=== PATIENT | male | born 1955 | race Caucasian/White ===

== ENCOUNTER 2017-02-12 22:41 | Observation (INO) | payer OTHER ==
[~2017-02-12] VITALS: Ht 182.9 cm; Wt 191.4 kg
--- NOTE | 2017-02-12 22:59 | ED Cardiac General ---
History of Present Illness General Chief Complaint: Chest Pain Stated Complaint: CHEST PAIN Nursing Triage Note: PT TO ED 8 W/ FAMILY FOR C/O ELEVATED BP, LT ARM ET LT NECK PAIN ET INCREASED SOB. REPORTS HE HAS BEEN RETAINING FLUID SO HE'S INCREASED HIS LASIX. NO OTHER C/O VOICED Source: patient, spouse Exam Limitations: no limitations History of Present Illness Time seen by provider: 22:52 Initial Comments Patient presents ER with his by private conveyance with chief complaint of about half an hour prior to arrival he started feeling left arm and neck and jaw pain as well as numbness. No chest pain, shortness of breath, cough. He is chronically on O2 and stop smoking about 25 years ago. He has a rescue inhaler at home for COPD but does not used recently. He has a history of coronary disease. He denies nausea, chest pain, fever, chills. He says he had a nuclear stress test about 6 months ago in [place] that was negative as well as a echocardiogram that showed his ejection fraction had improved to about 27% from 24%. He has a history of CHF for which she is using 40 mg Lasix once a day. Yesterday he started using it twice a day because he felt that he was getting his more swollen. He does not check his weight daily. He recently moved approximately one month ago to the area from [place] after a hospitalization stay and acute on chronic kidney injury that his doctor recommended he get out of elevation for. He is diabetic and uses glipizide. He is not with thyroid disease. He does have high blood pressure yesterday his blood pressure was quite elevated so he took an extra half of his long-acting metoprolol in the evening per his doctor's instructions. Today it was still elevated so he decided to come to the ER after started having the left arm numbness. NTG SL TRANSFORMATION ANALYST: No ASA po TRANSFORMATION ANALYST: No Allergies and Home Medications Allergies Coded Allergies: meperidine (Verified Allergy, Unknown, 02/12/17) Home Medications Aspirin 81 Mg Tablet.dr, 81 MG PO, (Reported) Benazepril HCl 40 Mg Tab, 20 MG PO DAILY, (Reported) Cyanocobalamin (Vitamin B-12) 1,000 Mcg Tablet, 1,000 MCG PO, (Reported) Furosemide 40 Mg Tablet, 80 MG PO BID, (Reported) Glipizide 10 Mg Tablet, 10 MG PO DAILY, (Reported) Levothyroxine Sodium 175 Mcg Tablet, 175 MCG PO DAILY, (Reported) Metoprolol Succinate 100 Mg Tab.er.24h, 100 MG PO DAILY, (Reported) Omeprazole 20 Mg Capsule.dr, 20 MG PO DAILY, (Reported) Potassium Chloride 10 Meq Tab.er.prt, 10 MEQ PO, (Reported) Pravastatin Sodium 40 Mg Tablet, 40 MG PO HS, (Reported) Spironolactone 25 Mg Tablet, 25 MG PO DAILY, (Reported) Topiramate 25 Mg Tablet, 25 MG PO BID, (Reported) Review of Systems Constitutional: No chills, No diaphoresis EENTM: No Eye Pain, No Ear Pain Respiratory: Denies Cough, Denies Orthopnea, Denies Shortness of Air (he is at his baseline level of shortness of air), SOA With Exertion Cardiovascular: See HPI, Denies Chest Pain, Edema, Denies Syncope Gastrointestinal: Denies Abdominal Pain, Denies Constipated, Denies Diarrhea, Denies Nausea, Denies Vomiting Genitourinary: Denies Burning, Denies Discharge Musculoskeletal: No back pain, No joint pain Skin: No pruritus, No rash Psychiatric/Neurological: Denies Headache, Denies Numbness, Denies Paresthesia Endocrine: Denies Increased Thrist, Denies Increased Urine Past Tqdlruq-Nkgixs-Nkqgbq Hx Patient Social History Alcohol Use: Denies Use Recreational Drug Use: No Smoking Status: Never a Smoker Recent Foreign Travel: No Contact w/Someone Who Travel: No Recent Infectious Disease Expo: No Recent Hopitalizations: No Respiratory Respiratory Disorders: COPD Cardiovascular Cardiac Disorders: Heart Attack, Hypertension Physical Exam Vital Signs Vital Sign - Last 12Hours Capillary Refill : Less Than 3 Seconds General Appearance: Mild Distress, Obese HEENT: PERRL/EOMI, Pharynx Normal Neck: Normal Inspection, Non Tender, Supple Respiratory: Chest Non Tender, No Accessory Muscle Use, Decreased Breath Sounds Cardiovascular: Regular Rate, Rhythm, No Edema, No Gallop Gastrointestinal: Normal Bowel Sounds, Non Tender, Soft Extremity: Normal Capillary Refill, Pedal Edema (2+) Neurologic/Psychiatric: Alert, Oriented x3, Normal Mood/Affect Skin: Normal Color, Warm/Dry Progress/Results/Core Measures Results/Orders Lab Results Laboratory Tests Test 02/12/17 22:50 Range/Units White Blood Count 10.0 4.3-11.0 10^3/uL Red Blood Count 5.27 4.35-5.85 10^6/uL Hemoglobin 15.2 13.3-17.7 G/DL Hematocrit 48 40-54 % Mean Corpuscular Volume 90 80-99 FL Mean Corpuscular Hemoglobin 29 25-34 PG Mean Corpuscular Hemoglobin Concent 32 32-36 G/DL Red Cell Distribution Width 13.2 10.0-14.5 % Platelet Count 208 130-400 10^3/uL Mean Platelet Volume 10.4 7.4-10.4 FL Neutrophils (%) (Auto) 62 42-75 % Lymphocytes (%) (Auto) 28 12-44 % Monocytes (%) (Auto) 9 0-12 % Eosinophils (%) (Auto) 2 0-10 % Basophils (%) (Auto) 0 0-10 % Neutrophils # (Auto) 6.2 1.8-7.8 X 10^3 Lymphocytes # (Auto) 2.8 1.0-4.0 X 10^3 Monocytes # (Auto) 0.9 0.0-1.0 X 10^3 Eosinophils # (Auto) 0.2 0.0-0.3 10^3/uL Basophils # (Auto) 0.0 0.0-0.1 10^3/uL Prothrombin Time 12.6 12.2-14.7 SEC INR Comment 0.9 0.8-1.4 Activated Partial Thromboplast Time 29 24-35 SEC Sodium Level 137 135-145 MMOL/L Potassium Level 4.0 3.6-5.0 MMOL/L Chloride Level 100 98-107 MMOL/L Carbon Dioxide Level 26 21-32 MMOL/L Anion Gap 11 5-14 MMOL/L Blood Urea Nitrogen 17 7-18 MG/DL Creatinine 1.19 0.60-1.30 MG/DL Estimat Glomerular Filtration Rate > 60 BUN/Creatinine Ratio 14 Glucose Level 194 H 70-105 MG/DL Calcium Level 9.4 8.5-10.1 MG/DL Magnesium Level 2.0 1.8-2.4 MG/DL Total Bilirubin 0.7 0.1-1.0 MG/DL Aspartate Amino Transf (AST/SGOT) 33 5-34 U/L Alanine Aminotransferase (ALT/SGPT) 30 0-55 U/L Alkaline Phosphatase 142 H 40-136 U/L Myoglobin 52.2 10.0-92.0 NG/ML Troponin I < 0.30 <0.30 NG/ML B-Type Natriuretic Peptide 342.9 H <100.0 PG/ML Total Protein 7.9 6.4-8.2 GM/DL Albumin 3.9 3.2-4.5 GM/DL My Orders Orders - BERKLEY NORIEGA Cbc With Automated Diff (02/12/17 23:00) Magnesium (02/12/17:00) Chest 1 View, Ap/Pa Only (02/12/17 23:00) Ekg Tracing (02/12/17:00) Cardiac Profile 1 (02/12/17:00) Comprehensive Metabolic Panel (02/12/17:00) Myoglobin Serum (02/12/17:00) Protime With Inr (02/12/17:00) Partial Thromboplastin Time (02/12/17 23:00) O2 (02/12/17:00) Monitor-Rhythm Ecg Trace Only (02/12/17:00) Lipid Panel (02/13/17 06:00) Aspirin Chewable Tablet (Baby Aspirin Ch (02/12/17 23:00) Saline Lock/Iv-Start (02/12/17 23:00) BNP (02/12/17:00) Medications Given in ED Current Medications Medications Dose Ordered Sig/Brittany Route Start Time Stop Time Status Last Admin Dose Admin Aspirin 324 mg ONCE ONCE PO 02/12/17 23:00 02/12/17 23:03 DC 02/12/17 23:08 324 MG Vital Signs/I&O Vital Sign - Last 12Hours 02/12/17 02/12/17 22:41 22:41 Temp 98.1 Pulse 105 Resp 28 B/P (MAP) 196/126 Pulse Ox 96 O2 Delivery Nasal Cannula Nasal Cannula O2 Flow Rate 3.00 3.0 Blood Pressure Mean: 149 Progress Note : Time: 01:51 Progress Note Patient is a history of an ejection fraction of 27% but his BNP is only marginally elevated. He is edematous and while he doesn't check his weight see feels he is much more edematous than normal. He is having a few symptoms of atypical angina. Would be reasonable to do a overnight observation and rule out of his ACS with serial troponins and EKGs and its impending give him some IV Lasix and trying get him caught up with his fluid status. ECG Initial ECG Impression Date: Feb 12, 2017 Initial ECG Impression Time: 22:47 Initial ECG Rate: 97 Initial ECG Rhythm: Normal Sinus Initial ECG Intervals: Normal Initial ECG Impression: Normal, Nonspecific Changes Initial ECG Comparisson: No Previous ECG Available Comment No ST wave elevation or depression Diagnostic Imaging Diagonstic Imaging: Xray Plain Films/CT/US/NM/MRI: chest Comments Poor penetration. Patchy pulmonary infiltrates versus underpenetration. Reviewed: Reviewed by Me Departure Communication Time/Spoke to Admitting Phy: 00:[phone] Guzman and she agrees with plan will see the patient in the morning. She wants Dr. Lincoln, cardiology consult in the morning. Impression Impression: Primary Impression: ACS (acute coronary syndrome) Additional Impression: CHF exacerbation Qualified Codes: I50.23 - Acute on chronic systolic (congestive) heart failure Disposition: 09 ADMITTED INPATIENT (obs) Condition: Stable Admissions Decision to Admit Reason: Admit from ER (General) Decision to Admit/Date: Feb 13, 2017 Time/Decision to Admit Time: 01:04 BERKLEY NORIEGA Feb 12, 2017 22:59
[2017-02-12] MEDS ORDERED: ASPIRIN 81 MG CHEW (CHILDREN'S ASA) PO ONE (23:00)
[2017-02-12] MEDS ORDERED: BNZ40T PO (23:05)
[2017-02-12] MEDS ORDERED: METO-395 PO (23:05)
[2017-02-12] MEDS ORDERED: PRAV40TA2 PO (23:05)
[2017-02-12] MEDS ORDERED: GLIP10TA13 PO (23:05)
[2017-02-12] MEDS ORDERED: CYAN100088 PO (23:05)
[2017-02-12] MEDS ORDERED: POTA10TA36 PO (23:05)
[2017-02-12] MEDS ORDERED: ASPI-586 PO (23:05)
[2017-02-12] MEDS ORDERED: OMEP20CA12 PO (23:05)
[2017-02-12] MEDS ORDERED: FURO-124 PO (23:05)
[2017-02-12] MEDS ORDERED: SPIR25TA3 PO (23:05)
[2017-02-12] MEDS ORDERED: TOPI25TA10 PO (23:05)
[2017-02-12] MEDS ORDERED: LEVO175T5 PO (23:05)
[2017-02-12 23:12] LABS: BASOPHILS % (AUTO) 0 % (0-10); EOSINOPHILS # (AUTO) 0.2 10^3/uL (0.0-0.3); EOSINOPHILS % (AUTO) 2 % (0-10); LYMPHOCYTES # (AUTO) 2.8 X 10^3 (1.0-4.0); LYMPHOCYTES % (AUTO) 28 % (12-44); MEAN CORPUSCULAR HEMOGLOBIN 29 PG (25-34); MEAN CORPUSCULAR HGB CONC 32 G/DL (32-36); MEAN CORPUSCULAR VOLUME 90 FL (80-99); MEAN PLATELET VOLUME 10.4 FL (7.4-10.4); MONOCYTES # (AUTO) 0.9 X 10^3 (0.0-1.0); MONOCYTES % (AUTO) 9 % (0-12); NEUTROPHILS # (AUTO) 6.2 X 10^3 (1.8-7.8); NEUTROPHILS % (AUTO) 62 % (42-75); PLATELET COUNT 208 10^3/uL (130-400); RED BLOOD COUNT 5.27 10^6/uL (4.35-5.85); RED CELL DISTRIBUTION WIDTH 13.2 % (10.0-14.5)
[2017-02-12 23:16] LABS: INR 0.9 (0.8-1.4); PROTHROMBIN TIME PATIENT 12.6 SEC (12.2-14.7)
[2017-02-12 23:39] LABS: ALANINE AMINOTRANSFERASE 30 U/L (0-55); ALBUMIN 3.9 GM/DL (3.2-4.5); ANION GAP 11 MMOL/L (5-14); ASPARTATE AMINO TRANSFERASE 33 U/L (5-34); BILIRUBIN,TOTAL 0.7 MG/DL (0.1-1.0); BLOOD UREA NITROGEN 17 MG/DL (7-18); BUN/CREATININE RATIO 14; CALCIUM 9.4 MG/DL (8.5-10.1); CARBON DIOXIDE 26 MMOL/L (21-32); CHLORIDE 100 MMOL/L (98-107); CREATININE SERUM 1.19 MG/DL (0.60-1.30); GFR ESTIMATED > 60; GLUCOSE 194 MG/DL (70-105); SODIUM 137 MMOL/L (135-145); TOTAL PROTEIN 7.9 GM/DL (6.4-8.2)
[2017-02-12 23:47] LABS: MYOGLOBIN SERUM 52.2 NG/ML (10.0-92.0)
[2017-02-13] MEDS ORDERED: FUROSEMIDE 40 MG/4 ML INJ (LASIX) IVP ONE (01:00)
[2017-02-13 03:35] VITALS: BP 135/78
[2017-02-13] MEDS ORDERED: morphine INJ 4 MG/ML 1 ML (VIAL/SYRINGE) IVP PRN (04:15)
[2017-02-13] MEDS ORDERED: NITROGLYCERIN SUBLINGUAL 0.4 MG TAB (NITROSTAT) SL PRN (04:15)
[2017-02-13] MEDS ORDERED: CATHETER FLUSH 10 ML SYR IV PRN (05:30)
[2017-02-13 06:18] LABS: BASOPHILS % (AUTO) 0 % (0-10); EOSINOPHILS # (AUTO) 0.2 10^3/uL (0.0-0.3); EOSINOPHILS % (AUTO) 2 % (0-10); LYMPHOCYTES # (AUTO) 1.9 X 10^3 (1.0-4.0); LYMPHOCYTES % (AUTO) 23 % (12-44); MEAN CORPUSCULAR HEMOGLOBIN 29 PG (25-34); MEAN CORPUSCULAR HGB CONC 32 G/DL (32-36); MEAN CORPUSCULAR VOLUME 90 FL (80-99); MEAN PLATELET VOLUME 10.2 FL (7.4-10.4); MONOCYTES # (AUTO) 0.8 X 10^3 (0.0-1.0); MONOCYTES % (AUTO) 9 % (0-12); NEUTROPHILS # (AUTO) 5.4 X 10^3 (1.8-7.8); NEUTROPHILS % (AUTO) 66 % (42-75); PLATELET COUNT 191 10^3/uL (130-400); RED BLOOD COUNT 5.12 10^6/uL (4.35-5.85); RED CELL DISTRIBUTION WIDTH 13.2 % (10.0-14.5); WHITE BLOOD COUNT 8.2 10^3/uL (4.3-11.0)
[2017-02-13 06:49] LABS: ANION GAP 11 MMOL/L (5-14); BLOOD UREA NITROGEN 18 MG/DL (7-18); BUN/CREATININE RATIO 17; CALCIUM 8.9 MG/DL (8.5-10.1); CARBON DIOXIDE 29 MMOL/L (21-32); CHLORIDE 98 MMOL/L (98-107); CREATININE SERUM 1.09 MG/DL (0.60-1.30); GFR ESTIMATED > 60; GLUCOSE 203 MG/DL (70-105); POTASSIUM 3.7 MMOL/L (3.6-5.0); SODIUM 138 MMOL/L (135-145)
[2017-02-13 06:58] LABS: TROPONIN I < 0.30 NG/ML (<0.30)
[2017-02-13 06:58] LABS: CHOLESTEROL 153 MG/DL (< 200); DIRECT LDL 100 MG/DL (1-129); TRIGLYCERIDES 195 MG/DL (<150); VLDL CHOLESTEROL 39 MG/DL (5-40)
[2017-02-13] MEDS: CATHETER FLUSH 10 ML SYR IV SCH ×3 (07:01→20:12)
[2017-02-13] MEDS: inSUlin (REGULAR) HUMAN 1 UNIT/0.01 ML (CHARGE PER UNIT) SC SCH ×5 (07:06→20:39)
[2017-02-13 07:19] VITALS: BP 115/69
--- NOTE | 2017-02-13 07:46 | Diagnostic Imaging Report ---
CLINICAL INDICATION: Patient complains of elevated blood pressure, left arm and left leg pain and increased shortness of breath. EXAM: Portable chest x-ray upright view. COMPARISON: None. FINDINGS: There is cardiomegaly. There is minimally prominent pulmonary vasculature centrally. There is no lung infiltrate. There is no pleural effusion or pneumothorax. There are degenerative spurs involving the thoracic spine. IMPRESSION: 1: There is cardiomegaly and minimal prominence of the pulmonary vasculature centrally. These findings may be related to mild congestive heart failure. 2: Otherwise, the remainder of the chest x-ray exam is unremarkable for patient's age. Dictated by: Dictated on workstation # [id number]
--- NOTE | 2017-02-13 08:08 | Diagnostic Imaging Report ---
CLINICAL INDICATION: Patient with shortness of air. Followup exam. Portable chest x-ray upright view. COMPARISON: Chest x-ray dated 02/12/2017. FINDINGS: Stable cardiomegaly. There is interval decrease in pulmonary vascular congestion. Lungs are clear. There is no pleural effusion or pneumothorax. The remainder of this exam shows no significant interval change compared to the prior study of comparison. IMPRESSION: Stable cardiomegaly with interval resolution of the previously seen pulmonary vascular congestion. Dictated by: Dictated on workstation # [id number]
[2017-02-13] MEDS: lisINopril 20 MG (ZESTRIL) TAB PO SCH ×2 (08:21→10:28)
[2017-02-13] MEDS: FUROSEMIDE 40 MG/4 ML INJ (LASIX) IVP SCH ×2 (08:22→17:35)
[2017-02-13] MEDS ORDERED: ASPIRIN E.C. 325 MG (ECOTRIN) TABLET PO SCH (09:00)
[2017-02-13] MEDS ORDERED: meTOprolol SUCCINATE 100 MG (TOPROL XL) TAB PO SCH (09:00)
[2017-02-13] MEDS ORDERED: ASPI-983 PO (09:17)
--- NOTE | 2017-02-13 09:48 | Consultation-Cardiology ---
HPI-Cardiology Cardiology Consultation: Date of Consultation 02/13/17 Time Seen by Provider: 09:50 Date of Admission Attending Physician Jessie Guzman MD Admitting Physician Consulting Physician LANCE TAPIA MD, MA, FACP, FACC, FSCAI, CCDS HPI: Chief Complaint: Shortness of breath HPI: 61 yo man with a h/o cm and CHF who has recently moved to this area from [place] He has been experiencing increasing shortness of breath and leg swelling for several day. Has simultaneously had an elevated bp. No cp. No palp or syncope. Does report some cp down the L side of the arm for several days. Chronic leg swelling that has been worse lately Review of Systems-Cardiology Review of Systems Constitutional: malaise, tiredness Eyes: No vision change Ears/Nose/Throat: No ear discharge, No nasal drainage, No recent hearing loss Respiratory: As described under HPI Cardiovascular: As described under HPI Gastrointestinal: No constipation, No diarrhea, No nausea, No vomiting Genitourinary: No dysuria, No hematuria, No urine frequency changes Musculoskeletal: back pain (chornic), joint pain (chronci) Skin: No rash, No ulcerations Psychiatric/Neurological: No seizure, No focal weakness, No syncope Hematologic: No bleeding abnormalities PMO-Nxgmqy-Xerlii Hx Patient Social History Alcohol Use: Rarely Uses Recreational Drug Use: No Smoking Status: Former Smoker Type Used: Cigarettes Recent Foreign Travel: No Recent Infectious Disease Expo: No Hospitalization with Isolation: Denies Physical Abuse Screen: No Sexual Abuse: No Past Medical History PMH As described under Assessment. Family Medical History Family History: Cardiovascular disease 19 FATHER 19 MOTHER Diabetes mellitus 19 FATHER 19 MOTHER Hypercholesterolemia 19 FATHER 19 MOTHER Hypertension 19 FATHER 19 MOTHER Myocardial infarction 19 FATHER 19 MOTHER Allergies and Home Medications Allergies Coded Allergies: meperidine (Verified Allergy, Unknown, 02/12/17) Home Medications Aspirin 81 Mg Tablet.dr, 81 MG PO HS, (Reported) Benazepril HCl 40 Mg Tab, 20 MG PO DAILY, (Reported) TAKES 1/2 (40MG) TABLET Cyanocobalamin (Vitamin B-12) 1,000 Mcg Tablet, 1,000 MCG PO HS, (Reported) Furosemide 40 Mg Tablet, 40-80 MG PO DAILY, (Reported) TAKES 1 (40MG) TABLET DAILY - CAN TAKE 2 (40MG) TABLETS IF NOTICEABLE SWELLING Glipizide 10 Mg Tablet, 10 MG PO DAILY, (Reported) Levothyroxine Sodium 175 Mcg Tablet, 175 MCG PO DAILY, (Reported) Metoprolol Succinate 100 Mg Tab.er.24h, 100 MG PO DAILY, (Reported) Omeprazole 20 Mg Capsule.dr, 20 MG PO DAILY, (Reported) Potassium Chloride 10 Meq Tab.er.prt, 10 MEQ PO DAILY, (Reported) TAKES WHEN TAKING 80MG OF FUROSEMIDE Pravastatin Sodium 40 Mg Tablet, 40 MG PO HS, (Reported) Spironolactone 25 Mg Tablet, 25 MG PO 1200, (Reported) Topiramate 25 Mg Tablet, 25 MG PO HS, (Reported) Physical Exam-Cardiology Physical Exam Vital Signs/I&O Vital Sign - Last 12Hours 02/12/17 02/12/17 02/12/17 02/13/17 22:41 22:41 22:41 01:50 Temp 98.1 Pulse 105 88 Resp 28 24 B/P (MAP) 196/126 Pulse Ox 96 95 95 O2 Delivery Nasal Cannula Nasal Cannula Nasal Cannula Nasal Cannula O2 Flow Rate 3.00 2.00 3.0 2.00 02/13/17 02/13/17 02/13/17 02/13/17 02:15 03:00 03:35 07:02 Temp 98.7 Pulse 111 89 87 Resp 18 B/P (MAP) 135/78 Pulse Ox 97 O2 Delivery Nasal Cannula Room Air O2 Flow Rate 2.00 02/13/17 07:19 Temp 96.7 Pulse 95 Resp 20 B/P (MAP) 115/69 Pulse Ox 96 O2 Delivery Room Air Capillary Refill : Less Than 3 Seconds Constitutional: AAO x 3, well-developed, well-nourished, other (obese) HEENT: PERRL, No xanthelasmas are seen Neck: No carotid bruit, carotid pulses are 2 + bilaterally, with good upstrokes Respiratory: No accessory muscle use, other (fair bilat air entry; increased exp phase; basal crackles) Cardiovascular: regular rate-rhythm, S1 and S2, systolic murmur (faint MANUEL at card base) Gastrointestinal: No tender, No guarding, No rebound, audible bowel sounds Extremities: No clubbing, significant edema Neurologic/Psychiatric: grossly intact, power is 5/5 both on sides Skin: No rash on exposed areas, No ulcerations on exposed areas Data Review Labs Laboratory Tests 02/12/17 22:50: White Blood Count 10.0, Red Blood Count 5.27, Hemoglobin 15.2, Hematocrit 48, Mean Corpuscular Volume 90, Mean Corpuscular Hemoglobin 29, Mean Corpuscular Hemoglobin Concent 32, Red Cell Distribution Width 13.2, Platelet Count 208, Mean Platelet Volume 10.4, Neutrophils (%) (Auto) 62, Lymphocytes (%) (Auto) 28 , Monocytes (%) (Auto) 9, Eosinophils (%) (Auto) 2, Basophils (%) (Auto) 0, Neutrophils # (Auto) 6.2, Lymphocytes # (Auto) 2.8, Monocytes # (Auto) 0.9, Eosinophils # (Auto) 0.2, Basophils # (Auto) 0.0, Prothrombin Time 12.6, INR Comment 0.9, Activated Partial Thromboplast Time 29, Sodium Level 137, Potassium Level 4.0, Chloride Level 100, Carbon Dioxide Level 26, Anion Gap 11, Blood Urea Nitrogen 17, Creatinine 1.19, Estimat Glomerular Filtration Rate > 60 , BUN/Creatinine Ratio 14, Glucose Level 194H, Calcium Level 9.4, Magnesium Level 2.0, Total Bilirubin 0.7, Aspartate Amino Transf (AST/SGOT) 33, Alanine Aminotransferase (ALT/SGPT) 30, Alkaline Phosphatase 142H, Myoglobin 52.2, Troponin I < 0.30, B-Type Natriuretic Peptide 342.9H, Total Protein 7.9, Albumin 3.9 02/13/17 05:45: Triglycerides Level 195H, Cholesterol Level 153, LDL Cholesterol Direct 100, VLDL Cholesterol 39, HDL Cholesterol 25L 02/13/17 05:47: White Blood Count 8.2, Red Blood Count 5.12, Hemoglobin 14.7, Hematocrit 46, Mean Corpuscular Volume 90, Mean Corpuscular Hemoglobin 29, Mean Corpuscular Hemoglobin Concent 32, Red Cell Distribution Width 13.2, Platelet Count 191, Mean Platelet Volume 10.2, Neutrophils (%) (Auto) 66, Lymphocytes (%) (Auto) 23 , Monocytes (%) (Auto) 9, Eosinophils (%) (Auto) 2, Basophils (%) (Auto) 0, Neutrophils # (Auto) 5.4, Lymphocytes # (Auto) 1.9, Monocytes # (Auto) 0.8, Eosinophils # (Auto) 0.2, Basophils # (Auto) 0.0, Sodium Level 138, Potassium Level 3.7, Chloride Level 98, Carbon Dioxide Level 29, Anion Gap 11, Blood Urea Nitrogen 18, Creatinine 1.09, Estimat Glomerular Filtration Rate > 60, BUN/ Creatinine Ratio 17, Glucose Level 203H, Calcium Level 8.9, Troponin I < 0.30 Laboratory Tests 02/12/17 22:50 02/13/17 05:47 A/P-Cardiology Assessment/Admission Diagnosis Shortness of breath (multifactorial, as noted below) Ac on chronic systolic CHF Cardiomyopathy and chronic CHF, by history Obesity-hypoventilation syndrome H/o ac renal failure in 2015 in [place] ([facility]) DM II Hypertension Hyperlipidemia Quit smoking in the 1980s Discussion and Recomendations Continue therapy with diuretics, CYRUS-inhib, and bb Monitor labs Echo to eval LVEF MPI to eval for obs CAD Risk factor modification reviewed Clinical Quality Measures AMI/AHF: ASA po Prior to arrival: No DVT/VTE Risk/Contraindication: Risk Factor Score Per Nursin RFS Level Per Nursing on Admit: 3=High LANCE TAPIA MD FACP FAC CCDS Feb 13, 2017 09:48
[2017-02-13] MEDS ORDERED: BENAZEPRIL 20 MG (LOTENSIN) TAB PO NR (10:00)
[2017-02-13 11:42] VITALS: BP 147/88
[2017-02-13] MEDS ORDERED: BENAZEPRIL 20 MG (LOTENSIN) TAB PO ONE (12:15)
[2017-02-13 16:00] VITALS: BP 155/82
--- NOTE | 2017-02-13 17:01 | History & Physical-Hospitalist ---
HPI History of Present Illness: HPI/Chief Complaint The patient is a 61-year-old white male who presented to the emergency room late last night with complaints of shortness of breath and fluid retention. He reports that he has had problems for some time with congestive heart failure. He was found to have an ejection fraction while in [place] of 24 percent. A follow-up by his manager beverage showed that to have improved to 27 percent over about a 6 month period. He also suffers from COPD. He stopped smoking about 25 years ago. He has had chronic O2 use. It was recommended to him by his manager beverage in [place] that moving to a lower altitude would be a good move for his heart and lung health. He has been here about one month. He reports that he had been taking Lasix 40 mg daily. He had continued to retain fluid in spite of this and had increased it to twice daily on Monday. This did not change much. He is also hypertensive. He reported that shortly before he came to the emergency room he noticed the onset of numbness in his left arm. He states that he had had 2 heart attacks about 20 years ago. Obesity has been a problem as well. His present weight is 430 pounds Source: patient Exam Limitations: no limitations Date Seen 02/13/17 Time Seen by Provider: 16:56 Attending Physician Adam Plascencia MD PCP Referring Physician Date of Admission Feb 13, 2017 at 02:05 Home Medications & Allergies Home Medications Reviewed patient Home Medication Reconciliation Form Allergies Allergies Coded Allergies meperidine (Verified Allergy, Unknown, 02/12/17) Past Pamthij-Bikaab-Hvfrdv Hx Patient Social History Alcohol Use: Rarely Uses Number of Drinks Today: 0 Recreational Drug Use: No Smoking Status: Former Smoker Former Smoker, Quit: Feb 13, 1987 Type Used: Cigarettes Physical Abuse Screen: No Sexual Abuse: No Recent Foreign Travel: No Contact w/other who traveled: No Recent Hopitalizations: No Recent Infectious Disease Expo: No Seasonal Allergies Seasonal Allergies: No Surgeries No (KNEE SURGERY, LEFT SHOULDER SURGERY, HERNIA REPAIR, GALLBLADDER OUT) Respiratory Yes Currently Using CPAP: Yes Currently Using BIPAP: No Cardiovascular Yes Heart Attack, Hypertension Neurological No (4 TIA'S, 1 STROKE ) Reproductive System Sexually Transmitted Disease: No HIV/AIDS: No Genitourinary Yes Kidney Stones Gastrointestinal Yes Gastroesophageal Reflux Musculoskeletal Yes (HIP FX, TWO TORN ROTATOR CUFFS ) Degenerate Disk Disease, Arthritis, Chronic Back Pain, Fractures Endocrine History of Endocrine Disorders: Yes Are Your Blood Sugars Over 250: Yes ("SOMETIMES" ) HEENT History of HEENT Disorders: Yes HEENT Disorders: Cataract Cancer No Psychosocial History of Psychiatric Problem: No Integumentary History of Skin or Integumenta: No Blood Transfusions History of Blood Disorders: No Adverse Reaction to a Blood Tr: No Family Medical History Family Hx: Cardiovascular disease 19 FATHER 19 MOTHER Diabetes mellitus 19 FATHER 19 MOTHER Hypercholesterolemia 19 FATHER 19 MOTHER Hypertension 19 FATHER 19 MOTHER Myocardial infarction 19 FATHER 19 MOTHER Review of Systems Constitutional: see HPI EENTM: no symptoms reported Respiratory: dyspnea on exertion, orthopnea, short of breath Cardiovascular: chest pain Gastrointestinal: no symptoms reported Genitourinary: hematuria, incontinence Musculoskeletal: no symptoms reported Skin: other (legs swollen to the point of redness and shine) Psychiatric/Neurological: No Symptoms Reported Physical Exam Physical Exam Vital Signs Capillary Refill : Less Than 3 Seconds General Appearance: Mild Distress, Moderate Distress Eyes: Bilateral Eye Normal Inspection HEENT: Normal ENT Inspection Neck: Full Range of Motion Respiratory: Decreased Breath Sounds (very distant) Cardiovascular: Other (heart tones poorly heard because of size) Gastrointestinal: Other (huge with extremely large pannus) Back: Normal Inspection Extremity: Swelling (extreme with redness to the knees. No blisters are noted. Skin is not particularly shiny at this point) Neurologic/Psychiatric: Alert, Oriented x3, No Motor/Sensory Deficits, Normal Mood/Affect Skin: Normal Color, Warm/Dry Lymphatic: No Adenopathy Results Results/Procedures Lab Assessment/Plan Admission Diagnosis Anasarca. 2.History of cardiomyopathy with the ejection fraction in the mid 20s. 3.COPD Assessment and Plan IV diuretics Clinical Quality Measures AMI/AHF: ASA po Prior to arrival: No DVT/VTE Risk/Contraindication: Risk Factor Score Per Nursin RFS Level Per Nursing on Admit: 3=High ADAM PLASCENCIA MD Feb 13, 2017 17:01
[2017-02-13 19:26] VITALS: BP 153/83
[2017-02-13] MEDS: meTOprolol SUCCINATE 100 MG (TOPROL XL) TAB PO SCH (20:13)
[2017-02-13] MEDS ORDERED: ATORVASTATIN 40 MG (LIPITOR) TABLET PO SCH (21:00)
[2017-02-13] MEDS ORDERED: ASPIRIN E.C. 81 MG (ECOTRIN) TAB PO SCH (21:00)
[2017-02-13 23:35] VITALS: BP 145/85
[2017-02-14 04:12] VITALS: BP 121/75
[2017-02-14] MEDS: inSUlin (REGULAR) HUMAN 1 UNIT/0.01 ML (CHARGE PER UNIT) SC SCH ×2 (05:53→11:13)
[2017-02-14] MEDS: CATHETER FLUSH 10 ML SYR IV SCH (05:55)
[2017-02-14] MEDS ORDERED: LEVOTHYROXINE 175 MCG PO SCH (06:30)
[2017-02-14 06:49] LABS: BASOPHILS % (AUTO) 0 % (0-10); EOSINOPHILS # (AUTO) 0.1 10^3/uL (0.0-0.3); EOSINOPHILS % (AUTO) 2 % (0-10); LYMPHOCYTES # (AUTO) 1.6 X 10^3 (1.0-4.0); LYMPHOCYTES % (AUTO) 22 % (12-44); MEAN CORPUSCULAR HEMOGLOBIN 29 PG (25-34); MEAN CORPUSCULAR HGB CONC 32 G/DL (32-36); MEAN CORPUSCULAR VOLUME 91 FL (80-99); MEAN PLATELET VOLUME 10.5 FL (7.4-10.4); MONOCYTES # (AUTO) 0.8 X 10^3 (0.0-1.0); MONOCYTES % (AUTO) 10 % (0-12); NEUTROPHILS % (AUTO) 66 % (42-75); PLATELET COUNT 197 10^3/uL (130-400); RED BLOOD COUNT 5.11 10^6/uL (4.35-5.85); RED CELL DISTRIBUTION WIDTH 13.4 % (10.0-14.5); WHITE BLOOD COUNT 7.6 10^3/uL (4.3-11.0)
[2017-02-14] MEDS ORDERED: OMEPRAZOLE 20 MG (PriLOSEC) CAP NON-FORMULARY PO SCH (07:00)
[2017-02-14] MEDS ORDERED: KCL 10 MEQ TAB (MICRO K) PO SCH (07:00)
[2017-02-14 07:09] LABS: ANION GAP 14 MMOL/L (5-14); BLOOD UREA NITROGEN 19 MG/DL (7-18); BUN/CREATININE RATIO 20; CALCIUM 9.4 MG/DL (8.5-10.1); CARBON DIOXIDE 26 MMOL/L (21-32); CHLORIDE 99 MMOL/L (98-107); CREATININE SERUM 0.93 MG/DL (0.60-1.30); GFR ESTIMATED > 60; GLUCOSE 183 MG/DL (70-105); POTASSIUM 3.7 MMOL/L (3.6-5.0); SODIUM 139 MMOL/L (135-145)
[2017-02-14 07:31] LABS: THYROID STIMULATING HORMONE 4.02 UIU/ML (0.35-4.94)
[2017-02-14] MEDS ORDERED: REGADENOSON 0.4 MG/5 ML SYR (LEXISCAN) IV ONE ×2 (08:45→09:30)
[2017-02-14] MEDS ORDERED: BENAZEPRIL 20 MG (LOTENSIN) TAB PO SCH (09:00)
[2017-02-14] MEDS ORDERED: BENAZEPRIL 40 MG PO SCH (09:00)
[2017-02-14 09:01] VITALS: BP 134/83
[2017-02-14 09:22] VITALS: BP 152/105
[2017-02-14 10:00] VITALS: BP_SYST 121; BP_SYST 177; BP_DIAS 75; BP_DIAS 94
[2017-02-14] MEDS: FUROSEMIDE 40 MG/4 ML INJ (LASIX) IVP SCH (10:36)
--- NOTE | 2017-02-14 10:36 | Progress Note-Cardiology ---
Cardiology SOAP Progress Note Subjective: Continued shortness of breath, which is better. No c/o CP, palpitations, syncope or near syncope. LE edema improving. Objective: I&O/Vital Signs Vital Sign - Last 12Hours 02/14/17 02/14/17 02/14/17 02/14/17 04:12 06:40 09:01 09:22 Temp 98.6 Pulse 84 102 88 117 Resp 20 B/P (MAP) 121/75 134/83 152/105 Pulse Ox 97 97 98 O2 Delivery Nasal Cannula O2 Flow Rate 1.50 2.00 2.00 02/14/17 02/14/17 02/14/17 02/14/17 10:00 10:00 12:00 13:06 Temp 97.8 97.8 Pulse 113 90 93 Resp 24 20 B/P (MAP) 177/94 164/74 Pulse Ox 95 96 O2 Delivery Nasal Cannula Nasal Cannula Nasal Cannula O2 Flow Rate 2.00 1.50 2.00 Weight (Pounds): 422 Weight (Ounces): 2.0 Weight (Calculated Kilograms): [phone] Constitutional: AAO x 3, well-developed, well-nourished, other (obese) Respiratory: No accessory muscle use, other (fair bilat air entry; increased exp phase; basal crackles) Cardiovascular: regular rate-rhythm, S1 and S2, systolic murmur (faint MANUEL at card base) Gastrointestional: No tender, No guarding, No rebound, audible bowel sounds Extremities: No clubbing, significant edema Neurologic/Psychiatric: grossly intact, power is 5/5 both on sides Skin: No rash on exposed areas, No ulcerations on exposed areas Results/Procedures: Labs Laboratory Tests 02/13/17 16:16: Glucometer 237H 02/13/17 20:37: Glucometer 237H 02/14/17 05:40: White Blood Count 7.6, Red Blood Count 5.11, Hemoglobin 14.7, Hematocrit 47, Mean Corpuscular Volume 91, Mean Corpuscular Hemoglobin 29, Mean Corpuscular Hemoglobin Concent 32, Red Cell Distribution Width 13.4, Platelet Count 197, Mean Platelet Volume 10.5H, Neutrophils (%) (Auto) 66, Lymphocytes (%) (Auto) 22 , Monocytes (%) (Auto) 10, Eosinophils (%) (Auto) 2, Basophils (%) (Auto) 0, Neutrophils # (Auto) 5.0, Lymphocytes # (Auto) 1.6, Monocytes # (Auto) 0.8, Eosinophils # (Auto) 0.1, Basophils # (Auto) 0.0, Sodium Level 139, Potassium Level 3.7, Chloride Level 99, Carbon Dioxide Level 26, Anion Gap 14, Blood Urea Nitrogen 19H, Creatinine 0.93, Estimat Glomerular Filtration Rate > 60, BUN/ Creatinine Ratio 20, Glucose Level 183H, Calcium Level 9.4, Magnesium Level 2.0 , Thyroid Stimulating Hormone (TSH) 4.02 02/14/17 05:53: Glucometer 183H 02/14/17 10:59: Glucometer 257H A/P: Assessment: Shortness of breath (multifactorial, as noted below) Ac on chronic systolic CHF Echo on 02/13/17: LVEF 35-40% MPI on 02/14/17: LVEF 30%, mod cardiomegaly, no distinct evidence of ischemia or infarction Cardiomyopathy and chronic CHF, by history Obesity-hypoventilation syndrome H/o ac renal failure in 2015 in [place] [facility]) DM II Hypertension Hyperlipidemia Quit smoking in the 1980s Plan: Continue therapy with diuretics, CYRUS-inhib, and bb Monitor labs Echo to eval LVEF - results pending MPI to eval for obs CAD - results pending Risk factor modification has been reviewed Physician Assessment Physician Assessment Shotness of breath better Lungs: good bilat air entry Cor: reg Leg: bilat mod leg edema A&R * As documented in our note above that I updated (italics) and as noted below * I discussed his CV w/u results with him * Given that his cm is more than a year old and LVEF seem around 35% or less, we recommend ICD. This was discussed in detail. He understands and states will think about it * He is anxious to go home * Close outpatient cardiac f/u is advised * Furosemide and K are being increased * We answered his questions in detail Clinical Quality Measures AMI/AHF: ASA po Prior to arrival: MOLLY Varma ANODIC OPERATOR Feb 14, 2017 10:36 LANCE TAPIA MD FACP [facility] CCDS Feb 14, 2017 16:00
[2017-02-14] MEDS: meTOprolol SUCCINATE 100 MG (TOPROL XL) TAB PO SCH (10:39)
[2017-02-14 12:00] VITALS: BP 164/74
[2017-02-14] MEDS ORDERED: SPIRONOLACTONE 25 MG (ALDACTONE) TAB PO SCH (12:00)
--- NOTE | 2017-02-14 14:33 | Progress Note-Hospitalist ---
Standard Progress Note Progress Notes/Assess & Plan Date Seen 02/14/17 Time Seen by Provider: 14:23 Diagnosis Anasarca. 2.History of cardiomyopathy with the ejection fraction in the mid 20s. 3.COPD Assess & Plan/Chief Complaint The patient reports that he feels much better today. He has produced a fluid balance of negative 3410. The recorded weight would have him down 5 kg. He appears comfortable and is ready for discharge by his measures. Physical exam: He is sitting at the bedside and appears quite comfortable. He is speaking easily in full sentences. Lungs are distant to auscultation. CV is also distant to auscultation. Extremities show the skin to be much less erythematous. In addition there is no shine and no blisters are noted. It appears that through past episodes he has a certain degree of scarring in the distribution of crew socks. There is a rather sharp bulge at the calf muscles. Impression: Anasarca. Congestive heart failure. Reported but unconfirmed ejection fraction in the mid 20 percent range Labs Laboratory Tests 02/12/17 22:50 02/13/17 05:47 02/14/17 05:40 Final Diagnosis Anasarca/congestive heart failure. 2.cardiomyopathy. 3.diabetes with poor performance status LONG PLASCENCIA MD Feb 14, 2017 14:32
[2017-02-14] MEDS ORDERED: FURO-124 PO (14:37)
[2017-02-14] MEDS ORDERED: POTA-51 PO (16:08)
[2017-02-14] MEDS ORDERED: FURO80TA83 PO (16:08)
[2017-02-14 16:10] VITALS: BP 115/84
--- NOTE | 2017-02-15 06:49 | STRESS TEST ---
DATE OF SERVICE: 02/14/2017 RESTING AND POST REGADENOSON TECHNETIUM 99M TETROFOSMIN SPECT CT IMAGING ORDERING PHYSICIAN: Dr. Ayoub. PRIMARY PHYSICIAN: Dr. Aparicio. CLINICAL DIAGNOSIS: Congestive heart failure. Baseline images were carried out after injection of 10.68 mCi of technetium-99M tetrofosmin. This was followed by 0.4 mg of regadenoson and 31.4 mCi of technetium-99m tetrofosmin for stress imaging. The electrocardiogram showed sinus rhythm. The electrocardiogram did not change significantly with the regadenoson infusion. He noted mild dizziness during the procedure, but otherwise tolerated the procedure well. Review of images at rest and following stress indicate a somewhat patchy tracer uptake, but there is no distinct perfusion defect consistent with significant myocardial ischemia or infarction. Gated images show global hypokinesis of the left ventricle. Left ventricular ejection fraction is calculated to be 30%. Left ventricular end diastolic volume is 142 mL. Ejection fraction is calculated to be 30%. CONCLUSIONS: 1. Global hypokinesis of the left ventricle with an ejection fraction of 30%. 2. Moderate cardiomegaly. 3. No distinct evidence of significant myocardial ischemia or infarction. Job ID: [id number] DocumentID: [id number] Dictated Date: 02/14/2017 15:49:01 Shift Production Associate Date: 02/14/2017 19:28:08 Dictated By: LANCE AYOUB MD, MA, FACP, FACC,
== END 2017-02-14 14:38 | disposition home or self-care (01) ==
LOC: ER 22:44 → 4TH 22:49 → UNDOADMOB 02-13 00:50 → 4TH 02-13 02:05 → UNDODISOB 02-14 14:38
PROVIDERS: ADMIT Internal Medicine; ATTEND Internal Medicine
DX: R60.1 Generalized edema (principal); I11.0 Hypertensive heart disease with heart failure; I50.22 Chronic systolic (congestive) heart failure; J44.9 Chronic obstructive pulmonary disease, unspecified; I25.10 Atherosclerotic heart disease of native coronary artery without angina pectoris; E11.9 Type 2 diabetes mellitus without complications; E78.5 Hyperlipidemia, unspecified; E66.2 Morbid (severe) obesity with alveolar hypoventilation; I25.2 Old myocardial infarction; Z79.82 Long term (current) use of aspirin; Z79.84 Long term (current) use of oral hypoglycemic drugs; Z79.899 Other long term (current) drug therapy; Z99.81 Dependence on supplemental oxygen; Z87.891 Personal history of nicotine dependence
CPT/HCPCS: 36415; 71010; 78452; 80048; 80053; 80061; 82962; 83735; 83874; 83880; 84443; 84484; 85025; 85610; 85730; 93005; 93017; 93306; 96365; G0378

== ENCOUNTER 2017-07-10 12:15 | Emergency (ER) | payer MEDICARE, OTHER ==
[~2017-07-10] VITALS: Ht 188 cm; Wt 189.2 kg
[~2017-07-10 12:15] MED LIST: ASPI-586 PO; ASPI-983 PO; BNZ40T PO; CYAN100088 PO; FURO-124 PO; FURO80TA83 PO; GLIP10TA13 PO; LEVO175T5 PO; METO-395 PO; OMEP20CA12 PO; POTA-51 PO; POTA10TA36 PO; PRAV40TA2 PO; SPIR25TA3 PO; TOPI25TA10 PO
--- NOTE | 2017-07-10 12:38 | ED Cardiac General ---
History of Present Illness General Chief Complaint: Cardiac/General Problems Stated Complaint: CP Nursing Triage Note: PT STATES HYPERTENSION FOR A COUPLE DAYS, LT ARM PAIN ALSO THAT COMES AND GOES. Source: patient Exam Limitations: no limitations History of Present Illness Time seen by provider: 12:35 Initial Comments To ER with reports of high blood pressure at 170/115 yesterday and today. With this he had some transient left arm pain. No shortness of breath, no diaphoresis , no nausea, no chest pain at any point. Currently he has no symptoms. His typical blood pressure is 170/80. He states that his heart "only functions at 27 %". During one of his previous admissions here cardiology wanted to place AICD but [facility] threw a kink in that plan and wanted him to have this done at the [facility] facility in [place]. 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 dates "I'm only here to get her to shut up" pointing to his Allergies and Home Medications Allergies Coded Allergies: meperidine (Verified Allergy, Unknown, 02/12/17) Uncoded Allergies: iv contrast (Adverse Reaction, Intermediate, 07/10/17) Home Medications Aspirin 81 Mg Tablet.dr, 81 MG PO HS, (Reported) Benazepril HCl 40 Mg Tab, 20 MG PO DAILY, (Reported) TAKES 1/2 (40MG) TABLET Cyanocobalamin (Vitamin B-12) 1,000 Mcg Tablet, 1,000 MCG PO HS, (Reported) Furosemide 80 Mg Tablet, 80 MG PO DAILY, #60 Ref 3 80 mg in the morning and 40 mg in the evening Prescribed by: MOLLY APPLE on 02/14/17 160 Glipizide 10 Mg Tablet, 10 MG PO DAILY, (Reported) Levothyroxine Sodium 175 Mcg Tablet, 175 MCG PO DAILY, (Reported) Metoprolol Succinate 100 Mg Tab.er.24h, 100 MG PO DAILY, (Reported) Omeprazole 20 Mg Capsule.dr, 20 MG PO DAILY, (Reported) Potassium Chloride 20 Meq Tablet.er, 20 MEQ PO BID, #60 Prescribed by: MOLLY APPLE on 02/14/17 1608 Pravastatin Sodium 40 Mg Tablet, 40 MG PO HS, (Reported) Spironolactone 25 Mg Tablet, 25 MG PO 1200, (Reported) Topiramate 25 Mg Tablet, 25 MG PO HS, (Reported) Review of Systems Constitutional: see HPI EENTM: No Symptoms Reported Respiratory: No Symptoms Reported Cardiovascular: See HPI, Denies Chest Pain, Denies Edema, Denies Irregular Heart Rate, Denies Lightheadedness, Denies Palpitations, Denies Syncope Gastrointestinal: No Symptoms Reported Genitourinary: No Symptoms Reported Musculoskeletal: see HPI Skin: no symptoms reported Psychiatric/Neurological: No Symptoms Reported Endocrine: No Symptoms Reported Hematologic/Lymphatic: No Symptoms Reported Past Ddkbyxa-Ttehaq-Csvsyh Hx Patient Social History Type Used: Cigarettes Former Smoker, Quit: Feb 13, 1987 Recent Foreign Travel: No Contact w/Someone Who Travel: No Recent Infectious Disease Expo: No Recent Hopitalizations: No Seasonal Allergies Seasonal Allergies: No Surgeries History of Surgeries: No (KNEE SURGERY, LEFT SHOULDER SURGERY, HERNIA REPAIR, GALLBLADDER OUT) Respiratory History of Respiratory Disorde: Yes Respiratory Disorders: Sleep Apnea, COPD Currently Using CPAP: Yes Currently Using BIPAP: No Cardiovascular History of Cardiac Disorders: Yes Cardiac Disorders: Heart Attack, Hypertension Neurological History of Neurological Disord: No (4 TIA'S, 1 STROKE ) Reproductive System Sexually Transmitted Disease: No HIV/AIDS: No Genitourinary History of Genitourinary Disor: Yes Genitourinary Disorders: Kidney Stones Gastrointestinal History of Gastrointestinal Di: Yes Gastrointestinal Disorders: Gastroesophageal Reflux Musculoskeletal History of Musculoskeletal Dis: Yes (HIP FX, TWO TORN ROTATOR CUFFS ) Musculoskeletal Disorders: Degenerate Disk Disease, Arthritis, Chronic Back Pain, Fractures Endocrine History of Endocrine Disorders: Yes HEENT History of HEENT Disorders: Yes HEENT Disorders: Cataract Cancer History of Cancer: No Psychosocial History of Psychiatric Problem: No Integumentary History of Skin or Integumenta: No Blood Transfusions History of Blood Disorders: No Adverse Reaction to a Blood Tr: No Family Medical History Family Medial History: Cardiovascular disease 19 FATHER 19 MOTHER Diabetes mellitus 19 FATHER 19 MOTHER Hypercholesterolemia 19 FATHER 19 MOTHER Hypertension 19 FATHER 19 MOTHER Myocardial infarction 19 FATHER 19 MOTHER Physical Exam Vital Signs Vital Sign - Last 12Hours 07/10/17 12:30 Temp 96.0 Pulse 111 B/P (MAP) 166/107 (126) Pulse Ox 96 O2 Delivery Room Air Capillary Refill : Less Than 3 Seconds General Appearance: No Apparent Distress, WD/WN HEENT: PERRL/EOMI, TMs Normal Neck: Full Range of Motion, Normal Inspection Respiratory: No Accessory Muscle Use, No Respiratory Distress Cardiovascular: Regular Rate, Rhythm, Normal Peripheral Pulses Gastrointestinal: Normal Bowel Sounds, Non Tender, Soft Extremity: Normal Capillary Refill, Normal Inspection Neurologic/Psychiatric: Alert, Oriented x3, No Motor/Sensory Deficits Skin: Normal Color, Warm/Dry Progress/Results/Core Measures Results/Orders Lab Results Laboratory Tests Test 07/10/17 12:40 07/10/17 15:16 Range/Units White Blood Count 7.4 4.3-11.0 10^3/uL Red Blood Count 5.55 4.35-5.85 10^6/uL Hemoglobin 16.3 13.3-17.7 G/DL Hematocrit 49 40-54 % Mean Corpuscular Volume 88 80-99 FL Mean Corpuscular Hemoglobin 29 25-34 PG Mean Corpuscular Hemoglobin Concent 33 32-36 G/DL Red Cell Distribution Width 13.7 10.0-14.5 % Platelet Count 245 130-400 10^3/uL Mean Platelet Volume 10.2 7.4-10.4 FL Neutrophils (%) (Auto) 65 42-75 % Lymphocytes (%) (Auto) 25 12-44 % Monocytes (%) (Auto) 8 0-12 % Eosinophils (%) (Auto) 2 0-10 % Basophils (%) (Auto) 0 0-10 % Neutrophils # (Auto) 4.8 1.8-7.8 X 10^3 Lymphocytes # (Auto) 1.8 1.0-4.0 X 10^3 Monocytes # (Auto) 0.6 0.0-1.0 X 10^3 Eosinophils # (Auto) 0.2 0.0-0.3 10^3/uL Basophils # (Auto) 0.0 0.0-0.1 10^3/uL Prothrombin Time 13.2 12.2-14.7 SEC INR Comment 1.0 0.8-1.4 Activated Partial Thromboplast Time 29 24-35 SEC Sodium Level 137 135-145 MMOL/L Potassium Level 4.6 3.6-5.0 MMOL/L Chloride Level 98 98-107 MMOL/L Carbon Dioxide Level 26 21-32 MMOL/L Anion Gap 13 5-14 MMOL/L Blood Urea Nitrogen 22 H 7-18 MG/DL Creatinine 1.24 0.60-1.30 MG/DL Estimat Glomerular Filtration Rate 59 BUN/Creatinine Ratio 18 Glucose Level 284 H 70-105 MG/DL Calcium Level 10.1 8.5-10.1 MG/DL Magnesium Level 1.8 1.8-2.4 MG/DL Total Bilirubin 0.7 0.1-1.0 MG/DL Aspartate Amino Transf (AST/SGOT) 27 5-34 U/L Alanine Aminotransferase (ALT/SGPT) 31 0-55 U/L Alkaline Phosphatase 170 H 40-136 U/L Myoglobin 57.8 10.0-92.0 NG/ML Troponin I < 0.30 < 0.30 <0.30 NG/ML B-Type Natriuretic Peptide 402.9 H <100.0 PG/ML Total Protein 8.2 6.4-8.2 GM/DL Albumin 4.0 3.2-4.5 GM/DL My Orders Orders - DAVID SALCEDO APRN Cbc With Automated Diff (07/10/17 12:33) Magnesium (07/10/17 12:33) Chest 1 View, Ap/Pa Only (07/10/17 12:33) Ekg Tracing (07/10/17 12:33) Cardiac Profile 1 (07/10/17 12:33) Comprehensive Metabolic Panel (07/10/17 12:33) Myoglobin Serum (07/10/17 12:33) Protime With Inr (07/10/17 12:33) Partial Thromboplastin Time (07/10/17 12:33) O2 (07/10/17 12:33) Monitor-Rhythm Ecg Trace Only (07/10/17 12:33) Lipid Panel (07/11/17 06:00) Aspirin Chewable Tablet (Baby Aspirin Ch (07/10/17 12:45) Saline Lock/Iv-Start (07/10/17 12:33) BNP (07/10/17 12:33) Ns Iv 500 Ml (Sodium Chloride 0.9%) (07/10/17 13:15) Iohexol Injection (Omnipaque 350 Mg/Ml 1 (07/10/17 13:30) Ns (Ivpb) (Sodium Chloride 0.9% Ivpb Bag (07/10/17 13:30) Troponin I (07/10/17 15:04) Medications Given in ED Current Medications Medications Dose Ordered Sig/Brittany Route Start Time Stop Time Status Last Admin Dose Admin Aspirin 324 mg ONCE ONCE PO 1/15/18 12:45 07/10/17 12:46 DC 07/10/17 12:59 324 MG Vital Signs/I&O Vital Sign - Last 12Hours 07/10/17 07/10/17 12:30 12:59 Temp 96.0 96.0 Pulse 111 B/P (MAP) 166/107 (126) Pulse Ox 96 O2 Delivery Room Air Diagnostic Imaging Diagonstic Imaging: Xray Plain Films/CT/US/NM/MRI: chest Comments NAME: LONG YANEZ [facility] REC#: [id number] PT STATUS: REG ER : 1955 PHYSICIAN: DAVID SALCEDO APRN ADMIT DATE: 07/10/17/ER Draft Date of Exam:07/10/17 CHEST 1 VIEW, AP/PA ONLY INDICATION: Hypertension, left arm pain. FINDINGS: The heart size enlarged. There is some prominence of the central vascularity unchanged from prior. Calcified pleural plaques on the left unchanged. No effusion or pneumothorax. No edema. IMPRESSION: Stable chronic findings. Dictated on workstation # [id number] Dict: 07/10/17 1255 Trans: 07/10/17 1257 [facility] [id number] Interpreted by: COURTNEY SHAH Electronically signed by: [id number]=We will repeat a troponin at 4 PM and discharged to home if still negative. Departure Communication (Admissions) Communication/Consulting Patient is asking if the chronic right hip pain is any contribution to his elevated blood pressure at home. Currently is 130/95. I advised him that yes it may be. 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 He has a prescription for 45 hydrocodone 5/325 which she states is only refilled every 90 days so this is one tablet every other day and is not controlling his right hip pain. NSAIDs would be ill advised given his heart disease. I'll prescribe a short course of opiates to take on a more frequent basis. Progress Notes CONCLUSIONS: 1. Global hypokinesis of the left ventricle with an ejection fraction of 30%. 2. Moderate cardiomegaly. 3. No distinct evidence of significant myocardial ischemia or infarction. Job ID: [id number] DocumentID: [id number] Dictated Date: 02/14/2017 15:49:01 Fuel Yard Operator Date: 02/14/2017 19:28:08 Dictated By: LANCE TAIPA MD, MARCIA, FACP, FACC, [id number] <Dictated by LANCE TAPIA MD, MARCIA, VERONIKA, JIAN, FSCAI, CCDS> <Electronically signed by LANCE TAPIA MD, MARCIA, VERONIKA, FACGertrude, FSCYAMIL, CCDS> 02/15/17 1526 Impression Impression: Primary Impression: CHF (congestive heart failure) Additional Impression: Chronic right hip pain Disposition: HOME, SELF-CARE Condition: Stable Departure-Patient Inst. Decision time for Depature: 15:59 Referrals: NO,LOCAL PHYSICIAN (PCP/Family) Primary Care Physician Patient Instructions: NO INSTRUCTIONS GIVEN Add. Discharge Instructions: 1. follow-up with your physicians as scheduled preferably in 1-2 weeks 2. Return to ER for any worsening, chest pain or shortness of breath 3. Pain medication as directed for the hip. All discharge instructions reviewed with patient and/or family. Voiced understanding. Scripts Hydrocodone/Acetaminophen ([place] 5-325 Tablet) 1 Each Tablet 1 EACH PO Q6H Y for PAIN-SEVERE, #30 TAB Prov: DAVID SALCEDO APRN 07/10/17 DAVID SALCEDO APRN Jul 10, 2017 12:38
[2017-07-10] MEDS ORDERED: ASPIRIN 81 MG CHEW (CHILDREN'S ASA) PO ONE (12:45)
[2017-07-10 12:51] LABS: BASOPHILS % (AUTO) 0 % (0-10); EOSINOPHILS # (AUTO) 0.2 10^3/uL (0.0-0.3); EOSINOPHILS % (AUTO) 2 % (0-10); HEMATOCRIT 49 % (40-54); HEMOGLOBIN 16.3 G/DL (13.3-17.7); LYMPHOCYTES # (AUTO) 1.8 X 10^3 (1.0-4.0); LYMPHOCYTES % (AUTO) 25 % (12-44); MEAN CORPUSCULAR HEMOGLOBIN 29 PG (25-34); MEAN CORPUSCULAR HGB CONC 33 G/DL (32-36); MEAN CORPUSCULAR VOLUME 88 FL (80-99); MEAN PLATELET VOLUME 10.2 FL (7.4-10.4); MONOCYTES # (AUTO) 0.6 X 10^3 (0.0-1.0); MONOCYTES % (AUTO) 8 % (0-12); NEUTROPHILS # (AUTO) 4.8 X 10^3 (1.8-7.8); NEUTROPHILS % (AUTO) 65 % (42-75); PLATELET COUNT 245 10^3/uL (130-400); RED BLOOD COUNT 5.55 10^6/uL (4.35-5.85); RED CELL DISTRIBUTION WIDTH 13.7 % (10.0-14.5); WHITE BLOOD COUNT 7.4 10^3/uL (4.3-11.0)
--- NOTE | 2017-07-10 12:57 | Diagnostic Imaging Report ---
INDICATION: Hypertension, left arm pain. FINDINGS: The heart size enlarged. There is some prominence of the central vascularity unchanged from prior. Calcified pleural plaques on the left unchanged. No effusion or pneumothorax. No edema. IMPRESSION: Stable chronic findings. Dictated by: Dictated on workstation # [id number]
[2017-07-10 13:01] LABS: PROTHROMBIN TIME PATIENT 13.2 SEC (12.2-14.7)
[2017-07-10 13:12] LABS: ALANINE AMINOTRANSFERASE 31 U/L (0-55); ALKALINE PHOSPHATASE 170 U/L (40-136); BILIRUBIN,TOTAL 0.7 MG/DL (0.1-1.0); BUN/CREATININE RATIO 18; CALCIUM 10.1 MG/DL (8.5-10.1); CARBON DIOXIDE 26 MMOL/L (21-32); CHLORIDE 98 MMOL/L (98-107); CREATININE SERUM 1.24 MG/DL (0.60-1.30); GFR ESTIMATED 59; GLUCOSE 284 MG/DL (70-105); MAGNESIUM 1.8 MG/DL (1.8-2.4); POTASSIUM 4.6 MMOL/L (3.6-5.0); SODIUM 137 MMOL/L (135-145); TOTAL PROTEIN 8.2 GM/DL (6.4-8.2)
[2017-07-10] MEDS ORDERED: NS IV 500 ML 500 ML IV SCH (13:15)
[2017-07-10 13:19] LABS: MYOGLOBIN SERUM 57.8 NG/ML (10.0-92.0)
[2017-07-10] MEDS ORDERED: NS 100 ML (IVPB) BAG IV ONE (13:30)
[2017-07-10] MEDS ORDERED: IOHEXOL 350 MG/ML 150 ML (OMNIPAQUE 350) VIAL IV ONE (13:30)
[2017-07-10] MEDS ORDERED: HYDR-757 PO (16:00)
[2017-07-10 16:16] VITALS: BP 130/82
== END 2017-07-10 16:16 | disposition home or self-care (01) ==
LOC: EDUNIT# 12:15 → ER 12:17
DX: I50.9 Heart failure, unspecified (principal); G89.29 Other chronic pain; M25.551 Pain in right hip; K21.9 Gastro-esophageal reflux disease without esophagitis; J44.9 Chronic obstructive pulmonary disease, unspecified; G47.30 Sleep apnea, unspecified; I10 Essential (primary) hypertension; I25.2 Old myocardial infarction; Z87.891 Personal history of nicotine dependence; Z79.82 Long term (current) use of aspirin; Z87.81 Personal history of (healed) traumatic fracture; Z87.442 Personal history of urinary calculi; Z86.73 Personal history of transient ischemic attack (TIA), and cerebral infarction without residual deficits
CPT/HCPCS: 36415; 71045; 80053; 83735; 83874; 83880; 84484; 85025; 85610; 85730; 93005; 93041

== ENCOUNTER → 2017-08-25 | Outpatient (CLI) | payer MEDICARE, OTHER ==
[~2017-08-25] MED LIST changes: +HYDR-757 PO
[2017-08-25 11:57] LABS: BASOPHILS # (AUTO) 0.1 10^3/uL (0.0-0.1); BASOPHILS % (AUTO) 1 % (0-10); EOSINOPHILS # (AUTO) 0.2 10^3/uL (0.0-0.3); EOSINOPHILS % (AUTO) 3 % (0-10); HEMATOCRIT 47 % (40-54); HEMOGLOBIN 15.4 G/DL (13.3-17.7); LYMPHOCYTES # (AUTO) 1.8 X 10^3 (1.0-4.0); LYMPHOCYTES % (AUTO) 24 % (12-44); MEAN CORPUSCULAR HEMOGLOBIN 29 PG (25-34); MEAN CORPUSCULAR HGB CONC 33 G/DL (32-36); MEAN CORPUSCULAR VOLUME 89 FL (80-99); MEAN PLATELET VOLUME 10.4 FL (7.4-10.4); MONOCYTES # (AUTO) 0.6 X 10^3 (0.0-1.0); MONOCYTES % (AUTO) 8 % (0-12); NEUTROPHILS # (AUTO) 4.8 X 10^3 (1.8-7.8); NEUTROPHILS % (AUTO) 64 % (42-75); PLATELET COUNT 177 10^3/uL (130-400); RED BLOOD COUNT 5.23 10^6/uL (4.35-5.85); RED CELL DISTRIBUTION WIDTH 13.7 % (10.0-14.5); WHITE BLOOD COUNT 7.5 10^3/uL (4.3-11.0)
[2017-08-25 12:20] LABS: ALBUMIN 3.7 GM/DL (3.2-4.5); BILIRUBIN,TOTAL 0.6 MG/DL (0.1-1.0); CALCIUM 9.4 MG/DL (8.5-10.1); CREATININE SERUM 1.24 MG/DL (0.60-1.30); MAGNESIUM 1.6 MG/DL (1.8-2.4); POTASSIUM 4.9 MMOL/L (3.6-5.0); TOTAL PROTEIN 7.2 GM/DL (6.4-8.2)
== END ==
LOC: RAD 11:00
PROVIDERS: ATTEND Internal Medicine Cardiovascular Disease
DX: I42.0 Dilated cardiomyopathy (principal); E66.01 Morbid (severe) obesity due to excess calories; M79.89 Other specified soft tissue disorders; G47.33 Obstructive sleep apnea (adult) (pediatric); I73.9 Peripheral vascular disease, unspecified; I10 Essential (primary) hypertension; R06.02 Shortness of breath
CPT/HCPCS: 36415; 80053; 80061; 83735; 83880; 84443; 85025; 93923

== ENCOUNTER → 2017-10-20 | Outpatient (CLI) | payer OTHER | LOC: CARD 13:57 | PROVIDERS: ATTEND Internal Medicine Cardiovascular Disease | DX: I42.0 Dilated cardiomyopathy (principal); E66.01 Morbid (severe) obesity due to excess calories; M79.89 Other specified soft tissue disorders; G47.33 Obstructive sleep apnea (adult) (pediatric); R06.02 Shortness of breath; I73.9 Peripheral vascular disease, unspecified; I10 Essential (primary) hypertension | CPT/HCPCS: 93306 ==

== ENCOUNTER 2018-03-05 05:23 | Emergency (ER) | payer OTHER ==
[~2018-03-05] VITALS: Ht 188 cm; Wt 181.4 kg
[~2018-03-05 05:23] MED LIST changes: +BENA40TA5 PO; -BNZ40T PO; +HYDR-4226 PO; -HYDR-757 PO; -SPIR25TA3 PO; +SPIR25TA5 PO
[2018-03-05 05:54] LABS: BASOPHILS % (AUTO) 0 % (0-10); EOSINOPHILS # (AUTO) 0.2 10^3/uL (0.0-0.3); EOSINOPHILS % (AUTO) 2 % (0-10); HEMATOCRIT 40 % (40-54); HEMOGLOBIN 12.7 G/DL (13.3-17.7); LYMPHOCYTES % (AUTO) 26 % (12-44); MEAN CORPUSCULAR HEMOGLOBIN 30 PG (25-34); MEAN CORPUSCULAR HGB CONC 32 G/DL (32-36); MEAN CORPUSCULAR VOLUME 93 FL (80-99); MEAN PLATELET VOLUME 10.3 FL (7.4-10.4); MONOCYTES # (AUTO) 0.7 X 10^3 (0.0-1.0); MONOCYTES % (AUTO) 9 % (0-12); NEUTROPHILS # (AUTO) 4.8 X 10^3 (1.8-7.8); NEUTROPHILS % (AUTO) 62 % (42-75); PLATELET COUNT 241 10^3/uL (130-400); RED CELL DISTRIBUTION WIDTH 14.4 % (10.0-14.5); WHITE BLOOD COUNT 7.7 10^3/uL (4.3-11.0)
--- NOTE | 2018-03-05 06:09 | ED Respiratory ---
General Chief Complaint: Respiratory Problems Stated Complaint: SOA Nursing Triage Note: PT BROUGHT IN BY EMS WITH COMPLAINT OF SOA. PT STATES HE BECAME SHORT OF BREATH AFTER POSSIBLY SMELLING CIGAR SMOKE. PT HAS COPD AND USES INHALERS AT HOME. Source: patient, spouse Exam Limitations: no limitations History of Present Illness Date Seen by Provider: Mar 05, 2018 Time Seen by Provider: 05:45 Initial Comments The patient presents to the ER by EMS from his home where he was having difficulty breathing starting a couple hours ago. He has a history of congestive heart failure with an EF of the low of 20% and recovered to 50% per his latest echo. The patient also has a history of obstructive sleep apnea and COPD. He thinks he cut it with a cigar smoke and that causes breathing to get worse today. He has an albuterol inhaler that usually works for him and he took 2 puffs but he says it didn't really help so he took a third puff and still didn 't help. He also turned his oxygen concentrator up and was wearing his CPAP mask. He says he was working so hard to breathe that he and his called the ambulance and the EMS crew gave him a DuoNeb nebulizer. After the nebulizer he was able to cough up a large amount of phlegm and his breathing improved significantly. Patient states last several daysbhe has noticed increased water retention in his legs with some blistering of the skin and pain so he stopped his 80 mg Lasix daily to 160 mg a day for the last 3 days. He says he's been urinating about every 30 minutes he thinks is working. 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 Ayoub. He is not having any chest pain shortness of breath, fevers, chills. He says other than the last couple hours for the past several weeks he has felt as good as ever. EMS reports the patient had very adventitious lung sounds with wheezing and rhonchus prior to the breathing treatment and afterwards they said it pretty much cleared up. Allergies and Home Medications Allergies Coded Allergies: meperidine (Verified Allergy, Unknown, 02/12/17) Uncoded Allergies: iv contrast (Adverse Reaction, Intermediate, 07/10/17) Home Medications Aspirin 81 Mg Tablet.dr, 81 MG PO HS, (Reported) Benazepril HCl 40 Mg Tab, 20 MG PO DAILY, (Reported) TAKES 1/2 (40MG) TABLET Cyanocobalamin (Vitamin B-12) 1,000 Mcg Tablet, 1,000 MCG PO HS, (Reported) Furosemide 80 Mg Tablet, 80 MG PO DAILY 80 mg in the morning and 40 mg in the evening Prescribed by: MOLLY APPLE on 02/14/17 1608 Glipizide 10 Mg Tablet, 10 MG PO DAILY, (Reported) Hydrocodone/Acetaminophen 1 Each Tablet, 1 EACH PO Q6H PRN for PAIN-SEVERE Prescribed by: DAVID SALCEDO on 07/10/17 1600 Ipratropium/Albuterol Sulfate 3 Ml Ampul.neb, 3 ML IH Q4H PRN for SHORTNESS OF BREATH Prescribed by: BERKLEY NORIEGA on 03/05/18 0646 Levothyroxine Sodium 175 Mcg Tablet, 175 MCG PO DAILY, (Reported) Metoprolol Succinate 100 Mg Tab.er.24h, 100 MG PO DAILY, (Reported) Omeprazole 20 Mg Capsule.dr, 20 MG PO DAILY, (Reported) Potassium Chloride 20 Meq Tablet.er, 20 MEQ PO BID Prescribed by: MOLLY APPLE on 02/14/17 1608 Pravastatin Sodium 40 Mg Tablet, 40 MG PO HS, (Reported) Spironolactone 25 Mg Tablet, 25 MG PO 1200, (Reported) Topiramate 25 Mg Tablet, 25 MG PO HS, (Reported) Patient Home Medication List Home Medication List Reviewed: Yes Review of Systems Review of Systems Constitutional: No chills, No diaphoresis EENTM: No hearing loss, No blurred vision Respiratory: cough, phlegm, short of breath, wheezing Cardiovascular: No chest pain; edema; No palpitations Gastrointestinal: No abdominal pain, No constipation, No diarrhea, No nausea Genitourinary: No discharge, No dysuria Musculoskeletal: No back pain, No joint pain Skin: other (blisters) Past Tnxkvac-Wzzhmq-Cacwcs Hx Patient Social History Alcohol Use: Denies Use Recreational Drug Use: No Smoking Status: Former Smoker Type Used: Cigarettes Former Smoker, Quit: Feb 13, 1987 Recent Foreign Travel: No Contact w/Someone Who Travel: No Recent Infectious Disease Expo: No Recent Hopitalizations: No (FEB 2017) Immunizations Up To Date Date of Pneumonia Vaccine: Mar 29, 2017 Date of Influenza Vaccine: Mar 29, 2017 Seasonal Allergies Seasonal Allergies: No Past Medical History Surgeries: No (KNEE SURGERY, LEFT SHOULDER SURGERY, HERNIA REPAIR, GALLBLADDER OUT) Abdominal, Orthopedic Respiratory: Yes Sleep Apnea, COPD Currently Using CPAP: Yes Currently Using BIPAP: No Cardiac: Yes (CHF) Heart Attack, Hypertension Neurological: No (4 TIA'S, 1 STROKE ) Stroke, TIA Sexually Transmitted Disease: No HIV/AIDS: No Genitourinary: Yes Kidney Stones Gastrointestinal: Yes Gastroesophageal Reflux Musculoskeletal: Yes (HIP FX, TWO TORN ROTATOR CUFFS ) Degenerate Disk Disease, Arthritis, Chronic Back Pain, Fractures Endocrine: Yes Diabetes, Non-Insulin dep HEENT: Yes Cataract Cancer: No Psychosocial: No Integumentary: No Blood Disorders: No Adverse Reaction/Blood Tranf: No Family Medical History Cardiovascular disease 19 FATHER 19 MOTHER Diabetes mellitus 19 FATHER 19 MOTHER Hypercholesterolemia 19 FATHER 19 MOTHER Hypertension 19 FATHER 19 MOTHER Myocardial infarction 19 FATHER 19 MOTHER Physical Exam Vital Signs - First Documented 03/05/18 05:25 Temp 98.7 Pulse 80 Resp 16 B/P (MAP) 161/89 (113) Pulse Ox 99 O2 Delivery Room Air O2 Flow Rate 2.00 Capillary Refill : Less Than 3 Seconds Height: 6'2.00" Weight: 400lbs. 2.0oz. 181.792422jh; 58.7 BMI Method:Stated General Appearance: WD/WN, no apparent distress Eyes: Bilateral Eye Normal Inspection, Bilateral Eye PERRL, Bilateral Eye EOMI HEENT: PERRL/EOMI, normal ENT inspection, pharynx normal Neck: non-tender, full range of motion, normal inspection Respiratory: chest non-tender, no respiratory distress, no accessory muscle use , decreased breath sounds Cardiovascular: normal peripheral pulses, regular rate, rhythm Gastrointestinal: normal bowel sounds, non tender, soft Neurologic/Psychiatric: alert, oriented x 3 Skin: normal color, warm/dry, other (there are a few small clear fluid-filled bullae on the lower extremities consistent with his 3+ pitting edema) Progress/Results/Core Measures Suspected Sepsis Recent Fever Within 48 Hours: No Infection Criteria Present: None New/Unexplained Altered Menta: No Sepsis Screen: No Definite Risk SIRS Temperature:98.7 Pulse: 80 Respiratory Rate: 16 Laboratory Tests 03/05/18 05:48: White Blood Count 7.7 Blood Pressure 161 /89 Mean: 113 Laboratory Tests 03/05/18 05:48: Creatinine 1.25, Platelet Count 241, Total Bilirubin 0.8 Results/Orders Lab Results Laboratory Tests Test 03/05/18 05:48 Range/Units White Blood Count 7.7 4.3-11.0 10^3/uL Red Blood Count 4.30 L 4.35-5.85 10^6/uL Hemoglobin 12.7 L 13.3-17.7 G/DL Hematocrit 40 40-54 % Mean Corpuscular Volume 93 80-99 FL Mean Corpuscular Hemoglobin 30 25-34 PG Mean Corpuscular Hemoglobin Concent 32 32-36 G/DL Red Cell Distribution Width 14.4 10.0-14.5 % Platelet Count 241 130-400 10^3/uL Mean Platelet Volume 10.3 7.4-10.4 FL Neutrophils (%) (Auto) 62 42-75 % Lymphocytes (%) (Auto) 26 12-44 % Monocytes (%) (Auto) 9 0-12 % Eosinophils (%) (Auto) 2 0-10 % Basophils (%) (Auto) 0 0-10 % Neutrophils # (Auto) 4.8 1.8-7.8 X 10^3 Lymphocytes # (Auto) 2.0 1.0-4.0 X 10^3 Monocytes # (Auto) 0.7 0.0-1.0 X 10^3 Eosinophils # (Auto) 0.2 0.0-0.3 10^3/uL Basophils # (Auto) 0.0 0.0-0.1 10^3/uL Sodium Level 135 135-145 MMOL/L Potassium Level 4.5 3.6-5.0 MMOL/L Chloride Level 97 L 98-107 MMOL/L Carbon Dioxide Level 25 21-32 MMOL/L Anion Gap 13 5-14 MMOL/L Blood Urea Nitrogen 21 H 7-18 MG/DL Creatinine 1.25 0.60-1.30 MG/DL Estimat Glomerular Filtration Rate 58 BUN/Creatinine Ratio 17 Glucose Level 196 H 70-105 MG/DL Calcium Level 8.8 8.5-10.1 MG/DL Corrected Calcium 9.1 8.5-10.1 MG/DL Total Bilirubin 0.8 0.1-1.0 MG/DL Aspartate Amino Transf (AST/SGOT) 39 H 5-34 U/L Alanine Aminotransferase (ALT/SGPT) 39 0-55 U/L Alkaline Phosphatase 144 H 40-136 U/L B-Type Natriuretic Peptide 178.3 H <100.0 PG/ML Total Protein 7.2 6.4-8.2 GM/DL Albumin 3.6 3.2-4.5 GM/DL Vital Signs/I&O 03/05/18 05:25 Temp 98.7 Pulse 80 Resp 16 B/P (MAP) 161/89 (113) Pulse Ox 99 O2 Delivery Room Air O2 Flow Rate 2.00 Capillary Refill : Less Than 3 Seconds Blood Pressure Mean: 113 Progress Note #1: Time: 06:09 Progress Note Patient has an oxygen saturation on his baseline of 2 L/m at 98% on my examination. His lungs are diminished but don't hear any adventitious lung sounds. We'll get a chest x-ray and some labs to look for evidence of infection versus CHF exacerbation. If not this could just be an acute COPD exacerbation they responded to the nebulizer. Progress Note #2: Time: 06:25 Progress Note Blood work doesn't demonstrate any elevated white count nor is there any infiltrate on the chest x-ray. BNP is not elevated and his BUN is actually up a little which would be consistent with somebody who has been increasing there Lasix intake. This is likely just a COPD exacerbation as he described. Plan to provide him a nebulizer and some albuterol take home. Diagnostic Imaging Diagonstic Imaging: Xray Plain Films/CT/US/NM/MRI: chest (1v) Comments Stable Cardiomegaly with chronic mediastinum that is unchanged from previous x- ray in June 2017. Difficult see the pulmonary corners secondary to redundant tissue versus pulmonary edema. [facility] [place], [place] NAME: LONG YANEZ [facility] REC#: [id number] PT STATUS: REG ER : 1955 PHYSICIAN: TIMOTHY GUALLPA MD ADMIT DATE: 03/05/18/ER Draft Date of Exam:03/05/18 CHEST 1 VIEW, AP/PA ONLY CLINICAL INDICATION: Patient with shortness of air. EXAM: Portable chest x-ray upright view. COMPARISONS: Chest x-ray dated 07/10/2017. FINDINGS: Limited exam due to patient body habitus and portable projection. Lungs/pleura: Lungs are clear. There is no pneumothorax. There is no pleural effusion. Mediastinum: Unremarkable. Pulmonary vasculature: Unremarkable. Heart: There is cardiomegaly, stable. Bones/extrathoracic soft tissue: Unremarkable. IMPRESSION: Stable cardiomegaly. Otherwise, there is no radiographic evidence of acute cardiopulmonary process. Dictated on workstation # [id number] Dict: 03/05/1833 Trans: 03/05/18 0640 [id number] Interpreted by: RENZO GOULD MD Electronically signed by: Reviewed: Reviewed by Me Departure Impression Primary Impression: COPD with exacerbation Disposition: HOME, SELF-CARE Condition: Improved Departure-Patient Inst. Referrals: NO,LOCAL PHYSICIAN (PCP/Family) Primary Care Physician Patient Instructions: Exacerbation of COPD (DC) Add. Discharge Instructions: You have increased difficulty breathing you can use a nebulizer every 4 hours as needed. Follow-up with her primary care doctor in the next 1-2 weeks. Return to the nearest ER. Begin to have difficulty breathing that does not respond to your nebulizer. All discharge instructions reviewed with patient and/or family. Voiced understanding. Scripts Ipratropium/Albuterol Sulfate (Iprat-Albut 0.5-3(2.5) mg/3 ml) 3 Ml Ampul.neb 3 ML IH Q4H PRN for SHORTNESS OF BREATH for 30 Days, #60 EACH 0 Refills Prov: BERKLEY NORIEGA 03/05/18 Work/School Note: Family Work Note Patient Received Medical Care In the Emergency Department On: Mar 05, 2018 Patient Will Be Able to Return to Work/School On: Mar 05, 2018 Patient Restrictions: None. Departed 0800 BERKLEY NORIEGA Mar 05, 2018 06:09
[2018-03-05 06:11] LABS: ALBUMIN 3.6 GM/DL (3.2-4.5); BILIRUBIN,TOTAL 0.8 MG/DL (0.1-1.0); CALCIUM 8.8 MG/DL (8.5-10.1); CREATININE SERUM 1.25 MG/DL (0.60-1.30); POTASSIUM 4.5 MMOL/L (3.6-5.0); TOTAL PROTEIN 7.2 GM/DL (6.4-8.2)
--- NOTE | 2018-03-05 06:41 | Diagnostic Imaging Report ---
CLINICAL INDICATION: Patient with shortness of air. EXAM: Portable chest x-ray upright view. COMPARISONS: Chest x-ray dated 07/10/2017. FINDINGS: Limited exam due to patient body habitus and portable projection. Lungs/pleura: Lungs are clear. There is no pneumothorax. There is no pleural effusion. Mediastinum: Unremarkable. Pulmonary vasculature: Unremarkable. Heart: There is cardiomegaly, stable. Bones/extrathoracic soft tissue: Unremarkable. IMPRESSION: Stable cardiomegaly. Otherwise, there is no radiographic evidence of acute cardiopulmonary process. Dictated by: Dictated on workstation # [id number]
[2018-03-05] MEDS ORDERED: IPRA3AMP31 IH ×2 (06:46→11:08)
[2018-03-05] MEDS ORDERED: RX-ALBUTEROL NEB 2.5 MG/3 ML PACK #5 IH STA (06:49)
[2018-03-05 07:05] VITALS: BP 161/89
== END 2018-03-05 07:05 | disposition home or self-care (01) ==
LOC: EDUNIT# 05:23 → ER 05:24
DX: J44.1 Chronic obstructive pulmonary disease with (acute) exacerbation (principal); I42.9 Cardiomyopathy, unspecified; I11.0 Hypertensive heart disease with heart failure; I50.20 Unspecified systolic (congestive) heart failure; I25.2 Old myocardial infarction; G47.33 Obstructive sleep apnea (adult) (pediatric); K21.9 Gastro-esophageal reflux disease without esophagitis; E11.9 Type 2 diabetes mellitus without complications; F17.290 Nicotine dependence, other tobacco product, uncomplicated; Z82.49 Family history of ischemic heart disease and other diseases of the circulatory system; Z79.51 Long term (current) use of inhaled steroids; Z86.73 Personal history of transient ischemic attack (TIA), and cerebral infarction without residual deficits; Z87.442 Personal history of urinary calculi; Z79.82 Long term (current) use of aspirin; Z79.84 Long term (current) use of oral hypoglycemic drugs; Z88.8 Allergy status to other drugs, medicaments and biological substances; Z87.891 Personal history of nicotine dependence; Z87.19 Personal history of other diseases of the digestive system; Z91.048 Other nonmedicinal substance allergy status
CPT/HCPCS: 36415; 71045; 80053; 83880; 85025

== ENCOUNTER 2018-08-28 23:52 | Emergency (ER) | payer MEDICARE, OTHER ==
[~2018-08-28] VITALS: Ht 188 cm; Wt 190.5 kg
[~2018-08-28 23:52] MED LIST changes: +IPRA3AMP31 IH
[2018-08-29 00:45] LABS: BASOPHILS % (AUTO) 0 % (0-10); EOSINOPHILS # (AUTO) 0.2 10^3/uL (0.0-0.3); EOSINOPHILS % (AUTO) 3 % (0-10); HEMATOCRIT 44 % (40-54); HEMOGLOBIN 14.1 G/DL (13.3-17.7); LYMPHOCYTES # (AUTO) 1.9 X 10^3 (1.0-4.0); LYMPHOCYTES % (AUTO) 24 % (12-44); MEAN CORPUSCULAR HEMOGLOBIN 29 PG (25-34); MEAN CORPUSCULAR HGB CONC 32 G/DL (32-36); MEAN CORPUSCULAR VOLUME 91 FL (80-99); MEAN PLATELET VOLUME 10.3 FL (7.4-10.4); MONOCYTES # (AUTO) 0.8 X 10^3 (0.0-1.0); MONOCYTES % (AUTO) 10 % (0-12); NEUTROPHILS % (AUTO) 62 % (42-75); PLATELET COUNT 201 10^3/uL (130-400); RED CELL DISTRIBUTION WIDTH 13.9 % (10.0-14.5)
--- NOTE | 2018-08-29 00:56 | ED General ---
General Chief Complaint: Cardiac/General Problems Stated Complaint: HIGH BLOOD PRESSURE 195/109 Nursing Triage Note: high blood pressure, right arm tingling x2 hrs. improved /p taking home medications. Nursing Sepsis Screen: No Definite Risk Source of Information: Patient History of Present Illness Date Seen by Provider: Aug 28, 2018 Time Seen by Provider: 00:25 Initial Comments PT ARRIVES VIA POV FROM HOME C/O ELEVATED BP--WAS 222/115 AT HOME TONIGHT AROUND 2200 STATES HE WAS WATCHING TV, AND GOT UP TO GO TO THE BATHROOM, AND WAS LIGHTHEADED , HAD A HEADACHE AND HIS RIGHT ARM WAS A LITTLE NUMB/TINGLY, SO HE TOOK HIS BP AND IT WAS ELEVATED PT THEN TOOK AND EXTRA 1/2 METOPROLOL 200 MG SR AT 2200 NO CHEST PAIN NO SHORTNESS OF BREATH NO PALPITATIONS NO VISION CHANGES PT STATES HIS SYMPTOMS ARE GONE NOW AND HIS BP IS DOWN STATES IT IS NORMALLY IN THE 150'S/80'S NO CHANGES IN MEDICATIONS / DOSES PCP: [facility]: DR. TAPIA Allergies and Home Medications Allergies Coded Allergies: meperidine (Verified Allergy, Unknown, 02/12/17) Uncoded Allergies: iv contrast (Adverse Reaction, Intermediate, 07/10/17) Home Medications Aspirin 81 Mg Tablet., 81 MG PO HS, (Reported) Benazepril HCl 40 Mg Tab, 20 MG PO DAILY, (Reported) TAKES 1/2 (40MG) TABLET Cyanocobalamin (Vitamin B-12) 1,000 Mcg Tablet, 1,000 MCG PO HS, (Reported) Furosemide 80 Mg Tablet, 80 MG PO DAILY 80 mg in the morning and 40 mg in the evening Prescribed by: MOLLY APPLE on 02/14/17 1608 Glipizide 10 Mg Tablet, 10 MG PO DAILY, (Reported) Hydrocodone/Acetaminophen 1 Each Tablet, 1 EACH PO Q6H PRN for PAIN-SEVERE Prescribed by: DAVID SALCEDO on 07/10/17 1600 Ipratropium/Albuterol Sulfate 3 Ml Ampul.neb, 3 ML IH Q4H PRN for SHORTNESS OF BREATH Prescribed by: BERKLEY NORIEGA on 03/05/18 1108 Levothyroxine Sodium 175 Mcg Tablet, 175 MCG PO DAILY, (Reported) Metoprolol Succinate 100 Mg Tab.er.24h, 100 MG PO DAILY, (Reported) Omeprazole 20 Mg Capsule.dr, 20 MG PO DAILY, (Reported) Potassium Chloride 20 Meq Tablet.er, 20 MEQ PO BID Prescribed by: MOLLY APPLE on 02/14/17 1608 Pravastatin Sodium 40 Mg Tablet, 40 MG PO HS, (Reported) Spironolactone 25 Mg Tablet, 25 MG PO 1200, (Reported) Topiramate 25 Mg Tablet, 25 MG PO HS, (Reported) Patient Home Medication List Home Medication List Reviewed: Yes Review of Systems Review of Systems Constitutional: see HPI, dizziness EENTM: no symptoms reported; No blurred vision, No double vision Respiratory: no symptoms reported Cardiovascular: No chest pain; edema (CHRONIC/STABLE); No palpitations, No syncope Gastrointestinal: no symptoms reported Genitourinary: no symptoms reported Musculoskeletal: no symptoms reported Skin: no symptoms reported Psychiatric/Neurological: See HPI, Headache, Paresthesia; Denies Weakness Hematologic/Lymphatic: No Symptoms Reported Immunological/Allergic: no symptoms reported Past Obbzdfr-Yzordz-Dzdslo Hx Patient Social History Alcohol Use: Denies Use Recreational Drug Use: No Smoking Status: Former Smoker (QUIT IN ) Type Used: Cigarettes Former Smoker, Quit: Feb 13, 1987 2nd Hand Smoke Exposure: No Recent Foreign Travel: No Contact w/Someone Who Travel: No Recent Infectious Disease Expo: No Recent Hopitalizations: No Immunizations Up To Date Tetanus Booster (TDap): Unknown Date of Pneumonia Vaccine: Mar 29, 2017 Date of Influenza Vaccine: Mar 29, 2017 Seasonal Allergies Seasonal Allergies: No Past Medical History Surgeries: Yes (KNEE SURGERY, LEFT SHOULDER SURGERY, HERNIA REPAIR, GALLBLADDER OUT) Abdominal, Gallbladder, Orthopedic Respiratory: Yes (OBESITY-HYPOVENTILATION) Sleep Apnea, COPD Currently Using CPAP: Yes Currently Using BIPAP: No Cardiac: Yes (CHF) Cardiomyopathy, Chronic Edema/Swelling, Coronary Artery Disease, Heart Attack, High Cholesterol, Hypertension Neurological: Yes (4 TIA'S, 1 STROKE ) Neuropathy, Stroke, TIA Sexually Transmitted Disease: No HIV/AIDS: No Genitourinary: Yes Kidney Stones, Renal Failure Gastrointestinal: Yes Gastroesophageal Reflux Musculoskeletal: Yes (HIP FX, TWO TORN ROTATOR CUFFS; RIGHT HIP AND LOWER BACK PAIN ) Degenerate Disk Disease, Arthritis, Chronic Back Pain, Fractures Endocrine: Yes (MORBID OBESITY) Hypothyroidsim, Diabetes, Non-Insulin dep HEENT: Yes Cataract Cancer: No Psychosocial: No Integumentary: No Blood Disorders: No Adverse Reaction/Blood Tranf: No Family Medical History Cardiovascular disease 19 FATHER 19 MOTHER Diabetes mellitus 19 FATHER 19 MOTHER Hypercholesterolemia 19 FATHER 19 MOTHER Hypertension 19 FATHER 19 MOTHER Myocardial infarction 19 FATHER 19 MOTHER Physical Exam Vital Signs Vital Signs - First Documented 08/29/18 00:03 Temp 96.4 Pulse 84 Resp 18 B/P (MAP) 142/80 (100) Pulse Ox 96 O2 Delivery Room Air Capillary Refill : Less Than 3 Seconds Height, Weight, BMI Height: 6'2.00" Weight: 420lbs. 0oz. 190.855865ai; 58.7 BMI Method:Stated General Appearance: No Apparent Distress, Obese Neck: Normal Inspection Respiratory: Normal Breath Sounds, No Accessory Muscle Use, No Respiratory Distress Cardiovascular: Regular Rate, Rhythm, No Murmur Extremity: Normal Range of Motion, Other (3-4 + EDEMA ( DDIFFICULT TO DETERMINE DUE TO BODY HABITUS) WITH CHRONIC VENOUS STASIS CHANGES, AND SEVERE WOODY INDURATION) Neurologic/Psychiatric: Alert, Oriented x3, Normal Mood/Affect, head of sales II-XII Norm as Tested, Sensory Deficit (DECREASED SENSATION TO FEET) Skin: Normal Color, Warm/Dry Progress/Results/Core Measures Suspected Sepsis Recent Fever Within 48 Hours: No Infection Criteria Present: None New/Unexplained Altered Menta: No Sepsis Screen: No Definite Risk SIRS Temperature:96.4 Pulse: 84 Respiratory Rate: 18 Laboratory Tests 08/29/18 00:30: White Blood Count 8.0 Blood Pressure 142 /80 Mean: 100 Laboratory Tests 08/29/18 00:30: Creatinine 1.00, INR Comment 1.1, Platelet Count 201, Total Bilirubin 0.7 Results/Orders Lab Results Laboratory Tests Test 08/29/18 00:30 Range/Units White Blood Count 8.0 4.3-11.0 10^3/uL Red Blood Count 4.79 4.35-5.85 10^6/uL Hemoglobin 14.1 13.3-17.7 G/DL Hematocrit 44 40-54 % Mean Corpuscular Volume 91 80-99 FL Mean Corpuscular Hemoglobin 29 25-34 PG Mean Corpuscular Hemoglobin Concent 32 32-36 G/DL Red Cell Distribution Width 13.9 10.0-14.5 % Platelet Count 201 130-400 10^3/uL Mean Platelet Volume 10.3 7.4-10.4 FL Neutrophils (%) (Auto) 62 42-75 % Lymphocytes (%) (Auto) 24 12-44 % Monocytes (%) (Auto) 10 0-12 % Eosinophils (%) (Auto) 3 0-10 % Basophils (%) (Auto) 0 0-10 % Neutrophils # (Auto) 5.0 1.8-7.8 X 10^3 Lymphocytes # (Auto) 1.9 1.0-4.0 X 10^3 Monocytes # (Auto) 0.8 0.0-1.0 X 10^3 Eosinophils # (Auto) 0.2 0.0-0.3 10^3/uL Basophils # (Auto) 0.0 0.0-0.1 10^3/uL Prothrombin Time 14.2 12.2-14.7 SEC INR Comment 1.1 0.8-1.4 Activated Partial Thromboplast Time 35 24-35 SEC Sodium Level 138 135-145 MMOL/L Potassium Level 4.5 3.6-5.0 MMOL/L Chloride Level 104 98-107 MMOL/L Carbon Dioxide Level 24 21-32 MMOL/L Anion Gap 10 5-14 MMOL/L Blood Urea Nitrogen 18 7-18 MG/DL Creatinine 1.00 0.60-1.30 MG/DL Estimat Glomerular Filtration Rate > 60 BUN/Creatinine Ratio 18 Glucose Level 140 H 70-105 MG/DL Calcium Level 9.6 8.5-10.1 MG/DL Corrected Calcium 9.7 8.5-10.1 MG/DL Magnesium Level 1.9 1.8-2.4 MG/DL Total Bilirubin 0.7 0.1-1.0 MG/DL Aspartate Amino Transf (AST/SGOT) 32 5-34 U/L Alanine Aminotransferase (ALT/SGPT) 27 0-55 U/L Alkaline Phosphatase 151 H 40-136 U/L Total Protein 7.4 6.4-8.2 GM/DL Albumin 3.9 3.2-4.5 GM/DL My Orders Orders - BREANN WING DO Saline Lock/Iv-Start (08/29/18 00:25) Ekg Tracing (08/29/18 00:25) Monitor-Rhythm Ecg Trace Only (08/29/18 00:25) Cbc With Automated Diff (08/29/18 00:25) Comprehensive Metabolic Panel (08/29/18 00:25) Magnesium (08/29/18 00:25) Protime With Inr (08/29/18 00:25) Partial Thromboplastin Time (08/29/18 00:25) Vital Signs/I&O 08/29/18 08/29/18 00:03 01:30 Temp 96.4 96.9 Pulse 84 80 Resp 18 18 B/P (MAP) 142/80 (100) 145/72 (96) Pulse Ox 96 97 O2 Delivery Room Air Room Air Capillary Refill : Less Than 3 Seconds Blood Pressure Mean: 100 Progress Note : Progress Note BP 151/82 AT DISMISSAL PT ASYMPTOMATIC ECG Initial ECG Impression Date: Aug 29, 2018 Initial ECG Impression Time: 00:36 Initial ECG Rate: 85 Initial ECG Rhythm: Normal Sinus Departure Impression Primary Impression: Labile hypertension Disposition: HOME, SELF-CARE Condition: Improved Departure-Patient Inst. Referrals: LANCE TAPIA MD FACP FACC CCDS NO,LOCAL PHYSICIAN (PCP) Primary Care Physician Patient Instructions: Controlling Your Blood Pressure Through Lifestyle, DASH Diet, Heart Healthy Diet, High Blood Pressure (DC) Add. Discharge Instructions: CONTINUE YOUR MEDICATIONS PRESCRIBED FOLLOW UP WITH DR. TAPIA FOR FURTHER CARE REGARDING YOUR BLOOD PRESSURE RETURN TO ER IF SYMPTOMS WORSEN All discharge instructions reviewed with patient and/or family. Voiced understanding. BREANN WING DO Aug 29, 2018 00:56
[2018-08-29 01:00] LABS: INR 1.1 (0.8-1.4); PROTHROMBIN TIME PATIENT 14.2 SEC (12.2-14.7)
[2018-08-29 01:06] LABS: ALANINE AMINOTRANSFERASE 27 U/L (0-55); ALBUMIN 3.9 GM/DL (3.2-4.5); ALKALINE PHOSPHATASE 151 U/L (40-136); BILIRUBIN,TOTAL 0.7 MG/DL (0.1-1.0); BUN/CREATININE RATIO 18; CALCIUM 9.6 MG/DL (8.5-10.1); CARBON DIOXIDE 24 MMOL/L (21-32); CHLORIDE 104 MMOL/L (98-107); GFR ESTIMATED > 60; GLUCOSE 140 MG/DL (70-105); MAGNESIUM 1.9 MG/DL (1.8-2.4); POTASSIUM 4.5 MMOL/L (3.6-5.0); SODIUM 138 MMOL/L (135-145); TOTAL PROTEIN 7.4 GM/DL (6.4-8.2)
[2018-08-29 01:30] VITALS: BP 145/72
== END 2018-08-29 01:30 | disposition home or self-care (01) ==
LOC: EDUNIT# 23:52 → ER 23:56
DX: I11.0 Hypertensive heart disease with heart failure (principal); I50.9 Heart failure, unspecified; J44.9 Chronic obstructive pulmonary disease, unspecified; I42.9 Cardiomyopathy, unspecified; E66.01 Morbid (severe) obesity due to excess calories; G47.30 Sleep apnea, unspecified; I25.2 Old myocardial infarction; E78.00 Pure hypercholesterolemia, unspecified; Z87.442 Personal history of urinary calculi; Z86.73 Personal history of transient ischemic attack (TIA), and cerebral infarction without residual deficits; Z88.8 Allergy status to other drugs, medicaments and biological substances; Z91.041 Radiographic dye allergy status; Z82.49 Family history of ischemic heart disease and other diseases of the circulatory system; Z79.82 Long term (current) use of aspirin; Z79.4 Long term (current) use of insulin; Z87.891 Personal history of nicotine dependence; Z98.890 Other specified postprocedural states
CPT/HCPCS: 36415; 80053; 83735; 85025; 85610; 85730; 93005; 93041

== ENCOUNTER 2018-09-22 11:58 | Emergency (ER) | payer MEDICARE, OTHER ==
[~2018-09-22] VITALS: Ht 188 cm; Wt 193.2 kg
[2018-09-22 12:18] LABS: BASOPHILS % (AUTO) 0 % (0-10); EOSINOPHILS # (AUTO) 0.2 10^3/uL (0.0-0.3); EOSINOPHILS % (AUTO) 2 % (0-10); HEMATOCRIT 44 % (40-54); HEMOGLOBIN 14.3 G/DL (13.3-17.7); LYMPHOCYTES # (AUTO) 1.8 X 10^3 (1.0-4.0); LYMPHOCYTES % (AUTO) 22 % (12-44); MEAN CORPUSCULAR HEMOGLOBIN 29 PG (25-34); MEAN CORPUSCULAR HGB CONC 32 G/DL (32-36); MEAN CORPUSCULAR VOLUME 90 FL (80-99); MEAN PLATELET VOLUME 10.2 FL (7.4-10.4); MONOCYTES # (AUTO) 0.7 X 10^3 (0.0-1.0); MONOCYTES % (AUTO) 9 % (0-12); NEUTROPHILS # (AUTO) 5.5 X 10^3 (1.8-7.8); NEUTROPHILS % (AUTO) 67 % (42-75); PLATELET COUNT 229 10^3/uL (130-400); RED CELL DISTRIBUTION WIDTH 14.2 % (10.0-14.5); WHITE BLOOD COUNT 8.2 10^3/uL (4.3-11.0)
[2018-09-22 12:37] LABS: ALANINE AMINOTRANSFERASE 21 U/L (0-55); ALBUMIN 3.7 GM/DL (3.2-4.5); ALKALINE PHOSPHATASE 149 U/L (40-136); BILIRUBIN,TOTAL 0.7 MG/DL (0.1-1.0); BUN/CREATININE RATIO 11; CALCIUM 9.1 MG/DL (8.5-10.1); CARBON DIOXIDE 24 MMOL/L (21-32); CHLORIDE 103 MMOL/L (98-107); CREATINE KINASE 40 U/L (30-200); CREATININE SERUM 1.31 MG/DL (0.60-1.30); GFR ESTIMATED 55; GLUCOSE 228 MG/DL (70-105); MAGNESIUM 1.4 MG/DL (1.8-2.4); POTASSIUM 4.2 MMOL/L (3.6-5.0); SODIUM 138 MMOL/L (135-145); TOTAL PROTEIN 7.5 GM/DL (6.4-8.2)
[2018-09-22] MEDS: NITROGLYCERIN 0.4 MG SL TABS BTL 25'S SL PRN ×2 (12:39→13:00)
[2018-09-22 12:43] LABS: MYOGLOBIN SERUM 69.2 NG/ML (10.0-92.0)
[2018-09-22] MEDS ORDERED: RT-ALBUTEROL/IPRATROPIUM 3 ML (DUONEB) VIAL INH ONE (12:45)
--- NOTE | 2018-09-22 12:54 | Diagnostic Imaging Report ---
EXAMINATION: Chest radiograph, portable AP view. DATE: September 22, 2018 at 1235 hours. INDICATION: 63-year-old male, elevated blood pressure. Chest pain. COMPARISON: March 05, 2018. FINDINGS: Heart size and mediastinal contours are grossly unchanged. There is cardiomegaly. There is no identified pneumothorax. There is no large pleural effusion. There is no identified focal airspace consolidation. IMPRESSION: Cardiomegaly without identified acute cardiopulmonary abnormality. Dictated by: Dictated on workstation # [id number]
--- NOTE | 2018-09-22 13:03 | ED Chest Pain ---
General Chief Complaint: Chest Pain Stated Complaint: BP 185/95, CP X 3 DAYS Nursing Triage Note: TO ED PER W/C C/O ONSET OF CHEST PAIN TODAY YESTERDAY CONCERN BECAUSE HE HAS HAD PAIN IN HIS NECK. ALSO CONCERN ABOUT HIS B/P Nursing Sepsis Screen: No Definite Risk Source: patient, old records Exam Limitations: no limitations History of Present Illness Date Seen by Provider: Sep 22, 2018 Time Seen by Provider: 12:02 Initial Comments This 63-year-old gentleman presents to emergency room with 8 in the right chest. Pain initially started in the left neck last night. Then this morning when he woke up he had pain in the right chest. The pain is fairly mild rated as 2-3 out of 10. The pain in his left neck is characterized as sharp. The pain in his right chest is characterized as dull. He denies any alleviating or exacerbating factors. He does note that his blood pressure is rather high today at 191/100. He took 324 mg of aspirin at midnight. Patient is puffing with pursed lips when he exerts himself. Allergies and Home Medications Allergies Coded Allergies: meperidine (Verified Allergy, Unknown, 02/12/17) Uncoded Allergies: iv contrast (Adverse Reaction, Intermediate, 07/10/17) Home Medications Aspirin 81 Mg Tablet.dr, 81 MG PO HS, (Reported) Benazepril HCl 40 Mg Tab, 20 MG PO DAILY, (Reported) TAKES 1/2 (40MG) TABLET Cyanocobalamin (Vitamin B-12) 1,000 Mcg Tablet, 1,000 MCG PO HS, (Reported) Furosemide 80 Mg Tablet, 80 MG PO DAILY 80 mg in the morning and 40 mg in the evening Prescribed by: MOLLY APPLE on 02/14/17 1608 Glipizide 10 Mg Tablet, 10 MG PO DAILY, (Reported) Hydrocodone/Acetaminophen 1 Each Tablet, 1 EACH PO Q6H PRN for PAIN-SEVERE Prescribed by: DAVID SALCEDO on 07/10/17 1600 Ipratropium/Albuterol Sulfate 3 Ml Ampul.neb, 3 ML IH Q4H PRN for SHORTNESS OF BREATH Prescribed by: BERKLEY NORIEGA on 03/05/18 1108 Levothyroxine Sodium 175 Mcg Tablet, 175 MCG PO DAILY, (Reported) Magnesium Oxide 400 Mg Tablet, 400 MG PO BID Prescribed by: TIMOTHY CORDOVA on 09/22/18 1517 Metoprolol Succinate 100 Mg Tab.er.24h, 100 MG PO DAILY, (Reported) Omeprazole 20 Mg Capsule.dr, 20 MG PO DAILY, (Reported) Potassium Chloride 20 Meq Tablet.er, 20 MEQ PO BID Prescribed by: MOLLY APPLE on 02/14/17 1608 Pravastatin Sodium 40 Mg Tablet, 40 MG PO HS, (Reported) Spironolactone 25 Mg Tablet, 25 MG PO 1200, (Reported) Topiramate 25 Mg Tablet, 25 MG PO HS, (Reported) Patient Home Medication List Home Medication List Reviewed: Yes Review of Systems Review of Systems Constitutional: no symptoms reported EENTM: No Symptoms Reported Respiratory: See HPI Cardiovascular: See HPI Gastrointestinal: No Symptoms Reported Genitourinary: No Symptoms Reported Musculoskeletal: no symptoms reported Skin: no symptoms reported Psychiatric/Neurological: No Symptoms Reported Endocrine: No Symptoms Reported Hematologic/Lymphatic: No Symptoms Reported Past Lnmmhfe-Tagwuv-Ervasb Hx Past Med/Social Hx: Reviewed and Corrections made Patient Social History Alcohol Use: Denies Use Recreational Drug Use: No Smoking Status: Former Smoker Type Used: Cigarettes Former Smoker, Quit: Feb 13, 1987 2nd Hand Smoke Exposure: No Recent Foreign Travel: No Contact w/Someone Who Travel: No Recent Infectious Disease Expo: No Recent Hopitalizations: No Immunizations Up To Date Tetanus Booster (TDap): Unknown Date of Pneumonia Vaccine: Mar 29, 2017 Date of Influenza Vaccine: Mar 29, 2017 Seasonal Allergies Seasonal Allergies: No Past Medical History Surgeries: Yes (KNEE SURGERY, LEFT SHOULDER SURGERY, HERNIA REPAIR, GALLBLADDER OUT) Abdominal, Gallbladder, Orthopedic Respiratory: Yes (OBESITY-HYPOVENTILATION) Sleep Apnea, COPD Currently Using CPAP: Yes Currently Using BIPAP: No Cardiac: Yes (CHF) Cardiomyopathy, Chronic Edema/Swelling, Coronary Artery Disease, Heart Attack, High Cholesterol, Hypertension Neurological: Yes (4 TIA'S, 1 STROKE ) Neuropathy, Stroke, TIA Sexually Transmitted Disease: No HIV/AIDS: No Genitourinary: Yes Kidney Stones, Renal Failure Gastrointestinal: Yes Gastroesophageal Reflux Musculoskeletal: Yes (HIP FX, TWO TORN ROTATOR CUFFS; RIGHT HIP AND LOWER BACK PAIN ) Degenerate Disk Disease, Arthritis, Chronic Back Pain, Fractures Endocrine: Yes (MORBID OBESITY) Hypothyroidsim, Diabetes, Non-Insulin dep HEENT: Yes Cataract Cancer: No Psychosocial: No Integumentary: No Blood Disorders: No Adverse Reaction/Blood Tranf: No Family Medical History Cardiovascular disease 19 FATHER 19 MOTHER Diabetes mellitus 19 FATHER 19 MOTHER Hypercholesterolemia 19 FATHER 19 MOTHER Hypertension 19 FATHER 19 MOTHER Myocardial infarction 19 FATHER 19 MOTHER Physical Exam Vital Signs Vital Signs - First Documented 09/22/18 09/22/18 11:58 13:30 Temp 98.0 Pulse 82 Resp 18 B/P (MAP) 191/100 (130) Pulse Ox 94 O2 Delivery Room Air Capillary Refill : Less Than 3 Seconds Height, Weight, BMI Height: 6'2.00" Weight: 426lbs. 0oz. 193.628863qi; 58.7 BMI Method:Stated General Appearance: No Apparent Distress, WD/WN, Obese HEENT: PERRL/EOMI, Normal ENT Inspection Neck: Normal Inspection, Non Tender Respiratory: Lungs Clear, Normal Breath Sounds, No Accessory Muscle Use, No Respiratory Distress Cardiovascular: Regular Rate, Rhythm, No Edema, No Murmur Gastrointestinal: Normal Bowel Sounds, Non Tender, Soft, Other (obese) Extremity: Non Tender, Other (blanching erythema and firm pitting edema of the extremities bilaterally. Equal bilaterally. Stated as chronic and unchanged.) Neurologic/Psychiatric: Alert, Oriented x3, No Motor/Sensory Deficits, Normal Mood/Affect, schedule manager II-XII Norm as Tested Skin: Normal Color, Warm/Dry Progress/Results/Core Measures Results/Orders Lab Results Laboratory Tests Test 09/22/18 12:06 09/22/18 14:25 Range/Units White Blood Count 8.2 4.3-11.0 10^3/uL Red Blood Count 4.92 4.35-5.85 10^6/uL Hemoglobin 14.3 13.3-17.7 G/DL Hematocrit 44 40-54 % Mean Corpuscular Volume 90 80-99 FL Mean Corpuscular Hemoglobin 29 25-34 PG Mean Corpuscular Hemoglobin Concent 32 32-36 G/DL Red Cell Distribution Width 14.2 10.0-14.5 % Platelet Count 229 130-400 10^3/uL Mean Platelet Volume 10.2 7.4-10.4 FL Neutrophils (%) (Auto) 67 42-75 % Lymphocytes (%) (Auto) 22 12-44 % Monocytes (%) (Auto) 9 0-12 % Eosinophils (%) (Auto) 2 0-10 % Basophils (%) (Auto) 0 0-10 % Neutrophils # (Auto) 5.5 1.8-7.8 X 10^3 Lymphocytes # (Auto) 1.8 1.0-4.0 X 10^3 Monocytes # (Auto) 0.7 0.0-1.0 X 10^3 Eosinophils # (Auto) 0.2 0.0-0.3 10^3/uL Basophils # (Auto) 0.0 0.0-0.1 10^3/uL Prothrombin Time 14.0 12.2-14.7 SEC INR Comment 1.0 0.8-1.4 Activated Partial Thromboplast Time 38 H 24-35 SEC Sodium Level 138 135-145 MMOL/L Potassium Level 4.2 3.6-5.0 MMOL/L Chloride Level 103 98-107 MMOL/L Carbon Dioxide Level 24 21-32 MMOL/L Anion Gap 11 5-14 MMOL/L Blood Urea Nitrogen 14 7-18 MG/DL Creatinine 1.31 H 0.60-1.30 MG/DL Estimat Glomerular Filtration Rate 55 BUN/Creatinine Ratio 11 Glucose Level 228 H 70-105 MG/DL Calcium Level 9.1 8.5-10.1 MG/DL Corrected Calcium 9.3 8.5-10.1 MG/DL Magnesium Level 1.4 L 1.8-2.4 MG/DL Total Bilirubin 0.7 0.1-1.0 MG/DL Aspartate Amino Transf (AST/SGOT) 23 5-34 U/L Alanine Aminotransferase (ALT/SGPT) 21 0-55 U/L Alkaline Phosphatase 149 H 40-136 U/L Total Creatine Kinase 40 30-200 U/L Myoglobin 69.2 10.0-92.0 NG/ML Troponin I < 0.028 < 0.028 <0.028 NG/ML B-Type Natriuretic Peptide 540.6 H <100.0 PG/ML Total Protein 7.5 6.4-8.2 GM/DL Albumin 3.7 3.2-4.5 GM/DL Thyroid Stimulating Hormone (TSH) 8.17 H 0.35-4.94 UIU/ML Free Thyroxine 1.07 0.70-1.48 NG/DL My Orders Orders - TIMOTHY GUALLPA MD Ekg Tracing (09/22/18 12:00) Nitroglycerin 0.4 Mg Btl 25's (Nitrostat (09/22/18 12:30) Albuterol/Ipra Inhalation Soln (Duoneb I (09/22/18 12:45) Svn Small Volume Nebulizer (09/22/18 12:32) Thyroid Stimulating Hormone (09/22/18 13:31) Free T4 (Free Thyroxine) (09/22/18 13:31) Troponin I (09/22/18 13:59) Magnesium Oxide Tablet (Mag Ox Tablet) (09/22/18 14:45) Magnesium 1 Gm/100 Ml Ivpb (Magnesium Deras (09/22/18 14:45) Medications Given in ED Current Medications Medications Dose Ordered Sig/Brittany Route Start Time Stop Time Status Last Admin Dose Admin Albuterol/ Ipratropium 3 ml ONCE ONCE INH 09/22/18 12:45 09/22/18 12:46 DC 09/22/18 12:53 3 ML Magnesium Oxide 400 mg ONCE ONCE PO 09/22/18 14:45 09/22/18 14:46 DC 09/22/18 14:40 400 MG Magnesium Sulfate/ Dextrose 100 ml @ 100 mls/hr ONCE ONCE IV 09/22/18 14:45 09/22/18 15:44 09/22/18 14:40 100 MLS/HR Nitroglycerin 0.4 mg UD PRN SL 09/22/18 12:30 09/22/18 13:00 0.4 MG Vital Signs/I&O 09/22/18 09/22/18 09/22/18 11:58 12:53 13:30 Temp 98.0 Pulse 82 80 Resp 18 18 B/P (MAP) 191/100 (130) 139/82 (101) Pulse Ox 94 94 94 O2 Delivery Room Air Blood Pressure Mean: 130 Progress Progress Note : Progress Note Patient was seen and examined. He had mild chest pain on arrival. He was significantly hypertensive. He was given nitroglycerin 2. He was also given a nebulizer treatment. He had no pain after these interventions. Blood pressure improved to the systolic 130 range. A repeat troponin was unremarkable. Magnesium was replaced. Given the negative stress test in 2017, resolved pain and a negative repeat troponin, dismissal was felt appropriate. Case was discussed with Dr. Geronimo. Patient was advised to follow-up with Dr. Ayoub on Monday. A prescription for further magnesium oxide was provided. Initial ECG Impression Date: Sep 22, 2018 Initial ECG Impression Time: 12:02 Initial ECG Rate: 84 Initial ECG Rhythm: Normal Sinus Initial ECG Intervals: Normal Initial ECG Impression: Normal Comment Normal sinus rhythm with no ST elevation or depression. No significant abnormal intervals or axis deviation. Diagnostic Imaging Diagonstic Imaging: Xray Plain Films/CT/US/NM/MRI: chest Comments Chest x-ray viewed by me and report reviewed. See report below: NAME: LONG YANEZ [facility] REC#: [id number] PT STATUS: REG ER : 1955 PHYSICIAN: MANJINDER WARE ADMIT DATE: 09/22/18/ER Draft Date of Exam:09/22/18 CHEST 1 VIEW, AP/PA ONLY EXAMINATION: Chest radiograph, portable AP view. DATE: September 22, 2018 at 1235 hours. INDICATION: 63-year-old male, elevated blood pressure. Chest pain. COMPARISON: March 05, 2018. FINDINGS: Heart size and mediastinal contours are grossly unchanged. There is cardiomegaly. There is no identified pneumothorax. There is no large pleural effusion. There is no identified focal airspace consolidation. IMPRESSION: Cardiomegaly without identified acute cardiopulmonary abnormality. Dictated on workstation # [id number] Dict: 09/22/18 1248 Trans: 09/22/18 1253 [facility] [id number] Interpreted by: MARY CORENLL MD Departure Impression Primary Impression: Chest pain Qualified Codes: R07.9 - Chest pain, unspecified Additional Impressions: Hypertension Qualified Codes: I10 - Essential (primary) hypertension COPD exacerbation Hypomagnesemia Disposition: HOME, SELF-CARE Condition: Improved Departure-Patient Inst. Decision time for Depature: 15:12 Referrals: NO,LOCAL PHYSICIAN (PCP/Family) Primary Care Physician Patient Instructions: Chest Pain, High Blood Pressure in Adults Add. Discharge Instructions: Continue with your medications as previously prescribed. Use your nebulizer machine for chest tightness and shortness of breath. Return to the ER for discomfort or shortness of breath not relieved by nebulizer treatments. Follow-up with Dr. Ayoub on Monday morning for a medication review. Finish your magnesium supplement as prescribed. All discharge instructions reviewed with patient and/or family. Voiced understanding. Scripts Magnesium Oxide (Magnesium Oxide) 400 Mg Tablet 400 MG PO BID, #10 TAB Prov: TIMOTHY GUALLPA MD 09/22/18 Copy Copies To 1: LANCE AYOUB MD [facility] TIMOTHY GUALLPA MD Sep 22, 2018 13:03
[2018-09-22 13:30] VITALS: BP 139/82
[2018-09-22 14:10] LABS: FREE T4 (FREE THYROXINE) 1.07 NG/DL (0.70-1.48)
--- NOTE | 2018-09-22 14:25 | NUR ---
2ND TROPONIN VENESSA
[2018-09-22] MEDS ORDERED: MAGNESIUM 1 GM/100 ML IVPB 100 ML IV ONE (14:45)
[2018-09-22] MEDS ORDERED: MAGNESIUM OXIDE (MAG-OX)400 MG TAB PO ONE (14:45)
[2018-09-22] MEDS ORDERED: MAGN400T6 PO (15:17)
[2018-09-22 15:41] VITALS: BP 149/82
== END 2018-09-22 15:41 | disposition home or self-care (01) ==
LOC: EDUNIT# 11:58 → ER 11:59
DX: R07.9 Chest pain, unspecified (principal); J44.1 Chronic obstructive pulmonary disease with (acute) exacerbation; I11.0 Hypertensive heart disease with heart failure; I50.9 Heart failure, unspecified; E83.42 Hypomagnesemia; E66.09 Other obesity due to excess calories; G47.30 Sleep apnea, unspecified; K21.9 Gastro-esophageal reflux disease without esophagitis; E66.01 Morbid (severe) obesity due to excess calories; E11.40 Type 2 diabetes mellitus with diabetic neuropathy, unspecified; I25.10 Atherosclerotic heart disease of native coronary artery without angina pectoris; I25.2 Old myocardial infarction; E78.00 Pure hypercholesterolemia, unspecified; Z86.73 Personal history of transient ischemic attack (TIA), and cerebral infarction without residual deficits; Z87.442 Personal history of urinary calculi; Z82.49 Family history of ischemic heart disease and other diseases of the circulatory system; Z68.43 Body mass index [BMI] 50.0-59.9, adult; Z88.8 Allergy status to other drugs, medicaments and biological substances; Z91.041 Radiographic dye allergy status; Z79.82 Long term (current) use of aspirin; Z79.4 Long term (current) use of insulin; Z87.891 Personal history of nicotine dependence; Z98.890 Other specified postprocedural states
CPT/HCPCS: 36415; 71045; 80053; 82550; 83735; 83874; 83880; 84439; 84443; 84484; 85025; 85610; 85730; 93005; 93041; 94640; 96365

== ENCOUNTER 2018-10-27 | Inpatient (IN) | payer MEDICARE, OTHER ==
[~2018-10-27] VITALS: Ht 188 cm; Wt 203.3 kg
[2018-10-27] VITALS (7 sets, daily range): BP systolic 95–121; BP diastolic 52–60
[~2018-10-27] MED LIST changes: +MAGN400T6 PO
[2018-10-27] MEDS ORDERED: METF-397 PO (00:17)
[2018-10-27] MEDS ORDERED: GABA-486 PO ×2 (00:17→03:50)
[2018-10-27 00:30] LABS: BASOPHILS % (AUTO) 0 % (0-10); EOSINOPHILS % (AUTO) 0 % (0-10); HEMATOCRIT 44 % (40-54); HEMOGLOBIN 14.1 G/DL (13.3-17.7); LYMPHOCYTES # (AUTO) 0.8 X 10^3 (1.0-4.0); LYMPHOCYTES % (AUTO) 6 % (12-44); MEAN CORPUSCULAR HEMOGLOBIN 29 PG (25-34); MEAN CORPUSCULAR HGB CONC 32 G/DL (32-36); MEAN CORPUSCULAR VOLUME 90 FL (80-99); MEAN PLATELET VOLUME 11.1 FL (7.4-10.4); MONOCYTES # (AUTO) 0.8 X 10^3 (0.0-1.0); MONOCYTES % (AUTO) 6 % (0-12); NEUTROPHILS # (AUTO) 11.6 X 10^3 (1.8-7.8); NEUTROPHILS % (AUTO) 87 % (42-75); PLATELET COUNT 195 10^3/uL (130-400); RED CELL DISTRIBUTION WIDTH 14.4 % (10.0-14.5); WHITE BLOOD COUNT 13.2 10^3/uL (4.3-11.0)
[2018-10-27] MEDS ORDERED: PIPERACILLIN SODIUM/TAZOBACTAM 4.5 GM in NS (IVPB) 100 ML IV ONE (00:30)
[2018-10-27] MEDS ORDERED: VANCOMYCIN INJECTION 1,000 MG in NS (IVPB) 250 ML IV ONE (00:30)
[2018-10-27 00:34] LABS: INR 1.1 (0.8-1.4)
--- NOTE | 2018-10-27 00:43 | ED General ---
General Chief Complaint: Fever-Adult/Adol Stated Complaint: FEVER,RASH Nursing Triage Note: fever, rash to abdomen x3 days Nursing Sepsis Screen: Possible Sepsis Risk Source of Information: Patient History of Present Illness Date Seen by Provider: October 27, 2018 Time Seen by Provider: 00:07 Initial Comments PT ARRIVES VIA EMS FROM HOME PT STATES HE BEGAN RUNNING FEVER 6 DAYS AGO, BUT HAS BEEN UP TO 102.8 FOR THE LAST 3 DAYS 3 DAYS AGO, NOTICED REDNESS TO LOWER ABDOMEN, AND THE REDNESS HAS GRADUALLY MOVED HIGHER, AND REDNESS HAS DOUBLED IN SIZE SINCE YESTERDAY REDNESS IS NOT IN HIS GROIN/GENITAL AREA. NO PROBLEMS URINATING NO COUGH/CONGESTION, ETC. NO CHEST PAIN OR MORE SHORT OF BREATH THAN NORMAL + NAUSEA, NO VOMITING DENIES ABDOMINAL PAIN PT IS DIABETIC NO HISTORY OF SIMILAR PCP:[facility] IN [place] [employer] EDIT[employer]NSH[employer]: DR. TAPIA Allergies and Home Medications Allergies Coded Allergies: meperidine (Verified Allergy, Unknown, 02/12/17) Uncoded Allergies: iv contrast (Adverse Reaction, Intermediate, 07/10/17) Home Medications Aspirin 81 Mg Tablet.dr, 81 MG PO HS, (Reported) Benazepril HCl 40 Mg Tab, 20 MG PO DAILY, (Reported) TAKES 1/2 (40MG) TABLET Cyanocobalamin (Vitamin B-12) 1,000 Mcg Tablet, 1,000 MCG PO HS, (Reported) Furosemide 80 Mg Tablet, 80 MG PO DAILY 80 mg in the morning and 40 mg in the evening Prescribed by: MOLLY APPLE on 02/14/17 1608 Gabapentin 100 Mg Capsule, 100 MG PO Q8H, (Reported) Hydrocodone/Acetaminophen 1 Each Tablet, 1 EACH PO Q6H PRN for PAIN-SEVERE Prescribed by: DAVID SALCEDO on 07/10/17 1600 Levothyroxine Sodium 175 Mcg Tablet, 175 MCG PO DAILY, (Reported) Metoprolol Succinate 100 Mg Tab.er.24h, 100 MG PO DAILY, (Reported) Omeprazole 20 Mg Capsule.dr, 20 MG PO DAILY, (Reported) Potassium Chloride 20 Meq Tablet.er, 20 MEQ PO BID Prescribed by: MOLLY APPLE on 02/14/17 1608 Pravastatin Sodium 40 Mg Tablet, 40 MG PO HS, (Reported) Spironolactone 25 Mg Tablet, 25 MG PO 1200, (Reported) Topiramate 25 Mg Tablet, 25 MG PO HS, (Reported) Patient Home Medication List Home Medication List Reviewed: Yes Review of Systems Review of Systems Constitutional: see HPI, fever Respiratory: No cough; short of breath (CHRONIC SHORTNESS OF BREATH, NO DIFFERNT THAN NORMAL) Cardiovascular: No chest pain; edema (CHRONIC/STABLE) Gastrointestinal: see HPI, nausea; No vomiting Genitourinary: no symptoms reported Musculoskeletal: no symptoms reported Skin: see HPI Psychiatric/Neurological: No Symptoms Reported Hematologic/Lymphatic: No Symptoms Reported Immunological/Allergic: no symptoms reported Past Qzsamgm-Ykreif-Izawsp Hx Patient Social History Alcohol Use: Denies Use Recreational Drug Use: No Smoking Status: Former Smoker (1 PPD, QUIT ) Type Used: Cigarettes Former Smoker, Quit: Feb 13, 1987 2nd Hand Smoke Exposure: No Recent Foreign Travel: No Contact w/Someone Who Travel: No Recent Infectious Disease Expo: No Recent Hopitalizations: No Immunizations Up To Date Tetanus Booster (TDap): Unknown Date of Pneumonia Vaccine: Mar 29, 2017 Date of Influenza Vaccine: Mar 29, 2017 Seasonal Allergies Seasonal Allergies: No Past Medical History Surgeries: Yes (KNEE SURGERY, LEFT SHOULDER SURGERY, HERNIA REPAIR, ) Abdominal, Gallbladder, Orthopedic Respiratory: Yes (OBESITY-HYPOVENTILATION) Sleep Apnea, COPD Currently Using CPAP: Yes Currently Using BIPAP: No Cardiac: Yes (CHF) Cardiomyopathy, Chronic Edema/Swelling, Coronary Artery Disease, Heart Attack, High Cholesterol, Hypertension Neurological: Yes (TIA'S X 4; STROKE X 1) Neuropathy, Stroke, TIA Sexually Transmitted Disease: No HIV/AIDS: No Genitourinary: Yes Kidney Stones, Renal Failure Gastrointestinal: Yes Gastroesophageal Reflux Musculoskeletal: Yes (HIP FX; 2 TORN ROTATOR CUFFS; RIGHT HIP AND LOWER BACK PAIN ) Degenerate Disk Disease, Arthritis, Chronic Back Pain, Fractures Endocrine: Yes (MORBID OBESITY) Hypothyroidsim, Diabetes, Non-Insulin dep HEENT: Yes Cataract Cancer: No Psychosocial: No Integumentary: No Blood Disorders: No Adverse Reaction/Blood Tranf: No Family Medical History Cardiovascular disease 19 FATHER 19 MOTHER Diabetes mellitus 19 FATHER 19 MOTHER Hypercholesterolemia 19 FATHER 19 MOTHER Hypertension 19 FATHER 19 MOTHER Myocardial infarction 19 FATHER 19 MOTHER Physical Exam Vital Signs Vital Signs - First Documented 10/27/18 00:00 Temp 101.3 Pulse 96 Resp 14 B/P (MAP) 132/87 (102) Pulse Ox 94 O2 Delivery Room Air Capillary Refill : Less Than 3 Seconds Height, Weight, BMI Height: 6'2.00" Weight: 442lbs. 0oz. 200.041527rw; 58.7 BMI Method:Stated General Appearance: No Apparent Distress, Obese (MORBIDLY OBESE; ), Other ( DIRTY, MALODOROUS; TALKATIVE. DOES NOT APPEAR TO BE IN ANY DISCOMFORT OR DISTRESS WHILE AT REST. MOANS AND WAILS WITH ANY MOVEMENT DUE TO CHRONIC BACK PAIN COMPLAINT) Respiratory: Normal Breath Sounds, Decreased Breath Sounds (IN BASES), Other ( DYSPNEIC WITH MINIMAL EXERTION, SUCH CHANGING POSITION IN BED. PT STATES IS NORMAL) Cardiovascular: No Murmur, Tachycardia Gastrointestinal: Other (MASSIVE ERYTHEMA, INDURATION, AND SLIGHT SWELLING TO LOWER HALF OF ABDOMEN. DOES NOT EXTEND TO GENITAL AREA. NO DISCRETE OPEN WOUNDS , NO OBVIOUS ABSCESS. NO DRAINAGE. EXTENSIVE CHRONIC APPEARING SKIN CHANGES TO LOWER ASPECT OF PANNUS. ) Genital/Rectal: Other (GENITAL AREA WITH GENERAL NORMAL APPEARANCE. NO SWELLING OR ERYTHEMA OR EVIDENCE OF INFECTION. NO SORES/OPEN WOUNDS, ETC. ) Extremity: Other (EDEMA--APPEARS TO BE 3+, BUT IS VERY DIFFICULT TO DETERMINE DUE TO BODY HABITUS. EXTENSIVE CHRONIC VENOUS STASIS CHANGES BILATERAL LOWER LEGS, WITH MILD ERYTHEMA AND SIGNIFICANT WOODY INDURATION. HAS SCABBED WOUND TO ANTERIOR ASPECT OF RIGHT LOWER LEG, NO DRAINAGE, NO FLUCTUANCE, NO STREAKS. BILATERAL FEET DUSKY AND COOL, BUT ARE EQUAL. UNABLE TO PALPATE PULSES DUE TO BODY HABITUS. ) Neurologic/Psychiatric: Alert, Oriented x3, Normal Mood/Affect, parts manager II-XII Norm as Tested, Other (DECREASED SENSATION TO FEET BILATERALLY) Skin: Other (SKIN CHANGES NOTED ABOVE; ) Focused Exam Lactate Level 10/27/18 00:02: Lactic Acid Level 2.81*H Lactic Acid Level Laboratory Tests Test 10/27/18 00:02 Lactic Acid Level 2.81 MMOL/L (0.50-2.00) *H Progress/Results/Core Measures Suspected Sepsis Recent Fever Within 48 Hours: Yes Infection Criteria Present: Suspected New Infection New/Unexplained Altered Menta: No Sepsis Screen: Possible Sepsis Risk SIRS Temperature:101.3 Pulse: 96 Respiratory Rate: 14 Laboratory Tests 10/27/18 00:02: White Blood Count 13.2H Blood Pressure 132 /87 Mean: 102 10/27/18 00:02: Lactic Acid Level 2.81*H Laboratory Tests 10/27/18 00:02: Creatinine 1.62H, INR Comment 1.1, Platelet Count 195, Total Bilirubin 1.1H Results/Orders Lab Results Laboratory Tests Test 10/27/18 00:02 Range/Units White Blood Count 13.2 H 4.3-11.0 10^3/uL Red Blood Count 4.92 4.35-5.85 10^6/uL Hemoglobin 14.1 13.3-17.7 G/DL Hematocrit 44 40-54 % Mean Corpuscular Volume 90 80-99 FL Mean Corpuscular Hemoglobin 29 25-34 PG Mean Corpuscular Hemoglobin Concent 32 32-36 G/DL Red Cell Distribution Width 14.4 10.0-14.5 % Platelet Count 195 130-400 10^3/uL Mean Platelet Volume 11.1 H 7.4-10.4 FL Neutrophils (%) (Auto) 87 H 42-75 % Lymphocytes (%) (Auto) 6 L 12-44 % Monocytes (%) (Auto) 6 0-12 % Eosinophils (%) (Auto) 0 0-10 % Basophils (%) (Auto) 0 0-10 % Neutrophils # (Auto) 11.6 H 1.8-7.8 X 10^3 Lymphocytes # (Auto) 0.8 L 1.0-4.0 X 10^3 Monocytes # (Auto) 0.8 0.0-1.0 X 10^3 Eosinophils # (Auto) 0.0 0.0-0.3 10^3/uL Basophils # (Auto) 0.0 0.0-0.1 10^3/uL Prothrombin Time 15.0 H 12.2-14.7 SEC INR Comment 1.1 0.8-1.4 Activated Partial Thromboplast Time 40 H 24-35 SEC Sodium Level 133 L 135-145 MMOL/L Potassium Level 3.8 3.6-5.0 MMOL/L Chloride Level 97 L 98-107 MMOL/L Carbon Dioxide Level 22 21-32 MMOL/L Anion Gap 14 5-14 MMOL/L Blood Urea Nitrogen 24 H 7-18 MG/DL Creatinine 1.62 H 0.60-1.30 MG/DL Estimat Glomerular Filtration Rate 43 BUN/Creatinine Ratio 15 Glucose Level 328 H 70-105 MG/DL Lactic Acid Level 2.81 *H 0.50-2.00 MMOL/L Calcium Level 9.3 8.5-10.1 MG/DL Corrected Calcium 9.6 8.5-10.1 MG/DL Magnesium Level 1.7 L 1.8-2.4 MG/DL Total Bilirubin 1.1 H 0.1-1.0 MG/DL Aspartate Amino Transf (AST/SGOT) 42 H 5-34 U/L Alanine Aminotransferase (ALT/SGPT) 37 0-55 U/L Alkaline Phosphatase 213 H 40-136 U/L Total Protein 8.0 6.4-8.2 GM/DL Albumin 3.6 3.2-4.5 GM/DL Amylase Level 26 25-125 U/L Lipase 45 8-78 U/L My Orders Orders - BREANN WING DO Ed Iv/Invasive Line Start (10/27/18:18) Monitor-Rhythm Ecg Trace Only (10/27/18:18) Chest 1 View, Ap/Pa Only (10/27/18:18) Amylase (10/27/18:18) Cbc With Automated Diff (10/27/18:18) Comprehensive Metabolic Panel (10/27/18:18) Lactic Acid Analyzer (10/27/18:18) Lipase (10/27/18:18) Magnesium (10/27/18:18) Protime With Inr (10/27/18:18) Partial Thromboplastin Time (10/27/18:18) Ua Culture If Indicated (10/27/18:18) Blood Culture (10/27/18:18) Urine Culture (10/27/18:18) Ed Iv/Invasive Line Start (10/27/18:18) Ed Iv/Invasive Line Start (10/27/18:18) Ekg Tracing (10/27/18:18) Vital Signs Adult Sepsis Patie Q15M (10/27/18:18) O2 (10/27/18:18) Remove Rings In Anticipation O (10/27/18:18) Piperacillin Sodium/Tazobactam (Zosyn Vi (10/27/18 00:30) Vancomycin Injection (Vancomycin Injecti (10/27/18 00:30) Acetaminophen Tablet (Tylenol Tablet) (10/27/18 00:45) Ibuprofen Tablet (Motrin Tablet) (10/27/18 00:45) Insulin (Regular) Human (Humulin R (Per (10/27/18 01:15) Ed Iv/Invasive Line Start (10/27/18 01:12) Ns Iv 1000 Ml (Sodium Chloride 0.9%) (10/27/18 01:12) Medications Given in ED Current Medications Medications Dose Ordered Sig/Brittany Route Start Time Stop Time Status Last Admin Dose Admin Acetaminophen 1,000 mg ONCE ONCE PO 10/27/18 00:45 10/27/18 00:46 UNV 10/27/18 00:59 1,000 MG Ibuprofen 800 mg ONCE ONCE PO 10/27/18 00:45 10/27/18 00:46 UNV 10/27/18 00:59 800 MG Piperacillin Sod/ Tazobactam Sod 4.5 gm/Sodium Chloride 100 ml @ 200 mls/hr ONCE ONCE IV 10/27/18 00:30 10/27/18 00:59 DC 10/27/18 00:59 200 MLS/HR Vital Signs/I&O 10/27/18 10/27/18 10/27/18 00:00 00:00 00:59 Temp 101.3 101.3 Pulse 96 Resp 14 B/P (MAP) 132/87 (102) Pulse Ox 94 94 O2 Delivery Room Air Room Air Capillary Refill : Less Than 3 Seconds Blood Pressure Mean: 102 Progress Note : Progress Note EVENTFUL ER STAY BLOOD PRESSURE REMAINED STABLE HEART RATE DOWN TO 90'S WITH DECREASE IN TEMP AND WITH FLUIDS NO DETERIORATION IN PT'S CONDITION DURING ER STAY ECG Initial ECG Impression Date: October 27, 2018 Initial ECG Impression Time: 01:08 Initial ECG Rate: 97 Initial ECG Rhythm: Normal Sinus Initial ECG Impression: Nonspecific Changes Initial ECG Comparisson: Unchanged Diagnostic Imaging Comments CXR--CARDIOMEGALY, NO ACUTE PROCESS, PENDING RADIOLOGIST REVIEW Reviewed: Reviewed by Me Departure Communication (Admissions) [id number]--SPOKE WITH DR. BUENROSTRO, HOSPITALIST. ACCEPTS PT FOR ADMIT Impression Primary Impression: Abdominal wall cellulitis Additional Impressions: Panniculitis Sepsis Uncontrolled diabetes mellitus Morbid obesity Electrolyte imbalance Chronic back pain Disposition: ADMITTED INPATIENT Condition: Improved Admissions Decision to Admit Reason: Admit from ER (General) Decision to Admit/Date: October 27, 2018 Time/Decision to Admit Time: 01:10 Departure-Patient Inst. Referrals: NO,LOCAL PHYSICIAN (PCP) Primary Care Physician Work/School Note: Local Medical Staff Listing BREANN WING DO October 27, 2018 00:43
[2018-10-27 00:45] LABS: ALBUMIN 3.6 GM/DL (3.2-4.5); BILIRUBIN,TOTAL 1.1 MG/DL (0.1-1.0); CALCIUM 9.3 MG/DL (8.5-10.1); CREATININE SERUM 1.62 MG/DL (0.60-1.30); MAGNESIUM 1.7 MG/DL (1.8-2.4); POTASSIUM 3.8 MMOL/L (3.6-5.0)
[2018-10-27] MEDS ORDERED: ACETAMINOPHEN 500 MG TAB (TYLENOL) PO ONE (00:45)
[2018-10-27] MEDS ORDERED: IBUPROFEN 800 MG (MOTRIN) TAB PO ONE (00:45)
[2018-10-27] MEDS ORDERED: NS IV 1000 ML 1,000 ML IV ONE (01:12)
[2018-10-27] MEDS ORDERED: inSUlin (REGULAR) HUMAN 1 UNIT/0.01 ML (CHARGE PER UNIT) SC ONE (01:15)
--- NOTE | 2018-10-27 02:00 | NUR ---
LONG YANEZ admitted to room 429-1, with an admitting diagnosis of ABD WALL CELLULITIS/PANNICULITIS, SEPSIS, NIDDM , on 10/27/18 from ED via , accompanied by STAFF. LONG YANEZ introduced to surroundings, call light, bed controls, phone, TV, temperature control, lights, meal times, smoking policy, visitor policy, side rail policy, bathrooms and showers. Patient Rights given to patient in the handbook.LONG YANEZ verbalizes understanding that [facility] is not responsible for the loss or damage to any personal effects or valuables that are kept in the patients posession during their hospitalization.
[2018-10-27 02:29] LABS: CLARITY,URINE SLIGHTLY CLOUDY; COLOR,URINE YELLOW; GLUCOSE, URINE (UA) 3+ (NEGATIVE); KETONES,URINE 1+ (NEGATIVE); LEUKOCYTE ESTERASE ,URINE 1+ (NEGATIVE); NITRITE,URINE NEGATIVE (NEGATIVE); PH,URINE 5 (5-9); PROTEIN,URINE 3+ (NEGATIVE); UROBILINOGEN,URINE 1 MG/DL (NORMAL)
[2018-10-27 02:40] LABS: AMORPHOUS SEDIMENT,UR MOD AMOR URATES /LPF; BACTERIA,URINE MODERATE /HPF; BILIRUBIN,URINE 1+ (NEGATIVE); RBC,URINE 0-2 /HPF
[2018-10-27] MEDS ORDERED: VANCOMYCIN 1 GM/NS 250 ML IVPB IV SCH ×2 (03:30)
[2018-10-27] MEDS ORDERED: IBUPROFEN 800 MG (MOTRIN) TAB PO PRN (03:30)
[2018-10-27] MEDS: NS IV 1000 ML 1,000 ML IV SCH ×6 (03:31→19:51)
[2018-10-27] MEDS ORDERED: ACHD5005 PO (03:42)
[2018-10-27] MEDS ORDERED: LEVO300T5 PO (03:46)
[2018-10-27] MEDS ORDERED: TOPI50TA13 PO (03:50)
[2018-10-27] MEDS ORDERED: POTA20TA15 PO (03:57)
[2018-10-27] MEDS ORDERED: METO200T48 PO (03:59)
[2018-10-27] MEDS ORDERED: FURO-124 PO (04:09)
[2018-10-27] MEDS ORDERED: PIPERACILLIN/TAZO 4.5 GM VIAL (ZOSYN) IV ONE (04:48)
[2018-10-27] MEDS ORDERED: NS (IVPB) 100 ML ONE (04:48)
[2018-10-27] MEDS: PIPERACILLIN/TAZO 4.5 GM/NS 100 ML IV SCH ×6 (05:24→21:06)
[2018-10-27 05:36] LABS: BASOPHILS # (AUTO) 0.1 10^3/uL (0.0-0.1); BASOPHILS % (AUTO) 0 % (0-10); EOSINOPHILS % (AUTO) 0 % (0-10); HEMATOCRIT 43 % (40-54); HEMOGLOBIN 13.6 G/DL (13.3-17.7); LYMPHOCYTES # (AUTO) 1.3 X 10^3 (1.0-4.0); LYMPHOCYTES % (AUTO) 9 % (12-44); MEAN CORPUSCULAR HEMOGLOBIN 29 PG (25-34); MEAN CORPUSCULAR HGB CONC 32 G/DL (32-36); MEAN CORPUSCULAR VOLUME 90 FL (80-99); MEAN PLATELET VOLUME 10.9 FL (7.4-10.4); MONOCYTES # (AUTO) 0.9 X 10^3 (0.0-1.0); MONOCYTES % (AUTO) 6 % (0-12); NEUTROPHILS # (AUTO) 12.7 X 10^3 (1.8-7.8); NEUTROPHILS % (AUTO) 85 % (42-75); PLATELET COUNT 180 10^3/uL (130-400); RED CELL DISTRIBUTION WIDTH 14.3 % (10.0-14.5)
[2018-10-27 05:54] LABS: ALBUMIN 3.2 GM/DL (3.2-4.5); CALCIUM 8.7 MG/DL (8.5-10.1); CREATININE SERUM 1.75 MG/DL (0.60-1.30); TOTAL PROTEIN 6.8 GM/DL (6.4-8.2)
[2018-10-27 05:55] LABS: BAND NEUTROPHILS 8 %; LYMPHOCYTES % (MANUAL) 7 %; MONOCYTES % (MANUAL) 6 %; NEUTROPHILS % (MANUAL) 79 %; RBC MORPH NORMAL
--- NOTE | 2018-10-27 06:52 | NUR ---
Vancomycin - using adjusted bodywt to calculate CrCl = 75ml/min. Will start Vancomycin 1250mg every 8 hours. Will obtain trough prior to 4th dose of 1250mg.
[2018-10-27] MEDS: inSUlin ASPART (NovoLOG) 1 UNIT/0.01 ML (CHARGE PER UNIT) SC SCH ×4 (07:00→21:05)
--- NOTE | 2018-10-27 07:50 | Diagnostic Imaging Report ---
Indication: Fever. Time of exam: 12:50 AM Correlation is made with prior study from 09/22/2018. The heart is enlarged. No infiltrate or failure is seen. No effusion or pneumothorax is identified. Impression: Cardiomegaly. Dictated by: Dictated on workstation # [id number]
[2018-10-27] MEDS: VANCOMYCIN 1250 MG/NS 250 ML IVPB IV SCH ×4 (09:26→17:24)
--- NOTE | 2018-10-27 12:59 | History & Physical-Hospitalist ---
History of Present Illness HPI/Chief Complaint This is a 63-year-old white male with multiple medical problems who presents to the emergency room with complaints of a temperature of 102 for the last 3-4 days. In the last 2 days he's broken out with a rash all over his abdomen. He complains a great deal of weakness as well. He is somewhat ambulatory but mostly is in a scooter or occasionally can ambulate short distances with a cane. He denies having had a previous infection of his abdomen like this. He denies having any inciting events that could've started this. He does note that he had been ill about 5 days ago before the rash started. He also notes that when they were transferring him yesterday he hit his tailbone on the guard rail of the bed and thinks it may be broken. Source: patient Exam Limitations: no limitations Date Seen 10/27/18 Time Seen by a Provider: 12:30 Attending Physician Jessie Buenrostro MD PCP No,Local Physician Referring Physician Date of Admission October 27, 2018 at 01:10 Home Medications & Allergies Home Medications Reviewed patient Home Medication Reconciliation performed by pharmacy medication reconciliations safe technician and/or nursing. Patients Allergies have been reviewed. Allergies Allergies Coded Allergies meperidine (Verified Allergy, Unknown, 02/12/17) Uncoded Allergies iv contrast ( Adverse Reaction, Intermediate, 07/10/17) Past Ctxweyv-Psgzth-Smtppm Hx Past Med/Social Hx: Reviewed Nursing Past Med/Soc Hx Patient Social History Marrital Status: Employed/Student: unemployed Alcohol Use: Denies Use Recreational Drug Use: No Smoking Status: Former Smoker (1 PPD, QUIT ) Former Smoker, Quit: Feb 13, 1987 Type Used: Cigarettes 2nd Hand Smoke Exposure: No Recent Foreign Travel: No Contact w/other who traveled: No Recent Hopitalizations: No Recent Infectious Disease Expo: No Immunizations Up To Date Tetanus Booster (TDap): Unknown Date of Pneumonia Vaccine: Mar 29, 2017 Date of Influenza Vaccine: Mar 29, 2017 Seasonal Allergies Seasonal Allergies: No Past Medical History Surgeries: Abdominal, Gallbladder, Orthopedic Currently Using CPAP: Yes Currently Using BIPAP: No Cardiac: Cardiomyopathy, Chronic Edema/Swelling, Coronary Artery Disease, Heart Attack, High Cholesterol, Hypertension Neurological: Neuropathy, Stroke, TIA Sexually Transmitted Disease: No HIV/AIDS: No Genitourinary: Kidney Stones, Renal Failure Gastrointestinal: Gastroesophageal Reflux Musculoskeletal: Degenerate Disk Disease, Arthritis, Chronic Back Pain, Fractures Endocrine: Hypothyroidsim, Diabetes, Non-Insulin dep HEENT: Cataract History of Blood Disorders: No Adverse Reaction to Blood Pratt: No Family History Cardiovascular disease 19 FATHER 19 MOTHER Diabetes mellitus 19 FATHER 19 MOTHER Hypercholesterolemia 19 FATHER 19 MOTHER Hypertension 19 FATHER 19 MOTHER Myocardial infarction 19 FATHER 19 MOTHER Review of Systems Constitutional: see HPI, chills, fever, weakness EENTM: no symptoms reported Respiratory: dyspnea on exertion Cardiovascular: no symptoms reported Gastrointestinal: no symptoms reported Musculoskeletal: back pain Skin: rash Psychiatric/Neurological: No Symptoms Reported Physical Exam Physical Exam Vital Signs Vital Signs - First Documented 10/27/18 10/27/18 00:00 02:00 Temp 101.3 Pulse 96 Resp 14 B/P (MAP) 132/87 (102) Pulse Ox 94 O2 Delivery Room Air O2 Flow Rate 2.00 Capillary Refill : Less Than 3 Seconds Height, Weight, BMI Height: 6'2.00" Weight: 417lbs. 1.6oz. [id number]; 53.6 BMI Method:Stated General Appearance: Mild Distress, Obese HEENT: Normal ENT Inspection Neck: Limited Range of Motion Respiratory: Chest Non Tender, Lungs Clear, Normal Breath Sounds, No Accessory Muscle Use, No Respiratory Distress Cardiovascular: Regular Rate, Rhythm, No Gallop Gastrointestinal: Distended, Tenderness, Other Rectal: Deferred Back: Normal Inspection, No CVA Tenderness, No Vertebral Tenderness Extremity: Inflammation, Pedal Edema Skin: Erythema, Rash, Other (Large area of the panniculus of the abdomen with edematous erythema and heat without blistering) Results Results/Procedures Labs Laboratory Tests 10/27/18 00:02 10/27/18 05:25 Patient resulted labs reviewed. Imaging: Reviewed Imaging Report Assessment/Plan Admission Diagnosis Sepsis-on vancomycin and Zosyn Panniculitis most likely secondary to staph or strep Acute renal failure Type II diabetes Morbid obesity with hypoventilation syndrome on CPAP degenerative arthritis Dilated cardiomyopathy Urinary tract infection Proteinuria Trauma to the tailbone Hypothyroidism Admission Status: Inpatient Order (span 2 midnights) Reason for Inpatient Admission: Sepsis and multiple comorbidities Diagnosis/Problems Diagnosis/Problems (1) Sepsis Status: Acute (2) Panniculitis Status: Acute (3) Uncontrolled diabetes mellitus Status: Acute (4) Morbid obesity Status: Chronic (5) CHF (congestive heart failure) Status: Chronic Qualifiers: Heart failure type: systolic (6) Abdominal wall cellulitis Status: Acute Clinical Quality Measures DVT/VTE Risk/Contraindication: Risk Factor Score Per Nursin RFS Level Per Nursing on Admit: 4+=Very High JESSIE BUENROSTRO MD October 27, 2018 12:59
[2018-10-27] MEDS ORDERED: SPIRONOLACTONE 25 MG (ALDACTONE) TAB PO SCH (13:16)
[2018-10-27] MEDS: GABAPENTIN 100 MG (NEURONTIN) CAP PO SCH (13:23)
[2018-10-27] MEDS: ASPIRIN E.C. 81 MG (ECOTRIN) TAB PO SCH (13:23)
[2018-10-27] MEDS: CYANOCOBALAMIN 1,000 MCG (VITAMIN B-12) TABLET PO SCH (13:23)
[2018-10-27] MEDS: meTOprolol SUCCINATE 100 MG (TOPROL XL) TAB PO SCH ×2 (13:25→19:53)
[2018-10-27] MEDS: toPIRamate 25 MG (TOPAMAX) TAB PO SCH ×2 (13:26→19:46)
[2018-10-27] MEDS: PANTOPRAZOLE 20 MG TABLET (PROTONIX) PO SCH (13:27)
[2018-10-27] MEDS: LEVOTHYROXINE 150 MCG (LEVOTHROID) TAB PO SCH (13:27)
[2018-10-27] MEDS: lisINopril 20 MG (PRINIVIL) TABLET PO SCH (13:28)
[2018-10-27] MEDS ORDERED: SPIRONOLACTONE 25 MG (ALDACTONE) TAB PO PRN (13:30)
[2018-10-27] MEDS: GABAPENTIN 300 MG (NEURONTIN) CAP PO SCH (19:45)
[2018-10-27] MEDS: SIMvastatin 10 MG (ZOCOR) TAB PO SCH (19:46)
[2018-10-28] VITALS (13 sets, daily range): BP systolic 80–120; BP diastolic 42–74
[2018-10-28] MEDS: VANCOMYCIN 1250 MG/NS 250 ML IVPB IV SCH ×4 (01:27→11:01)
[2018-10-28] MEDS: HYDROcodone/APAP 5 MG/325 MG (LORTAB) TAB PO PRN ×2 (01:29→20:47)
[2018-10-28] MEDS: NS IV 1000 ML 1,000 ML IV SCH ×3 (03:42→19:03)
[2018-10-28] MEDS: LEVOTHYROXINE 150 MCG (LEVOTHROID) TAB PO SCH (05:37)
[2018-10-28] MEDS: inSUlin ASPART (NovoLOG) 1 UNIT/0.01 ML (CHARGE PER UNIT) SC SCH ×4 (05:37→20:47)
[2018-10-28] MEDS: PIPERACILLIN/TAZO 4.5 GM/NS 100 ML IV SCH ×2 (05:37)
[2018-10-28] MEDS: GABAPENTIN 100 MG (NEURONTIN) CAP PO SCH (08:22)
[2018-10-28] MEDS: CYANOCOBALAMIN 1,000 MCG (VITAMIN B-12) TABLET PO SCH (08:22)
[2018-10-28] MEDS: PANTOPRAZOLE 20 MG TABLET (PROTONIX) PO SCH (08:22)
[2018-10-28] MEDS: ASPIRIN E.C. 81 MG (ECOTRIN) TAB PO SCH (08:22)
[2018-10-28] MEDS: toPIRamate 25 MG (TOPAMAX) TAB PO SCH ×2 (08:23→21:49)
[2018-10-28] MEDS: lisINopril 20 MG (PRINIVIL) TABLET PO SCH (08:23)
[2018-10-28] MEDS ORDERED: TROUGH ORDER-PHARMACY XX NR ×2 (09:00→20:00)
[2018-10-28] MEDS: meTOprolol SUCCINATE 100 MG (TOPROL XL) TAB PO SCH (09:02)
[2018-10-28 10:18] LABS: BASOPHILS % (AUTO) 0 % (0-10); EOSINOPHILS # (AUTO) 0.1 10^3/uL (0.0-0.3); EOSINOPHILS % (AUTO) 0 % (0-10); HEMATOCRIT 40 % (40-54); HEMOGLOBIN 12.7 G/DL (13.3-17.7); LYMPHOCYTES # (AUTO) 1.5 X 10^3 (1.0-4.0); LYMPHOCYTES % (AUTO) 8 % (12-44); MEAN CORPUSCULAR HEMOGLOBIN 28 PG (25-34); MEAN CORPUSCULAR HGB CONC 32 G/DL (32-36); MEAN CORPUSCULAR VOLUME 90 FL (80-99); MONOCYTES # (AUTO) 1.3 X 10^3 (0.0-1.0); MONOCYTES % (AUTO) 7 % (0-12); NEUTROPHILS # (AUTO) 14.7 X 10^3 (1.8-7.8); NEUTROPHILS % (AUTO) 84 % (42-75); PLATELET COUNT 227 10^3/uL (130-400); RED CELL DISTRIBUTION WIDTH 14.6 % (10.0-14.5); WHITE BLOOD COUNT 17.6 10^3/uL (4.3-11.0)
[2018-10-28 10:37] LABS: ALBUMIN 3.1 GM/DL (3.2-4.5); BILIRUBIN,TOTAL 1.1 MG/DL (0.1-1.0); CALCIUM 8.1 MG/DL (8.5-10.1); CREATININE SERUM 2.33 MG/DL (0.60-1.30); POTASSIUM 3.8 MMOL/L (3.6-5.0); TOTAL PROTEIN 6.8 GM/DL (6.4-8.2)
--- NOTE | 2018-10-28 10:58 | NUR ---
Vanc trough critical high. Discussed with pharmacy.
--- NOTE | 2018-10-28 11:14 | NUR ---
Vancomycin - Trough 25.6, will hold doses. Repeat trough @ 2000, 10/28/18. IF result of trough is less than 20, will re-start Vancomycin at 1250mg every 12 hours. IF trough continues to greater than or equal to 20, will continue to hold with another trough to be scheduled for 10/29/18 @ 0800.
[2018-10-28] MEDS: ceFAZolin 2 GM IV Premixed 50 ML IV SCH ×2 (13:04→20:37)
--- NOTE | 2018-10-28 13:26 | Progress Note-Hospitalist ---
Subjective HPI/CC On Admission Date Seen by Provider: October 28, 2018 Time Seen by Provider: 13:00 This is a 63-year-old white male with multiple medical problems who presents to the emergency room with complaints of a temperature of 102 for the last 3-4 days. In the last 2 days he's broken out with a rash all over his abdomen. He complains a great deal of weakness as well. He is somewhat ambulatory but mostly is in a scooter or occasionally can ambulate short distances with a cane. He denies having had a previous infection of his abdomen like this. He denies having any inciting events that could've started this. He does note that he had been ill about 5 days ago before the rash started. He also notes that when they were transferring him yesterday he hit his tailbone on the guard rail of the bed and thinks it may be broken. Subjective/Events-last exam Patient feels like he is doing worse. White count is up a little. He is afebrile blood pressure has decreased a little bit even though his blood pressure medicines were held this morning. Creatinine has doubled in dosage him to discontinue the zinc vancomycin and pepper Mercer as I think this is a strep organism. Will change to Ancef in an abundance of caution consideration to add back Zosyn. Have asked Dr. Salgado to see the patient consultation this morning. Still no evidence of necrotizing fasciitis at this juncture. Review of Systems Cardiovascular: Edema Neurological: Weakness Focused Exam Lactate Level 10/27/18 05:25: Lactic Acid Level 2.33*H 10/27/18 07:29: Lactic Acid Level 2.13*H 10/28/18 13:38: Lactic Acid Level 2.00 Objective Exam Vital Signs Vital Signs Date Time Temp Pulse Resp B/P (MAP) Pulse Ox O2 Delivery O2 Flow Rate FiO2 10/28/18 19:48 99 Nasal Cannula 5.00 10/28/18 16:00 97.2 75 20 87/62 (70) Capillary Refill : Less Than 3 Seconds General Appearance: Chronically ill, Mild Distress, Obese HEENT: Normal ENT Inspection Neck: Limited Range of Motion Respiratory: Chest Non Tender, Lungs Clear, Normal Breath Sounds, No Accessory Muscle Use, No Respiratory Distress Cardiovascular: Regular Rate, Rhythm, No Gallop Gastrointestinal: Distended, Tenderness, Other Rectal: Deferred Genital/Rectal: Other (GENITAL AREA WITH GENERAL NORMAL APPEARANCE. NO SWELLING OR ERYTHEMA OR EVIDENCE OF INFECTION. NO SORES/OPEN WOUNDS, ETC. 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 Imaging: Reviewed Imaging Report Assessment/Plan Assessment and Plan Assess & Plan/Chief Complaint Sepsis-on vancomycin and Zosyn- rising BUN/creatinine will DC the vancomycin and Zosyn and change to Ancef Panniculitis most likely secondary to staph or strep-evidence of yeast under panus- we'll place a Montalvo catheter and add Diflucan, appreciate Dr. Salgado's help. Acute renal unlqtra-ucieoeify-wqcjwikqt will improve with holding an CYRUS inhibitor and stopping vancomycin but will need to monitor closely Type II diabetes-out of control Morbid obesity with hypoventilation syndrome on CPAP degenerative arthritis Dilated cardiomyopathy Urinary tract infection Proteinuria Trauma to the tailbone Hypothyroidism-replaced increasing LFT's Hypotension-holding BP meds- gave a bolus of NS with marginal response- cautios with fluids as pt has a dilated cardiomyopathy with decreased EF Diagnosis/Problems Diagnosis/Problems (1) Sepsis Status: Acute (2) Panniculitis Status: Acute (3) Uncontrolled diabetes mellitus Status: Acute (4) Morbid obesity Status: Chronic (5) CHF (congestive heart failure) Status: Chronic Qualifiers: Heart failure type: systolic (6) Abdominal wall cellulitis Status: Acute Clinical Quality Measures DVT/VTE Risk/Contraindication: Risk Factor Score Per Nursin RFS Level Per Nursing on Admit: 4+=Very High NIKOLE BUENROSTRO MD October 28, 2018 13:26
[2018-10-28] MEDS ORDERED: NS IV 1000 ML 1,000 ML IV SCH (13:30)
[2018-10-28] MEDS ORDERED: LIDOCAINE UROJET 2% GEL 10 ML PKG ONE (13:32)
[2018-10-28] MEDS: ENOXAPARIN 60 MG/0.6 ML (LOVENOX) SYR SC SCH (13:53)
[2018-10-28] MEDS: fluCOnazole (DIFLUCAN) 100 MG TAB PO SCH (13:53)
--- NOTE | 2018-10-28 14:43 | Consultation (Surgery) ---
History of Present Illness History of Present Illness Patient Consulted On(ravi/time) 10/28/18 14:36 Date Seen by Provider: October 28, 2018 Time Seen by Provider: 14:36 History of Present Illness Consult requested by Dr. Guzman for abdominal wall panniculitis Patient is a 63 year old male with an expanding erythema located bilaterally along his lower abdomen. The patient first noticed this 4 days ago and said that it has advanced over these last few days. He does not note anything that makes it worse, but has noticed that his antibiotics have slowed the progression. The patient also noticed a fever reaching a temperature of 101 and lasting for 3 days prior to the appearance of the erythema. He has not had any associated nausea, vomiting, or subjective fever at this time. Questions if there was some trauma to his lower abdomen recently when this all began. Allergies and Home Medications Allergies Coded Allergies: meperidine (Verified Allergy, Unknown, 02/12/17) Uncoded Allergies: iv contrast (Adverse Reaction, Intermediate, 07/10/17) Home Medications Aspirin 81 Mg Tablet.dr, 81 MG PO DAILY, (Reported) Benazepril HCl 40 Mg Tab, 20 MG PO DAILY, (Reported) TAKES 1/2 (40MG) TABLET Cyanocobalamin (Vitamin B-12) 1,000 Mcg Tablet, 1,000 MCG PO DAILY, (Reported) Furosemide 40 Mg Tablet, 80 MG PO DAILY, (Reported) DAILY PRN FOR FLUID RETENTION Gabapentin 100 Mg Capsule, 100 MG PO DAILY, (Reported) Gabapentin 100 Mg Capsule, 300 MG PO HS, (Reported) Hydrocodone Bit/Acetaminophen 1 Tab Tab, 1 TAB PO BID PRN for PAIN-MODERATE, ( Reported) Levothyroxine Sodium 300 Mcg Tablet, 300 MCG PO DAILY, (Reported) Metformin HCl 500 Mg Tablet, 1,000 MG PO BID, (Reported) Metoprolol Succinate 100 Mg Tab.er.24h, 100 MG PO HS, (Reported) Metoprolol Succinate 200 Mg Tab.er.24h, 200 MG PO DAILY, (Reported) Omeprazole 20 Mg Capsule.dr, 20 MG PO DAILY, (Reported) Potassium Chloride 20 Meq Tab.er.prt, 20 MEQ PO DAILY, (Reported) Pravastatin Sodium 40 Mg Tablet, 20 MG PO HS, (Reported) Spironolactone 25 Mg Tablet, 25 MG PO DAILY, (Reported) DAILY PRN FOR FLUID RETENTION Topiramate 50 Mg Tablet, 25 MG PO BID, (Reported) Patient Home Medication List Home Medication List Reviewed: Yes Past Uzmaryb-Nwfrum-Nfomfv Hx Patient Social History Alcohol Use: Denies Use Recreational Drug Use: No Smoking Status: Former Smoker (1 PPD, QUIT ) Former Smoker, Quit: Feb 13, 1987 Type Used: Cigarettes 2nd Hand Smoke Exposure: No Recent Foreign Travel: No Contact w/Someone Who Travel: No Recent Infectious Disease Expo: No Recent Hopitalizations: No Immunizations Up To Date Tetanus Booster (TDap): Unknown Date of Pneumonia Vaccine: Mar 29, 2017 Date of Influenza Vaccine: Mar 29, 2017 Seasonal Allergies Seasonal Allergies: No Surgeries History of Surgeries: Yes (KNEE SURGERY, LEFT SHOULDER SURGERY, HERNIA REPAIR, ) Surgeries: Abdominal, Gallbladder, Orthopedic Respiratory History of Respiratory Disorde: Yes (OBESITY-HYPOVENTILATION) Respiratory Disorders: Sleep Apnea, COPD Cardiovascular History of Cardiac Disorders: Yes (CHF) Cardiac Disorders: Cardiomyopathy, Chronic Edema/Swelling, Coronary Artery Disease, Heart Attack, High Cholesterol, Hypertension Neurological History of Neurological Disord: Yes (TIA'S X 4; STROKE X 1) Neurological Disorders: Neuropathy, Stroke, TIA Reproductive System Sexually Transmitted Disease: No HIV/AIDS: No Genitourinary History of Genitourinary Disor: Yes Genitourinary Disorders: Kidney Stones, Renal Failure Gastrointestinal History of Gastrointestinal Di: Yes Gastrointestinal Disorders: Gastroesophageal Reflux Musculoskeletal History of Musculoskeletal Dis: Yes (HIP FX; 2 TORN ROTATOR CUFFS; RIGHT HIP AND LOWER BACK PAIN ) Musculoskeletal Disorders: Degenerate Disk Disease, Arthritis, Chronic Back Pain, Fractures Endocrine History of Endocrine Disorders: Yes (MORBID OBESITY) Endocrine Disorders: Hypothyroidsim, Diabetes, Non-Insulin dep HEENT History of HEENT Disorders: Yes HEENT Disorders: Cataract Cancer History of Cancer: No Psychosocial History of Psychiatric Problem: No Integumentary History of Skin or Integumenta: No Blood Transfusions History of Blood Disorders: No Adverse Reaction to a Blood Tr: No Reviewed Nursing Assessment Reviewed/Agree w Nursing PMH: Yes Family Medical History Significant Family History: Heart Disease, Diabetes, Hypertension Family Medial History: Cardiovascular disease 19 FATHER 19 MOTHER Diabetes mellitus 19 FATHER 19 MOTHER Hypercholesterolemia 19 FATHER 19 MOTHER Hypertension 19 FATHER 19 MOTHER Myocardial infarction 19 FATHER 19 MOTHER Review of Systems-General Constitutional: no symptoms reported EENTM: no symptoms reported Respiratory: no symptoms reported Cardiovascular: no symptoms reported Gastrointestinal: see HPI Genitourinary: no symptoms reported Skin: see HPI Psychiatric/Neurological: No Symptoms Reported Physical Exam-General Problems Physical Exam Vital Signs Vital Signs - First Documented 10/27/18 10/27/18 00:00 02:00 Temp 101.3 Pulse 96 Resp 14 B/P (MAP) 132/87 (102) Pulse Ox 94 O2 Delivery Room Air O2 Flow Rate 2.00 Capillary Refill : Less Than 3 Seconds General Appearance: no apparent distress HEENT: PERRL/EOMI, normal ENT inspection Neck: non-tender, full range of motion, supple Respiratory: chest non-tender, no respiratory distress, no accessory muscle use Cardiovascular: regular rate, rhythm Gastrointestinal: non tender, soft, other (Erythema in bilateral lower abdominal quadrants with large panniculus that is extremely indurated no areas of fluctuance) Rectal: deferred Genital/Rectal: other (fungal changes in inguinal regions) Extremities: normal range of motion, non-tender, normal inspection 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/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: 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 nml as tested, no motor/sensory deficits, alert, normal mood/affect, oriented x 3 Skin: warm/dry, other (erythema in bilateral lower abdomen) Lymphatic: no adenopathy Data Review Labs Laboratory Tests 10/27/18 16:07: Glucometer 308H 10/27/18 20:10: Glucometer 304H 10/28/18 05:28: Glucometer 264H 10/28/18 10:07: White Blood Count 17.6H, Red Blood Count 4.48, Hemoglobin 12.7L, Hematocrit 40, Mean Corpuscular Volume 90, Mean Corpuscular Hemoglobin 28, Mean Corpuscular Hemoglobin Concent 32, Red Cell Distribution Width 14.6H, Platelet Count 227, Mean Platelet Volume 11.0H, Neutrophils (%) (Auto) 84H, Lymphocytes (%) (Auto) 8L, Monocytes (%) (Auto) 7, Eosinophils (%) (Auto) 0, Basophils (%) (Auto) 0, Neutrophils # (Auto) 14.7H, Lymphocytes # (Auto) 1.5, Monocytes # (Auto) 1.3H, Eosinophils # (Auto) 0.1, Basophils # (Auto) 0.0, Sodium Level 133L, Potassium Level 3.8, Chloride Level 103, Carbon Dioxide Level 18L, Anion Gap 12, Blood Urea Nitrogen 34H, Creatinine 2.33H, Estimat Glomerular Filtration Rate 28, BUN/ Creatinine Ratio 15, Glucose Level 257H, Calcium Level 8.1L, Corrected Calcium 8.8, Total Bilirubin 1.1H, Aspartate Amino Transf (AST/SGOT) 91H, Alanine Aminotransferase (ALT/SGPT) 55, Alkaline Phosphatase 238H, B-Type Natriuretic Peptide 538.6H, Total Protein 6.8, Albumin 3.1L, Vancomycin Level Trough 25.6*H 10/28/18 11:18: Glucometer 248H 10/28/18 13:38: Lactic Acid Level 2.00 Microbiology 10/27/18 Blood Culture - Preliminary, Resulted No growth 10/27/18 Urine Culture - Final, Complete NO GROWTH Assessment/Plan Assessment/Plan Assessment/Plan Panniculitis Sepsis secondary to panniculitis Diabetes Morbid obesity Acute renal failure No surgical intervention recommended at this time abx on ancef Add diflucan for possible fungal infection coverage Continue to follow No evidence of Necrotizing fasciitis Clinical Quality Measures DVT/VTE Risk/Contraindication: Risk Factor Score Per Nursin RFS Level Per Nursing on Admit: 4+=Very High KEVIN SANTIAGO DO October 28, 2018 14:43
[2018-10-28 15:56] LABS: BASOPHILS % (AUTO) 0 % (0-10); EOSINOPHILS # (AUTO) 0.1 10^3/uL (0.0-0.3); EOSINOPHILS % (AUTO) 0 % (0-10); HEMATOCRIT 46 % (40-54); HEMOGLOBIN 14.6 G/DL (13.3-17.7); LYMPHOCYTES # (AUTO) 1.5 X 10^3 (1.0-4.0); LYMPHOCYTES % (AUTO) 9 % (12-44); MEAN CORPUSCULAR HEMOGLOBIN 28 PG (25-34); MEAN CORPUSCULAR HGB CONC 32 G/DL (32-36); MEAN CORPUSCULAR VOLUME 90 FL (80-99); MEAN PLATELET VOLUME 11.2 FL (7.4-10.4); MONOCYTES # (AUTO) 1.2 X 10^3 (0.0-1.0); MONOCYTES % (AUTO) 8 % (0-12); NEUTROPHILS % (AUTO) 83 % (42-75); PLATELET COUNT 192 10^3/uL (130-400); RED CELL DISTRIBUTION WIDTH 14.7 % (10.0-14.5); WHITE BLOOD COUNT 15.8 10^3/uL (4.3-11.0)
[2018-10-28 16:14] LABS: ALBUMIN 3.2 GM/DL (3.2-4.5); BILIRUBIN,TOTAL 0.9 MG/DL (0.1-1.0); CALCIUM 8.3 MG/DL (8.5-10.1); CREATININE SERUM 2.52 MG/DL (0.60-1.30); POTASSIUM 4.1 MMOL/L (3.6-5.0)
[2018-10-28 16:21] LABS: BAND NEUTROPHILS 5 %; LYMPHOCYTES % (MANUAL) 9 %; METAMYELOCYTES % 2 %; MONOCYTES % (MANUAL) 10 %; NEUTROPHILS % (MANUAL) 75 %; POLYCHROMASIA SLIGHT
--- NOTE | 2018-10-28 18:45 | NUR ---
1730 pt noted to have bright red urine. Output approximately 200 mL in the past 4 hours. [address] Guzman, BP still 80's/60's with bolus given at 1330. Pt still appears weaker than yesterday. Abdomen more red and has advanced past markings. Renal labs high and continue to increase with each lab draw. Blood sugars remain in the 200's throughout the day. 1810- order received to transfer pt to ICU 1845- pt moved to ICU 10, report given to Christin. attempted to contact pt's , no answer, no voicemail set up.
[2018-10-28 19:32] LABS: BASOPHILS % (AUTO) 0 % (0-10); EOSINOPHILS # (AUTO) 0.1 10^3/uL (0.0-0.3); EOSINOPHILS % (AUTO) 0 % (0-10); HEMATOCRIT 42 % (40-54); HEMOGLOBIN 13.4 G/DL (13.3-17.7); LYMPHOCYTES # (AUTO) 1.5 X 10^3 (1.0-4.0); LYMPHOCYTES % (AUTO) 9 % (12-44); MEAN CORPUSCULAR HEMOGLOBIN 29 PG (25-34); MEAN CORPUSCULAR HGB CONC 32 G/DL (32-36); MEAN CORPUSCULAR VOLUME 89 FL (80-99); MEAN PLATELET VOLUME 10.8 FL (7.4-10.4); MONOCYTES # (AUTO) 1.2 X 10^3 (0.0-1.0); MONOCYTES % (AUTO) 8 % (0-12); NEUTROPHILS # (AUTO) 13.6 X 10^3 (1.8-7.8); NEUTROPHILS % (AUTO) 83 % (42-75); PLATELET COUNT 198 10^3/uL (130-400); RED CELL DISTRIBUTION WIDTH 14.5 % (10.0-14.5); WHITE BLOOD COUNT 16.4 10^3/uL (4.3-11.0)
[2018-10-28 19:35] LABS: SMEAR SCAN COMMENT YES
[2018-10-28 19:46] LABS: INR 1.3 (0.8-1.4); PROTHROMBIN TIME PATIENT 16.5 SEC (12.2-14.7)
[2018-10-28 20:13] LABS: BILIRUBIN,TOTAL 0.7 MG/DL (0.1-1.0); CALCIUM 8.2 MG/DL (8.5-10.1); CREATININE SERUM 2.72 MG/DL (0.60-1.30); POTASSIUM 3.9 MMOL/L (3.6-5.0); TOTAL PROTEIN 6.6 GM/DL (6.4-8.2)
[2018-10-28] MEDS: SIMvastatin 10 MG (ZOCOR) TAB PO SCH (20:37)
[2018-10-28] MEDS: GABAPENTIN 300 MG (NEURONTIN) CAP PO SCH (20:37)
[2018-10-28] MEDS ORDERED: VANCOMYCIN 1250 MG/NS 250 ML IVPB IV SCH ×2 (21:00)
[2018-10-28] MEDS: ACETAMINOPHEN 500 MG TAB (TYLENOL) PO PRN (22:55)
[2018-10-29] VITALS (20 sets, daily range): BP systolic 87–140; BP diastolic 37–83
[2018-10-29] MEDS: NS IV 1000 ML 1,000 ML IV SCH ×4 (02:30→23:01)
[2018-10-29] MEDS: ENOXAPARIN 60 MG/0.6 ML (LOVENOX) SYR SC SCH (03:04)
[2018-10-29] MEDS: HYDROcodone/APAP 5 MG/325 MG (LORTAB) TAB PO PRN (03:40)
[2018-10-29 04:04] LABS: BASOPHILS % (AUTO) 0 % (0-10); EOSINOPHILS # (AUTO) 0.1 10^3/uL (0.0-0.3); EOSINOPHILS % (AUTO) 1 % (0-10); HEMATOCRIT 43 % (40-54); HEMOGLOBIN 13.5 G/DL (13.3-17.7); LYMPHOCYTES # (AUTO) 1.9 X 10^3 (1.0-4.0); LYMPHOCYTES % (AUTO) 12 % (12-44); MEAN CORPUSCULAR HEMOGLOBIN 28 PG (25-34); MEAN CORPUSCULAR HGB CONC 31 G/DL (32-36); MEAN CORPUSCULAR VOLUME 90 FL (80-99); MEAN PLATELET VOLUME 11.2 FL (7.4-10.4); MONOCYTES # (AUTO) 1.2 X 10^3 (0.0-1.0); MONOCYTES % (AUTO) 8 % (0-12); NEUTROPHILS # (AUTO) 12.1 X 10^3 (1.8-7.8); NEUTROPHILS % (AUTO) 79 % (42-75); PLATELET COUNT 231 10^3/uL (130-400); RED CELL DISTRIBUTION WIDTH 14.5 % (10.0-14.5); WHITE BLOOD COUNT 15.3 10^3/uL (4.3-11.0)
[2018-10-29] MEDS: ceFAZolin 2 GM IV Premixed 50 ML IV SCH (04:15)
[2018-10-29 04:28] LABS: ALBUMIN 3.1 GM/DL (3.2-4.5); BILIRUBIN,TOTAL 0.6 MG/DL (0.1-1.0); CALCIUM 8.5 MG/DL (8.5-10.1); CREATININE SERUM 2.86 MG/DL (0.60-1.30); POTASSIUM 4.1 MMOL/L (3.6-5.0); TOTAL PROTEIN 6.7 GM/DL (6.4-8.2)
[2018-10-29] MEDS: inSUlin ASPART (NovoLOG) 1 UNIT/0.01 ML (CHARGE PER UNIT) SC SCH ×4 (06:15→20:49)
[2018-10-29] MEDS: LEVOTHYROXINE 150 MCG (LEVOTHROID) TAB PO SCH (06:39)
[2018-10-29] MEDS: PANTOPRAZOLE 20 MG TABLET (PROTONIX) PO SCH (09:57)
[2018-10-29] MEDS: fluCOnazole (DIFLUCAN) 100 MG TAB PO SCH (09:57)
[2018-10-29] MEDS: GABAPENTIN 100 MG (NEURONTIN) CAP PO SCH (09:57)
[2018-10-29] MEDS: toPIRamate 25 MG (TOPAMAX) TAB PO SCH ×2 (09:57→20:44)
[2018-10-29] MEDS: ASPIRIN E.C. 81 MG (ECOTRIN) TAB PO SCH (09:57)
[2018-10-29] MEDS: CYANOCOBALAMIN 1,000 MCG (VITAMIN B-12) TABLET PO SCH (09:58)
[2018-10-29] MEDS: ceFAZolin INJECTION 2,000 MG in NS (IVPB) 50 ML IV SCH ×2 (12:33→20:44)
--- NOTE | 2018-10-29 12:56 | Progress Note-Hospitalist ---
Progress Note Progress Notes/Assess & Plan Date Seen 10/29/18 Time Seen by Provider: 11:50 Assessment & Plan The patient is a 63-year-old white male who was admitted after he presented with complaints of redness and discomfort of his abdominal wall. He stated this began about 5 days ago. At first it was in the midline in the most dependent part of his pannus. This Expanding until he became alarmed. He presented to the emergency room and was noted to have findings consistent with cellulitis/panniculitis. His medications were changed yesterday as he has been exhibiting a modest but continuing elevation in his creatinine. His creatinine at presentation was 1.6 to and has climbed serially to 2.5 to than 2.72 and today 2.86. Urine output is satisfactory. He reports that his redness has gotten slightly greater since admission however the area in the lower pole has gotten less angry over the time of admission. There is minimum pain and only some discomfort when others are palpating his stomach. Physical exam: He is alert. Lungs are clear to auscultation. CV is regular. The abdomen shows a huge pannus. The most dependent portion of this is a light pink. The upper pole is the about 10 cm in vertical measurement and is quite fiery red. Other labs of note shows the white blood count to be basically 15,000 at each determination. He had a temperature of 101.3 at admission and has not been having febrile since. Impression: Cellulitis. 2.panniculitis/possible necrotizing fasciitis. 3.diabetes mellitus. 4.morbid obesity. 5.sleep apnea. Plan: Continue adjusted antibiotics and observe. Focused Exam Lactate Level 10/27/18 05:25: Lactic Acid Level 2.33*H 10/27/18 07:29: Lactic Acid Level 2.13*H 10/28/18 13:38: Lactic Acid Level 2.00 LONG PLASCENCIA MD October 29, 2018 12:56
--- NOTE | 2018-10-29 12:59 | Consultation-Cardiology ---
HPI-Cardiology Cardiology Consultation: Date of Consultation 10/29/18 Time Seen by a Provider: 12:15 Date of Admission Attending Physician Jessie uGzman MD Admitting Physician No,Local Physician Consulting Physician LANCE TAPIA MD, MA, FACP, FACC, [facility] [place], CCDS Physician requesting consult: Dr Guzman HPI: Chief Complaint: Reason for consultation: Hypotension 63 yo man who started to have high-grade fevers and chills approx 3 days ago. The next day he awoke with redness of the infra-umbilical abdominal wall with discomfort. Notes gen weakness and malaise. Came to hosp. Was hosp for panniculitis. Was hypotensive last night and was admitted to ICU. Denies cp or palp or syncope. Has chronic exertional shortness of breath. Has chronic bilat leg swelling and discoloration of the skin of the legs. Does not report N/V/D Review of Systems-Cardiology Review of Systems Constitutional: As described under HPI Eyes: No vision change Ears/Nose/Throat: No ear discharge, No mouth swelling, No recent hearing loss Respiratory: As described under HPI Cardiovascular: As described under HPI Gastrointestinal: As described under HPI Genitourinary: No dysuria, No hematuria, No urine frequency changes Musculoskeletal: back pain (chronic) Skin: As described under HPI Psychiatric/Neurological: No seizure, No focal weakness, No syncope Hematologic: No bleeding abnormalities VRX-Lrmanf-Rdgomy Hx Patient Social History Marrital Status: Employed/Student: unemployed Alcohol Use: Denies Use Recreational Drug Use: No Smoking Status: Former Smoker (1 PPD, QUIT ) Type Used: Cigarettes 2nd Hand Smoke Exposure: No Recent Foreign Travel: No Recent Infectious Disease Expo: No Hospitalization with Isolation: Denies Immunizations Up To Date Tetanus Booster (TDap): Unknown Date of Pneumonia Vaccine: Mar 29, 2017 Date of Influenza Vaccine: Mar 29, 2017 Past Medical History PMH As described under Assessment. Family Medical History Family History: Cardiovascular disease 19 FATHER 19 MOTHER Diabetes mellitus 19 FATHER 19 MOTHER Hypercholesterolemia 19 FATHER 19 MOTHER Hypertension 19 FATHER 19 MOTHER Myocardial infarction 19 FATHER 19 MOTHER Allergies and Home Medications Allergies Coded Allergies: meperidine (Verified Allergy, Unknown, 02/12/17) Uncoded Allergies: iv contrast (Adverse Reaction, Intermediate, 07/10/17) Home Medications Aspirin 81 Mg Tablet., 81 MG PO DAILY, (Reported) Benazepril HCl 40 Mg Tab, 20 MG PO DAILY, (Reported) TAKES 1/2 (40MG) TABLET Cyanocobalamin (Vitamin B-12) 1,000 Mcg Tablet, 1,000 MCG PO DAILY, (Reported) Furosemide 40 Mg Tablet, 80 MG PO DAILY, (Reported) DAILY PRN FOR FLUID RETENTION Gabapentin 100 Mg Capsule, 100 MG PO DAILY, (Reported) Gabapentin 100 Mg Capsule, 300 MG PO HS, (Reported) Hydrocodone Bit/Acetaminophen 1 Tab Tab, 1 TAB PO BID PRN for PAIN-MODERATE, ( Reported) Levothyroxine Sodium 300 Mcg Tablet, 300 MCG PO DAILY, (Reported) Metformin HCl 500 Mg Tablet, 1,000 MG PO BID, (Reported) Metoprolol Succinate 100 Mg Tab.er.24h, 100 MG PO HS, (Reported) Metoprolol Succinate 200 Mg Tab.er.24h, 200 MG PO DAILY, (Reported) Omeprazole 20 Mg Capsule.dr, 20 MG PO DAILY, (Reported) Potassium Chloride 20 Meq Tab.er.prt, 20 MEQ PO DAILY, (Reported) Pravastatin Sodium 40 Mg Tablet, 20 MG PO HS, (Reported) Spironolactone 25 Mg Tablet, 25 MG PO DAILY, (Reported) DAILY PRN FOR FLUID RETENTION Topiramate 50 Mg Tablet, 25 MG PO BID, (Reported) Patient Home Medication List Home Medication List Reviewed: Yes Physical Exam-Cardiology Physical Exam Vital Signs/I&O 10/29/18 10/29/18 10/29/18 10/29/18 02:00 03:00 04:00 04:00 Temp 98.1 Pulse 68 73 Resp 18 30 B/P (MAP) 103/61 (75) 118/60 (79) Pulse Ox 95 91 O2 Delivery NIV CPAP NIV CPAP NIV CPAP O2 Flow Rate 3.50 3.50 3.50 10/29/18 10/29/18 10/29/18 10/29/18 04:00 05:00 06:00 07:00 Pulse 73 66 70 65 Resp 24 18 17 B/P (MAP) 113/67 (82) 107/60 (76) 97/62 (74) Pulse Ox 96 95 95 O2 Delivery NIV CPAP NIV CPAP NIV CPAP O2 Flow Rate 3.50 3.50 3.50 10/29/18 10/29/18 10/29/18 10/29/18 07:00 07:32 08:00 08:00 Temp 97.1 Pulse 65 66 Resp 14 35 B/P (MAP) 115/78 (90) 104/58 (73) Pulse Ox 95 96 95 O2 Delivery NIV CPAP Room Air NIV CPAP O2 Flow Rate 3.50 3.50 10/29/18 10/29/18 10/29/18 10/29/18 08:43 09:00 10:00 11:00 Pulse 71 71 69 Resp 21 B/P (MAP) 116/78 (91) 114/72 (86) 111/66 (81) Pulse Ox 93 95 99 99 O2 Delivery NIV CPAP Room Air Room Air Room Air O2 Flow Rate 3.50 10/29/18 12:00 Pulse Ox 99 O2 Delivery Nasal Cannula O2 Flow Rate 3.00 10/29/18 00:00 Intake Total 2100 ml Output Total 840 ml Balance 1260 ml Capillary Refill : Less Than 3 Seconds Constitutional: AAO x 3, well-developed, well-nourished, other (morbid obesity) HEENT: PERRL, EOMI; No xanthelasmas are seen Neck: carotid pulses are 2 + bilaterally, with good upstrokes Respiratory: No accessory muscle use; other (fair bilat air enty, diminished at the bases) Cardiovascular: regular rate-rhythm, S1 and S2, systolic murmur (faint MANUEL at card base) Gastrointestinal: No tender; soft; No guarding; rebound, other (marked redness of infra-umbilical abdominal wall and the inguinal region with mild swelling) Extremities: other (reddish-blue discoloration of the legs and feet); No clubbing, No cyanosis; significant edema (moderate, bilat leg edema that is pitting and non-pitting) Neurologic/Psychiatric: oriented x 3, grossly intact, power is 5/5 both on sides Skin: other (see above under GI and Extremities exam) Lymphatic: no adenopathy Data Review Labs Laboratory Tests 10/28/18 13:38: Lactic Acid Level 2.00 10/28/18 15:50: White Blood Count 15.8H, Red Blood Count 5.15, Hemoglobin 14.6, Hematocrit 46, Mean Corpuscular Volume 90, Mean Corpuscular Hemoglobin 28, Mean Corpuscular Hemoglobin Concent 32, Red Cell Distribution Width 14.7H, Platelet Count 192, Mean Platelet Volume 11.2H, Neutrophils (%) (Auto) 83H, Lymphocytes (%) (Auto) 9L, Monocytes (%) (Auto) 8, Eosinophils (%) (Auto) 0, Basophils (%) (Auto) 0, Neutrophils # (Auto) 13.0H, Lymphocytes # (Auto) 1.5, Monocytes # (Auto) 1.2H, Eosinophils # (Auto) 0.1, Basophils # (Auto) 0.0, Neutrophils % (Manual) 75, Lymphocytes % (Manual) 9, Monocytes % (Manual) 10, Metamyelocytes % 2, Band Neutrophils 5, Polychromasia SLIGHT, Blood Morphology Comment , Sodium Level 132L, Potassium Level 4.1, Chloride Level 105, Carbon Dioxide Level 15L, Anion Gap 12, Blood Urea Nitrogen 36H, Creatinine 2.52H, Estimat Glomerular Filtration Rate 26, BUN/Creatinine Ratio 14, Glucose Level 296H, Calcium Level 8.3L, Corrected Calcium 8.9, Total Bilirubin 0.9, Aspartate Amino Transf (AST/ SGOT) 105H, Alanine Aminotransferase (ALT/SGPT) 59H, Alkaline Phosphatase 260H, Total Protein 7.0, Albumin 3.2 10/28/18 16:38: Glucometer 265H 10/28/18 19:27: White Blood Count 16.4H, Red Blood Count 4.69, Hemoglobin 13.4, Hematocrit 42, Mean Corpuscular Volume 89, Mean Corpuscular Hemoglobin 29, Mean Corpuscular Hemoglobin Concent 32, Red Cell Distribution Width 14.5, Platelet Count 198, Mean Platelet Volume 10.8H, Neutrophils (%) (Auto) 83H, Lymphocytes (%) (Auto) 9L, Monocytes (%) (Auto) 8, Eosinophils (%) (Auto) 0, Basophils (%) (Auto) 0, Neutrophils # (Auto) 13.6H, Lymphocytes # (Auto) 1.5, Monocytes # (Auto) 1.2H, Eosinophils # (Auto) 0.1, Basophils # (Auto) 0.0, Sodium Level 134L, Potassium Level 3.9, Chloride Level 104, Carbon Dioxide Level 18L, Anion Gap 12, Blood Urea Nitrogen 38H, Creatinine 2.72H, Estimat Glomerular Filtration Rate 24, BUN/ Creatinine Ratio 14, Glucose Level 276H, Calcium Level 8.2L, Corrected Calcium 9.0, Total Bilirubin 0.7, Aspartate Amino Transf (AST/SGOT) 86H, Alanine Aminotransferase (ALT/SGPT) 56H, Alkaline Phosphatase 244H, Total Protein 6.6, Albumin 3.0L, Prothrombin Time 16.5H, INR Comment 1.3, Activated Partial Thromboplast Time 39H, Smear Scan YES 10/28/18 20:41: Glucometer 241H 10/29/18 03:20: White Blood Count 15.3H, Red Blood Count 4.84, Hemoglobin 13.5, Hematocrit 43, Mean Corpuscular Volume 90, Mean Corpuscular Hemoglobin 28, Mean Corpuscular Hemoglobin Concent 31L, Red Cell Distribution Width 14.5, Platelet Count 231, Mean Platelet Volume 11.2H, Neutrophils (%) (Auto) 79H, Lymphocytes (%) (Auto) 12, Monocytes (%) (Auto) 8, Eosinophils (%) (Auto) 1, Basophils (%) (Auto) 0, Neutrophils # (Auto) 12.1H, Lymphocytes # (Auto) 1.9, Monocytes # (Auto) 1.2H, Eosinophils # (Auto) 0.1, Basophils # (Auto) 0.0, Sodium Level 135, Potassium Level 4.1, Chloride Level 104, Carbon Dioxide Level 18L, Anion Gap 13, Blood Urea Nitrogen 39H, Creatinine 2.86H, Estimat Glomerular Filtration Rate 22, BUN/ Creatinine Ratio 14, Glucose Level 231H, Calcium Level 8.5, Corrected Calcium 9.2, Total Bilirubin 0.6, Aspartate Amino Transf (AST/SGOT) 57H, Alanine Aminotransferase (ALT/SGPT) 50, Alkaline Phosphatase 251H, B-Type Natriuretic Peptide 759.6H, Total Protein 6.7, Albumin 3.1L 10/29/18 11:28: Glucometer 222H Microbiology 10/27/18 Blood Culture - Preliminary, Resulted No growth 10/27/18 Urine Culture - Final, Complete NO GROWTH A/P-Cardiology Assessment/Admission Diagnosis Acute panniculits with sepsis and septic shock WENCESLAO stage 2 superimposed on CKD stage 2 Chronic systolic CHF due to dilated cardiomyopathy. Echo of 10/29/18: LVEF 30-5%, AoV scl w/o stenoses, PASP 25 mmHg MPI on 02/14/17: LVEF 30%, mod cardiomegaly, no distinct evidence of ischemia or infarction Morbid obesity with obesity-hypoventilation and RORY syndrome Quit smoking in the 1980s DM II with diabetic nephropathy Hyperlipidemia, by history Chronic back pain Chronic leg swelling, likely related to venous insuff Symptoms of claudication, but seg pressures of 09/01/17 did not show any significant obstructive disease of the legs Discussion and Recomendations * Severely ill * iv fluids to manage septic shock * Antibiotic therapy as directed by the Med Svce * Follow labs, in particular his renal function * Hold off on nephrotoxic agents, such as ARBs and CYRUS-inhib * Monitor for clinical heart failure * I spoke with him and discussed his CV issues Clinical Quality Measures DVT/VTE Risk/Contraindication: Risk Factor Score Per Nursin RFS Level Per Nursing on Admit: 4+=Very High LANCE TAPIA MD FACP FAC CCDS October 29, 2018 12:59
[2018-10-29] MEDS ORDERED: ENOXAPARIN 40 MG/0.4 ML (LOVENOX) SYR SC SCH (17:00)
--- NOTE | 2018-10-29 17:19 | Progress Note ---
Subjective Date Seen by a Provider: October 29, 2018 Time Seen by a Provider: 12:55 Subjective/Events-last exam Patient cr increasing. Abdomen/panniculitis no significant pain at this time. Patient feels less intensity in the redness and not expanding. Denies n/v sweats chills shortness of breath or chest pain. Focused Exam Lactate Level 10/27/18 05:25: Lactic Acid Level 2.33*H 10/27/18 07:29: Lactic Acid Level 2.13*H 10/28/18 13:38: Lactic Acid Level 2.00 Objective Exam Vital Signs Date Time Temp Pulse Resp B/P (MAP) Pulse Ox O2 Delivery O2 Flow Rate FiO2 10/29/18 16:00 68 122/72 (89) Room Air 10/29/18 16:00 99 Nasal Cannula 3.00 10/29/18 13:53 68 10/29/18 12:00 99 Nasal Cannula 3.00 10/29/18 11:00 69 111/66 (81) 99 Room Air 10/29/18 10:00 71 114/72 (86) 99 Room Air 10/29/18 09:00 71 21 116/78 (91) 95 Room Air 10/29/18 08:43 93 NIV CPAP 3.50 10/29/18 08:00 66 35 104/58 (73) 95 NIV CPAP 3.50 10/29/18 08:00 96 Room Air 10/29/18 07:32 97.1 10/29/18 07:00 65 14 115/78 (90) 95 NIV CPAP 3.50 10/29/18 07:00 65 10/29/18 06:00 70 17 97/62 (74) 95 NIV CPAP 3.50 10/29/18 05:00 66 18 107/60 (76) 95 NIV CPAP 3.50 10/29/18 04:00 73 24 113/67 (82) 96 NIV CPAP 3.50 10/29/18 04:00 NIV CPAP 3.50 10/29/18 04:00 98.1 10/29/18 03:00 73 30 118/60 (79) 91 NIV CPAP 3.50 10/29/18 02:00 68 18 103/61 (75) 95 NIV CPAP 3.50 10/29/18 01:00 70 10/29/18 01:00 70 21 115/68 (84) 94 NIV CPAP 3.50 10/29/18 00:00 97.1 10/29/18 00:00 NIV CPAP 3.50 10/29/18 00:00 70 12 89/60 (70) 94 NIV CPAP 3.50 10/28/18 23:00 77 25 105/60 (75) 96 NIV CPAP 3.50 10/28/18 22:00 70 15 114/61 (78) 95 NIV CPAP 3.50 10/28/18 21:00 72 18 114/74 (87) 95 NIV CPAP 3.50 10/28/18 20:35 73 20 105/63 (77) 95 NIV CPAP 3.50 10/28/18 20:00 72 26 103/62 (76) 99 Nasal Cannula 5.00 10/28/18 20:00 96.9 10/28/18 20:00 Nasal Cannula 2.00 10/28/18 19:48 99 Nasal Cannula 5.00 10/28/18 19:45 73 26 112/67 (82) 99 Nasal Cannula 5.00 10/28/18 19:30 71 17 120/68 (85) 99 Nasal Cannula 5.00 10/28/18 19:00 74 10 119/66 (83) 98 Nasal Cannula 5.00 10/28/18 19:00 74 I & O 10/29/18 07:00 Intake Total 2550 ml Output Total 1265 ml Balance 1285 ml Capillary Refill : Less Than 3 Seconds General Appearance: No Apparent Distress, Chronically ill, Obese HEENT: PERRL/EOMI, Normal ENT Inspection Neck: Normal Inspection, Non Tender Respiratory: Chest Non Tender, No Accessory Muscle Use, No Respiratory Distress Cardiovascular: Regular Rate, Rhythm, No Gallop Gastrointestinal: non tender, soft, other (Erythema in bilateral lower abdominal quadrants with large panniculus that is extremely indurated no areas of fluctuance) Extremity: Inflammation, Pedal Edema Neurologic/Psychiatric: Alert, Oriented x3, Normal 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, 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 Norm as Tested, Other (DECREASED SENSATION TO FEET ) Skin: Erythema, Rash, Other (Large area of the panniculus of the abdomen with edematous erythema and heat without blistering less intensity of erythema) Results Lab Laboratory Tests 10/28/18 19:27: White Blood Count 16.4H, Red Blood Count 4.69, Hemoglobin 13.4, Hematocrit 42, Mean Corpuscular Volume 89, Mean Corpuscular Hemoglobin 29, Mean Corpuscular Hemoglobin Concent 32, Red Cell Distribution Width 14.5, Platelet Count 198, Mean Platelet Volume 10.8H, Neutrophils (%) (Auto) 83H, Lymphocytes (%) (Auto) 9L, Monocytes (%) (Auto) 8, Eosinophils (%) (Auto) 0, Basophils (%) (Auto) 0, Neutrophils # (Auto) 13.6H, Lymphocytes # (Auto) 1.5, Monocytes # (Auto) 1.2H, Eosinophils # (Auto) 0.1, Basophils # (Auto) 0.0, Prothrombin Time 16.5H, INR Comment 1.3, Activated Partial Thromboplast Time 39H, Sodium Level 134L, Potassium Level 3.9, Chloride Level 104, Carbon Dioxide Level 18L, Anion Gap 12 , Blood Urea Nitrogen 38H, Creatinine 2.72H, Estimat Glomerular Filtration Rate 24, BUN/Creatinine Ratio 14, Glucose Level 276H, Calcium Level 8.2L, Corrected Calcium 9.0, Total Bilirubin 0.7, Aspartate Amino Transf (AST/SGOT) 86H, Alanine Aminotransferase (ALT/SGPT) 56H, Alkaline Phosphatase 244H, Total Protein 6.6, Albumin 3.0L, Smear Scan YES 10/28/18 20:41: Glucometer 241H 10/29/18 03:20: White Blood Count 15.3H, Red Blood Count 4.84, Hemoglobin 13.5, Hematocrit 43, Mean Corpuscular Volume 90, Mean Corpuscular Hemoglobin 28, Mean Corpuscular Hemoglobin Concent 31L, Red Cell Distribution Width 14.5, Platelet Count 231, Mean Platelet Volume 11.2H, Neutrophils (%) (Auto) 79H, Lymphocytes (%) (Auto) 12, Monocytes (%) (Auto) 8, Eosinophils (%) (Auto) 1, Basophils (%) (Auto) 0, Neutrophils # (Auto) 12.1H, Lymphocytes # (Auto) 1.9, Monocytes # (Auto) 1.2H, Eosinophils # (Auto) 0.1, Basophils # (Auto) 0.0, Sodium Level 135, Potassium Level 4.1, Chloride Level 104, Carbon Dioxide Level 18L, Anion Gap 13, Blood Urea Nitrogen 39H, Creatinine 2.86H, Estimat Glomerular Filtration Rate 22, BUN/ Creatinine Ratio 14, Glucose Level 231H, Calcium Level 8.5, Corrected Calcium 9.2, Total Bilirubin 0.6, Aspartate Amino Transf (AST/SGOT) 57H, Alanine Aminotransferase (ALT/SGPT) 50, Alkaline Phosphatase 251H, Total Protein 6.7, Albumin 3.1L, B-Type Natriuretic Peptide 759.6H 10/29/18 11:28: Glucometer 222H 10/29/18 16:15: Glucometer 218H Microbiology 10/27/18 Blood Culture - Preliminary, Resulted No growth 10/27/18 Urine Culture - Final, Complete NO GROWTH Assessment/Plan Assessment/Plan Assessment/Plan Panniculitis Sepsis secondary to panniculitis Diabetes Morbid obesity Acute renal failure No surgical intervention recommended at this time continue abx Continue to follow No evidence of Necrotizing fasciitis will follow Clinical Quality Measures DVT/VTE Risk/Contraindication: Risk Factor Score Per Nursin RFS Level Per Nursing on Admit: 4+=Very High KEVIN SANTIAGO DO October 29, 2018 17:19
[2018-10-29] MEDS: GABAPENTIN 300 MG (NEURONTIN) CAP PO SCH (20:44)
[2018-10-29] MEDS: MICONAZOLE 2% POWDER (DESENEX AF) 90 GM TOP SCH (20:45)
--- NOTE | 2018-10-29 21:45 | NUR ---
Pt c/o burning in urethra, minimal urine output noted, [place] checked, no kinks noted, [place] irrigated with normal saline, moderate clot returned, instant increase in urine output in [place] and pt reports relief of pressure and burning sensation. Will continue to monitor.
[2018-10-30] VITALS (23 sets, daily range): BP systolic 100–144; BP diastolic 47–87
[2018-10-30] MEDS: HYDROcodone/APAP 5 MG/325 MG (LORTAB) TAB PO PRN ×2 (02:18→20:56)
[2018-10-30] MEDS: NS IV 1000 ML 1,000 ML IV SCH ×4 (04:04→19:43)
[2018-10-30] MEDS: ceFAZolin INJECTION 2,000 MG in NS (IVPB) 50 ML IV SCH ×3 (04:04→19:42)
[2018-10-30 04:09] LABS: BASOPHILS % (AUTO) 0 % (0-10); EOSINOPHILS # (AUTO) 0.2 10^3/uL (0.0-0.3); EOSINOPHILS % (AUTO) 2 % (0-10); HEMATOCRIT 43 % (40-54); HEMOGLOBIN 13.5 G/DL (13.3-17.7); LYMPHOCYTES # (AUTO) 1.2 X 10^3 (1.0-4.0); LYMPHOCYTES % (AUTO) 11 % (12-44); MEAN CORPUSCULAR HEMOGLOBIN 28 PG (25-34); MEAN CORPUSCULAR HGB CONC 32 G/DL (32-36); MEAN CORPUSCULAR VOLUME 89 FL (80-99); MEAN PLATELET VOLUME 10.5 FL (7.4-10.4); MONOCYTES # (AUTO) 0.7 X 10^3 (0.0-1.0); MONOCYTES % (AUTO) 7 % (0-12); NEUTROPHILS # (AUTO) 8.4 X 10^3 (1.8-7.8); NEUTROPHILS % (AUTO) 80 % (42-75); PLATELET COUNT 259 10^3/uL (130-400); RED CELL DISTRIBUTION WIDTH 14.9 % (10.0-14.5); WHITE BLOOD COUNT 10.6 10^3/uL (4.3-11.0)
[2018-10-30 04:40] LABS: CREATININE SERUM 2.36 MG/DL (0.60-1.30); MAGNESIUM 1.6 MG/DL (1.8-2.4); PHOSPHORUS 3.3 MG/DL (2.3-4.7); POTASSIUM 3.6 MMOL/L (3.6-5.0)
[2018-10-30] MEDS: MAGNESIUM 1 GM/100 ML IVPB 100 ML IV SCH (05:09)
[2018-10-30] MEDS: inSUlin ASPART (NovoLOG) 1 UNIT/0.01 ML (CHARGE PER UNIT) SC SCH ×4 (05:09→20:49)
[2018-10-30] MEDS: POTASSIUM CL 10MEQ/50ML IVPB 50 ML IV SCH ×4 (05:09→09:07)
[2018-10-30] MEDS: KCL 20 MEQ TAB (K-DUR) PO SCH (05:09)
--- NOTE | 2018-10-30 05:14 | Pulmonary Consultation ---
History of Present Illness History of Present Illness Date of Consultation 10/30/18 05:07 Time Seen by Provider: 05:07 Date of Admission History of Present Illness 63yo with hx of DM and morbid obesity, hypothyroid, CHF presented to ED secondary to fever of 102, abdominal rash, and ARF. He was placed on vanco, Zosyn then switched to Cefazolin secondary to renal function. Renal and continued to worsen despite IVF. UO is adequate. Pt has also been hypotensive. No prior hx like this in the past. Allergies and Home Medications Allergies Coded Allergies: meperidine (Verified Allergy, Unknown, 02/12/17) Uncoded Allergies: iv contrast (Adverse Reaction, Intermediate, 07/10/17) Home Medications Aspirin 81 Mg Tablet.dr, 81 MG PO DAILY, (Reported) Benazepril HCl 40 Mg Tab, 20 MG PO DAILY, (Reported) TAKES 1/2 (40MG) TABLET Cyanocobalamin (Vitamin B-12) 1,000 Mcg Tablet, 1,000 MCG PO DAILY, (Reported) Furosemide 40 Mg Tablet, 80 MG PO DAILY, (Reported) DAILY PRN FOR FLUID RETENTION Gabapentin 100 Mg Capsule, 100 MG PO DAILY, (Reported) Gabapentin 100 Mg Capsule, 300 MG PO HS, (Reported) Hydrocodone Bit/Acetaminophen 1 Tab Tab, 1 TAB PO BID PRN for PAIN-MODERATE, ( Reported) Levothyroxine Sodium 300 Mcg Tablet, 300 MCG PO DAILY, (Reported) Metformin HCl 500 Mg Tablet, 1,000 MG PO BID, (Reported) Metoprolol Succinate 100 Mg Tab.er.24h, 100 MG PO HS, (Reported) Metoprolol Succinate 200 Mg Tab.er.24h, 200 MG PO DAILY, (Reported) Omeprazole 20 Mg Capsule.dr, 20 MG PO DAILY, (Reported) Potassium Chloride 20 Meq Tab.er.prt, 20 MEQ PO DAILY, (Reported) Pravastatin Sodium 40 Mg Tablet, 20 MG PO HS, (Reported) Spironolactone 25 Mg Tablet, 25 MG PO DAILY, (Reported) DAILY PRN FOR FLUID RETENTION Topiramate 50 Mg Tablet, 25 MG PO BID, (Reported) Past Dbapthm-Darcsx-Jayaej Hx Past Med/Social Hx: Reviewed Nursing Past Med/Soc Hx Patient Social History Alcohol Use: Denies Use Recreational Drug Use: No Smoking Status: Former Smoker (1 PPD, QUIT ) Type Used: Cigarettes Former Smoker, Quit: Feb 13, 1987 2nd Hand Smoke Exposure: No Recent Foreign Travel: No Contact w/Someone Who Travel: No Recent Infectious Disease Expo: No Recent Hopitalizations: No Immunizations Up To Date Tetanus Booster (TDap): Unknown Date of Pneumonia Vaccine: Mar 29, 2017 Date of Influenza Vaccine: Mar 29, 2017 Seasonal Allergies Seasonal Allergies: No Past Medical History Surgeries: Yes (KNEE SURGERY, LEFT SHOULDER SURGERY, HERNIA REPAIR, ) Abdominal, Gallbladder, Orthopedic Respiratory: Yes (OBESITY-HYPOVENTILATION) Sleep Apnea, COPD Currently Using CPAP: Yes Currently Using BIPAP: No Cardiac: Yes (CHF) Cardiomyopathy, Chronic Edema/Swelling, Coronary Artery Disease, Heart Attack, High Cholesterol, Hypertension Neurological: Yes (TIA'S X 4; STROKE X 1) Neuropathy, Stroke, TIA Sexually Transmitted Disease: No HIV/AIDS: No Genitourinary: Yes Kidney Stones, Renal Failure Gastrointestinal: Yes Gastroesophageal Reflux Musculoskeletal: Yes (HIP FX; 2 TORN ROTATOR CUFFS; RIGHT HIP AND LOWER BACK PAIN ) Degenerate Disk Disease, Arthritis, Chronic Back Pain, Fractures Endocrine: Yes (MORBID OBESITY) Hypothyroidsim, Diabetes, Non-Insulin dep HEENT: Yes Cataract Cancer: No Psychosocial: No Integumentary: No Blood Disorders: No Adverse Reaction/Blood Tranf: No Family Medical History Cardiovascular disease 19 FATHER 19 MOTHER Diabetes mellitus 19 FATHER 19 MOTHER Hypercholesterolemia 19 FATHER 19 MOTHER Hypertension 19 FATHER 19 MOTHER Myocardial infarction 19 FATHER 19 MOTHER Heart Disease, Diabetes, Hypertension Review of Systems Time Seen by Provider: 05:38 Constitutional: Fever, Chills, Sweats, Weakness, Malaise, Other Eyes: No: Pain, Vision change, Conjunctivae inflammation, Eyelid inflammation, Other, Redness ENT: No: Ear pain, Ear discharge, Nose pain, Nose discharge, Nose congestion, Mouth pain, Mouth swelling, Throat pain, Throat swelling, Other Respiratory: Shortness of breath, SOB with excertion Cardiovascular: Palpitations; No: Chest Pain, Orthopnea, Paroxysmal Noc. Dyspnea, Edema, Lt Headedness, Other Gastrointestinal: No: Nausea, Vomiting, Abdominal Pain, Diarrhea, Constipation , Melena, Hematochezia, Other Genitourinary: No Dysuria, No Frequency, No Incontinence, No Hematuria, No Retention, No Other Musculoskeletal: No: other, neck pain, shoulder pain, arm pain, back pain, hand pain, leg pain, foot pain Neurological: Weakness, Incoordination Sepsis Event Evaluation Height, Weight, BMI Height: 6'2.00" Weight: 390lbs. 9.0oz. [id number]; 53.6 BMI Method:Stated Exam Exam Vital Signs Date Time Temp Pulse Resp B/P (MAP) Pulse Ox O2 Delivery O2 Flow Rate FiO2 10/30/18 04:04 98.9 10/30/18 04:00 67 14 100/47 (64) NIV CPAP 3.00 10/30/18 04:00 95 NIV CPAP 3.00 10/30/18 03:00 64 16 106/69 (81) NIV CPAP 3.00 10/30/18 02:13 67 23 116/59 (78) NIV CPAP 3.00 10/30/18 01:00 68 10/30/18 01:00 68 9 105/54 (71) NIV CPAP 3.00 10/30/18 00:00 66 24 109/59 (76) NIV CPAP 3.00 10/30/18 00:00 95 NIV CPAP 3.00 10/29/18 23:41 97.0 10/29/18 23:37 68 21 105/54 (71) NIV CPAP 3.00 10/29/18 23:00 67 17 90/37 (54) NIV CPAP 3.00 10/29/18 22:00 74 20 87/49 (62) NIV CPAP 3.00 10/29/18 21:00 73 20 127/70 (89) 94 NIV CPAP 3.00 10/29/18 20:56 97.1 NIV CPAP 3.00 10/29/18 20:30 98 Nasal Cannula 5.00 10/29/18 20:00 74 18 129/73 (91) 99 Nasal Cannula 5.00 10/29/18 20:00 95 Nasal Cannula 5.00 10/29/18 19:00 76 21 140/83 (102) 99 Nasal Cannula 5.00 10/29/18 19:00 68 10/29/18 17:00 66 117/71 (86) 99 Room Air 10/29/18 16:00 68 122/72 (89) Room Air 10/29/18 16:00 99 Nasal Cannula 3.00 10/29/18 13:53 68 10/29/18 12:00 99 Nasal Cannula 3.00 10/29/18 11:00 69 111/66 (81) 99 Room Air 10/29/18 10:00 71 114/72 (86) 99 Room Air 10/29/18 09:00 71 21 116/78 (91) 95 Room Air 10/29/18 08:43 93 NIV CPAP 3.50 10/29/18 08:00 66 35 104/58 (73) 95 NIV CPAP 3.50 10/29/18 08:00 96 Room Air 10/29/18 07:32 97.1 10/29/18 07:00 65 14 115/78 (90) 95 NIV CPAP 3.50 10/29/18 07:00 65 10/29/18 06:00 70 17 97/62 (74) 95 NIV CPAP 3.50 I & O 10/30/18 07:00 Intake Total 5390 ml Output Total 1640 ml Balance 3750 ml Height & Weight Height: 6'2.00" Weight: 390lbs. 9.0oz. 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, 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 Norm as Tested, Other (DECREASED SENSATION TO FEET ) Skin: Erythema, Rash, Other (Large area of the panniculus of the abdomen with edematous erythema and heat without blistering less intensity of erythema) Results Lab Laboratory Tests 10/28/18 10:07 10/28/18 15:50 10/28/18 19:27 10/29/18 03:20 10/30/18 03:55 Assessment/Plan Assessment/Plan Severe sepsis with septic shock secondary to Panniculitis -Currently on Keflex -IVF -Poor IV access -- will obtain PICC line -Arceo cultures neg thus far WENCESLAO on CKD stage 2 -No ACEI or ARB -NO NSAIDS -IVF -Monitor close Chronic systolic CHF secondary to dilated cardiomyopathy EF 30-35% Morbid obesity with RORY -Pt is using home CPAP Quit smoking DM II Chronic venous insuff MARIA ELENA GODINEZ DO October 30, 2018 05:14
[2018-10-30] MEDS ORDERED: SODIUM BICARB 8.4% 50 MEQ/50 ML (ABBOTT) SYR IV ONE (05:30)
[2018-10-30] MEDS: LACTATED RINGERS 1,000 ML IV SCH ×2 (05:53→07:58)
[2018-10-30] MEDS: LEVOTHYROXINE 150 MCG (LEVOTHROID) TAB PO SCH (05:54)
[2018-10-30 06:19] LABS: BILIRUBIN,URINE NEGATIVE (NEGATIVE); CLARITY,URINE SLIGHTLY CLOUDY; COLOR,URINE AMBER; GLUCOSE, URINE (UA) NEGATIVE (NEGATIVE); KETONES,URINE 1+ (NEGATIVE); LEUKOCYTE ESTERASE ,URINE 2+ (NEGATIVE); NITRITE,URINE NEGATIVE (NEGATIVE); PH,URINE 5 (5-9); PROTEIN,URINE 3+ (NEGATIVE); UROBILINOGEN,URINE NORMAL (NORMAL)
[2018-10-30 06:44] LABS: BACTERIA,URINE TRACE /HPF; RBC,URINE >100 /HPF
[2018-10-30 06:45] LABS: URIC ACID CRYSTALS,URINE MODERATE /LPF
[2018-10-30] MEDS: fluCOnazole (DIFLUCAN) 100 MG TAB PO SCH (09:05)
[2018-10-30] MEDS: GABAPENTIN 100 MG (NEURONTIN) CAP PO SCH (09:05)
[2018-10-30] MEDS: CYANOCOBALAMIN 1,000 MCG (VITAMIN B-12) TABLET PO SCH (09:05)
[2018-10-30] MEDS: toPIRamate 25 MG (TOPAMAX) TAB PO SCH ×2 (09:05→20:56)
[2018-10-30] MEDS: PANTOPRAZOLE 20 MG TABLET (PROTONIX) PO SCH (09:05)
[2018-10-30] MEDS: ENOXAPARIN 60 MG/0.6 ML (LOVENOX) SYR SC SCH ×2 (09:15→20:56)
[2018-10-30] MEDS: MICONAZOLE 2% POWDER (DESENEX AF) 90 GM TOP SCH ×2 (09:16→20:57)
--- NOTE | 2018-10-30 09:21 | Diagnostic Imaging Report ---
PROCEDURE: US abdomen complete. TECHNIQUE: Multiple real-time grayscale images were obtained over the abdomen in various projections. INDICATION: Renal failure, abdominal wall cellulitis. COMPARISON: None available. FINDINGS: Examination is limited due to patient's large body habitus and large volume of bowel gas. Allowing for this, the left kidney is normal in size measuring 11 cm in length and without hydronephrosis or shadowing calculi. The right kidney is very poorly visualized due to the above limitations. There is potential enlargement of the left hepatic lobe although assessment of the liver is also limited by patient body habitus. Assessment for focal hepatic lesion is not possible on this examination. No ascites is noted in the right upper quadrant. Per history, cholecystectomy has been performed. The pancreas is obscured by overlying bowel gas. Spleen is normal in size. Aorta and IVC are obscured by overlying bowel gas. IMPRESSION: 1. Very limited exam due to patient's body habitus and extensive bowel gas. 2. These limitations prohibit assessment of the right kidney. The left kidney is normal. 3. Potential hepatomegaly. 4. If further assessment is warranted, CT of the abdomen and pelvis will be performed. Dictated by: Dictated on workstation # [id number]
--- NOTE | 2018-10-30 09:22 | Diagnostic Imaging Report ---
EXAMINATION: Chest radiograph, portable AP view. DATE: October 30, 2018 at 0316 hours. INDICATION: 63-year-old male, sepsis. COMPARISON: October 27, 2018. FINDINGS: The patient is rotated. There is redemonstrated cardiomegaly. There is no identified pneumothorax. There is obscuration of visualization of the right hemidiaphragm. There are technical limitations of the exam relating to patient body habitus and difficulties with exposure. There are opacities projecting in the lateral aspect of the left upper lobe which are new. There is nonspecific airspace consolidation in the right lung with interval increase since the comparison exam. IMPRESSION: 1. Marked technical limitations of the exam. 2. Probable airspace consolidation and/or right pleural fluid in the right lung. 3. New opacities in the lateral aspect of the left upper lobe which also may relate to an alveolar consolidative process. 4. Given the extent of technical limitations, either a properly performed PA and lateral chest radiograph series or a CT chest would be recommended for further assessment. Dictated by: Dictated on workstation # [id number]
--- NOTE | 2018-10-30 09:32 | Progress Note-Cardiology ---
Cardiology SOAP Progress Note Subjective: No cp or palp or syncope Shortness of breath at usual baseline Abdominal wall discomfort modestly improved Objective: I&O/Vital Signs 10/29/18 10/29/18 10/29/18 10/29/18 22:00 23:00 23:37 23:41 Temp 97.0 Pulse 74 67 68 Resp 20 17 21 B/P (MAP) 87/49 (62) 90/37 (54) 105/54 (71) O2 Delivery NIV CPAP NIV CPAP NIV CPAP O2 Flow Rate 3.00 3.00 3.00 10/30/18 10/30/18 10/30/18 10/30/18 00:00 00:00 01:00 01:00 Pulse 66 68 68 Resp 24 9 B/P (MAP) 109/59 (76) 105/54 (71) Pulse Ox 95 O2 Delivery NIV CPAP NIV CPAP NIV CPAP O2 Flow Rate 3.00 3.00 3.00 10/30/18 10/30/18 10/30/18 10/30/18 02:13 03:00 04:00 04:00 Pulse 67 64 67 Resp 23 16 14 B/P (MAP) 116/59 (78) 106/69 (81) 100/47 (64) Pulse Ox 95 O2 Delivery NIV CPAP NIV CPAP NIV CPAP NIV CPAP O2 Flow Rate 3.00 3.00 3.00 3.00 10/30/18 10/30/18 10/30/18 10/30/18 04:04 05:00 06:00 07:00 Temp 98.9 Pulse 72 73 67 Resp 18 28 B/P (MAP) 102/87 (92) O2 Delivery NIV CPAP NIV CPAP O2 Flow Rate 3.00 3.00 10/30/18 09:00 Temp 95.9 Pulse 74 Resp 18 B/P (MAP) 135/83 (100) Pulse Ox 99 O2 Flow Rate 2.00 10/30/18 00:00 Intake Total 2690 ml Output Total 740 ml Balance 1950 ml Weight (Pounds): 441 Weight (Ounces): 5.0 Weight (Calculated Kilograms): 200.994990 Constitutional: AAO x 3, well-developed, well-nourished, other (morbid obesity) Respiratory: No accessory muscle use; other (fair bilat air enty, diminished at the bases) Cardiovascular: regular rate-rhythm, S1 and S2, systolic murmur (faint MANUEL at card base) Gastrointestional: No tender; soft; No guarding; rebound, other (marked redness of infra-umbilical abdominal wall and the inguinal region with mild swelling) Extremities: other (reddish-blue discoloration of the legs and feet); No clubbing, No cyanosis; significant edema (moderate, bilat leg edema that is pitting and non-pitting) Neurologic/Psychiatric: oriented x 3, grossly intact, power is 5/5 both on sides Skin: other (see above under GI and Extremities exam) Results/Procedures: Labs Laboratory Tests 10/29/18 11:28: Glucometer 222H 10/29/18 16:15: Glucometer 218H 10/29/18 20:43: Glucometer 233H 10/30/18 03:55: White Blood Count 10.6, Red Blood Count 4.83, Hemoglobin 13.5, Hematocrit 43, Mean Corpuscular Volume 89, Mean Corpuscular Hemoglobin 28, Mean Corpuscular Hemoglobin Concent 32, Red Cell Distribution Width 14.9H, Platelet Count 259, Mean Platelet Volume 10.5H, Neutrophils (%) (Auto) 80H, Lymphocytes (%) (Auto) 11L, Monocytes (%) (Auto) 7, Eosinophils (%) (Auto) 2, Basophils (%) (Auto) 0, Neutrophils # (Auto) 8.4H, Lymphocytes # (Auto) 1.2, Monocytes # (Auto) 0.7, Eosinophils # (Auto) 0.2, Basophils # (Auto) 0.0, Sodium Level 133L, Potassium Level 3.6, Chloride Level 105, Carbon Dioxide Level 16L, Anion Gap 12, Blood Urea Nitrogen 37H, Creatinine 2.36H, Estimat Glomerular Filtration Rate 28, BUN/ Creatinine Ratio 16, Glucose Level 184H, Calcium Level 8.0L, Phosphorus Level 3.3, Magnesium Level 1.6L 10/30/18 06:05: Urine Color AMBERH, Urine Clarity SLIGHTLY CLOUDY, Urine pH 5, Urine Specific [place] 1.020, Urine Protein 3+H, Urine Glucose (UA) NEGATIVE, Urine Ketones 1+H , Urine Nitrite NEGATIVE, Urine Bilirubin NEGATIVE, Urine Urobilinogen NORMAL, Urine Leukocyte Esterase 2+H, Urine RBC (Auto) 5+H, Urine RBC >100H, Urine WBC 2 -5, Urine Squamous Epithelial Cells 2-5, Urine Crystals PRESENTH, Urine Uric Acid Crystals MODERATEH, Urine Bacteria TRACE, Urine Casts NONE, Urine Mucus NEGATIVE, Urine Culture Indicated YES Microbiology 10/27/18 Blood Culture - Preliminary, Resulted No growth 10/29/18 C. difficile GDH Antigen & Toxins - Final, Complete 10/27/18 Urine Culture - Final, Complete NO GROWTH Laboratory Tests 10/28/18 10:07 10/28/18 15:50 10/28/18 19:27 10/29/18 03:20 10/30/18 03:55 A/P: Assessment: Acute panniculits with sepsis and septic shock WENCESLAO stage 2 superimposed on CKD stage 2 Chronic systolic CHF due to dilated cardiomyopathy. Echo of 10/29/18: LVEF 30-5%, AoV scl w/o stenoses, PASP 25 mmHg MPI on 02/14/17: LVEF 30%, mod cardiomegaly, no distinct evidence of ischemia or infarction Morbid obesity with obesity-hypoventilation and RORY syndrome Quit smoking in the 1980s DM II with diabetic nephropathy Hyperlipidemia, by history Chronic back pain Chronic leg swelling, likely related to venous insuff Symptoms of claudication, but seg pressures of 09/01/17 did not show any significant obstructive disease of the legs Plan: * Severely ill * iv fluids to manage septic shock * Antibiotic therapy as directed by the Med Svce * Follow labs, in particular his renal function * Hold off on nephrotoxic agents, such as ARBs and CYRUS-inhib * Monitor for clinical heart failure * WENCESLAO and panniculitis appear slightly improved, but not resolved LANCE TAPIA MD FACP [facility] CCDS October 30, 2018 09:32
--- NOTE | 2018-10-30 14:42 | Diagnostic Imaging Report ---
INDICATION: New PICC line placement. COMPARISON: 10/30/2018. FINDINGS: Two frontal radiographic views of the chest were obtained and demonstrate interval placement of a left upper extremity PICC line, the tip of which terminates near the junction of the innominate veins. The heart size remains moderately enlarged. The pulmonary vasculature is within normal limits. There is a probable small right basilar effusion. No large effusion is seen on the left. There is no pneumothorax on either side. The bony structures show no gross acute abnormalities. IMPRESSION: 1. New left upper extremity PICC line, the tip of which terminates near the junction of the innominate veins. 2. Persistent moderate cardiomegaly. 3. Small right effusion. Dictated by: Dictated on workstation # [id number]
--- NOTE | 2018-10-30 15:32 | Progress Note ---
Subjective Date Seen by a Provider: October 30, 2018 Time Seen by a Provider: 15:28 Subjective/Events-last exam Patient seen and examined at bedside today with no acute events overnight. IV ABx treatment continued with Ceftazoline, switched from Vancomycin due to effect on kidneys. He had 1 BM this morning and is able to pass gas. Patient states that he continues to feel better each day. He denies any abdominal pain, chest pain, shortness of breath, subjective fever, N/V/D and headache. States erythema less intense and feels better. WBC going down. Focused Exam Lactate Level 10/28/18 13:38: Lactic Acid Level 2.00 Objective Exam Vital Signs Date Time Temp Pulse Resp B/P (MAP) Pulse Ox O2 Delivery O2 Flow Rate FiO2 10/30/18 12:35 95.4 81 17 133/83 (100) 98 Nasal Cannula 2.00 10/30/18 12:00 98 Nasal Cannula 2.00 10/30/18 11:00 79 14 120/73 (89) Nasal Cannula 2.00 10/30/18 10:00 80 20 131/69 (89) Nasal Cannula 2.00 10/30/18 09:00 95.9 74 18 135/83 (100) 99 Nasal Cannula 2.00 10/30/18 08:00 70 17 120/68 (85) NIV CPAP 3.00 10/30/18 08:00 100 Nasal Cannula 2.00 10/30/18 07:00 67 10/30/18 07:00 67 16 113/59 (77) NIV CPAP 3.00 10/30/18 06:00 73 28 102/87 (92) NIV CPAP 3.00 10/30/18 05:00 72 18 NIV CPAP 3.00 10/30/18 04:04 98.9 10/30/18 04:00 67 14 100/47 (64) NIV CPAP 3.00 10/30/18 04:00 95 NIV CPAP 3.00 10/30/18 03:00 64 16 106/69 (81) NIV CPAP 3.00 10/30/18 02:13 67 23 116/59 (78) NIV CPAP 3.00 10/30/18 01:00 68 10/30/18 01:00 68 9 105/54 (71) NIV CPAP 3.00 10/30/18 00:00 66 24 109/59 (76) NIV CPAP 3.00 10/30/18 00:00 95 NIV CPAP 3.00 10/29/18 23:41 97.0 10/29/18 23:37 68 21 105/54 (71) NIV CPAP 3.00 10/29/18 23:00 67 17 90/37 (54) NIV CPAP 3.00 10/29/18 22:00 74 20 87/49 (62) NIV CPAP 3.00 10/29/18 21:00 73 20 127/70 (89) 94 NIV CPAP 3.00 10/29/18 20:56 97.1 NIV CPAP 3.00 10/29/18 20:30 98 Nasal Cannula 5.00 10/29/18 20:00 74 18 129/73 (91) 99 Nasal Cannula 5.00 10/29/18 20:00 95 Nasal Cannula 5.00 10/29/18 19:00 76 21 140/83 (102) 99 Nasal Cannula 5.00 10/29/18 19:00 68 10/29/18 17:00 66 117/71 (86) 99 Room Air 10/29/18 16:00 68 122/72 (89) Room Air 10/29/18 16:00 99 Nasal Cannula 3.00 I & O 10/30/18 07:00 Intake Total 5710 ml Output Total 1915 ml Balance 3795 ml Capillary Refill : Less Than 3 Seconds General Appearance: No Apparent Distress, Chronically ill, Obese HEENT: PERRL/EOMI, Normal ENT Inspection Neck: Normal Inspection, Non Tender Respiratory: Chest Non Tender, No Accessory Muscle Use, No Respiratory Distress Cardiovascular: Regular Rate, Rhythm, No Gallop Gastrointestinal: non tender, soft, other (Erythema in bilateral lower abdominal quadrants with large panniculus that is extremely indurated no areas of fluctuance less intensity of erythema) Extremity: Inflammation, Pedal Edema Neurologic/Psychiatric: Alert, Oriented x3, Normal Mood/Affect, circular head saw operator II-XII Norm as Tested, Other (DECREASED SENSATION TO FEET ) Skin: Erythema, Rash, Other (Large area of the panniculus of the abdomen with edematous erythema and heat without blistering less intensity of erythema) Results Lab Laboratory Tests 10/29/18 16:15: Glucometer 218H 10/29/18 20:43: Glucometer 233H 10/30/18 03:55: White Blood Count 10.6, Red Blood Count 4.83, Hemoglobin 13.5, Hematocrit 43, Mean Corpuscular Volume 89, Mean Corpuscular Hemoglobin 28, Mean Corpuscular Hemoglobin Concent 32, Red Cell Distribution Width 14.9H, Platelet Count 259, Mean Platelet Volume 10.5H, Neutrophils (%) (Auto) 80H, Lymphocytes (%) (Auto) 11L, Monocytes (%) (Auto) 7, Eosinophils (%) (Auto) 2, Basophils (%) (Auto) 0, Neutrophils # (Auto) 8.4H, Lymphocytes # (Auto) 1.2, Monocytes # (Auto) 0.7, Eosinophils # (Auto) 0.2, Basophils # (Auto) 0.0, Sodium Level 133L, Potassium Level 3.6, Chloride Level 105, Carbon Dioxide Level 16L, Anion Gap 12, Blood Urea Nitrogen 37H, Creatinine 2.36H, Estimat Glomerular Filtration Rate 28, BUN/ Creatinine Ratio 16, Glucose Level 184H, Calcium Level 8.0L, Phosphorus Level 3.3, Magnesium Level 1.6L 10/30/18 06:05: Urine Color AMBERH, Urine Clarity SLIGHTLY CLOUDY, Urine pH 5, Urine Specific [place] 1.020, Urine Protein 3+H, Urine Glucose (UA) NEGATIVE, Urine Ketones 1+H , Urine Nitrite NEGATIVE, Urine Bilirubin NEGATIVE, Urine Urobilinogen NORMAL, Urine Leukocyte Esterase 2+H, Urine RBC (Auto) 5+H, Urine RBC >100H, Urine WBC 2 -5, Urine Squamous Epithelial Cells 2-5, Urine Crystals PRESENTH, Urine Uric Acid Crystals MODERATEH, Urine Bacteria TRACE, Urine Casts NONE, Urine Mucus NEGATIVE, Urine Culture Indicated YES 10/30/18 11:35: Glucometer 172H Microbiology 10/27/18 Blood Culture - Preliminary, Resulted No growth 10/29/18 C. difficile GDH Antigen & Toxins - Final, Complete 10/27/18 Urine Culture - Final, Complete NO GROWTH Assessment/Plan Assessment/Plan Assessment/Plan Panniculitis Sepsis secondary to panniculitis (resolved) Diabetes Morbid obesity Acute renal failure No surgical intervention recommended at this time continue abx Continue to follow No evidence of Necrotizing fasciitis Clinical Quality Measures DVT/VTE Risk/Contraindication: Risk Factor Score Per Nursin RFS Level Per Nursing on Admit: 4+=Very High Supervisory-Addendum Brief Supervisory Addendum Participated in pt care: history, MDM, physical Personally performed: exam, history, MDM, supervision of care Care discussed with: other Results interpretation: agree with documentation Notes: Patient seen and evaluated with MARIA C Huitron RESIDENT October 30, 2018 15:32 KEVIN SANTIAGO DO October 30, 2018 19:39
--- NOTE | 2018-10-30 16:15 | Progress Note-Hospitalist ---
Progress Note Progress Notes/Assess & Plan Date Seen 10/30/18 Time Seen by Provider: 16:12 Assessment & Plan The patient reports that he is feeling comfortable. There is no particular pain. He is noted that his feet and lower legs have taken on a reddish color today. It is noted that he is afebrile. The white count has fallen from 15 3- 10.6. Physical exam: lungs are clear to auscultation. CV is regular without murmur. Abdomen is quite large. The lower abdomen continues to fade in color and now is a pale pink. There is an upper band about 10 cm in the vertical axis which is less red than yesterday but still more inflamed than the remainder of the belly. The lower extremities show asymmetric erythema to just below the knee bilaterally. There is some edema in the feet and ankles. This most resembles venous stasis dermatitis. Impression: Panniculitis with evidence of improvement. 2.morbid obesity. Plan: Continue present antibiotics. Focused Exam Lactate Level 10/28/18 13:38: Lactic Acid Level 2.00 LONG PLASCENCIA MD October 30, 2018 16:15
[2018-10-30] MEDS: GABAPENTIN 300 MG (NEURONTIN) CAP PO SCH (20:56)
[2018-10-31] VITALS (11 sets, daily range): BP systolic 117–145; BP diastolic 64–83
[2018-10-31] MEDS: NS IV 1000 ML 1,000 ML IV SCH ×2 (02:50→20:40)
[2018-10-31] MEDS: ceFAZolin INJECTION 2,000 MG in NS (IVPB) 50 ML IV SCH ×3 (03:25→20:38)
[2018-10-31 03:37] LABS: BASOPHILS % (AUTO) 0 % (0-10); EOSINOPHILS # (AUTO) 0.2 10^3/uL (0.0-0.3); EOSINOPHILS % (AUTO) 2 % (0-10); HEMATOCRIT 40 % (40-54); HEMOGLOBIN 12.6 G/DL (13.3-17.7); LYMPHOCYTES # (AUTO) 1.2 X 10^3 (1.0-4.0); LYMPHOCYTES % (AUTO) 14 % (12-44); MEAN CORPUSCULAR HEMOGLOBIN 28 PG (25-34); MEAN CORPUSCULAR HGB CONC 31 G/DL (32-36); MEAN CORPUSCULAR VOLUME 90 FL (80-99); MEAN PLATELET VOLUME 10.1 FL (7.4-10.4); MONOCYTES # (AUTO) 0.6 X 10^3 (0.0-1.0); MONOCYTES % (AUTO) 8 % (0-12); NEUTROPHILS # (AUTO) 6.3 X 10^3 (1.8-7.8); NEUTROPHILS % (AUTO) 76 % (42-75); PLATELET COUNT 225 10^3/uL (130-400); RED CELL DISTRIBUTION WIDTH 14.9 % (10.0-14.5); WHITE BLOOD COUNT 8.4 10^3/uL (4.3-11.0)
[2018-10-31 03:55] LABS: CREATININE SERUM 1.91 MG/DL (0.60-1.30); MAGNESIUM 1.6 MG/DL (1.8-2.4); PHOSPHORUS 2.9 MG/DL (2.3-4.7); POTASSIUM 3.7 MMOL/L (3.6-5.0)
[2018-10-31] MEDS: KCL 20 MEQ TAB (K-DUR) PO SCH (04:14)
[2018-10-31] MEDS: MAGNESIUM 1 GM/100 ML IVPB 100 ML IV SCH ×3 (04:14→05:13)
[2018-10-31] MEDS: POTASSIUM CL 10MEQ/50ML IVPB 50 ML IV SCH (04:14)
[2018-10-31] MEDS: inSUlin ASPART (NovoLOG) 1 UNIT/0.01 ML (CHARGE PER UNIT) SC SCH ×4 (04:14→21:01)
--- NOTE | 2018-10-31 05:21 | Pulmonary Progress Note ---
Subjective Time Seen by a Provider: 05:19 Subjective/Events-last exam Pt appears to be improving however still extensive cellulitis. Sepsis Event Evaluation Height, Weight, BMI Height: 6'2.00" Weight: 441lbs. 5.0oz. 200.328836wa; 53.6 BMI Method:Stated Focused Exam Lactate Level 10/28/18 13:38: Lactic Acid Level 2.00 Exam Exam Vital Signs Date Time Temp Pulse Resp B/P (MAP) Pulse Ox O2 Delivery O2 Flow Rate FiO2 10/31/18 05:00 84 16 119/77 (91) 90 NIV CPAP 2.00 10/31/18 04:00 80 22 131/66 (87) 94 NIV CPAP 2.00 10/31/18 03:30 97.8 94 NIV CPAP 2.00 10/31/18 03:30 93 NIV CPAP 2.00 10/31/18 03:00 78 19 138/76 (96) 97 NIV CPAP 2.00 10/31/18 02:00 77 16 124/78 (93) 95 NIV CPAP 2.00 10/31/18 01:03 75 10/31/18 01:00 75 17 119/83 (95) 95 NIV CPAP 2.00 10/31/18 00:00 80 13 122/64 (83) NIV CPAP 2.00 10/30/18 23:10 99 NIV CPAP 2.00 10/30/18 23:10 98.2 NIV CPAP 2.00 10/30/18 23:00 78 16 129/74 (92) 95 NIV CPAP 2.00 10/30/18 22:00 71 18 122/69 (86) NIV CPAP 2.00 10/30/18 21:05 NIV CPAP 2.00 10/30/18 21:00 81 12 108/64 (79) Room Air 10/30/18 20:32 Nasal Cannula 2.00 10/30/18 20:00 78 19 129/77 (94) 95 Room Air 10/30/18 19:40 99 Room Air 10/30/18 19:36 99 Room Air 10/30/18 19:30 98.3 82 16 125/71 (89) 99 Nasal Cannula 2.00 10/30/18 19:00 80 10/30/18 18:00 87 18 121/65 (83) Nasal Cannula 2.00 10/30/18 17:00 83 19 126/67 (86) Nasal Cannula 2.00 10/30/18 16:00 100 Nasal Cannula 2.00 10/30/18 16:00 76 18 121/58 (79) 99 Nasal Cannula 2.00 10/30/18 16:00 96.8 10/30/18 15:26 84 10/30/18 15:00 78 26 124/78 (93) 98 Nasal Cannula 2.00 10/30/18 14:00 75 26 144/72 (96) 99 Nasal Cannula 2.00 10/30/18 13:00 82 20 125/87 (100) 94 Nasal Cannula 2.00 10/30/18 12:35 95.4 81 17 133/83 (100) 98 Nasal Cannula 2.00 10/30/18 12:00 98 Nasal Cannula 2.00 10/30/18 11:00 79 14 120/73 (89) Nasal Cannula 2.00 10/30/18 10:00 80 20 131/69 (89) Nasal Cannula 2.00 10/30/18 09:00 95.9 74 18 135/83 (100) 99 Nasal Cannula 2.00 10/30/18 08:00 70 17 120/68 (85) NIV CPAP 3.00 10/30/18 08:00 100 Nasal Cannula 2.00 10/30/18 07:00 67 10/30/18 07:00 67 16 113/59 (77) NIV CPAP 3.00 10/30/18 06:00 73 28 102/87 (92) NIV CPAP 3.00 I & O 10/31/18 07:00 Intake Total 5075 ml Output Total 1600 ml Balance 3475 ml Height & Weight Height: 6'2.00" Weight: 441lbs. 5.0oz. 200.958948ql; 53.6 BMI Method:Stated General Appearance: No Apparent Distress, Chronically ill, Obese HEENT: PERRL/EOMI, Normal ENT Inspection Neck: Normal Inspection, Non Tender Respiratory: Chest Non Tender, No Accessory Muscle Use, No Respiratory Distress Cardiovascular: Regular Rate, Rhythm, No Gallop Capillary Refill: Less Than 3 Seconds Gastrointestinal: non tender, soft, other (Erythema in bilateral lower abdominal quadrants with large panniculus that is extremely indurated no areas of fluctuance less intensity of erythema) Extremity: Inflammation, Pedal Edema Neurologic/Psychiatric: Alert, Oriented x3, Normal Mood/Affect, outpatient dietitian II-XII Norm as Tested, Other (DECREASED SENSATION TO FEET ) Skin: Erythema, Rash, Other (Large area of the panniculus of the abdomen with edematous erythema and heat without blistering less intensity of erythema) Results Lab Laboratory Tests 10/30/18 03:55 10/31/18 03:30 Assessment/Plan Assessment/Plan Severe sepsis with septic shock secondary to Panniculitis -Currently on Keflex -IVF -Poor IV access -- will obtain PICC line -Arceo cultures neg thus far WENCESLAO on CKD stage 2 -No ACEI or ARB -NO NSAIDS -IVF -Monitor close Chronic systolic CHF secondary to dilated cardiomyopathy EF 30-35% Morbid obesity with RORY -Pt is using home CPAP Quit smoking DM II Chronic venous insuff MARIA ELENA GODINEZ DO October 31, 2018 05:21
[2018-10-31] MEDS ORDERED: MAGNESIUM 1 GM/100 ML IVPB 100 ML IV ONE (06:15)
[2018-10-31] MEDS: LEVOTHYROXINE 150 MCG (LEVOTHROID) TAB PO SCH (06:17)
--- NOTE | 2018-10-31 07:02 | Diagnostic Imaging Report ---
Indication: Respiratory distress. Upright portable chest shows cardiomegaly with no failure. The lungs are clear. There is no effusion or pneumothorax. There is no acute bony abnormality. There is no change from 10/30/2018. Impression: Cardiomegaly with no failure. Stable chest. Dictated by: Dictated on workstation # [id number]
[2018-10-31] MEDS: ENOXAPARIN 60 MG/0.6 ML (LOVENOX) SYR SC SCH ×2 (07:50→20:40)
[2018-10-31] MEDS: toPIRamate 25 MG (TOPAMAX) TAB PO SCH ×2 (07:50→20:39)
[2018-10-31] MEDS: PANTOPRAZOLE 20 MG TABLET (PROTONIX) PO SCH (07:50)
[2018-10-31] MEDS: CYANOCOBALAMIN 1,000 MCG (VITAMIN B-12) TABLET PO SCH (07:50)
[2018-10-31] MEDS: GABAPENTIN 100 MG (NEURONTIN) CAP PO SCH (07:50)
[2018-10-31] MEDS: MICONAZOLE 2% POWDER (DESENEX AF) 90 GM TOP SCH ×2 (07:53→20:41)
[2018-10-31] MEDS: fluCOnazole (DIFLUCAN) 100 MG TAB PO SCH (07:55)
--- NOTE | 2018-10-31 08:52 | Progress Note ---
Subjective Date Seen by a Provider: October 31, 2018 Time Seen by a Provider: 08:25 Subjective/Events-last exam Patient seen and examined at bedside this morning with no acute events overnight. He states that he feels better each day with improvement of symptoms. He denies abd pain, N/V/D, CP, BENAVIDES, fever, and weakness. Focused Exam Lactate Level 10/28/18 13:38: Lactic Acid Level 2.00 Objective Exam Vital Signs Date Time Temp Pulse Resp B/P (MAP) Pulse Ox O2 Delivery O2 Flow Rate FiO2 10/31/18 07:56 96 Room Air 10/31/18 07:55 98.6 94 22 141/73 (95) 96 Room Air 10/31/18 06:56 Nasal Cannula 2.00 10/31/18 06:00 96 15 126/72 (90) 92 NIV CPAP 2.00 10/31/18 05:00 84 16 119/77 (91) 90 NIV CPAP 2.00 10/31/18 04:00 80 22 131/66 (87) 94 NIV CPAP 2.00 10/31/18 03:30 97.8 94 NIV CPAP 2.00 10/31/18 03:30 93 NIV CPAP 2.00 10/31/18 03:00 78 19 138/76 (96) 97 NIV CPAP 2.00 10/31/18 02:00 77 16 124/78 (93) 95 NIV CPAP 2.00 10/31/18 01:03 75 10/31/18 01:00 75 17 119/83 (95) 95 NIV CPAP 2.00 10/31/18 00:00 80 13 122/64 (83) NIV CPAP 2.00 10/30/18 23:10 99 NIV CPAP 2.00 10/30/18 23:10 98.2 NIV CPAP 2.00 10/30/18 23:00 78 16 129/74 (92) 95 NIV CPAP 2.00 10/30/18 22:00 71 18 122/69 (86) NIV CPAP 2.00 10/30/18 21:05 NIV CPAP 2.00 10/30/18 21:00 81 12 108/64 (79) Room Air 10/30/18 20:32 Nasal Cannula 2.00 10/30/18 20:00 78 19 129/77 (94) 95 Room Air 10/30/18 19:40 99 Room Air 10/30/18 19:36 99 Room Air 10/30/18 19:30 98.3 82 16 125/71 (89) 99 Nasal Cannula 2.00 10/30/18 19:00 80 10/30/18 18:00 87 18 121/65 (83) Nasal Cannula 2.00 10/30/18 17:00 83 19 126/67 (86) Nasal Cannula 2.00 10/30/18 16:00 100 Nasal Cannula 2.00 10/30/18 16:00 76 18 121/58 (79) 99 Nasal Cannula 2.00 10/30/18 16:00 96.8 10/30/18 15:26 84 10/30/18 15:00 78 26 124/78 (93) 98 Nasal Cannula 2.00 10/30/18 14:00 75 26 144/72 (96) 99 Nasal Cannula 2.00 10/30/18 13:00 82 20 125/87 (100) 94 Nasal Cannula 2.00 10/30/18 12:35 95.4 81 17 133/83 (100) 98 Nasal Cannula 2.00 10/30/18 12:00 98 Nasal Cannula 2.00 10/30/18 11:00 79 14 120/73 (89) Nasal Cannula 2.00 10/30/18 10:00 80 20 131/69 (89) Nasal Cannula 2.00 10/30/18 09:00 95.9 74 18 135/83 (100) 99 Nasal Cannula 2.00 I & O 10/31/18 07:00 Intake Total 5425 ml Output Total 1985 ml Balance 3440 ml Capillary Refill : Less Than 3 Seconds General Appearance: No Apparent Distress, Chronically ill, Obese HEENT: PERRL/EOMI, Normal ENT Inspection Neck: Normal Inspection, Non Tender Respiratory: Chest Non Tender, No Accessory Muscle Use, No Respiratory Distress Cardiovascular: Regular Rate, Rhythm, No Gallop Gastrointestinal: non tender, soft, other (Erythema in bilateral lower abdominal quadrants with large panniculus that is extremely indurated no areas of fluctuance less intensity of erythema) Extremity: Inflammation, Pedal Edema Neurologic/Psychiatric: Alert, Oriented x3, Normal Mood/Affect, purchasing specialist II-XII Norm as Tested, Other (DECREASED SENSATION TO FEET ) Skin: Erythema, Rash, Other (Large area of the panniculus of the abdomen with edematous erythema and heat without blistering less intensity of erythema) Results Lab Laboratory Tests 10/30/18 11:35: Glucometer 172H 10/30/18 15:59: Glucometer 180H 10/30/18 20:49: Glucometer 187H 10/31/18 03:30: White Blood Count 8.4, Red Blood Count 4.48, Hemoglobin 12.6L, Hematocrit 40, Mean Corpuscular Volume 90, Mean Corpuscular Hemoglobin 28, Mean Corpuscular Hemoglobin Concent 31L, Red Cell Distribution Width 14.9H, Platelet Count 225, Mean Platelet Volume 10.1, Neutrophils (%) (Auto) 76H, Lymphocytes (%) (Auto) 14 , Monocytes (%) (Auto) 8, Eosinophils (%) (Auto) 2, Basophils (%) (Auto) 0, Neutrophils # (Auto) 6.3, Lymphocytes # (Auto) 1.2, Monocytes # (Auto) 0.6, Eosinophils # (Auto) 0.2, Basophils # (Auto) 0.0, Sodium Level 140, Potassium Level 3.7, Chloride Level 109H, Carbon Dioxide Level 17L, Anion Gap 14, Blood Urea Nitrogen 30H, Creatinine 1.91H, Estimat Glomerular Filtration Rate 36, BUN/ Creatinine Ratio 16, Glucose Level 166H, Calcium Level 8.0L, Phosphorus Level 2.9, Magnesium Level 1.6L Microbiology 10/27/18 Blood Culture - Preliminary, Resulted No growth 10/29/18 C. difficile GDH Antigen & Toxins - Final, Complete 10/27/18 Urine Culture - Final, Complete NO GROWTH Assessment/Plan Assessment/Plan Assessment/Plan Panniculitis Sepsis secondary to panniculitis (resolved) Diabetes Morbid obesity Acute renal failure No surgical intervention recommended at this time continue abx Continue to follow No evidence of Necrotizing fasciitis Clinical Quality Measures DVT/VTE Risk/Contraindication: Risk Factor Score Per Nursin RFS Level Per Nursing on Admit: 4+=Very High Supervisory-Addendum Brief Supervisory Addendum Participated in pt care: history, MDM, physical Personally performed: exam, history, MDM, supervision of care Results interpretation: agree with documentation MARIA C CORTES RESIDENT October 31, 2018 08:51 KEVIN SANTIAGO DO October 31, 2018 14:29
[2018-10-31] MEDS: ONDANSETRON 4 MG/2 ML (SDV) Z0FRAN IV PRN ×2 (10:10→10:11)
--- NOTE | 2018-10-31 10:30 | NUR ---
pt to room 427 via barri bed and introduced to the room and call system. at bedside. report given to Melvi DAMON.
--- NOTE | 2018-10-31 10:31 | NUR ---
RECEIVED REPORT FROM TRIP DAMON, PATIENT ALERT, DU PATENT WITH CLEAR YELLOW URINE, C/O BACK PAIN, DENIES NEED FOR PAIN MEDICATION, LOWER LEGS EDEMATOUS AND RED, ABD RED, PICC LINE WITHOUT REDNESS OR SWELLING, NS INFUSING AT 75ML HOUR, CALL LIGHT WITHIN REACH
[2018-10-31] MEDS: ACETAMINOPHEN 500 MG TAB (TYLENOL) PO PRN (11:53)
--- NOTE | 2018-10-31 13:16 | Progress Note-Cardiology ---
Cardiology SOAP Progress Note Subjective: No cp or palp or syncope or shortness of breath at rest Objective: I&O/Vital Signs 10/31/18 10/31/18 10/31/18 10/31/18 02:00 03:00 03:30 03:30 Temp 97.8 Pulse 77 78 Resp 16 19 B/P (MAP) 124/78 (93) 138/76 (96) Pulse Ox 95 97 93 94 O2 Delivery NIV CPAP NIV CPAP NIV CPAP NIV CPAP O2 Flow Rate 2.00 2.00 2.00 2.00 10/31/18 10/31/18 10/31/18 10/31/18 04:00 05:00 06:00 06:56 Pulse 80 84 96 Resp 22 16 15 B/P (MAP) 131/66 (87) 119/77 (91) 126/72 (90) Pulse Ox 94 90 92 O2 Delivery NIV CPAP NIV CPAP NIV CPAP Nasal Cannula O2 Flow Rate 2.00 2.00 2.00 2.00 10/31/18 10/31/18 10/31/18 10/31/18 07:55 07:56 11:09 12:00 Temp 98.6 98.6 Pulse 94 104 Resp 22 22 B/P (MAP) 141/73 (95) 143/77 (99) Pulse Ox 96 96 97 90 O2 Delivery Room Air Room Air Room Air Room Air 10/31/18 00:00 Intake Total 3670 ml Output Total 625 ml Balance 3045 ml Weight (Pounds): 450 Weight (Ounces): 8.0 Weight (Calculated Kilograms): 204.438971 Constitutional: AAO x 3, well-developed, well-nourished, other (morbid obesity) Respiratory: No accessory muscle use; other (fair bilat air enty, diminished at the bases) Cardiovascular: regular rate-rhythm, S1 and S2, systolic murmur (faint MANUEL at card base) Gastrointestional: No tender; soft; No guarding; rebound, other (marked redness of infra-umbilical abdominal wall and the inguinal region with mild swelling) Extremities: other (reddish-blue discoloration of the legs and feet); No clubbing, No cyanosis; significant edema (moderate, bilat leg edema that is pitting and non-pitting) Neurologic/Psychiatric: oriented x 3, grossly intact, power is 5/5 both on sides Skin: other (see above under GI and Extremities exam) Results/Procedures: Labs Laboratory Tests 10/30/18 15:59: Glucometer 180H 10/30/18 20:49: Glucometer 187H 10/31/18 03:30: White Blood Count 8.4, Red Blood Count 4.48, Hemoglobin 12.6L, Hematocrit 40, Mean Corpuscular Volume 90, Mean Corpuscular Hemoglobin 28, Mean Corpuscular Hemoglobin Concent 31L, Red Cell Distribution Width 14.9H, Platelet Count 225, Mean Platelet Volume 10.1, Neutrophils (%) (Auto) 76H, Lymphocytes (%) (Auto) 14 , Monocytes (%) (Auto) 8, Eosinophils (%) (Auto) 2, Basophils (%) (Auto) 0, Neutrophils # (Auto) 6.3, Lymphocytes # (Auto) 1.2, Monocytes # (Auto) 0.6, Eosinophils # (Auto) 0.2, Basophils # (Auto) 0.0, Sodium Level 140, Potassium Level 3.7, Chloride Level 109H, Carbon Dioxide Level 17L, Anion Gap 14, Blood Urea Nitrogen 30H, Creatinine 1.91H, Estimat Glomerular Filtration Rate 36, BUN/ Creatinine Ratio 16, Glucose Level 166H, Calcium Level 8.0L, Phosphorus Level 2.9, Magnesium Level 1.6L 10/31/18 11:32: Glucometer 182H Microbiology 10/27/18 Blood Culture - Preliminary, Resulted No growth 10/29/18 C. difficile GDH Antigen & Toxins - Final, Complete 10/27/18 Urine Culture - Final, Complete NO GROWTH A/P: Assessment: Acute panniculits with sepsis and septic shock WENCESLAO stage 2 superimposed on CKD stage 2 Chronic systolic CHF due to dilated cardiomyopathy. 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
--- NOTE | 2018-10-31 17:13 | NUR ---
C/O CATHETER BURNING WITH URINATION, CLEAR YELLOW URINE IN CATHETER, DR PLASCENCIA NOTIFIED AND INSTRUCTED NURSE BURNING IS FROM YEAST INFECTION AND PATIENT ON ANTIBIOTICS
--- NOTE | 2018-10-31 17:16 | Progress Note-Hospitalist ---
Progress Note Progress Notes/Assess & Plan Date Seen 10/31/18 Time Seen by Provider: 17:12 Assessment & Plan The patient was able to be transferred from the ICU to a medical surgical bed. He reports he continues to feel better. He is wearYIng of the confinement and the time he is spending in bed. Physical exam shows the abdomen and the skin level process to be clearly improving. Upper border is red but not fiery at this point. The lower skin involvement continues to fade and is now a dull pink in color. Impression: Panniculitis/necrotizing fasciitis. 2.morbid obesity. 3.diabetes type II Plan: Continue IV antibiotics. LONG PLASCENCIA MD October 31, 2018 17:16
[2018-10-31] MEDS: GABAPENTIN 300 MG (NEURONTIN) CAP PO SCH (20:49)
[2018-10-31] MEDS: HYDROcodone/APAP 5 MG/325 MG (LORTAB) TAB PO PRN (20:50)
[2018-11-01] VITALS: BP 181/86
[2018-11-01 04:37] VITALS: BP 177/93
[2018-11-01] MEDS: ceFAZolin INJECTION 2,000 MG in NS (IVPB) 50 ML IV SCH ×3 (04:41→20:21)
[2018-11-01] MEDS: inSUlin ASPART (NovoLOG) 1 UNIT/0.01 ML (CHARGE PER UNIT) SC SCH ×4 (05:15→20:58)
[2018-11-01] MEDS: LEVOTHYROXINE 150 MCG (LEVOTHROID) TAB PO SCH (05:55)
--- NOTE | 2018-11-01 07:33 | Diagnostic Imaging Report ---
Indication: ICU care management. History of sepsis. Comparison: 10/31/2018 Findings: 2 frontal radiographic views of the chest were obtained and show persistent marked cardiomegaly. Pulmonary vasculature however is within normal limits. Evaluation of lung torres suggest possible small right basilar effusion. There is no large effusion on the left. No pneumothorax is seen on either side. Lungs are otherwise clear. Bony structures show no gross acute abnormalities. Impression: 1. Persistent marked cardiomegaly and possible small right basilar effusion. Dictated by: Dictated on workstation # [id number]
[2018-11-01 07:35] LABS: BASOPHILS % (AUTO) 0 % (0-10); EOSINOPHILS # (AUTO) 0.1 10^3/uL (0.0-0.3); EOSINOPHILS % (AUTO) 1 % (0-10); HEMATOCRIT 41 % (40-54); HEMOGLOBIN 12.7 G/DL (13.3-17.7); LYMPHOCYTES # (AUTO) 1.2 X 10^3 (1.0-4.0); LYMPHOCYTES % (AUTO) 12 % (12-44); MEAN CORPUSCULAR HEMOGLOBIN 28 PG (25-34); MEAN CORPUSCULAR HGB CONC 31 G/DL (32-36); MEAN CORPUSCULAR VOLUME 89 FL (80-99); MEAN PLATELET VOLUME 9.8 FL (7.4-10.4); MONOCYTES # (AUTO) 0.8 X 10^3 (0.0-1.0); MONOCYTES % (AUTO) 8 % (0-12); NEUTROPHILS # (AUTO) 7.9 X 10^3 (1.8-7.8); NEUTROPHILS % (AUTO) 78 % (42-75); PLATELET COUNT 265 10^3/uL (130-400); RED CELL DISTRIBUTION WIDTH 14.9 % (10.0-14.5); WHITE BLOOD COUNT 10.1 10^3/uL (4.3-11.0)
[2018-11-01 07:49] LABS: CALCIUM 8.1 MG/DL (8.5-10.1); CREATININE SERUM 1.79 MG/DL (0.60-1.30); MAGNESIUM 1.7 MG/DL (1.8-2.4); PHOSPHORUS 2.1 MG/DL (2.3-4.7); POTASSIUM 3.4 MMOL/L (3.6-5.0)
[2018-11-01] MEDS ORDERED: NS IV 500 ML 500 ML ONE (07:55)
[2018-11-01 08:00] VITALS: BP 143/76
[2018-11-01] MEDS: PANTOPRAZOLE 20 MG TABLET (PROTONIX) PO SCH (09:30)
[2018-11-01] MEDS: toPIRamate 25 MG (TOPAMAX) TAB PO SCH ×2 (09:30→20:20)
[2018-11-01] MEDS: CYANOCOBALAMIN 1,000 MCG (VITAMIN B-12) TABLET PO SCH (09:30)
[2018-11-01] MEDS: fluCOnazole (DIFLUCAN) 100 MG TAB PO SCH (09:30)
[2018-11-01] MEDS: GABAPENTIN 100 MG (NEURONTIN) CAP PO SCH (09:31)
[2018-11-01] MEDS: ENOXAPARIN 60 MG/0.6 ML (LOVENOX) SYR SC SCH ×2 (09:31→20:21)
[2018-11-01] MEDS: MICONAZOLE 2% POWDER (DESENEX AF) 90 GM TOP SCH ×2 (09:32→20:21)
--- NOTE | 2018-11-01 11:51 | NUR ---
CM/SS, initial interview. PLAN: Home with spouse Kathrin Sanders at discharge. HHC: Patient will accept short term HHC if physician in agreement with care plan, RN for wound care. He has selected his preferred agency as [facility], will coordinate if orders received. DME: Patient uses a cane and states he is back to his baseline for independent ambulation. He has home CPAP and O2 through [employer]. VA: Patient is established through [facility], [place]. Patient and spouse indicate no needs at this time, HHC as noted above.
[2018-11-01] MEDS: NS IV 1000 ML 1,000 ML IV SCH ×3 (11:58→15:20)
[2018-11-01 12:00] VITALS: BP 143/90
--- NOTE | 2018-11-01 13:09 | Progress Note-Hospitalist ---
Progress Note Progress Notes/Assess & Plan Date Seen 11/01/18 Time Seen by Provider: 13:07 Assessment & Plan The patient continues to exhibit improvement. He is sitting up at the edge of the bed. His belly shows only 2 areas at the upper border of the cellulitis and to the right of center which are still inflamed looking. The great all of the erythema is clearly fading. He is afebrile. He reports he continues to feel better and is up and walking about the room at intervals. Impression: Panniculitis/necrotizing fasciitis. 2.diabetes mellitus. 3.morbid obesity. Plan: Continue IV antibiotics as before LONG PLASCENCIA MD November 01, 2018 13:09
--- NOTE | 2018-11-01 13:24 | Progress Note ---
Subjective Date Seen by a Provider: November 01, 2018 Time Seen by a Provider: 12:00 Subjective/Events-last exam Patient seen and examined at bedside today with no acute events overnight. Patient states that he continues to feel better each day. The amount of erythema over his lower abdomen continues to regress, with only a few areas at the superior border still consistent with inflammation. Patient has started getting out of bed and walking around, as well as sitting in a chair at bedside. He denies subjective fever, SOB, BENAVIDES, CP, abd pain, N/V/D and weakness. Objective Exam Vital Signs Date Time Temp Pulse Resp B/P (MAP) Pulse Ox O2 Delivery O2 Flow Rate FiO2 11/01/18 12:00 97.2 84 22 143/90 (107) 95 Room Air 11/01/18 08:00 96 Room Air 11/01/18 08:00 98.0 105 22 143/76 (98) 96 Room Air 11/01/18 04:37 97.4 99 18 177/93 (121) 91 Room Air 11/01/18 00:00 97.4 98 20 181/86 (117) 93 Room Air 10/31/18 20:00 97 Room Air 10/31/18 19:35 98.2 102 20 145/82 (103) 91 Room Air 10/31/18 16:08 98.4 107 20 117/79 (92) 91 Room Air I & O 11/01/18 07:00 Intake Total 3630 ml Output Total 2375 ml Balance 1255 ml Capillary Refill : Less Than 3 Seconds General Appearance: No Apparent Distress, Chronically ill, Obese HEENT: PERRL/EOMI, Normal ENT Inspection Neck: Normal Inspection, Non Tender Respiratory: Chest Non Tender, No Accessory Muscle Use, No Respiratory Distress Cardiovascular: Regular Rate, Rhythm, No Gallop Gastrointestinal: non tender, soft, other (Erythema in bilateral lower abdominal quadrants with large panniculus with no areas of fluctuance and significantly less intensity of erythema.) Extremity: Inflammation, Pedal Edema Neurologic/Psychiatric: Alert, Oriented x3, Normal 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, 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 Norm as Tested, Other (DECREASED SENSATION TO FEET ) Skin: Erythema, Rash, Other (Large area of the panniculus of the abdomen with edematous erythema and heat without blistering less intensity of erythema) Results Lab Laboratory Tests 10/31/18 16:08: Glucometer 224H 5/8/19 20:59: Glucometer 197H 11/01/18 05:11: Glucometer 168H 11/01/18 07:15: White Blood Count 10.1, Red Blood Count 4.56, Hemoglobin 12.7L, Hematocrit 41, Mean Corpuscular Volume 89, Mean Corpuscular Hemoglobin 28, Mean Corpuscular Hemoglobin Concent 31L, Red Cell Distribution Width 14.9H, Platelet Count 265, Mean Platelet Volume 9.8, Neutrophils (%) (Auto) 78H, Lymphocytes (%) (Auto) 12 , Monocytes (%) (Auto) 8, Eosinophils (%) (Auto) 1, Basophils (%) (Auto) 0, Neutrophils # (Auto) 7.9H, Lymphocytes # (Auto) 1.2, Monocytes # (Auto) 0.8, Eosinophils # (Auto) 0.1, Basophils # (Auto) 0.0, Sodium Level 137, Potassium Level 3.4L, Chloride Level 108H, Carbon Dioxide Level 18L, Anion Gap 11, Blood Urea Nitrogen 22H, Creatinine 1.79H, Estimat Glomerular Filtration Rate 38, BUN/ Creatinine Ratio 12, Glucose Level 183H, Calcium Level 8.1L, Phosphorus Level 2.1L, Magnesium Level 1.7L 11/01/18 11:10: Glucometer 189H Microbiology 10/27/18 Blood Culture - Final, Complete No growth 10/29/18 C. difficile GDH Antigen & Toxins - Final, Complete 10/30/18 MRSA Screen - Final, Complete MRSA not isolated 10/30/18 Urine Culture - Final, Complete NO GROWTH Assessment/Plan Assessment/Plan Assessment/Plan Panniculitis Sepsis secondary to panniculitis (resolved) Diabetes Morbid obesity Acute renal failure Hypomagnesemia Hypophosphatemia No surgical intervention recommended at this time continue abx Continue to follow No evidence of Necrotizing fasciitis Replete Mg, Phos BUN/Cr downtrending Clinical Quality Measures DVT/VTE Risk/Contraindication: Risk Factor Score Per Nursin RFS Level Per Nursing on Admit: 4+=Very High Supervisory-Addendum Brief Supervisory Addendum Participated in pt care: history, MDM, physical Personally performed: exam, history, MDM, supervision of care Care discussed with: other (Dr. Latasha Cortes) Results interpretation: agree with documentation MARIA C CORTES RESIDENT November 01, 2018 13:24 KEVIN SANTIAGO DO November 01, 2018 21:03
--- NOTE | 2018-11-01 14:59 | Pulmonary Progress Note ---
Subjective Time Seen by a Provider: 08:33 Subjective/Events-last exam Complains of sob with exertion Sepsis Event Evaluation Height, Weight, BMI Height: 6'2.00" Weight: 450lbs. 4.8oz. 204.068674xa; 53.6 BMI Method:Stated Exam Exam Vital Signs Date Time Temp Pulse Resp B/P (MAP) Pulse Ox O2 Delivery O2 Flow Rate FiO2 11/01/18 12:00 97.2 84 22 143/90 (107) 95 Room Air 11/01/18 08:00 96 Room Air 11/01/18 08:00 98.0 105 22 143/76 (98) 96 Room Air 11/01/18 04:37 97.4 99 18 177/93 (121) 91 Room Air 11/01/18 00:00 97.4 98 20 181/86 (117) 93 Room Air 10/31/18 20:00 97 Room Air 10/31/18 19:35 98.2 102 20 145/82 (103) 91 Room Air 10/31/18 16:08 98.4 107 20 117/79 (92) 91 Room Air I & O 11/01/18 07:00 Intake Total 3630 ml Output Total 2375 ml Balance 1255 ml Height & Weight Height: 6'2.00" Weight: 450lbs. 4.8oz. 204.038259xq; 53.6 BMI Method:Stated General Appearance: No Apparent Distress, Chronically ill, Obese HEENT: PERRL/EOMI, Normal ENT Inspection Neck: Normal Inspection, Non Tender Respiratory: Chest Non Tender, No Accessory Muscle Use, No Respiratory Distress Cardiovascular: Regular Rate, Rhythm, No Gallop Capillary Refill: Less Than 3 Seconds Gastrointestinal: non tender, soft, other (Erythema in bilateral lower abdominal quadrants with large panniculus with no areas of fluctuance and significantly less intensity of erythema.) Extremity: Inflammation, Pedal Edema Neurologic/Psychiatric: Alert, Oriented x3, Normal Mood/Affect, pile header II-XII Norm as Tested, Other (DECREASED SENSATION TO FEET ) Skin: Erythema, Rash, Other (Large area of the panniculus of the abdomen with edematous erythema and heat without blistering less intensity of erythema) Results Lab Laboratory Tests 10/31/18 03:30 11/01/18 07:15 Assessment/Plan Assessment/Plan Severe sepsis with septic shock secondary to Panniculitis -Currently on Keflex -IVF -Arceo cultures neg thus far WENCESLAO on CKD stage 2 -No ACEI or ARB -NO NSAIDS -IVF -Monitor close Chronic systolic CHF secondary to dilated cardiomyopathy EF 30-35% Morbid obesity with RORY -Pt is using home CPAP Quit smoking DM II Chronic venous insuff MARIA ELENA GODINEZ DO November 01, 2018 14:59
[2018-11-01 15:55] VITALS: BP 147/78
[2018-11-01 19:20] VITALS: BP 145/90
[2018-11-01] MEDS: GABAPENTIN 300 MG (NEURONTIN) CAP PO SCH (20:20)
[2018-11-01] MEDS: HYDROcodone/APAP 5 MG/325 MG (LORTAB) TAB PO PRN ×2 (20:25→20:55)
[2018-11-02 00:35] VITALS: BP 142/78
[2018-11-02] MEDS: NS IV 1000 ML 1,000 ML IV SCH (03:46)
[2018-11-02] MEDS: ceFAZolin INJECTION 2,000 MG in NS (IVPB) 50 ML IV SCH ×3 (03:46→20:16)
[2018-11-02 04:53] VITALS: BP 148/92
[2018-11-02] MEDS: LEVOTHYROXINE 150 MCG (LEVOTHROID) TAB PO SCH (05:58)
[2018-11-02 06:24] LABS: BASOPHILS % (AUTO) 0 % (0-10); EOSINOPHILS # (AUTO) 0.1 10^3/uL (0.0-0.3); EOSINOPHILS % (AUTO) 1 % (0-10); HEMATOCRIT 40 % (40-54); HEMOGLOBIN 12.6 G/DL (13.3-17.7); LYMPHOCYTES # (AUTO) 1.4 X 10^3 (1.0-4.0); LYMPHOCYTES % (AUTO) 14 % (12-44); MEAN CORPUSCULAR HEMOGLOBIN 28 PG (25-34); MEAN CORPUSCULAR HGB CONC 32 G/DL (32-36); MEAN CORPUSCULAR VOLUME 89 FL (80-99); MEAN PLATELET VOLUME 9.7 FL (7.4-10.4); MONOCYTES # (AUTO) 0.8 X 10^3 (0.0-1.0); MONOCYTES % (AUTO) 8 % (0-12); NEUTROPHILS # (AUTO) 8.1 X 10^3 (1.8-7.8); NEUTROPHILS % (AUTO) 78 % (42-75); PLATELET COUNT 226 10^3/uL (130-400); RED CELL DISTRIBUTION WIDTH 14.9 % (10.0-14.5); WHITE BLOOD COUNT 10.4 10^3/uL (4.3-11.0)
[2018-11-02 06:41] LABS: CALCIUM 8.3 MG/DL (8.5-10.1); CREATININE SERUM 1.61 MG/DL (0.60-1.30); MAGNESIUM 1.6 MG/DL (1.8-2.4); PHOSPHORUS 2.2 MG/DL (2.3-4.7); POTASSIUM 3.3 MMOL/L (3.6-5.0)
[2018-11-02] MEDS: inSUlin ASPART (NovoLOG) 1 UNIT/0.01 ML (CHARGE PER UNIT) SC SCH ×4 (06:43→20:17)
[2018-11-02 08:00] VITALS: BP 138/76
[2018-11-02] MEDS: ENOXAPARIN 60 MG/0.6 ML (LOVENOX) SYR SC SCH ×2 (09:00→20:16)
[2018-11-02] MEDS: fluCOnazole (DIFLUCAN) 100 MG TAB PO SCH (09:00)
[2018-11-02] MEDS: toPIRamate 25 MG (TOPAMAX) TAB PO SCH ×2 (09:00→20:16)
[2018-11-02] MEDS: GABAPENTIN 100 MG (NEURONTIN) CAP PO SCH (09:00)
[2018-11-02] MEDS: PANTOPRAZOLE 20 MG TABLET (PROTONIX) PO SCH (09:00)
[2018-11-02] MEDS: CYANOCOBALAMIN 1,000 MCG (VITAMIN B-12) TABLET PO SCH (09:02)
[2018-11-02] MEDS: MICONAZOLE 2% POWDER (DESENEX AF) 90 GM TOP SCH ×2 (09:03→20:17)
[2018-11-02] MEDS ORDERED: KCL 20 MEQ TAB (K-DUR) PO NR (09:14)
--- NOTE | 2018-11-02 09:34 | Progress Note ---
Subjective Date Seen by a Provider: November 02, 2018 Time Seen by a Provider: 09:10 Subjective/Events-last exam Patient seen and examined at bedside this morning with no acute events reported overnight. He states that he continues to improve and has been trying to get out of bed and walking around a little more each day. Erythema on abdomen continues to decrease in size and intensity of erythema. He denies subjective fever, SOB, BENAVIDES, CP, abd. pain, N/V/D and weakness. Objective Exam Vital Signs Date Time Temp Pulse Resp B/P (MAP) Pulse Ox O2 Delivery O2 Flow Rate FiO2 11/02/18 08:11 90 Room Air 20.00 11/02/18 08:00 97.0 115 20 138/76 (96) 95 Room Air 11/02/18 04:53 96.0 96 21 148/92 (110) 90 Room Air 11/02/18 00:35 97.1 106 21 142/78 (99) 92 Room Air 11/01/18 20:50 97 Room Air 11/01/18 19:33 Room Air 11/01/18 19:20 97.0 105 22 145/90 (108) 91 Room Air 11/01/18 15:55 98.0 110 20 147/78 (101) 91 Room Air 11/01/18 12:00 97.2 84 22 143/90 (107) 95 Room Air I & O 11/02/18 07:00 Intake Total 1570 ml Output Total 2400 ml Balance -830 ml Capillary Refill : Less Than 3 Seconds General Appearance: No Apparent Distress, Chronically ill, Obese HEENT: PERRL/EOMI, Normal ENT Inspection Neck: Normal Inspection, Non Tender Respiratory: Chest Non Tender, No Accessory Muscle Use, No Respiratory Distress Cardiovascular: Regular Rate, Rhythm, No Gallop Gastrointestinal: non tender, soft, other (Erythema in bilateral lower abdominal quadrants with large panniculus with no areas of fluctuance and significantly less intensity of erythema and regression of erythema) Extremity: Inflammation, Pedal Edema Neurologic/Psychiatric: Alert, Oriented x3, Normal Mood/Affect, 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 Norm as Tested, Other (DECREASED SENSATION TO FEET ) Skin: Erythema, Rash, Other (Large area of the panniculus of the abdomen with edematous erythema and heat without blistering less intensity of erythema regressing) Lymphatic: No Adenopathy Results Lab Laboratory Tests 11/01/18 11:10: Glucometer 189H 11/01/18 15:55: Glucometer 223H 11/01/18 20:34: Glucometer 206H 11/02/18 06:15: White Blood Count 10.4, Red Blood Count 4.48, Hemoglobin 12.6L, Hematocrit 40, Mean Corpuscular Volume 89, Mean Corpuscular Hemoglobin 28, Mean Corpuscular Hemoglobin Concent 32, Red Cell Distribution Width 14.9H, Platelet Count 226, Mean Platelet Volume 9.7, Neutrophils (%) (Auto) 78H, Lymphocytes (%) (Auto) 14 , Monocytes (%) (Auto) 8, Eosinophils (%) (Auto) 1, Basophils (%) (Auto) 0, Neutrophils # (Auto) 8.1H, Lymphocytes # (Auto) 1.4, Monocytes # (Auto) 0.8, Eosinophils # (Auto) 0.1, Basophils # (Auto) 0.0, Sodium Level 141, Potassium Level 3.3L, Chloride Level 112H, Carbon Dioxide Level 19L, Anion Gap 10, Blood Urea Nitrogen 17, Creatinine 1.61H, Estimat Glomerular Filtration Rate 43, BUN/ Creatinine Ratio 11, Glucose Level 178H, Calcium Level 8.3L, Phosphorus Level 2.2L, Magnesium Level 1.6L 11/02/18 06:25: Glucometer 170H Microbiology 10/27/18 Blood Culture - Final, Complete No growth 10/29/18 C. difficile GDH Antigen & Toxins - Final, Complete 10/30/18 MRSA Screen - Final, Complete MRSA not isolated 10/30/18 Urine Culture - Final, Complete NO GROWTH Assessment/Plan Assessment/Plan Assessment/Plan Panniculitis Sepsis secondary to panniculitis (resolved) Diabetes Morbid obesity Acute renal failure Hypomagnesemia Hypophosphatemia Hypokalemia No surgical intervention recommended at this time continue abx No evidence of Necrotizing fasciitis Replete Mg, Phos, K prn will sign off, call if needed. Clinical Quality Measures DVT/VTE Risk/Contraindication: Risk Factor Score Per Nursin RFS Level Per Nursing on Admit: 4+=Very High Supervisory-Addendum Brief Supervisory Addendum Participated in pt care: history, MDM, physical Personally performed: exam, history, MDM, supervision of care Care discussed with: other (Dr. Kristen Cortes) Results interpretation: agree with documentation MARIA C CORTES RESIDENT November 02, 2018 09:34 KEVIN SANTIAGO DO November 02, 2018 17:53
--- NOTE | 2018-11-02 09:54 | Progress Note-Cardiology ---
Cardiology SOAP Progress Note Subjective: Feels better No cp or palp Shortness of breath better Abd wall discomfort improved Objective: I&O/Vital Signs 11/02/18 11/02/18 11/02/18 11/02/18 00:35 04:53 08:00 08:11 Temp 97.1 96.0 97.0 Pulse 106 96 115 Resp 21 21 20 B/P (MAP) 142/78 (99) 148/92 (110) 138/76 (96) Pulse Ox 92 90 95 90 O2 Delivery Room Air Room Air Room Air Room Air O2 Flow Rate 20.00 11/02/18 00:00 Intake Total 1470 ml Output Total 1675 ml Balance -205 ml Weight (Pounds): 448 Weight (Ounces): 5.0 Weight (Calculated Kilograms): 203.932932 Constitutional: AAO x 3, well-developed, well-nourished, other (morbid obesity) Respiratory: No accessory muscle use; other (fair bilat air enty, diminished at the bases) Cardiovascular: regular rate-rhythm, S1 and S2, systolic murmur (faint MANUEL at card base) Gastrointestional: No tender; soft; No guarding; rebound, other (marked redness of infra-umbilical abdominal wall and the inguinal region with mild swelling) Extremities: other (reddish-blue discoloration of the legs and feet); No clubbing, No cyanosis; significant edema (moderate, bilat leg edema that is pitting and non-pitting) Neurologic/Psychiatric: oriented x 3, grossly intact, power is 5/5 both on sides Skin: other (see above under GI and Extremities exam) Results/Procedures: Labs Laboratory Tests 11/01/18 11:10: Glucometer 189H 11/01/18 15:55: Glucometer 223H 11/01/18 20:34: Glucometer 206H 11/02/18 06:15: White Blood Count 10.4, Red Blood Count 4.48, Hemoglobin 12.6L, Hematocrit 40, Mean Corpuscular Volume 89, Mean Corpuscular Hemoglobin 28, Mean Corpuscular Hemoglobin Concent 32, Red Cell Distribution Width 14.9H, Platelet Count 226, Mean Platelet Volume 9.7, Neutrophils (%) (Auto) 78H, Lymphocytes (%) (Auto) 14 , Monocytes (%) (Auto) 8, Eosinophils (%) (Auto) 1, Basophils (%) (Auto) 0, Neutrophils # (Auto) 8.1H, Lymphocytes # (Auto) 1.4, Monocytes # (Auto) 0.8, Eosinophils # (Auto) 0.1, Basophils # (Auto) 0.0, Sodium Level 141, Potassium Level 3.3L, Chloride Level 112H, Carbon Dioxide Level 19L, Anion Gap 10, Blood Urea Nitrogen 17, Creatinine 1.61H, Estimat Glomerular Filtration Rate 43, BUN/ Creatinine Ratio 11, Glucose Level 178H, Calcium Level 8.3L, Phosphorus Level 2.2L, Magnesium Level 1.6L 11/02/18 06:25: Glucometer 170H Microbiology 10/27/18 Blood Culture - Final, Complete No growth 10/29/18 C. difficile GDH Antigen & Toxins - Final, Complete 10/30/18 MRSA Screen - Final, Complete MRSA not isolated 10/30/18 Urine Culture - Final, Complete NO GROWTH Laboratory Tests 11/01/18 07:15 11/02/18 06:15 A/P: Assessment: Acute panniculits with sepsis and septic shock WENCESLAO stage 2 superimposed on CKD stage 2 Chronic systolic CHF due to dilated cardiomyopathy. Echo of 10/29/18: LVEF 30-5%, AoV scl w/o stenoses, PASP 25 mmHg MPI on 02/14/17: LVEF 30%, mod cardiomegaly, no distinct evidence of ischemia or infarction Morbid obesity with obesity-hypoventilation and RORY syndrome Quit smoking in the 1980s DM II with diabetic nephropathy Hyperlipidemia, by history Chronic back pain Chronic leg swelling, likely related to venous insuff Symptoms of claudication, but seg pressures of 09/01/17 did not show any significant obstructive disease of the legs Plan: * Hold off on nephrotoxic agents, such as ARBs and CYRUS-inhib * WENCESLAO and panniculitis appear improved, but not resolved * Replenish K * Advised close outpt f/u post d/c * Dr Barron covering Card Svce over the weekend LANCE TAPIA [facility] CCDS November 02, 2018 09:53
--- NOTE | 2018-11-02 10:32 | Progress Note-Hospitalist ---
Progress Note Progress Notes/Assess & Plan Date Seen 11/02/18 Time Seen by Provider: 10:28 Assessment & Plan The patient is sitting up in the chair at bedside. He is also been walking short distances. He has no complaints of pain. Physical exam. Lungs are clear to auscultation. CV is regular. The abdomen continues to show slow but steady improvement. The sub- umbilical portions that are continuing to fade to light pain. The upper portion of the left abdomen is similarly improving. There is a small area on the right upper pole with a greater erythema and serous crusting. Impression: panniculitis. 2.diabetes mellitus type II, insulin-requiring LONG PLASCENCIA MD November 02, 2018 10:31
[2018-11-02] MEDS: ACETAMINOPHEN 500 MG TAB (TYLENOL) PO PRN (11:44)
[2018-11-02 12:00] VITALS: BP 152/75
--- NOTE | 2018-11-02 12:49 | Pulmonary Progress Note ---
Subjective Time Seen by a Provider: 08:32 Subjective/Events-last exam Pt appears to be doing better. Sitting up in chair. Sepsis Event Evaluation Height, Weight, BMI Height: 6'2.00" Weight: 448lbs. 5.0oz. 203.049399mz; 53.6 BMI Method:Stated Exam Exam Vital Signs Date Time Temp Pulse Resp B/P (MAP) Pulse Ox O2 Delivery O2 Flow Rate FiO2 11/02/18 08:11 90 Room Air 20.00 11/02/18 08:00 97.0 115 20 138/76 (96) 95 Room Air 11/02/18 08:00 Nasal Cannula 11/02/18 04:53 96.0 96 21 148/92 (110) 90 Room Air 11/02/18 00:35 97.1 106 21 142/78 (99) 92 Room Air 11/01/18 20:50 97 Room Air 11/01/18 19:33 Room Air 11/01/18 19:20 97.0 105 22 145/90 (108) 91 Room Air 11/01/18 15:55 98.0 110 20 147/78 (101) 91 Room Air I & O 11/02/18 07:00 Intake Total 1570 ml Output Total 2400 ml Balance -830 ml Height & Weight Height: 6'2.00" Weight: 448lbs. 5.0oz. 203.787875to; 53.6 BMI Method:Stated General Appearance: No Apparent Distress, Chronically ill, Obese HEENT: PERRL/EOMI, Normal ENT Inspection Neck: Normal Inspection, Non Tender Respiratory: Chest Non Tender, No Accessory Muscle Use, No Respiratory Distress Cardiovascular: Regular Rate, Rhythm, No Gallop Capillary Refill: Less Than 3 Seconds Gastrointestinal: non tender, soft, other (Erythema in bilateral lower abdominal quadrants with large panniculus with no areas of fluctuance and significantly less intensity of erythema.) Extremity: Inflammation, Pedal Edema Neurologic/Psychiatric: Alert, Oriented x3, Normal 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/Affect, 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 Norm as Tested, Other (DECREASED SENSATION TO FEET ) Skin: Erythema, Rash, Other (Large area of the panniculus of the abdomen with edematous erythema and heat without blistering less intensity of erythema) Results Lab Laboratory Tests 11/01/18 07:15 11/02/18 06:15 Assessment/Plan Assessment/Plan Severe sepsis with septic shock secondary to Panniculitis -Currently on Keflex -IVF -- will stop secondary to pulmonary edema -Arceo cultures neg thus far WENCESLAO on CKD stage 2 -Monitor close Hypomag, hypokal -replace Chronic systolic CHF secondary to dilated cardiomyopathy EF 30-35% Morbid obesity with RORY -Pt is using home CPAP Quit smoking DM II Chronic venous insuff MARIA ELENA GODINEZ DO November 02, 2018 12:49
[2018-11-02] MEDS: MAGNESIUM 1 GM/100 ML IVPB 100 ML IV SCH (13:03)
[2018-11-02] MEDS: IBUPROFEN 800 MG (MOTRIN) TAB PO NR (15:01)
[2018-11-02 15:55] VITALS: BP 126/62
[2018-11-02 19:35] VITALS: BP 136/89
[2018-11-02] MEDS: GABAPENTIN 300 MG (NEURONTIN) CAP PO SCH (20:16)
[2018-11-02] MEDS: HYDROcodone/APAP 5 MG/325 MG (LORTAB) TAB PO PRN (21:24)
[2018-11-03] VITALS (7 sets, daily range): BP systolic 119–176; BP diastolic 64–97
[2018-11-03] MEDS: ACETAMINOPHEN 500 MG TAB (TYLENOL) PO PRN ×2 (03:31→15:06)
[2018-11-03] MEDS: ceFAZolin INJECTION 2,000 MG in NS (IVPB) 50 ML IV SCH ×3 (03:31→20:43)
[2018-11-03] MEDS: inSUlin ASPART (NovoLOG) 1 UNIT/0.01 ML (CHARGE PER UNIT) SC SCH ×4 (05:30→21:22)
[2018-11-03] MEDS: LEVOTHYROXINE 150 MCG (LEVOTHROID) TAB PO SCH (05:41)
[2018-11-03 05:55] LABS: BASOPHILS % (AUTO) 0 % (0-10); EOSINOPHILS # (AUTO) 0.2 10^3/uL (0.0-0.3); EOSINOPHILS % (AUTO) 1 % (0-10); HEMATOCRIT 40 % (40-54); HEMOGLOBIN 12.6 G/DL (13.3-17.7); LYMPHOCYTES # (AUTO) 1.5 X 10^3 (1.0-4.0); LYMPHOCYTES % (AUTO) 13 % (12-44); MEAN CORPUSCULAR HEMOGLOBIN 28 PG (25-34); MEAN CORPUSCULAR HGB CONC 31 G/DL (32-36); MEAN CORPUSCULAR VOLUME 89 FL (80-99); MEAN PLATELET VOLUME 9.5 FL (7.4-10.4); MONOCYTES # (AUTO) 0.9 X 10^3 (0.0-1.0); MONOCYTES % (AUTO) 8 % (0-12); NEUTROPHILS # (AUTO) 8.7 X 10^3 (1.8-7.8); NEUTROPHILS % (AUTO) 77 % (42-75); PLATELET COUNT 231 10^3/uL (130-400); RED CELL DISTRIBUTION WIDTH 15.1 % (10.0-14.5); WHITE BLOOD COUNT 11.2 10^3/uL (4.3-11.0)
[2018-11-03 06:13] LABS: CALCIUM 8.2 MG/DL (8.5-10.1); CREATININE SERUM 1.54 MG/DL (0.60-1.30); MAGNESIUM 1.7 MG/DL (1.8-2.4); PHOSPHORUS 2.2 MG/DL (2.3-4.7); POTASSIUM 3.6 MMOL/L (3.6-5.0)
--- NOTE | 2018-11-03 08:36 | Pulmonary Progress Note ---
Subjective Time Seen by a Provider: 08:35 Subjective/Events-last exam No complications noted. Sepsis Event Evaluation Height, Weight, BMI Height: 6'2.00" Weight: 444lbs. 6.0oz. 201.783235rx; 53.6 BMI Method:Stated Exam Exam Vital Signs Date Time Temp Pulse Resp B/P (MAP) Pulse Ox O2 Delivery O2 Flow Rate FiO2 11/03/18 04:03 97.9 117 20 155/91 (112) 93 Room Air 11/03/18 00:20 97.3 116 20 153/64 (93) 90 NIV CPAP 11/02/18 20:45 Nasal Cannula 11/02/18 19:35 97.1 102 20 136/89 (105) 96 NIV CPAP 3.50 11/02/18 19:21 NIV CPAP 3.50 11/02/18 15:55 97.5 100 20 126/62 (83) 90 Nasal Cannula 2.00 11/02/18 12:00 97.0 114 22 152/75 (100) 96 Room Air I & O 11/03/18 07:00 Intake Total 2440 ml Output Total 1750 ml Balance 690 ml Height & Weight Height: 6'2.00" Weight: 444lbs. 6.0oz. 201.782908ow; 53.6 BMI Method:Stated General Appearance: No Apparent Distress, Chronically ill, Obese HEENT: PERRL/EOMI, Normal ENT Inspection Neck: Normal Inspection, Non Tender Respiratory: Chest Non Tender, No Accessory Muscle Use, No Respiratory Distress Cardiovascular: Regular Rate, Rhythm, No Gallop Capillary Refill: Less Than 3 Seconds Gastrointestinal: non tender, soft, other (Erythema in bilateral lower abdominal quadrants with large panniculus with no areas of fluctuance and significantly less intensity of erythema.) Extremity: Inflammation, Pedal Edema Neurologic/Psychiatric: Alert, Oriented x3, Normal 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, 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 Norm as Tested, Other (DECREASED SENSATION TO FEET ) Skin: Erythema, Rash, Other (Large area of the panniculus of the abdomen with edematous erythema and heat without blistering less intensity of erythema) Lymphatic: No Adenopathy Results Lab Laboratory Tests 11/02/18 06:15 11/03/18 05:50 Assessment/Plan Assessment/Plan Severe sepsis - improved -Currently on Keflex -Arceo cultures neg thus far WENCESLAO on CKD stage 2 -Monitor close Hypomag, hypokal -replace Chronic systolic CHF secondary to dilated cardiomyopathy EF 30-35% Morbid obesity with RORY -Pt is using home CPAP Quit smoking DM II Chronic venous insuff MARIA ELENA GODINEZ DO November 03, 2018 08:36
[2018-11-03] MEDS: ENOXAPARIN 60 MG/0.6 ML (LOVENOX) SYR SC SCH ×2 (09:10→21:22)
[2018-11-03] MEDS: fluCOnazole (DIFLUCAN) 100 MG TAB PO SCH (09:10)
[2018-11-03] MEDS: MICONAZOLE 2% POWDER (DESENEX AF) 90 GM TOP SCH ×2 (09:10→21:22)
[2018-11-03] MEDS: toPIRamate 25 MG (TOPAMAX) TAB PO SCH ×2 (09:10→21:21)
[2018-11-03] MEDS: GABAPENTIN 100 MG (NEURONTIN) CAP PO SCH (09:10)
[2018-11-03] MEDS: CYANOCOBALAMIN 1,000 MCG (VITAMIN B-12) TABLET PO SCH (09:10)
[2018-11-03] MEDS: PANTOPRAZOLE 20 MG TABLET (PROTONIX) PO SCH (09:10)
--- NOTE | 2018-11-03 12:41 | Progress Note-Hospitalist ---
Subjective HPI/CC On Admission Date Seen by Provider: November 03, 2018 Time Seen by Provider: 12:38 This is a 63-year-old white male with multiple medical problems who presents to the emergency room with complaints of a temperature of 102 for the last 3-4 days. In the last 2 days he's broken out with a rash all over his abdomen. He complains a great deal of weakness as well. He is somewhat ambulatory but mostly is in a scooter or occasionally can ambulate short distances with a cane. He denies having had a previous infection of his abdomen like this. He denies having any inciting events that could've started this. He does note that he had been ill about 5 days ago before the rash started. He also notes that when they were transferring him yesterday he hit his tailbone on the guard rail of the bed and thinks it may be broken. Subjective/Events-last exam Patient reports she's feeling stronger each day denying abdominal wall pain night sweats chills or fever. Appetite is back to baseline. Objective Exam Vital Signs Vital Signs Date Time Temp Pulse Resp B/P (MAP) Pulse Ox O2 Delivery O2 Flow Rate FiO2 11/03/18 12:03 98 Nasal Cannula 4.00 97 11/03/18 12:00 97.8 109 18 142/88 (106) Capillary Refill : Less Than 3 Seconds General Appearance: No Apparent Distress, Chronically ill, Obese HEENT: PERRL/EOMI, Normal ENT Inspection Neck: Normal Inspection, Non Tender Respiratory: Chest Non Tender, No Accessory Muscle Use, No Respiratory Distress Cardiovascular: No Gallop, No Murmur, Irregularly Irregular Gastrointestinal: Distended, Tenderness, Other Rectal: Deferred Genital/Rectal: Other (GENITAL AREA WITH GENERAL NORMAL APPEARANCE. NO SWELLING OR ERYTHEMA OR EVIDENCE OF INFECTION. NO SORES/OPEN WOUNDS, ETC. 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 Imaging: Reviewed Imaging Report Assessment/Plan Assessment and Plan Assess & Plan/Chief Complaint /P1. Severe panniculitis responding to antibiotic therapy continue likely discharge on Monday with home health care. 2. Type II diabetes mellitus under reasonable control. Clinical Quality Measures DVT/VTE Risk/Contraindication: Risk Factor Score Per Nursin RFS Level Per Nursing on Admit: 4+=Very High LEONARD QUESADA MD November 03, 2018 12:41
[2018-11-03] MEDS ORDERED: IBUPROFEN 800 MG (MOTRIN) TAB PO ONE (13:16)
[2018-11-03] MEDS: IBUPROFEN 800 MG (MOTRIN) TAB PO NR (13:22)
[2018-11-03] MEDS ORDERED: IBUPROFEN 800 MG (MOTRIN) TAB PO PRN (13:45)
--- NOTE | 2018-11-03 14:31 | Cardiology Progress Note ---
Cardiology SOAP Progress Note Subjective: No cardiac complaints. Objective: I&O/Vital Signs 11/03/18 11/03/18 11/03/18 11/03/18 04:03 08:00 08:00 12:00 Temp 97.9 96.8 97.8 Pulse 117 100 109 Resp 20 18 18 B/P (MAP) 155/91 (112) 174/82 (112) 142/88 (106) Pulse Ox 93 92 97 O2 Delivery Room Air NIV CPAP Nasal Cannula Nasal Cannula O2 Flow Rate 2.00 11/03/18 12:03 Pulse Ox 98 O2 Delivery Nasal Cannula O2 Flow Rate 4.00 FiO2 97 11/03/18 00:00 Intake Total 1840 ml Output Total 1350 ml Balance 490 ml Weight (Pounds): 444 Weight (Ounces): 6.0 Weight (Calculated Kilograms): 201.935354 Constitutional: AAO x 3, well-developed, well-nourished, other (morbid obesity) Respiratory: No accessory muscle use; other (fair bilat air enty, diminished at the bases) Cardiovascular: regular rate-rhythm, S1 and S2, systolic murmur (faint MANUEL at card base) Gastrointestional: No tender; soft; No guarding; rebound, other (marked redness of infra-umbilical abdominal wall and the inguinal region with mild swelling) Extremities: other (reddish-blue discoloration of the legs and feet); No clubbing, No cyanosis; significant edema (moderate, bilat leg edema that is pitting and non-pitting) Neurologic/Psychiatric: oriented x 3, grossly intact, power is 5/5 both on sides Skin: other (see above under GI and Extremities exam) Results/Procedures: Labs Laboratory Tests 11/02/18 15:49: Glucometer 210H 11/02/18 20:04: Glucometer 135H 11/03/18 05:28: Glucometer 153H 11/03/18 05:50: White Blood Count 11.2H, Red Blood Count 4.51, Hemoglobin 12.6L, Hematocrit 40, Mean Corpuscular Volume 89, Mean Corpuscular Hemoglobin 28, Mean Corpuscular Hemoglobin Concent 31L, Red Cell Distribution Width 15.1H, Platelet Count 231, Mean Platelet Volume 9.5, Neutrophils (%) (Auto) 77H, Lymphocytes (%) (Auto) 13 , Monocytes (%) (Auto) 8, Eosinophils (%) (Auto) 1, Basophils (%) (Auto) 0, Neutrophils # (Auto) 8.7H, Lymphocytes # (Auto) 1.5, Monocytes # (Auto) 0.9, Eosinophils # (Auto) 0.2, Basophils # (Auto) 0.0, Sodium Level 140, Potassium Level 3.6, Chloride Level 111H, Carbon Dioxide Level 19L, Anion Gap 10, Blood Urea Nitrogen 16, Creatinine 1.54H, Estimat Glomerular Filtration Rate 46, BUN/ Creatinine Ratio 10, Glucose Level 155H, Calcium Level 8.2L, Phosphorus Level 2.2L, Magnesium Level 1.7L 11/03/18 07:40: Glucometer 154H 11/03/18 11:07: Glucometer 223H Microbiology 10/27/18 Blood Culture - Final, Complete No growth 10/29/18 C. difficile GDH Antigen & Toxins - Final, Complete 10/30/18 MRSA Screen - Final, Complete MRSA not isolated 10/30/18 Urine Culture - Final, Complete NO GROWTH A/P: Assessment/Dx: acute panniculits with sepsis and septic shock WENCESLAO stage 2 superimposed on CKD stage 2 Chronic systolic CHF due to dilated cardiomyopathy. Echo of 10/29/18: LVEF 30-5%, AoV scl w/o stenoses, PASP 25 mmHg MPI on 02/14/17: LVEF 30%, mod cardiomegaly, no distinct evidence of ischemia or infarction Morbid obesity with obesity-hypoventilation and RORY syndrome Quit smoking in the 1980s DM II with diabetic nephropathy Hyperlipidemia, by history Chronic back pain Chronic leg swelling, likely related to venous insuff Symptoms of claudication, but seg pressures of 09/01/17 did not show any significant obstructive disease of the legs Plan: * Hold off on nephrotoxic agents, such as ARBs and CYRUS-inhib * WENCESLAO and panniculitis appear improved, but not resolved * Replenish K * Advised close outpt f/u post d/c Thank you for your consultation. Please call me if you have any questions. Trey Barron MD, FACP, FACC, FSCAI, FHRS, CCDS Interventional Cardiology Cardiac Electrophysiology Vascular Medicine and Endovascular Interventions Leonides BARRON MD November 03, 2018 14:31
[2018-11-03] MEDS: GABAPENTIN 300 MG (NEURONTIN) CAP PO SCH (21:21)
[2018-11-03] MEDS: meTOprolol SUCCINATE 100 MG (TOPROL XL) TAB PO SCH (21:21)
[2018-11-03] MEDS: HYDROcodone/APAP 5 MG/325 MG (LORTAB) TAB PO PRN (22:23)
[2018-11-04 05:23] LABS: BASOPHILS % (AUTO) 0 % (0-10); EOSINOPHILS # (AUTO) 0.1 10^3/uL (0.0-0.3); EOSINOPHILS % (AUTO) 1 % (0-10); HEMATOCRIT 41 % (40-54); HEMOGLOBIN 12.8 G/DL (13.3-17.7); LYMPHOCYTES # (AUTO) 1.7 X 10^3 (1.0-4.0); LYMPHOCYTES % (AUTO) 16 % (12-44); MEAN CORPUSCULAR HEMOGLOBIN 28 PG (25-34); MEAN CORPUSCULAR HGB CONC 31 G/DL (32-36); MEAN CORPUSCULAR VOLUME 90 FL (80-99); MEAN PLATELET VOLUME 9.7 FL (7.4-10.4); MONOCYTES # (AUTO) 0.8 X 10^3 (0.0-1.0); MONOCYTES % (AUTO) 8 % (0-12); NEUTROPHILS # (AUTO) 7.6 X 10^3 (1.8-7.8); NEUTROPHILS % (AUTO) 74 % (42-75); PLATELET COUNT 226 10^3/uL (130-400); RED CELL DISTRIBUTION WIDTH 15.1 % (10.0-14.5); WHITE BLOOD COUNT 10.3 10^3/uL (4.3-11.0)
[2018-11-04 05:38] LABS: CALCIUM 8.6 MG/DL (8.5-10.1); CREATININE SERUM 1.69 MG/DL (0.60-1.30); MAGNESIUM 1.6 MG/DL (1.8-2.4); PHOSPHORUS 2.7 MG/DL (2.3-4.7); POTASSIUM 3.8 MMOL/L (3.6-5.0)
[2018-11-04] MEDS: inSUlin ASPART (NovoLOG) 1 UNIT/0.01 ML (CHARGE PER UNIT) SC SCH ×4 (05:47→20:35)
[2018-11-04] MEDS: LEVOTHYROXINE 150 MCG (LEVOTHROID) TAB PO SCH (05:52)
[2018-11-04 08:00] VITALS: BP 130/87
[2018-11-04] MEDS: GABAPENTIN 100 MG (NEURONTIN) CAP PO SCH (10:10)
[2018-11-04] MEDS: fluCOnazole (DIFLUCAN) 100 MG TAB PO SCH (10:10)
[2018-11-04] MEDS: CYANOCOBALAMIN 1,000 MCG (VITAMIN B-12) TABLET PO SCH (10:11)
[2018-11-04] MEDS: PANTOPRAZOLE 20 MG TABLET (PROTONIX) PO SCH (10:11)
[2018-11-04] MEDS: meTOprolol SUCCINATE 100 MG (TOPROL XL) TAB PO SCH ×2 (10:11→20:35)
[2018-11-04] MEDS: toPIRamate 25 MG (TOPAMAX) TAB PO SCH ×2 (10:11→20:32)
[2018-11-04] MEDS: ENOXAPARIN 60 MG/0.6 ML (LOVENOX) SYR SC SCH ×2 (10:12→20:35)
[2018-11-04] MEDS: MICONAZOLE 2% POWDER (DESENEX AF) 90 GM TOP SCH ×2 (10:13→20:35)
--- NOTE | 2018-11-04 13:06 | Progress Note-Hospitalist ---
Subjective HPI/CC On Admission Date Seen by Provider: November 04, 2018 Time Seen by Provider: 10:30 This is a 63-year-old white male with multiple medical problems who presents to the emergency room with complaints of a temperature of 102 for the last 3-4 days. In the last 2 days he's broken out with a rash all over his abdomen. He complains a great deal of weakness as well. He is somewhat ambulatory but mostly is in a scooter or occasionally can ambulate short distances with a cane. He denies having had a previous infection of his abdomen like this. He denies having any inciting events that could've started this. He does note that he had been ill about 5 days ago before the rash started. He also notes that when they were transferring him yesterday he hit his tailbone on the guard rail of the bed and thinks it may be broken. Subjective/Events-last exam Patient reports she continues to feel better with no abdominal wall pain and no chills or fever. Objective Exam Vital Signs Vital Signs Date Time Temp Pulse Resp B/P (MAP) Pulse Ox O2 Delivery O2 Flow Rate FiO2 11/04/18 08:00 97.2 72 18 130/87 (101) 96 Nasal Cannula 2.00 11/03/18 12:03 97 Capillary Refill : Less Than 3 Seconds General Appearance: No Apparent Distress, Chronically ill, Obese HEENT: PERRL/EOMI, Normal ENT Inspection Neck: Normal Inspection, Non Tender Respiratory: Chest Non Tender, No Accessory Muscle Use, No Respiratory Distress Cardiovascular: No Gallop, No Murmur, Irregularly Irregular Gastrointestinal: Distended, Tenderness, Other Rectal: Deferred Genital/Rectal: Other (GENITAL AREA WITH GENERAL NORMAL APPEARANCE. NO SWELLING OR ERYTHEMA OR EVIDENCE OF INFECTION. NO SORES/OPEN WOUNDS, ETC. 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 Imaging: Reviewed Imaging Report Assessment/Plan Assessment and Plan Assess & Plan/Chief Complaint /P1. Severe panniculitis responding to antibiotic therapy continue likely discharge on Monday with home health care. Patient has finished a week of IV antibiotic therapy will switch to by mouth cephalexin. 2. Type II diabetes mellitus under reasonable control. Clinical Quality Measures DVT/VTE Risk/Contraindication: Risk Factor Score Per Nursin RFS Level Per Nursing on Admit: 4+=Very High LEONARD QUESADA MD November 04, 2018 13:06
[2018-11-04 15:47] VITALS: BP 131/84
[2018-11-04] MEDS: CEPHALEXIN 250 MG (KEFLEX) CAP PO SCH ×2 (16:29→20:32)
--- NOTE | 2018-11-04 18:13 | Cardiology Progress Note ---
Cardiology SOAP Progress Note Subjective: No significant cardiac symptoms. Objective: I&O/Vital Signs 11/04/18 11/04/18 11/04/18 11/04/18 06:48 08:00 08:00 15:47 Temp 97.2 97.0 Pulse 72 60 Resp 18 20 B/P (MAP) 130/87 (101) 131/84 (100) Pulse Ox 96 97 O2 Delivery Nasal Cannula Nasal Cannula Nasal Cannula Nasal Cannula O2 Flow Rate 4.00 2.00 2.00 2.00 11/04/18 00:00 Intake Total 2930 ml Output Total 850 ml Balance 2080 ml Weight (Pounds): 448 Weight (Ounces): 0.0 Weight (Calculated Kilograms): 203.497529 Constitutional: AAO x 3, well-developed, well-nourished, other (morbid obesity) Respiratory: No accessory muscle use; other (fair bilat air enty, diminished at the bases) Cardiovascular: regular rate-rhythm, S1 and S2, systolic murmur (faint MANUEL at card base) Gastrointestional: No tender; soft; No guarding; rebound, other (marked redness of infra-umbilical abdominal wall and the inguinal region with mild swelling) Extremities: other (reddish-blue discoloration of the legs and feet); No clubbing, No cyanosis; significant edema (moderate, bilat leg edema that is pitting and non-pitting) Neurologic/Psychiatric: no motor/sensory deficits, alert, normal mood/affect, oriented x 3, grossly intact, power is 5/5 both on sides Skin: other (see above under GI and Extremities exam) Results/Procedures: Labs Laboratory Tests 11/03/18 21:03: Glucometer 214H 11/04/18 05:17: White Blood Count 10.3, Red Blood Count 4.55, Hemoglobin 12.8L, Hematocrit 41, Mean Corpuscular Volume 90, Mean Corpuscular Hemoglobin 28, Mean Corpuscular Hemoglobin Concent 31L, Red Cell Distribution Width 15.1H, Platelet Count 226, Mean Platelet Volume 9.7, Neutrophils (%) (Auto) 74, Lymphocytes (%) (Auto) 16, Monocytes (%) (Auto) 8, Eosinophils (%) (Auto) 1, Basophils (%) (Auto) 0, Neutrophils # (Auto) 7.6, Lymphocytes # (Auto) 1.7, Monocytes # (Auto) 0.8, Eosinophils # (Auto) 0.1, Basophils # (Auto) 0.0, Sodium Level 141, Potassium Level 3.8, Chloride Level 110H, Carbon Dioxide Level 20L, Anion Gap 11, Blood Urea Nitrogen 15, Creatinine 1.69H, Estimat Glomerular Filtration Rate 41, BUN/ Creatinine Ratio 9, Glucose Level 183H, Calcium Level 8.6, Phosphorus Level 2.7 , Magnesium Level 1.6L 11/04/18 11:44: Glucometer 214H 11/04/18 15:45: Glucometer 218H Microbiology 10/27/18 Blood Culture - Final, Complete No growth 10/29/18 C. difficile GDH Antigen & Toxins - Final, Complete 10/30/18 MRSA Screen - Final, Complete MRSA not isolated 10/30/18 Urine Culture - Final, Complete NO GROWTH A/P: Assessment/Dx: acute panniculits with sepsis and septic shock, significant improvement. WENCESLAO stage 2 superimposed on CKD stage 2 Chronic systolic CHF due to dilated cardiomyopathy. Echo of 10/29/18: LVEF 30-5%, AoV scl w/o stenoses, PASP 25 mmHg MPI on 02/14/17: LVEF 30%, mod cardiomegaly, no distinct evidence of ischemia or infarction Morbid obesity with obesity-hypoventilation and RORY syndrome Quit smoking in the 1980s DM II with diabetic nephropathy Hyperlipidemia, by history Chronic back pain Chronic leg swelling, likely related to venous insuff Symptoms of claudication, but seg pressures of 09/01/17 did not show any significant obstructive disease of the legs Plan: * Hold off on nephrotoxic agents, such as ARBs and CYRUS-inhib * WENCESLAO and panniculitis appear improved, but not resolved * Replenish K * Advised close outpt f/u post d/c Thank you for your consultation. Please call me if you have any questions. Trey Barron MD, FACP, FACC, FSCAI, FHRS, CCDS Interventional Cardiology Cardiac Electrophysiology Vascular Medicine and Endovascular Interventions Leonides BARRON MD November 04, 2018 18:13
[2018-11-04] MEDS: GABAPENTIN 300 MG (NEURONTIN) CAP PO SCH (20:34)
[2018-11-04] MEDS: HYDROcodone/APAP 5 MG/325 MG (LORTAB) TAB PO PRN (23:13)
[2018-11-04 23:51] VITALS: BP 119/74
[2018-11-05 05:31] LABS: CALCIUM 8.7 MG/DL (8.5-10.1); CREATININE SERUM 1.72 MG/DL (0.60-1.30); POTASSIUM 4.2 MMOL/L (3.6-5.0)
[2018-11-05] MEDS: LEVOTHYROXINE 150 MCG (LEVOTHROID) TAB PO SCH (05:44)
[2018-11-05] MEDS: inSUlin ASPART (NovoLOG) 1 UNIT/0.01 ML (CHARGE PER UNIT) SC SCH (05:44)
[2018-11-05 08:00] VITALS: BP 129/75
--- NOTE | 2018-11-05 08:19 | NUR ---
Prior to a.m. medications b/p was 129/75 and pulse 70.
[2018-11-05] MEDS: ENOXAPARIN 60 MG/0.6 ML (LOVENOX) SYR SC SCH (08:44)
[2018-11-05] MEDS: meTOprolol SUCCINATE 100 MG (TOPROL XL) TAB PO SCH (08:44)
[2018-11-05] MEDS: PANTOPRAZOLE 20 MG TABLET (PROTONIX) PO SCH (08:44)
[2018-11-05] MEDS: toPIRamate 25 MG (TOPAMAX) TAB PO SCH (08:44)
[2018-11-05] MEDS: fluCOnazole (DIFLUCAN) 100 MG TAB PO SCH (08:44)
[2018-11-05] MEDS: CEPHALEXIN 250 MG (KEFLEX) CAP PO SCH (08:44)
[2018-11-05] MEDS: CYANOCOBALAMIN 1,000 MCG (VITAMIN B-12) TABLET PO SCH (08:44)
[2018-11-05] MEDS: GABAPENTIN 100 MG (NEURONTIN) CAP PO SCH (08:45)
[2018-11-05] MEDS: MICONAZOLE 2% POWDER (DESENEX AF) 90 GM TOP SCH (08:45)
[2018-11-05] MEDS ORDERED: FLUC100T6 PO (09:19)
[2018-11-05] MEDS ORDERED: CEPH250C PO (09:19)
[2018-11-05] MEDS ORDERED: MICO90PO TOP (09:19)
--- NOTE | 2018-11-05 09:29 | Progress Note-Cardiology ---
Cardiology SOAP Progress Note Subjective: Sitting up in a chair at the bedside. States he felt some SOB early this morning, but after using his inhaler he feels it has improved. No c/o CP, palpitations, syncope or near syncope. Feels LE swelling is better today. Wants to go home. Objective: I&O/Vital Signs 11/04/18 11/04/18 11/05/18 11/05/18 22:06 23:51 08:00 08:00 Temp 96.7 97.0 Pulse 71 70 Resp 20 20 B/P (MAP) 119/74 (89) 129/75 (93) Pulse Ox 94 94 95 O2 Delivery NIV CPAP NIV CPAP Nasal Cannula NIV CPAP O2 Flow Rate 3.50 2.00 2.00 2.00 11/05/18 00:00 Intake Total 1925 ml Output Total 600 ml Balance 1325 ml Weight (Pounds): 448 Weight (Ounces): 2.0 Weight (Calculated Kilograms): 203.996046 Constitutional: AAO x 3, well-developed, well-nourished, other (morbid obesity) Respiratory: No accessory muscle use; other (fair bilat air enty, diminished at the bases) Cardiovascular: regular rate-rhythm, S1 and S2, systolic murmur (faint MANUEL at card base) Gastrointestional: No tender; soft; No guarding; rebound, other (marked redness of infra-umbilical abdominal wall and the inguinal region with mild swelling) Extremities: other (reddish-blue discoloration of the legs and feet); No clubbing, No cyanosis; significant edema (moderate, bilat leg edema that is pitting and non-pitting) Neurologic/Psychiatric: no motor/sensory deficits, alert, normal mood/affect, oriented x 3, grossly intact, power is 5/5 both on sides Skin: other (see above under GI and Extremities exam) Results/Procedures: Labs Laboratory Tests 11/04/18 11:44: Glucometer 214H 11/04/18 15:45: Glucometer 218H 11/04/18 19:52: Glucometer 244H 11/05/18 05:10: Sodium Level 140, Potassium Level 4.2, Chloride Level 110H, Carbon Dioxide Level 19L, Anion Gap 11, Blood Urea Nitrogen 18, Creatinine 1.72H, Estimat Glomerular Filtration Rate 40, BUN/Creatinine Ratio 10, Glucose Level 189H, Calcium Level 8.7 Microbiology 10/27/18 Blood Culture - Final, Complete No growth 10/29/18 C. difficile GDH Antigen & Toxins - Final, Complete 10/30/18 MRSA Screen - Final, Complete MRSA not isolated 10/30/18 Urine Culture - Final, Complete NO GROWTH Laboratory Tests 11/04/18 05:17 11/05/18 05:10 A/P: Assessment: Acute panniculits with sepsis and septic shock - improved WENCESLAO stage 2 superimposed on CKD stage 2 Chronic systolic CHF due to dilated cardiomyopathy. Echo of 10/29/18: LVEF 30-5%, AoV scl w/o stenoses, PASP 25 mmHg MPI on 02/14/17: LVEF 30%, mod cardiomegaly, no distinct evidence of ischemia or infarction Morbid obesity with obesity-hypoventilation and RORY syndrome Quit smoking in the 1980s DM II with diabetic nephropathy Hyperlipidemia, by history Chronic back pain Chronic leg swelling, likely related to venous insuff Symptoms of claudication, but seg pressures of 09/01/17 did not show any significant obstructive disease of the legs Plan: * Hold off on nephrotoxic agents, such as ARBs and CYRUS-inhib * WENCESLAO and panniculitis appear improved, but not resolved * Per medical services plan is to discharge home today * OK to discharge home from cardiac stand point * Continue current cardiac meds * Advise f/u in a week * Advise referral to nephrology services as an out pt MOLLY APPLE November 05, 2018 09:29
--- NOTE | 2018-11-05 09:50 | Progress Note-Hospitalist ---
Progress Note Dr Aparicio will complete the DC summary I placed DC orders for him. SELENE BAILEY DO November 05, 2018 09:50
[2018-11-05 09:55] VITALS: BP 129/75
--- NOTE | 2018-11-05 10:58 | NUR ---
PATIENT DU CATH REMOVED APPROXIMATELY AN HOUR AGO, HE HAS VOIDED 100MLS SINCE REMOVAL. SEE POST VOID RESIDUAL IN INTERVENTIONS Addendum: 11/05/18 at 1107 by TRIP MCCARTY RN POST VOID RESIDUAL WAS 14 MLS
== END 2018-11-05 11:07 | disposition home health service (06) | DRG 871 ==
LOC: EDUNIT# → ER 00:02 → 4TH 01:10 → ICU 10-28 18:54 → 4TH 10-31 10:20
PROVIDERS: ADMIT Internal Medicine; ATTEND Internal Medicine
PROC: 05H433Z Insertion of Infusion Device into Left Innominate Vein, Percutaneous Approach (ICD-10-PCS; principal; 2018-10-30)
DX: A41.9 Sepsis, unspecified organism (principal); R65.21 Severe sepsis with septic shock; M79.3 Panniculitis, unspecified; L03.311 Cellulitis of abdominal wall; N17.9 Acute kidney failure, unspecified; I42.0 Dilated cardiomyopathy; I50.22 Chronic systolic (congestive) heart failure; N39.0 Urinary tract infection, site not specified; E66.2 Morbid (severe) obesity with alveolar hypoventilation; I12.9 Hypertensive chronic kidney disease with stage 1 through stage 4 chronic kidney disease, or unspecified chronic kidney disease; E11.21 Type 2 diabetes mellitus with diabetic nephropathy; N18.2 Chronic kidney disease, stage 2 (mild); E11.65 Type 2 diabetes mellitus with hyperglycemia; E11.42 Type 2 diabetes mellitus with diabetic polyneuropathy; J44.9 Chronic obstructive pulmonary disease, unspecified; I25.10 Atherosclerotic heart disease of native coronary artery without angina pectoris; I25.2 Old myocardial infarction; E78.00 Pure hypercholesterolemia, unspecified; I87.2 Venous insufficiency (chronic) (peripheral); R80.9 Proteinuria, unspecified; E03.9 Hypothyroidism, unspecified; B37.2 Candidiasis of skin and nail; I87.8 Other specified disorders of veins; K21.9 Gastro-esophageal reflux disease without esophagitis; S39.92XA Unspecified injury of lower back, initial encounter; W22.8XXA Striking against or struck by other objects, initial encounter; Y92.009 Unspecified place in unspecified non-institutional (private) residence as the place of occurrence of the external cause; Z87.891 Personal history of nicotine dependence; Z86.73 Personal history of transient ischemic attack (TIA), and cerebral infarction without residual deficits
CPT/HCPCS: 36415; 36569; 71045; 76700; 76937; 80048; 80053; 80202; 81000; 82150; 82962; 83605; 83690; 83735; 83880; 84100; 85007; 85025; 85027; 85610; 85730; 87040; 87081; 87088; 87324; 87449; 93005; 93041; 93306; 94760; 96365; 96375

== ENCOUNTER → 2018-11-28 | Outpatient (CLI) | payer MEDICARE, OTHER ==
[~2018-11-28] MED LIST changes: +ACHD5005 PO; +CEPH250C PO; +FLUC100T6 PO; +GABA-486 PO; +LEVO300T5 PO; +METF-397 PO; +METO200T48 PO; +MICO90PO TOP; +POTA20TA15 PO; +TOPI50TA13 PO
[2018-11-28 12:16] LABS: CALCIUM 8.9 MG/DL (8.5-10.1); CREATININE SERUM 1.37 MG/DL (0.60-1.30); MAGNESIUM 1.1 MG/DL (1.8-2.4); POTASSIUM 4.8 MMOL/L (3.6-5.0)
== END ==
LOC: LAB 11:44
PROVIDERS: ATTEND Internal Medicine Cardiovascular Disease
DX: I11.0 Hypertensive heart disease with heart failure (principal); I50.23 Acute on chronic systolic (congestive) heart failure; I42.0 Dilated cardiomyopathy; G47.33 Obstructive sleep apnea (adult) (pediatric); R06.02 Shortness of breath; E66.9 Obesity, unspecified; Z68.43 Body mass index [BMI] 50.0-59.9, adult
CPT/HCPCS: 36415; 80048; 83735

== ENCOUNTER → 2018-12-05 | Outpatient (CLI) | payer OTHER | LOC: WOUNDCARE 13:11 | PROVIDERS: ATTEND Surgery | DX: I89.0 Lymphedema, not elsewhere classified (principal); I87.323 Chronic venous hypertension (idiopathic) with inflammation of bilateral lower extremity; I50.9 Heart failure, unspecified; E66.01 Morbid (severe) obesity due to excess calories; R68.89 Other general symptoms and signs | CPT/HCPCS: 99213 ==

== ENCOUNTER 2018-12-21 23:19 | Inpatient (IN) | payer MEDICARE, OTHER ==
[~2018-12-21] VITALS: Ht 188 cm; Wt 168.3 kg
[2018-12-21] MEDS ORDERED: methylPREDNISolone 125 MG (Solu-MEDROL) VIAL IV STA (23:29)
[2018-12-21] MEDS ORDERED: CEFEPIME INJECTION 1,000 MG in WATER (STERILE) FOR INJECTION 10 ML IV ONE (23:30)
[2018-12-21] MEDS ORDERED: ACETAMINOPHEN 500 MG TAB (TYLENOL) PO PRN (23:30)
--- NOTE | 2018-12-21 23:40 | NUR ---
i missed iv x 1
[2018-12-21 23:46] LABS: ABG OXYGEN SATURATION 78 % (94-100); ABG PCO2 40 MMHG (35-45); ABG PH 7.36 (7.37-7.43); ABG PO2 104 MMHG (79-93); ABG TCO2 22.2 MMOL/L (21.0-31.0)
[2018-12-21 23:47] LABS: ALLENS TEST YES-POS; INSPIRED O2 3L; VENTILATOR NO
[2018-12-22] VITALS (7 sets, daily range): BP systolic 104–136; BP diastolic 58–73
[2018-12-22] LABS: BILIRUBIN,URINE NEGATIVE (NEGATIVE); CLARITY,URINE CLEAR; COLOR,URINE YELLOW; GLUCOSE, URINE (UA) NEGATIVE (NEGATIVE); KETONES,URINE 1+ (NEGATIVE); LEUKOCYTE ESTERASE ,URINE 1+ (NEGATIVE); NITRITE,URINE NEGATIVE (NEGATIVE); PH,URINE 5 (5-9); PROTEIN,URINE 2+ (NEGATIVE); UROBILINOGEN,URINE NORMAL (NORMAL)
[2018-12-22 00:10] LABS: BASOPHILS % (AUTO) 0 % (0-10); EOSINOPHILS # (AUTO) 0.2 10^3/uL (0.0-0.3); EOSINOPHILS % (AUTO) 2 % (0-10); HEMATOCRIT 39 % (40-54); HEMOGLOBIN 12.4 G/DL (13.3-17.7); LYMPHOCYTES # (AUTO) 1.4 X 10^3 (1.0-4.0); LYMPHOCYTES % (AUTO) 9 % (12-44); MEAN CORPUSCULAR HEMOGLOBIN 28 PG (25-34); MEAN CORPUSCULAR HGB CONC 32 G/DL (32-36); MEAN CORPUSCULAR VOLUME 88 FL (80-99); MONOCYTES # (AUTO) 0.9 X 10^3 (0.0-1.0); MONOCYTES % (AUTO) 6 % (0-12); NEUTROPHILS # (AUTO) 12.4 X 10^3 (1.8-7.8); NEUTROPHILS % (AUTO) 83 % (42-75); PLATELET COUNT 236 10^3/uL (130-400); RED CELL DISTRIBUTION WIDTH 14.8 % (10.0-14.5)
[2018-12-22] MEDS ORDERED: IBUPROFEN 800 MG (MOTRIN) TAB PO ONE (00:15)
[2018-12-22 00:17] LABS: BACTERIA,URINE TRACE /HPF; WBC,URINE RARE /HPF
--- NOTE | 2018-12-22 00:19 | ED General ---
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 Urgent Care Nurse Practitioner ems advise on scene initial o2 sat 82% via personal cpap machine. Ems initiated cpap machine and o2 sat jackie to 98%. Upon arrival to ed RT in room and initiated vapotherm (18lpm) with initial o2 sat 95%. Initial oral temp 10.3.0. Bilat lower extremitiy edema noted with erythema. During triage pt noted to be verbally agressive towards staff and provider. Nursing Sepsis Screen: Possible Sepsis Risk Source of Information: Patient (EXREMELY DIFFICULT HISTORIAN--PT IS VERBALLY ABUSIVE AND EXTREMELY HOSTILE TOWARD ALL STAFF, FROM ARRIVAL. DOES NOT WANT TO ANSWER QUESTIONS, HE IS MAKING MULTITUDE OF DEMANDS ON ARRIVAL AND WILL NOT STOP TALKING / YELLING, TO EVEN LISTEN TO ANY QUESTIONS OR ANYTHING STAFF TELLS HIM TO ASSIST WITH HIS CARE. PT ALSO BEHAVING THIS WAY TOWARD EMS STAFF, ON ARRIVAL WELL. ), Old Records (ALL PMH IS FROM OLD CHART) History of Present Illness Date Seen by Provider: Dec 21, 2018 Time Seen by Provider: 23:15 Initial Comments PT ARRIVES VIA EMS FROM HOME PT WEARS HOME O2 AT 3L/NC AND HAS CPAP AT HOME PT CALLED EMS FOR SHORTNESS OF BREATH--O2 SAT WAS 82% ON THEIR ARRIVAL, ON HIS OWN CPAP EMS PLACED PT ON THEIR CPAP AND O2 SATS IMMEDIATELY UP TO 98-99%, BUT PT REFUSED TO KEEP IT ON FOR MORE THAN A FEW MINUTES AND TOOK IT OFF PT HAD TEMP OF 103.3. PT STATES HE WAS AWARE THAT HE HAD FEVER, BUT DOES NOT ANSWER QUESTIONS OF HOW LONG HE HAS HAD FEVER, OR IF HE TOOK HIS TEMP AT HOME OR IF HE TOOK ANYTHING FOR IT. PT HAS CHRONIC DYSPNEA, AND BECOMES VERY SHORT OF BREATH WITH MINIMAL MOVEMENT UNABLE TO OBTAIN ANY OTHER INFORMATION FROM PT DUE TO HIS CONSTANT RANTING, MULTIPLE DEMANDS ( NONE OF WHICH HAVE ANYTHING TO DO WITH HIS PRESENTING COMPLAINT) , AND VERBALLY ABUSIVE BEHAVIOR, VERY ARGUMENTATIVE ABOUT LITERALLY EVERY ASPECT OF CARE PT DOES NOT VOICE ANY COMPLAINTS OF SHORTNESS OF BREATH OR CHEST PAIN OR FEVER AT ANY OTHER TIME DURING ER STAY C/O CHRONIC BACK PAIN PT ADMITTED 10/27-11/05 FOR ABDOMINAL WALL CELLULITIS--THOSE SYMPTOMS APPEAR TO BE RESOLVED. 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 TAPIA Allergies and Home Medications Allergies Coded Allergies: meperidine (Verified Allergy, Unknown, 02/12/17) Uncoded Allergies: iv contrast (Adverse Reaction, Intermediate, 07/10/17) Home Medications Aspirin 81 Mg Tablet.dr, 81 MG PO DAILY, (Reported) Benazepril HCl 20 Mg Tablet, 2 TAB PO DAILY, (Reported) Cyanocobalamin (Vitamin B-12) 1,000 Mcg Tablet, 1,000 MCG PO DAILY, (Reported) Furosemide 40 Mg Tablet, 2 TAB PO DAILY, (Reported) Gabapentin 100 Mg Capsule, 100 MG PO DAILY, (Reported) Gabapentin 100 Mg Capsule, 300 MG PO HS, (Reported) Glipizide 10 Mg Tablet, 10 MG PO BID, (Reported) Hydrocodone Bit/Acetaminophen 1 Tab Tab, 1 TAB PO BID PRN for PAIN-MODERATE, (R eported) Levothyroxine Sodium 300 Mcg Tablet, 300 MCG PO DAILY, (Reported) Metformin HCl 500 Mg Tablet, 1,000 MG PO BID, (Reported) Metoprolol Succinate 100 Mg Tab.er.24h, 100 MG PO HS, (Reported) Metoprolol Succinate 200 Mg Tab.er.24h, 200 MG PO DAILY, (Reported) Omeprazole 20 Mg Capsule.dr, 20 MG PO DAILY, (Reported) Potassium Chloride 20 Meq Tablet.er, 20 MEQ PO DAILY, (Reported) Pravastatin Sodium 40 Mg Tablet, 20 MG PO HS, (Reported) Spironolactone 25 Mg Tablet, 25 MG PO DAILY, (Reported) Topiramate 50 Mg Tablet, 25 MG PO BID, (Reported) Patient Home Medication List Home Medication List Reviewed: Yes Review of Systems Review of Systems Constitutional: see HPI, fever Respiratory: see HPI Past Vddsoyp-Iqapnp-Dtekmm Hx Patient Social History Smoking Status: Former Smoker (1 PPD, QUIT ) Type Used: Cigarettes Former Smoker, Quit: Feb 13, 1987 2nd Hand Smoke Exposure: No Recent Foreign Travel: No Contact w/Someone Who Travel: No Recent Infectious Disease Expo: No Recent Hopitalizations: No Immunizations Up To Date Tetanus Booster (TDap): Unknown Date of Pneumonia Vaccine: Mar 29, 2017 Date of Influenza Vaccine: Mar 29, 2017 Seasonal Allergies Seasonal Allergies: No Past Medical History Surgeries: Yes (KNEE SURGERY, LEFT SHOULDER SURGERY, HERNIA REPAIR, ) Abdominal, Gallbladder, Orthopedic Respiratory: Yes (OBESITY-HYPOVENTILATION) Sleep Apnea, COPD Currently Using CPAP: Yes Currently Using BIPAP: No Cardiac: Yes (CHF) Cardiomyopathy, Chronic Edema/Swelling, Coronary Artery Disease, Heart Attack, High Cholesterol, Hypertension Neurological: Yes (TIA'S X 4; STROKE X 1) Neuropathy, Stroke, TIA Sexually Transmitted Disease: No HIV/AIDS: No Genitourinary: Yes Kidney Stones, Renal Failure Gastrointestinal: Yes Gastroesophageal Reflux Musculoskeletal: Yes (HIP FX; 2 TORN ROTATOR CUFFS; RIGHT HIP AND LOWER BACK PAIN ) Degenerate Disk Disease, Arthritis, Chronic Back Pain, Fractures Endocrine: Yes (MORBID OBESITY) Hypothyroidsim, Diabetes, Non-Insulin dep HEENT: Yes Cataract Cancer: No Psychosocial: No Integumentary: Yes (CELLULITIS; ABDOMINAL WALL CELLULITIS/PANNICULITIS) Blood Disorders: No Adverse Reaction/Blood Tranf: No Family Medical History Cardiovascular disease 19 FATHER 19 MOTHER Diabetes mellitus 19 FATHER 19 MOTHER Hypercholesterolemia 19 FATHER 19 MOTHER Hypertension 19 FATHER 19 MOTHER Myocardial infarction 19 FATHER 19 MOTHER Heart Disease, Diabetes, Hypertension Physical Exam Vital Signs Vital Signs - First Documented 12/22/18 03:49 FiO2 36 Capillary Refill : Less Than 3 Seconds Height, Weight, BMI Height: 6'2.00" Weight: 406lbs. 2.0oz. 184.166286fv; 53.6 BMI Method:Stated General Appearance: Obese (MORBIDLY OBESE), Other (PT VERY DYSPNEIC WITH MINIMAL EXERTION, SUCH CHANGING POSITIONS IN BED, BUT ABLE TO YELL AND TALK NON-STOP. PT EXTREMELY HOSTILE AND VERBALLY ABUSIVE TO ALL STAFF. PT LITERALLY YELLING FOR NURSE EVERY 5 MINUTES TO COME INTO ROOM FOR MULTITUDE OF DEMANDS--CHANGING POSITION IN BED, WATER, ETC--NOTHING THAT HAS TO DO WITH HIS PRESENTING COMPLAINT OF SHORTNESS OF BREATH WHEN HE CALLED EMS. PT VERY UNKEMPT AND MALODOROUS. VERY ARGUMENTATIVE ABOUT EVERY ASPECT OF CARE. MOANS/YELLS/WAILS WITH ANY MOVEMENT) HEENT: Other (POOR DENTITION) Respiratory: Other (PT VERY DYSPNEIC WITH MINIMAL EXERTION, SUCH CHANGING POSITION IN BED, BUT LUNGS ARE CLEAR TO AUSCULTATION. ) Cardiovascular: Tachycardia Gastrointestinal: Non Tender Neurologic/Psychiatric: Alert, Oriented x3, fabricator foam rubber II-XII Norm as Tested Skin: Other (EXTENSIVE CHRONIC VENOUS STASIS CHANGES TO BILATERAL LOWER LEGS, WITH SIGNIFICANT ERYTHEMA TO LOWER LEGS, WITH SOME BLISTER FORMATION AND OOZING OF SEROUS FLUID. FEET ARE PINK, WITH NO OBVIOUS FOOT ULCERATIONS. UNABLE TO DETERMINE DEGREE OF EDEMA DUE TO PT'S BODY HABITUS. ) Focused Exam Lactate Level 12/22/18 00:05: Lactic Acid Level 2.91*H 12/22/18 02:10: Lactic Acid Level 2.14*H Lactic Acid Level Progress/Results/Core Measures Suspected Sepsis Recent Fever Within 48 Hours: Yes Infection Criteria Present: Suspected New Infection New/Unexplained Altered Menta: No Sepsis Screen: Possible Sepsis Risk SIRS Temperature:103.0 Pulse: 125 Respiratory Rate: 30 Laboratory Tests 12/22/18 00:05: White Blood Count 15.0H 12/22/18 06:25: White Blood Count 18.4H Blood Pressure 167 /87 Mean: 113 12/22/18 00:05: Lactic Acid Level 2.91*H 12/22/18 02:10: Lactic Acid Level 2.14*H Laboratory Tests 12/22/18 00:05: Creatinine 1.19, INR Comment 1.1, Platelet Count 236, Total Bilirubin 1.0 12/22/18 06:25: Creatinine 1.31H, Platelet Count 199, Total Bilirubin 1.1H Results/Orders Lab Results Laboratory Tests Test 12/21/18 23:37 12/21/18 23:43 12/22/18 00:05 12/22/18 02:10 Range/Units Blood Gas Puncture Site LEFT RADIAL Blood Gas Patient Temperature 103.0 Arterial Blood pH 7.36 L 7.37-7.43 Arterial Blood Partial Pressure CO2 40 35-45 MMHG Arterial Blood Partial Pressure O2 104 H 79-93 MMHG Arterial Blood HCO3 21 L 23-27 MMOL/L Arterial Blood Total CO2 22.2 21.0-31.0 MMOL/L Arterial Blood Oxygen Saturation 78 L 94-100 % Arterial Blood Base Excess -3.0 L -2.5-2.5 MMOL/L Gene Test YES-POS Blood Gas Ventilator Setting NO Blood Gas Inspired Oxygen 3L Urine Color YELLOW Urine Clarity CLEAR Urine pH 5 5-9 Urine Specific [place] 1.020 1.016-1.022 Urine Protein 2+ H NEGATIVE Urine Glucose (UA) NEGATIVE NEGATIVE Urine Ketones 1+ H NEGATIVE Urine Nitrite NEGATIVE NEGATIVE Urine Bilirubin NEGATIVE NEGATIVE Urine Urobilinogen NORMAL NORMAL MG/DL Urine Leukocyte Esterase 1+ H NEGATIVE Urine RBC (Auto) 2+ H NEGATIVE Urine RBC NONE /HPF Urine WBC RARE /HPF Urine Squamous Epithelial Cells 2-5 /HPF Urine Crystals NONE /LPF Urine Bacteria TRACE /HPF Urine Casts NONE /LPF Urine Mucus SMALL H /LPF Urine Culture Indicated CULTURE PENDING White Blood Count 15.0 H 4.3-11.0 10^3/uL Red Blood Count 4.45 4.35-5.85 10^6/uL Hemoglobin 12.4 L 13.3-17.7 G/DL Hematocrit 39 L 40-54 % Mean Corpuscular Volume 88 80-99 FL Mean Corpuscular Hemoglobin 28 25-34 PG Mean Corpuscular Hemoglobin Concent 32 32-36 G/DL Red Cell Distribution Width 14.8 H 10.0-14.5 % Platelet Count 236 130-400 10^3/uL Mean Platelet Volume 10.0 7.4-10.4 FL Neutrophils (%) (Auto) 83 H 42-75 % Lymphocytes (%) (Auto) 9 L 12-44 % Monocytes (%) (Auto) 6 0-12 % Eosinophils (%) (Auto) 2 0-10 % Basophils (%) (Auto) 0 0-10 % Neutrophils # (Auto) 12.4 H 1.8-7.8 X 10^3 Lymphocytes # (Auto) 1.4 1.0-4.0 X 10^3 Monocytes # (Auto) 0.9 0.0-1.0 X 10^3 Eosinophils # (Auto) 0.2 0.0-0.3 10^3/uL Basophils # (Auto) 0.0 0.0-0.1 10^3/uL Neutrophils % (Manual) 85 % Lymphocytes % (Manual) 6 % Monocytes % (Manual) 4 % Eosinophils % (Manual) 2 % Band Neutrophils 3 % Blood Morphology Comment NORMAL Prothrombin Time 14.6 12.2-14.7 SEC INR Comment 1.1 0.8-1.4 Activated Partial Thromboplast Time 32 24-35 SEC Sodium Level 135 135-145 MMOL/L Potassium Level 4.5 3.6-5.0 MMOL/L Chloride Level 103 98-107 MMOL/L Carbon Dioxide Level 19 L 21-32 MMOL/L Anion Gap 13 5-14 MMOL/L Blood Urea Nitrogen 26 H 7-18 MG/DL Creatinine 1.19 0.60-1.30 MG/DL Estimat Glomerular Filtration Rate > 60 BUN/Creatinine Ratio 22 Glucose Level 216 H 70-105 MG/DL Lactic Acid Level 2.91 *H 2.14 *H 0.50-2.00 MMOL/L Calcium Level 9.4 8.5-10.1 MG/DL Corrected Calcium 9.5 8.5-10.1 MG/DL Magnesium Level 1.5 L 1.8-2.4 MG/DL Total Bilirubin 1.0 0.1-1.0 MG/DL Aspartate Amino Transf (AST/SGOT) 22 5-34 U/L Alanine Aminotransferase (ALT/SGPT) 21 0-55 U/L Alkaline Phosphatase 200 H 40-136 U/L Troponin I 0.060 H <0.028 NG/ML B-Type Natriuretic Peptide 320.7 H <100.0 PG/ML Total Protein 8.1 6.4-8.2 GM/DL Albumin 3.9 3.2-4.5 GM/DL Test 12/22/18 04:14 12/22/18 06:02 12/22/18 06:25 12/22/18 11:37 Range/Units Glucometer 298 H 340 H 391 H 70-110 MG/DL White Blood Count 18.4 H 4.3-11.0 10^3/uL Red Blood Count 4.18 L 4.35-5.85 10^6/uL Hemoglobin 11.8 L 13.3-17.7 G/DL Hematocrit 37 L 40-54 % Mean Corpuscular Volume 89 80-99 FL Mean Corpuscular Hemoglobin 28 25-34 PG Mean Corpuscular Hemoglobin Concent 32 32-36 G/DL Red Cell Distribution Width 14.6 H 10.0-14.5 % Platelet Count 199 130-400 10^3/uL Mean Platelet Volume 10.0 7.4-10.4 FL Neutrophils (%) (Auto) 93 H 42-75 % Lymphocytes (%) (Auto) 4 L 12-44 % Monocytes (%) (Auto) 3 0-12 % Eosinophils (%) (Auto) 0 0-10 % Basophils (%) (Auto) 0 0-10 % Neutrophils # (Auto) 17.0 H 1.8-7.8 X 10^3 Lymphocytes # (Auto) 0.7 L 1.0-4.0 X 10^3 Monocytes # (Auto) 0.6 0.0-1.0 X 10^3 Eosinophils # (Auto) 0.0 0.0-0.3 10^3/uL Basophils # (Auto) 0.0 0.0-0.1 10^3/uL Sodium Level 135 135-145 MMOL/L Potassium Level 4.6 3.6-5.0 MMOL/L Chloride Level 103 98-107 MMOL/L Carbon Dioxide Level 19 L 21-32 MMOL/L Anion Gap 13 5-14 MMOL/L Blood Urea Nitrogen 27 H 7-18 MG/DL Creatinine 1.31 H 0.60-1.30 MG/DL Estimat Glomerular Filtration Rate 55 BUN/Creatinine Ratio 21 Glucose Level 359 H 70-105 MG/DL Calcium Level 9.0 8.5-10.1 MG/DL Corrected Calcium 9.4 8.5-10.1 MG/DL Magnesium Level 1.9 1.8-2.4 MG/DL Total Bilirubin 1.1 H 0.1-1.0 MG/DL Aspartate Amino Transf (AST/SGOT) 24 5-34 U/L Alanine Aminotransferase (ALT/SGPT) 23 0-55 U/L Alkaline Phosphatase 195 H 40-136 U/L Troponin I 0.034 H <0.028 NG/ML Total Protein 7.5 6.4-8.2 GM/DL Albumin 3.5 3.2-4.5 GM/DL Test 12/22/18 16:07 Range/Units Glucometer 479 *H 70-110 MG/DL Micro Results Microbiology 12/22/18 Blood Culture - Preliminary, Resulted No growth 12/22/18 Blood Culture - Preliminary, Resulted No growth My Orders Orders - BREANN WING DO Ed Iv/Invasive Line Start (12/21/18 23:29) Ekg Tracing (12/21/18 23:29) O2 (12/21/18 23:29) Monitor-Rhythm Ecg Trace Only (12/21/18 23:29) Arterial Blood Gas (12/21/18 23:29) BNP (12/21/18 23:29) Cbc With Automated Diff (12/21/18 23:29) Comprehensive Metabolic Panel (12/21/18 23:29) Lactic Acid Analyzer (12/21/18 23:29) Magnesium (12/21/18 23:29) Protime With Inr (12/21/18 23:29) Partial Thromboplastin Time (12/21/18 23:29) Troponin I (12/21/18 23:29) Ua Culture If Indicated (12/21/18 23:29) Blood Culture (12/21/18 23:29) Sputum Culture (12/21/18 23:29) Urine Culture (12/21/18 23:29) Acetaminophen Tablet (Tylenol Tablet) (12/21/18 23:30) Ed Iv/Invasive Line Start (12/21/18 23:29) Ed Iv/Invasive Line Start (12/21/18 23:29) Vital Signs Adult Sepsis Patie Q15M (12/21/18 23:29) O2 (12/21/18 23:29) Remove Rings In Anticipation O (12/21/18 23:29) Cefepime Injection (Maxipime Injection) (12/21/18 23:30) Rt Request For Service (12/21/18 23:29) Methylprednisolone Sod Succ (Solu-Medrol (12/21/18 23:29) Chest 1 View, Ap/Pa Only (12/22/18 00:01) Ibuprofen Tablet (Motrin Tablet) (12/22/18 00:15) Manual Differential (12/22/18 00:05) Vancomycin Injection (Vancomycin Injecti (12/22/18 00:45) Magnesium 1 Gm/100 Ml Ivpb (Magnesium Deras (12/22/18 01:00) Furosemide Injection (Lasix Injection) (12/22/18 01:45) Enoxaparin Injection (Lovenox Injection) (12/22/18 02:15) Arterial Blood Draw (12/21/18 ) Medications Given in ED Vital Signs/I&O 12/22/18 12/22/18 12/22/18 12/22/18 07:55 08:00 08:00 09:29 Temp 98.5 Pulse 88 86 Resp 24 B/P (MAP) 104/58 (73) Pulse Ox 95 95 95 O2 Delivery Nasal Cannula Nasal Cannula Nasal Cannula O2 Flow Rate 4.00 4.00 4.00 12/22/18 12/22/18 12/22/18 12:00 13:00 16:00 Temp 98.5 97.9 Pulse 88 79 83 Resp 22 18 B/P (MAP) 134/61 (85) 112/65 (81) Pulse Ox 92 94 O2 Delivery Nasal Cannula Room Air O2 Flow Rate 4.00 Capillary Refill : Less Than 3 Seconds Blood Pressure Mean: 113 Progress Note : Progress Note PT IMMEDIATELY PLACED ON VAPOTHERM, PT REFUSES CPAP THEN SHORTLY AFTER ARRIVAL. PT WAS WEANED BACK TO HIS NORMAL O2 AT 3L/NC NO DETERIORATION IN PT'S CONDITION DURING ER STAY TEMP DOWN HEART RATE DOWN O2 SATS REMAINED IN MID 90'S ON 3L/NC PT REFUSES CPAP PT REFUSES LASIX ECG Initial ECG Impression Date: Dec 21, 2018 Initial ECG Impression Time: 23:43 Initial ECG Rate: 123 Initial ECG Rhythm: S.Tach Diagnostic Imaging Comments CXR--POOR AERATION/POOR INSPIRATORY EFFORT, CARDIOMEGALY, NO OBVIOUS ACUTE PROCESS--PENDING RADIOLOGIST REVIEW Reviewed: Reviewed by Me Departure Communication (Admissions) [id number]--SPOKE WITH DR. QUESADA, HOSPITALIST, ACCEPTS PT FOR ADMIT Impression Primary Impression: Bilateral lower leg cellulitis Additional Impressions: COPD with hypoxia ELEVATED TROPONIN AND BNP NIDDM Sepsis Morbid obesity Hypomagnesemia CHRONIC PAIN COMPLAINTS Obesity hypoventilation syndrome HTN CHF (congestive heart failure) Disposition: 09 ADMITTED INPATIENT Condition: Improved Admissions Decision to Admit Reason: Admit from ER (General) Decision to Admit/Date: Dec 22, 2018 Time/Decision to Admit Time: 01:35 Departure-Patient Inst. Referrals: NO,LOCAL PHYSICIAN (PCP/Family) Primary Care Physician BREANN WING DO Dec 22, 2018 00:19
[2018-12-22 00:28] LABS: INR 1.1 (0.8-1.4); PROTHROMBIN TIME PATIENT 14.6 SEC (12.2-14.7)
[2018-12-22 00:34] LABS: ALANINE AMINOTRANSFERASE 21 U/L (0-55); ALBUMIN 3.9 GM/DL (3.2-4.5); ALKALINE PHOSPHATASE 200 U/L (40-136); BUN/CREATININE RATIO 22; CALCIUM 9.4 MG/DL (8.5-10.1); CARBON DIOXIDE 19 MMOL/L (21-32); CHLORIDE 103 MMOL/L (98-107); CREATININE SERUM 1.19 MG/DL (0.60-1.30); GFR ESTIMATED > 60; GLUCOSE 216 MG/DL (70-105); MAGNESIUM 1.5 MG/DL (1.8-2.4); POTASSIUM 4.5 MMOL/L (3.6-5.0); SODIUM 135 MMOL/L (135-145); TOTAL PROTEIN 8.1 GM/DL (6.4-8.2)
[2018-12-22 00:43] LABS: BAND NEUTROPHILS 3 %; EOSINOPHILS % (MANUAL) 2 %; LYMPHOCYTES % (MANUAL) 6 %; MONOCYTES % (MANUAL) 4 %; NEUTROPHILS % (MANUAL) 85 %; RBC MORPH NORMAL
[2018-12-22] MEDS ORDERED: VANCOMYCIN INJECTION 1,000 MG in NS (IVPB) 250 ML IV SCH (00:45)
[2018-12-22] MEDS ORDERED: FUROSEMIDE 40 MG/4 ML INJ (LASIX) IVP ONE (01:45)
[2018-12-22] MEDS: MAGNESIUM 1 GM/100 ML IVPB 100 ML IV SCH ×2 (01:54→02:52)
[2018-12-22] MEDS ORDERED: ENOXAPARIN 60 MG/0.6 ML (LOVENOX) SYR SC ONE (02:15)
--- NOTE | 2018-12-22 02:50 | NUR ---
LONG YANEZ S admitted to room 433-1, with an admitting diagnosis of CELLULITIS, COPD, on 12/22/18 from ED via CART, accompanied by STAFF.LONG YANEZ introduced to surroundings, call light, bed controls, phone, TV, temperature control, lights, meal times, smoking policy, visitor policy, side rail policy, bathrooms and showers. Patient Rights given to patient in the handbook. LONG YANEZ verbalizes understanding that [facility] is not responsible for the loss or damage to any personal effects or valuables that are kept in the patients posession during their hospitalization.
[2018-12-22] MEDS ORDERED: PIPERACILLIN/TAZO 4.5 GM/NS 100 ML IV ONE ×2 (03:00)
[2018-12-22] MEDS ORDERED: IBUPROFEN 800 MG (MOTRIN) TAB PO PRN (03:00)
[2018-12-22] MEDS ORDERED: VANCOMYCIN 2000 MG/NS 500 ML IVPB IV ONE ×2 (03:00)
[2018-12-22] MEDS ORDERED: ACETAMINOPHEN 500 MG TAB (TYLENOL) PO PRN (03:00)
[2018-12-22] MEDS ORDERED: NS (IVPB) 100 ML ONE (03:48)
[2018-12-22] MEDS ORDERED: PIPERACILLIN/TAZO 4.5 GM VIAL (ZOSYN) IV ONE (03:48)
[2018-12-22] MEDS ORDERED: VANCOMYCIN 1000 MG/VIAL ONE (03:54)
[2018-12-22] MEDS ORDERED: RT-ALBUTEROL/IPRATROPIUM 3 ML (DUONEB) VIAL INH PRN (04:00)
[2018-12-22] MEDS ORDERED: NS IV 500 ML 500 ML ONE (04:03)
[2018-12-22] MEDS: inSUlin ASPART (NovoLOG) 1 UNIT/0.01 ML (CHARGE PER UNIT) SC SCH ×3 (06:17→20:56)
[2018-12-22 06:32] LABS: BASOPHILS % (AUTO) 0 % (0-10); EOSINOPHILS % (AUTO) 0 % (0-10); HEMATOCRIT 37 % (40-54); HEMOGLOBIN 11.8 G/DL (13.3-17.7); LYMPHOCYTES # (AUTO) 0.7 X 10^3 (1.0-4.0); LYMPHOCYTES % (AUTO) 4 % (12-44); MEAN CORPUSCULAR HEMOGLOBIN 28 PG (25-34); MEAN CORPUSCULAR HGB CONC 32 G/DL (32-36); MEAN CORPUSCULAR VOLUME 89 FL (80-99); MONOCYTES # (AUTO) 0.6 X 10^3 (0.0-1.0); MONOCYTES % (AUTO) 3 % (0-12); NEUTROPHILS % (AUTO) 93 % (42-75); PLATELET COUNT 199 10^3/uL (130-400); RED CELL DISTRIBUTION WIDTH 14.6 % (10.0-14.5); WHITE BLOOD COUNT 18.4 10^3/uL (4.3-11.0)
[2018-12-22 06:50] LABS: ALBUMIN 3.5 GM/DL (3.2-4.5); BILIRUBIN,TOTAL 1.1 MG/DL (0.1-1.0); CREATININE SERUM 1.31 MG/DL (0.60-1.30); MAGNESIUM 1.9 MG/DL (1.8-2.4); POTASSIUM 4.6 MMOL/L (3.6-5.0); TOTAL PROTEIN 7.5 GM/DL (6.4-8.2)
--- NOTE | 2018-12-22 07:36 | Diagnostic Imaging Report ---
INDICATION: Cardiac enlargement, shortness of breath COMPARISON: 11/01/2018 FINDINGS: Single view of the chest demonstrates stable cardiac enlargement without pulmonary edema, effusion or pneumothorax. Osseous structures stable. IMPRESSION: Stable cardiac enlargement without pulmonary edema or infiltrate. Dictated by: Dictated on workstation # [id number]
--- NOTE | 2018-12-22 07:42 | NUR ---
Vanco - patient loading dose of 2gm at 0300, 12/22. Will start 1250mg every 8 hours at 12 noon. Trough prior to 4th dose, 12/23 @ 1100.
[2018-12-22] MEDS ORDERED: LEVOTHYROXINE 150 MCG (LEVOTHROID) TAB PO ONE (07:45)
[2018-12-22] MEDS: RT-ALBUTEROL/IPRATROPIUM 3 ML (DUONEB) VIAL INH SCH ×2 (07:52→19:29)
[2018-12-22] MEDS: ENOXAPARIN 60 MG/0.6 ML (LOVENOX) SYR SC SCH ×2 (09:31→20:56)
[2018-12-22] MEDS: meTOprolol SUCCINATE 100 MG (TOPROL XL) TAB PO SCH ×2 (09:38→20:56)
[2018-12-22] MEDS: PIPERACILLIN/TAZO 4.5 GM/NS 100 ML IV SCH ×4 (09:51→17:08)
--- NOTE | 2018-12-22 11:56 | History & Physical-Hospitalist ---
History of Present Illness HPI/Chief Complaint PT ARRIVES VIA EMS FROM HOME PT WEARS HOME O2 AT 3L/NC AND HAS CPAP AT HOME PT CALLED EMS FOR SHORTNESS OF BREATH--O2 SAT WAS 82% ON THEIR ARRIVAL, ON HIS OWN CPAP EMS PLACED PT ON THEIR CPAP AND O2 SATS IMMEDIATELY UP TO 98-99%, BUT PT REFUSED TO KEEP IT ON FOR MORE THAN A FEW MINUTES AND TOOK IT OFF PT HAD TEMP OF 103.3. PT STATES HE WAS AWARE THAT HE HAD FEVER, BUT DOES NOT ANSWER QUESTION OF HOW LONG HE HAS HAD FEVER, OR IF HE TOOK HIS TEMP AT HOME OR IF HE TOOK ANYTHING FOR IT. PT HAS CHRONIC DYSPNEA, AND BECOMES VERY SHORT OF BREATH WITH MINIMAL MOVMENt. this morning patient is feeling better and temperature is down he denies shortness of breath. He has some mild bilateral lower leg discomfort and denies any abdominal pain or any of the symptoms that he had with abdominal panniculitis that he had this last admission secondary to reported Staphylococcus aureus. He denies chest symptoms cough congestion sputum production and denies chest pain other than Reiger's last night he had not been having any previous night sweats chills fever and it been back to baseline level per his report. He also denied dysuria or increased frequency Date Seen 12/22/18 Time Seen by a Provider: 10:00 Attending Physician Leonard Quesada MD PCP Hilda Gonzales Referring Physician Date of Admission Dec 22, 2018 at 01:35 Home Medications & Allergies Home Medications Reviewed patient Home Medication Reconciliation performed by pharmacy medication reconciliations cell technician and/or nursing. Patients Allergies have been reviewed. Allergies Allergies Coded Allergies meperidine (Verified Allergy, Unknown, 02/12/17) Uncoded Allergies iv contrast ( Adverse Reaction, Intermediate, 07/10/17) Past [id number]-Ihttwv-[id number] Hx Past Med/Social Hx: Reviewed and Corrections made Patient Social History Alcohol Use: Denies Use Recreational Drug Use: No Smoking Status: Former Smoker Former Smoker, Quit: Feb 13, 1987 Type Used: Cigarettes 2nd Hand Smoke Exposure: No Recent Foreign Travel: No Contact w/other who traveled: No Recent Hopitalizations: No Recent Infectious Disease Expo: No Immunizations Up To Date Tetanus Booster (TDap): Unknown Date of Pneumonia Vaccine: Mar 29, 2017 Date of Influenza Vaccine: Mar 29, 2017 Seasonal Allergies Seasonal Allergies: No Past Medical History Surgeries: Abdominal, Gallbladder, Orthopedic Currently Using CPAP: Yes Currently Using BIPAP: No Cardiac: Cardiomyopathy, Chronic Edema/Swelling, Coronary Artery Disease, Heart Attack, High Cholesterol, Hypertension Neurological: Neuropathy, Stroke, TIA Sexually Transmitted Disease: No HIV/AIDS: No Genitourinary: Kidney Stones, Renal Failure Gastrointestinal: Gastroesophageal Reflux Musculoskeletal: Degenerate Disk Disease, Arthritis, Chronic Back Pain, Fractures Endocrine: Hypothyroidsim, Diabetes, Non-Insulin dep HEENT: Cataract Skin/Integumentary: Recent Skin Changes History of Blood Disorders: No Adverse Reaction to Blood Pratt: No Family History Cardiovascular disease 19 FATHER 19 MOTHER Diabetes mellitus 19 FATHER 19 MOTHER Hypercholesterolemia 19 FATHER 19 MOTHER Hypertension 19 FATHER 19 MOTHER Myocardial infarction 19 FATHER 19 MOTHER Heart Disease, Diabetes, Hypertension Review of Systems Constitutional: chills, diaphoresis, fever, malaise Respiratory: no symptoms reported, see HPI Cardiovascular: no symptoms reported, see HPI Genitourinary: no symptoms reported, see HPI Physical Exam Physical Exam Vital Signs Vital Signs - First Documented 12/22/18 03:49 FiO2 36 Capillary Refill : Less Than 3 Seconds Height, Weight, BMI Height: 6'2.00" Weight: 421lbs. 9.0oz. 191.695592kb; 52.1 BMI Method:Stated General Appearance: No Apparent Distress, Obese Neck: Full Range of Motion, Normal Inspection, Non Tender Respiratory: Chest Non Tender, Lungs Clear, Normal Breath Sounds, No Accessory Muscle Use, No Respiratory Distress Cardiovascular: Regular Rate, Rhythm, No Edema, No Gallop, No JVD, No Murmur, Normal Peripheral Pulses, Other (heart sounds somewhat distant aggravated by morbid obesity most likely) Gastrointestinal: Normal Bowel Sounds, No Organomegaly, No Pulsatile Mass, Non Tender, Soft, Other (no particular erythema noted) Extremity: Other (bilateral erythema is noted to the mid tibia with some vesicles of the lower tibia there is tenderness present in the mid tibia but no pain erythema or induration above this level thighs are nontender no open ulceration is noted. No drainage apparent 2-3+ brawny edema to the mid tibia) Neurologic/Psychiatric: Alert, Oriented x3 Skin: Normal Color, Warm/Dry Results Results/Procedures Labs Laboratory Tests 12/22/18 00:05 12/22/18 06:25 Patient resulted labs reviewed. Assessment/Plan Admission Diagnosis A/P 1. Fever and leukocytosis most likely secondary to cellulitis blood cultures pending no evidence for any other source. There is no evidence to suggest recurrence of panniculitis. For now continue broad-spectrum antibiotic coverage with vancomycin and cefepime. Anaerobic bacterial etiologies highly unlikely with no evidence for any foot wounds. 2. Type II diabetes mellitus with peripheral neuropathy. 3. Obesity hypoventilation syndrome stable with obstructive sleep apnea. 4. Minimal troponin elevation likely due to so-called type II SC from the stress of cellulitis infection and high fever, no evidence for acute coronary syndrome no ischemic EKG changes continue conservative medical management. Admission Status: Inpatient Order (span 2 midnights) Reason for Inpatient Admission: see assessment and plan Clinical Quality Measures DVT/VTE Risk/Contraindication: Risk Factor Score Per Nursin RFS Level Per Nursing on Admit: 4+=Very High LEONARD QUESADA MD Dec 22, 2018 11:56
[2018-12-22] MEDS ORDERED: BENA20TA7 PO (12:58)
[2018-12-22] MEDS ORDERED: METF-397 PO (12:58)
[2018-12-22] MEDS ORDERED: FURO-124 PO (12:58)
[2018-12-22] MEDS ORDERED: GLIP10TA13 PO (12:58)
[2018-12-22] MEDS ORDERED: SPIR25TA5 PO (12:58)
[2018-12-22] MEDS ORDERED: POTA-51 PO (12:58)
[2018-12-22] MEDS: VANCOMYCIN 1250 MG/NS 250 ML IVPB IV SCH ×4 (13:40→20:56)
[2018-12-22] MEDS ORDERED: inSUlin ASPART (NovoLOG) 1 UNIT/0.01 ML (CHARGE PER UNIT) SC ONE (16:30)
[2018-12-22] MEDS: metFORMIN 500 MG (GLUCOPHAGE) TAB PO SCH (16:35)
[2018-12-22] MEDS: toPIRamate 25 MG (TOPAMAX) TAB PO SCH (20:56)
[2018-12-22] MEDS: GABAPENTIN 300 MG (NEURONTIN) CAP PO SCH (20:56)
[2018-12-22] MEDS: PRAVASTATIN 40 MG PO SCH (20:57)
[2018-12-22] MEDS ORDERED: GABAPENTIN 300 MG (NEURONTIN) CAP PO SCH (21:00)
[2018-12-22] MEDS ORDERED: glipiZIDE 5 MG (GLUCOTROL) TAB PO SCH (21:00)
[2018-12-22] MEDS ORDERED: NON-FORMULARY MEDICATION 1 EA EA (Pravastatin Sodium 20 MG) PO SCH (21:00)
[2018-12-22] MEDS ORDERED: TOPIRAMATE 25 MG PO SCH (21:00)
[2018-12-22] MEDS: HYDROcodone/APAP 5 MG/325 MG (LORTAB) TAB PO PRN (21:28)
[2018-12-23] VITALS (7 sets, daily range): BP systolic 95–167; BP diastolic 58–95
[2018-12-23] MEDS: PIPERACILLIN/TAZO 4.5 GM/NS 100 ML IV SCH ×6 (01:22→17:04)
[2018-12-23] MEDS: VANCOMYCIN 1250 MG/NS 250 ML IVPB IV SCH ×2 (05:10)
[2018-12-23] MEDS: LEVOTHYROXINE 150 MCG (LEVOTHROID) TAB PO SCH (06:13)
[2018-12-23] MEDS: metFORMIN 500 MG (GLUCOPHAGE) TAB PO SCH ×2 (06:13→17:04)
[2018-12-23] MEDS: inSUlin ASPART (NovoLOG) 1 UNIT/0.01 ML (CHARGE PER UNIT) SC SCH ×4 (06:13→21:05)
[2018-12-23] MEDS: RT-ALBUTEROL/IPRATROPIUM 3 ML (DUONEB) VIAL INH SCH ×2 (07:56→19:05)
[2018-12-23] MEDS: lisINopril 40 MG (PRINIVIL) TABLET PO SCH (08:52)
[2018-12-23] MEDS: CYANOCOBALAMIN 1,000 MCG (VITAMIN B-12) TABLET PO SCH (08:52)
[2018-12-23] MEDS: PANTOPRAZOLE 20 MG TABLET (PROTONIX) PO SCH (08:52)
[2018-12-23] MEDS: ASPIRIN E.C. 81 MG (ECOTRIN) TAB PO SCH (08:53)
[2018-12-23] MEDS: meTOprolol SUCCINATE 100 MG (TOPROL XL) TAB PO SCH ×2 (08:53→21:10)
[2018-12-23] MEDS: GABAPENTIN 100 MG (NEURONTIN) CAP PO SCH (08:53)
[2018-12-23] MEDS: ENOXAPARIN 60 MG/0.6 ML (LOVENOX) SYR SC SCH ×2 (08:54→21:09)
[2018-12-23] MEDS ORDERED: NON-FORMULARY MEDICATION 1 EA EA (Levothyroxine Sodium 300 MCG) PO SCH (09:00)
[2018-12-23] MEDS ORDERED: BENAZEPRIL HCL PO SCH (09:00)
[2018-12-23] MEDS: toPIRamate 25 MG (TOPAMAX) TAB PO SCH ×2 (09:00→21:10)
[2018-12-23] MEDS ORDERED: NON-FORMULARY MEDICATION 1 EA EA (Metoprolol Succinate 200 MG) PO SCH (09:00)
[2018-12-23] MEDS ORDERED: GLIMEPIRIDE 2 MG (AMARYL) TAB PO SCH (10:00)
[2018-12-23] MEDS ORDERED: PATIENT MAY USE OWN MED,SINGLE MED PO SCH (10:00)
[2018-12-23] MEDS: GLIMEPIRIDE 2 MG (AMARYL) TAB PO SCH ×2 (10:18→21:09)
[2018-12-23] MEDS ORDERED: TROUGH ORDER-PHARMACY XX NR ×2 (11:00→20:00)
--- NOTE | 2018-12-23 11:41 | NUR ---
Vanco trough - Trough = 25.3, HOLD Vancomycin, repeat trough 12/23 @ 1999. IF trough result is less than 20, resume Vancomycin at 1250mg every 12 hours. If trough remains 20 or above, continue to hold Vancomycin
--- NOTE | 2018-12-23 12:03 | Progress Note-Hospitalist ---
Subjective HPI/CC On Admission Date Seen by Provider: Dec 23, 2018 Time Seen by Provider: 09:45 PT ARRIVES VIA EMS FROM HOME PT WEARS HOME O2 AT 3L/NC AND HAS CPAP AT HOME PT CALLED EMS FOR SHORTNESS OF BREATH--O2 SAT WAS 82% ON THEIR ARRIVAL, ON HIS OWN CPAP EMS PLACED PT ON THEIR CPAP AND O2 SATS IMMEDIATELY UP TO 98-99%, BUT PT REFUSED TO KEEP IT ON FOR MORE THAN A FEW MINUTES AND TOOK IT OFF PT HAD TEMP OF 103.3. PT STATES HE WAS AWARE THAT HE HAD FEVER, BUT DOES NOT ANSWER QUESTION OF HOW LONG HE HAS HAD FEVER, OR IF HE TOOK HIS TEMP AT HOME OR IF HE TOOK ANYTHING FOR IT. PT HAS CHRONIC DYSPNEA, AND BECOMES VERY SHORT OF BREATH WITH MINIMAL MOVMENt. this morning patient is feeling better and temperature is down he denies shortness of breath. He has some mild bilateral lower leg discomfort and denies any abdominal pain or any of the symptoms that he had with abdominal panniculitis that he had this last admission secondary to reported Staphylococcus aureus. He denies chest symptoms cough congestion sputum production and denies chest pain other than Reiger's last night he had not been having any previous night sweats chills fever and it been back to baseline level per his report. He also denied dysuria or increased frequency Subjective/Events-last exam patient reports legs are feeling better and he denies night sweats chills or fever. He has noticed a little more erythema in the right lower abdomen but always sleeps on his right side and he denies pain or induration of the area. I'll had written to start glipizide the patient refused the medication yesterday because he stated that he was allergic to it had been switched to Amaryl. Blood sugars have been high in the 300-400 range despite sliding scale insulin Focused Exam Lactate Level 12/22/18 00:05: Lactic Acid Level 2.91*H 12/22/18 02:10: Lactic Acid Level 2.14*H Objective Exam Vital Signs Vital Signs Date Time Temp Pulse Resp B/P (MAP) Pulse Ox O2 Delivery O2 Flow Rate FiO2 12/23/18 08:00 97.4 68 20 167/95 (119) 93 Room Air 12/22/18 12:00 4.00 12/22/18 03:49 36 Capillary Refill : Less Than 3 Seconds General Appearance: Obese (MORBIDLY OBESE), Other (PT VERY DYSPNEIC WITH MINIMAL EXERTION, SUCH CHANGING POSITIONS IN BED, BUT ABLE TO YELL AND TALK NON-STOP. PT EXTREMELY HOSTILE AND VERBALLY ABUSIVE TO ALL STAFF. PT LITERALLY YELLING FOR NURSE EVERY 5 MINUTES TO COME INTO ROOM FOR MULTITUDE OF DEMANDS--CHANGING POSITION IN BED, WATER, ETC--NOTHING THAT HAS TO DO WITH HIS PRESENTING COMPLAINT OF SHORTNESS OF BREATH WHEN HE CALLED EMS. PT VERY UNKEMPT AND MALODOROUS. VERY ARGUMENTATIVE ABOUT EVERY ASPECT OF CARE. MOANS/YELLS/WAILS WITH ANY MOVEMENT) HEENT: Other (POOR DENTITION) Neck: Full Range of Motion, Normal Inspection, Non Tender Respiratory: Other (PT VERY DYSPNEIC WITH MINIMAL EXERTION, SUCH CHANGING POSITION IN BED, BUT LUNGS ARE CLEAR TO AUSCULTATION. ) Cardiovascular: Tachycardia Gastrointestinal: Non Tender Extremity: Other (erythema more violaceous not as bright red there is less induration and no evidence for advancement of erythema of both lower extremiti es. No drainage is noted. The abdomen reveals small amount of erythema but there is no pain to palpation and no induration) Neurologic/Psychiatric: Alert, Oriented x3, consulting solution manager II-XII Norm as Tested Skin: Other (EXTENSIVE CHRONIC VENOUS STASIS CHANGES TO BILATERAL LOWER LEGS, WITH SIGNIFICANT ERYTHEMA TO LOWER LEGS, WITH SOME BLISTER FORMATION AND OOZING OF SEROUS FLUID. FEET ARE PINK, WITH NO OBVIOUS FOOT ULCERATIONS. UNABLE TO DETERMINE DEGREE OF EDEMA DUE TO PT'S BODY HABITUS. ) Results/Procedures Lab Patient resulted labs reviewed. Assessment/Plan Assessment and Plan Assess & Plan/Chief Complaint A/P 1. Fever defervesced and leukocytosis decreasing most likely secondary to cellulitis blood cultures pending no evidence for any other source.patient responding to antibiotics continue. There is no evidence to suggest recurrence of panniculitis. For now continue broad-spectrum antibiotic coverage with vancomycin and cefepime. Anaerobic bacterial etiologies highly unlikely with no evidence for any foot wounds. 2. Type II diabetes mellitus with peripheral neuropathy under suboptimal control will initiate Amaryl 2 mg twice a day and continue sliding scale insulin discussing importance of not overdoing it with carbohydrates continue 1500-calorie ADA diet. 3. Obesity hypoventilation syndrome stable with obstructive sleep apnea. 4. Minimal troponin elevation likely due to so-called type II IL from the stress of cellulitis infection and high fever, no evidence for acute coronary syndrome no ischemic EKG changes cont inue conservative medical management Clinical Quality Measures DVT/VTE Risk/Contraindication: Risk Factor Score Per Nursin RFS Level Per Nursing on Admit: 4+=Very High LEONARD QUESADA MD Dec 23, 2018 12:03
--- NOTE | 2018-12-23 20:34 | NUR ---
Vanco trough - Trough = 20.4, HOLD Vancomycin PER ORDER.
[2018-12-23] MEDS ORDERED: VANCOMYCIN 1250 MG/NS 250 ML IVPB IV SCH ×2 (21:00)
[2018-12-23] MEDS: PRAVASTATIN 40 MG PO SCH (21:09)
[2018-12-23] MEDS: GABAPENTIN 300 MG (NEURONTIN) CAP PO SCH (21:10)
[2018-12-23] MEDS: HYDROcodone/APAP 5 MG/325 MG (LORTAB) TAB PO PRN (21:10)
[2018-12-24] MEDS: PIPERACILLIN/TAZO 4.5 GM/NS 100 ML IV SCH ×4 (02:10→08:54)
[2018-12-24 04:22] VITALS: BP 109/74
[2018-12-24 05:39] LABS: BASOPHILS % (AUTO) 0 % (0-10); EOSINOPHILS # (AUTO) 0.1 10^3/uL (0.0-0.3); EOSINOPHILS % (AUTO) 1 % (0-10); HEMATOCRIT 39 % (40-54); HEMOGLOBIN 12.1 G/DL (13.3-17.7); LYMPHOCYTES # (AUTO) 2.7 X 10^3 (1.0-4.0); LYMPHOCYTES % (AUTO) 26 % (12-44); MEAN CORPUSCULAR HEMOGLOBIN 28 PG (25-34); MEAN CORPUSCULAR HGB CONC 31 G/DL (32-36); MEAN CORPUSCULAR VOLUME 90 FL (80-99); MEAN PLATELET VOLUME 10.1 FL (7.4-10.4); MONOCYTES # (AUTO) 0.8 X 10^3 (0.0-1.0); MONOCYTES % (AUTO) 8 % (0-12); NEUTROPHILS # (AUTO) 6.8 X 10^3 (1.8-7.8); NEUTROPHILS % (AUTO) 65 % (42-75); PLATELET COUNT 227 10^3/uL (130-400); RED CELL DISTRIBUTION WIDTH 15.4 % (10.0-14.5); WHITE BLOOD COUNT 10.5 10^3/uL (4.3-11.0)
[2018-12-24] MEDS: inSUlin ASPART (NovoLOG) 1 UNIT/0.01 ML (CHARGE PER UNIT) SC SCH ×2 (06:08→11:22)
[2018-12-24] MEDS: metFORMIN 500 MG (GLUCOPHAGE) TAB PO SCH (06:09)
[2018-12-24] MEDS: LEVOTHYROXINE 150 MCG (LEVOTHROID) TAB PO SCH (06:09)
[2018-12-24 08:00] VITALS: BP 103/55
[2018-12-24 08:43] VITALS: BP 109/74
[2018-12-24] MEDS: RT-ALBUTEROL/IPRATROPIUM 3 ML (DUONEB) VIAL INH SCH (08:43)
[2018-12-24] MEDS: GABAPENTIN 100 MG (NEURONTIN) CAP PO SCH (08:50)
[2018-12-24] MEDS: CYANOCOBALAMIN 1,000 MCG (VITAMIN B-12) TABLET PO SCH (08:50)
[2018-12-24] MEDS: GLIMEPIRIDE 2 MG (AMARYL) TAB PO SCH (08:50)
[2018-12-24] MEDS: meTOprolol SUCCINATE 100 MG (TOPROL XL) TAB PO SCH (08:51)
[2018-12-24] MEDS: PANTOPRAZOLE 20 MG TABLET (PROTONIX) PO SCH (08:51)
[2018-12-24] MEDS: ENOXAPARIN 60 MG/0.6 ML (LOVENOX) SYR SC SCH (08:52)
[2018-12-24] MEDS: toPIRamate 25 MG (TOPAMAX) TAB PO SCH (08:52)
[2018-12-24] MEDS: ASPIRIN E.C. 81 MG (ECOTRIN) TAB PO SCH (08:52)
[2018-12-24] MEDS: lisINopril 40 MG (PRINIVIL) TABLET PO SCH (08:52)
--- NOTE | 2018-12-24 11:03 | NUR ---
PTD VANCOMYCIN LABS: SCR 1.3 (1.19) VANCOMYCIN LEVELS 12/23 25.3 12/23 REPEAT 20.4 (9 HOURS APART) PHARMACOKINETIC CALCULATIONS: Kd: 0.0239 T1/2: 41 HOURS PLAN: CHANGE VANCOMYCIN TO Q48 HOURS.
[2018-12-24] MEDS ORDERED: SULF1TAB35 PO (12:34)
--- NOTE | 2018-12-24 12:37 | Discharge Inst-Simple/Standard ---
Discharge Inst-Standard Discharge Medications New, Converted or Re-Newed RX: Transmitted to Pharmacy Patient Instructions/Follow Up Plan of Care/Instructions/FU: Please continue to take your medications as written. Please follow up with your PCP as scheduled tomorrow. Please take your probiotic or eat probiotic yogurt to help prevent diarrhea. Activity as Tolerated: Yes Discharge Diet: Low Sodium Diet, ADA Diet Return to The Hospital For: Fever, worsening leg swelling or redness, if you feel you are getting worse. DEBI FLORES MD Dec 24, 2018 12:37
--- NOTE | 2018-12-24 14:37 | Discharge Summary-Hospitalist ---
Diagnosis/Chief Complaint Date of Admission Dec 22, 2018 at 01:35 Date of Discharge Discharge Date: Dec 24, 2018 Admission Diagnosis A/P 1. Fever and leukocytosis most likely secondary to cellulitis blood cultures pending no evidence for any other source. There is no evidence to suggest recurrence of panniculitis. For now continue broad-spectrum antibiotic coverage with vancomycin and cefepime. Anaerobic bacterial etiologies highly unlikely with no evidence for any foot wounds. 2. Type II diabetes mellitus with peripheral neuropathy. 3. Obesity hypoventilation syndrome stable with obstructive sleep apnea. 4. Minimal troponin elevation likely due to so-called type II CA from the stress of cellulitis infection and high fever, no evidence for acute coronary syndrome no ischemic EKG changes continue conservative medical management. Discharge Summary Discharge Physical Exam Allergies: Coded Allergies: meperidine (Verified Allergy, Unknown, 02/12/17) Uncoded Allergies: iv contrast (Adverse Reaction, Intermediate, 07/10/17) Vitals & I&Os Vital Signs Date Time Temp Pulse Resp B/P (MAP) Pulse Ox O2 Delivery O2 Flow Rate FiO2 12/24/18 08:43 68 93 21 12/24/18 08:00 97.0 18 103/55 (71) Room Air 12/22/18 12:00 4.00 General Appearance: No Apparent Distress, Chronically ill, Obese Extremity: Other (venous stasis dermatitis noted bilaterally with chronic lymphedema) Neurologic/Psychiatric: Alert, Oriented x3 Hospital Course Pt was admitted for sepsis from lower extremity cellulitis. He responded well to IV antibiotics and blood cultures were negative. He was requesting discharge home on day of discharge. He was sent to complete oral antibiotics at home and advised to take a probiotic as well. He has an appointment already scheduled with his PCP at the [place] in [facility] tomorrow and he was advised to keep that appt. Labs (last 24 hrs) Laboratory Tests 12/23/18 16:00: Glucometer 193H 12/23/18 19:55: Vancomycin Level Trough 20.4H 12/23/18 20:57: Glucometer 176H 12/24/18 05:25: White Blood Count 10.5, Red Blood Count 4.38, Hemoglobin 12.1L, Hematocrit 39L, Mean Corpuscular Volume 90, Mean Corpuscular Hemoglobin 28, Mean Corpuscular Hemoglobin Concent 31L, Red Cell Distribution Width 15.4H, Platelet Count 227, Mean Platelet Volume 10.1, Neutrophils (%) (Auto) 65, Lymphocytes (%) (Auto) 26, Monocytes (%) (Auto) 8, Eosinophils (%) (Auto) 1, Basophils (%) (Auto) 0, Neutrophils # (Auto) 6.8, Lymphocytes # (Auto) 2.7, Monocytes # (Auto) 0.8, Eosinophils # (Auto) 0.1, Basophils # (Auto) 0.0 12/24/18 05:59: Glucometer 156H 12/24/18 10:44: Glucometer 152H Microbiology 12/22/18 Blood Culture - Preliminary, Resulted No growth 12/21/18 Urine Culture - Final, Complete NO GROWTH Patient resulted labs reviewed. Pending Labs Laboratory Tests 12/24/18 10:44: Glucometer 152 Discussion & Recommendations Discharge Planning: >30 minutes discharge planning Discharge Home Medications: Active Scripts Active Bactrim Ds Tablet (Sulfamethoxazole/Trimethoprim) 1 Each Tablet 1 Each PO BID Reported Metformin HCl 500 Mg Tablet 1,000 Mg PO BID Lasix (Furosemide) 40 Mg Tablet 2 Tab PO DAILY Glipizide 10 Mg Tablet 10 Mg PO BID Potassium Chloride 20 Meq Tablet.er 20 Meq PO DAILY Benazepril HCl 20 Mg Tablet 2 Tab PO DAILY Metoprolol Succinate 200 Mg Tab.er.24h 200 Mg PO DAILY Topiramate 50 Mg Tablet 25 Mg PO BID Gabapentin 100 Mg Capsule 300 Mg PO HS Levothyroxine Sodium 300 Mcg Tablet 300 Mcg PO DAILY Hydrocodone/Acetaminophen 5/325mg Tablet (Acetaminophen/Hydrocodone Bitart) 1 Tab Tab 1 Tab PO BID PRN 7 Days Gabapentin 100 Mg Capsule 100 Mg PO DAILY Aspirin EC (Aspirin) 81 Mg Tablet.dr 81 Mg PO DAILY Metoprolol Succinate 100 Mg Tab.er.24h 100 Mg PO HS Omeprazole 20 Mg Capsule.dr 20 Mg PO DAILY B-12 (Cyanocobalamin (Vitamin B-12)) 1,000 Mcg Tablet 1,000 Mcg PO DAILY Pravastatin Sodium 40 Mg Tablet 20 Mg PO HS Instructions to patient/family Please see electronic discharge instructions given to patient. Clinical Quality Measures DVT/VTE Risk/Contraindication: Risk Factor Score Per Nursin RFS Level Per Nursing on Admit: 4+=Very High DEBI FLORES MD Dec 24, 2018 14:37
[2018-12-25] MEDS ORDERED: VANCOMYCIN 1250 MG/NS 250 ML IVPB IV SCH ×2 (10:00)
== END 2018-12-24 14:50 | disposition home or self-care (01) | DRG 871 ==
LOC: EDUNIT# 23:19 → ER 23:21 → 4TH 12-22 01:35
PROVIDERS: ADMIT Internal Medicine; ATTEND Family Medicine
DX: A41.9 Sepsis, unspecified organism (principal); L03.115 Cellulitis of right lower limb; L03.116 Cellulitis of left lower limb; I21.A1 Myocardial infarction type 2; E66.2 Morbid (severe) obesity with alveolar hypoventilation; Z68.42 Body mass index [BMI] 45.0-49.9, adult; I42.9 Cardiomyopathy, unspecified; I11.0 Hypertensive heart disease with heart failure; I50.9 Heart failure, unspecified; E11.42 Type 2 diabetes mellitus with diabetic polyneuropathy; J44.9 Chronic obstructive pulmonary disease, unspecified; I25.10 Atherosclerotic heart disease of native coronary artery without angina pectoris; I25.2 Old myocardial infarction; I89.0 Lymphedema, not elsewhere classified; I87.2 Venous insufficiency (chronic) (peripheral); E78.00 Pure hypercholesterolemia, unspecified; E03.9 Hypothyroidism, unspecified; K21.9 Gastro-esophageal reflux disease without esophagitis; M19.91 Primary osteoarthritis, unspecified site; M54.9 Dorsalgia, unspecified; E83.42 Hypomagnesemia; Z79.84 Long term (current) use of oral hypoglycemic drugs; Z87.891 Personal history of nicotine dependence; Z86.73 Personal history of transient ischemic attack (TIA), and cerebral infarction without residual deficits
CPT/HCPCS: 36415; 36600; 71045; 80053; 80202; 81000; 82805; 82962; 83605; 83735; 83880; 84484; 85007; 85025; 85027; 87088; 93005; 93041; 94640

== ENCOUNTER → 2019-03-29 | Outpatient (CLI) | payer MEDICARE, OTHER ==
[~2019-03-29] MED LIST changes: +BENA20TA7 PO; -OMEP20CA12 PO; +OMEP20CA13 PO; +SULF1TAB35 PO
[2019-03-29 12:26] LABS: BASOPHILS % (AUTO) 0 % (0-10); EOSINOPHILS # (AUTO) 0.2 10^3/uL (0.0-0.3); EOSINOPHILS % (AUTO) 3 % (0-10); HEMATOCRIT 42 % (40-54); HEMOGLOBIN 13.2 G/DL (13.3-17.7); LYMPHOCYTES # (AUTO) 2.2 X 10^3 (1.0-4.0); LYMPHOCYTES % (AUTO) 30 % (12-44); MEAN CORPUSCULAR HEMOGLOBIN 27 PG (25-34); MEAN CORPUSCULAR HGB CONC 31 G/DL (32-36); MEAN CORPUSCULAR VOLUME 87 FL (80-99); MEAN PLATELET VOLUME 9.9 FL (7.4-10.4); MONOCYTES # (AUTO) 0.8 X 10^3 (0.0-1.0); MONOCYTES % (AUTO) 12 % (0-12); NEUTROPHILS % (AUTO) 55 % (42-75); PLATELET COUNT 198 10^3/uL (130-400); RED CELL DISTRIBUTION WIDTH 15.3 % (10.0-14.5); WHITE BLOOD COUNT 7.2 10^3/uL (4.3-11.0)
[2019-03-29 12:52] LABS: ALBUMIN 3.7 GM/DL (3.2-4.5); BILIRUBIN,TOTAL 0.6 MG/DL (0.1-1.0); CALCIUM 9.3 MG/DL (8.5-10.1); CREATININE SERUM 1.35 MG/DL (0.60-1.30); MAGNESIUM 1.6 MG/DL (1.6-2.4); POTASSIUM 5.4 MMOL/L (3.6-5.0); TOTAL PROTEIN 7.8 GM/DL (6.4-8.2)
[2019-03-29 13:14] LABS: ERYTHROCYTE SEDIMENTATION RATE 38 MM/HR (0-30)
== END ==
LOC: CARD 11:55
PROVIDERS: ATTEND Internal Medicine Cardiovascular Disease
DX: I07.1 Rheumatic tricuspid insufficiency (principal); I11.0 Hypertensive heart disease with heart failure; G47.33 Obstructive sleep apnea (adult) (pediatric); E66.01 Morbid (severe) obesity due to excess calories; I50.22 Chronic systolic (congestive) heart failure
CPT/HCPCS: 36415; 80053; 83735; 85025; 85652; 93306

== ENCOUNTER → 2019-04-11 | Outpatient (CLI) | payer MEDICARE ==
[2019-04-11 12:20] LABS: CALCIUM 9.3 MG/DL (8.5-10.1); CREATININE SERUM 1.51 MG/DL (0.60-1.30); POTASSIUM 4.9 MMOL/L (3.6-5.0)
== END ==
LOC: LAB 11:39
PROVIDERS: ATTEND Internal Medicine Cardiovascular Disease
DX: I11.0 Hypertensive heart disease with heart failure (principal); I50.22 Chronic systolic (congestive) heart failure; E66.01 Morbid (severe) obesity due to excess calories; I42.0 Dilated cardiomyopathy; G47.33 Obstructive sleep apnea (adult) (pediatric); M79.89 Other specified soft tissue disorders
CPT/HCPCS: 36415; 80048

== ENCOUNTER 2019-06-04 10:13 | Emergency (ER) | payer MEDICARE, OTHER ==
[~2019-06-04] VITALS: Ht 187 cm; Wt 195.0 kg
[2019-06-04] MEDS ORDERED: FAMOTIDINE 20MG/2ML IV (PEPCID) IVP ONE ×2 (10:45→12:30)
[2019-06-04] MEDS ORDERED: diphenhydrAMINE 50 MG/ML INJ (BENADRYL) IVP ONE ×2 (10:45→12:30)
[2019-06-04] MEDS ORDERED: methylPREDNISolone 125 MG (Solu-MEDROL) VIAL IVP ONE (10:45)
[2019-06-04 10:47] LABS: BASOPHILS % (AUTO) 0 % (0-10); EOSINOPHILS # (AUTO) 0.2 10^3/uL (0.0-0.3); EOSINOPHILS % (AUTO) 3 % (0-10); HEMATOCRIT 41 % (40-54); HEMOGLOBIN 12.4 G/DL (13.3-17.7); LYMPHOCYTES # (AUTO) 1.6 X 10^3 (1.0-4.0); LYMPHOCYTES % (AUTO) 20 % (12-44); MEAN CORPUSCULAR HEMOGLOBIN 27 PG (25-34); MEAN CORPUSCULAR HGB CONC 31 G/DL (32-36); MEAN CORPUSCULAR VOLUME 88 FL (80-99); MEAN PLATELET VOLUME 10.3 FL (7.4-10.4); MONOCYTES # (AUTO) 0.7 X 10^3 (0.0-1.0); MONOCYTES % (AUTO) 9 % (0-12); NEUTROPHILS # (AUTO) 5.2 X 10^3 (1.8-7.8); NEUTROPHILS % (AUTO) 67 % (42-75); PLATELET COUNT 248 10^3/uL (130-400); RED CELL DISTRIBUTION WIDTH 14.7 % (10.0-14.5); WHITE BLOOD COUNT 7.7 10^3/uL (4.3-11.0)
[2019-06-04 10:59] LABS: ALBUMIN 3.6 GM/DL (3.2-4.5); BILIRUBIN,TOTAL 0.7 MG/DL (0.1-1.0); CALCIUM 9.2 MG/DL (8.5-10.1); CREATININE SERUM 1.42 MG/DL (0.60-1.30); POTASSIUM 4.5 MMOL/L (3.6-5.0); TOTAL PROTEIN 7.6 GM/DL (6.4-8.2)
[2019-06-04 12:05] LABS: SMEAR SCAN COMMENT YES
[2019-06-04 12:44] LABS: BILIRUBIN,URINE NEGATIVE (NEGATIVE); CLARITY,URINE CLEAR; COLOR,URINE YELLOW; GLUCOSE, URINE (UA) NEGATIVE (NEGATIVE); KETONES,URINE NEGATIVE (NEGATIVE); LEUKOCYTE ESTERASE ,URINE NEGATIVE (NEGATIVE); NITRITE,URINE NEGATIVE (NEGATIVE); PH,URINE 5.5 (5-9); PROTEIN,URINE TRACE (NEGATIVE)
[2019-06-04 12:53] LABS: BACTERIA,URINE NEGATIVE /HPF; SQUAMOUS EPITHELIAL CELL,UR RARE /HPF
[2019-06-04] MEDS ORDERED: FAMO40TA72 PO (13:01)
[2019-06-04] MEDS ORDERED: SULF1TAB35 PO (13:01)
[2019-06-04] MEDS ORDERED: SILV20CR14 TP (13:01)
--- NOTE | 2019-06-04 13:02 | ED General ---
General Chief Complaint: Respiratory Problems Stated Complaint: HIVES IN THROAT/SOA Nursing Triage Note: PT CO OF SOA, PT TO ROOM 8 PER W/C CO OF SOA AND HIVES IN MOUTH, NO HIVES NOTED ANYWHERE ON BODY AT THIS X. PT STATES WAS STARTED ON LANTUS RECENTLY Nursing Sepsis Screen: No Definite Risk Source of Information: Patient History of Present Illness Date Seen by Provider: Jun 04, 2019 Time Seen by Provider: 10:30 Initial Comments PT ARRIVES VIA POV FROM HOME, IN [employer] PT STATES HE HAS "HIVES IN HIS MOUTH AND THROAT" FOR THE LAST FEW DAYS STATES HE FEELS LIKE HIS THROAT IS ITCHY, BUT NOT REALLY SWOLLEN. NO DIFFICULTY SWALLOWING STATES HE FEELS SHORT OF BREATH--IS A CHRONIC PROBLEM BUT HAS BEEN WORSE THE LAST FEW DAYS STATES HE HAS BEEN HAVING HIVES ALL OVER HIS BODY, ALL OVER HIS FACE AND HEAD FOR THE LAST FEW DAYS STATES LAST NIGHT HIS UPPER LIP WAS "SWOLLEN 3 TIMES IT'S NORMAL SIZE" BUT IS NORMAL TODAY STATES SYMPTOMS COME AND GO HAS NOT TAKEN ANYTHING FOR THEM NO HISTORY OF SIMILAR STATES HE WAS RECENTLY STARTED ON INSULIN IN THE LAST MONTH--STARTED ON LANTUS AT 25 UNITS AT , THEN INCREASED TO 50 UNITS A COUPLE OF WEEKS AGO. STATES HE TAKES HIS SHOT AROUND 2100 EVERY NIGHT, AND HIVES AND ALL OTHER SYMPTOMS START APPROXIMATELY AN HOUR LATER, THEN EVENTUALLY GO AWAY STATES TODAY IS WHEN HE STARTED FEELING THEM MORE IN HIS THROAT, AND FEELING A LITTLE MORE SHORT OF BREATH STATES HE GOES TO [facility] [place] STATES HE CALLS [facility] AT [facility] EVERY COUPLE OF WEEKS REGARDING BLOOD SUGARS STATES THAT HIS INSULIN IS BEING SWITCHED TO A "PEN" BUT DOES NOT KNOW WHAT KIND OF INSULIN--STATES THIS WAS DECIDED LAST WEEK DUE TO HIS BLOOD SUGARS BEING IN THE 300'S. STATES HE IS SUPPOSED TO BE GETTING HIS NEW PRESCRIPTION IN THE MAIL SOMETIME THIS WEEK HE HAS NOT ATTEMPTED TO CONTACT ANYONE ABOUT THESE CURRENT SYMPTOMS NO CHEST PAIN NO COUGH NO WHEEZING NO DIZZINESS NO PALPITATIONS NO CHANGE IN CHRONIC LEG SWELLING OR REDNESS HAS CHRONIC WEEPING AREAS STATES HE WAS REFERRED TO WOUND CARE HERE, BUT STATES "THEY COULDN'T TAKE CARE OF ME BECAUSE THERE AREN'T ANY ULCERS OR WOUNDS" PT STATES HE WAS ALSO REFERRED TO A PACKAGE DYE STAND LOADER AT [facility], BUT NO TREATMENT WAS DONE AND HE NEVER WENT BACK STATES HE WOULD LIKE A PRESCRIPTION FOR AN ANTIBIOTIC AND SILVADENE CREAM FOR THIS CHRONIC PROBLEM PT HAS NOT ATTEMPTED TO ACTUALLY SEE [facility]. PCP[facility] [place] [facility] [employer]: [facility]: [place] Allergies and Home Medications Allergies Coded Allergies: meperidine (Verified Allergy, Unknown, 02/12/17) Uncoded Allergies: iv contrast (Adverse Reaction, Intermediate, 07/10/17) Home Medications Aspirin 81 Mg Tablet.dr, 81 MG PO DAILY, (Reported) Benazepril HCl 20 Mg Tablet, 2 TAB PO DAILY, (Reported) Cyanocobalamin (Vitamin B-12) 1,000 Mcg Tablet, 1,000 MCG PO DAILY, (Reported) Famotidine 40 Mg Tablet, 40 MG PO DAILY Prescribed by: BREANN WING on 06/04/19 1301 Furosemide 40 Mg Tablet, 2 TAB PO DAILY, (Reported) Gabapentin 100 Mg Capsule, 100 MG PO DAILY, (Reported) Gabapentin 100 Mg Capsule, 300 MG PO HS, (Reported) Glipizide 10 Mg Tablet, 10 MG PO BID, (Reported) Hydrocodone Bit/Acetaminophen 1 Tab Tab, 1 TAB PO BID PRN for PAIN-MODERATE, (Reported) Levothyroxine Sodium 300 Mcg Tablet, 300 MCG PO DAILY, (Reported) Metformin HCl 500 Mg Tablet, 1,000 MG PO BID, (Reported) Metoprolol Succinate 100 Mg Tab.er.24h, 100 MG PO HS, (Reported) Metoprolol Succinate 200 Mg Tab.er.24h, 200 MG PO DAILY, (Reported) Omeprazole 20 Mg Capsule.dr, 20 MG PO DAILY, (Reported) Potassium Chloride 20 Meq Tablet.er, 20 MEQ PO DAILY, (Reported) Pravastatin Sodium 40 Mg Tablet, 20 MG PO HS, (Reported) Silver Sulfadiazine 20 Gm Cream..g., 0 TP BID Prescribed by: BREANN WING on 06/04/19 1301 Sulfamethoxazole/Trimethoprim 1 Each Tablet, 1 EACH PO BID Prescribed by: DEBI FLORES on 12/24/18 1234 Sulfamethoxazole/Trimethoprim 1 Each Tablet, 1 EACH PO BID Prescribed by: BREANN WING on 06/04/19 1301 Topiramate 50 Mg Tablet, 25 MG PO BID, (Reported) Patient Home Medication List Home Medication List Reviewed: Yes Review of Systems Review of Systems Constitutional: no symptoms reported; No fever EENTM: see HPI Respiratory: see HPI; No cough; dyspnea on exertion, short of breath; No wheezing Cardiovascular: no symptoms reported; No chest pain Gastrointestinal: no symptoms reported Genitourinary: no symptoms reported Musculoskeletal: see HPI Skin: see HPI Psychiatric/Neurological: No Symptoms Reported Hematologic/Lymphatic: No Symptoms Reported Immunological/Allergic: see HPI Past Nlpaain-Ocmjvx-Phahnb Hx Patient Social History Alcohol Use: Denies Use Recreational Drug Use: No Smoking Status: Former Smoker (1 PPD, QUIT IN . ) Type Used: Cigarettes Former Smoker, Quit: Feb 13, 1987 2nd Hand Smoke Exposure: No Recent Foreign Travel: No Contact w/Someone Who Travel: No Recent Infectious Disease Expo: No Recent Hopitalizations: No Physical Abuse: No Sexual Abuse: No Immunizations Up To Date Tetanus Booster (TDap): Unknown Date of Pneumonia Vaccine: Mar 29, 2017 Date of Influenza Vaccine: Mar 26, 2019 Seasonal Allergies Seasonal Allergies: No Past Medical History Surgeries: Yes (KNEE SURGERY, LEFT SHOULDER SURGERY, HERNIA REPAIR, ) Abdominal, Gallbladder, Orthopedic Respiratory: Yes (OBESITY-HYPOVENTILATION; USED TO BE ON O2 CONTINOUSLY, BUT NOW ONLY USES IT AT NIGHT VIA CPAP AT 2 1/2 LITERS) Sleep Apnea, COPD Currently Using CPAP: Yes Currently Using BIPAP: No Cardiac: Yes (CHF) Cardiomyopathy, Chronic Edema/Swelling, Coronary Artery Disease, Heart Attack, High Cholesterol, Hypertension Neurological: Yes (TIA'S X 4; STROKE X 1) Neuropathy, Stroke, TIA Sexually Transmitted Disease: No HIV/AIDS: No Genitourinary: Yes Kidney Stones, Renal Failure Gastrointestinal: Yes Gastroesophageal Reflux Musculoskeletal: Yes (HIP FX; 2 TORN ROTATOR CUFFS; RIGHT HIP AND LOWER BACK PAIN ) Degenerate Disk Disease, Arthritis, Chronic Back Pain, Fractures Endocrine: Yes (MORBID OBESITY--WEIGHT 460#, PER PT ON 06/04/19) Hypothyroidsim, Diabetes, Non-Insulin dep HEENT: Yes Cataract Cancer: No Psychosocial: No Integumentary: Yes (LEG CELLULITIS; ABDOMINAL WALL CELLULITIS/PANNICULITIS) Blood Disorders: No Adverse Reaction/Blood Tranf: No Family Medical History Cardiovascular disease 19 FATHER 19 MOTHER Diabetes mellitus 19 FATHER 19 MOTHER Hypercholesterolemia 19 FATHER 19 MOTHER Hypertension 19 FATHER 19 MOTHER Myocardial infarction 19 FATHER 19 MOTHER Heart Disease, Diabetes, Hypertension Physical Exam Vital Signs Vital Signs - First Documented 06/04/19 06/04/19 10:14 13:13 Temp 36.6 Pulse 83 Resp 18 B/P (MAP) 139/76 (97) Pulse Ox 96 O2 Delivery Room Air Capillary Refill : Less Than 3 Seconds Height, Weight, BMI Height: 6'2.00" Weight: 371lbs. 1.0oz. 168.632992fd; 55.00 BMI Method:Stated General Appearance: No Apparent Distress, Obese (MORBIDLY OBESE), Other (UNKEMPT) HEENT: PERRL/EOMI, Normal ENT Inspection, Pharynx Normal, Other (DENTURES IN PLACE. NO ORAL LESIONS, NO SWELLING TO LIPS, TONGUE, UVULA OR SOFT PALATE. NO PROBLEMS SWALLOWING. ) Neck: Normal Inspection Respiratory: Normal Breath Sounds, No Accessory Muscle Use, No Respiratory Distress Cardiovascular: Regular Rate, Rhythm Gastrointestinal: Soft Extremity: Other (CHRONIC VENOUS STASIS CHANGES TO BILATERAL LOWER LEGS, WITH ERYTHEMA--NORMAL FOR PT. HAS SOME AREAS OF OOZING, BUT NO SIGNIFICANT ULCERATIONS. UNABLE TO DETERMINE DEGREE OF EDEMA DUE TO BODY HABITUS. ) Neurologic/Psychiatric: Alert, Oriented x3, No Motor/Sensory Deficits (HX OF PERIPHERAL NEUROPATHY), Normal Mood/Affect Skin: Normal Color, Warm/Dry, Other ( CHRONIC CHANGES OF SKIN OF LOWER LEGS. NO HIVES OR RASH NOTED ON BODY. ) Progress/Results/Core Measures Suspected Sepsis Recent Fever Within 48 Hours: No Infection Criteria Present: None New/Unexplained Altered Menta: No Sepsis Screen: No Definite Risk SIRS Temperature: Pulse: 83 Respiratory Rate: 18 Laboratory Tests 06/04/19 10:27: White Blood Count 7.7 Blood Pressure 139 /76 Mean: 97 Laboratory Tests 06/04/19 10:27: Creatinine 1.42H, Platelet Count 248, Total Bilirubin 0.7 Results/Orders Lab Results Laboratory Tests Test 06/04/19 10:27 06/04/19 12:36 Range/Units White Blood Count 7.7 4.3-11.0 10^3/uL Red Blood Count 4.58 4.35-5.85 10^6/uL Hemoglobin 12.4 L 13.3-17.7 G/DL Hematocrit 41 40-54 % Mean Corpuscular Volume 88 80-99 FL Mean Corpuscular Hemoglobin 27 25-34 PG Mean Corpuscular Hemoglobin Concent 31 L 32-36 G/DL Red Cell Distribution Width 14.7 H 10.0-14.5 % Platelet Count 248 130-400 10^3/uL Mean Platelet Volume 10.3 7.4-10.4 FL Neutrophils (%) (Auto) 67 42-75 % Lymphocytes (%) (Auto) 20 12-44 % Monocytes (%) (Auto) 9 0-12 % Eosinophils (%) (Auto) 3 0-10 % Basophils (%) (Auto) 0 0-10 % Neutrophils # (Auto) 5.2 1.8-7.8 X 10^3 Lymphocytes # (Auto) 1.6 1.0-4.0 X 10^3 Monocytes # (Auto) 0.7 0.0-1.0 X 10^3 Eosinophils # (Auto) 0.2 0.0-0.3 10^3/uL Basophils # (Auto) 0.0 0.0-0.1 10^3/uL Sodium Level 136 135-145 MMOL/L Potassium Level 4.5 3.6-5.0 MMOL/L Chloride Level 98 98-107 MMOL/L Carbon Dioxide Level 27 21-32 MMOL/L Anion Gap 11 5-14 MMOL/L Blood Urea Nitrogen 32 H 7-18 MG/DL Creatinine 1.42 H 0.60-1.30 MG/DL Estimat Glomerular Filtration Rate 50 BUN/Creatinine Ratio 23 Glucose Level 166 H 70-105 MG/DL Calcium Level 9.2 8.5-10.1 MG/DL Corrected Calcium 9.5 8.5-10.1 MG/DL Total Bilirubin 0.7 0.1-1.0 MG/DL Aspartate Amino Transf (AST/SGOT) 29 5-34 U/L Alanine Aminotransferase (ALT/SGPT) 19 0-55 U/L Alkaline Phosphatase 190 H 40-136 U/L Total Protein 7.6 6.4-8.2 GM/DL Albumin 3.6 3.2-4.5 GM/DL Smear Scan YES Urine Color YELLOW Urine Clarity CLEAR Urine pH 5.5 5-9 Urine Specific [place] 1.025 H 1.016-1.022 Urine Protein TRACE NEGATIVE Urine Glucose (UA) NEGATIVE NEGATIVE Urine Ketones NEGATIVE NEGATIVE Urine Nitrite NEGATIVE NEGATIVE Urine Bilirubin NEGATIVE NEGATIVE Urine Urobilinogen 0.2 < = 1.0 MG/DL Urine Leukocyte Esterase NEGATIVE NEGATIVE Urine RBC (Auto) 1+ H NEGATIVE Urine RBC 2-5 H /HPF Urine WBC NONE /HPF Urine Squamous Epithelial Cells RARE /HPF Urine Crystals NONE /LPF Urine Bacteria NEGATIVE /HPF Urine Casts NONE /LPF Urine Mucus NEGATIVE /LPF Urine Culture Indicated NO My Orders Orders - BREANN WING DO Ed Iv/Invasive Line Start (06/04/19 10:41) Monitor-Rhythm Ecg Trace Only (06/04/19 10:41) Cbc With Automated Diff (06/04/19 10:41) Comprehensive Metabolic Panel (06/04/19 10:41) Ua Culture If Indicated (06/04/19 10:41) Diphenhydramine Injection (Benadryl Inje (06/04/19 10:45) Methylprednisolone Sod Succ (Solu-Medrol (06/04/19 10:45) Famotidine Injection (Pepcid Injection) (06/04/19 10:45) Diphenhydramine Injection (Benadryl Inje (06/04/19 12:30) Famotidine Injection (Pepcid Injection) (06/04/19 12:30) Medications Given in ED Vital Signs/I&O Capillary Refill : Less Than 3 Seconds Blood Pressure Mean: 97 POS Progress Note : Progress Note GIVEN BENADRYL, PEPCID, SOLU-MEDROL WITH RESOLUTION OF SYMPTOMS O2 SATS REMAINED IN UPPER 90'S PT ABLE TO SWALLOW LIQUIDS WITHOUT DIFFICULTY Departure Impression Primary Impression: ADVERSE MEDICATION REACTION--SUSPECT TO LANTUS Additional Impressions: IDDM (insulin dependent diabetes mellitus) CHRONIC LEG CELLULITIS AND ULCERS Disposition: 01 HOME, SELF-CARE Condition: Improved Departure-Patient Inst. Referrals: NO,LOCAL PHYSICIAN (PCP) Primary Care Physician CARON MARTÍNEZ (Family) Primary Care Physician Patient Instructions: Adverse Drug Reactions, Adult (DC), Blood Glucose Monitoring, Cellulitis (Skin Infection), Adult (DC), Diabetes and Infections Add. Discharge Instructions: STOP LANTUS CHECK YOUR BLOOD SUGARS 4 TIMES A DAY START NEW INSULIN SOON IT ARRIVES IN THE MAIL CLEAN LEGS 2-3 TIMES A DAY WITH ANTIBACTERIAL SOAP AND WATER FOLLOW UP WITH WOUND CARE, YOUR PRIMARY CARE AT [facility], AND YOUR DOLL WIG MAKER THIS WEEK FOR FURTHER CARE TAKE BENADRYL 50 MG EVERY 4 HOURS NEEDED FOR HIVES All discharge instructions reviewed with patient and/or family. Voiced understanding. Scripts Famotidine (Pepcid) 40 Mg Tablet 40 MG PO DAILY, #10 TAB Prov: BREANN WING DO 06/04/19 Sulfamethoxazole/Trimethoprim (Bactrim Ds Tablet) 1 Each Tablet 1 EACH PO BID, #20 TAB Prov: BREANN WING DO 06/04/19 Silver Sulfadiazine (Silvadene) 20 Gm Cream..g. 0 TP BID, #1 TUBE Prov: BREANN WING DO 06/04/19 BREANN WING DO Jun 04, 2019 13:02 POS
[2019-06-04 13:13] VITALS: BP 124/74
== END 2019-06-04 13:13 | disposition home or self-care (01) ==
LOC: EDUNIT# 10:13 → ER 10:15
DX: E11.40 Type 2 diabetes mellitus with diabetic neuropathy, unspecified (principal); T50.905A Adverse effect of unspecified drugs, medicaments and biological substances, initial encounter; L03.115 Cellulitis of right lower limb; L03.116 Cellulitis of left lower limb; J44.9 Chronic obstructive pulmonary disease, unspecified; I11.0 Hypertensive heart disease with heart failure; I50.9 Heart failure, unspecified; I25.2 Old myocardial infarction; I25.10 Atherosclerotic heart disease of native coronary artery without angina pectoris; E78.00 Pure hypercholesterolemia, unspecified; K21.9 Gastro-esophageal reflux disease without esophagitis; E03.9 Hypothyroidism, unspecified; E66.01 Morbid (severe) obesity due to excess calories; G47.30 Sleep apnea, unspecified; Z86.73 Personal history of transient ischemic attack (TIA), and cerebral infarction without residual deficits; Z87.442 Personal history of urinary calculi; Z99.89 Dependence on other enabling machines and devices; Z88.5 Allergy status to narcotic agent; Z91.041 Radiographic dye allergy status; Z79.82 Long term (current) use of aspirin; Z79.84 Long term (current) use of oral hypoglycemic drugs; Z87.891 Personal history of nicotine dependence; Z68.43 Body mass index [BMI] 50.0-59.9, adult; Z82.49 Family history of ischemic heart disease and other diseases of the circulatory system
CPT/HCPCS: 36415; 80053; 81000; 85025; 93041; 96374; 96375; 96376

== ENCOUNTER 2019-08-08 12:29 | Inpatient (IN) | payer MEDICARE, OTHER ==
[~2019-08-08] VITALS: Ht 188 cm; Wt 236.3 kg
[~2019-08-08 12:29] MED LIST changes: +FAMO40TA72 PO; -MAGN400T6 PO; +MAGN400T8 PO; -METO-395 PO; +MTP100TCR PO; +OMEP-280 PO; -OMEP20CA13 PO; +SILV20CR14 TP
[2019-08-08] MEDS ORDERED: RT-ALBUTEROL/IPRATROPIUM 3 ML (DUONEB) VIAL INH ONE (12:45)
[2019-08-08 13:01] LABS: BASOPHILS % (AUTO) 0 % (0-10); EOSINOPHILS # (AUTO) 0.1 10^3/uL (0.0-0.3); EOSINOPHILS % (AUTO) 2 % (0-10); HEMATOCRIT 40 % (40-54); HEMOGLOBIN 11.6 G/DL (13.3-17.7); LYMPHOCYTES % (AUTO) 14 % (12-44); MEAN CORPUSCULAR HEMOGLOBIN 25 PG (25-34); MEAN CORPUSCULAR HGB CONC 29 G/DL (32-36); MEAN CORPUSCULAR VOLUME 87 FL (80-99); MEAN PLATELET VOLUME 10.3 FL (7.4-10.4); MONOCYTES # (AUTO) 0.9 X 10^3 (0.0-1.0); MONOCYTES % (AUTO) 12 % (0-12); NEUTROPHILS % (AUTO) 72 % (42-75); PLATELET COUNT 308 10^3/uL (130-400); RED CELL DISTRIBUTION WIDTH 15.7 % (10.0-14.5)
[2019-08-08 13:18] LABS: ALBUMIN 3.1 GM/DL (3.2-4.5); CALCIUM 8.6 MG/DL (8.5-10.1); CREATININE SERUM 2.44 MG/DL (0.60-1.30); MAGNESIUM 1.9 MG/DL (1.6-2.4); POTASSIUM 4.4 MMOL/L (3.6-5.0); TOTAL PROTEIN 7.5 GM/DL (6.4-8.2)
--- NOTE | 2019-08-08 13:19 | Diagnostic Imaging Report ---
CLINICAL INDICATION: Patient with edema. EXAM: Portable chest x-ray upright view. COMPARISON: Portable chest x-ray dated 12/22/2018 and 09/22/2018. FINDINGS: There is stable cardiomegaly. Pulmonary vasculature is stable and not significantly congested. There is stable appearance of the lung torres. There is development of minimal discoid atelectasis involving the right lower/mid lung field region. The right costophrenic angle region is blunted and a small pleural effusion cannot be completely excluded. Patient's body habitus may also cause this appearance. There is no other significant interval abnormality seen. IMPRESSION: 1. Stable cardiomegaly with no significant pulmonary vascular congestion. 2: There is development of minimal discoid atelectasis in the right mid lung base region. 3: The right costophrenic angle region is obscured and a small pleural effusion cannot be completely excluded. Dictated by: Dictated on workstation # [id number]
[2019-08-08] MEDS ORDERED: fentaNYL INJECTION 100 MCG/2 ML AMP IVP PRN (13:30)
[2019-08-08 13:43] LABS: FREE T4 (FREE THYROXINE) 0.86 NG/DL (0.70-1.48)
[2019-08-08] MEDS ORDERED: FUROSEMIDE 40 MG/4 ML INJ (LASIX) IVP ONE ×2 (14:00→14:30)
[2019-08-08 14:03] LABS: INR 1.2 (0.8-1.4); PROTHROMBIN TIME PATIENT 16.1 SEC (12.2-14.7)
[2019-08-08] MEDS ORDERED: morphine INJ 10 MG/ML 1ML (SYR OR VIAL) IVP STA (14:03)
--- NOTE | 2019-08-08 14:03 | ED General ---
General Chief Complaint: Respiratory Problems Stated Complaint: EDEMA;OPEN SORES Nursing Triage Note: PT TO RM 8 BY [facility] WITH CC OF RESP TROUBLE DO TO FLUID OVERLOAD. Nursing Sepsis Screen: No Definite Risk Source of Information: Patient, EMS, Old Records Exam Limitations: No Limitations History of Present Illness Date Seen by Provider: Aug 08, 2019 Time Seen by Provider: 12:30 Initial Comments This 64-year-old gentleman presents to the emergency room via EMS because of progressive edema causing functional decline. He is no longer able to get up and down to the bathroom and is becoming quite short of breath. His legs feel very edematous and the edema extends up into the lower abdomen. His has been performing wound care and wraps on his legs. He sees the MD in [place] for his primary care. He has history of congestive heart failure. Patient arrives with 4 L of oxygen by nasal cannula. He normally only wears oxygen at night. Allergies and Home Medications Allergies Coded Allergies: fentanyl (Verified Allergy, Severe, 08/08/19) meperidine (Verified Allergy, Unknown, 02/12/17) Uncoded Allergies: iv contrast (Adverse Reaction, Intermediate, 07/10/17) Home Medications Aspirin 81 Mg Tablet.dr, 81 MG PO DAILY, (Reported) Benazepril HCl 20 Mg Tablet, 2 TAB PO DAILY, (Reported) Cyanocobalamin (Vitamin B-12) 1,000 Mcg Tablet, 1,000 MCG PO DAILY, (Reported) Famotidine 40 Mg Tablet, 40 MG PO DAILY Prescribed by: BREANN WING on 06/04/19 1301 Furosemide 40 Mg Tablet, 2 TAB PO DAILY, (Reported) Gabapentin 100 Mg Capsule, 100 MG PO DAILY, (Reported) Gabapentin 100 Mg Capsule, 300 MG PO HS, (Reported) Glipizide 10 Mg Tablet, 10 MG PO BID, (Reported) Hydrocodone Bit/Acetaminophen 1 Tab Tab, 1 TAB PO BID PRN for PAIN-MODERATE, (Reported) Levothyroxine Sodium 300 Mcg Tablet, 300 MCG PO DAILY, (Reported) Metformin HCl 500 Mg Tablet, 1,000 MG PO BID, (Reported) Metoprolol Succinate 100 Mg Tab.er.24h, 100 MG PO HS, (Reported) Metoprolol Succinate 200 Mg Tab.er.24h, 200 MG PO DAILY, (Reported) Omeprazole 20 Mg Capsule.dr, 20 MG PO DAILY, (Reported) Potassium Chloride 20 Meq Tablet.er, 20 MEQ PO DAILY, (Reported) Pravastatin Sodium 40 Mg Tablet, 20 MG PO HS, (Reported) Silver Sulfadiazine 20 Gm Cream..g., 0 TP BID Prescribed by: BREANN WING on 06/04/19 1301 Sulfamethoxazole/Trimethoprim 1 Each Tablet, 1 EACH PO BID Prescribed by: DEBI SORENSON on 12/24/18 1234 Sulfamethoxazole/Trimethoprim 1 Each Tablet, 1 EACH PO BID Prescribed by: BREANN WING on 06/04/19 1301 Topiramate 50 Mg Tablet, 25 MG PO BID, (Reported) Patient Home Medication List Home Medication List Reviewed: Yes Review of Systems Review of Systems Constitutional: no symptoms reported EENTM: no symptoms reported Respiratory: see HPI Cardiovascular: see HPI Gastrointestinal: no symptoms reported Genitourinary: no symptoms reported Musculoskeletal: other (chronic lower back pain) Skin: no symptoms reported Psychiatric/Neurological: No Symptoms Reported Hematologic/Lymphatic: No Symptoms Reported Immunological/Allergic: no symptoms reported Past Juomltw-Jdciax-Evkbak Hx Past Med/Social Hx: Reviewed and Corrections made Patient Social History Alcohol Use: Denies Use Recreational Drug Use: No Smoking Status: Former Smoker Type Used: Cigarettes Former Smoker, Quit: Feb 13, 1987 2nd Hand Smoke Exposure: No Recent Foreign Travel: No Contact w/Someone Who Travel: No Recent Infectious Disease Expo: No Recent Hopitalizations: No Physical Abuse: No Sexual Abuse: No Mistreated: No Fear: No Immunizations Up To Date Tetanus Booster (TDap): Unknown Date of Pneumonia Vaccine: Mar 29, 2017 Date of Influenza Vaccine: Mar 26, 2019 Seasonal Allergies Seasonal Allergies: No Past Medical History Surgeries: Yes (KNEE SURGERY, LEFT SHOULDER SURGERY, HERNIA REPAIR, ) Abdominal, Gallbladder, Orthopedic Respiratory: Yes (uses CPAP and oxygen at night.) Sleep Apnea, COPD Currently Using CPAP: Yes Currently Using BIPAP: No Cardiac: Yes (CHF) Cardiomyopathy, Chronic Edema/Swelling, Coronary Artery Disease, Heart Attack, High Cholesterol, Hypertension Neurological: Yes (TIA'S X 4; STROKE X 1) Neuropathy, Stroke, TIA Sexually Transmitted Disease: No HIV/AIDS: No Genitourinary: Yes Kidney Stones, Renal Failure Gastrointestinal: Yes Gastroesophageal Reflux Musculoskeletal: Yes (HIP FX; 2 TORN ROTATOR CUFFS; RIGHT HIP AND LOWER BACK PAIN ) Degenerate Disk Disease, Arthritis, Chronic Back Pain, Fractures Endocrine: Yes (MORBID OBESITY--WEIGHT 460#, PER PT ON 06/04/19) Hypothyroidsim, Diabetes, Non-Insulin dep HEENT: Yes Cataract Cancer: No Psychosocial: No Integumentary: Yes (LEG CELLULITIS; ABDOMINAL WALL CELLULITIS/PANNICULITIS) Recent Skin Changes Blood Disorders: No Adverse Reaction/Blood Tranf: No Family Medical History Cardiovascular disease 19 FATHER 19 MOTHER Diabetes mellitus 19 FATHER 19 MOTHER Hypercholesterolemia 19 FATHER 19 MOTHER Hypertension 19 FATHER 19 MOTHER Myocardial infarction 19 FATHER 19 MOTHER Heart Disease, Diabetes, Hypertension Physical Exam Vital Signs Vital Signs - First Documented 08/08/19 08/08/19 12:45 13:16 Temp 37.4 Pulse 99 Resp 20 B/P (MAP) 116/80 (92) Pulse Ox 99 O2 Delivery Nasal Cannula O2 Flow Rate 4.00 Capillary Refill : Greater Than 3 Seconds Height, Weight, BMI Height: 6'2.00" Weight: 371lbs. 1.0oz. 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35-5.85 10^6/uL Hemoglobin 11.6 L 13.3-17.7 G/DL Hematocrit 40 40-54 % Mean Corpuscular Volume 87 80-99 FL Mean Corpuscular Hemoglobin 25 25-34 PG Mean Corpuscular Hemoglobin Concent 29 L 32-36 G/DL Red Cell Distribution Width 15.7 H 10.0-14.5 % Platelet Count 308 130-400 10^3/uL Mean Platelet Volume 10.3 7.4-10.4 FL Neutrophils (%) (Auto) 72 42-75 % Lymphocytes (%) (Auto) 14 12-44 % Monocytes (%) (Auto) 12 0-12 % Eosinophils (%) (Auto) 2 0-10 % Basophils (%) (Auto) 0 0-10 % Neutrophils # (Auto) 5.0 1.8-7.8 X 10^3 Lymphocytes # (Auto) 1.0 1.0-4.0 X 10^3 Monocytes # (Auto) 0.9 0.0-1.0 X 10^3 Eosinophils # (Auto) 0.1 0.0-0.3 10^3/uL Basophils # (Auto) 0.0 0.0-0.1 10^3/uL Prothrombin Time 16.1 H 12.2-14.7 SEC INR Comment 1.2 0.8-1.4 Activated Partial Thromboplast Time 38 H 24-35 SEC Sodium Level 134 L 135-145 MMOL/L Potassium Level 4.4 3.6-5.0 MMOL/L Chloride Level 98 98-107 MMOL/L Carbon Dioxide Level 28 21-32 MMOL/L Anion Gap 8 5-14 MMOL/L Blood Urea Nitrogen 47 H 7-18 MG/DL Creatinine 2.44 H 0.60-1.30 MG/DL Estimat Glomerular Filtration Rate 27 BUN/Creatinine Ratio 19 Glucose Level 177 H 70-105 MG/DL Calcium Level 8.6 8.5-10.1 MG/DL Corrected Calcium 9.3 8.5-10.1 MG/DL Magnesium Level 1.9 1.6-2.4 MG/DL Total Bilirubin 1.0 0.1-1.0 MG/DL Aspartate Amino Transf (AST/SGOT) 26 5-34 U/L Alanine Aminotransferase (ALT/SGPT) 20 0-55 U/L Alkaline Phosphatase 553 H 40-136 U/L B-Type Natriuretic Peptide 435.3 H <100.0 PG/ML Total Protein 7.5 6.4-8.2 GM/DL Albumin 3.1 L 3.2-4.5 GM/DL Thyroid Stimulating Hormone (TSH) 15.75 H 0.35-4.94 UIU/ML Free Thyroxine 0.86 0.70-1.48 NG/DL My Orders Orders - TIMOTHY GUALLPA MD BNP (08/08/19 12:42) Cbc With Automated Diff (08/08/19 12:42) Comprehensive Metabolic Panel (08/08/19 12:42) Magnesium (08/08/19 12:42) Chest 1 View, Ap/Pa Only (08/08/19 12:42) Ed Iv/Invasive Line Start (08/08/19 12:42) Ekg Tracing (08/08/19 12:42) Catheter(Urinary) Insert & Ass ,15 (08/08/19 12:42) Monitor-Rhythm Ecg Trace Only (08/08/19 12:42) Albuterol/Ipra Inhalation Soln (Duoneb I (08/08/19 12:45) Svn Small Volume Nebulizer (08/08/19 12:45) Thyroid Stimulating Hormone (08/08/19 12:56) Free T4 (Free Thyroxine) (08/08/19 12:56) Protime With Inr (08/08/19 13:52) Partial Thromboplastin Time (08/08/19 13:52) Ua Culture If Indicated (08/08/19 13:59) Furosemide Injection (Lasix Injection) (08/08/19 14:00) Morphine Injection (Morphine Injection (08/08/19 14:03) Furosemide Injection (Lasix Injection) (08/08/19 14:30) Echo W Doppler/Color Flow (08/08/19 14:17) Medications Given in ED Current Medications Medications Dose Ordered Sig/Brittany Route Start Time Stop Time Status Last Admin Dose Admin Albuterol/ Ipratropium 3 ml ONCE ONCE INH 08/08/19 12:45 08/08/19 12:50 DC 08/08/19 13:16 3 ML Fentanyl Citrate 25 mcg ONCE PRN IVP 08/08/19 13:30 08/08/19 14:02 DC 08/08/19 13:57 25 MCG Furosemide 40 mg ONCE ONCE IVP 08/08/19 14:00 08/08/19 14:01 DC 08/08/19 14:07 40 MG Vital Signs/I&O 08/08/19 08/08/19 08/08/19 08/08/19 12:45 13:16 13:57 14:08 Temp 37.4 37.4 37.4 Pulse 99 Resp 20 B/P (MAP) 116/80 (92) Pulse Ox 99 O2 Delivery Nasal Cannula Nasal Cannula O2 Flow Rate 4.00 3.00 Capillary Refill : Greater Than 3 Seconds Blood Pressure Mean: 92 Progress Note : Time: :22 Progress Note Case was first discussed with Dr. Sorenson. She requested administration of Lasix 40 mg. Labs were reviewed. She and I agree admission is appropriate. Patient will likely need physical therapy, wound care, fluid management, monitoring of intake and output, etc. Patient's talent analyst is Dr. Ayoub. I contacted him and he was consulted. He recommended an additional Lasix 40 mg IV dose. 2-D echo was also ordered to help clarify the status of his heart failure and hydration status. Patient had some pain associated with his catheter for which she was given morphine. He is accustomed to taking hydrocodone at home which was ordered on his bridging orders. ECG Initial ECG Impression Date: Aug 08, 2019 Initial ECG Impression Time: 12:52 Initial ECG Rate: 93 Initial ECG Rhythm: Normal Sinus Comment Normal sinus rhythm with no ST elevation or depression. First-degree AV block. No axis deviation. Diagnostic Imaging Diagonstic Imaging: Xray Plain Films/CT/US/NM/MRI: chest Comments Chest x-ray viewed by me and report reviewed. See report below: NAME: [facility] REC#: [id number] PT STATUS: REG ER : 1955 PHYSICIAN: TIMOTHY GUALLPA MD ADMIT DATE: 08/08/19/ER Draft Date of Exam:08/08/19 CHEST 1 VIEW, AP/PA ONLY CLINICAL INDICATION: Patient with edema. EXAM: Portable chest x-ray upright view. COMPARISON: Portable chest x-ray dated 12/22/2018 and 09/22/2018. FINDINGS: There is stable cardiomegaly. Pulmonary vasculature is stable and not significantly congested. There is stable appearance of the lung torres. There is development of minimal discoid atelectasis involving the right lower/mid lung field region. The right costophrenic angle region is blunted and a small pleural effusion cannot be completely excluded. Patient's body habitus may also cause this appearance. There is no other significant interval abnormality seen. IMPRESSION: 1. Stable cardiomegaly with no significant pulmonary vascular congestion. 2: There is development of minimal discoid atelectasis in the right mid lung base region. 3: The right costophrenic angle region is obscured and a small pleural effusion cannot be completely excluded. Dictated on workstation # [id number] Dict: 08/08/19 1312 Trans: 08/08/19 1318 [facility] [id number] Interpreted by: RENZO GOULD MD Departure Communication (Admissions) Time/Spoke to Admitting Phy: 14:00 Dr. Sorenson Time/Spoke to Consulting Phy: 14:10 Dr. Ayoub Impression Primary Impression: Fluid overload Qualified Codes: E87.70 - Fluid overload, unspecified Additional Impressions: COPD exacerbation Acute renal failure Qualified Codes: N17.9 - Acute kidney failure, unspecified Acute on chronic congestive heart failure Qualified Codes: I50.9 - Heart failure, unspecified Debility Morbid obesity Disposition: ADMITTED INPATIENT Condition: Improved Admissions Decision to Admit Reason: Admit from ER (General) Decision to Admit/Date: Aug 08, 2019 Time/Decision to Admit Time: 14:00 Departure-Patient Inst. Referrals: NO,LOCAL PHYSICIAN (PCP) Primary Care Physician CARON MARTÍNEZ (Family) Primary Care Physician TIMOTHY GUALLPA MD Aug 08, 2019 14:03
--- NOTE | 2019-08-08 14:07 | NUR ---
received pt transfer report from NELSON Alva.
[2019-08-08 14:09] LABS: BILIRUBIN,URINE NEGATIVE (NEGATIVE); CLARITY,URINE CLEAR; COLOR,URINE YELLOW; GLUCOSE, URINE (UA) NEGATIVE (NEGATIVE); KETONES,URINE NEGATIVE (NEGATIVE); LEUKOCYTE ESTERASE ,URINE NEGATIVE (NEGATIVE); NITRITE,URINE NEGATIVE (NEGATIVE); PROTEIN,URINE 1+ (NEGATIVE)
[2019-08-08 14:22] LABS: BACTERIA,URINE NEGATIVE /HPF; WBC,URINE RARE /HPF
--- NOTE | 2019-08-08 14:31 | NUR ---
DR. FISCHER IN WITH PT AT THIS TIME.
[2019-08-08 15:12] VITALS: BP 150/82
--- NOTE | 2019-08-08 15:20 | NUR ---
BOTTLES THE PATIENT HAS WITH HIM FROM THE [facility] [place]: 07-24-19 HYDROCODONE 5-325MG 1 BID PRN #40 07-22-19 LANTUS 70 UNITS DAILY #7 07-09-19 METFORMIN ER 500MG 2 BID #360 07-08-19 OMEPRAZOLE 20MG DAILY #90 07-02-19 METOPROLOL ER 200MG 1 AM 1/2 EVENING #135 (TAKES 1/2 TO 1 DEPENDING ON BP IN EVENING) 07-02-19 GABAPENTIN 100MG 1 AM 3 HS #90 04-22-19 PRAVASTATIN 40MG 1/2 HS #45 (ALSO FILLED #45 07-08-19) 02-21-19 CYCLOBENZAPRINE 10MG BID PRN #60 (ALSO FILLED #60 07-05-19) 01-14-19 VITAMIN B12 1000MCG DAILY #100 (ALSO FILLED #90 07-07-19) 12-10-18 ASPIRIN 81MG DAILY #120 (ALSO FILLED #120 07-05-19) 10-09-18 LEVOTHYROXINE 0.3MG DAILY #90 (MOST RECENTLY FILLED 200MCG TABS 2 DAILY #180 01-22-19 - SEE NOTE BELOW) 07-22-19 NOVOLOG FLEXPEN (STATES HE USES 20 UNITS BID, 0800 AND 1200) [facility] AND VERIFIED THEY HAVE F[facility] SOME OF THE ABOVE BOTTLES MORE RECENTLY THAN THE BOTTLES HE HAS STATE. HE ADMITS HE DUMPS THEM TOGETHER. HE DOES NOT HAVE HIS PROAIR INHALER, TOPAMAX, OR LASIX BOTTLES WITH HIM. HE STATES HE DOES TAKE THEM. IN ADDITION TO BOTTLES HE HAS WITH HIM [facility] FILLED: 07-08-19 FUROSEMIDE 40MG 2 DAILY #180 07-05-19 TOPIRAMATE 50MG #90 (STATES HE TAKES 1/2 TO 1 FOR MIGRAINES) WHEN I WENT BACK TO DISCUSS THE LEVOTHYROXINE WITH THE PATIENT HE STATES HE DOES REMEMBER THEM UPPING HIS DOSE AND HE HAS MADE A MISTAKE AND HAS NOT BEEN TAKING IT CORRECT. THE 300MCG TABS HE HAS HERE WITH HIM TODAY SHOULD HAVE BEEN GONE A LONG TIME AGO, THE INCREASED DOSE SHOULD BE GONE WELL. HE ADMITS HE FORGETS TO TAKE THEM SOMETIMES. HE HAS AN APPOINTMENT IN SEPTEMBER THAT HE CAN HAVE LABS DRAWN AND THEY WILL GET HIM FIGURED OUT, HE STATES HE IS SURE HE HAS THE HIGHER ORDERED DOSE AT HOME IN THE CAB[place]ET AND WILL START TAKING THAT DOSE WHEN HE RETURNS HOME. I HAVE UPDATED THE DOSE ON THE MED REC TO REFLECT THAT AT THIS TIME.
--- NOTE | 2019-08-08 15:29 | History & Physical-Hospitalist ---
[facility] 08/08/19 1529: History of Present Illness HPI/Chief Complaint CC: 'Leaking fluid from my legs' Mr. Sanders elina 64 WM that is presenting today because of Acute on Chronic Heart Failure and edema. He states that this started about 1 week ago, but has significantly worsened the past 2 days. He has attempted to control this most recent exacerbation with his furosemide, taking 80 mg po the past few mornings. He states that the fluid overload gets better toward the evenings, but is back to his current state in the morning. He denies changing his water intake. He states that his is adhering to his heart failure diet, taking all of his prescribed medications and has no illness prior to this exacerbation. He states that over the past month, he has been dealing with and attempting to treat cellulitis of both LE. He does confirm an increase in SOB and worsening dyspnea upon exertion. His history is significant for Diastolic Heart Failure, HTN, T2DM, HLP, Hypothyroidism, and multiple TIA. Source: patient Exam Limitations: no limitations Date Seen 08/08/19 Time Seen by a Provider: 13:30 Attending Physician Debi Sorenson MD PCP No,Local Physician Referring Physician Date of Admission Aug 08, 2019 at 14:06 Home Medications & Allergies Home Medications Reviewed patient Home Medication Reconciliation performed by pharmacy medication reconciliations electrical assembly technician and/or nursing. Patients Allergies have been reviewed. Allergies Allergies Coded Allergies fentanyl (Verified Allergy, Severe, 08/08/19) meperidine (Verified Allergy, Unknown, 02/12/17) Uncoded Allergies iv contrast ( Adverse Reaction, Intermediate, 07/10/17) Past Gcegfhc-Wiffku-Iawwou Hx Past Med/Social Hx: Reviewed and Corrections made Patient Social History Marrital Status: Number of Children: 2 Number of living children: 2 Employed/Student: retired Alcohol Use: Rarely Uses Recreational Drug Use: No Smoking Status: Former Smoker Cigaretts per day: 60 Former Smoker, Quit: Feb 13, 1987 Type Used: Cigarettes 2nd Hand Smoke Exposure: No Recent Foreign Travel: No Contact w/other who traveled: No Recent Hopitalizations: No Recent Infectious Disease Expo: No Immunizations Up To Date Tetanus Booster (TDap): Unknown Date of Pneumonia Vaccine: Mar 29, 2017 Date of Influenza Vaccine: Mar 26, 2019 Seasonal Allergies Seasonal Allergies: No Past Medical History Surgeries: Abdominal, Cardiac (3 cardiac catherizations w/o stents ), Gallbladder, Orthopedic Respiratory: Sleep Apnea Currently Using CPAP: Yes Currently Using BIPAP: No Cardiac: Cardiomyopathy, Chronic Edema/Swelling, Coronary Artery Disease, Heart Attack, High Cholesterol, Hypertension Neurological: Neuropathy, Stroke, TIA Sexually Transmitted Disease: No HIV/AIDS: No Genitourinary: Kidney Stones, Renal Failure Gastrointestinal: Gastroesophageal Reflux Musculoskeletal: Degenerate Disk Disease, Arthritis, Chronic Back Pain, Fractures Endocrine: Hypothyroidsim, Diabetes, Non-Insulin dep (Has Lantus + Novalog ) HEENT: Cataract Loss of Vision: Bilateral Hearing Impairment: Hard of Hearing, Bilateral Hearing Aide Skin/Integumentary: Recent Skin Changes History of Blood Disorders: No Adverse Reaction to Blood Pratt: No Family History Cardiovascular disease 19 FATHER 19 MOTHER Diabetes mellitus 19 FATHER 19 MOTHER Hypercholesterolemia 19 FATHER 19 MOTHER Hypertension 19 FATHER 19 MOTHER Myocardial infarction 19 FATHER 19 MOTHER Heart Disease, Diabetes, Hypertension Review of Systems Constitutional: No no symptoms reported, No see HPI, No chills, No diaphoresis, No dizziness, No fever; malaise, weakness; No weight gain, No weight loss, No other EENTM: No see HPI, No no symptoms reported, No ear discharge, No hearing loss, No ear pain, No blurred vision, No double vision, No eye pain, No tearing, No vision loss, No dental problems, No hoarseness, No mouth pain, No mouth swelling, No epistaxis, No nose congestion, No nose pain, No throat pain, No throat swelling, No other Respiratory: No no symptoms reported, No see HPI, No cough; dyspnea on exertion; No hemoptysis; orthopnea; No phlegm; short of breath; No stridor, No wheezing, No other Cardiovascular: No no symptoms reported, No see HPI, No chest pain, No edema, No Hx of Intervention, No palpitations, No syncope, No vascular heart diseas, No other Gastrointestinal: No RUQ, No LUQ, No RLQ, No LLQ, No no symptoms reported, No see HPI, No abdominal pain; constipation; No diarrhea, No dysphagia, No hematemesis; heartburn; No jaundice, No loss of appetite, No melena, No nausea, No vomiting, No other Genitourinary: No no symptoms reported, No see HPI, No decreased output, No discharge, No dysuria, No frequency, No hematuria, No hesitancy, No incontinence, No nocturia, No pain, No other Musculoskeletal: No no symptoms reported, No see HPI; back pain; No gout; joint pain; No joint swelling, No muscle pain, No muscle stiffness; muscle cramps; No muscle twitching, No muscle weakness, No neck pain, No other Skin: No no symptoms reported, No see HPI, No change in color, No change in hair/nails, No dryness, No hx of skin cancer, No lesions, No lumps, No pruritus, No rash; other (low leg cellulitis and edema + paniculitis of the abdomen ) Psychiatric/Neurological: Denies No Symptoms Reported, Denies See HPI, Denies Anxiety, Denies Depressed, Denies Emotional Problems, Denies Headache, Denies Numbness, Denies Paresthesia, Denies Pre-Existing Deficit, Denies Seizure, Denies Tingling, Denies Tremors, Denies Weakness, Denies Other Physical Exam Physical Exam Vital Signs Vital Signs - First Documented 08/08/19 08/08/19 12:45 13:16 Temp 37.4 Pulse 99 Resp 20 B/P (MAP) 116/80 (92) Pulse Ox 99 O2 Delivery Nasal Cannula O2 Flow Rate 4.00 Capillary Refill : Greater Than 3 Seconds Height, Weight, BMI Height: 6'2.00" Weight: 371lbs. 1.0oz. 168.183027nx; 69.00 BMI Method:Stated General Appearance: WD/WN, Moderate Distress Eyes: Bilateral Eye Normal Inspection, Bilateral Eye PERRL, Bilateral Eye EOMI HEENT: PERRL/EOMI, Normal ENT Inspection, Pharynx Normal, Moist Mucous Membranes Neck: Normal Inspection, Non Tender, Supple Respiratory: Chest Non Tender, Lungs Clear, Normal Breath Sounds, No Accessory Muscle Use, No Respiratory Distress Cardiovascular: Regular Rate, Rhythm, No Edema, No Gallop, No JVD, No Murmur, Normal Peripheral Pulses Gastrointestinal: Normal Bowel Sounds, No Organomegaly, No Pulsatile Mass, Non Tender, Soft, Distended Extremity: Normal Capillary Refill, Normal Inspection, Normal Range of Motion, Non Tender, No Calf Tenderness, No Pedal Edema Neurologic/Psychiatric: Alert, Oriented x3, No Motor/Sensory Deficits, Normal Mood/Affect, monument installer II-XII Norm as Tested Skin: Normal Color, Warm/Dry Lymphatic: No Adenopathy Results Results/Procedures Labs Laboratory Tests 08/08/19 12:50 Patient resulted labs reviewed. Imaging: Reviewed Imaging Films, Reviewed Imaging Report Assessment/Plan Admission Diagnosis Acute on Chronic HF + Fluid Overload Admission Status: Inpatient Order (span 2 midnights) Assessment and Plan Acute on Chronic HF: - Furosemide - 80 mg IV - Continue Metropolol as prescribed - < 2g Na diet - Fluid Restriction - Echocardiogram to assess heart function - Maintain NIO2: stats > 90 - Vitals q6h Hypothyroidism: - Continue current dose of Synthroid DM- Insulin Dependent: - Continue Lantus QD + Novalog TID - Hold Metformin Pulmonary: COPD - MAT protocol HTN: - Continue Metropolol RORY: - Continue to uses home CPAP DVT prophylaxis: - Continue 81 mg PO Aspirin QD - Lovenox BID 40 mg - AntiXa lab for therapeutic level GERD: - Continue Omeprazole OA + Degenerative Disk Disease: - Hydrocodone 5 mg/325 mg PRN Q6h DEBI SORENSON MD 08/08/19 1612: Past Lwdfbok-Mmpqik-Oninwl Hx Family History Cardiovascular disease 19 FATHER 19 MOTHER Diabetes mellitus 19 FATHER 19 MOTHER Hypercholesterolemia 19 FATHER 19 MOTHER Hypertension 19 FATHER 19 MOTHER Myocardial infarction 19 FATHER 19 MOTHER Assessment/Plan Admission Diagnosis Reason for Inpatient Admission: IV diuretics, will take more then two midnights to stabilize for DC Assessment and Plan Pt has a week long history of worsening edema and shortness of breath. He reports compliance with diuretics but despite this symptoms have been worsening. His legs has started to weep from the edema and he noticed his abdomen was more edematous then normal. He was found to be in florid heart failure on arrival to the ER and was started on supplemental oxygen and diuresis was initiated. Exam is consistent with fluid overload but is somewhat limited due to body habitus (232kg). I was unable to hears any crackles in lungs and legs are quite edematous but non-pitting. I will admit him with cardiology consultation and repeat echo. We will continue IV diuresis and place him on a Low Sodium diet. His TSH was found to be elevated but T4 is normal so will continue home dose as may be sick euthyroid. I am unsure of compliance given massive dose (400mcg) but will recommend repeat TSH as an outpatient Supervisory-Addendum Brief Verification & Attestation Participated in pt care: history, MDM, physical Personally performed: exam, history, MDM, supervision of care Care discussed with: Medical Student Procedures: n/a Results interpretation: Verified all documentation Verification and Attestation of Medical Student E/M Service A medical student performed and documented this service in my presence. I reviewed and verified all information documented by the medical student and made modifications to such information, when appropriate. I personally performed the physical exam and medical decision making. Debi Sorenson, Aug 08, 2019,16:12 [facility] Aug 08, 2019 15:29 DEBI SORENSON MD Aug 08, 2019 16:12
[2019-08-08] MEDS ORDERED: INSU100V6 SQ (15:31)
[2019-08-08] MEDS ORDERED: METF-478 PO (15:31)
[2019-08-08] MEDS ORDERED: CYCL10TA9 PO (15:31)
[2019-08-08] MEDS ORDERED: INSU100I14 SQ (15:31)
[2019-08-08] MEDS ORDERED: PATIENT MAY USE OWN MEDS, ALL MC SCH (15:45)
[2019-08-08 15:47] VITALS: BP 127/76
[2019-08-08] MEDS ORDERED: RT-ALBUINH IH (15:51)
--- NOTE | 2019-08-08 15:56 | Consultation-Cardiology ---
HPI-Cardiology Cardiology Consultation: Date of Consultation 08/08/19 Time Seen by a Provider: 16:30 Date of Admission 08-08-2019 Attending Physician Tika Sorenson MD Admitting Physician No,Local Physician Consulting Physician Tu Ayoub HPI: Chief Complaint: Acute on chronic systolic/diastolic CHF Mr. Yanez is a 64 year old male admitted to 432 from the ED with increasing SOB, bilat LE swelling and progressive weakness. He states he has had progressive bilat LE swelling for the last few days to the point where his legs have been weeping. He reports he has been taking Lasix 80mg daily, as prescribed, but it has not helped the swelling. He denies any c/o CP, palpitations, syncope or near syncope. He denies any fever or chills. No c/o n/v/d. He reports he has had constipation. Review of Systems-Cardiology Review of Systems Constitutional: No chills, No fever; malaise Eyes: No vision change Ears/Nose/Throat: No epistaxis, No recent hearing loss Respiratory: As described under HPI Cardiovascular: As described under HPI Gastrointestinal: As described under HPI Genitourinary: No hematuria; other (decreased urinary output) Musculoskeletal: other (back and hip pain) Skin: As described under HPI Psychiatric/Neurological: No anxiety, No depression, No seizure, No syncope Hematologic: No bleeding abnormalities VAF-Krwrsx-Qvncmj Hx Patient Social History Alcohol Use: Denies Use Recreational Drug Use: No Smoking Status: Former Smoker Type Used: Cigarettes 2nd Hand Smoke Exposure: No Recent Foreign Travel: No Recent Infectious Disease Expo: No Immunizations Up To Date Tetanus Booster (TDap): Unknown Date of Pneumonia Vaccine: Mar 29, 2017 Date of Influenza Vaccine: Mar 26, 2019 Past Medical History PMH As described under Assessment. Family Medical History Family Medical History: Reported family h/o of father and mother having CAD, HTN, HLD and DM. Family History: 19 FATHER Diabetes mellitus Cardiovascular disease Myocardial infarction Hypertension Hypercholesterolemia 19 MOTHER Diabetes mellitus Cardiovascular disease Myocardial infarction Hypertension Hypercholesterolemia Allergies and Home Medications Allergies Coded Allergies: fentanyl (Verified Allergy, Severe, 08/08/19) meperidine (Verified Allergy, Unknown, 02/12/17) Uncoded Allergies: iv contrast (Adverse Reaction, Intermediate, 07/10/17) Home Medications Albuterol Sulfate 1 Puff Puff, 2 PUFF IH Q4H PRN for SHORTNESS OF BREATH, (Reported) 1 PUFF = 90 MCG Aspirin 81 Mg Tablet.dr, 81 MG PO HS, (Reported) Cyanocobalamin (Vitamin B-12) 1,000 Mcg Tablet, 1,000 MCG PO DAILY, (Reported) Cyclobenzaprine HCl 10 Mg Tablet, 10 MG PO BID PRN for MUSCLE SPASMS, (Reported) Furosemide 40 Mg Tablet, 80 MG PO DAILY, (Reported) TAKES 2 (40MG) TABLETS Gabapentin 100 Mg Capsule, 100 MG PO DAILY, (Reported) Gabapentin 100 Mg Capsule, 300 MG PO HS, (Reported) TAKES 3 (100MG) CAPSULES Hydrocodone Bit/Acetaminophen 1 Tab Tab, 1 TAB PO BID PRN for PAIN-MODERATE, (Reported) Insulin Aspart 300 Units/3 Ml Solution, 20 UNITS SQ 0800,1200, (Reported) Insulin Glargine,Hum.rec.anlog 100 Unit/1 Ml Vial, 70 UNIT SQ HS, (Reported) Levothyroxine Sodium 200 Mcg Tablet, 400 MCG PO DAILY, (Reported) TAKES 2 (200MCG) TABLETS Metformin HCl 500 Mg Tab.er.24, 1,000 MG PO BID, (Reported) TAKES 2 (500MG) TABLETS Metoprolol Succinate 100 Mg Tab.er.24h, 100-200 MG PO HS, (Reported) TAKES 1/2 TO 1 (200MG) TABLET DEPENDING ON BLOOD PRESSURE Metoprolol Succinate 200 Mg Tab.er.24h, 200 MG PO DAILY, (Reported) Omeprazole 20 Mg Capsule.dr, 20 MG PO DAILY, (Reported) Pravastatin Sodium 40 Mg Tablet, 20 MG PO HS, (Reported) TAKES 1/2 (40MG) TABLET Topiramate 50 Mg Tablet, 25-50 MG PO HS, (Reported) Patient Home Medication List Home Medication List Reviewed: Yes Physical Exam-Cardiology Physical Exam Vital Signs/I&O 08/08/19 08/08/19 08/08/19 08/08/19 12:45 13:16 13:57 14:08 Temp 37.4 37.4 37.4 Pulse 99 Resp 20 B/P (MAP) 116/80 (92) Pulse Ox 99 O2 Delivery Nasal Cannula Nasal Cannula O2 Flow Rate 4.00 3.00 08/08/19 08/08/19 08/08/19 08/08/19 14:45 15:12 15:47 16:07 Temp 37.4 36.2 36.5 37.4 Pulse 92 91 89 99 Resp 20 22 24 B/P (MAP) 129/97 (92) 150/82 127/76 (93) Pulse Ox 96 98 98 99 O2 Delivery Nasal Cannula Nasal Cannula Nasal Cannula O2 Flow Rate 2.00 3.00 3.00 FiO2 32 Capillary Refill : Greater Than 3 Seconds Constitutional: AAO x 3, other (morbidly obese) HEENT: PERRL, hearing is well preserved Neck: No carotid bruit Respiratory: No accessory muscle use, No respiratory distress; chest expansion is symmetric, chest is bilaterally symmetric, other (fair air entry) Cardiovascular: regular rate-rhythm; No JVD; S1 and S2 Gastrointestinal: distended, audible bowel sounds Genital/Rectal: other (indwelling urinary catheter to DD with clear, adelita urine) Neurologic/Psychiatric: grossly intact (moves extremieties) Skin: other (abdominal striae; ruddish discoloration to bilat LE with dressings in place which were not removed) Data Review Labs Laboratory Tests 08/08/19 12:50: White Blood Count 7.0, Red Blood Count 4.58, Hemoglobin 11.6L, Hematocrit 40, Mean Corpuscular Volume 87, Mean Corpuscular Hemoglobin 25, Mean Corpuscular Hemoglobin Concent 29L, Red Cell Distribution Width 15.7H, Platelet Count 308, Mean Platelet Volume 10.3, Neutrophils (%) (Auto) 72, Lymphocytes (%) (Auto) 14, Monocytes (%) (Auto) 12, Eosinophils (%) (Auto) 2, Basophils (%) (Auto) 0, Neutrophils # (Auto) 5.0, Lymphocytes # (Auto) 1.0, Monocytes # (Auto) 0.9, Eosinophils # (Auto) 0.1, Basophils # (Auto) 0.0, Prothrombin Time 16.1H, INR Comment 1.2, Activated Partial Thromboplast Time 38H, Sodium Level 134L, Potassium Level 4.4, Chloride Level 98, Carbon Dioxide Level 28, Anion Gap 8, Blood Urea Nitrogen 47H, Creatinine 2.44H, Estimat Glomerular Filtration Rate 27, BUN/Creatinine Ratio 19, Glucose Level 177H, Calcium Level 8.6, Corrected Calcium 9.3, Magnesium Level 1.9, Total Bilirubin 1.0, Aspartate Amino Transf (AST/SGOT) 26, Alanine Aminotransferase (ALT/SGPT) 20, Alkaline Phosphatase 553H , B-Type Natriuretic Peptide 435.3H, Total Protein 7.5, Albumin 3.1L, Thyroid Stimulating Hormone (TSH) 15.75H, Free Thyroxine 0.86 08/08/19 13:10: Urine Color YELLOW, Urine Clarity CLEAR, Urine pH 6.0, Urine Specific Bradford 1.015L, Urine Protein 1+H, Urine Glucose (UA) NEGATIVE, Urine Ketones NEGATIVE, Urine Nitrite NEGATIVE, Urine Bilirubin NEGATIVE, Urine Urobilinogen 1.0, Urine Leukocyte Esterase NEGATIVE, Urine RBC (Auto) NEGATIVE, Urine RBC NONE, Urine WBC RARE, Urine Squamous Epithelial Cells NONE, Urine Crystals NONE, Urine Bacteria NEGATIVE, Urine Casts NONE, Urine Mucus NEGATIVE, Urine Culture Indicated NO Laboratory Tests 08/08/19 12:50 Radiology NAME: LONG YANEZ [facility] REC#: [id number] PT STATUS: REG ER : 1955 PHYSICIAN: TIMOTHY GUALLPA MD ADMIT DATE: 08/08/19/ER Draft Date of Exam:08/08/19 CHEST 1 VIEW, AP/PA ONLY CLINICAL INDICATION: Patient with edema. EXAM: Portable chest x-ray upright view. COMPARISON: Portable chest x-ray dated 12/22/2018 and 09/22/2018. FINDINGS: There is stable cardiomegaly. Pulmonary vasculature is stable and not significantly congested. There is stable appearance of the lung torres. There is development of minimal discoid atelectasis involving the right lower/mid lung field region. The right costophrenic angle region is blunted and a small pleural effusion cannot be completely excluded. Patient's body habitus may also cause this appearance. There is no other significant interval abnormality seen. IMPRESSION: 1. Stable cardiomegaly with no significant pulmonary vascular congestion. 2: There is development of minimal discoid atelectasis in the right mid lung base region. 3: The right costophrenic angle region is obscured and a small pleural effusion cannot be completely excluded. 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 Quit smoking in the 1980s DM II with diabetic nephropathy Hyperlipidemia, by history Chronic back pain Chronic leg swelling, likely related to venous insuff Symptoms of claudication, but seg pressures of 09/01/17 did not show any significant obstructive disease of the legs Discussion and Recomendations Acute chronic systolic CHF - give diuretics Acute on CKD stage 4 Monitor lab closely Continue home medications Echocardiogram Replace electrolytes as indicated TSH suggestive of hypothyroidism - management per medical services Further recs will be based on his hospital course We would like to thank medical services for this consult Clinical Quality Measures DVT/VTE Risk/Contraindication: Risk Factor Score Per Nursin RFS Level Per Nursing on Admit: 4+=Very High MOLLY APPLE Aug 08, 2019 15:55
[2019-08-08] MEDS ORDERED: FURO40TA4 PO (16:00)
[2019-08-08 16:07] VITALS: BP 116/80
[2019-08-08] MEDS ORDERED: LEVO200T6 PO (16:07)
[2019-08-08] MEDS ORDERED: CYCLOBENZAPRINE 10 MG (FLEXERIL) TAB PO PRN (16:15)
[2019-08-08] MEDS: HYDROcodone/APAP 5 MG/325 MG (LORTAB) TAB PO PRN ×2 (17:12→21:56)
[2019-08-08] MEDS: RT-ALBUTEROL/IPRATROPIUM 3 ML (DUONEB) VIAL INH SCH ×2 (18:02→22:32)
[2019-08-08] MEDS: ENOXAPARIN 60 MG/0.6 ML (LOVENOX) SYR SC SCH (18:44)
[2019-08-08 19:21] VITALS: BP 126/82
--- NOTE | 2019-08-08 19:46 | Consultation-Cardiology ---
HPI-Cardiology Cardiology Consultation: Date of Consultation 08/08/19 Time Seen by a Provider: 19:30 Date of Admission Attending Physician Tika Sorenson MD Admitting Physician No,Local Physician Consulting Physician LANCE TAPIA MD, FACP, FACC HPI: Chief Complaint: Reason for consultation: Acute on chronic systolic/diastolic CHF HPI Mr. Sanders is a 64 year old male admitted to 432 from the ED with increasing SOB, bilat LE swelling and progressive weakness. He states he has had progressive bilat LE swelling for the last few days to the point where his legs have been weeping. He reports he has been taking Lasix 80mg daily, as prescribed, but it has not helped the swelling. He denies any c/o CP, pal pitations, syncope or near syncope. He denies any fever or chills. No c/o n/v/d. He reports he has had constipation. Review of Systems-Cardiology Review of Systems Constitutional: No chills, No fever; malaise Eyes: No vision change Ears/Nose/Throat: No epistaxis, No recent hearing loss Respiratory: As described under HPI Cardiovascular: As described under HPI Gastrointestinal: As described under HPI Genitourinary: No hematuria; other (decreased urinary output) Musculoskeletal: other (back and hip pain) Skin: As described under HPI Psychiatric/Neurological: No anxiety, No depression, No seizure, No syncope Hematologic: No bleeding abnormalities [id number] Hx Patient Social History Marrital Status: Number of Children: 2 Number of living children: 2 Employed/Student: retired Alcohol Use: Rarely Uses Recreational Drug Use: No Smoking Status: Former Smoker Cigaretts per day: 60 Type Used: Cigarettes 2nd Hand Smoke Exposure: No Recent Foreign Travel: No Recent Infectious Disease Expo: No Immunizations Up To Date Tetanus Booster (TDap): Unknown Date of Pneumonia Vaccine: Mar 29, 2017 Date of Influenza Vaccine: Mar 26, 2019 Past Medical History PMH As described under Assessment. Family Medical History Family Medical History: Reported family h/o of father and mother having CAD, HTN, HLD and DM. Family History: Cardiovascular disease 19 FATHER 19 MOTHER Diabetes mellitus 19 FATHER 19 MOTHER Hypercholesterolemia 19 FATHER 19 MOTHER Hypertension 19 FATHER 19 MOTHER Myocardial infarction 19 FATHER 19 MOTHER Allergies and Home Medications Allergies Coded Allergies: fentanyl (Verified Allergy, Severe, 08/08/19) meperidine (Verified Allergy, Unknown, 02/12/17) Uncoded Allergies: iv contrast (Adverse Reaction, Intermediate, 07/10/17) Home Medications Albuterol Sulfate 1 Puff Puff, 2 PUFF IH Q4H PRN for SHORTNESS OF BREATH, (Reported) 1 PUFF = 90 MCG Aspirin 81 Mg Tablet.dr, 81 MG PO HS, (Reported) Cyanocobalamin (Vitamin B-12) 1,000 Mcg Tablet, 1,000 MCG PO DAILY, (Reported) Cyclobenzaprine HCl 10 Mg Tablet, 10 MG PO BID PRN for MUSCLE SPASMS, (Reported) Furosemide 40 Mg Tablet, 80 MG PO DAILY, (Reported) TAKES 2 (40MG) TABLETS Gabapentin 100 Mg Capsule, 100 MG PO DAILY, (Reported) Gabapentin 100 Mg Capsule, 300 MG PO HS, (Reported) TAKES 3 (100MG) CAPSULES Hydrocodone Bit/Acetaminophen 1 Tab Tab, 1 TAB PO BID PRN for PAIN-MODERATE, (Reported) Insulin Aspart 300 Units/3 Ml Solution, 20 UNITS SQ 0800,1200, (Reported) Insulin Glargine,Hum.rec.anlog 100 Unit/1 Ml Vial, 70 UNIT SQ HS, (Reported) Levothyroxine Sodium 200 Mcg Tablet, 400 MCG PO DAILY, (Reported) TAKES 2 (200MCG) TABLETS Metformin HCl 500 Mg Tab.er.24, 1,000 MG PO BID, (Reported) TAKES 2 (500MG) TABLETS Metoprolol Succinate 100 Mg Tab.er.24h, 100-200 MG PO HS, (Reported) TAKES 1/2 TO 1 (200MG) TABLET DEPENDING ON BLOOD PRESSURE Metoprolol Succinate 200 Mg Tab.er.24h, 200 MG PO DAILY, (Reported) Omeprazole 20 Mg Capsule.dr, 20 MG PO DAILY, (Reported) Pravastatin Sodium 40 Mg Tablet, 20 MG PO HS, (Reported) TAKES 1/2 (40MG) TABLET Topiramate 50 Mg Tablet, 25-50 MG PO HS, (Reported) Patient Home Medication List Home Medication List Reviewed: Yes Physical Exam-Cardiology Physical Exam Vital Signs/I&O 08/08/19 08/08/19 08/08/19 08/08/19 12:45 13:16 13:57 14:08 Temp 37.4 37.4 37.4 Pulse 99 Resp 20 B/P (MAP) 116/80 (92) Pulse Ox 99 O2 Delivery Nasal Cannula Nasal Cannula O2 Flow Rate 4.00 3.00 08/08/19 08/08/19 08/08/19 08/08/19 14:45 15:12 15:47 16:07 Temp 37.4 36.2 36.5 37.4 Pulse 92 91 89 99 Resp 20 22 24 B/P (MAP) 129/97 (92) 150/82 127/76 (93) Pulse Ox 96 98 98 99 O2 Delivery Nasal Cannula Nasal Cannula Nasal Cannula O2 Flow Rate 2.00 3.00 3.00 FiO2 32 08/08/19 08/08/19 08/08/19 08/08/19 17:31 18:00 18:02 19:21 Temp 35.2 Pulse 92 92 Resp 24 B/P (MAP) 126/82 (97) Pulse Ox 99 96 96 O2 Delivery Nasal Cannula Nasal Cannula Nasal Cannula O2 Flow Rate 3.00 2.50 3.00 Capillary Refill : Greater Than 3 Seconds Constitutional: AAO x 3, other (morbidly obese) HEENT: PERRL, hearing is well preserved Neck: No carotid bruit Respiratory: No accessory muscle use, No respiratory distress; chest expansion is symmetric, chest is bilaterally symmetric, other (fair air entry) Cardiovascular: regular rate-rhythm; No JVD; S1 and S2 Gastrointestinal: distended, audible bowel sounds Genital/Rectal: other (indwelling urinary catheter to DD with clear, adelita urine) Neurologic/Psychiatric: grossly intact (moves extremieties) Skin: other (abdominal striae; ruddish discoloration to bilat LE with dressings in place which were not removed) Data Review Labs Laboratory Tests 08/08/19 12:50: White Blood Count 7.0, Red Blood Count 4.58, Hemoglobin 11.6L, Hematocrit 40, Mean Corpuscular Volume 87, Mean Corpuscular Hemoglobin 25, Mean Corpuscular Hemoglobin Concent 29L, Red Cell Distribution Width 15.7H, Platelet Count 308, Mean Platelet Volume 10.3, Neutrophils (%) (Auto) 72, Lymphocytes (%) (Auto) 14, Monocytes (%) (Auto) 12, Eosinophils (%) (Auto) 2, Basophils (%) (Auto) 0, Neutrophils # (Auto) 5.0, Lymphocytes # (Auto) 1.0, Monocytes # (Auto) 0.9, Eosinophils # (Auto) 0.1, Basophils # (Auto) 0.0, Prothrombin Time 16.1H, INR Comment 1.2, Activated Partial Thromboplast Time 38H, Sodium Level 134L, Potassium Level 4.4, Chloride Level 98, Carbon Dioxide Level 28, Anion Gap 8, Blood Urea Nitrogen 47H, Creatinine 2.44H, Estimat Glomerular Filtration Rate 27, BUN/Creatinine Ratio 19, Glucose Level 177H, Calcium Level 8.6, Corrected Calcium 9.3, Magnesium Level 1.9, Total Bilirubin 1.0, Aspartate Amino Transf (AST/SGOT) 26, Alanine Aminotransferase (ALT/SGPT) 20, Alkaline Phosphatase 553H , B-Type Natriuretic Peptide 435.3H, Total Protein 7.5, Albumin 3.1L, Thyroid Stimulating Hormone (TSH) 15.75H, Free Thyroxine 0.86 08/08/19 13:10: Urine Color YELLOW, Urine Clarity CLEAR, Urine pH 6.0, Urine Specific [place] 1.015L, Urine Protein 1+H, Urine Glucose (UA) NEGATIVE, Urine Ketones NEGATIVE, Urine Nitrite NEGATIVE, Urine Bilirubin NEGATIVE, Urine Urobilinogen 1.0, Urine Leukocyte Esterase NEGATIVE, Urine RBC (Auto) NEGATIVE, Urine RBC NONE, Urine WBC RARE, Urine Squamous Epithelial Cells NONE, Urine Crystals NONE, Urine Bacteria NEGATIVE, Urine Casts NONE, Urine Mucus NEGATIVE, Urine Culture Indicated NO A/P-Cardiology Assessment/Admission Diagnosis Acute on chronic systolic/diastolic CHF WENCESLAO - 2 on CKD stage 3 Echo of 10/29/18: LVEF 30-35%, AoV scl w/o stenoses, PASP 25 mmHg. 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 Quit smoking in the 1980s DM II with diabetic nephropathy Hyperlipidemia, by history Chronic back pain Chronic leg swelling, likely related to venous insuff Symptoms of claudication, but seg pressures of 09/01/17 did not show any significant obstructive disease of the legs Discussion and Recomendations Diuretics as needed and as tolerated Monitor lab closely Continue home medications Echocardiogram Replace electrolytes as indicated TSH suggestive of hypothyroidism - management per Medical services Further recs will be based on his hospital course We would like to thank Medical services for this consult Clinical Quality Measures DVT/VTE Risk/Contraindication: Risk Factor Score Per Nursin RFS Level Per Nursing on Admit: 4+=Very High LANCE TAPIA MD FACP FACC CCDS Aug 08, 2019 19:46
[2019-08-08] MEDS: GABAPENTIN 100 MG (NEURONTIN) CAP PO SCH (19:51)
[2019-08-08] MEDS: ASPIRIN E.C. 81 MG (ECOTRIN) TAB PO SCH (19:51)
[2019-08-08] MEDS: SIMvastatin 10 MG (ZOCOR) TAB PO SCH (19:51)
[2019-08-08] MEDS ORDERED: RT-ALBUTEROL/IPRATROPIUM 3 ML (DUONEB) VIAL INH PRN (20:00)
--- NOTE | 2019-08-08 21:27 | NUR ---
PT. REFUSED TO TAKE LEVEMIR SUBSTITUTE FROM OUR STOCK [facility]. PT TOOK OWN HOME MED LANTUS 70 UNITS SQ.
[2019-08-08 23:49] VITALS: BP 123/83
[2019-08-09] MEDS: HYDROcodone/APAP 5 MG/325 MG (LORTAB) TAB PO PRN ×3 (01:49→20:01)
[2019-08-09] MEDS: RT-ALBUTEROL/IPRATROPIUM 3 ML (DUONEB) VIAL INH SCH ×2 (02:45→08:06)
[2019-08-09 03:23] VITALS: BP 142/94
[2019-08-09] MEDS: ENOXAPARIN 60 MG/0.6 ML (LOVENOX) SYR SC SCH ×2 (05:49→18:00)
[2019-08-09] MEDS: LEVOTHYROXINE 100 MCG (LEVOTHROID) TAB PO SCH (05:49)
[2019-08-09 07:53] VITALS: BP 96/62
--- NOTE | 2019-08-09 08:06 | Progress Note - Hospitalist ---
[facility] 08/09/19 0806: Subjective HPI/CC On Admission Date Seen by Provider: Aug 09, 2019 Time Seen by Provider: 08:00 CC: 'Leaking fluid from my legs' Mr. Sanders elina 64 WM that is presenting today because of Acute on Chronic Heart Failure and edema. He states that this started about 1 week ago, but has significantly worsened the past 2 days. He has attempted to control this most recent exacerbation with his furosemide, taking 80 mg po the past few mornings. He states that the fluid overload gets better toward the evenings, but is back to his current state in the morning. He denies changing his water intake. He states that his is adhering to his heart failure diet, taking all of his prescribed medications and has no illness prior to this exacerbation. He states that over the past month, he has been dealing with and attempting to treat cellulitis of both LE. He does confirm an increase in SOB and worsening dyspnea upon exertion. His history is significant for Diastolic Heart Failure, HTN, T2DM, HLP, Hypothyroidism, and multiple TIA. Subjective/Events-last exam Patient reports feeling much better. He was able to sleep well without back pain or difficulty breathing. Patient states that he is able to ambulate without exertional dyspnea. Patient is reporting constipation, no issues eating and drink, only sipping on ice water. He state that he is able to move his toes and feels like he is less overloaded. Patient doesn't report back pain or adrian catheter pain. Patients only complaint is cough, which he reports is from all the breathing treatments he has been receiving, would like a lasagne for his throat. Denies any productive cough. No further complaints by the patient. Focused Exam Respiratory: Chest Non Tender, No Accessory Muscle Use, No Respiratory Distress Cardiovascular: Regular Rate, Rhythm, No Edema, No Gallop, No JVD, No Murmur, Normal Peripheral Pulses Peripheral Pulses: 2+ Dorsalis Pedis (R), 2+ Left Dors-Pedis (L), 2+ Radial Pulses (R), 2+ Radial Pulses (L) Skin: normal color, warm/dry Objective Exam Vital Signs Vital Signs Date Time Temp Pulse Resp B/P (MAP) Pulse Ox O2 Delivery O2 Flow Rate FiO2 08/09/19 07:53 36.2 83 18 96/62 (73) 96 Room Air 08/09/19 03:23 3.00 08/08/19 16:07 32 Capillary Refill : Less Than 3 Seconds General Appearance: No Apparent Distress, WD/WN HEENT: Pharynx Normal, Moist Mucous Membranes Respiratory: Chest Non Tender, No Accessory Muscle Use, No Respiratory Distress Cardiovascular: Regular Rate, Rhythm, No Edema, No Gallop, No JVD, No Murmur, Normal Peripheral Pulses Gastrointestinal: Normal Bowel Sounds, No Pulsatile Mass, Non Tender Extremity: Pedal Edema, Swelling Neurologic/Psychiatric: Alert, Oriented x3, No Motor/Sensory Deficits, Normal 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 Imaging: Reviewed Imaging Films, Reviewed Imaging Report Assessment/Plan Assessment and Plan Assess & Plan/Chief Complaint Acute on Chronic HF: - Furosemide - 80 mg IV - Continue Metropolol as prescribed - < 2g Na diet - Fluid Restriction - Echocardiogram to assess heart function - Maintain NIO2: stats > 90 - Vitals q6h Hypothyroidism: - Continue current dose of Synthroid DM- Insulin Dependent: - Continue Lantus QD + Novalog TID - Hold Metformin Pulmonary: COPD - MAT protocol - Hold breathing treatment for now HTN: - Continue Metropolol RORY: - Continue to uses home CPAP DVT prophylaxis: - Continue 81 mg PO Aspirin QD - Lovenox BID 40 mg - AntiXa lab for therapeutic level GERD: - Continue Omeprazole OA + Degenerative Disk Disease: - Hydrocodone 5 mg/325 mg PRN Q6h Constipation: - Senna if doesn't improve by this afternoon. Clinical Quality Measures DVT/VTE Risk/Contraindication: Risk Factor Score Per Nursin RFS Level Per Nursing on Admit: 4+=Very High DEBI SORENSON MD 08/09/19 1510: Assessment/Plan Assessment and Plan Assess & Plan/Chief Complaint Pt reports doing better today. Breathing much improved and edema down. Echo revealed EF of 30%. Creatinine stable with diuresis. Has new onset hematuria. Will DC adrian and hold Lovenox due to hematuria. If continues will consider Urology consult. 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 Diagnosis/Problems Diagnosis/Problems (1) Acute on chronic congestive heart failure Status: Acute Qualifiers: Qualified Codes: I50.9 - Heart failure, unspecified (2) Acute renal failure Status: Acute Qualifiers: Qualified Codes: N17.9 - Acute kidney failure, unspecified (3) Debility Status: Acute (4) Fluid overload Status: Acute Qualifiers: Qualified Codes: E87.70 - Fluid overload, unspecified (5) Morbid obesity Status: Acute Supervisory-Addendum Brief Verification & Attestation Participated in pt care: history, MDM, physical Personally performed: exam, history, MDM, supervision of care Care discussed with: Medical Student Procedures: n/a Results interpretation: Verified all documentation Verification and Attestation of Medical Student E/M Service A medical student performed and documented this service in my presence. I reviewed and verified all information documented by the medical student and made modifications to such information, when appropriate. I personally performed the physical exam and medical decision making. Debi Sorenson, Aug 09, 2019,15:10 [facility] Aug 09, 2019 08:06 DEBI SORENSON MD Aug 09, 2019 15:10
[2019-08-09 08:25] LABS: HEMOGLOBIN 11.9 G/DL (13.3-17.7); MEAN PLATELET VOLUME 10.1 FL (7.4-10.4); RED CELL DISTRIBUTION WIDTH 16.1 % (10.0-14.5); WHITE BLOOD COUNT 7.8 10^3/uL (4.3-11.0)
[2019-08-09 08:41] LABS: CREATININE SERUM 2.41 MG/DL (0.60-1.30); MAGNESIUM 1.9 MG/DL (1.6-2.4); POTASSIUM 4.7 MMOL/L (3.6-5.0)
[2019-08-09] MEDS: GABAPENTIN 100 MG (NEURONTIN) CAP PO SCH ×2 (09:05→20:00)
[2019-08-09] MEDS: FUROSEMIDE 40 MG/4 ML INJ (LASIX) IVP SCH (09:05)
[2019-08-09] MEDS: meTOprolol SUCCINATE 100 MG (TOPROL XL) TAB PO SCH (09:05)
[2019-08-09] MEDS: inSUlin ASPART (NovoLOG) 1 UNIT/0.01 ML (CHARGE PER UNIT) SC SCH ×2 (09:05→12:16)
[2019-08-09] MEDS: PANTOPRAZOLE 20 MG TABLET (PROTONIX) PO SCH (09:05)
--- NOTE | 2019-08-09 10:28 | Physical Therapy Evaluation ---
PT Evaluation-General Medical Diagnosis Admission Date Aug 08, 2019 at 14:06 Medical Diagnosis: fluid overload/ARF/CHF Onset Date: Aug 08, 2019 Therapy Diagnosis Therapy Diagnosis: debility/weakness Height/Weight Height (Feet): 6 Height (Inches): 2.00 Weight (Pounds): 371 Weight (Ounces): 1.0 Precautions Precautions/Isolations: Fall Prevention, Standard Precautions Weight Bear Status Right Lower Extremity: Right Full Weight Bearing Left Lower Extremity: Left Full Weight Bearing Referral Physician: Delta Reason for Referral: Evaluation/Treatment Medical History Pertinent Medical History: CAD, DM, Heart Failure, HTN, SC, Neuropathy, Renal Insufficiency Additional Medical History morbid obesity Current History EMS secondary to progressive edema, SOA and inability to ambulate Reviewed History: Yes Social History Home: Single Level Current Living Status: Spouse Entry Into Home: Level Entry Prior Prior Level of Function SCALE: Activities may be completed with or without assistive devices. 3-Mgvbgwdeln-vaogldm completes the activity by him/herself with no assistance from a helper. 5-Set-up or Clean-up Assistance-helper sets up or cleans up; patient completes activity. [place] assists only prior to or following the activity. 4-Supervision or Touching Assistance-helper provides verbal cues and/or touching/steadying and/or contact guard assistance as patient completes activity. Assistance may be provided throughout the activity or intermittently. 3-Partial/Moderate Assistance-helper does LESS THAN HALF the effort. [place] lifts, holds or supports trunk or limbs, but provides less than half the effort. 2-Substantial/Maximal Assistance-helper does MORE THAN HALF the effort. [place] lifts or holds trunk or limbs and provides more than half the effort. 2-Mcpvfcxgk-ypuryg does ALL the effort. Patient does none of the effort to complete the activity. Or, the assistance of 2 or more helpers is required for the patient to complete the activity. If activity was not attempted, code reason: 7-Patient Refused. 9-Not Applicable-not attempted and the patient did not perform the activity before the current illness, exacerbation or injury. 10-Not Attempted due to Environmental Limitations-(lack of equipment, weather restraints, etc.). 88-Not Attempted due to Medical Conditions or Safety Concerns. Bed Mobility: 5 Transfers (B,C,W/C): 5 Gait: 5 Stairs: 9 Indoor Mobility (Ambulation): Needed Some Help (set up only for AD) ambulates short distances only in home with a cane PT Evaluation-Current Subjective Patient and spouse report spouse assist with all ADL's and bed mobility/transfers PLOF. Pain Numeric Pain Scale: 0-No Pain Location: No Pain Reported Objective Patient Orientation: Normal For Age Attachments: [place] Catheter ROM/Strength ROM Lower Extremities bilateral limited due to morbid obesity. Strength Lower Extremities 4/5 grossly bilateral LE Integumentary/Posture Integumentary refer to nursing notes Bladder Incontinence: [place] Cath Posture WFL Neuromuscular (Tone, Coordination, Reflexes) grossly intact Sensory Vision: Functional Hearing: Functional Sensation Right Lower Extremit: Impaired Sensation Left Lower Extremity: Impaired Transfers Roll Left to Right (QC): 5 Sit to Lying (QC): 5 Lying to Sitting/Side of Bed(Q: 5 Sit to Stand (QC): 5 Gait Does the Patient Walk?: Yes Mode of Locomotion: Both Anticipated Mode of Locomotion: Both Walk 10 feet (QC): 5 Distance: 30' Gait Assistive Device: FWW Comments/Gait Description safe and functional with FWW Balance Sitting Static: Normal Sitting Dynamic: Normal Standing Static: Good Standing Dynamic: Good Assessment/Needs 64 y.o. male, will be seen short term by skilled PT to address functional mobility. From a PT standpoint, patient would benefit from a bariatric FWW for home use for stability. SW notified. Rehab Potential: Fair PT Jewel Inserter Goals Jewel Inserter Goals PT Custodial Goals Time Frame: Aug 17, 2019 Roll Left & Right (QC): 5 Sit to Lying (QC): 5 Lying-Sitting on Side/Bed(QC): 5 Sit to Stand (QC): 5 Chair/Zsb-gk-Ccgqk Xfer(QC): 5 Toilet Transfer (QC): 5 Does the Patient Walk: Yes Walk 10 feet (QC): 5 Walk 50ft with 2 Turns (QC): 5 Walk 150 ft (QC): 9 PT Plan Problem List Problem List: Activity Tolerance Treatment/Plan Treatment Plan: Continue Plan of Care Treatment Plan: Bed Mobility, Education, Functional Activity Jonathan, Functional Strength, Gait, Safety, Therapeutic Exercise, Transfers Treatment Duration: Aug 17, 2019 Frequency: 5 times per week Estimated Hrs Per Day: .25 hour per day Patient and/or Family Agrees t: Yes Time/GCodes Time In: 945 Time Out: 1000 Total Billed Treatment Time: 15 Total Billed Treatment 1 visit EVModC 15 min JOSE WALL PT Aug 09, 2019 10:28
--- NOTE | 2019-08-09 10:34 | Progress Note - Cardiology ---
Cardiology SOAP Progress Note Subjective: Sitting up in bed; spouse at the bedside. States he feels his breathing is much better today. Feels LE swelling is much better today. No c/o CP, palpitations. Gen weakness which he feels is improving. Objective: I&O/Vital Signs 08/08/19 08/09/19 08/09/19 08/09/19 23:49 01:00 03:23 07:00 Temp 36.2 36.0 Pulse 94 87 88 85 Resp 20 20 B/P (MAP) 123/83 (96) 142/94 (110) Pulse Ox 93 96 O2 Delivery NIV CPAP NIV CPAP O2 Flow Rate 3.00 08/09/19 07:53 Temp 36.2 Pulse 83 Resp 18 B/P (MAP) 96/62 (73) Pulse Ox 96 O2 Delivery Room Air 08/09/19 00:00 Intake Total 340 ml Output Total 1450 ml Balance -1110 ml Weight (Pounds): 371 Weight (Ounces): 1.0 Weight (Calculated Kilograms): 168.984556 Constitutional: AAO x 3, other (morbidly obese) Respiratory: No accessory muscle use, No respiratory distress; chest expansion is symmetric, chest is bilaterally symmetric, other (good air entry) Cardiovascular: regular rate-rhythm; No JVD; S1 and S2 Gastrointestional: distended, audible bowel sounds Genital/Rectal: other (indwelling urinary catheter to DD with clear; hematuria) Extremities: other (Bilat pitting edema - improved) Neurologic/Psychiatric: grossly intact (moves extremieties) Skin: normal color, warm/dry, other (dressings to LE bilat, not removed. ) Results/Procedures: Labs Laboratory Tests 08/08/19 12:50: White Blood Count 7.0, Red Blood Count 4.58, Hemoglobin 11.6L, Hematocrit 40, Mean Corpuscular Volume 87, Mean Corpuscular Hemoglobin 25, Mean Corpuscular Hemoglobin Concent 29L, Red Cell Distribution Width 15.7H, Platelet Count 308, Mean Platelet Volume 10.3, Neutrophils (%) (Auto) 72, Lymphocytes (%) (Auto) 14, Monocytes (%) (Auto) 12, Eosinophils (%) (Auto) 2, Basophils (%) (Auto) 0, Neutrophils # (Auto) 5.0, Lymphocytes # (Auto) 1.0, Monocytes # (Auto) 0.9, Eosinophils # (Auto) 0.1, Basophils # (Auto) 0.0, Prothrombin Time 16.1H, INR Comment 1.2, Activated Partial Thromboplast Time 38H, Sodium Level 134L, Potassium Level 4.4, Chloride Level 98, Carbon Dioxide Level 28, Anion Gap 8, Blood Urea Nitrogen 47H, Creatinine 2.44H, Estimat Glomerular Filtration Rate 27, BUN/Creatinine Ratio 19, Glucose Level 177H, Calcium Level 8.6, Corrected Calcium 9.3, Magnesium Level 1.9, Total Bilirubin 1.0, Aspartate Amino Transf (AST/SGOT) 26, Alanine Aminotransferase (ALT/SGPT) 20, Alkaline Phosphatase 553H , B-Type Natriuretic Peptide 435.3H, Total Protein 7.5, Albumin 3.1L, Thyroid Stimulating Hormone (TSH) 15.75H, Free Thyroxine 0.86 08/08/19 13:10: Urine Color YELLOW, Urine Clarity CLEAR, Urine pH 6.0, Urine Specific [place] 1.015L, Urine Protein 1+H, Urine Glucose (UA) NEGATIVE, Urine Ketones NEGATIVE, Urine Nitrite NEGATIVE, Urine Bilirubin NEGATIVE, Urine Urobilinogen 1.0, Urine Leukocyte Esterase NEGATIVE, Urine RBC (Auto) NEGATIVE, Urine RBC NONE, Urine WBC RARE, Urine Squamous Epithelial Cells NONE, Urine Crystals NONE, Urine Bacteria NEGATIVE, Urine Casts NONE, Urine Mucus NEGATIVE, Urine Culture Indicated NO 08/08/19 20:33: Glucometer 141H 08/09/19 05:33: Glucometer 152H 08/09/19 08:21: White Blood Count 7.8, Red Blood Count 4.67, Hemoglobin 11.9L, Hematocrit 41, Mean Corpuscular Volume 88, Mean Corpuscular Hemoglobin 25, Mean Corpuscular Hemoglobin Concent 29L, Red Cell Distribution Width 16.1H, Platelet Count 309, Mean Platelet Volume 10.1, Sodium Level 136, Potassium Level 4.7, Chloride Level 100, Carbon Dioxide Level 25, Anion Gap 11, Blood Urea Nitrogen 46H, Creatinine 2.41H, Estimat Glomerular Filtration Rate 27, BUN/Creatinine Ratio 19, Glucose Level 146H, Calcium Level 9.0, Magnesium Level 1.9 Laboratory Tests 08/08/19 12:50 08/09/19 08:21 A/P: Assessment: Acute on chronic systolic/diastolic CHF - clinically improving WENCESLAO - 2 on CKD stage 3 Hematuria of undetermined etiology Echo of 10/29/18: LVEF 30-35%, AoV scl w/o stenoses, PASP 25 mmHg. Most recent echo of Mar 29, 2019 showed LVEF 45-50% with grade 1 diastolic dysfunction. Echo of 08-08-2019 showed LVEF 30-35%, concentric hypertrophy, PASP 35 mmHg. 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 Quit smoking in the 1980s DM II with diabetic nephropathy Hyperlipidemia, by history Chronic back pain Chronic leg swelling, likely related to venous insuff Symptoms of claudication, but seg pressures of 09/01/17 did not show any significant obstructive disease of the legs Plan: Continue diuretics as needed and as tolerated Hematuria of undetermined etiology - consider urology consult Renal function essentially unchanged Echocardiogram reviewed showing decreased LVEF - not a suitable candidate for A CE/ARB d/t renal insufficiency which has worsened in the past with these agents Replace electrolytes as indicated TSH suggestive of hypothyroidism - management per Medical services MOLLY APPLE Aug 09, 2019 10:34
--- NOTE | 2019-08-09 11:36 | NUR ---
Discussed with the patient about hospital supply of medications, patient is ok to use hospital supply (including insulin).
[2019-08-09 12:00] VITALS: BP 102/66
--- NOTE | 2019-08-09 12:23 | NUR ---
CN/SS: Visited with pt as to plan for discharge DME: Physical therapy reports pt will need a Bariatric walker, Pt reports that he will need a shower seat, and a stool riser. Plan: Pt plans to return home when appropriate. Pt is educated on some of the items that he is requesting are not covered by Medicare, and items may have an out of pocket cost. He feels as if Medicare should pay for the items. This is explained to pt. Pt has reported he is ok to use [facility] for his equipment. Pt plans to return home when appropriate. Pt will be provided the list of the items and the approximate cost associated with each item. Looks as if pt will remain here over the weekend and discharge on early next week.
--- NOTE | 2019-08-09 14:45 | NUR ---
"RD ASSESSMENT PMHx: CAD; OR; HTN; TIA; GERD; DM; stroke; renal failure; hypercholesterolemia; PT INTERACTION: Pt was awake and pleasant during nutrition assessment. Pt states current appetite is okay and has been for some time. Note PO intake of 25% x1meal, per chart review. Pt states following a low-CHO diet at home, and has no issues with chewing/swallowing food. Pt states on recent issues with nausea/vomiting at this time. Pt states some issues with constipation, and that his last BM was 08/08. Pt states recent wt gain but unsure of amount. Pt attributes wt gain to fluid buildup. Note chart review of 101# wt gain x2mon. This RD is unsure if this is accurate measurement of wt gain. Pt states current DM control is pretty good, with his average blood glucose levels between 70-140. Note unable to determine recent HbA1c, per chart review. Note pt has wounds present on bilateral lower extremities, per visual exam. ABNORMAL NUTRITION-RELATED LAB VALUES LOW: HIGH: BUN 46; cr 2.41; glu 146 Est. kcal needs: 5655-4448 kcal | 25-30 kcal/kg IBW, based on IBW of 86.4 kg Est. Pro needs: 104-130 g Pro | 1.2-1.5 g Pro/kg IBW, based on IBW of 86.4 kg PES STATEMENT: Inadequate oral intake (NI-2.1) related to loss of appetite as evidenced by pt interview Inadequate protein intake (NI-5.6.1) related to increased protein needs as evidenced by presence of wounds (bilateral lower extremities) INTERVENTION: Continue with current diet of CHO 75g/m 0snack diet. Add Ensure HP (vary) to meals TID. Provides 160 kcal and 16 g Pro per serving for perceived benefit to wound healing. Will continue to follow and reassess as pt needs and status change. MONITOR/EVALUATE: PO Intake; Plan of Care; Hydration Status; Weight Status; Lab Values Cliff Oliveira, MS, RD, LD"
--- NOTE | 2019-08-09 16:56 | Progress Note - Cardiology ---
Cardiology SOAP Progress Note Subjective: Feels less swollen and less short of breath than yesterday Notes gen malaise Denies cp or palp or syncope Denies n/v/d Objective: I&O/Vital Signs 08/09/19 08/09/19 08/09/19 08/09/19 07:00 07:53 08:00 12:00 Temp 36.2 36.4 Pulse 85 83 95 Resp 18 20 B/P (MAP) 96/62 (73) 102/66 (78) Pulse Ox 96 96 O2 Delivery Room Air Nasal Cannula Room Air O2 Flow Rate 3.00 08/09/19 12:44 Pulse 95 08/09/19 00:00 Intake Total 340 ml Output Total 1450 ml Balance -1110 ml Weight (Pounds): 371 Weight (Ounces): 1.0 Weight (Calculated Kilograms): [id number] Constitutional: AAO x 3, other (morbidly obese) Respiratory: No accessory muscle use, No respiratory distress; chest expansion is symmetric, chest is bilaterally symmetric, other (good air entry) Cardiovascular: regular rate-rhythm; No JVD; S1 and S2 Gastrointestional: distended, audible bowel sounds Genital/Rectal: other (indwelling urinary catheter to DD with clear; hematuria) Extremities: other (Bilat pitting edema - improved) Neurologic/Psychiatric: grossly intact (moves extremieties) Skin: normal color, warm/dry, other (dressings to LE bilat, not removed. ) Results/Procedures: Labs Laboratory Tests 08/08/19 20:33: Glucometer 141H 08/09/19 05:33: Glucometer 152H 08/09/19 08:21: White Blood Count 7.8, Red Blood Count 4.67, Hemoglobin 11.9L, Hematocrit 41, Mean Corpuscular Volume 88, Mean Corpuscular Hemoglobin 25, Mean Corpuscular Hemoglobin Concent 29L, Red Cell Distribution Width 16.1H, Platelet Count 309, Mean Platelet Volume 10.1, Sodium Level 136, Potassium Level 4.7, Chloride Level 100, Carbon Dioxide Level 25, Anion Gap 11, Blood Urea Nitrogen 46H, Creatinine 2.41H, Estimat Glomerular Filtration Rate 27, BUN/Creatinine Ratio 19, Glucose Level 146H, Calcium Level 9.0, Magnesium Level 1.9 08/09/19 10:43: Glucometer 166H 08/09/19 15:25: Glucometer 149H Laboratory Tests 08/08/19 12:50 08/09/19 08:21 A/P: Assessment: Acute on chronic systolic/diastolic CHF - clinically improving WENCESLAO - 2 on CKD - 3 Hematuria of undetermined etiology Echo of 10/29/18: LVEF 30-35%, AoV scl w/o stenoses, PASP 25 mmHg. Most recent echo of Mar 29, 2019 showed LVEF 45-50% with grade 1 diastolic dysfunction. Echo of 08-08-2019 showed LVEF 30-35%, concentric hypertrophy, PASP 35 mmHg. 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 Quit smoking in the 1980s DM II with diabetic nephropathy Hyperlipidemia, by history Chronic back pain Chronic leg swelling, likely related to venous insuff Symptoms of claudication, but seg pressures of 09/01/17 did not show any significant obstructive disease of the legs Plan: Continue diuretics as needed and as tolerated Hematuria of undetermined etiology - consider urology consult Renal function essentially unchanged Echocardiogram reviewed showing decreased LVEF - not a suitable candidate for CYRUS/ARB d/t renal insufficiency which has worsened in the past with these agents Replace electrolytes as indicated TSH suggestive of hypothyroidism - management per Medical services Dr Geronimo covering Card svce over the weekend LANCE TAPIA MD FACP FAC CCDS Aug 09, 2019 16:56
[2019-08-09 16:58] VITALS: BP 121/80
[2019-08-09 19:47] VITALS: BP 118/73
[2019-08-09] MEDS: SIMvastatin 10 MG (ZOCOR) TAB PO SCH (19:59)
[2019-08-09] MEDS: ASPIRIN E.C. 81 MG (ECOTRIN) TAB PO SCH (20:00)
[2019-08-10] VITALS: BP 123/60
[2019-08-10 04:00] VITALS: BP 130/69
[2019-08-10] MEDS: ENOXAPARIN 60 MG/0.6 ML (LOVENOX) SYR SC SCH ×2 (05:22→19:46)
[2019-08-10] MEDS: LEVOTHYROXINE 100 MCG (LEVOTHROID) TAB PO SCH (05:23)
[2019-08-10 05:41] LABS: HEMOGLOBIN 11.8 G/DL (13.3-17.7); MEAN PLATELET VOLUME 9.8 FL (7.4-10.4); WHITE BLOOD COUNT 7.1 10^3/uL (4.3-11.0)
[2019-08-10 06:06] LABS: CALCIUM 8.9 MG/DL (8.5-10.1); CREATININE SERUM 2.31 MG/DL (0.60-1.30); POTASSIUM 4.5 MMOL/L (3.6-5.0)
[2019-08-10] MEDS: inSUlin ASPART (NovoLOG) 1 UNIT/0.01 ML (CHARGE PER UNIT) SC SCH ×2 (07:56→12:28)
[2019-08-10] MEDS: PANTOPRAZOLE 20 MG TABLET (PROTONIX) PO SCH (07:56)
[2019-08-10] MEDS: GABAPENTIN 100 MG (NEURONTIN) CAP PO SCH ×2 (07:56→20:39)
[2019-08-10] MEDS: FUROSEMIDE 40 MG/4 ML INJ (LASIX) IVP SCH (07:56)
[2019-08-10] MEDS: meTOprolol SUCCINATE 100 MG (TOPROL XL) TAB PO SCH (07:56)
[2019-08-10 08:00] VITALS: BP 137/78
--- NOTE | 2019-08-10 09:02 | Progress Note - Hospitalist ---
[facility] 08/10/19 0902: Subjective HPI/CC On Admission Date Seen by Provider: Aug 10, 2019 Time Seen by Provider: 08:57 CC: 'Leaking fluid from my legs' Mr. Sanders elina 64 WM that is presenting today because of Acute on Chronic Heart Failure and edema. He states that this started about 1 week ago, but has significantly worsened the past 2 days. He has attempted to control this most recent exacerbation with his furosemide, taking 80 mg po the past few mornings. He states that the fluid overload gets better toward the evenings, but is back to his current state in the morning. He denies changing his water intake. He states that his is adhering to his heart failure diet, taking all of his prescribed medications and has no illness prior to this exacerbation. He states that over the past month, he has been dealing with and attempting to treat cellulitis of both LE. He does confirm an increase in SOB and worsening dyspnea upon exertion. His history is significant for Diastolic Heart Failure, HTN, T2DM, HLP, Hypothyroidism, and multiple TIA. Subjective/Events-last exam Mr. Sanders was cooperative and pleasant this morning. He was sitting upright in no distress. He did report some trouble sleep last night and having an episode of increased SOB and difficulty breathing, for which he received a breathing treatment. He states that he had a bowel movement yesterday with ease, still has some pain with catheter placement which is kept under control with Hydrocodone PRN. He states that he would like the catheter to be kept in place because it would cause discomfort in his back and require aid from the nurse quite often. He denies having continued SOB, Chest pain, chest tightness. He states that he feels his fluid overloaded state is progressing appropriately and is able to ambulate easier because of it. He has no further complaints or concerns at this time. Review of Systems General: No Chills, No Night Sweats, No Fatigue, No Malaise, No Appetite, No Other HEENT: No Head Aches, No Visual Changes, No Eye Pain, No Ear Pain, No Dysphasia, No Sinus Congestion, No Post Nasal Drip, No Sore Throat, No Other Pulmonary: No Dyspnea, No Cough, No Pleuritic Chest Pain, No Other Cardiovascular: Edema; No: Chest Pain, Palpitations, Orthopnea, Paroxysmal Noc. Dyspnea, Lt Headedness, Other Gastrointestinal: No: Nausea, Vomiting, Abdominal Pain, Diarrhea, Constipation, Melena, Hematochezia, Other Genitourinary: Dysuria (associate with catheter placement.); No Frequency, No Incontinence, No Hematuria, No Retention, No Other Musculoskeletal: back pain, leg pain; No: other, neck pain, shoulder pain, arm pain, hand pain, foot pain Neurological: No: Weakness, Numbness, Incoordination, Change in speech, Confusion, Seizures, Other Focused Exam Respiratory: Chest Non Tender, Lungs Clear, Normal Breath Sounds, No Accessory Muscle Use, No Respiratory Distress Cardiovascular: Regular Rate, Rhythm, No Edema, No Gallop, No JVD, No Murmur, Normal Peripheral Pulses Peripheral Pulses: 2+ Dorsalis Pedis (R), 2+ Left Dors-Pedis (L), 2+ Radial Pulses (R), 2+ Radial Pulses (L) Skin: normal color, warm/dry Objective Exam Vital Signs Vital Signs Date Time Temp Pulse Resp B/P (MAP) Pulse Ox O2 Delivery O2 Flow Rate FiO2 08/10/19 08:00 36.2 96 24 137/78 (97) 91 Nasal Cannula 3.00 08/08/19 16:07 32 Capillary Refill : Less Than 3 Seconds General Appearance: No Apparent Distress, WD/WN Respiratory: Chest Non Tender, Lungs Clear, Normal Breath Sounds, No Accessory Muscle Use, No Respiratory Distress Cardiovascular: Regular Rate, Rhythm, No Edema, No Gallop, No JVD, No Murmur, Normal Peripheral Pulses Gastrointestinal: Normal Bowel Sounds, No Pulsatile Mass, Non Tender, Other (Swelling around the abdomin is reduced signifantly ) Extremity: Pedal Edema, Swelling (improving ) Neurologic/Psychiatric: Alert, Oriented x3, No Motor/Sensory Deficits, Normal 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 Imaging: Reviewed Imaging Films, Reviewed Imaging Report Assessment/Plan Assessment and Plan Assess & Plan/Chief Complaint Acute on Chronic HF: - Furosemide - 80 mg IV - Continue Metropolol as prescribed - < 2g Na diet - Fluid Restriction - Echocardiogram to assess heart function - Maintain NIO2: stats > 90, breathing treatments PRN - Vitals q6h - Consider switching catheter to [place] Hypothyroidism: - Continue current dose of Synthroid DM- Insulin Dependent: - Continue Lantus QD + Novalog TID - Hold Metformin Pulmonary: COPD - MAT protocol - Upon patient request HTN: - Continue Metropolol RORY: - Continue to uses home CPAP DVT prophylaxis: - Continue 81 mg PO Aspirin QD - Lovenox BID 40 mg GERD: - Continue Omeprazole OA + Degenerative Disk Disease: - Hydrocodone 5 mg/325 mg PRN Q6h Clinical Quality Measures DVT/VTE Risk/Contraindication: Risk Factor Score Per Nursin RFS Level Per Nursing on Admit: 4+=Very High DEBI SORENSON MD 08/10/19 1307: Assessment/Plan Assessment and Plan Assess & Plan/Chief Complaint Pt continues to subjectively improve. He states breathing is improved today despite being back on oxygen. Discussed need for adrian to be discontinued and he is refusing at this time. Discussed risks of infection associated with catheter and he still refuses removal. Will continue Lasix, if still minimal diuresis tomorrow will switch to Bumex. Lovenox held for hematuria. Diamond Sizer consulted for assistance with discharge planning. Supervisory-Addendum Brief Verification & Attestation Participated in pt care: history, MDM, physical Personally performed: exam, history, MDM, supervision of care Care discussed with: Medical Student Procedures: n/a Results interpretation: Verified all documentation Verification and Attestation of Medical Student E/M Service A medical student performed and documented this service in my presence. I reviewed and verified all information documented by the medical student and made modifications to such information, when appropriate. I personally performed the physical exam and medical decision making. Debi Sorenson, Aug 10, 2019,13:07 [facility] Aug 10, 2019 09:02 DEBI SORENSON MD Aug 10, 2019 13:07
[2019-08-10] MEDS: HYDROcodone/APAP 5 MG/325 MG (LORTAB) TAB PO PRN (10:52)
[2019-08-10 11:26] VITALS: BP 127/71
--- NOTE | 2019-08-10 11:46 | Cardiology Progress Note ---
Subjective Date Seen by Provider: Aug 10, 2019 Time Seen by Provider: 11:43 Subjective/Events-last exam Patient is in bed, no new complaint, reporting improvement Review of Systems General: No Chills, No Night Sweats; Fatigue; No Malaise, No Appetite, No Other HEENT: No Head Aches, No Visual Changes, No Eye Pain, No Ear Pain, No Dysphasia, No Sinus Congestion, No Post Nasal Drip, No Sore Throat, No Other Pulmonary: Dyspnea; No Cough, No Pleuritic Chest Pain, No Other Cardiovascular: Edema; No: Chest Pain, Palpitations, Orthopnea, Paroxysmal Noc. Dyspnea, Lt Headedness, Other Objective-Cardiology Exam Last Set of Vital Signs Vital Signs 08/08/19 08/10/19 16:07 11:26 Temp 36.4 Pulse 85 Resp 20 B/P (MAP) 127/71 (89) Pulse Ox 96 O2 Delivery Nasal Cannula O2 Flow Rate 3.00 FiO2 32 Capillary Refill : Less Than 3 Seconds I&O Intake and Output 08/10/19 00:00 Intake Total 2240 ml Output Total 2150 ml Balance 90 ml Intake Oral 2240 ml Output Urine Total 2150 ml # Bowel Movements 1 General: Alert, Oriented X3, Cooperative HEENT: Atraumatic, PERRLA Neck: Supple, No JVD Heart: Regular Rate, Normal S1, Normal S2 Abdomen: Normal Bowel Sounds Skin: Other (Edema and erythema) Neuro: Normal Speech Psych/Mental Status: Mental Status NL Results Lab Laboratory Tests 08/10/19 05:32 A/P-Cardiology Admission Diagnosis Peripheral edema Congestive heart failure Acute renal failure Hypertension Assessment/Plan Peripheral edema, improving slowly, multifactorial. Continue on current treatment and continue to monitor Congestive heart failure, acute on chronic left ventricular systolic and diastolic dysfunction, ejection fraction 30-35 percent with left ventricular concentric hypertrophy, responding to diuretics. Acute on chronic kidney disease, acute renal failure, improving. Had a long discussion with the patient recommended nephrology evaluation and follow-up as an outpatient. Hypertension, continue on current medications and monitor blood pressure Diabetes mellitus, followed and managed by primary care physician. 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
[2019-08-10 16:45] VITALS: BP 108/72
[2019-08-10 19:17] VITALS: BP 117/75
[2019-08-10] MEDS: ASPIRIN E.C. 81 MG (ECOTRIN) TAB PO SCH (20:39)
[2019-08-10] MEDS: SIMvastatin 10 MG (ZOCOR) TAB PO SCH (20:39)
[2019-08-11] VITALS (7 sets, daily range): BP systolic 110–136; BP diastolic 64–79
[2019-08-11] MEDS: HYDROcodone/APAP 5 MG/325 MG (LORTAB) TAB PO PRN ×3 (02:47→23:54)
[2019-08-11] MEDS: ENOXAPARIN 60 MG/0.6 ML (LOVENOX) SYR SC SCH ×2 (06:15→17:12)
[2019-08-11] MEDS: LEVOTHYROXINE 100 MCG (LEVOTHROID) TAB PO SCH (06:16)
[2019-08-11 06:41] LABS: BUN/CREATININE RATIO 20; CALCIUM 9.8 MG/DL (8.5-10.1); CARBON DIOXIDE 20 MMOL/L (21-32); CHLORIDE 108 MMOL/L (98-107); CREATININE SERUM 0.91 MG/DL (0.60-1.30); GFR ESTIMATED > 60; GLUCOSE 94 MG/DL (70-105); POTASSIUM 4.5 MMOL/L (3.6-5.0); SODIUM 140 MMOL/L (135-145)
[2019-08-11 06:48] LABS: HEMOGLOBIN 11.5 G/DL (13.3-17.7); MEAN PLATELET VOLUME 9.8 FL (7.4-10.4); RED CELL DISTRIBUTION WIDTH 15.9 % (10.0-14.5)
[2019-08-11] MEDS: meTOprolol SUCCINATE 100 MG (TOPROL XL) TAB PO SCH (08:14)
[2019-08-11] MEDS: GABAPENTIN 100 MG (NEURONTIN) CAP PO SCH ×2 (08:14→20:41)
[2019-08-11] MEDS: FUROSEMIDE 40 MG/4 ML INJ (LASIX) IVP SCH (08:15)
[2019-08-11] MEDS: inSUlin ASPART (NovoLOG) 1 UNIT/0.01 ML (CHARGE PER UNIT) SC SCH ×2 (08:15→13:27)
[2019-08-11] MEDS: PANTOPRAZOLE 20 MG TABLET (PROTONIX) PO SCH (08:15)
--- NOTE | 2019-08-11 09:45 | Progress Note - Hospitalist ---
[facility] 08/11/19 0945: Subjective HPI/CC On Admission Date Seen by Provider: Aug 11, 2019 Time Seen by Provider: 09:38 CC: 'Leaking fluid from my legs' Mr. Sanders elina 64 WM that is presenting today because of Acute on Chronic Heart Failure and edema. He states that this started about 1 week ago, but has significantly worsened the past 2 days. He has attempted to control this most recent exacerbation with his furosemide, taking 80 mg po the past few mornings. He states that the fluid overload gets better toward the evenings, but is back to his current state in the morning. He denies changing his water intake. He states that his is adhering to his heart failure diet, taking all of his prescribed medications and has no illness prior to this exacerbation. He states that over the past month, he has been dealing with and attempting to treat cellulitis of both LE. He does confirm an increase in SOB and worsening dyspnea upon exertion. His history is significant for Diastolic Heart Failure, HTN, T2DM, HLP, Hypothyroidism, and multiple TIA. Subjective/Events-last exam Mr Sanders is stating major improvements with his overall fluid state, his belly and feet swelling are greatly reduced per him. He states that he hasn't had any breathing episodes, being able to maintain O2 saturation in the 90s with minimal supplementation. He reports no issues with urination, but states that he is constantly having the urge to go and increased volumes. He stated that the pain associated with that catheter was due to obstruction, once it was removed the irritation subsided. If the patient is unable to defecate, he will be willing to try Senna. He is hopeful to being discharged tomorrow. Patient has no more concerns and complaints at this time. Review of Systems General: No Chills, No Night Sweats, No Fatigue, No Malaise, No Appetite, No Ot her HEENT: No Head Aches, No Visual Changes, No Eye Pain, No Ear Pain, No Dysp hasia, No Sinus Congestion, No Post Nasal Drip, No Sore Throat, No Other Pulmonary: No Dyspnea, No Cough, No Pleuritic Chest Pain, No Other Cardiovascular: No: Chest Pain, Palpitations, Orthopnea, Paroxysmal Noc. Dyspnea, Edema, Lt Headedness, Other Gastrointestinal: Constipation; No: Nausea, Vomiting, Abdominal Pain, Diarrhea, Melena, Hematochezia, Other Genitourinary: No Dysuria, No Frequency, No Incontinence, No Hematuria, No Retention, No Other Musculoskeletal: No: other, neck pain, shoulder pain, arm pain, back pain, hand pain, leg pain, foot pain Neurological: No: Weakness, Numbness, Incoordination, Change in speech, Confusion, Seizures, Other Focused Exam Respiratory: Chest Non Tender, Lungs Clear, Normal Breath Sounds, No Accessory Muscle Use, No Respiratory Distress Cardiovascular: Regular Rate, Rhythm, No Edema, No Gallop, No JVD, No Murmur, Normal Peripheral Pulses Peripheral Pulses: 2+ Radial Pulses (R), 2+ Radial Pulses (L) Skin: normal color, warm/dry Objective Exam Vital Signs Vital Signs Date Time Temp Pulse Resp B/P (MAP) Pulse Ox O2 Delivery O2 Flow Rate FiO2 08/11/19 07:19 36.7 90 20 126/74 (91) 94 Nasal Cannula 3.00 08/08/19 16:07 32 Capillary Refill : Less Than 3 Seconds General Appearance: No Apparent Distress, WD/WN Respiratory: Chest Non Tender, Lungs Clear, Normal Breath Sounds, No Accessory Muscle Use, No Respiratory Distress Cardiovascular: Regular Rate, Rhythm, No Gallop, No JVD, No Murmur, Normal Peripheral Pulses Gastrointestinal: Normal Bowel Sounds, No Organomegaly, No Pulsatile Mass, Non Tender, Soft Extremity: Pedal Edema, Swelling Neurologic/Psychiatric: Alert, Oriented x3, No Motor/Sensory Deficits, Normal 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 Imaging: Reviewed Imaging Films, Reviewed Imaging Report Assessment/Plan Assessment and Plan Assess & Plan/Chief Complaint Acute on Chronic HF: - Furosemide - 80 mg IV - Continue Metropolol as prescribed - < 2g Na diet - Fluid Restriction - allow a little more freedom with fluid intake - Maintain NIO2: stats > 90, breathing treatments PRN - Vitals q6h Hypothyroidism: - Continue current dose of Synthroid DM- Insulin Dependent: - Continue Lantus QD + Novalog TID - Hold Metformin HTN: - Continue Metropolol RORY: - Continue to uses home CPAP DVT prophylaxis: - Continue 81 mg PO Aspirin QD - Lovenox BID 40 mg GERD: - Continue Omeprazole OA + Degenerative Disk Disease: - Hydrocodone 5 mg/325 mg PRN Q6h Constipation: - Senna if it persists Clinical Quality Measures DVT/VTE Risk/Contraindication: Risk Factor Score Per Nursin RFS Level Per Nursing on Admit: 4+=Very High DEBI SORENSON MD 08/11/19 1309: Assessment/Plan Assessment and Plan Assess & Plan/Chief Complaint Pt continues to do well. Clinically improving. WENCESLAO resolved. [place] catheter removed. Negative I/O yesterday. Weight recorded as up 10kg but this is inconsistent with clinical picture so likely error. Will continue current regimen May be ready to DC home tomorrow if continues to improve. Supervisory-Addendum Brief Verification & Attestation Participated in pt care: history, MDM, physical Personally performed: exam, history, MDM, supervision of care Care discussed with: Medical Student Procedures: n/a Results interpretation: Verified all documentation Verification and Attestation of Medical Student E/M Service A medical student performed and documented this service in my presence. I reviewed and verified all information documented by the medical student and made modifications to such information, when appropriate. I personally performed the physical exam and medical decision making. Debi Sorenson, Aug 11, 2019,13:07 [facility] Aug 11, 2019 09:45 DEBI SORENSON MD Aug 11, 2019 13:09
--- NOTE | 2019-08-11 10:16 | Cardiology Progress Note ---
Subjective Date Seen by Provider: Aug 11, 2019 Time Seen by Provider: 10:15 Subjective/Events-last exam Patient is in bed, feeling better, still having significant edema Review of Systems General: No Chills, No Night Sweats, No Fatigue, No Malaise, No Appetite, No Other HEENT: No Head Aches, No Visual Changes, No Eye Pain, No Ear Pain, No Dysphasia, No Sinus Congestion, No Post Nasal Drip, No Sore Throat, No Other Pulmonary: Dyspnea; No Cough, No Pleuritic Chest Pain, No Other Cardiovascular: Edema; No: Chest Pain, Palpitations, Orthopnea, Paroxysmal Noc. Dyspnea, Lt Headedness, Other Objective-Cardiology Exam Last Set of Vital Signs Vital Signs 08/08/19 08/11/19 08/11/19 16:07 07:19 10:09 Temp 36.7 Pulse 90 Resp 20 B/P (MAP) 126/74 (91) Pulse Ox 94 O2 Delivery Nasal Cannula O2 Flow Rate 3.00 FiO2 32 Capillary Refill : Less Than 3 Seconds I&O Intake and Output0 08/11/19 00:00 Intake Total 1050 ml Output Total 2450 ml Balance -1400 ml Intake Oral 1050 ml Output Urine Total 2450 ml General: Alert, Oriented X3, Cooperative HEENT: Atraumatic, PERRLA Neck: Supple, No JVD Heart: Regular Rate, Normal S1, Normal S2 Abdomen: Normal Bowel Sounds Skin: Other (Edema and erythema) Neuro: Normal Speech Psych/Mental Status: Mental Status NL Results Lab Laboratory Tests 08/11/19 05:54 08/11/19 06:41 A/P-Cardiology Admission Diagnosis Peripheral edema Congestive heart failure Acute renal failure Hypertension Assessment/Plan Peripheral edema, improving slowly, multifactorial. Continue on current treatment and continue to monitor Congestive heart failure, acute on chronic left ventricular systolic and diastolic dysfunction, ejection fraction 30-35 percent with left ventricular concentric hypertrophy, responding to diuretics. Acute on chronic kidney disease, acute renal failure, improving. Had a long discussion with the patient recommended nephrology evaluation and follow-up as an outpatient. Hypertension, continue on current medications and monitor blood pressure Diabetes mellitus, followed and managed by primary care physician. 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
[2019-08-11] MEDS ORDERED: GABAPENTIN 300 MG (NEURONTIN) CAP PO NR (17:00)
[2019-08-11] MEDS: ASPIRIN E.C. 81 MG (ECOTRIN) TAB PO SCH (20:41)
[2019-08-11] MEDS: SIMvastatin 10 MG (ZOCOR) TAB PO SCH (20:41)
[2019-08-12 04:40] VITALS: BP 123/82
[2019-08-12 05:30] LABS: HEMOGLOBIN 11.4 G/DL (13.3-17.7); RED CELL DISTRIBUTION WIDTH 15.8 % (10.0-14.5); WHITE BLOOD COUNT 6.4 10^3/uL (4.3-11.0)
[2019-08-12] MEDS: LEVOTHYROXINE 100 MCG (LEVOTHROID) TAB PO SCH (05:33)
[2019-08-12] MEDS: ENOXAPARIN 60 MG/0.6 ML (LOVENOX) SYR SC SCH (05:33)
[2019-08-12 05:47] LABS: CALCIUM 8.7 MG/DL (8.5-10.1); CREATININE SERUM 2.3 MG/DL (0.60-1.30); POTASSIUM 4.1 MMOL/L (3.6-5.0)
[2019-08-12 08:00] VITALS: BP 122/69
[2019-08-12] MEDS: FUROSEMIDE 40 MG/4 ML INJ (LASIX) IVP SCH (09:10)
[2019-08-12] MEDS: meTOprolol SUCCINATE 100 MG (TOPROL XL) TAB PO SCH (09:11)
[2019-08-12] MEDS: GABAPENTIN 100 MG (NEURONTIN) CAP PO SCH (09:11)
[2019-08-12] MEDS: inSUlin ASPART (NovoLOG) 1 UNIT/0.01 ML (CHARGE PER UNIT) SC SCH (09:12)
[2019-08-12] MEDS: PANTOPRAZOLE 20 MG TABLET (PROTONIX) PO SCH (09:13)
--- NOTE | 2019-08-12 10:00 | Physical Therapy Progress Note ---
Therapy Progress Note Patient declined PT stating he is going home and will be getting a FWW for home use. Nursing confirms. JOSE WALL PT Aug 12, 2019 10:00
[2019-08-12 12:00] VITALS: BP 132/64
--- NOTE | 2019-08-12 13:24 | Progress Note - Cardiology ---
Cardiology SOAP Progress Note Subjective: He feels much better compared to time of admission Denies cp or palp or syncope Leg swelling improved, but not resolved Wishes to go home Objective: I&O/Vital Signs 08/12/19 08/12/19 08/12/19 08/12/19 04:40 07:00 08:00 08:00 Temp 36.8 36.4 Pulse 90 87 92 Resp 20 20 B/P (MAP) 123/82 (96) 122/69 (86) Pulse Ox 96 92 O2 Delivery NIV CPAP Nasal Cannula Nasal Cannula O2 Flow Rate 3.00 3.00 08/12/19 08/12/19 10:18 12:12 Pulse 88 O2 Delivery Nasal Cannula O2 Flow Rate 2.50 08/12/19 00:00 Intake Total 1152 ml Output Total 1850 ml Balance -698 ml Weight (Pounds): 371 Weight (Ounces): 1.0 Weight (Calculated Kilograms): 168.384932 Constitutional: AAO x 3, other (morbidly obese) Respiratory: No accessory muscle use, No respiratory distress; chest expansion is symmetric, chest is bilaterally symmetric, other (good air entry) Cardiovascular: regular rate-rhythm; No JVD; S1 and S2 Gastrointestional: distended, audible bowel sounds Genital/Rectal: other (indwelling urinary catheter to DD with clear; hematuria) Extremities: other (Bilat pitting edema - improved) Neurologic/Psychiatric: grossly intact (moves extremieties) Skin: normal color, warm/dry Results/Procedures: Labs Laboratory Tests 08/11/19 14:56: Glucometer 144H 08/11/19 19:41: Glucometer 161H 08/12/19 04:58: White Blood Count 6.4, Red Blood Count 4.53, Hemoglobin 11.4L, Hematocrit 40, Mean Corpuscular Volume 89, Mean Corpuscular Hemoglobin 25, Mean Corpuscular Hemoglobin Concent 28L, Red Cell Distribution Width 15.8H, Platelet Count 340, Mean Platelet Volume 10.0, Sodium Level 139, Potassium Level 4.1, Chloride Level 101, Carbon Dioxide Level 25, Anion Gap 13, Blood Urea Nitrogen 40H, Creatinine 2.30H, Estimat Glomerular Filtration Rate 29, BUN/Creatinine Ratio 17, Glucose Level 106H, Calcium Level 8.7 08/12/19 09:28: Glucometer 199H Laboratory Tests 08/11/19 05:54 08/11/19 06:41 08/12/19 04:58 A/P: Assessment: Acute on chronic systolic/diastolic CHF - clinically improving WENCESLAO - 2 on CKD - 3 Hematuria of undetermined etiology Echo of 10/29/18: LVEF 30-35%, AoV scl w/o stenoses, PASP 25 mmHg. Most recent echo of Mar 29, 2019 showed LVEF 45-50% with grade 1 diastolic dysfunction. Echo of 08-08-2019 showed LVEF 30-35%, concentric hypertrophy, PASP 35 mmHg. 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
[2019-08-12 14:22] VITALS: BP 132/64
== END 2019-08-12 14:22 | disposition home or self-care (01) | DRG 292 ==
LOC: EDUNIT# 12:29 → ER 12:30 → 4TH 14:06
PROVIDERS: ADMIT Family Medicine; ATTEND Family Medicine
DX: I11.0 Hypertensive heart disease with heart failure (principal); E66.2 Morbid (severe) obesity with alveolar hypoventilation; Z68.44 Body mass index [BMI] 60.0-69.9, adult; N17.9 Acute kidney failure, unspecified; I50.43 Acute on chronic combined systolic (congestive) and diastolic (congestive) heart failure; I42.9 Cardiomyopathy, unspecified; J44.9 Chronic obstructive pulmonary disease, unspecified; I25.10 Atherosclerotic heart disease of native coronary artery without angina pectoris; E78.00 Pure hypercholesterolemia, unspecified; E11.40 Type 2 diabetes mellitus with diabetic neuropathy, unspecified; K21.9 Gastro-esophageal reflux disease without esophagitis; M19.90 Unspecified osteoarthritis, unspecified site; G89.29 Other chronic pain; M54.9 Dorsalgia, unspecified; E03.9 Hypothyroidism, unspecified; H26.9 Unspecified cataract; E78.5 Hyperlipidemia, unspecified; E11.22 Type 2 diabetes mellitus with diabetic chronic kidney disease; N18.3 Chronic kidney disease, stage 3 (moderate); K59.00 Constipation, unspecified; R31.9 Hematuria, unspecified; R53.81 Other malaise; Z86.73 Personal history of transient ischemic attack (TIA), and cerebral infarction without residual deficits; Z87.442 Personal history of urinary calculi; Z79.84 Long term (current) use of oral hypoglycemic drugs; I25.2 Old myocardial infarction; Z87.891 Personal history of nicotine dependence; Z79.82 Long term (current) use of aspirin
CPT/HCPCS: 36415; 51702; 71045; 80048; 80053; 81000; 82962; 83735; 83880; 84439; 84443; 85025; 85027; 85610; 85730; 93005; 93041; 93306; 94640; 94660; 94760

== ENCOUNTER 2019-08-26 20:10 | Emergency (ER) | payer MEDICARE, OTHER ==
[~2019-08-26] VITALS: Ht 187.9 cm; Wt 208.6 kg
[~2019-08-26 20:10] MED LIST changes: +CYCL10TA9 PO; +FURO40TA4 PO; +INSU100I14 SQ; +INSU100V6 SQ; +LEVO200T6 PO; +METF-478 PO; -OMEP-280 PO; +OMEP20CA18 PO; +RT-ALBUINH IH
[2019-08-26] MEDS ORDERED: NS IV 1000 ML 1,000 ML IV SCH (20:30)
[2019-08-26] MEDS ORDERED: CEFEPIME INJECTION 1,000 MG in WATER (STERILE) FOR INJECTION 10 ML IV ONE (20:30)
[2019-08-26] MEDS ORDERED: NS IV 500 ML 500 ML IV ONE (20:30)
[2019-08-26 20:41] LABS: BASOPHILS % (AUTO) 0 % (0-10); EOSINOPHILS # (AUTO) 0.2 10^3/uL (0.0-0.3); EOSINOPHILS % (AUTO) 3 % (0-10); HEMATOCRIT 41 % (40-54); HEMOGLOBIN 12.2 G/DL (13.3-17.7); LYMPHOCYTES % (AUTO) 14 % (12-44); MEAN CORPUSCULAR HEMOGLOBIN 25 PG (25-34); MEAN CORPUSCULAR HGB CONC 30 G/DL (32-36); MEAN CORPUSCULAR VOLUME 86 FL (80-99); MEAN PLATELET VOLUME 10.3 FL (7.4-10.4); MONOCYTES # (AUTO) 0.8 X 10^3 (0.0-1.0); MONOCYTES % (AUTO) 11 % (0-12); NEUTROPHILS # (AUTO) 5.2 X 10^3 (1.8-7.8); NEUTROPHILS % (AUTO) 71 % (42-75); PLATELET COUNT 313 10^3/uL (130-400); RED CELL DISTRIBUTION WIDTH 16.1 % (10.0-14.5); WHITE BLOOD COUNT 7.2 10^3/uL (4.3-11.0)
--- NOTE | 2019-08-26 20:52 | ED Integumentary General ---
General Chief Complaint: Lower Extremity Stated Complaint: INFECTION IN LEGS Nursing Triage Note: states he has BLE infection that his PCP is not taking care of Source: patient, EMS Exam Limitations: no limitations History of Present Illness Date Seen by Provider: Aug 26, 2019 Time Seen by Provider: 20:20 Initial Comments Patient presents to ER by EMS from home with chief complaint that he's had increasing redness swelling and pain in his lower extremities as well as weeping. He says they've an open weeping for the past 6 months and he was recently hospitalized for fluid overload CHF exacerbation but at that time they did not feel that his legs were cellulitic. He has not been on antibiotics. [facility] not follow with wound care for any reason. He was told by wound care locally that there were no open wounds for them to manage at that time. He has not had any fever. He does have chronic back pain for which she uses hydrocodone. He does not endorse any worsening orthopnea. He were CPAP and oxygen at night to sleep and occasionally he'll put his oxygen on during the day for his COPD when he feels he needs it. He does not have a significant cough shortness of breath or wheezing. He's having no dysuria. He has no wounds on his sacrum but he says he does have a little redness and wound under his right pannus. In the past he had a large infection on his abdomen caused by MRSA which caused him to be hospitalized for over a week. History of chronic kidney disease stage III. Echo 08/08/19 demonstrates an LVEF of 30-35%. MPI from 2017 showed EF of 30% without evidence for ischemia or infarction. Hypertension, morbid obesity with obesity hypoventilation syndrome and obstructive sleep apnea. Diabetes type 2, hyperlipidemia and chronic back pain. Chronic leg edema likely related to venous insufficiency. Symptoms claudication but segmental pressures from 2018 did not demonstrate significant obstructive disease of the legs. Allergies and Home Medications Allergies Coded Allergies: fentanyl (Verified Allergy, Severe, 08/08/19) meperidine (Verified Allergy, Unknown, 02/12/17) Uncoded Allergies: iv contrast (Adverse Reaction, Intermediate, 07/10/17) Home Medications Albuterol Sulfate 1 Puff Puff, 2 PUFF IH Q4H PRN for SHORTNESS OF BREATH, (Reported) 1 PUFF = 90 MCG Aspirin 81 Mg Tablet.dr, 81 MG PO HS, (Reported) Cyanocobalamin (Vitamin B-12) 1,000 Mcg Tablet, 1,000 MCG PO DAILY, (Reported) Cyclobenzaprine HCl 10 Mg Tablet, 10 MG PO BID PRN for MUSCLE SPASMS, (Reported) Furosemide 40 Mg Tablet, 80 MG PO DAILY, (Reported) TAKES 2 (40MG) TABLETS Gabapentin 100 Mg Capsule, 100 MG PO DAILY, (Reported) Gabapentin 100 Mg Capsule, 300 MG PO HS, (Reported) TAKES 3 (100MG) CAPSULES Hydrocodone Bit/Acetaminophen 1 Tab Tab, 1 TAB PO BID PRN for PAIN-MODERATE, (Reported) Insulin Aspart 300 Units/3 Ml Solution, 20 UNITS SQ 0800,1200, (Reported) Insulin Glargine,Hum.rec.anlog 100 Unit/1 Ml Vial, 70 UNIT SQ HS, (Reported) Levothyroxine Sodium 200 Mcg Tablet, 400 MCG PO DAILY, (Reported) TAKES 2 (200MCG) TABLETS Metformin HCl 500 Mg Tab.er.24, 1,000 MG PO BID, (Reported) TAKES 2 (500MG) TABLETS Metoprolol Succinate 100 Mg Tab.er.24h, 100-200 MG PO HS, (Reported) TAKES 1/2 TO 1 (200MG) TABLET DEPENDING ON BLOOD PRESSURE Metoprolol Succinate 200 Mg Tab.er.24h, 200 MG PO DAILY, (Reported) Omeprazole 20 Mg Capsule.dr, 20 MG PO DAILY, (Reported) Pravastatin Sodium 40 Mg Tablet, 20 MG PO HS, (Reported) TAKES 1/2 (40MG) TABLET Topiramate 50 Mg Tablet, 25-50 MG PO HS, (Reported) Patient Home Medication List Home Medication List Reviewed: Yes Review of Systems Review of Systems Constitutional: No chills, No fever; malaise EENTM: No hearing loss, No ear pain Respiratory: No cough, No short of breath Cardiovascular: No chest pain; edema (chronic lymphedema), other (CHF but no stents) Gastrointestinal: No abdominal pain, No constipation, No diarrhea Genitourinary: No discharge, No dysuria Musculoskeletal: back pain (chronic); No joint pain Skin: see HPI; No pruritus, No rash All Other Systems Reviewed Negative Unless Noted: Yes Past Bbzbrdi-Sfpbyy-Vepwei Hx Patient Social History Alcohol Use: Denies Use Recreational Drug Use: No Type Used: Cigarettes Former Smoker, Quit: Feb 13, 1987 2nd Hand Smoke Exposure: No Recent Foreign Travel: No Contact w/Someone Who Travel: No Recent Infectious Disease Expo: Yes Recent Hopitalizations: No Physical Abuse: No Sexual Abuse: No Mistreated: No Fear: No Immunizations Up To Date Tetanus Booster (TDap): Unknown Date of Pneumonia Vaccine: Mar 29, 2017 Date of Influenza Vaccine: Mar 26, 2019 Seasonal Allergies Seasonal Allergies: No Past Medical History Surgeries: Yes (KNEE SURGERY, LEFT SHOULDER SURGERY, HERNIA REPAIR, ) Abdominal, Cardiac, Gallbladder, Orthopedic Respiratory: Yes (uses CPAP and oxygen at night.) Sleep Apnea, COPD Currently Using CPAP: Yes Currently Using BIPAP: No Cardiac: Yes (CHF) Cardiomyopathy, Chronic Edema/Swelling, Coronary Artery Disease, Heart Attack, High Cholesterol, Hypertension Neurological: Yes (TIA'S X 4; STROKE X 1) Neuropathy, Stroke, TIA Sexually Transmitted Disease: No HIV/AIDS: No Genitourinary: Yes Kidney Stones, Renal Failure Gastrointestinal: Yes Gastroesophageal Reflux Musculoskeletal: Yes (HIP FX; 2 TORN ROTATOR CUFFS; RIGHT HIP AND LOWER BACK PAIN ) Degenerate Disk Disease, Arthritis, Chronic Back Pain, Fractures Endocrine: Yes (MORBID OBESITY--WEIGHT 460#, PER PT ON 06/04/19) Hypothyroidsim, Diabetes, Non-Insulin dep HEENT: Yes Cataract Loss of Vision: Bilateral Hearing Impairment: Hard of Hearing, Bilateral Hearing Aide Cancer: No Psychosocial: No Integumentary: Yes (LEG CELLULITIS; ABDOMINAL WALL CELLULITIS/PANNICULITIS) Recent Skin Changes Blood Disorders: No Adverse Reaction/Blood Tranf: No Family Medical History Cardiovascular disease 19 FATHER 19 MOTHER Diabetes mellitus 19 FATHER 19 MOTHER Hypercholesterolemia 19 FATHER 19 MOTHER Hypertension 19 FATHER 19 MOTHER Myocardial infarction 19 FATHER 19 MOTHER Heart Disease, Diabetes, Hypertension Physical Exam Vital Signs Vital Signs - First Documented 08/26/19 08/26/19 20:17 20:52 Temp 35.7 Pulse 103 Resp 20 B/P (MAP) 152/94 (113) O2 Delivery Room Air Capillary Refill : Less Than 3 Seconds General Appearance: mild distress, obese (morbidly) HEENT: PERRL/EOMI, TMs normal; No pharynx normal (oropharynx is dry) Neck: full range of motion, supple, normal inspection Cardiovascular: normal peripheral pulses, regular rate, rhythm, tachycardia, other (bilateral chronic lymphedema, weeping with sloughing of superficial soft tissue and unstageable ulcers bilaterally shins) Respiratory: lungs clear, no respiratory distress, no accessory muscle use, decreased breath sounds, other (oxygen saturations run around 90-95% depending on exertion level) Gastrointestinal: normal bowel sounds, non tender, soft Extremities: normal inspection, no pedal edema, normal capillary refill Neurologic/Psychiatric: alert, normal mood/affect, oriented x 3 Skin: other (moist, sloughing, erythematous, cellulitic appearing lower extr emities not involving the feet; to dried ulcers between the great toe and second digit distal phalanxes of the left foot unstageable each approximately 5 mm diameter.) Progress/Results/Core Measures Results/Orders Lab Results Laboratory Tests Test 08/26/19 20:24 08/26/19 20:45 Range/Units White Blood Count 7.2 4.3-11.0 10^3/uL Red Blood Count 4.82 4.35-5.85 10^6/uL Hemoglobin 12.2 L 13.3-17.7 G/DL Hematocrit 41 40-54 % Mean Corpuscular Volume 86 80-99 FL Mean Corpuscular Hemoglobin 25 25-34 PG Mean Corpuscular Hemoglobin Concent 30 L 32-36 G/DL Red Cell Distribution Width 16.1 H 10.0-14.5 % Platelet Count 313 130-400 10^3/uL Mean Platelet Volume 10.3 7.4-10.4 FL Neutrophils (%) (Auto) 71 42-75 % Lymphocytes (%) (Auto) 14 12-44 % Monocytes (%) (Auto) 11 0-12 % Eosinophils (%) (Auto) 3 0-10 % Basophils (%) (Auto) 0 0-10 % Neutrophils # (Auto) 5.2 1.8-7.8 X 10^3 Lymphocytes # (Auto) 1.0 1.0-4.0 X 10^3 Monocytes # (Auto) 0.8 0.0-1.0 X 10^3 Eosinophils # (Auto) 0.2 0.0-0.3 10^3/uL Basophils # (Auto) 0.0 0.0-0.1 10^3/uL Prothrombin Time 15.5 H 12.2-14.7 SEC INR Comment 1.2 0.8-1.4 Activated Partial Thromboplast Time 41 H 24-35 SEC Sodium Level 137 135-145 MMOL/L Potassium Level 4.1 3.6-5.0 MMOL/L Chloride Level 98 98-107 MMOL/L Carbon Dioxide Level 25 21-32 MMOL/L Anion Gap 14 5-14 MMOL/L Blood Urea Nitrogen 43 H 7-18 MG/DL Creatinine 2.11 H 0.60-1.30 MG/DL Estimat Glomerular Filtration Rate 32 BUN/Creatinine Ratio 20 Glucose Level 270 H 70-105 MG/DL Lactic Acid Level 2.38 *H 0.50-2.00 MMOL/L Calcium Level 9.2 8.5-10.1 MG/DL Corrected Calcium 9.7 8.5-10.1 MG/DL Total Bilirubin 0.8 0.1-1.0 MG/DL Aspartate Amino Transf (AST/SGOT) 32 5-34 U/L Alanine Aminotransferase (ALT/SGPT) 33 0-55 U/L Alkaline Phosphatase 442 H 40-136 U/L Total Protein 8.4 H 6.4-8.2 GM/DL Albumin 3.4 3.2-4.5 GM/DL Urine Color YELLOW Urine Clarity CLEAR Urine pH 5.5 5-9 Urine Specific [place] 1.015 L 1.016-1.022 Urine Protein TRACE H NEGATIVE Urine Glucose (UA) NEGATIVE NEGATIVE Urine Ketones NEGATIVE NEGATIVE Urine Nitrite NEGATIVE NEGATIVE Urine Bilirubin NEGATIVE NEGATIVE Urine Urobilinogen 0.2 < = 1.0 MG/DL Urine Leukocyte Esterase NEGATIVE NEGATIVE Urine RBC (Auto) NEGATIVE NEGATIVE Urine RBC NONE /HPF Urine WBC RARE /HPF Urine Squamous Epithelial Cells RARE /HPF Urine Crystals PRESENT H /LPF Urine Amorphous Sediment RARE LOY URATES H /LPF Urine Bacteria TRACE /HPF Urine Casts NONE /LPF Urine Mucus NEGATIVE /LPF Urine Culture Indicated CULTURE PENDING My Orders Orders - BERKLEY NORIEGA Cbc With Automated Diff (08/26/19 20:30) Comprehensive Metabolic Panel (08/26/19 20:30) Blood Culture (08/26/19 20:30) Sputum Culture (08/26/19 20:30) Urinalysis (08/26/19 20:30) Urine Culture (08/26/19 20:30) Protime With Inr (08/26/19 20:30) Partial Thromboplastin Time (08/26/19 20:30) Chest 1 View, Ap/Pa Only (08/26/19 20:30) Ed Iv/Invasive Line Start (08/26/19 20:30) Ed Iv/Invasive Line Start (08/26/19 20:30) Vital Signs Adult Sepsis Patie Q15M (08/26/19 20:30) O2 (08/26/19 20:30) Remove Rings In Anticipation O (08/26/19 20:30) Lactic Acid Analyzer (08/26/19 20:30) Ns Iv 1000 Ml (Sodium Chloride 0.9%) (08/26/19 20:30) Cefepime Injection (Maxipime Injection) (08/26/19 20:30) Ed Iv/Invasive Line Start (08/26/19 20:30) Ns Iv 500 Ml (Sodium Chloride 0.9%) (08/26/19 20:30) Vancomycin Injection (Vancomycin Injecti (08/26/19 20:30) Catheter(Urinary) Insert & Ass 03,15 (08/26/19 20:34) Medications Given in ED Current Medications Medications Dose Ordered Sig/Brittany Route Start Time Stop Time Status Last Admin Dose Admin Sodium Chloride 500 ml @ 0 mls/hr Q0M ONCE IV 08/26/19 20:30 08/26/19 20:35 DC 08/26/19 20:51 999 MLS/HR Vital Signs/I&O 08/26/19 08/26/19 20:17 20:52 Temp 35.7 35.7 Pulse 103 100 Resp 20 22 B/P (MAP) 152/94 (113) 123/98 O2 Delivery Room Air Blood Pressure Mean: 113 Progress Progress Note #1: Time: 21:00 Progress Note The patient has tachycardia and cellulitis. His pulmonary symptoms seem to be chronic from his COPD. We will treat to a goal of 89-96% oxygen saturation given his history of COPD. We have chosen cefepime and vancomycin given his history of chronic kidney disease. He does not want anything for the pain at the moment. Septic workup demonstrates a lactate of greater than 2. We will cautiously give him 1500 cc which is just about 20 mL/kg based on an ideal body weight of 80 kg. Clinically the patient appears to be intravascularly depleted hence the tachycardia, elevated lactic acid and dry clinical appearance. Because of this reduced ejection fraction however we will cautiously replete him with fluids. His creatinine is at baseline 2.1. Progress Note #2: Time: 21:11 Progress Note Discussed the patient with internal medicine, Dr. Smith and she declines to admit as we are on ICU and stepdown diversion in this patient has been extremely complicated in the past with an admission recently for COPD exacerbation and CHF exacerbation. Diagnostic Imaging Diagonstic Imaging: Xray Plain Films/CT/US/NM/MRI: chest (1v) Comments Minimal right lower pulmonary effusion NAME: LONG YANEZ [facility] REC#: [id number] PT STATUS: REG ER : 1955 PHYSICIAN: BERKLEY NORIEGA MD ADMIT DATE: 08/26/19/ER Draft Date of Exam:08/26/19 CHEST 1 VIEW, AP/PA ONLY INDICATION: Bilateral lower extremity infection Portable AP view of the chest is obtained with comparison made to the study of 08/08/2019. There is generalized cardiomegaly. Pulmonary vascularity is at the upper limits of normal. There does appear to be bilateral pleural thickening, greater on the left, with multiple left rib fractures. There is no evidence of pneumothorax or focal consolidation. No definite pleural fluid is identified. IMPRESSION: Pleural thickening which may be related to old injuries. Otherwise, there is continued cardiomegaly without evidence of pneumothorax, acute pneumonia or other adverse change. Dictated on workstation # [id number] Dict: 08/26/[id number] Trans: 08/26/192101 [facility] [id number] Interpreted by: COURTNEY NOVOA MD Electronically signed by: Reviewed: Reviewed by Me Departure Impression Primary Impression: Cellulitis Qualified Codes: L03.119 - Cellulitis of unspecified part of limb Additional Impressions: Sepsis Qualified Codes: A41.9 - Sepsis, unspecified organism CHF (congestive heart failure) Qualified Codes: I50.42 - Chronic combined systolic (congestive) and diastolic (congestive) heart failure Non-insulin dependent type 2 diabetes mellitus COPD (chronic obstructive pulmonary disease) Qualified Codes: J44.9 - Chronic obstructive pulmonary disease, unspecified RORY (obstructive sleep apnea) Obesity hypoventilation syndrome Disposition: SHT-TRM HOSP Condition: Stable Transfer Transfer Reason: Exceeds level of care (stepdown and ICU diversion.) Time Spoke to Accepting Phy: 22:00 Transfer Progress Notes Buddy [id number]: [facility] Triage; Dr. Chappell: He accepts the patient in admission for cellulitis, sepsis. We discussed the other comorbidities, echocardiogram etc. Transfer Facility: [place], [place] Method of Transfer: EMS Departure-Patient Inst. Referrals: NO,LOCAL PHYSICIAN (PCP) Primary Care Physician CARON MARTÍNEZ (Family) Primary Care Physician Focused Exam Sepsis Stage: Sepsis Possible Source: Skin/Soft Tissue Lactate Level 08/26/19 20:24: Lactic Acid Level 2.38*H Height, Weight, BMI Height: 6'2.00" Weight: 371lbs. 1.0oz. [id number]; 59.00 BMI Method:Stated Time of Focused Exam: 21:16 Respiratory: Lungs Clear, No Accessory Muscle Use, No Respiratory Distress, Decreased Breath Sounds Cardiovascular: Regular Rate, Rhythm Capillary Refill: Less Than 3 Seconds Peripheral Pulses: 1+ Radial Pulses (R), 1+ Radial Pulses (L) Skin: other (erythematous, moist, weeping edema bilateral lower extremities sparing the feet) Lactic Acid Level Laboratory Tests Test 08/26/19 20:24 Lactic Acid Level 2.38 MMOL/L (0.50-2.00) *H Within 3hrs of presentation: Admin fluids, Admin 30ml/kg IBW due to BMI>30, Admin ABX, Blood cultures prior to ABX's, Focus exam, Lactate level BERKLEY NORIEGA Aug 26, 2019 20:52
[2019-08-26 20:54] LABS: BILIRUBIN,URINE NEGATIVE (NEGATIVE); CLARITY,URINE CLEAR; COLOR,URINE YELLOW; GLUCOSE, URINE (UA) NEGATIVE (NEGATIVE); KETONES,URINE NEGATIVE (NEGATIVE); LEUKOCYTE ESTERASE ,URINE NEGATIVE (NEGATIVE); NITRITE,URINE NEGATIVE (NEGATIVE); PH,URINE 5.5 (5-9); PROTEIN,URINE TRACE (NEGATIVE)
[2019-08-26 20:56] LABS: ALBUMIN 3.4 GM/DL (3.2-4.5); BILIRUBIN,TOTAL 0.8 MG/DL (0.1-1.0); CALCIUM 9.2 MG/DL (8.5-10.1); CREATININE SERUM 2.11 MG/DL (0.60-1.30); POTASSIUM 4.1 MMOL/L (3.6-5.0); TOTAL PROTEIN 8.4 GM/DL (6.4-8.2)
[2019-08-26 20:58] LABS: INR 1.2 (0.8-1.4); PROTHROMBIN TIME PATIENT 15.5 SEC (12.2-14.7)
[2019-08-26 21:03] LABS: AMORPHOUS SEDIMENT,UR RARE AMOR URATES /LPF; BACTERIA,URINE TRACE /HPF; SQUAMOUS EPITHELIAL CELL,UR RARE /HPF; WBC,URINE RARE /HPF
--- NOTE | 2019-08-26 21:03 | Diagnostic Imaging Report ---
INDICATION: Bilateral lower extremity infection Portable AP view of the chest is obtained with comparison made to the study of 08/08/2019. There is generalized cardiomegaly. Pulmonary vascularity is at the upper limits of normal. There does appear to be bilateral pleural thickening, greater on the left, with multiple left rib fractures. There is no evidence of pneumothorax or focal consolidation. No definite pleural fluid is identified. IMPRESSION: Pleural thickening which may be related to old injuries. Otherwise, there is continued cardiomegaly without evidence of pneumothorax, acute pneumonia or other adverse change. Dictated by: Dictated on workstation # [id number]
[2019-08-26] MEDS: VANCOMYCIN INJECTION 1,000 MG in NS (IVPB) 250 ML IV SCH ×2 (21:41→23:26)
[2019-08-26] MEDS ORDERED: morphine INJ 10 MG/ML 1ML (SYR OR VIAL) IVP STA (22:03)
[2019-08-26] MEDS ORDERED: ONDANSETRON 4 MG/2 ML (SDV) Z0FRAN IVP ONE (22:15)
[2019-08-26 23:37] VITALS: BP 142/101
--- OUTSIDE RECORDS SUMMARY | 2019-08-31 13:12 | XMS REPORT | Continuity of Care Document ---
Demographics x Preferred Language Unknown Marital Status Unknown Yazidism Affiliation Unknown Race Unknown Ethnic Group Unknown Author Organization Unknown Address Unknown Phone Unavailable Allergies Active Description Code Type Severity Reaction Onset Reported/Identified Relationship to Patient Clinical Status Yes meperidine [id number] Drug Allerg y Unknown N/A 02/12/2017 Yes iv contrast iv contrast Moderate N/A 07/10/2017 Yes fentanyl [id number] Drug Allergy Severe N/A 08/08/2019 Medications There is no data. Problems Date Dx Coded Attending Type Code Diagnosis Diagnosed By 02/14/2017 LONG PLASCECNIA MD, Ot E11 .9 TYPE 2 DIABETES MELLITUS WITHOUT COMPLIC 02/14/2017 LONG PLASCENCIA MD, Ot E66 .2 MORBID (SEVERE) OBESITY WITH ALVEOLAR HY 02/14/2017 LONG PLASCENCIA MD, Ot E78 .5 HYPERLIPIDEMIA, UNSPECIFIED 02/14/2017 LONG PLASCENCIA MD, Ot I11 .0 HYPERTENSIVE HEART DISEASE WITH HEART FA 02/14/2017 LONG PLASCENCIA MD, Ot I25.10 ATHSCL HEART DISEASE OF [place] CORONARY 02/14/2017 LONG PLASCENCIA MD, Ot I25 .2 OLD MYOCARDIAL INFARCTION 02/14/2017 LONG PLASCENCIA MD, Ot I50.22 CHRONIC SYSTOLIC (CONGESTIVE) HEART FAIL 02/14/2017 LONG PLASCENCIA MD, Ot J44 .9 CHRONIC OBSTRUCTIVE PULMONARY DISEASE, U 02/14/2017 LONG PLASCENCIA MD, Ot R60 .1 GENERALIZED EDEMA 02/14/2017 LONG PLASCENCIA MD, Ot Z79.82 SHELTER (CURRENT) USE OF ASPIRIN 02/14/2017 LONG PLASCENCIA MD, Ot Z79.84 SHELTER (CURRENT) USE OF ORAL HYPOGLYC 02/14/2017 LONG PLASCENCIA MD, Ot Z79.899 OTHER HEALTH SCIENCE SPECIALIST (CURRENT) DRUG THERAPY 02/14/2017 LONG PLASCENCIA MD, Ot Z87.891 PERSONAL HISTORY OF NICOTINE DEPENDENCE 02/14/2017 LONG PLASCENCIA MD, Ot Z99.81 DEPENDENCE ON SUPPLEMENTAL OXYGEN 04/03/2017 LONG PLASCENCIA MD, Ot E11 .9 TYPE 2 DIABETES MELLITUS WITHOUT COMPLIC 04/03/2017 LONG PLASCENCIA MD Ot E66 .2 MORBID (SEVERE) OBESITY WITH ALVEOLAR HY 04/03/2017 LONG PLASCENCIA MD Ot E78 .5 HYPERLIPIDEMIA, UNSPECIFIED 04/03/2017 LONG PLASCENCIA MD Ot I11 .0 HYPERTENSIVE HEART DISEASE WITH HEART FA 04/03/2017 LONG PLASCENCIA MD Ot I25.10 ATHSCL HEART DISEASE OF [place] CORONARY 04/03/2017 LONG PLASCENCIA MD, Ot I25 .2 OLD MYOCARDIAL INFARCTION 04/03/2017 LONG PLASCENCIA MD Ot I50.22 CHRONIC SYSTOLIC (CONGESTIVE) HEART FAIL 04/03/2017 LONG PLASCENCIA MD, Ot J44 .9 CHRONIC OBSTRUCTIVE PULMONARY DISEASE, U 04/03/2017 LONG PLASCENCIA MD Ot R60 .1 GENERALIZED EDEMA 04/03/2017 LONG PLASCENCIA MD Ot Z79.82 HEALTH SCIENCE SPECIALIST (CURRENT) USE OF ASPIRIN 04/03/2017 LONG PLASCENCIA MD Ot Z79.84 SHELTER (CURRENT) USE OF ORAL HYPOGLYC 04/03/2017 LONG PLASCENCIA MD Ot Z79.899 OTHER HEALTH SCIENCE SPECIALIST (CURRENT) DRUG THERAPY 04/03/2017 LONG PLASCENCIA MD Ot Z87.891 PERSONAL HISTORY OF NICOTINE DEPENDENCE 04/03/2017 LONG PLASCENCIA MD Ot Z99.81 DEPENDENCE ON SUPPLEMENTAL OXYGEN 07/10/2017 DAVID SALCEDO APRN Ot G47.30 SLEEP APNEA, UNSPECIFIED 07/10/2017 DAVID SALCEDO APRN Ot G89.29 OTHER CHRONIC PAIN 07/10/2017 DVAID SALCEDO APRN Ot I10 ESSENTIAL (PRIMARY) HYPERTENSION 07/10/2017 DAVID SALCEDO APRN Ot I25 .2 OLD MYOCARDIAL INFARCTION 07/10/2017 DAVID SALCEDO APRN Ot I50 .9 HEART FAILURE, UNSPECIFIED 07/10/2017 DAVID SALCEDO APRN Ot J44 .9 CHRONIC OBSTRUCTIVE PULMONARY DISEASE, U 07/10/2017 DAVID SALCEDO APRN Ot K21 .9 GASTRO-ESOPHAGEAL REFLUX DISEASE WITHOUT 07/10/2017 DAVID SALCEDO APRN Ot M25.551 PAIN IN RIGHT HIP 07/10/2017 DAVID SALCEDO APRN Ot R03 .0 ELEVATED BLOOD-PRESSURE READING, W/O LYLY 07/10/2017 DAVID SALCEDO APRN Ot Z79.82 HEALTH SCIENCE SPECIALIST (CURRENT) USE OF ASPIRIN 07/10/2017 DAVID SALCEDO APRN Ot Z86.73 PRSNL HX OF TIA (TIA), AND CEREB INFRC W 07/10/2017 DAVID SALCEDO APRN Ot Z87.442 PERSONAL HISTORY OF URINARY CALCULI 07/10/2017 DAVID SALCEDO APRN Ot Z87.81 PERSONAL HISTORY OF (HEALED) TRAUMATIC F 07/10/2017 DAVID SALCEDO APRN Ot Z87.891 PERSONAL HISTORY OF NICOTINE DEPENDENCE 07/18/2017 DAVID SALCEDO APRN Ot G47.30 SLEEP APNEA, UNSPECIFIED 07/18/2017 DAVID SALCEDO APRN Ot G89.29 OTHER CHRONIC PAIN 07/18/2017 DAVID SALCEDO APRN Ot I10 ESSENTIAL (PRIMARY) HYPERTENSION 07/18/2017 DAVID SALCEDO APRN Ot I25 .2 OLD MYOCARDIAL INFARCTION 07/18/2017 DAVID SALCEDO APRN Ot I50 .9 HEART FAILURE, UNSPECIFIED 07/18/2017 DAVID SALCEDO APRN Ot J44 .9 CHRONIC OBSTRUCTIVE PULMONARY DISEASE, U 07/18/2017 DAVID SALCEDO APRN Ot K21 .9 GASTRO-ESOPHAGEAL REFLUX DISEASE WITHOUT 07/18/2017 DAVID SALCEDO APRN Ot M25.551 PAIN IN RIGHT HIP 07/18/2017 DAVID SALCEDO APRN Ot R03 .0 ELEVATED BLOOD-PRESSURE READING, W/O LYLY 07/18/2017 DAVID SALCEDO APRN Ot Z79.82 HEALTH SCIENCE SPECIALIST (CURRENT) USE OF ASPIRIN 07/18/2017 DAVID SALCEDO APRN Ot Z86.73 PRSNL HX OF TIA (TIA), AND CEREB INFRC W 07/18/2017 DAVID SALCEDO APRN Ot Z87.442 PERSONAL HISTORY OF URINARY CALCULI 07/18/2017 DAVID SALCEDO APRN Ot Z87.81 PERSONAL HISTORY OF (HEALED) TRAUMATIC F 07/18/2017 DAVID SALCEDO APRN Ot Z87.891 PERSONAL HISTORY OF NICOTINE DEPENDENCE 08/16/2017 REGINA LAWS FACC, LANCE VALADEZP CCDS Ot I73.9 PERIPHERAL VASCULAR DISEASE, UNSPECIFIED 08/18/2017 REGINA LAWS FACC, LANCE FACP CCDS Ot I73.9 PERIPHERAL VASCULAR DISEASE, UNSPECIFIED 08/18/2017 REGINA LAWS FACC, ALI FACP CCDS Ot I73.9 PERIPHERAL VASCULAR DISEASE, UNSPECIFIED 08/18/2017 REGINA LAWS FACC, ALI FACP CCDS Ot I73.9 PERIPHERAL VASCULAR DISEASE, UNSPECIFIED 08/18/2017 REGINA LAWS FACC, ALI FACP CCDS Ot I73.9 PERIPHERAL VASCULAR DISEASE, UNSPECIFIED 08/18/2017 REGINA LAWS FACC, ALI FACP CCDS Ot I73.9 PERIPHERAL VASCULAR DISEASE, UNSPECIFIED 08/18/2017 REGINA LAWS FACC, ALI FACP CCDS Ot I73.9 PERIPHERAL VASCULAR DISEASE, UNSPECIFIED 08/18/2017 REGINA LAWS FACC, ALI FACP CCDS Ot I73.9 PERIPHERAL VASCULAR DISEASE, UNSPECIFIED 08/18/2017 REGINA LAWS FACC, ALI FACP CCDS Ot I73.9 PERIPHERAL VASCULAR DISEASE, UNSPECIFIED 08/29/2017 REGINA LAWS FACC, ALI FACP CCDS Ot E66.01 MORBID (SEVERE) OBESITY DUE TO EXCESS CA 08/29/2017 REGINA LAWS FACC, LANCE FACP CCDS Ot G47.33 OBSTRUCTIVE SLEEP APNEA (ADULT) (PEDIATR 08/29/2017 REGINA VALADEZC, ALI FACP CCDS Ot I10 ESSENTIAL (PRIMARY) HYPERTENSION 08/29/2017 REGINA LAWS FACC, ALI FACP CCDS Ot I42.0 DILATED CARDIOMYOPATHY 08/29/2017 REGINA LAWS FACC, ALI FACP CCDS Ot I73.9 PERIPHERAL VASCULAR DISEASE, UNSPECIFIED 08/29/2017 REGINA LAWS FACC, ALI FACP CCDS Ot M79.89 OTHER SPECIFIED SOFT TISSUE DISORDERS 08/29/2017 REGINA LAWS FACC, ALI FACP CCDS Ot R06.02 SHORTNESS OF BREATH 10/23/2017 REGINA VALADEZC, ALI FACP CCDS Ot E66.01 MORBID (SEVERE) OBESITY DUE TO EXCESS CA 10/23/2017 REGINA LAWS FACC, ALI FACP CCDS Ot G47.33 OBSTRUCTIVE SLEEP APNEA (ADULT) (PEDIATR 10/23/2017 REGINA VALADEZC, ALI FACP CCDS Ot I10 ESSENTIAL (PRIMARY) HYPERTENSION 10/23/2017 REGINA LAWS FACC, ALI FACP CCDS Ot I42.0 DILATED CARDIOMYOPATHY 10/23/2017 REGINA VALADEZC, ALI FACP CCDS Ot I73.9 PERIPHERAL VASCULAR DISEASE, UNSPECIFIED 10/23/2017 REGINA LAWS FAC, ALI FACP CCDS Ot M79.89 OTHER SPECIFIED SOFT TISSUE DISORDERS 10/23/2017 REGINA LAWS FAC, ALI FACP CCDS Ot R06.02 SHORTNESS OF BREATH 03/05/2018 BERKLEY NORIEGA MD Ot E11. 9 TYPE 2 DIABETES MELLITUS WITHOUT COMPLIC 03/05/2018 BERKLEY NORIEGA MD Ot F17.290 NICOTINE DEPENDENCE, OTHER TOBACCO PRODU 03/05/2018 BERKLEY NORIEGA MD Ot G47. 33 OBSTRUCTIVE SLEEP APNEA (ADULT) (PEDIATR 03/05/2018 BERKLEY NORIEGA MD Ot I11. 0 HYPERTENSIVE HEART DISEASE WITH HEART FA 03/05/2018 BERKLEY NORIEGA MD Ot I25. 2 OLD MYOCARDIAL INFARCTION 03/05/2018 BERKLEY NORIEGA MD Ot I42. 9 CARDIOMYOPATHY, UNSPECIFIED 03/05/2018 BERKLEY NORIEGA MD Ot I50. 20 UNSPECIFIED SYSTOLIC (CONGESTIVE) HEART 03/05/2018 BERKLEY NORIEGA MD Ot J44. 1 CHRONIC OBSTRUCTIVE PULMONARY DISEASE W 03/05/2018 BERKLEY NORIEGA MD Ot K21. 9 GASTRO-ESOPHAGEAL REFLUX DISEASE WITHOUT 03/05/2018 BERKLEY NORIEGA MD Ot R06. 02 SHORTNESS OF BREATH 03/05/2018 BERKLEY NORIEGA MD Ot Z79. 51 HEALTH SCIENCE SPECIALIST (CURRENT) USE OF INHALED STERO 03/05/2018 BERKLEY NORIEGA MD Ot Z79. 82 HEALTH SCIENCE SPECIALIST (CURRENT) USE OF ASPIRIN 03/05/2018 BERKLEY NORIEGA MD Ot Z79. 84 HEALTH SCIENCE SPECIALIST (CURRENT) USE OF ORAL HYPOGLYC 03/05/2018 BERKLEY NORIEGA MD Ot Z82. 49 FAMILY HX OF ISCHEM HEART DIS AND OTH DI 03/05/2018 BERKLEY NORIEGA MD Ot Z86. 73 PRSNL HX OF TIA (TIA), AND CEREB INFRC W 03/05/2018 BERKLEY NORIEGA MD Ot Z87. 19 PERSONAL HISTORY OF OTHER DISEASES OF TH 03/05/2018 BERKLEY NORIEGA MD Ot Z87.442 PERSONAL HISTORY OF URINARY CALCULI 03/05/2018 BERKLEY NORIEGA MD Ot Z87.891 PERSONAL HISTORY OF NICOTINE DEPENDENCE 03/05/2018 BERKLEY NORIEGA MD Ot Z88. 8 ALLERGY STATUS TO OT DRUG/MEDS/BIOL SUB 03/05/2018 BERKLEY NORIEGA MD Ot Z91.048 OTHER NONMEDICINAL SUBSTANCE ALLERGY STA 03/07/2018 BERKLEY NORIEGA MD Ot E11. 9 TYPE 2 DIABETES MELLITUS WITHOUT COMPLIC 03/07/2018 BERKLEY NORIEGA MD Ot F17.290 NICOTINE DEPENDENCE, OTHER TOBACCO PRODU 03/07/2018 BERKLEY NORIEGA MD Ot G47. 33 OBSTRUCTIVE SLEEP APNEA (ADULT) (PEDIATR 03/07/2018 BERKLEY NORIEGA MD Ot I11. 0 HYPERTENSIVE HEART DISEASE WITH HEART FA 03/07/2018 BERKLEY NORIEGA MD Ot I25. 2 OLD MYOCARDIAL INFARCTION 03/07/2018 BERKLEY NORIEGA MD Ot I42. 9 CARDIOMYOPATHY, UNSPECIFIED 03/07/2018 BERKLEY NORIEGA MD Ot I50. 20 UNSPECIFIED SYSTOLIC (CONGESTIVE) HEART 03/07/2018 BERKLEY NORIEGA MD Ot J44. 1 CHRONIC OBSTRUCTIVE PULMONARY DISEASE W 03/07/2018 BERKLEY NORIEGA MD Ot K21. 9 GASTRO-ESOPHAGEAL REFLUX DISEASE WITHOUT 03/07/2018 BERKLEY NORIEGA MD Ot R06. 02 SHORTNESS OF BREATH 03/07/2018 BERKLEY NORIEGA MD Ot Z79. 51 HEALTH SCIENCE SPECIALIST (CURRENT) USE OF INHALED STERO 03/07/2018 BERKLEY NORIEGA MD Ot Z79. 82 HEALTH SCIENCE SPECIALIST (CURRENT) USE OF ASPIRIN 03/07/2018 BERKLEY NORIEGA MD Ot Z79. 84 HEALTH SCIENCE SPECIALIST (CURRENT) USE OF ORAL HYPOGLYC 03/07/2018 BERKLEY NORIEGA MD Ot Z82. 49 FAMILY HX OF ISCHEM HEART DIS AND OTH DI 03/07/2018 BERKLEY NORIEGA MD Ot Z86. 73 PRSNL HX OF TIA (TIA), AND CEREB INFRC W 03/07/2018 BERKLEY NORIEGA MD Ot Z87. 19 PERSONAL HISTORY OF OTHER DISEASES OF TH 03/07/2018 BERKLEY NORIEGA MD Ot Z87.442 PERSONAL HISTORY OF URINARY CALCULI 03/07/2018 BERKLEY NORIEGA MD Ot Z87.891 PERSONAL HISTORY OF NICOTINE DEPENDENCE 03/07/2018 BERKLEY NORIEGA MD Ot Z88. 8 ALLERGY STATUS TO OT DRUG/MEDS/BIOL SUB 03/07/2018 BERKLEY NORIEGA MD Ot Z91.048 OTHER NONMEDICINAL SUBSTANCE ALLERGY STA 04/27/2018 BERKLEY NORIEGA MD Ot E11. 9 TYPE 2 DIABETES MELLITUS WITHOUT COMPLIC 04/27/2018 BERKLEY NORIEGA MD Ot F17.290 NICOTINE DEPENDENCE, OTHER TOBACCO PRODU 04/27/2018 BERKLEY NORIEGA MD Ot G47. 33 OBSTRUCTIVE SLEEP APNEA (ADULT) (PEDIATR 04/27/2018 BERKLEY NORIEGA MD Ot I11. 0 HYPERTENSIVE HEART DISEASE WITH HEART FA 04/27/2018 BERKLEY NORIEGA MD Ot I25. 2 OLD MYOCARDIAL INFARCTION 04/27/2018 BERKLEY NORIEGA MD Ot I42. 9 CARDIOMYOPATHY, UNSPECIFIED 04/27/2018 BERKLEY NORIEGA MD Ot I50. 20 UNSPECIFIED SYSTOLIC (CONGESTIVE) HEART 04/27/2018 BERKLEY NORIEGA MD Ot J44. 1 CHRONIC OBSTRUCTIVE PULMONARY DISEASE W 04/27/2018 BERKLEY NORIEGA MD Ot K21. 9 GASTRO-ESOPHAGEAL REFLUX DISEASE WITHOUT 04/27/2018 BERKLEY NORIEGA MD Ot R06. 02 SHORTNESS OF BREATH 04/27/2018 BERKLEY NORIEGA MD Ot Z79. 51 SHELTER (CURRENT) USE OF INHALED STERO 04/27/2018 BERKLEY NORIEGA MD Ot Z79. 82 SHELTER (CURRENT) USE OF ASPIRIN 04/27/2018 BERKLEY NORIEGA MD Ot Z79. 84 HEALTH SCIENCE SPECIALIST (CURRENT) USE OF ORAL HYPOGLYC 04/27/2018 BERKLEY NORIEGA MD Ot Z82. 49 FAMILY HX OF ISCHEM HEART DIS AND OTH DI 04/27/2018 BERKLEY NORIEGA MD Ot Z86. 73 PRSNL HX OF TIA (TIA), AND CEREB INFRC W 04/27/2018 BERKLEY NORIEGA MD Ot Z87. 19 PERSONAL HISTORY OF OTHER DISEASES OF TH 04/27/2018 BERKLEY NORIEGA MD Ot Z87.442 PERSONAL HISTORY OF URINARY CALCULI 04/27/2018 BERKLEY NORIEGA MD Ot Z87.891 PERSONAL HISTORY OF NICOTINE DEPENDENCE 04/27/2018 BERKLEY NORIEGA MD Ot Z88. 8 ALLERGY STATUS TO OTH DRUG/MEDS/BIOL SUB 04/27/2018 HARI LAWS, BERKLEY Rondon Ot Z91.048 OTHER NONMEDICINAL SUBSTANCE ALLERGY STA 08/29/2018 BREANN WING DO Ot E66.01 MORBID (SEVERE) OBESITY DUE TO EXCESS CA 08/29/2018 ALEXIS WING DOA K Ot E78.00 PURE HYPERCHOLESTEROLEMIA, UNSPECIFIED 08/29/2018 ALEXIS WING DOA K Ot G47.30 SLEEP APNEA, UNSPECIFIED 08/29/2018 ALEXIS WING DOA K Ot I11.0 HYPERTENSIVE HEART DISEASE WITH HEART FA 08/29/2018 ALEXIS WING DOA K Ot I25.2 OLD MYOCARDIAL INFARCTION 08/29/2018 ALEXIS WING DOA K Ot I42.9 CARDIOMYOPATHY, UNSPECIFIED 08/29/2018 MECCA BRIZUELA BREANN K Ot I50.9 HEART FAILURE, UNSPECIFIED 08/29/2018 MECCA BRIZUELA BREANN K Ot J44.9 CHRONIC OBSTRUCTIVE PULMONARY DISEASE, U 08/29/2018 BREANN WING DO Ot R03.0 ELEVATED BLOOD-PRESSURE READING, W/O LYLY 08/29/2018 MECCA BRIZUELA BREANN K Ot Z79.4 HEALTH SCIENCE SPECIALIST (CURRENT) USE OF INSULIN 08/29/2018 MECCA BRIZUELA BREANN K Ot Z79.82 HEALTH SCIENCE SPECIALIST (CURRENT) USE OF ASPIRIN 08/29/2018 MECCA BRIZUELA BREANN K Ot Z82.49 FAMILY HX OF ISCHEM HEART DIS AND OTH DI 08/29/2018 MECCA BRIZUELA BREANN K Ot Z86.73 PRSNL HX OF TIA (TIA), AND CEREB INFRC W 08/29/2018 MECCA BRIZUELA BREANN Pabon Ot Z87.442 PERSONAL HISTORY OF URINARY CALCULI 08/29/2018 MECCA BRIZUELA BREANN K Ot Z87.891 PERSONAL HISTORY OF NICOTINE DEPENDENCE 08/29/2018 MECCA BRIZUELA BREANN K Ot Z88.8 ALLERGY STATUS TO OTH DRUG/MEDS/BIOL SUB 08/29/2018 MECCA BRIZUELA BREANN K Ot Z91.041 RADIOGRAPHIC DYE ALLERGY STATUS 08/29/2018 MECCA BRIZUELA BREANN K Ot Z98.890 OTHER SPECIFIED POSTPROCEDURAL STATES 09/22/2018 SALONI LAWS, TIMOTHY Angel Ot E11.40 TYPE 2 DIABETES MELLITUS WITH DIABETIC N 09/22/2018 TIMOTHY GUALLPA MD, Ot E66.01 MORBID (SEVERE) OBESITY DUE TO EXCESS CA 09/22/2018 TIMOTHY GUALLPA MD, Ot E66.09 OTHER OBESITY DUE TO EXCESS CALORIES 09/22/2018 TIMOTHY GUALLPA MD, Ot E78.00 PURE HYPERCHOLESTEROLEMIA, UNSPECIFIED 09/22/2018 TIMOTHY GUALLPA MD, Ot E83.42 HYPOMAGNESEMIA 09/22/2018 TIMOTHY GUALLPA MD, Ot G47.30 SLEEP APNEA, UNSPECIFIED 09/22/2018 TIMOTHY GUALLPA MD, Ot I11.0 HYPERTENSIVE HEART DISEASE WITH HEART FA 09/22/2018 TIMOTHY GUALLPA MD, Ot I25.10 ATHSCL HEART DISEASE OF [place] CORONARY 09/22/2018 TIMOTHY GUALLPA MD, Ot I25.2 OLD MYOCARDIAL INFARCTION 09/22/2018 TIMOTHY GUALLPA MD, Ot I50.9 HEART FAILURE, UNSPECIFIED 09/22/2018 TIMOTHY GUALLPA MD, Ot J44.1 CHRONIC OBSTRUCTIVE PULMONARY DISEASE W 09/22/2018 TIMOTHY GUALLPA MD, Ot K21.9 GASTRO-ESOPHAGEAL REFLUX DISEASE WITHOUT 09/22/2018 TIMOTHY GUALLPA MD, Ot R07.9 CHEST PAIN, UNSPECIFIED 09/22/2018 TIMOTHY GUALLPA MD, Ot Z68.43 BODY MASS INDEX (BMI) 50-59.9, ADULT 09/22/2018 TIMOTHY GUALLPA MD, Ot Z79.4 HEALTH SCIENCE SPECIALIST (CURRENT) USE OF INSULIN 09/22/2018 TIMOTHY GUALLPA MD, Ot Z79.82 HEALTH SCIENCE SPECIALIST (CURRENT) USE OF ASPIRIN 09/22/2018 TIMOTHY GUALLPA MD, Ot Z82.49 FAMILY HX OF ISCHEM HEART DIS AND OTH DI 09/22/2018 TIMOTHY GUALLPA MD, Ot Z86.73 PRSNL HX OF TIA (TIA), AND CEREB INFRC W 09/22/2018 TIMOTHY GUALLPA MD, Ot Z87.442 PERSONAL HISTORY OF URINARY CALCULI 09/22/2018 TIMOTHY GUALLPA MD, Ot Z87.891 PERSONAL HISTORY OF NICOTINE DEPENDENCE 09/22/2018 TIMOTHY GUALLPA MD, Ot Z88.8 ALLERGY STATUS TO OTH DRUG/MEDS/BIOL SUB 09/22/2018 TIMOTHY GUALLPA MD, Ot Z91.041 RADIOGRAPHIC DYE ALLERGY STATUS 09/22/2018 TIMOTHY GUALLPA MD, Ot Z98.890 OTHER SPECIFIED POSTPROCEDURAL STATES 09/26/2018 TIMOTHY GUALLPA MD, Ot E11.40 TYPE 2 DIABETES MELLITUS WITH DIABETIC N 09/26/2018 TIMOTHY GUALLPA MD, Ot E66.01 MORBID (SEVERE) OBESITY DUE TO EXCESS CA 09/26/2018 TIMOTHY GUALLPA MD, Ot E66.09 OTHER OBESITY DUE TO EXCESS CALORIES 09/26/2018 TIMOTHY GUALLPA MD, Ot E78.00 PURE HYPERCHOLESTEROLEMIA, UNSPECIFIED 09/26/2018 TIMOTHY GUALLPA MD, Ot E83.42 HYPOMAGNESEMIA 09/26/2018 TIMOTHY GUALLPA MD, Ot G47.30 SLEEP APNEA, UNSPECIFIED 09/26/2018 TIMOTHY GUALLPA MD, Ot I11.0 HYPERTENSIVE HEART DISEASE WITH HEART FA 09/26/2018 TIMOTHY GUALLPA MD, Ot I25.10 ATHSCL HEART DISEASE OF [place] CORONARY 09/26/2018 TIMOTHY GUALLPA MD, Ot I25.2 OLD MYOCARDIAL INFARCTION 09/26/2018 TIMOTHY GUALLPA MD, Ot I50.9 HEART FAILURE, UNSPECIFIED 09/26/2018 TIMOTHY GUALLPA MD, Ot J44.1 CHRONIC OBSTRUCTIVE PULMONARY DISEASE W 09/26/2018 TIMOTHY GUALLPA MD, Ot K21.9 GASTRO-ESOPHAGEAL REFLUX DISEASE WITHOUT 09/26/2018 TIMOTHY GUALLPA MD, Ot R07.9 CHEST PAIN, UNSPECIFIED 09/26/2018 TIMOTHY GUALLPA MD, Ot Z68.43 BODY MASS INDEX (BMI) 50-59.9, ADULT 09/26/2018 TIMOTHY GUALLPA MD, Ot Z79.4 HEALTH SCIENCE SPECIALIST (CURRENT) USE OF INSULIN 09/26/2018 TIMOTHY GUALLPA MD, Ot Z79.82 SHELTER (CURRENT) USE OF ASPIRIN 09/26/2018 TIMOTHY GUALLPA MD, Ot Z82.49 FAMILY HX OF ISCHEM HEART DIS AND OTH DI 09/26/2018 TIMOTHY GUALLPA MD, Ot Z86.73 PRSNL HX OF TIA (TIA), AND CEREB INFRC W 09/26/2018 TIMOTHY GUALLPA MD, Ot Z87.442 PERSONAL HISTORY OF URINARY CALCULI 09/26/2018 TIMOTHY GUALLPA MD, Ot Z87.891 PERSONAL HISTORY OF NICOTINE DEPENDENCE 09/26/2018 TIMOTHY GUALLPA MD, Ot Z88.8 ALLERGY STATUS TO [facility] DRUG/MEDS/BIOL SUB 09/26/2018 TIMOTHY GUALLPA MD, Ot Z91.041 RADIOGRAPHIC DYE ALLERGY STATUS 09/26/2018 TIMOTHY GUALLPA MD, Ot Z98.890 OTHER SPECIFIED POSTPROCEDURAL STATES 10/31/2018 NIKOLE BUENROSTRO MD, Ot A41.9 SEPSIS, UNSPECIFIED ORGANISM 10/31/2018 NIKOLE BUENROSTRO MD, Ot B37.2 CANDIDIASIS OF SKIN AND NAIL 10/31/2018 NIKOLE BUENROSTRO MD, Ot E03.9 HYPOTHYROIDISM, UNSPECIFIED 10/31/2018 NIKOLE BUENROSTRO MD, Ot E11.21 TYPE 2 DIABETES MELLITUS WITH DIABETIC N 10/31/2018 NIKOLE BUENROSTRO MD, Ot E11.42 TYPE 2 DIABETES MELLITUS WITH DIABETIC P 10/31/2018 NIKOLE BUENROSTRO MD, Ot E11.65 TYPE 2 DIABETES MELLITUS WITH HYPERGLYCE 10/31/2018 NIKOLE BUENROSTRO MD, Ot E66.2 MORBID (SEVERE) OBESITY WITH ALVEOLAR HY 10/31/2018 NIKOLE BUENROSTRO MD, Ot E78.00 PURE HYPERCHOLESTEROLEMIA, UNSPECIFIED 10/31/2018 NIKOLE BUENROSTRO MD, Ot I12.9 HYPERTENSIVE CHRONIC KIDNEY DISEASE W ST 10/31/2018 NIKOLE BUENROSTRO MD, Ot I25.10 ATHSCL HEART DISEASE OF [place] CORONARY 10/31/2018 NIKOLE BUENROSTRO MD, Ot I25.2 OLD MYOCARDIAL INFARCTION 10/31/2018 NIKOLE BUENROSTRO MD, Ot I42.0 DILATED CARDIOMYOPATHY 10/31/2018 NIKOLE BUENROSTRO MD, Ot I50.22 CHRONIC SYSTOLIC (CONGESTIVE) HEART FAIL 10/31/2018 NIKOLE BUENROSTRO MD, Ot I87.2 VENOUS INSUFFICIENCY (CHRONIC) (PERIPHER 10/31/2018 NIKOLE BUENROSTRO MD, Ot I87.8 OTHER SPECIFIED DISORDERS OF VEINS 10/31/2018 NIKOLE BUENROSTRO MD, Ot J44.9 CHRONIC OBSTRUCTIVE PULMONARY DISEASE, U 10/31/2018 NIKOLE BUENROSTRO MD, Ot K21.9 GASTRO-ESOPHAGEAL REFLUX DISEASE WITHOUT 10/31/2018 NIKOLE BUENROSTRO MD Ot L03.311 CELLULITIS OF ABDOMINAL WALL 10/31/2018 NIKOLE BUENROSTRO MD, Ot M54.9 DORSALGIA, UNSPECIFIED 10/31/2018 NIKOLE BUENROSTRO MD, Ot M79.3 PANNICULITIS, UNSPECIFIED 10/31/2018 NIKOLE BUENROSTRO MD Ot N17.9 ACUTE KIDNEY FAILURE, UNSPECIFIED 10/31/2018 NIKOLE BUENROSTRO MD, Ot N18.2 CHRONIC KIDNEY DISEASE, STAGE 2 (MILD) 10/31/2018 NIKOLE BUENROSTRO MD Ot N39.0 URINARY TRACT INFECTION, SITE NOT SPECIF 10/31/2018 NIKOLE BUENROSTRO MD Ot R65.21 SEVERE SEPSIS WITH SEPTIC SHOCK 10/31/2018 NIKOLE BUENROSTRO MD, Ot R80.9 PROTEINURIA, UNSPECIFIED 10/31/2018 NIKOLE BUENROSTRO MD Ot S39.92XA UNSPECIFIED INJURY OF LOWER BACK, INITIA 10/31/2018 NIKOLE BUENROSTRO MD Ot W22.8XXA STRIKING AGAINST OR STRUCK BY OTHER OBJE 10/31/2018 NIKOLE BUENROSTRO MD Ot Y92.[address] IN UNSP NON-INSTITUT (PRIVATE 10/31/2018 NIKOLE BUENROSTRO MD Ot Z86.73 PRSNL HX OF TIA (TIA), AND CEREB INFRC W 10/31/2018 NIKOLE BUENROSTRO MD Ot Z87.891 PERSONAL HISTORY OF NICOTINE DEPENDENCE 10/31/2018 NIKOLE BUENROSTRO MD Ot A41.9 SEPSIS, UNSPECIFIED ORGANISM 10/31/2018 NIKOLE BUENROSTRO MD Ot B37.2 CANDIDIASIS OF SKIN AND NAIL 10/31/2018 NIKOLE BUENROSTRO MD, Ot E03.9 HYPOTHYROIDISM, UNSPECIFIED 10/31/2018 NIKOLE BUENROSTRO MD, Ot E11.21 TYPE 2 DIABETES MELLITUS WITH DIABETIC N 10/31/2018 NIKOLE BUENROSTRO MD, Ot E11.42 TYPE 2 DIABETES MELLITUS WITH DIABETIC P 10/31/2018 NIKOLE BUENROSTRO MD, Ot E11.65 TYPE 2 DIABETES MELLITUS WITH HYPERGLYCE 10/31/2018 NIKOLE BUENROSTRO MD, Ot E66.2 MORBID (SEVERE) OBESITY WITH ALVEOLAR HY 10/31/2018 NIKOLE BUENROSTRO MD, Ot E78.00 PURE HYPERCHOLESTEROLEMIA, UNSPECIFIED 10/31/2018 NIKOLE BUENROSTRO MD, Ot I12.9 HYPERTENSIVE CHRONIC KIDNEY DISEASE W ST 10/31/2018 NIKOLE BUENROSTRO MD, Ot I25.10 ATHSCL HEART DISEASE OF [place] CORONARY 10/31/2018 NIKOLE BUENROSTRO MD, Ot I25.2 OLD MYOCARDIAL INFARCTION 10/31/2018 NIKOLE BUENROSTRO MD Ot I42.0 DILATED CARDIOMYOPATHY 10/31/2018 NIKOLE BUENROSTRO MD Ot I50.22 CHRONIC SYSTOLIC (CONGESTIVE) HEART FAIL 10/31/2018 NIKOLE BUENROSTRO MD Ot I87.2 VENOUS INSUFFICIENCY (CHRONIC) (PERIPHER 10/31/2018 NIKOLE BUENROSTRO MD, Ot I87.8 OTHER SPECIFIED DISORDERS OF VEINS 10/31/2018 NIKOLE BUENROSTRO MD, Ot J44.9 CHRONIC OBSTRUCTIVE PULMONARY DISEASE, U 10/31/2018 NIKOLE BUENROSTRO MD Ot K21.9 GASTRO-ESOPHAGEAL REFLUX DISEASE WITHOUT 10/31/2018 NIKOLE BUENROSTRO MD Ot L03.311 CELLULITIS OF ABDOMINAL WALL 10/31/2018 NIKOLE BUENROSTRO MD, Ot M54.9 DORSALGIA, UNSPECIFIED 10/31/2018 NIKOLE BUENROSTRO MD, Ot M79.3 PANNICULITIS, UNSPECIFIED 10/31/2018 NIKOLE BUENROSTRO MD, Ot N17.9 ACUTE KIDNEY FAILURE, UNSPECIFIED 10/31/2018 NIKOLE BUENROSTRO MD Ot N18.2 CHRONIC KIDNEY DISEASE, STAGE 2 (MILD) 10/31/2018 NIKOLE BUENROSTRO MD Ot N39.0 URINARY TRACT INFECTION, SITE NOT SPECIF 10/31/2018 NIKOLE BUENROSTRO MD, Ot R65.21 SEVERE SEPSIS WITH SEPTIC SHOCK 10/31/2018 NIKOLE BUENROSTRO MD Ot R80.9 PROTEINURIA, UNSPECIFIED 10/31/2018 NIKOLE BUENROSTRO MD, Ot S39.92XA UNSPECIFIED INJURY OF LOWER BACK, INITIA 10/31/2018 NIKOLE BUENROSTRO MD, Ot W22.8XXA STRIKING AGAINST OR STRUCK BY OTHER OBJE 10/31/2018 NIKOLE BUENROSTRO MD, Ot Y92.[address] [facility] NON-[facility]IT[facility] (PRIVATE 10/31/2018 NIKOLE BUENROSTRO MD, Ot Z86.73 PRSNL HX OF TIA (TIA), AND CEREB INFRC W 10/31/2018 NIKOLE BUENROSTRO MD, Ot Z87.891 PERSONAL HISTORY OF NICOTINE DEPENDENCE 11/01/2018 NIKOLE BUENROSTRO MD, Ot A41.9 SEPSIS, UNSPECIFIED ORGANISM 11/01/2018 NIKOLE BUENROSTRO MD, Ot B37.2 CANDIDIASIS OF SKIN AND NAIL 11/01/2018 NIKOLE BUENROSTRO MD Ot E03.9 HYPOTHYROIDISM, UNSPECIFIED 11/01/2018 NIKOLE BUENROSTRO MD Ot E11.21 TYPE 2 DIABETES MELLITUS WITH DIABETIC N 11/01/2018 NIKOLE BUENROSTRO MD, Ot E11.42 TYPE 2 DIABETES MELLITUS WITH DIABETIC P 11/01/2018 NIKOLE BUENROSTRO MD Ot E11.65 TYPE 2 DIABETES MELLITUS WITH HYPERGLYCE 11/01/2018 NIKOLE BUENROSTRO MD Ot E66.2 MORBID (SEVERE) OBESITY WITH ALVEOLAR HY 11/01/2018 NIKOLE BUENROSTRO MD Ot E78.00 PURE HYPERCHOLESTEROLEMIA, UNSPECIFIED 11/01/2018 NIKOLE BUENROSTRO MD, Ot I12.9 HYPERTENSIVE CHRONIC KIDNEY DISEASE W ST 11/01/2018 NIKOLE BUENROSTRO MD, Ot I25.10 ATHSCL HEART DISEASE OF [place] CORONARY 11/01/2018 NIKOLE BUENROSTRO MD, Ot I25.2 OLD MYOCARDIAL INFARCTION 11/01/2018 NIKOLE BUNEROSTRO MD Ot I42.0 DILATED CARDIOMYOPATHY 11/01/2018 NIKOLE BUENROSTRO MD, Ot I50.22 CHRONIC SYSTOLIC (CONGESTIVE) HEART FAIL 11/01/2018 NIKOLE BUENROSTRO MD, Ot I87.2 VENOUS INSUFFICIENCY (CHRONIC) (PERIPHER 11/01/2018 NIKOLE BUENROSTRO MD, Ot I87.8 OTHER SPECIFIED DISORDERS OF VEINS 11/01/2018 NIKOLE BUENROSTRO MD, Ot J44.9 CHRONIC OBSTRUCTIVE PULMONARY DISEASE, U 11/01/2018 NIKOLE BUENROSTRO MD, Ot K21.9 GASTRO-ESOPHAGEAL REFLUX DISEASE WITHOUT 11/01/2018 NIKOLE BUENROSTRO MD, Ot L03.311 CELLULITIS OF ABDOMINAL WALL 11/01/2018 NIKOLE BUENROSTRO MD, Ot M54.9 DORSALGIA, UNSPECIFIED 11/01/2018 NIKOLE BUENROSTRO MD, Ot M79.3 PANNICULITIS, UNSPECIFIED 11/01/2018 NIKOLE BUENROSTRO MD, Ot N17.9 ACUTE KIDNEY FAILURE, UNSPECIFIED 11/01/2018 NIKOLE BUENROSTRO MD, Ot N18.2 CHRONIC KIDNEY DISEASE, STAGE 2 (MILD) 11/01/2018 NIKOLE BUENROSTRO MD, Ot N39.0 URINARY TRACT INFECTION, SITE NOT SPECIF 11/01/2018 NIKOLE BUENROSTRO MD Ot R65.21 SEVERE SEPSIS WITH SEPTIC SHOCK 11/01/2018 NIKOLE BUENROSTRO MD Ot R80.9 PROTEINURIA, UNSPECIFIED 11/01/2018 NIKOLE BUENROSTRO MD, Ot S39.92XA UNSPECIFIED INJURY OF LOWER BACK, INITIA 11/01/2018 NIKOLE BUENROSTRO MD, Ot W22.8XXA STRIKING AGAINST OR STRUCK BY OTHER OBJE 11/01/2018 NIKOLE BUENROSTRO MD Ot Y92.[address] [facility] [address] IN [facility] NON-INSTITUT (PRIVATE 11/01/2018 NIKOLE BUENROSTRO MD, Ot Z86.73 PRSNL HX OF TIA (TIA), AND CEREB INFRC W 11/01/2018 NIKOLE BUENROSTRO MD, Ot Z87.891 PERSONAL HISTORY OF NICOTINE DEPENDENCE 11/01/2018 NIKOLE BUENROSTRO MD, Ot A41.9 SEPSIS, UNSPECIFIED ORGANISM 11/01/2018 NIKOLE BUENROSTRO MD, Ot B37.2 CANDIDIASIS OF SKIN AND NAIL 11/01/2018 NIKOLE BUENROSTRO MD Ot E03.9 HYPOTHYROIDISM, UNSPECIFIED 11/01/2018 SANDNESS MD, NIKOLE M Ot E11.21 TYPE 2 DIABETES MELLITUS WITH DIABETIC N 11/01/2018 NIKOLE BUENROSTRO MD, Ot E11.42 TYPE 2 DIABETES MELLITUS WITH DIABETIC P 11/01/2018 NIKOLE BUENROSTRO MD, Ot E11.65 TYPE 2 DIABETES MELLITUS WITH HYPERGLYCE 11/01/2018 NIKOLE BUENROSTRO MD Ot E66.2 MORBID (SEVERE) OBESITY WITH ALVEOLAR HY 11/01/2018 NIKOLE BUENROSTRO MD, Ot E78.00 PURE HYPERCHOLESTEROLEMIA, UNSPECIFIED 11/01/2018 NIKOLE BUENROSTRO MD, Ot I12.9 HYPERTENSIVE CHRONIC KIDNEY DISEASE W ST 11/01/2018 NIKOLE BUENROSTRO MD, Ot I25.10 ATHSCL HEART DISEASE OF [place] CORONARY 11/01/2018 NIKOLE BUENROSTRO MD, Ot I25.2 OLD MYOCARDIAL INFARCTION 11/01/2018 NIKOLE BUENROSTRO MD, Ot I42.0 DILATED CARDIOMYOPATHY 11/01/2018 NIKOLE BUENROSTRO MD Ot I50.22 CHRONIC SYSTOLIC (CONGESTIVE) HEART FAIL 11/01/2018 NIKOLE BUENROSTRO MD Ot I87.2 VENOUS INSUFFICIENCY (CHRONIC) (PERIPHER 11/01/2018 NIKOLE BUENROSTRO MD, Ot I87.8 OTHER SPECIFIED DISORDERS OF VEINS 11/01/2018 NIKOLE BUENROSTRO MD Ot J44.9 CHRONIC OBSTRUCTIVE PULMONARY DISEASE, U 11/01/2018 NIKOLE BUENROSTRO MD, Ot K21.9 GASTRO-ESOPHAGEAL REFLUX DISEASE WITHOUT 11/01/2018 NIKOLE BUENROSTRO MD Ot L03.311 CELLULITIS OF ABDOMINAL WALL 11/01/2018 NIKOLE BUENROSTRO MD Ot M54.9 DORSALGIA, UNSPECIFIED 11/01/2018 NIKOLE BUENROSTRO MD Ot M79.3 PANNICULITIS, UNSPECIFIED 11/01/2018 NIKOLE BUENROSTRO MD Ot N17.9 ACUTE KIDNEY FAILURE, UNSPECIFIED 11/01/2018 NIKOLE BUENROSTRO MD, Ot N18.2 CHRONIC KIDNEY DISEASE, STAGE 2 (MILD) 11/01/2018 NIKOLE BUENROSTRO MD Ot N39.0 URINARY TRACT INFECTION, SITE NOT SPECIF 11/01/2018 NIKOLE BUENROSTRO MD Ot R65.21 SEVERE SEPSIS WITH SEPTIC SHOCK 11/01/2018 NIKOLE BUENROSTRO MD Ot R80.9 PROTEINURIA, UNSPECIFIED 11/01/2018 NIKOLE BUENROSTRO MD, Ot S39.92XA UNSPECIFIED INJURY OF LOWER BACK, INITIA 11/01/2018 NIKOLE BUENROSTRO MD, Ot W22.8XXA STRIKING AGAINST OR STRUCK BY OTHER OBJE 11/01/2018 NIKOLE BUENROSTRO MD, Ot Y92.[address] [facility] 11/01/2018 NIKOLE BUENROSTRO MD, Ot Z86.73 PRSNL HX OF TIA (TIA), AND CEREB INFRC W 11/01/2018 NIKOLE BUENROSTRO MD, Ot Z87.891 PERSONAL HISTORY OF NICOTINE DEPENDENCE 11/02/2018 NIKOLE BUENROSTRO MD, Ot A41.9 SEPSIS, UNSPECIFIED ORGANISM 11/02/2018 NIKOLE BUENROSTRO MD, Ot B37.2 CANDIDIASIS OF SKIN AND NAIL 11/02/2018 NIKOLE BUENROSTRO MD Ot E03.9 HYPOTHYROIDISM, UNSPECIFIED 11/02/2018 NIKOLE BUENROSTRO MD Ot E11.21 TYPE 2 DIABETES MELLITUS WITH DIABETIC N 11/02/2018 NIKOLE BUENROSTRO MD Ot E11.42 TYPE 2 DIABETES MELLITUS WITH DIABETIC P 11/02/2018 NIKOLE BUENROSTRO MD Ot E11.65 TYPE 2 DIABETES MELLITUS WITH HYPERGLYCE 11/02/2018 NIKOLE BUENROSTRO MD Ot E66.2 MORBID (SEVERE) OBESITY WITH ALVEOLAR HY 11/02/2018 NIKOLE BUENROSTRO MD Ot E78.00 PURE HYPERCHOLESTEROLEMIA, UNSPECIFIED 11/02/2018 NIKOLE BUENROSTRO MD Ot I12.9 HYPERTENSIVE CHRONIC KIDNEY DISEASE W ST 11/02/2018 NIKOLE BUENROSTRO MD, Ot I25.10 ATHSCL HEART DISEASE OF [place] CORONARY 11/02/2018 NIKOLE BUENROSTRO MD, Ot I25.2 OLD MYOCARDIAL INFARCTION 11/02/2018 NIKOLE BUENROSTRO MD, Ot I42.0 DILATED CARDIOMYOPATHY 11/02/2018 NIKOLE BUENROSTRO MD, Ot I50.22 CHRONIC SYSTOLIC (CONGESTIVE) HEART FAIL 11/02/2018 NIKOLE BUENROSTRO MD Ot I87.2 VENOUS INSUFFICIENCY (CHRONIC) (PERIPHER 11/02/2018 SANDNESS MD, NIKOLE M Ot I87.8 OTHER SPECIFIED DISORDERS OF VEINS 11/02/2018 NIKOLE BUENROSTRO MD, Ot J44.9 CHRONIC OBSTRUCTIVE PULMONARY DISEASE, U 11/02/2018 NIKOLE BUENROSTRO MD, Ot K21.9 GASTRO-ESOPHAGEAL REFLUX DISEASE WITHOUT 11/02/2018 NIKOLE BUENROSTRO MD Ot L03.311 CELLULITIS OF ABDOMINAL WALL 11/02/2018 NIKOLE BUENROSTRO MD, Ot M54.9 DORSALGIA, UNSPECIFIED 11/02/2018 NIKOLE BUENROSTRO MD, Ot M79.3 PANNICULITIS, UNSPECIFIED 11/02/2018 NIKOLE BUENROSTRO MD, Ot N17.9 ACUTE KIDNEY FAILURE, UNSPECIFIED 11/02/2018 NIKOLE BUENROSTRO MD, Ot N18.2 CHRONIC KIDNEY DISEASE, STAGE 2 (MILD) 11/02/2018 NIKOLE BUENROSTRO MD, Ot N39.0 URINARY TRACT INFECTION, SITE NOT SPECIF 11/02/2018 NIKOLE BUENROSTRO MD Ot R65.21 SEVERE SEPSIS WITH SEPTIC SHOCK 11/02/2018 NIKOLE BUENROSTRO MD Ot R80.9 PROTEINURIA, UNSPECIFIED 11/02/2018 NIKOLE BUENROSTRO MD Ot S39.92XA UNSPECIFIED INJURY OF LOWER BACK, INITIA 11/02/2018 NIKOLE BUENROSTRO MD Ot W22.8XXA STRIKING AGAINST OR STRUCK BY OTHER OBJE 11/02/2018 NIKOLE BUENROSTRO MD Ot Y92.[address] [facility] 11/02/2018 NIKOLE BUENROSTRO MD Ot Z86.73 PRSNL HX OF TIA (TIA), AND CEREB INFRC W 11/02/2018 NIKOLE BUENROSTRO MD Ot Z87.891 PERSONAL HISTORY OF NICOTINE DEPENDENCE 11/03/2018 NIKOLE BUENROSTRO MD Ot A41.9 SEPSIS, UNSPECIFIED ORGANISM 11/03/2018 NIKOLE BUENROSTRO MD Ot B37.2 CANDIDIASIS OF SKIN AND NAIL 11/03/2018 NIKOLE BUENROSTRO MD Ot E03.9 HYPOTHYROIDISM, UNSPECIFIED 11/03/2018 NIKOLE BUENROSTRO MD Ot E11.21 TYPE 2 DIABETES MELLITUS WITH DIABETIC N 11/03/2018 NIKOLE BUENROSTRO MD Ot E11.42 TYPE 2 DIABETES MELLITUS WITH DIABETIC P 11/03/2018 NIKOLE BUENROSTRO MD Ot E11.65 TYPE 2 DIABETES MELLITUS WITH HYPERGLYCE 11/03/2018 NIKOLE BUENROSTRO MD Ot E66.2 MORBID (SEVERE) OBESITY WITH ALVEOLAR HY 11/03/2018 NIKOLE BUENROSTRO MD Ot E78.00 PURE HYPERCHOLESTEROLEMIA, UNSPECIFIED 11/03/2018 NIKOLE BUENROSTRO MD Ot I12.9 HYPERTENSIVE CHRONIC KIDNEY DISEASE W ST 11/03/2018 NIKOLE BUENROSTRO MD, Ot I25.10 ATHSCL HEART DISEASE OF [place] CORONARY 11/03/2018 NIKOLE BUENROSTRO MD, Ot I25.2 OLD MYOCARDIAL INFARCTION 11/03/2018 NIKOLE BUENROSTRO MD Ot I42.0 DILATED CARDIOMYOPATHY 11/03/2018 NIKOLE BUENROSTRO MD Ot I50.22 CHRONIC SYSTOLIC (CONGESTIVE) HEART FAIL 11/03/2018 NIKOLE BUENROSTRO MD Ot I87.2 VENOUS INSUFFICIENCY (CHRONIC) (PERIPHER 11/03/2018 NIKOLE BUENROSTRO MD Ot I87.8 OTHER SPECIFIED DISORDERS OF VEINS 11/03/2018 NIKOLE BUENROSTRO MD Ot J44.9 CHRONIC OBSTRUCTIVE PULMONARY DISEASE, U 11/03/2018 NIKOLE BUENROSTRO MD Ot K21.9 GASTRO-ESOPHAGEAL REFLUX DISEASE WITHOUT 11/03/2018 NIKOLE BUENROSTRO MD Ot L03.311 CELLULITIS OF ABDOMINAL WALL 11/03/2018 NIKOLE BUENROSTRO MD Ot M54.9 DORSALGIA, UNSPECIFIED 11/03/2018 NIKOLE BUENROSTRO MD Ot M79.3 PANNICULITIS, UNSPECIFIED 11/03/2018 NIKOLE BUENROSTRO MD Ot N17.9 ACUTE KIDNEY FAILURE, UNSPECIFIED 11/03/2018 NIKOLE BUENROSTRO MD Ot N18.2 CHRONIC KIDNEY DISEASE, STAGE 2 (MILD) 11/03/2018 NIKOLE BUENROSTRO MD Ot N39.0 URINARY TRACT INFECTION, SITE NOT SPECIF 11/03/2018 NIKOLE BUENROSTRO MD Ot R65.21 SEVERE SEPSIS WITH SEPTIC SHOCK 11/03/2018 NIKOLE BUENROSTRO MD Ot R80.9 PROTEINURIA, UNSPECIFIED 11/03/2018 NIKOLE BUENROSTRO MD Ot S39.92XA UNSPECIFIED INJURY OF LOWER BACK, INITIA 11/03/2018 NIKOLE BUENROSTRO MD, Ot W22.8XXA STRIKING AGAINST OR STRUCK BY OTHER OBJE 11/03/2018 NIKOLE BUENROSTRO MD, Ot Y92.[address] IN [facility] NON-[facility]IT[facility] (PRIVATE 11/03/2018 NIKOLE BUENROSTRO MD, Ot Z86.73 PRSNL HX OF TIA (TIA), AND CEREB INFRC W 11/03/2018 NIKOLE BUENROSTRO MD, Ot Z87.891 PERSONAL HISTORY OF NICOTINE DEPENDENCE 11/03/2018 NIKOLE BUENROSTRO MD, Ot A41.9 SEPSIS, UNSPECIFIED ORGANISM 11/03/2018 NIKOLE BUENROSTRO MD, Ot B37.2 CANDIDIASIS OF SKIN AND NAIL 11/03/2018 NIKOLE BUENROSTRO MD, Ot E03.9 HYPOTHYROIDISM, UNSPECIFIED 11/03/2018 NIKOLE BUENROSTRO MD Ot E11.21 TYPE 2 DIABETES MELLITUS WITH DIABETIC N 11/03/2018 NIKOLE BUENROSTRO MD Ot E11.42 TYPE 2 DIABETES MELLITUS WITH DIABETIC P 11/03/2018 NIKOLE BUENROSTRO MD Ot E11.65 TYPE 2 DIABETES MELLITUS WITH HYPERGLYCE 11/03/2018 NIKOLE BUENROSTRO MD Ot E66.2 MORBID (SEVERE) OBESITY WITH ALVEOLAR HY 11/03/2018 NIKOLE BUENROSTRO MD Ot E78.00 PURE HYPERCHOLESTEROLEMIA, UNSPECIFIED 11/03/2018 NIKOLE BUENROSTRO MD Ot I12.9 HYPERTENSIVE CHRONIC KIDNEY DISEASE W ST 11/03/2018 NIKOLE BUENROTSRO MD, Ot I25.10 ATHSCL HEART DISEASE OF [place] CORONARY 11/03/2018 NIKOLE BUENROSTRO MD Ot I25.2 OLD MYOCARDIAL INFARCTION 11/03/2018 NIKOLE BUENROSTRO MD Ot I42.0 DILATED CARDIOMYOPATHY 11/03/2018 NIKOLE BUENROSTRO MD, Ot I50.22 CHRONIC SYSTOLIC (CONGESTIVE) HEART FAIL 11/03/2018 NIKOLE BUENROSTRO MD Ot I87.2 VENOUS INSUFFICIENCY (CHRONIC) (PERIPHER 11/03/2018 NIKOLE BUENROSTRO MD Ot I87.8 OTHER SPECIFIED DISORDERS OF VEINS 11/03/2018 NIKOLE BUENROSTRO MD, Ot J44.9 CHRONIC OBSTRUCTIVE PULMONARY DISEASE, U 11/03/2018 NIKOLE BUENROSTRO MD, Ot K21.9 GASTRO-ESOPHAGEAL REFLUX DISEASE WITHOUT 11/03/2018 NIKOLE BUENROSTRO MD Ot L03.311 CELLULITIS OF ABDOMINAL WALL 11/03/2018 NIKOLE BUENROSTRO MD, Ot M54.9 DORSALGIA, UNSPECIFIED 11/03/2018 NIKOLE BUENROSTRO MD, Ot M79.3 PANNICULITIS, UNSPECIFIED 11/03/2018 NIKOLE BUENROSTRO MD, Ot N17.9 ACUTE KIDNEY FAILURE, UNSPECIFIED 11/03/2018 NIKOLE BUENROSTRO MD, Ot N18.2 CHRONIC KIDNEY DISEASE, STAGE 2 (MILD) 11/03/2018 NIKOLE BUENROSTRO MD, Ot N39.0 URINARY TRACT INFECTION, SITE NOT SPECIF 11/03/2018 NIKOLE BUENROSTRO MD, Ot R65.21 SEVERE SEPSIS WITH SEPTIC SHOCK 11/03/2018 NIKOLE BUENROSTRO MD, Ot R80.9 PROTEINURIA, UNSPECIFIED 11/03/2018 NIKOLE BUENROSTRO MD Ot S39.92XA UNSPECIFIED INJURY OF LOWER BACK, INITIA 11/03/2018 NIKOLE BUENROSTRO MD Ot W22.8XXA STRIKING AGAINST OR STRUCK BY OTHER OBJE 11/03/2018 NIKOLE BUENROSTRO MD Ot Y92.[address] IN [facility] NON-INSTITUT (PRIVATE 11/03/2018 NIKOLE BUENROSTRO MD, Ot Z86.73 PRSNL HX OF TIA (TIA), AND CEREB INFRC W 11/03/2018 NIKOLE BUENROSTRO MD, Ot Z87.891 PERSONAL HISTORY OF NICOTINE DEPENDENCE 11/04/2018 NIKOLE BUENROSTRO MD Ot A41.9 SEPSIS, UNSPECIFIED ORGANISM 11/04/2018 NIKOLE BUENROSTRO MD Ot B37.2 CANDIDIASIS OF SKIN AND NAIL 11/04/2018 NIKOLE BUENROSTRO MD Ot E03.9 HYPOTHYROIDISM, UNSPECIFIED 11/04/2018 NIKOLE BUENROSTRO MD Ot E11.21 TYPE 2 DIABETES MELLITUS WITH DIABETIC N 11/04/2018 NIKOLE BUENROSTRO MD Ot E11.42 TYPE 2 DIABETES MELLITUS WITH DIABETIC P 11/04/2018 NIKOLE BUENROSTRO MD, Ot E11.65 TYPE 2 DIABETES MELLITUS WITH HYPERGLYCE 11/04/2018 NIKOLE BUENROSTRO MD Ot E66.2 MORBID (SEVERE) OBESITY WITH ALVEOLAR HY 11/04/2018 NIKOLE BUENROSTRO MD Ot E78.00 PURE HYPERCHOLESTEROLEMIA, UNSPECIFIED 11/04/2018 NIKOLE BUENROSTRO MD Ot I12.9 HYPERTENSIVE CHRONIC KIDNEY DISEASE W ST 11/04/2018 NIKOLE BUENROSTRO MD Ot I25.10 ATHSCL HEART DISEASE OF [place] CORONARY 11/04/2018 NIKOLE BUENROSTRO MD, Ot I25.2 OLD MYOCARDIAL INFARCTION 11/04/2018 NIKOLE BUENROSTRO MD Ot I42.0 DILATED CARDIOMYOPATHY 11/04/2018 NIKOLE BUENROSTRO MD Ot I50.22 CHRONIC SYSTOLIC (CONGESTIVE) HEART FAIL 11/04/2018 NIKOLE BUENROSTRO MD Ot I87.2 VENOUS INSUFFICIENCY (CHRONIC) (PERIPHER 11/04/2018 NIKOLE BUENROSTRO MD Ot I87.8 OTHER SPECIFIED DISORDERS OF VEINS 11/04/2018 NIKOLE BUENROSTRO MD Ot J44.9 CHRONIC OBSTRUCTIVE PULMONARY DISEASE, U 11/04/2018 NIKOLE BUENROSTRO MD Ot K21.9 GASTRO-ESOPHAGEAL REFLUX DISEASE WITHOUT 11/04/2018 NIKOLE BUENROSTRO MD Ot L03.311 CELLULITIS OF ABDOMINAL WALL 11/04/2018 NIKOLE BUENROSTRO MD Ot M54.9 DORSALGIA, UNSPECIFIED 11/04/2018 NIKOLE BUENROSTRO MD Ot M79.3 PANNICULITIS, UNSPECIFIED 11/04/2018 NIKOLE BUENROSTRO MD Ot N17.9 ACUTE KIDNEY FAILURE, UNSPECIFIED 11/04/2018 NIKOLE BUENROSTRO MD Ot N18.2 CHRONIC KIDNEY DISEASE, STAGE 2 (MILD) 11/04/2018 NIKOLE BUENROSTRO MD Ot N39.0 URINARY TRACT INFECTION, SITE NOT SPECIF 11/04/2018 NIKOLE BUENROSTRO MD Ot R65.21 SEVERE SEPSIS WITH SEPTIC SHOCK 11/04/2018 NIKOLE BUENROSTRO MD Ot R80.9 PROTEINURIA, UNSPECIFIED 11/04/2018 NIKOLE BUENROSTRO MD Ot S39.92XA UNSPECIFIED INJURY OF LOWER BACK, INITIA 11/04/2018 NIKOLE BUENROSTRO MD Ot W22.8XXA STRIKING AGAINST OR STRUCK BY OTHER OBJE 11/04/2018 NIKOLE BUENROSTRO MD, Ot Y92.[address] IN [facility] NON-INSTITUT (PRIVATE 11/04/2018 NIKOLE BUENROSTRO MD, Ot Z86.73 PRSNL HX OF TIA (TIA), AND CEREB INFRC W 11/04/2018 NIKOLE BUENROSTRO MD, Ot Z87.891 PERSONAL HISTORY OF NICOTINE DEPENDENCE 11/05/2018 NIKOLE BUENROSTRO MD, Ot A41.9 SEPSIS, UNSPECIFIED ORGANISM 11/05/2018 NIKOLE BUENROSTRO MD, Ot B37.2 CANDIDIASIS OF SKIN AND NAIL 11/05/2018 NIKOLE BUENROSTRO MD, Ot E03.9 HYPOTHYROIDISM, UNSPECIFIED 11/05/2018 NIKOLE BUENROSTRO MD, Ot E11.21 TYPE 2 DIABETES MELLITUS WITH DIABETIC N 11/05/2018 NIKOLE BUENROSTRO MD Ot E11.42 TYPE 2 DIABETES MELLITUS WITH DIABETIC P 11/05/2018 NIKOLE BUENROSTRO MD, Ot E11.65 TYPE 2 DIABETES MELLITUS WITH HYPERGLYCE 11/05/2018 NIKOLE BUENROSTRO MD Ot E66.2 MORBID (SEVERE) OBESITY WITH ALVEOLAR HY 11/05/2018 NIKOLE BUENROSTRO MD, Ot E78.00 PURE HYPERCHOLESTEROLEMIA, UNSPECIFIED 11/05/2018 NIKOLE BUENROSTRO MD, Ot I12.9 HYPERTENSIVE CHRONIC KIDNEY DISEASE W ST 11/05/2018 NIKOLE BUENROSTRO MD, Ot I25.10 ATHSCL HEART DISEASE OF [place] CORONARY 11/05/2018 NIKOLE BUENROSTRO MD, Ot I25.2 OLD MYOCARDIAL INFARCTION 11/05/2018 NIKOLE BUENROSTRO MD Ot I42.0 DILATED CARDIOMYOPATHY 11/05/2018 NIKOLE BUENROSTRO MD Ot I50.22 CHRONIC SYSTOLIC (CONGESTIVE) HEART FAIL 11/05/2018 NIKOLE BUENROSTRO MD Ot I87.2 VENOUS INSUFFICIENCY (CHRONIC) (PERIPHER 11/05/2018 NIKOLE BUENROSTRO MD, Ot I87.8 OTHER SPECIFIED DISORDERS OF VEINS 11/05/2018 NIKOLE BUENROSTRO MD, Ot J44.9 CHRONIC OBSTRUCTIVE PULMONARY DISEASE, U 11/05/2018 NIKOLE BUENROSTRO MD, Ot K21.9 GASTRO-ESOPHAGEAL REFLUX DISEASE WITHOUT 11/05/2018 NIKOLE BUENROSTRO MD Ot L03.311 CELLULITIS OF ABDOMINAL WALL 11/05/2018 NIKOLE BUENROSTRO MD, Ot M54.9 DORSALGIA, UNSPECIFIED 11/05/2018 NIKOLE BUENROSTRO MD, Ot M79.3 PANNICULITIS, UNSPECIFIED 11/05/2018 NIKOLE BUENROSTRO MD, Ot N17.9 ACUTE KIDNEY FAILURE, UNSPECIFIED 11/05/2018 NIKOLE BUENROSTRO MD, Ot N18.2 CHRONIC KIDNEY DISEASE, STAGE 2 (MILD) 11/05/2018 NIKOLE BUENROSTRO MD, Ot N39.0 URINARY TRACT INFECTION, SITE NOT SPECIF 11/05/2018 NIKOLE BUENROSTRO MD, Ot R65.21 SEVERE SEPSIS WITH SEPTIC SHOCK 11/05/2018 NIKOLE BUENROSTRO MD, Ot R80.9 PROTEINURIA, UNSPECIFIED 11/05/2018 NIKOLE BUENROSTRO MD, Ot S39.92XA UNSPECIFIED INJURY OF LOWER BACK, INITIA 11/05/2018 NIKOLE BUENROSTRO MD, Ot W22.8XXA STRIKING AGAINST OR STRUCK BY OTHER OBJE 11/05/2018 NIKOLE BUENROSTRO MD Ot Y92.[address] IN [facility] NON-INSTITUT (PRIVATE 11/05/2018 NIKOLE BUENROSTRO MD, Ot Z86.73 PRSNL HX OF TIA (TIA), AND CEREB INFRC W 11/05/2018 NIKOLE BUENROSTRO MD, Ot Z87.891 PERSONAL HISTORY OF NICOTINE DEPENDENCE 11/05/2018 NIKOLE BUENROSTRO MD, Ot A41.9 SEPSIS, UNSPECIFIED ORGANISM 11/05/2018 NIKOLE BUENROSTRO MD, Ot B37.2 CANDIDIASIS OF SKIN AND NAIL 11/05/2018 NIKOLE BUENROSTRO MD Ot E03.9 HYPOTHYROIDISM, UNSPECIFIED 11/05/2018 NIKOLE BUENROSTRO MD, Ot E11.21 TYPE 2 DIABETES MELLITUS WITH DIABETIC N 11/05/2018 NIKOLE BUENROSTRO MD, Ot E11.42 TYPE 2 DIABETES MELLITUS WITH DIABETIC P 11/05/2018 NIKOLE BUENROSTRO MD, Ot E11.65 TYPE 2 DIABETES MELLITUS WITH HYPERGLYCE 11/05/2018 NIKOLE BUENROSTRO MD, Ot E66.2 MORBID (SEVERE) OBESITY WITH ALVEOLAR HY 11/05/2018 NIKOLE BUENROSTRO MD, Ot E78.00 PURE HYPERCHOLESTEROLEMIA, UNSPECIFIED 11/05/2018 NIKOLE BUENROSTRO MD, Ot I12.9 HYPERTENSIVE CHRONIC KIDNEY DISEASE W ST 11/05/2018 NIKOLE BUENROSTRO MD, Ot I25.10 ATHSCL HEART DISEASE OF [place] CORONARY 11/05/2018 NIKOLE BUENROSTRO MD, Ot I25.2 OLD MYOCARDIAL INFARCTION 11/05/2018 NIKOLE BUENROSTRO MD Ot I42.0 DILATED CARDIOMYOPATHY 11/05/2018 NIKOLE BUENROSTRO MD, Ot I50.22 CHRONIC SYSTOLIC (CONGESTIVE) HEART FAIL 11/05/2018 NIKOLE BUENROSTRO MD, Ot I87.2 VENOUS INSUFFICIENCY (CHRONIC) (PERIPHER 11/05/2018 NIKOLE BUENROSTRO MD, Ot I87.8 OTHER SPECIFIED DISORDERS OF VEINS 11/05/2018 NIKOLE BUENROSTRO MD, Ot J44.9 CHRONIC OBSTRUCTIVE PULMONARY DISEASE, U 11/05/2018 NIKOLE BUENROSTRO MD, Ot K21.9 GASTRO-ESOPHAGEAL REFLUX DISEASE WITHOUT 11/05/2018 NIKOLE BUENROSTRO MD Ot L03.311 CELLULITIS OF ABDOMINAL WALL 11/05/2018 NIKOLE BUENROSTRO MD Ot M54.9 DORSALGIA, UNSPECIFIED 11/05/2018 NIKOLE BUENROSTRO MD, Ot M79.3 PANNICULITIS, UNSPECIFIED 11/05/2018 NIKOLE BUENROSTRO MD Ot N17.9 ACUTE KIDNEY FAILURE, UNSPECIFIED 11/05/2018 NIKOLE BUENROSTRO MD Ot N18.2 CHRONIC KIDNEY DISEASE, STAGE 2 (MILD) 11/05/2018 NIKOLE BUENROSTRO MD Ot N39.0 URINARY TRACT INFECTION, SITE NOT SPECIF 11/05/2018 NIKOLE BUENROSTRO MD Ot R65.21 SEVERE SEPSIS WITH SEPTIC SHOCK 11/05/2018 NIKOLE BUENROSTRO MD Ot R80.9 PROTEINURIA, UNSPECIFIED 11/05/2018 NIKOLE BUENROSTRO MD, Ot S39.92XA UNSPECIFIED INJURY OF LOWER BACK, INITIA 11/05/2018 NIKOLE BUENROSTRO MD Ot W22.8XXA STRIKING AGAINST OR STRUCK BY OTHER OBJE 11/05/2018 NIKOLE BUENROSTRO MD Ot Y92.[address] IN [facility] NON-INSTITUT (PRIVATE 11/05/2018 CHITRA LAWS, NIKOLE Coyle Ot Z86.73 PRSNL HX OF TIA (TIA), AND CEREB INFRC W 11/05/2018 NIKOLE BUENROSTRO MD Ot Z87.891 PERSONAL HISTORY OF NICOTINE DEPENDENCE 12/04/2018 REGINA LAWS FACC, ALI FACP CCDS Ot E66.9 OBESITY, UNSPECIFIED 12/04/2018 REGINA LAWS FACC, ALI FACP CCDS Ot G47.33 OBSTRUCTIVE SLEEP APNEA (ADULT) (PEDIATR 12/04/2018 REGINA LAWS FACC, ALI FACP CCDS Ot I11.0 HYPERTENSIVE HEART DISEASE WITH HEART FA 12/04/2018 REGINA VALADEZC, ALI FACP CCDS Ot I42.0 DILATED CARDIOMYOPATHY 12/04/2018 REGINA LAWS FACC, ALI FACP CCDS Ot I50.23 ACUTE ON CHRONIC SYSTOLIC (CONGESTIVE) H 12/04/2018 REGINA LAWS FACC, ALI FACP CCDS Ot R06.02 SHORTNESS OF BREATH 12/04/2018 REGINA LAWS FACC, ALI FACP CCDS Ot Z68.43 BODY MASS INDEX (BMI) 50-59.9, ADULT 12/07/2018 AMARIS ENAMORADO MD Ot E66.01 MORBID (SEVERE) OBESITY DUE TO EXCESS CA 12/07/2018 AMARIS ENAMORADO MD Ot I50 .9 HEART FAILURE, UNSPECIFIED 12/07/2018 AMARIS ENAMORADO MD Ot I87.323 CHRONIC VENOUS HTN W INFLAMMATION OF NIA 12/07/2018 AMARIS ENAMORADO MD Ot I89 .0 LYMPHEDEMA, NOT ELSEWHERE CLASSIFIED 12/07/2018 AMARIS ENAMORADO MD Ot R68.89 OTHER GENERAL SYMPTOMS AND SIGNS 12/11/2018 REGINA LAWS FACC, ALI FACP CCDS Ot E66.9 OBESITY, UNSPECIFIED 12/11/2018 REGINA LAWS FACC, ALI FACP CCDS Ot G47.33 OBSTRUCTIVE SLEEP APNEA (ADULT) (PEDIATR 12/11/2018 REGINA LAWS FACC, ALI FACP CCDS Ot I11.0 HYPERTENSIVE HEART DISEASE WITH HEART FA 12/11/2018 REGINA LAWS FACC, ALI FACP CCDS Ot I42.0 DILATED CARDIOMYOPATHY 12/11/2018 REGINA LAWS FACC, ALI FACP CCDS Ot I50.23 ACUTE ON CHRONIC SYSTOLIC (CONGESTIVE) H 12/11/2018 REGINA LAWS [facility], ALI [place] CCDS Ot R06.02 SHORTNESS OF BREATH 12/11/2018 REGINA LAWS [facility], [facility] CCDS Ot Z68.43 BODY MASS INDEX (BMI) 50-59.9, ADULT 12/24/2018 DEBI FLORES MD, Ot A41. 9 SEPSIS, UNSPECIFIED ORGANISM 12/24/2018 DEBI FLORES MD, Ot E03. 9 HYPOTHYROIDISM, UNSPECIFIED 12/24/2018 DEBI FLORES MD, Ot E11. 42 TYPE 2 DIABETES MELLITUS WITH DIABETIC P 12/24/2018 DEBI FLORES MD, Ot E66. 2 MORBID (SEVERE) OBESITY WITH ALVEOLAR HY 12/24/2018 DEBI FLORES MD, Ot E78. 00 PURE HYPERCHOLESTEROLEMIA, UNSPECIFIED 12/24/2018 DEBI FLORES MD, Ot E83. 42 HYPOMAGNESEMIA 12/24/2018 DEBI FLORES MD, Ot I11. 0 HYPERTENSIVE HEART DISEASE WITH HEART FA 12/24/2018 DEBI FLORES MD, Ot I21. A1 MYOCARDIAL INFARCTION TYPE 2 12/24/2018 DEBI FLORES MD, Ot I25. 10 ATHSCL HEART DISEASE OF [place] CORONARY 12/24/2018 DEBI FLORES MD, Ot I25. 2 OLD MYOCARDIAL INFARCTION 12/24/2018 DEBI FLORES MD, Ot I42. 9 CARDIOMYOPATHY, UNSPECIFIED 12/24/2018 DEBI FLORES MD, Ot I50. 9 HEART FAILURE, UNSPECIFIED 12/24/2018 DEBI FLORES MD, Ot I87. 2 VENOUS INSUFFICIENCY (CHRONIC) (PERIPHER 12/24/2018 DEBI FLORES MD, Ot I89. 0 LYMPHEDEMA, NOT ELSEWHERE CLASSIFIED 12/24/2018 DEBI FLORES MD, Ot J44. 9 CHRONIC OBSTRUCTIVE PULMONARY DISEASE, U 12/24/2018 DEBI FLORES MD, Ot K21. 9 GASTRO-ESOPHAGEAL REFLUX DISEASE WITHOUT 12/24/2018 DEBI FLORES MD, Ot L03.115 CELLULITIS OF RIGHT LOWER LIMB 12/24/2018 DEBI FLORES MD, Ot L03.116 CELLULITIS OF LEFT LOWER LIMB 12/24/2018 DEBI FLORES MD, Ot M19. 91 PRIMARY OSTEOARTHRITIS, UNSPECIFIED SITE 12/24/2018 DEBI FLORES MD, Ot M54. 9 DORSALGIA, UNSPECIFIED 12/24/2018 DEBI FLORES MD Ot Z68. 42 BODY MASS INDEX (BMI) 45.0-49.9, ADULT 12/24/2018 DEBI FLORES MD, Ot Z79. 84 SHELTER (CURRENT) USE OF ORAL HYPOGLYC 12/24/2018 DEBI FLORES MD Ot Z86. 73 PRSNL HX OF TIA (TIA), AND CEREB INFRC W 12/24/2018 DEBI FLORES MD, Ot Z87.891 PERSONAL HISTORY OF NICOTINE DEPENDENCE 03/29/2019 REGINA LAWS FACC, ALI FACP CCDS Ot E66.01 MORBID (SEVERE) OBESITY DUE TO EXCESS CA 03/29/2019 REGINA LAWS FACC, ALI FACP CCDS Ot G47.33 OBSTRUCTIVE SLEEP APNEA (ADULT) (PEDIATR 03/29/2019 REGINA LAWS FACC, ALI FACP CCDS Ot I10 ESSENTIAL (PRIMARY) HYPERTENSION 03/29/2019 REGINA LAWS FACC, ALI FACP CCDS Ot I42.0 DILATED CARDIOMYOPATHY 03/29/2019 REGINA LAWS FACC, ALI FACP CCDS Ot I73.9 PERIPHERAL VASCULAR DISEASE, UNSPECIFIED 03/29/2019 REGINA LAWS FACC, ALI FACP CCDS Ot M79.89 OTHER SPECIFIED SOFT TISSUE DISORDERS 03/29/2019 REGINA LAWS FACC, ALI FACP CCDS Ot R06.02 SHORTNESS OF BREATH 03/29/2019 REGINA LAWS FACC, ALI FACP CCDS Ot E66.01 MORBID (SEVERE) OBESITY DUE TO EXCESS CA 03/29/2019 REGINA VALADEZC, ALI FACP CCDS Ot G47.33 OBSTRUCTIVE SLEEP APNEA (ADULT) (PEDIATR 03/29/2019 REGINA LAWS FACC, ALI FACP CCDS Ot I10 ESSENTIAL (PRIMARY) HYPERTENSION 03/29/2019 REGINA LAWS FACC, ALI FACP CCDS Ot I42.0 DILATED CARDIOMYOPATHY 03/29/2019 REGINA LAWS FACC, ALI FACP CCDS Ot I73.9 PERIPHERAL VASCULAR DISEASE, UNSPECIFIED 03/29/2019 REGINA LAWS FACC, ALI FACP CCDS Ot M79.89 OTHER SPECIFIED SOFT TISSUE DISORDERS 03/29/2019 REGINA LAWS FACC, ALI FACP CCDS Ot R06.02 SHORTNESS OF BREATH 03/29/2019 REGINA LAWS FACC, ALI FACP CCDS Ot E66.9 OBESITY, UNSPECIFIED 03/29/2019 REGINA LAWS FACC, ALI FACP CCDS Ot G47.33 OBSTRUCTIVE SLEEP APNEA (ADULT) (PEDIATR 03/29/2019 REGINA LAWS FACC, LANCE FACP CCDS Ot I11.0 HYPERTENSIVE HEART DISEASE WITH HEART FA 03/29/2019 REGINA LAWS FACC, LANCE FACP CCDS Ot I42.0 DILATED CARDIOMYOPATHY 03/29/2019 REGINA LAWS FACC, LANCE FACP CCDS Ot I50.23 ACUTE ON CHRONIC SYSTOLIC (CONGESTIVE) H 03/29/2019 REGINA LAWS FACC, LANCE FACP CCDS Ot R06.02 SHORTNESS OF BREATH 03/29/2019 REGINA LAWS FACC, ALI FACP CCDS Ot Z68.43 BODY MASS INDEX (BMI) 50-59.9, ADULT 03/29/2019 AMARIS ENAMORADO MD Ot E66.01 MORBID (SEVERE) OBESITY DUE TO EXCESS CA 03/29/2019 AMARIS ENAMORADO MD Ot I50 .9 HEART FAILURE, UNSPECIFIED 03/29/2019 AMARIS ENAMORADO MD Ot I87.323 CHRONIC VENOUS HTN W INFLAMMATION OF NIA 03/29/2019 AMARIS ENAMORADO MD Ot I89 .0 LYMPHEDEMA, NOT ELSEWHERE CLASSIFIED 03/29/2019 AMARIS ENAMORADO MD Ot R68.89 OTHER GENERAL SYMPTOMS AND SIGNS 04/03/2019 REGINA LAWS FACC, LANCE FACP CCDS Ot E66.01 MORBID (SEVERE) OBESITY DUE TO EXCESS CA 04/03/2019 REGINA LAWS FACC, LANCE FACP CCDS Ot G47.33 OBSTRUCTIVE SLEEP APNEA (ADULT) (PEDIATR 04/03/2019 REGINA LAWS FACC, LANCE FACP CCDS Ot I07.1 RHEUMATIC TRICUSPID INSUFFICIENCY 04/03/2019 REGINA LAWS FACC, LANCE FACP CCDS Ot I11.0 HYPERTENSIVE HEART DISEASE WITH HEART FA 04/03/2019 REGINA LAWS FACC, ALI FACP CCDS Ot I50.22 CHRONIC SYSTOLIC (CONGESTIVE) HEART FAIL 04/17/2019 REGINA LAWS FACC, ALI FACP CCDS Ot E66.01 MORBID (SEVERE) OBESITY DUE TO EXCESS CA 04/17/2019 REGINA LAWS FACC, ALI FACP CCDS Ot G47.33 OBSTRUCTIVE SLEEP APNEA (ADULT) (PEDIATR 04/17/2019 REGINA LAWS FACC, ALI FACP CCDS Ot I11.0 HYPERTENSIVE HEART DISEASE WITH HEART FA 04/17/2019 REGINA LAWS FACC, ALI FACP CCDS Ot I42.0 DILATED CARDIOMYOPATHY 04/17/2019 REGINA LAWS FACC, ALI FACP CCDS Ot I50.22 CHRONIC SYSTOLIC (CONGESTIVE) HEART FAIL 04/17/2019 [facility], [facility] Ot M79.89 OTHER SPECIFIED SOFT TISSUE DISORDERS 04/17/2019 REGINA LAWS FACC, ALI FACP CCDS Ot E66.01 MORBID (SEVERE) OBESITY DUE TO EXCESS CA 04/17/2019 REGINA LAWS FACC, ALI FACP CCDS Ot G47.33 OBSTRUCTIVE SLEEP APNEA (ADULT) (PEDIATR 04/17/2019 REGINA LAWS FACC, ALI FACP CCDS Ot I07.1 RHEUMATIC TRICUSPID INSUFFICIENCY 04/17/2019 REGINA LAWS FACC, ALI FACP CCDS Ot I11.0 HYPERTENSIVE HEART DISEASE WITH HEART FA 04/17/2019 REGINA LAWS [facility], ALI FACP CCDS Ot I50.22 CHRONIC SYSTOLIC (CONGESTIVE) HEART FAIL 04/23/2019 REGINA LAWS [facility], ALI FACP CCDS Ot E66.01 MORBID (SEVERE) OBESITY DUE TO EXCESS CA 04/23/2019 REGINA LAWS [facility], ALI FACP CCDS Ot G47.33 OBSTRUCTIVE SLEEP APNEA (ADULT) (PEDIATR 04/23/2019 [facility], [facility]I FACP CCDS Ot I11.0 HYPERTENSIVE HEART DISEASE WITH HEART FA 04/23/2019 REGINA LAWS [facility], ALI FACP CCDS Ot I42.0 DILATED CARDIOMYOPATHY 04/23/2019 REGINA LAWS [facility], ALI FACP CCDS Ot I50.22 CHRONIC SYSTOLIC (CONGESTIVE) HEART FAIL 04/23/2019 REGINA LAWS [facility], ALI FACP CCDS Ot M79.89 OTHER SPECIFIED SOFT TISSUE DISORDERS 05/08/2019 REGINA LAWS [facility], ALI FACP CCDS Ot E66.01 MORBID (SEVERE) OBESITY DUE TO EXCESS CA 05/08/2019 REGINA LAWS [facility], ALI FACP CCDS Ot G47.33 OBSTRUCTIVE SLEEP APNEA (ADULT) (PEDIATR 05/08/2019 REGINA LAWS [facility], ALI FACP CCDS Ot I10 ESSENTIAL (PRIMARY) HYPERTENSION 05/08/2019 REGINA LAWS [facility], LANCE FACP CCDS Ot I42.0 DILATED CARDIOMYOPATHY 05/08/2019 REGINA LAWS [facility], ALI FACP CCDS Ot I73.9 PERIPHERAL VASCULAR DISEASE, UNSPECIFIED 05/08/2019 REGINA LAWS [facility], ALI FACP CCDS Ot M79.89 OTHER SPECIFIED SOFT TISSUE DISORDERS 05/08/2019 REGINA LAWS [facility], ALI FACP CCDS Ot R06.02 SHORTNESS OF BREATH 05/08/2019 AMARIS ENAMORADO MD Ot E66.01 MORBID (SEVERE) OBESITY DUE TO EXCESS CA 05/08/2019 AMARIS ENAMORADO MD Ot I50 .9 HEART FAILURE, UNSPECIFIED 05/08/2019 AMARIS ENAMORADO MD Ot I87.323 CHRONIC VENOUS HTN W INFLAMMATION OF NIA 05/08/2019 AMARIS ENAMORADO MD Ot I89 .0 LYMPHEDEMA, NOT ELSEWHERE CLASSIFIED 05/08/2019 AMARIS ENAMORADO MD Ot R68.89 OTHER GENERAL SYMPTOMS AND SIGNS 05/08/2019 REGINA LAWS [facility], LANCE FACP CCDS Ot E66.01 MORBID (SEVERE) OBESITY DUE TO EXCESS CA 05/08/2019 REGINA LAWS [facility], LANCE FACP CCDS Ot G47.33 OBSTRUCTIVE SLEEP APNEA (ADULT) (PEDIATR 05/08/2019 REGINA LAWS [facility], ALI FACP CCDS Ot I10 ESSENTIAL (PRIMARY) HYPERTENSION 05/08/2019 REGINA LAWS [facility], ALI FACP CCDS Ot I42.0 DILATED CARDIOMYOPATHY 05/08/2019 REGINA LAWS [facility], LANCE FACP CCDS Ot I73.9 PERIPHERAL VASCULAR DISEASE, UNSPECIFIED 05/08/2019 REGINA LAWS [facility], ALI FACP CCDS Ot M79.89 OTHER SPECIFIED SOFT TISSUE DISORDERS 05/08/2019 REGINA LAWS [facility], ALI FACP CCDS Ot R06.02 SHORTNESS OF BREATH 05/08/2019 REGINA LAWS [facility], LANCE FACP CCDS Ot E66.9 OBESITY, UNSPECIFIED 05/08/2019 REGINA LAWS [facility], ALI FACP CCDS Ot G47.33 OBSTRUCTIVE SLEEP APNEA (ADULT) (PEDIATR 05/08/2019 REGINA LAWS [facility], ALI FACP CCDS Ot I11.0 HYPERTENSIVE HEART DISEASE WITH HEART FA 05/08/2019 REGINA LAWS [facility], ALI FACP CCDS Ot I42.0 DILATED CARDIOMYOPATHY 05/08/2019 REGINA LAWS [facility], ALI FACP CCDS Ot I50.23 ACUTE ON CHRONIC SYSTOLIC (CONGESTIVE) H 05/08/2019 REGINA LAWS [facility], ALI FACP CCDS Ot R06.02 SHORTNESS OF BREATH 05/08/2019 REGINA LAWS [facility], ALI FACP CCDS Ot Z68.43 BODY MASS INDEX (BMI) 50-59.9, ADULT 05/08/2019 REGINA LAWS [facility], ALI FACP CCDS Ot E66.01 MORBID (SEVERE) OBESITY DUE TO EXCESS CA 05/08/2019 REGINA LAWS [facility], ALI FACP CCDS Ot G47.33 OBSTRUCTIVE SLEEP APNEA (ADULT) (PEDIATR 05/08/2019 REGINA LWAS [facility], ALI FACP CCDS Ot I07.1 RHEUMATIC TRICUSPID INSUFFICIENCY 05/08/2019 REGINA LAWS [facility], ALI FACP CCDS Ot I11.0 HYPERTENSIVE HEART DISEASE WITH HEART FA 05/08/2019 REGINA LAWS [facility], ALI FACP CCDS Ot I50.22 CHRONIC SYSTOLIC (CONGESTIVE) HEART FAIL 05/08/2019 REGINA LAWS [facility], ALI FACP CCDS Ot E66.01 MORBID (SEVERE) OBESITY DUE TO EXCESS CA 05/08/2019 REGINA LAWS [facility], ALI FACP CCDS Ot G47.33 OBSTRUCTIVE SLEEP APNEA (ADULT) (PEDIATR 05/08/2019 REGINA LAWS [facility], ALI FACP CCDS Ot I11.0 HYPERTENSIVE HEART DISEASE WITH HEART FA 05/08/2019 REGINA LAWS [facility], ALI FACP CCDS Ot I42.0 DILATED CARDIOMYOPATHY 05/08/2019 REGINA LAWS [facility], ALI FACP CCDS Ot I50.22 CHRONIC SYSTOLIC (CONGESTIVE) HEART FAIL 05/08/2019 REGINA LAWS [facility], ALI FACP CCDS Ot M79.89 OTHER SPECIFIED SOFT TISSUE DISORDERS 06/04/2019 ALEXIS WING DOA K Ot E03.9 HYPOTHYROIDISM, UNSPECIFIED 06/04/2019 ALEXIS WING DOA K Ot E11.40 TYPE 2 DIABETES MELLITUS WITH DIABETIC N 06/04/2019 ALEXIS WING DOA K Ot E66.01 MORBID (SEVERE) OBESITY DUE TO EXCESS CA 06/04/2019 MECCA BRIZUELA BREANN K Ot E78.00 PURE HYPERCHOLESTEROLEMIA, UNSPECIFIED 06/04/2019 ALEXIS WING DOA K Ot G47.30 SLEEP APNEA, UNSPECIFIED 06/04/2019 MECCA BRIZUELA BREANN Pepper Ot I11.0 HYPERTENSIVE HEART DISEASE WITH HEART FA 06/04/2019 MECCA BRIZUELA BREANN Pepper Ot I25.10 ATHSCL HEART DISEASE OF [place] CORONARY 06/04/2019 MECCA BRIZUELA BREANN Pepper Ot I25.2 OLD MYOCARDIAL INFARCTION 06/04/2019 MECCA BRIZUELA BREANN Pepper Ot I50.9 HEART FAILURE, UNSPECIFIED 06/04/2019 MECCA BRIZUELA BREANN K Ot J44.9 CHRONIC OBSTRUCTIVE PULMONARY DISEASE, U 06/04/2019 MECCA BRIZUELA BREANN K Ot K21.9 GASTRO-ESOPHAGEAL REFLUX DISEASE WITHOUT 06/04/2019 MECCA BRIZUELA BREANN Pepper Ot L03.115 CELLULITIS OF RIGHT LOWER LIMB 06/04/2019 MECCA BRIZUELA BREANN Pepper Ot L03.116 CELLULITIS OF LEFT LOWER LIMB 06/04/2019 MECCA BREANN K Ot L50.9 URTICARIA, UNSPECIFIED 06/04/2019 MECCA BRIZUELA BREANN Pepper Ot T50.905 A ADVERSE EFFECT OF UNSP DRUG/MEDS/BIOL GALICIA 06/04/2019 MECCA BRIZUELA BREANN Pepper Ot Z68.43 BODY MASS INDEX (BMI) 50.0-59.9, ADULT 06/04/2019 MECCA DO BREANN K Ot Z79.82 SHELTER (CURRENT) USE OF ASPIRIN 06/04/2019 MECCA BRIZUELABREANN Ot Z79.84 SHELTER (CURRENT) USE OF ORAL HYPOGLYC 06/04/2019 MECCA DOBREANN Ot Z82.49 FAMILY HX OF ISCHEM HEART DIS AND OTH DI 06/04/2019 BREANN WING DO Ot Z86.73 PRSNL HX OF TIA (TIA), AND CEREB INFRC W 06/04/2019 MECCA BRIZUELABREANN Ot Z87.442 PERSONAL HISTORY OF URINARY CALCULI 06/04/2019 BREANN WING DO Ot Z87.891 PERSONAL HISTORY OF NICOTINE DEPENDENCE 06/04/2019 BREANN WING DO Ot Z88.5 ALLERGY STATUS TO NARCOTIC AGENT STATUS 06/04/2019 BREANN WING DO Ot Z91.041 RADIOGRAPHIC DYE ALLERGY STATUS 06/04/2019 MECCA BREANN BRIZUELA Ot Z99.89 DEPENDENCE ON OTHER ENABLING MACHINES AN 06/07/2019 MECCA BRIZUELA, BREANN Pabon Ot E03.9 HYPOTHYROIDISM, UNSPECIFIED 06/07/2019 BREANN WING DO Ot E11.40 TYPE 2 DIABETES MELLITUS WITH DIABETIC N 06/07/2019 MECCA BRIZUELA BREANN Pabon Ot E66.01 MORBID (SEVERE) OBESITY DUE TO EXCESS CA 06/07/2019 MECCA BRIZUELA BREANN K Ot E78.00 PURE HYPERCHOLESTEROLEMIA, UNSPECIFIED 06/07/2019 MECCA BREANN Pabon Ot G47.30 SLEEP APNEA, UNSPECIFIED 06/07/2019 MECCA BREANN K Ot I11.0 HYPERTENSIVE HEART DISEASE WITH HEART FA 06/07/2019 MECCA BRIZUELA BREANN K Ot I25.10 ATHSCL HEART DISEASE OF [place] CORONARY 06/07/2019 MECCA BRIZUELA BREANN Pepper Ot I25.2 OLD MYOCARDIAL INFARCTION 06/07/2019 MECCA BRIZUELA BREANN Pepper Ot I50.9 HEART FAILURE, UNSPECIFIED 06/07/2019 MECCA BRIZUELA BREANN Pabon Ot J44.9 CHRONIC OBSTRUCTIVE PULMONARY DISEASE, U 06/07/2019 MECCA BRIZUELA BREANN Pabon Ot K21.9 GASTRO-ESOPHAGEAL REFLUX DISEASE WITHOUT 06/07/2019 MECCA BRIZUELA BREANN Pabon Ot L03.115 CELLULITIS OF RIGHT LOWER LIMB 06/07/2019 MECCA BRIZUELA BREANN Pabon Ot L03.116 CELLULITIS OF LEFT LOWER LIMB 06/07/2019 MECCA BREANN Pabon Ot L50.9 URTICARIA, UNSPECIFIED 06/07/2019 MECCA BRIZUELA BREANN Pabon Ot T50.905 A ADVERSE EFFECT OF UNSP DRUG/MEDS/BIOL GALICIA 06/07/2019 MECCA BRIZUELA BREANN Pabon Ot Z68.43 BODY MASS INDEX (BMI) 50.0-59.9, ADULT 06/07/2019 MECCA BREANN K Ot Z79.82 SHELTER (CURRENT) USE OF ASPIRIN 06/07/2019 MECCA BREANN K Ot Z79.84 SHELTER (CURRENT) USE OF ORAL HYPOGLYC 06/07/2019 MECCA BREANN K Ot Z82.49 FAMILY HX OF ISCHEM HEART DIS AND OTH DI 06/07/2019 MECCA BRIZUELA BREANN Pepper Ot Z86.73 PRSNL HX OF TIA (TIA), AND CEREB INFRC W 06/07/2019 BREANN WING DO Ot Z87.442 PERSONAL HISTORY OF URINARY CALCULI 06/07/2019 BREANN WING DO Ot Z87.891 PERSONAL HISTORY OF NICOTINE DEPENDENCE 06/07/2019 BREANN WING DO Ot Z88.5 ALLERGY STATUS TO NARCOTIC AGENT STATUS 06/07/2019 BREANN WING DO Ot Z91.041 RADIOGRAPHIC DYE ALLERGY STATUS 06/07/2019 BREANN WING DO Ot Z99.89 DEPENDENCE ON OTHER ENABLING MACHINES AN 08/12/2019 DEBI FLORES MD, Ot E03. 9 HYPOTHYROIDISM, UNSPECIFIED 08/12/2019 DEBI FLORES MD, Ot E11. 22 TYPE 2 DIABETES MELLITUS W DIABETIC GASTROENTEROLOGY PHYSICIAN 08/12/2019 DEBI FLORES MD, Ot E11. 40 TYPE 2 DIABETES MELLITUS WITH DIABETIC N 08/12/2019 DEBI FLORES MD, Ot E66. 2 MORBID (SEVERE) OBESITY WITH ALVEOLAR HY 08/12/2019 DEBI FLORES MD, Ot E78. 00 PURE HYPERCHOLESTEROLEMIA, UNSPECIFIED 08/12/2019 DEBI FLORES MD, Ot E78. 5 HYPERLIPIDEMIA, UNSPECIFIED 08/12/2019 DEBI FLORES MD, Ot G89. 29 OTHER CHRONIC PAIN 08/12/2019 DEBI FLORES MD, Ot H26. 9 UNSPECIFIED CATARACT 08/12/2019 DEBI FLORES MD, Ot I11. 0 HYPERTENSIVE HEART DISEASE WITH HEART FA 08/12/2019 DEBI FLORES MD, Ot I13. 0 HYP HRT CHR KDNY DIS W HRT FAIL AND ST 08/12/2019 DEBI FLORES MD, Ot I25. 10 ATHSCL HEART DISEASE OF [place] CORONARY 08/12/2019 DEBI FLORES MD, Ot I25. 2 OLD MYOCARDIAL INFARCTION 08/12/2019 DEBI FLORES MD, Ot I42. 9 CARDIOMYOPATHY, UNSPECIFIED 08/12/2019 DEBI FLORES MD, Ot I50. 43 ACUTE ON CHRONIC COMBINED SYSTOLIC AND D 08/12/2019 DEBI FLORES MD, Ot J44. 9 CHRONIC OBSTRUCTIVE PULMONARY DISEASE, U 08/12/2019 DEBI FLORES MD, Ot K21. 9 GASTRO-ESOPHAGEAL REFLUX DISEASE WITHOUT 08/12/2019 DEBI FLORES MD, Ot K59. 00 CONSTIPATION, UNSPECIFIED 08/12/2019 DEBI FLROES MD, Ot M19. 90 UNSPECIFIED OSTEOARTHRITIS, UNSPECIFIED 08/12/2019 DEBI FLORES MD, Ot M54. 9 DORSALGIA, UNSPECIFIED 08/12/2019 DEBI FLORES MD, Ot N17. 9 ACUTE KIDNEY FAILURE, UNSPECIFIED 08/12/2019 EDBI FLORES MD, Ot N18. 3 CHRONIC KIDNEY DISEASE, STAGE 3 (MODERAT 08/12/2019 DEBI FLORES MD, Ot R31. 9 HEMATURIA, UNSPECIFIED 08/12/2019 DEBI FLORES MD, Ot R53. 81 OTHER MALAISE 08/12/2019 DEBI FLORES MD, Ot Z68. 44 BODY MASS INDEX (BMI) 60.0-69.9, ADULT 08/12/2019 DEBI FLORES MD, Ot Z79. 82 SHELTER (CURRENT) USE OF ASPIRIN 08/12/2019 DEBI FLORES MD, Ot Z79. 84 HEALTH SCIENCE SPECIALIST (CURRENT) USE OF ORAL HYPOGLYC 08/12/2019 DEBI FLORES MD, Ot Z86. 73 PRSNL HX OF TIA (TIA), AND CEREB INFRC W 08/12/2019 DEBI FLORES MD, Ot Z87.442 PERSONAL HISTORY OF URINARY CALCULI 08/12/2019 DEBI FLORES MD, Ot Z87.891 PERSONAL HISTORY OF NICOTINE DEPENDENCE Procedures Code Description Performed By Per romaine On [id number] IN SERTION OF INFUSION DEV INTO L INNOM V 10/30/2018 Results Test Result Range Complete blood count (CBC) with automate d white blood cell (WBC) differential - 02/12/17 22:50 Blood leukocytes automated count (number/volume) 10.0 10*3/uL 4.3-11.0 Blood erythrocytes automated count (number/volume) 5.27 10*6/uL 4.35-5.85 Venous blood hemoglobin measurement (mass/volume) 15.2 g/dL 13.3-17.7 Blood hematocrit (volume fraction) 48 % 40-54 Automated erythrocyte mean corpuscular volume 90 [ foz_us] 80-99 Automated erythrocyte mean corpuscular h emoglobin (mass per erythrocyte) 29 pg 25-34 Automated erythrocyte mean corpuscular h emoglobin concentration measurement (mass/volume) 32 g/dL 32-36 Automated erythrocyte distribution width ratio 13. 2 % 10.0- 14.5 Automated blood platelet count (count/volume) 208 10*3/uL 130-400 Automated blood platelet mean volume measurement 10.4 [foz_us] 7.4-10.4 Automated blood neutrophils/100 leukocytes 62 % 42-75 Automated blood lymphocytes/100 leukocytes 28 % 12-44 Blood monocytes/100 leukocytes 9 % 0-12 Automated blood eosinophils/100 leukocytes 2 % 0-10 Automated blood basophils/100 leukocytes 0 % 0-10 Blood neutrophils automated count (number/volume) 6.2 10*3 1.8-7.8 Blood lymphocytes automated count (number/volume) 2.8 10*3 1.0-4.0 Blood monocytes automated count (number/volume) 0. 9 10*3 0.0-1.0 Automated eosinophil count 0.2 10*3/uL 0 .0-0.3 Automated blood basophil count (count/volume) 0.0 10*3/uL 0.0-0.1 PT panel in platelet poor plasma by coag ulation assay - 02/12/17 22:50 Prothrombin time (PT) in platelet poor plasma by coagu lation assay 12.6 s 12.2-14.7 INR in platelet poor plasma or blood by coagulation as say 0.9 0.8-1.4 Activated partial thromboplastin time (a PTT) in platelet poor plasma bycoagulation assay - 02/12/17 22:50 Activated partial thromboplastin time (a PTT) in platelet poor plasma bycoagulation assay 29 s 24-35 Comprehensive metabolic panel - 02/12/17 22:50 Serum or plasma sodium measurement (moles/volume) 137 mmol/L 135-145 Serum or plasma potassium measurement (moles/volume) 4.0 mmol/L 3.6-5.0 Serum or plasma chloride measurement (moles/volume) 100 mmol/L 98-107 Carbon dioxide 26 mmol/L 21-32 Serum or plasma anion gap determination (moles/volume) 11 mmol/L 5-14 Serum or plasma urea nitrogen measurement (mass/volume ) 17 mg/dL 7-18 Serum or plasma creatinine measurement (mass/volume) 1.19 mg/dL 0.60-1.30 Serum or plasma urea nitrogen/creatinine mass ratio 14 NRG Serum or plasma creatinine measurement w ith calculation of estimated glomerular filtration rate > NRG Serum or plasma glucose measurement (mass/volume) 194 mg/dL 70-105 Serum or plasma calcium measurement (mass/volume) 9.4 mg/dL 8.5-10.1 Serum or plasma total bilirubin measurement (mass/volu me) 0.7 mg/dL 0.1-1.0 Serum or plasma alkaline phosphatase oneal surement (enzymatic activity/volume) 142 U/L 40-136 Serum or plasma aspartate aminotransfera se measurement (enzymatic activity/volume) 33 U/L 5-34 Serum or plasma alanine aminotransferase measurement (enzymatic activity/volume) 30 U/L 0-55 Serum or plasma protein measurement (mass/volume) 7.9 g/dL 6.4-8.2 Serum or plasma albumin measurement (mass/volume) 3.9 g/dL 3.2-4.5 Magnesium - 02/12/17 22:50 Magnesium 2.0 mg/dL 1.8-2.4 Serum or plasma troponin i.cardiac measu rement (mass/volume) - 02/12/17 22:50 Serum or plasma troponin i.cardiac measurement (mass/v olume) < ng/mL <0.30 Serum or plasma lithium measurement (mol es/volume) - 02/12/17 22:50 BNP level 342.9 pg/mL <100.0 Myoglobin, serum - 02/12/17 22:50 Myoglobin, serum 52.2 ng/mL 10.0-92.0 Lipid 1996 panel - 02/13/17 05:45 Serum or plasma triglyceride measurement (mass/volume) 195 mg/dL <150 Serum or plasma cholesterol measurement (mass/volume) 153 mg/dL < 200 Serum or plasma cholesterol in HDL measurement (mass/v olume) 25 mg/dL 40-60 Cholesterol in LDL [mass/volume] in serum or plasma by direct assay 100 mg/dL 1-129 Serum or plasma cholesterol in VLDL measurement (mass/ volume) 39 mg/dL 5-40 Complete blood count (CBC) with automate d white blood cell (WBC) differential - 02/13/17 05:47 Blood leukocytes automated count (number/volume) 8.2 10*3/uL 4.3-11.0 Blood erythrocytes automated count (number/volume) 5.12 10*6/uL 4.35-5.85 Venous blood hemoglobin measurement (mass/volume) 14.7 g/dL 13.3-17.7 Blood hematocrit (volume fraction) 46 % 40-54 Automated erythrocyte mean corpuscular volume 90 [ foz_us] 80-99 Automated erythrocyte mean corpuscular h emoglobin (mass per erythrocyte) 29 pg 25-34 Automated erythrocyte mean corpuscular h emoglobin concentration measurement (mass/volume) 32 g/dL 32-36 Automated erythrocyte distribution width ratio 13. 2 % 10.0- 14.5 Automated blood platelet count (count/volume) 191 10*3/uL 130-400 Automated blood platelet mean volume measurement 10.2 [foz_us] 7.4-10.4 Automated blood neutrophils/100 leukocytes 66 % 42-75 Automated blood lymphocytes/100 leukocytes 23 % 12-44 Blood monocytes/100 leukocytes 9 % 0-12 Automated blood eosinophils/100 leukocytes 2 % 0-10 Automated blood basophils/100 leukocytes 0 % 0-10 Blood neutrophils automated count (number/volume) 5.4 10*3 1.8-7.8 Blood lymphocytes automated count (number/volume) 1.9 10*3 1.0-4.0 Blood monocytes automated count (number/volume) 0. 8 10*3 0.0-1.0 Automated eosinophil count 0.2 10*3/uL 0 .0-0.3 Automated blood basophil count (count/volume) 0.0 10*3/uL 0.0-0.1 Whole blood basic metabolic panel - 01/25 07/12 05:47 Serum or plasma sodium measurement (moles/volume) 138 mmol/L 135-145 Serum or plasma potassium measurement (moles/volume) 3.7 mmol/L 3.6-5.0 Serum or plasma chloride measurement (moles/volume) 98 mmol/L 98-107 Carbon dioxide 29 mmol/L 21-32 Serum or plasma anion gap determination (moles/volume) 11 mmol/L 5-14 Serum or plasma urea nitrogen measurement (mass/volume ) 18 mg/dL 7-18 Serum or plasma creatinine measurement (mass/volume) 1.09 mg/dL 0.60-1.30 Serum or plasma urea nitrogen/creatinine mass ratio 17 NRG Serum or plasma creatinine measurement w ith calculation of estimated glomerular filtration rate > NRG Serum or plasma glucose measurement (mass/volume) 203 mg/dL 70-105 Serum or plasma calcium measurement (mass/volume) 8.9 mg/dL 8.5-10.1 Serum or plasma troponin i.cardiac measu rement (mass/volume) - 02/13/17 05:47 Serum or plasma troponin i.cardiac measurement (mass/v olume) < ng/mL <0.30 Capillary blood glucose measurement by g lucometer (mass/volume) - 02/13/17 10:24 Capillary blood glucose measurement by glucometer (mas s/volume) 236 mg/dL 70-110 Serum or plasma troponin i.cardiac measu rement (mass/volume) - 02/13/17 10:55 Serum or plasma troponin i.cardiac measurement (mass/v olume) < ng/mL <0.30 Capillary blood glucose measurement by g lucometer (mass/volume) - 02/13/17 16:16 Capillary blood glucose measurement by glucometer (mas s/volume) 237 mg/dL 70-110 Capillary blood glucose measurement by g lucometer (mass/volume) - 02/13/17 20:37 Capillary blood glucose measurement by glucometer (mas s/volume) 237 mg/dL 70-110 Complete blood count (CBC) with automate d white blood cell (WBC) differential - 02/14/17 05:40 Blood leukocytes automated count (number/volume) 7.6 10*3/uL 4.3-11.0 Blood erythrocytes automated count (number/volume) 5.11 10*6/uL 4.35-5.85 Venous blood hemoglobin measurement (mass/volume) 14.7 g/dL 13.3-17.7 Blood hematocrit (volume fraction) 47 % 40-54 Automated erythrocyte mean corpuscular volume 91 [ foz_us] 80-99 Automated erythrocyte mean corpuscular h emoglobin (mass per erythrocyte) 29 pg 25-34 Automated erythrocyte mean corpuscular h emoglobin concentration measurement (mass/volume) 32 g/dL 32-36 Automated erythrocyte distribution width ratio 13. 4 % 10.0- 14.5 Automated blood platelet count (count/volume) 197 10*3/uL 130-400 Automated blood platelet mean volume measurement 10.5 [foz_us] 7.4-10.4 Automated blood neutrophils/100 leukocytes 66 % 42-75 Automated blood lymphocytes/100 leukocytes 22 % 12-44 Blood monocytes/100 leukocytes 10 % 0-12 Automated blood eosinophils/100 leukocytes 2 % 0-10 Automated blood basophils/100 leukocytes 0 % 0-10 Blood neutrophils automated count (number/volume) 5.0 10*3 1.8-7.8 Blood lymphocytes automated count (number/volume) 1.6 10*3 1.0-4.0 Blood monocytes automated count (number/volume) 0. 8 10*3 0.0-1.0 Automated eosinophil count 0.1 10*3/uL 0 .0-0.3 Automated blood basophil count (count/volume) 0.0 10*3/uL 0.0-0.1 Whole blood basic metabolic panel - 01/25 08/12 05:40 Serum or plasma sodium measurement (moles/volume) 139 mmol/L 135-145 Serum or plasma potassium measurement (moles/volume) 3.7 mmol/L 3.6-5.0 Serum or plasma chloride measurement (moles/volume) 99 mmol/L 98-107 Carbon dioxide 26 mmol/L 21-32 Serum or plasma anion gap determination (moles/volume) 14 mmol/L 5-14 Serum or plasma urea nitrogen measurement (mass/volume ) 19 mg/dL 7-18 Serum or plasma creatinine measurement (mass/volume) 0.93 mg/dL 0.60-1.30 Serum or plasma urea nitrogen/creatinine mass ratio 20 NRG Serum or plasma creatinine measurement w ith calculation of estimated glomerular filtration rate > NRG Serum or plasma glucose measurement (mass/volume) 183 mg/dL 70-105 Serum or plasma calcium measurement (mass/volume) 9.4 mg/dL 8.5-10.1 Magnesium - 02/14/17 05:40 Magnesium 2.0 mg/dL 1.8-2.4 THYROID STIMULATING HORMONE - 02/14/17 0 5:40 THYROID STIMULATING HORMONE 4.02 u[iU]/mL 0.35-4.94 Capillary blood glucose measurement by g lucometer (mass/volume) - 02/14/17 05:53 Capillary blood glucose measurement by glucometer (mas s/volume) 183 mg/dL 70-110 Capillary blood glucose measurement by g lucometer (mass/volume) - 02/14/17 10:59 Capillary blood glucose measurement by glucometer (mas s/volume) 257 mg/dL 70-110 Capillary blood glucose measurement by g lucometer (mass/volume) - 02/14/17 16:15 Capillary blood glucose measurement by glucometer (mas s/volume) 282 mg/dL 70-110 Complete blood count (CBC) with automate d white blood cell (WBC) differential - 07/10/17 12:40 Blood leukocytes automated count (number/volume) 7.4 10*3/uL 4.3-11.0 Blood erythrocytes automated count (number/volume) 5.55 10*6/uL 4.35-5.85 Venous blood hemoglobin measurement (mass/volume) 16.3 g/dL 13.3-17.7 Blood hematocrit (volume fraction) 49 % 40-54 Automated erythrocyte mean corpuscular volume 88 [ foz_us] 80-99 Automated erythrocyte mean corpuscular h emoglobin (mass per erythrocyte) 29 pg 25-34 Automated erythrocyte mean corpuscular h emoglobin concentration measurement (mass/volume) 33 g/dL 32-36 Automated erythrocyte distribution width ratio 13. 7 % 10.0- 14.5 Automated blood platelet count (count/volume) 245 10*3/uL 130-400 Automated blood platelet mean volume measurement 10.2 [foz_us] 7.4-10.4 Automated blood neutrophils/100 leukocytes 65 % 42-75 Automated blood lymphocytes/100 leukocytes 25 % 12-44 Blood monocytes/100 leukocytes 8 % 0-12 Automated blood eosinophils/100 leukocytes 2 % 0-10 Automated blood basophils/100 leukocytes 0 % 0-10 Blood neutrophils automated count (number/volume) 4.8 10*3 1.8-7.8 Blood lymphocytes automated count (number/volume) 1.8 10*3 1.0-4.0 Blood monocytes automated count (number/volume) 0. 6 10*3 0.0-1.0 Automated eosinophil count 0.2 10*3/uL 0 .0-0.3 Automated blood basophil count (count/volume) 0.0 10*3/uL 0.0-0.1 PT panel in platelet poor plasma by coag ulation assay - 07/10/17 12:40 Prothrombin time (PT) in platelet poor plasma by coagu lation assay 13.2 s 12.2-14.7 INR in platelet poor plasma or blood by coagulation as say 1.0 0.8-1.4 Activated partial thromboplastin time (a PTT) in platelet poor plasma bycoagulation assay - 07/10/17 12:40 Activated partial thromboplastin time (a PTT) in platelet poor plasma bycoagulation assay 29 s 24-35 Comprehensive metabolic panel - 07/10/17 12:40 Serum or plasma sodium measurement (moles/volume) 137 mmol/L 135-145 Serum or plasma potassium measurement (moles/volume) 4.6 mmol/L 3.6-5.0 Serum or plasma chloride measurement (moles/volume) 98 mmol/L 98-107 Carbon dioxide 26 mmol/L 21-32 Serum or plasma anion gap determination (moles/volume) 13 mmol/L 5-14 Serum or plasma urea nitrogen measurement (mass/volume ) 22 mg/dL 7-18 Serum or plasma creatinine measurement (mass/volume) 1.24 mg/dL 0.60-1.30 Serum or plasma urea nitrogen/creatinine mass ratio 18 NRG Serum or plasma creatinine measurement w ith calculation of estimated glomerular filtration rate 59 NRG Serum or plasma glucose measurement (mass/volume) 284 mg/dL 70-105 Serum or plasma calcium measurement (mass/volume) 10.1 mg/dL 8.5-10.1 Serum or plasma total bilirubin measurement (mass/volu me) 0.7 mg/dL 0.1-1.0 Serum or plasma alkaline phosphatase oneal surement (enzymatic activity/volume) 170 U/L 40-136 Serum or plasma aspartate aminotransfera se measurement (enzymatic activity/volume) 27 U/L 5-34 Serum or plasma alanine aminotransferase measurement (enzymatic activity/volume) 31 U/L 0-55 Serum or plasma protein measurement (mass/volume) 8.2 g/dL 6.4-8.2 Serum or plasma albumin measurement (mass/volume) 4.0 g/dL 3.2-4.5 Magnesium - 07/10/17 12:40 Magnesium 1.8 mg/dL 1.8-2.4 Serum or plasma troponin i.cardiac measu rement (mass/volume) - 07/10/17 12:40 Serum or plasma troponin i.cardiac measurement (mass/v olume) < ng/mL <0.30 Serum or plasma lithium measurement (mol es/volume) - 01/15/18 12:40 BNP level 402.9 pg/mL <100.0 Myoglobin, serum - 07/10/17 12:40 Myoglobin, serum 57.8 ng/mL 10.0-92.0 Serum or plasma troponin i.cardiac measu rement (mass/volume) - 07/10/17 15:16 Serum or plasma troponin i.cardiac measurement (mass/v olume) < ng/mL <0.30 Complete blood count (CBC) with automate d white blood cell (WBC) differential - 03/05/18 05:48 Blood leukocytes automated count (number/volume) 7.7 10*3/uL 4.3-11.0 Blood erythrocytes automated count (number/volume) 4.30 10*6/uL 4.35-5.85 Venous blood hemoglobin measurement (mass/volume) 12.7 g/dL 13.3-17.7 Blood hematocrit (volume fraction) 40 % 40-54 Automated erythrocyte mean corpuscular volume 93 [ foz_us] 80-99 Automated erythrocyte mean corpuscular h emoglobin (mass per erythrocyte) 30 pg 25-34 Automated erythrocyte mean corpuscular h emoglobin concentration measurement (mass/volume) 32 g/dL 32-36 Automated erythrocyte distribution width ratio 14. 4 % 10.0- 14.5 Automated blood platelet count (count/volume) 241 10*3/uL 130-400 Automated blood platelet mean volume measurement 10.3 [foz_us] 7.4-10.4 Automated blood neutrophils/100 leukocytes 62 % 42-75 Automated blood lymphocytes/100 leukocytes 26 % 12-44 Blood monocytes/100 leukocytes 9 % 0-12 Automated blood eosinophils/100 leukocytes 2 % 0-10 Automated blood basophils/100 leukocytes 0 % 0-10 Blood neutrophils automated count (number/volume) 4.8 10*3 1.8-7.8 Blood lymphocytes automated count (number/volume) 2.0 10*3 1.0-4.0 Blood monocytes automated count (number/volume) 0. 7 10*3 0.0-1.0 Automated eosinophil count 0.2 10*3/uL 0 .0-0.3 Automated blood basophil count (count/volume) 0.0 10*3/uL 0.0-0.1 Comprehensive metabolic panel - 03/05/18 05:48 Serum or plasma sodium measurement (moles/volume) 135 mmol/L 135-145 Serum or plasma potassium measurement (moles/volume) 4.5 mmol/L 3.6-5.0 Serum or plasma chloride measurement (moles/volume) 97 mmol/L 98-107 Carbon dioxide 25 mmol/L 21-32 Serum or plasma anion gap determination (moles/volume) 13 mmol/L 5-14 Serum or plasma urea nitrogen measurement (mass/volume ) 21 mg/dL 7-18 Serum or plasma creatinine measurement (mass/volume) 1.25 mg/dL 0.60-1.30 Serum or plasma urea nitrogen/creatinine mass ratio 17 NRG Serum or plasma creatinine measurement w ith calculation of estimated glomerular filtration rate 58 NRG Serum or plasma glucose measurement (mass/volume) 196 mg/dL 70-105 Serum or plasma calcium measurement (mass/volume) 8.8 mg/dL 8.5-10.1 Serum or plasma total bilirubin measurement (mass/volu me) 0.8 mg/dL 0.1-1.0 Serum or plasma alkaline phosphatase oneal surement (enzymatic activity/volume) 144 U/L 40-136 Serum or plasma aspartate aminotransfera se measurement (enzymatic activity/volume) 39 U/L 5-34 Serum or plasma alanine aminotransferase measurement (enzymatic activity/volume) 39 U/L 0-55 Serum or plasma protein measurement (mass/volume) 7.2 g/dL 6.4-8.2 Serum or plasma albumin measurement (mass/volume) 3.6 g/dL 3.2-4.5 CALCIUM CORRECTED 9.1 mg/dL 8.5-10.1 Serum or plasma lithium measurement (mol es/volume) - 03/05/18 05:48 BNP level 178.3 pg/mL <100.0 Complete blood count (CBC) with automate d white blood cell (WBC) differential - 08/29/18 00:30 Blood leukocytes automated count (number/volume) 8.0 10*3/uL 4.3-11.0 Blood erythrocytes automated count (number/volume) 4.79 10*6/uL 4.35-5.85 Venous blood hemoglobin measurement (mass/volume) 14.1 g/dL 13.3-17.7 Blood hematocrit (volume fraction) 44 % 40-54 Automated erythrocyte mean corpuscular volume 91 [ foz_us] 80-99 Automated erythrocyte mean corpuscular h emoglobin (mass per erythrocyte) 29 pg 25-34 Automated erythrocyte mean corpuscular h emoglobin concentration measurement (mass/volume) 32 g/dL 32-36 Automated erythrocyte distribution width ratio 13. 9 % 10.0- 14.5 Automated blood platelet count (count/volume) 201 10*3/uL 130-400 Automated blood platelet mean volume measurement 10.3 [foz_us] 7.4-10.4 Automated blood neutrophils/100 leukocytes 62 % 42-75 Automated blood lymphocytes/100 leukocytes 24 % 12-44 Blood monocytes/100 leukocytes 10 % 0-12 Automated blood eosinophils/100 leukocytes 3 % 0-10 Automated blood basophils/100 leukocytes 0 % 0-10 Blood neutrophils automated count (number/volume) 5.0 10*3 1.8-7.8 Blood lymphocytes automated count (number/volume) 1.9 10*3 1.0-4.0 Blood monocytes automated count (number/volume) 0. 8 10*3 0.0-1.0 Automated eosinophil count 0.2 10*3/uL 0 .0-0.3 Automated blood basophil count (count/volume) 0.0 10*3/uL 0.0-0.1 PT panel in platelet poor plasma by coag ulation assay - 08/29/18 00:30 Prothrombin time (PT) in platelet poor plasma by coagu lation assay 14.2 s 12.2-14.7 INR in platelet poor plasma or blood by coagulation as say 1.1 0.8-1.4 Activated partial thromboplastin time (a PTT) in platelet poor plasma bycoagulation assay - 08/29/18 00:30 Activated partial thromboplastin time (a PTT) in platelet poor plasma bycoagulation assay 35 s 24-35 Comprehensive metabolic panel - 08/29/18 00:30 Serum or plasma sodium measurement (moles/volume) 138 mmol/L 135-145 Serum or plasma potassium measurement (moles/volume) 4.5 mmol/L 3.6-5.0 Serum or plasma chloride measurement (moles/volume) 104 mmol/L 98-107 Carbon dioxide 24 mmol/L 21-32 Serum or plasma anion gap determination (moles/volume) 10 mmol/L 5-14 Serum or plasma urea nitrogen measurement (mass/volume ) 18 mg/dL 7-18 Serum or plasma creatinine measurement (mass/volume) 1.00 mg/dL 0.60-1.30 Serum or plasma urea nitrogen/creatinine mass ratio 18 NRG Serum or plasma creatinine measurement w ith calculation of estimated glomerular filtration rate > NRG Serum or plasma glucose measurement (mass/volume) 140 mg/dL 70-105 Serum or plasma calcium measurement (mass/volume) 9.6 mg/dL 8.5-10.1 Serum or plasma total bilirubin measurement (mass/volu me) 0.7 mg/dL 0.1-1.0 Serum or plasma alkaline phosphatase oneal surement (enzymatic activity/volume) 151 U/L 40-136 Serum or plasma aspartate aminotransfera se measurement (enzymatic activity/volume) 32 U/L 5-34 Serum or plasma alanine aminotransferase measurement (enzymatic activity/volume) 27 U/L 0-55 Serum or plasma protein measurement (mass/volume) 7.4 g/dL 6.4-8.2 Serum or plasma albumin measurement (mass/volume) 3.9 g/dL 3.2-4.5 CALCIUM CORRECTED 9.7 mg/dL 8.5-10.1 Magnesium - 08/29/18 00:30 Magnesium 1.9 mg/dL 1.8-2.4 Complete blood count (CBC) with automate d white blood cell (WBC) differential - 09/22/18 12:06 Blood leukocytes automated count (number/volume) 8.2 10*3/uL 4.3-11.0 Blood erythrocytes automated count (number/volume) 4.92 10*6/uL 4.35-5.85 Venous blood hemoglobin measurement (mass/volume) 14.3 g/dL 13.3-17.7 Blood hematocrit (volume fraction) 44 % 40-54 Automated erythrocyte mean corpuscular volume 90 [ foz_us] 80-99 Automated erythrocyte mean corpuscular h emoglobin (mass per erythrocyte) 29 pg 25-34 Automated erythrocyte mean corpuscular h emoglobin concentration measurement (mass/volume) 32 g/dL 32-36 Automated erythrocyte distribution width ratio 14. 2 % 10.0- 14.5 Automated blood platelet count (count/volume) 229 10*3/uL 130-400 Automated blood platelet mean volume measurement 10.2 [foz_us] 7.4-10.4 Automated blood neutrophils/100 leukocytes 67 % 42-75 Automated blood lymphocytes/100 leukocytes 22 % 12-44 Blood monocytes/100 leukocytes 9 % 0-12 Automated blood eosinophils/100 leukocytes 2 % 0-10 Automated blood basophils/100 leukocytes 0 % 0-10 Blood neutrophils automated count (number/volume) 5.5 10*3 1.8-7.8 Blood lymphocytes automated count (number/volume) 1.8 10*3 1.0-4.0 Blood monocytes automated count (number/volume) 0. 7 10*3 0.0-1.0 Automated eosinophil count 0.2 10*3/uL 0 .0-0.3 Automated blood basophil count (count/volume) 0.0 10*3/uL 0.0-0.1 Comprehensive metabolic panel - 09/22/18 12:06 Serum or plasma sodium measurement (moles/volume) 138 mmol/L 135-145 Serum or plasma potassium measurement (moles/volume) 4.2 mmol/L 3.6-5.0 Serum or plasma chloride measurement (moles/volume) 103 mmol/L 98-107 Carbon dioxide 24 mmol/L 21-32 Serum or plasma anion gap determination (moles/volume) 11 mmol/L 5-14 Serum or plasma urea nitrogen measurement (mass/volume ) 14 mg/dL 7-18 Serum or plasma creatinine measurement (mass/volume) 1.31 mg/dL 0.60-1.30 Serum or plasma urea nitrogen/creatinine mass ratio 11 NRG Serum or plasma creatinine measurement w ith calculation of estimated glomerular filtration rate 55 NRG Serum or plasma glucose measurement (mass/volume) 228 mg/dL 70-105 Serum or plasma calcium measurement (mass/volume) 9.1 mg/dL 8.5-10.1 Serum or plasma total bilirubin measurement (mass/volu me) 0.7 mg/dL 0.1-1.0 Serum or plasma alkaline phosphatase oneal surement (enzymatic activity/volume) 149 U/L 40-136 Serum or plasma aspartate aminotransfera se measurement (enzymatic activity/volume) 23 U/L 5-34 Serum or plasma alanine aminotransferase measurement (enzymatic activity/volume) 21 U/L 0-55 Serum or plasma protein measurement (mass/volume) 7.5 g/dL 6.4-8.2 Serum or plasma albumin measurement (mass/volume) 3.7 g/dL 3.2-4.5 CALCIUM CORRECTED 9.3 mg/dL 8.5-10.1 Magnesium - 09/22/18 12:06 Magnesium 1.4 mg/dL 1.8-2.4 Serum or plasma creatine kinase measurem ent (enzymatic activity/volume) - 09/22/18 12:06 Serum or plasma creatine kinase measurem ent (enzymatic activity/volume) 40 U/L 30-200 Serum or plasma lithium measurement (mol es/volume) - 09/22/18 12:06 BNP level 540.6 pg/mL <100.0 Serum or plasma troponin i.cardiac measu rement (mass/volume) - 09/22/18 12:06 Serum or plasma troponin i.cardiac measurement (mass/v olume) < ng/mL <0.028 Myoglobin, serum - 09/22/18 12:06 Myoglobin, serum 69.2 ng/mL 10.0-92.0 PT panel in platelet poor plasma by coag ulation assay - 09/22/18 12:06 Prothrombin time (PT) in platelet poor plasma by coagu lation assay 14.0 s 12.2-14.7 INR in platelet poor plasma or blood by coagulation as say 1.0 0.8-1.4 Activated partial thromboplastin time (a PTT) in platelet poor plasma bycoagulation assay - 09/22/18 12:06 Activated partial thromboplastin time (a PTT) in platelet poor plasma bycoagulation assay 38 s 24-35 THYROID STIMULATING HORMONE - 09/22/18 1 2:06 THYROID STIMULATING HORMONE 8.17 u[iU]/mL 0.35-4.94 Serum or plasma thyroxine (T4) free mariza urement (mass/volume) - 09/22/18 12:06 Serum or plasma thyroxine (T4) free measurement (mass/ volume) 1.07 ng/dL 0.70-1.48 Serum or plasma troponin i.cardiac measu rement (mass/volume) - 09/22/18 14:25 Serum or plasma troponin i.cardiac measurement (mass/v olume) < ng/mL <0.028 Complete blood count (CBC) with automate d white blood cell (WBC) differential - 10/27/18 00:02 Blood leukocytes automated count (number/volume) 13.2 10*3/uL 4.3-11.0 Blood erythrocytes automated count (number/volume) 4.92 10*6/uL 4.35-5.85 Venous blood hemoglobin measurement (mass/volume) 14.1 g/dL 13.3-17.7 Blood hematocrit (volume fraction) 44 % 40-54 Automated erythrocyte mean corpuscular volume 90 [ foz_us] 80-99 Automated erythrocyte mean corpuscular h emoglobin (mass per erythrocyte) 29 pg 25-34 Automated erythrocyte mean corpuscular h emoglobin concentration measurement (mass/volume) 32 g/dL 32-36 Automated erythrocyte distribution width ratio 14. 4 % 10.0- 14.5 Automated blood platelet count (count/volume) 195 10*3/uL 130-400 Automated blood platelet mean volume measurement 11.1 [foz_us] 7.4-10.4 Automated blood neutrophils/100 leukocytes 87 % 42-75 Automated blood lymphocytes/100 leukocytes 6 % 12-44 Blood monocytes/100 leukocytes 6 % 0-12 Automated blood eosinophils/100 leukocytes 0 % 0-10 Automated blood basophils/100 leukocytes 0 % 0-10 Blood neutrophils automated count (number/volume) 11.6 10*3 1.8-7.8 Blood lymphocytes automated count (number/volume) 0.8 10*3 1.0-4.0 Blood monocytes automated count (number/volume) 0. 8 10*3 0.0-1.0 Automated eosinophil count 0.0 10*3/uL 0 .0-0.3 Automated blood basophil count (count/volume) 0.0 10*3/uL 0.0-0.1 PT panel in platelet poor plasma by coag ulation assay - 10/27/18 00:02 Prothrombin time (PT) in platelet poor plasma by coagu lation assay 15.0 s 12.2-14.7 INR in platelet poor plasma or blood by coagulation as say 1.1 0.8-1.4 Activated partial thromboplastin time (a PTT) in platelet poor plasma bycoagulation assay - 10/27/18 00:02 Activated partial thromboplastin time (a PTT) in platelet poor plasma bycoagulation assay 40 s 24-35 Blood lactic acid measurement (moles/vol ume) - 10/27/18 00:02 Blood lactic acid measurement (moles/volume) 2.81 mmol/L 0.50-2.00 Comprehensive metabolic panel - 10/27/18 00:02 Serum or plasma sodium measurement (moles/volume) 133 mmol/L 135-145 Serum or plasma potassium measurement (moles/volume) 3.8 mmol/L 3.6-5.0 Serum or plasma chloride measurement (moles/volume) 97 mmol/L 98-107 Carbon dioxide 22 mmol/L 21-32 Serum or plasma anion gap determination (moles/volume) 14 mmol/L 5-14 Serum or plasma urea nitrogen measurement (mass/volume ) 24 mg/dL 7-18 Serum or plasma creatinine measurement (mass/volume) 1.62 mg/dL 0.60-1.30 Serum or plasma urea nitrogen/creatinine mass ratio 15 NRG Serum or plasma creatinine measurement w ith calculation of estimated glomerular filtration rate 43 NRG Serum or plasma glucose measurement (mass/volume) 328 mg/dL 70-105 Serum or plasma calcium measurement (mass/volume) 9.3 mg/dL 8.5-10.1 Serum or plasma total bilirubin measurement (mass/volu me) 1.1 mg/dL 0.1-1.0 Serum or plasma alkaline phosphatase oneal surement (enzymatic activity/volume) 213 U/L 40-136 Serum or plasma aspartate aminotransfera se measurement (enzymatic activity/volume) 42 U/L 5-34 Serum or plasma alanine aminotransferase measurement (enzymatic activity/volume) 37 U/L 0-55 Serum or plasma protein measurement (mass/volume) 8.0 g/dL 6.4-8.2 Serum or plasma albumin measurement (mass/volume) 3.6 g/dL 3.2-4.5 CALCIUM CORRECTED 9.6 mg/dL 8.5-10.1 Magnesium - 10/27/18 00:02 Magnesium 1.7 mg/dL 1.8-2.4 Serum or plasma amylase measurement (enz ymatic activity/volume) - 10/27/18 00:02 Serum or plasma amylase measurement (enzymatic activit y/volume) 26 U/L 25-125 Lipase - 10/27/18 00:02 Lipase 45 U/L 8-78 Bacterial blood culture - 10/27/18 00:02 Bacterial blood culture NG NRG Bacterial blood culture - 10/27/18 00:55 Bacterial blood culture NG NRG Complete urinalysis with reflex to cultu re - 10/27/18 02:09 Urine color determination YELLOW NRG Urine clarity determination SLIGHTLY CLOUDY NRG Urine pH measurement by test strip 5 5-9 Specific gravity of urine by test strip 1.020 1.016-1.022 Urine protein assay by test strip, semi-quantitative 3+ NEGATIVE Urine glucose detection by automated test strip 3+ NEGATIVE Erythrocytes detection in urine sediment by light micr oscopy 4+ NEGATIVE Urine ketones detection by automated test strip 1+ NEGATIVE Urine nitrite detection by test strip NEGATIVE NEGATIVE Urine total bilirubin detection by test strip 1+ NEGATIVE Urine urobilinogen measurement by automated test strip (mass/volume) 1 mg/dL NORMAL Urine leukocyte esterase detection by dipstick 1+ NEGATIVE Automated urine sediment erythrocyte cou nt by microscopy (number/high power field) [HPF] NRG Automated urine sediment leukocyte count by microscopy (number/high power field) [HPF] NRG Bacteria detection in urine sediment by light microsco py MODERATE NRG Squamous epithelial cells detection in u rine sediment by light microscopy 2-5 NRG Crystals detection in urine sediment by light microsco py PRESENT NRG Casts detection in urine sediment by light microscopy PRESENT NRG Mucus detection in urine sediment by light microscopy NEGATIVE NRG Complete urinalysis with reflex to culture CULTURE PENDING NRG Amorphous sediment detection in urine sediment by ligh t microscopy MOD LOY URATES NRG Hyaline casts detection in urine sediment by light sae roscopy 2-5 NRG Granular casts detection in urine sediment by light mi croscopy 10-25 NRG Bacterial urine culture - 10/27/18 02:09 Bacterial urine culture NG NRG Serum or plasma lactate measurement (mol es/volume) - 10/27/18 02:22 Serum or plasma lactate measurement (moles/volume) 4.53 mmol/L 0.50-2.00 Capillary blood glucose measurement by g lucometer (mass/volume) - 10/27/18 04:33 Capillary blood glucose measurement by glucometer (mas s/volume) 235 mg/dL 70-110 Complete blood count (CBC) with automate d white blood cell (WBC) differential - 10/27/18 05:25 Blood leukocytes automated count (number/volume) 15.0 10*3/uL 4.3-11.0 Blood erythrocytes automated count (number/volume) 4.78 10*6/uL 4.35-5.85 Venous blood hemoglobin measurement (mass/volume) 13.6 g/dL 13.3-17.7 Blood hematocrit (volume fraction) 43 % 40-54 Automated erythrocyte mean corpuscular volume 90 [ foz_us] 80-99 Automated erythrocyte mean corpuscular h emoglobin (mass per erythrocyte) 29 pg 25-34 Automated erythrocyte mean corpuscular h emoglobin concentration measurement (mass/volume) 32 g/dL 32-36 Automated erythrocyte distribution width ratio 14. 3 % 10.0- 14.5 Automated blood platelet count (count/volume) 180 10*3/uL 130-400 Automated blood platelet mean volume measurement 10.9 [foz_us] 7.4-10.4 Automated blood neutrophils/100 leukocytes 85 % 42-75 Automated blood lymphocytes/100 leukocytes 9 % 12-44 Blood monocytes/100 leukocytes 6 % 0-12 Automated blood eosinophils/100 leukocytes 0 % 0-10 Automated blood basophils/100 leukocytes 0 % 0-10 Blood neutrophils automated count (number/volume) 12.7 10*3 1.8-7.8 Blood lymphocytes automated count (number/volume) 1.3 10*3 1.0-4.0 Blood monocytes automated count (number/volume) 0. 9 10*3 0.0-1.0 Automated eosinophil count 0.0 10*3/uL 0 .0-0.3 Automated blood basophil count (count/volume) 0.1 10*3/uL 0.0-0.1 Blood lactic acid measurement (moles/vol ume) - 10/27/18 05:25 Blood lactic acid measurement (moles/volume) 2.33 mmol/L 0.50-2.00 Comprehensive metabolic panel - 10/27/18 05:25 Serum or plasma sodium measurement (moles/volume) 134 mmol/L 135-145 Serum or plasma potassium measurement (moles/volume) 4.0 mmol/L 3.6-5.0 Serum or plasma chloride measurement (moles/volume) 102 mmol/L 98-107 Carbon dioxide 21 mmol/L 21-32 Serum or plasma anion gap determination (moles/volume) 11 mmol/L 5-14 Serum or plasma urea nitrogen measurement (mass/volume ) 25 mg/dL 7-18 Serum or plasma creatinine measurement (mass/volume) 1.75 mg/dL 0.60-1.30 Serum or plasma urea nitrogen/creatinine mass ratio 14 NRG Serum or plasma creatinine measurement w ith calculation of estimated glomerular filtration rate 39 NRG Serum or plasma glucose measurement (mass/volume) 257 mg/dL 70-105 Serum or plasma calcium measurement (mass/volume) 8.7 mg/dL 8.5-10.1 Serum or plasma total bilirubin measurement (mass/volu me) 1.0 mg/dL 0.1-1.0 Serum or plasma alkaline phosphatase oneal surement (enzymatic activity/volume) 185 U/L 40-136 Serum or plasma aspartate aminotransfera se measurement (enzymatic activity/volume) 38 U/L 5-34 Serum or plasma alanine aminotransferase measurement (enzymatic activity/volume) 33 U/L 0-55 Serum or plasma protein measurement (mass/volume) 6.8 g/dL 6.4-8.2 Serum or plasma albumin measurement (mass/volume) 3.2 g/dL 3.2-4.5 CALCIUM CORRECTED 9.3 mg/dL 8.5-10.1 Blood manual differential performed dete ction - 10/27/18 05:25 Blood monocytes/100 leukocytes 6 % NRG Manual blood segmented neutrophils/100 leukocytes 79 % NRG Blood band neutrophils/100 leukocytes 8 % NRG Manual blood lymphocytes/100 leukocytes 7 % NRG Blood erythrocyte morphology finding identification NORMAL NRG Serum or plasma lithium measurement (mol es/volume) - 10/27/18 05:25 BNP level 544.0 pg/mL <100.0 Serum or plasma lactate measurement (mol es/volume) - 10/27/18 07:29 Serum or plasma lactate measurement (moles/volume) 2.13 mmol/L 0.50-2.00 Capillary blood glucose measurement by g lucometer (mass/volume) - 10/27/18 10:56 Capillary blood glucose measurement by glucometer (mas s/volume) 293 mg/dL 70-110 Capillary blood glucose measurement by g lucometer (mass/volume) - 10/27/18 16:07 Capillary blood glucose measurement by glucometer (mas s/volume) 308 mg/dL 70-110 Capillary blood glucose measurement by g lucometer (mass/volume) - 10/27/18 20:10 Capillary blood glucose measurement by glucometer (mas s/volume) 304 mg/dL 70-110 Capillary blood glucose measurement by g lucometer (mass/volume) - 10/28/18 05:28 Capillary blood glucose measurement by glucometer (mas s/volume) 264 mg/dL 70-110 Complete blood count (CBC) with automate d white blood cell (WBC) differential - 10/28/18 10:07 Blood leukocytes automated count (number/volume) 17.6 10*3/uL 4.3-11.0 Blood erythrocytes automated count (number/volume) 4.48 10*6/uL 4.35-5.85 Venous blood hemoglobin measurement (mass/volume) 12.7 g/dL 13.3-17.7 Blood hematocrit (volume fraction) 40 % 40-54 Automated erythrocyte mean corpuscular volume 90 [ foz_us] 80-99 Automated erythrocyte mean corpuscular h emoglobin (mass per erythrocyte) 28 pg 25-34 Automated erythrocyte mean corpuscular h emoglobin concentration measurement (mass/volume) 32 g/dL 32-36 Automated erythrocyte distribution width ratio 14. 6 % 10.0- 14.5 Automated blood platelet count (count/volume) 227 10*3/uL 130-400 Automated blood platelet mean volume measurement 11.0 [foz_us] 7.4-10.4 Automated blood neutrophils/100 leukocytes 84 % 42-75 Automated blood lymphocytes/100 leukocytes 8 % 12-44 Blood monocytes/100 leukocytes 7 % 0-12 Automated blood eosinophils/100 leukocytes 0 % 0-10 Automated blood basophils/100 leukocytes 0 % 0-10 Blood neutrophils automated count (number/volume) 14.7 10*3 1.8-7.8 Blood lymphocytes automated count (number/volume) 1.5 10*3 1.0-4.0 Blood monocytes automated count (number/volume) 1. 3 10*3 0.0-1.0 Automated eosinophil count 0.1 10*3/uL 0 .0-0.3 Automated blood basophil count (count/volume) 0.0 10*3/uL 0.0-0.1 Comprehensive metabolic panel - 10/28/18 10:07 Serum or plasma sodium measurement (moles/volume) 133 mmol/L 135-145 Serum or plasma potassium measurement (moles/volume) 3.8 mmol/L 3.6-5.0 Serum or plasma chloride measurement (moles/volume) 103 mmol/L 98-107 Carbon dioxide 18 mmol/L 21-32 Serum or plasma anion gap determination (moles/volume) 12 mmol/L 5-14 Serum or plasma urea nitrogen measurement (mass/volume ) 34 mg/dL 7-18 Serum or plasma creatinine measurement (mass/volume) 2.33 mg/dL 0.60-1.30 Serum or plasma urea nitrogen/creatinine mass ratio 15 NRG Serum or plasma creatinine measurement w ith calculation of estimated glomerular filtration rate 28 NRG Serum or plasma glucose measurement (mass/volume) 257 mg/dL 70-105 Serum or plasma calcium measurement (mass/volume) 8.1 mg/dL 8.5-10.1 Serum or plasma total bilirubin measurement (mass/volu me) 1.1 mg/dL 0.1-1.0 Serum or plasma alkaline phosphatase oneal surement (enzymatic activity/volume) 238 U/L 40-136 Serum or plasma aspartate aminotransfera se measurement (enzymatic activity/volume) 91 U/L 5-34 Serum or plasma alanine aminotransferase measurement (enzymatic activity/volume) 55 U/L 0-55 Serum or plasma protein measurement (mass/volume) 6.8 g/dL 6.4-8.2 Serum or plasma albumin measurement (mass/volume) 3.1 g/dL 3.2-4.5 CALCIUM CORRECTED 8.8 mg/dL 8.5-10.1 Serum or plasma lithium measurement (mol es/volume) - 10/28/18 10:07 BNP level 538.6 pg/mL <100.0 Vancomycin trough - 10/28/18 10:07 Vancomycin trough 25.6 ug/mL 10.0-20.0 Capillary blood glucose measurement by g lucometer (mass/volume) - 10/28/18 11:18 Capillary blood glucose measurement by glucometer (mas s/volume) 248 mg/dL 70-110 Blood lactic acid measurement (moles/vol ume) - 10/28/18 13:38 Blood lactic acid measurement (moles/volume) 2.00 mmol/L 0.50-2.00 Complete blood count (CBC) with automate d white blood cell (WBC) differential - 10/28/18 15:50 Blood leukocytes automated count (number/volume) 15.8 10*3/uL 4.3-11.0 Blood erythrocytes automated count (number/volume) 5.15 10*6/uL 4.35-5.85 Venous blood hemoglobin measurement (mass/volume) 14.6 g/dL 13.3-17.7 Blood hematocrit (volume fraction) 46 % 40-54 Automated erythrocyte mean corpuscular volume 90 [ foz_us] 80-99 Automated erythrocyte mean corpuscular h emoglobin (mass per erythrocyte) 28 pg 25-34 Automated erythrocyte mean corpuscular h emoglobin concentration measurement (mass/volume) 32 g/dL 32-36 Automated erythrocyte distribution width ratio 14. 7 % 10.0- 14.5 Automated blood platelet count (count/volume) 192 10*3/uL 130-400 Automated blood platelet mean volume measurement 11.2 [foz_us] 7.4-10.4 Automated blood neutrophils/100 leukocytes 83 % 42-75 Automated blood lymphocytes/100 leukocytes 9 % 12-44 Blood monocytes/100 leukocytes 8 % 0-12 Automated blood eosinophils/100 leukocytes 0 % 0-10 Automated blood basophils/100 leukocytes 0 % 0-10 Blood neutrophils automated count (number/volume) 13.0 10*3 1.8-7.8 Blood lymphocytes automated count (number/volume) 1.5 10*3 1.0-4.0 Blood monocytes automated count (number/volume) 1. 2 10*3 0.0-1.0 Automated eosinophil count 0.1 10*3/uL 0 .0-0.3 Automated blood basophil count (count/volume) 0.0 10*3/uL 0.0-0.1 Comprehensive metabolic panel - 10/28/18 15:50 Serum or plasma sodium measurement (moles/volume) 132 mmol/L 135-145 Serum or plasma potassium measurement (moles/volume) 4.1 mmol/L 3.6-5.0 Serum or plasma chloride measurement (moles/volume) 105 mmol/L 98-107 Carbon dioxide 15 mmol/L 21-32 Serum or plasma anion gap determination (moles/volume) 12 mmol/L 5-14 Serum or plasma urea nitrogen measurement (mass/volume ) 36 mg/dL 7-18 Serum or plasma creatinine measurement (mass/volume) 2.52 mg/dL 0.60-1.30 Serum or plasma urea nitrogen/creatinine mass ratio 14 NRG Serum or plasma creatinine measurement w ith calculation of estimated glomerular filtration rate 26 NRG Serum or plasma glucose measurement (mass/volume) 296 mg/dL 70-105 Serum or plasma calcium measurement (mass/volume) 8.3 mg/dL 8.5-10.1 Serum or plasma total bilirubin measurement (mass/volu me) 0.9 mg/dL 0.1-1.0 Serum or plasma alkaline phosphatase oneal surement (enzymatic activity/volume) 260 U/L 40-136 Serum or plasma aspartate aminotransfera se measurement (enzymatic activity/volume) 105 U/L 5-34 Serum or plasma alanine aminotransferase measurement (enzymatic activity/volume) 59 U/L 0-55 Serum or plasma protein measurement (mass/volume) 7.0 g/dL 6.4-8.2 Serum or plasma albumin measurement (mass/volume) 3.2 g/dL 3.2-4.5 CALCIUM CORRECTED 8.9 mg/dL 8.5-10.1 Blood manual differential performed dete ction - 10/28/18 15:50 Blood monocytes/100 leukocytes 10 % NRG Manual blood segmented neutrophils/100 leukocytes 75 % NRG Blood band neutrophils/100 leukocytes 5 % NRG Manual blood lymphocytes/100 leukocytes 9 % NRG Blood polychromasia detection by light microscopy SLIGHT NRG Manual blood metamyelocytes/100 leukocytes 2 % NRG Capillary blood glucose measurement by g lucometer (mass/volume) - 10/28/18 16:38 Capillary blood glucose measurement by glucometer (mas s/volume) 265 mg/dL 70-110 Complete blood count (CBC) with automate d white blood cell (WBC) differential - 10/28/18 19:27 Blood leukocytes automated count (number/volume) 16.4 10*3/uL 4.3-11.0 Blood erythrocytes automated count (number/volume) 4.69 10*6/uL 4.35-5.85 Venous blood hemoglobin measurement (mass/volume) 13.4 g/dL 13.3-17.7 Blood hematocrit (volume fraction) 42 % 40-54 Automated erythrocyte mean corpuscular volume 89 [ foz_us] 80-99 Automated erythrocyte mean corpuscular h emoglobin (mass per erythrocyte) 29 pg 25-34 Automated erythrocyte mean corpuscular h emoglobin concentration measurement (mass/volume) 32 g/dL 32-36 Automated erythrocyte distribution width ratio 14. 5 % 10.0- 14.5 Automated blood platelet count (count/volume) 198 10*3/uL 130-400 Automated blood platelet mean volume measurement 10.8 [foz_us] 7.4-10.4 Automated blood neutrophils/100 leukocytes 83 % 42-75 Automated blood lymphocytes/100 leukocytes 9 % 12-44 Blood monocytes/100 leukocytes 8 % 0-12 Automated blood eosinophils/100 leukocytes 0 % 0-10 Automated blood basophils/100 leukocytes 0 % 0-10 Blood neutrophils automated count (number/volume) 13.6 10*3 1.8-7.8 Blood lymphocytes automated count (number/volume) 1.5 10*3 1.0-4.0 Blood monocytes automated count (number/volume) 1. 2 10*3 0.0-1.0 Automated eosinophil count 0.1 10*3/uL 0 .0-0.3 Automated blood basophil count (count/volume) 0.0 10*3/uL 0.0-0.1 Blood blood smear finding identification by light micr oscopy YES NRG PT panel in platelet poor plasma by coag ulation assay - 10/28/18 19:27 Prothrombin time (PT) in platelet poor plasma by coagu lation assay 16.5 s 12.2-14.7 INR in platelet poor plasma or blood by coagulation as say 1.3 0.8-1.4 Activated partial thromboplastin time (a PTT) in platelet poor plasma bycoagulation assay - 10/28/18 19:27 Activated partial thromboplastin time (a PTT) in platelet poor plasma bycoagulation assay 39 s 24-35 Comprehensive metabolic panel - 10/28/18 19:27 Serum or plasma sodium measurement (moles/volume) 134 mmol/L 135-145 Serum or plasma potassium measurement (moles/volume) 3.9 mmol/L 3.6-5.0 Serum or plasma chloride measurement (moles/volume) 104 mmol/L 98-107 Carbon dioxide 18 mmol/L 21-32 Serum or plasma anion gap determination (moles/volume) 12 mmol/L 5-14 Serum or plasma urea nitrogen measurement (mass/volume ) 38 mg/dL 7-18 Serum or plasma creatinine measurement (mass/volume) 2.72 mg/dL 0.60-1.30 Serum or plasma urea nitrogen/creatinine mass ratio 14 NRG Serum or plasma creatinine measurement w ith calculation of estimated glomerular filtration rate 24 NRG Serum or plasma glucose measurement (mass/volume) 276 mg/dL 70-105 Serum or plasma calcium measurement (mass/volume) 8.2 mg/dL 8.5-10.1 Serum or plasma total bilirubin measurement (mass/volu me) 0.7 mg/dL 0.1-1.0 Serum or plasma alkaline phosphatase oneal surement (enzymatic activity/volume) 244 U/L 40-136 Serum or plasma aspartate aminotransfera se measurement (enzymatic activity/volume) 86 U/L 5-34 Serum or plasma alanine aminotransferase measurement (enzymatic activity/volume) 56 U/L 0-55 Serum or plasma protein measurement (mass/volume) 6.6 g/dL 6.4-8.2 Serum or plasma albumin measurement (mass/volume) 3.0 g/dL 3.2-4.5 CALCIUM CORRECTED 9.0 mg/dL 8.5-10.1 Capillary blood glucose measurement by g lucometer (mass/volume) - 10/28/18 20:41 Capillary blood glucose measurement by glucometer (mas s/volume) 241 mg/dL 70-110 Complete blood count (CBC) with automate d white blood cell (WBC) differential - 10/29/18 03:20 Blood leukocytes automated count (number/volume) 15.3 10*3/uL 4.3-11.0 Blood erythrocytes automated count (number/volume) 4.84 10*6/uL 4.35-5.85 Venous blood hemoglobin measurement (mass/volume) 13.5 g/dL 13.3-17.7 Blood hematocrit (volume fraction) 43 % 40-54 Automated erythrocyte mean corpuscular volume 90 [ foz_us] 80-99 Automated erythrocyte mean corpuscular h emoglobin (mass per erythrocyte) 28 pg 25-34 Automated erythrocyte mean corpuscular h emoglobin concentration measurement (mass/volume) 31 g/dL 32-36 Automated erythrocyte distribution width ratio 14. 5 % 10.0- 14.5 Automated blood platelet count (count/volume) 231 10*3/uL 130-400 Automated blood platelet mean volume measurement 11.2 [foz_us] 7.4-10.4 Automated blood neutrophils/100 leukocytes 79 % 42-75 Automated blood lymphocytes/100 leukocytes 12 % 12-44 Blood monocytes/100 leukocytes 8 % 0-12 Automated blood eosinophils/100 leukocytes 1 % 0-10 Automated blood basophils/100 leukocytes 0 % 0-10 Blood neutrophils automated count (number/volume) 12.1 10*3 1.8-7.8 Blood lymphocytes automated count (number/volume) 1.9 10*3 1.0-4.0 Blood monocytes automated count (number/volume) 1. 2 10*3 0.0-1.0 Automated eosinophil count 0.1 10*3/uL 0 .0-0.3 Automated blood basophil count (count/volume) 0.0 10*3/uL 0.0-0.1 Comprehensive metabolic panel - 10/29/18 03:20 Serum or plasma sodium measurement (moles/volume) 135 mmol/L 135-145 Serum or plasma potassium measurement (moles/volume) 4.1 mmol/L 3.6-5.0 Serum or plasma chloride measurement (moles/volume) 104 mmol/L 98-107 Carbon dioxide 18 mmol/L 21-32 Serum or plasma anion gap determination (moles/volume) 13 mmol/L 5-14 Serum or plasma urea nitrogen measurement (mass/volume ) 39 mg/dL 7-18 Serum or plasma creatinine measurement (mass/volume) 2.86 mg/dL 0.60-1.30 Serum or plasma urea nitrogen/creatinine mass ratio 14 NRG Serum or plasma creatinine measurement w ith calculation of estimated glomerular filtration rate 22 NRG Serum or plasma glucose measurement (mass/volume) 231 mg/dL 70-105 Serum or plasma calcium measurement (mass/volume) 8.5 mg/dL 8.5-10.1 Serum or plasma total bilirubin measurement (mass/volu me) 0.6 mg/dL 0.1-1.0 Serum or plasma alkaline phosphatase oneal surement (enzymatic activity/volume) 251 U/L 40-136 Serum or plasma aspartate aminotransfera se measurement (enzymatic activity/volume) 57 U/L 5-34 Serum or plasma alanine aminotransferase measurement (enzymatic activity/volume) 50 U/L 0-55 Serum or plasma protein measurement (mass/volume) 6.7 g/dL 6.4-8.2 Serum or plasma albumin measurement (mass/volume) 3.1 g/dL 3.2-4.5 CALCIUM CORRECTED 9.2 mg/dL 8.5-10.1 Serum or plasma lithium measurement (mol es/volume) - 10/29/18 03:20 BNP level 759.6 pg/mL <100.0 Capillary blood glucose measurement by g lucometer (mass/volume) - 10/29/18 11:28 Capillary blood glucose measurement by glucometer (mas s/volume) 222 mg/dL 70-110 Capillary blood glucose measurement by g lucometer (mass/volume) - 10/29/18 16:15 Capillary blood glucose measurement by glucometer (mas s/volume) 218 mg/dL 70-110 C DIFFICILE AG + TOXIN A/B. - 10/29/18 1 9:20 RESULTS NEGATIVE FOR ANTIGEN AND TOXIN A/B NRG Capillary blood glucose measurement by g lucometer (mass/volume) - 10/29/18 20:43 Capillary blood glucose measurement by glucometer (mas s/volume) 233 mg/dL 70-110 Complete blood count (CBC) with automate d white blood cell (WBC) differential - 10/30/18 03:55 Blood leukocytes automated count (number/volume) 10.6 10*3/uL 4.3-11.0 Blood erythrocytes automated count (number/volume) 4.83 10*6/uL 4.35-5.85 Venous blood hemoglobin measurement (mass/volume) 13.5 g/dL 13.3-17.7 Blood hematocrit (volume fraction) 43 % 40-54 Automated erythrocyte mean corpuscular volume 89 [ foz_us] 80-99 Automated erythrocyte mean corpuscular h emoglobin (mass per erythrocyte) 28 pg 25-34 Automated erythrocyte mean corpuscular h emoglobin concentration measurement (mass/volume) 32 g/dL 32-36 Automated erythrocyte distribution width ratio 14. 9 % 10.0- 14.5 Automated blood platelet count (count/volume) 259 10*3/uL 130-400 Automated blood platelet mean volume measurement 10.5 [foz_us] 7.4-10.4 Automated blood neutrophils/100 leukocytes 80 % 42-75 Automated blood lymphocytes/100 leukocytes 11 % 12-44 Blood monocytes/100 leukocytes 7 % 0-12 Automated blood eosinophils/100 leukocytes 2 % 0-10 Automated blood basophils/100 leukocytes 0 % 0-10 Blood neutrophils automated count (number/volume) 8.4 10*3 1.8-7.8 Blood lymphocytes automated count (number/volume) 1.2 10*3 1.0-4.0 Blood monocytes automated count (number/volume) 0. 7 10*3 0.0-1.0 Automated eosinophil count 0.2 10*3/uL 0 .0-0.3 Automated blood basophil count (count/volume) 0.0 10*3/uL 0.0-0.1 Whole blood basic metabolic panel - 01/11 03:55 Serum or plasma sodium measurement (moles/volume) 133 mmol/L 135-145 Serum or plasma potassium measurement (moles/volume) 3.6 mmol/L 3.6-5.0 Serum or plasma chloride measurement (moles/volume) 105 mmol/L 98-107 Carbon dioxide 16 mmol/L 21-32 Serum or plasma anion gap determination (moles/volume) 12 mmol/L 5-14 Serum or plasma urea nitrogen measurement (mass/volume ) 37 mg/dL 7-18 Serum or plasma creatinine measurement (mass/volume) 2.36 mg/dL 0.60-1.30 Serum or plasma urea nitrogen/creatinine mass ratio 16 NRG Serum or plasma creatinine measurement w ith calculation of estimated glomerular filtration rate 28 NRG Serum or plasma glucose measurement (mass/volume) 184 mg/dL 70-105 Serum or plasma calcium measurement (mass/volume) 8.0 mg/dL 8.5-10.1 Serum or plasma phosphate measurement (m ass/volume) - 10/30/18 03:55 Serum or plasma phosphate measurement (mass/volume) 3.3 mg/dL 2.3-4.7 Magnesium - 10/30/18 03:55 Magnesium 1.6 mg/dL 1.8-2.4 Complete urinalysis with reflex to cultu re - 10/30/18 06:05 Urine color determination ABDIRAHMAN NRG Urine clarity determination SLIGHTLY CLOUDY NRG Urine pH measurement by test strip 5 5-9 Specific gravity of urine by test strip 1.020 1.016-1.022 Urine protein assay by test strip, semi-quantitative 3+ NEGATIVE Urine glucose detection by automated test strip NE GATIVE NEGATIVE Erythrocytes detection in urine sediment by light micr oscopy 5+ NEGATIVE Urine ketones detection by automated test strip 1+ NEGATIVE Urine nitrite detection by test strip NEGATIVE NEGATIVE Urine total bilirubin detection by test strip NEGA TIVE NEGATIVE Urine urobilinogen measurement by automated test strip (mass/volume) NORMAL NORMAL Urine leukocyte esterase detection by dipstick 2+ NEGATIVE Automated urine sediment erythrocyte cou nt by microscopy (number/high power field) > [HPF] NRG Automated urine sediment leukocyte count by microscopy (number/high power field) [HPF] NRG Bacteria detection in urine sediment by light microsco py TRACE NRG Squamous epithelial cells detection in u rine sediment by light microscopy 2-5 NRG Crystals detection in urine sediment by light microsco py PRESENT NRG Casts detection in urine sediment by light microscopy NONE NRG Mucus detection in urine sediment by light microscopy NEGATIVE NRG Complete urinalysis with reflex to culture YES NRG Uric acid crystals detection in urine sediment by ligh t microscopy MODERATE NRG Bacterial urine culture - 10/30/18 06:05 Bacterial urine culture NG NRG Methicillin resistant Staphylococcus aur eus (MRSA) screening culture - 10/30/18 06:51 Methicillin resistant Staphylococcus aureus (MRSA) scr eening culture NEG NRG Capillary blood glucose measurement by g lucometer (mass/volume) - 10/30/18 11:35 Capillary blood glucose measurement by glucometer (mas s/volume) 172 mg/dL 70-110 Capillary blood glucose measurement by g lucometer (mass/volume) - 10/30/18 15:59 Capillary blood glucose measurement by glucometer (mas s/volume) 180 mg/dL 70-110 Capillary blood glucose measurement by g lucometer (mass/volume) - 10/30/18 20:49 Capillary blood glucose measurement by glucometer (mas s/volume) 187 mg/dL 70-110 Complete blood count (CBC) with automate d white blood cell (WBC) differential - 10/31/18 03:30 Blood leukocytes automated count (number/volume) 8.4 10*3/uL 4.3-11.0 Blood erythrocytes automated count (number/volume) 4.48 10*6/uL 4.35-5.85 Venous blood hemoglobin measurement (mass/volume) 12.6 g/dL 13.3-17.7 Blood hematocrit (volume fraction) 40 % 40-54 Automated erythrocyte mean corpuscular volume 90 [ foz_us] 80-99 Automated erythrocyte mean corpuscular h emoglobin (mass per erythrocyte) 28 pg 25-34 Automated erythrocyte mean corpuscular h emoglobin concentration measurement (mass/volume) 31 g/dL 32-36 Automated erythrocyte distribution width ratio 14. 9 % 10.0- 14.5 Automated blood platelet count (count/volume) 225 10*3/uL 130-400 Automated blood platelet mean volume measurement 10.1 [foz_us] 7.4-10.4 Automated blood neutrophils/100 leukocytes 76 % 42-75 Automated blood lymphocytes/100 leukocytes 14 % 12-44 Blood monocytes/100 leukocytes 8 % 0-12 Automated blood eosinophils/100 leukocytes 2 % 0-10 Automated blood basophils/100 leukocytes 0 % 0-10 Blood neutrophils automated count (number/volume) 6.3 10*3 1.8-7.8 Blood lymphocytes automated count (number/volume) 1.2 10*3 1.0-4.0 Blood monocytes automated count (number/volume) 0. 6 10*3 0.0-1.0 Automated eosinophil count 0.2 10*3/uL 0 .0-0.3 Automated blood basophil count (count/volume) 0.0 10*3/uL 0.0-0.1 Whole blood basic metabolic panel - 02/11 03:30 Serum or plasma sodium measurement (moles/volume) 140 mmol/L 135-145 Serum or plasma potassium measurement (moles/volume) 3.7 mmol/L 3.6-5.0 Serum or plasma chloride measurement (moles/volume) 109 mmol/L 98-107 Carbon dioxide 17 mmol/L 21-32 Serum or plasma anion gap determination (moles/volume) 14 mmol/L 5-14 Serum or plasma urea nitrogen measurement (mass/volume ) 30 mg/dL 7-18 Serum or plasma creatinine measurement (mass/volume) 1.91 mg/dL 0.60-1.30 Serum or plasma urea nitrogen/creatinine mass ratio 16 NRG Serum or plasma creatinine measurement w ith calculation of estimated glomerular filtration rate 36 NRG Serum or plasma glucose measurement (mass/volume) 166 mg/dL 70-105 Serum or plasma calcium measurement (mass/volume) 8.0 mg/dL 8.5-10.1 Serum or plasma phosphate measurement (m ass/volume) - 10/31/18 03:30 Serum or plasma phosphate measurement (mass/volume) 2.9 mg/dL 2.3-4.7 Magnesium - 10/31/18 03:30 Magnesium 1.6 mg/dL 1.8-2.4 Capillary blood glucose measurement by g lucometer (mass/volume) - 10/31/18 11:32 Capillary blood glucose measurement by glucometer (mas s/volume) 182 mg/dL 70-110 Capillary blood glucose measurement by g lucometer (mass/volume) - 10/31/18 16:08 Capillary blood glucose measurement by glucometer (mas s/volume) 224 mg/dL 70-110 Capillary blood glucose measurement by g lucometer (mass/volume) - 10/31/18 20:59 Capillary blood glucose measurement by glucometer (mas s/volume) 197 mg/dL 70-110 Capillary blood glucose measurement by g lucometer (mass/volume) - 11/01/18 05:11 Capillary blood glucose measurement by glucometer (mas s/volume) 168 mg/dL 70-110 Complete blood count (CBC) with automate d white blood cell (WBC) differential - 11/01/18 07:15 Blood leukocytes automated count (number/volume) 10.1 10*3/uL 4.3-11.0 Blood erythrocytes automated count (number/volume) 4.56 10*6/uL 4.35-5.85 Venous blood hemoglobin measurement (mass/volume) 12.7 g/dL 13.3-17.7 Blood hematocrit (volume fraction) 41 % 40-54 Automated erythrocyte mean corpuscular volume 89 [ foz_us] 80-99 Automated erythrocyte mean corpuscular h emoglobin (mass per erythrocyte) 28 pg 25-34 Automated erythrocyte mean corpuscular h emoglobin concentration measurement (mass/volume) 31 g/dL 32-36 Automated erythrocyte distribution width ratio 14. 9 % 10.0- 14.5 Automated blood platelet count (count/volume) 265 10*3/uL 130-400 Automated blood platelet mean volume measurement 9.8 [foz_us] 7.4-10.4 Automated blood neutrophils/100 leukocytes 78 % 42-75 Automated blood lymphocytes/100 leukocytes 12 % 12-44 Blood monocytes/100 leukocytes 8 % 0-12 Automated blood eosinophils/100 leukocytes 1 % 0-10 Automated blood basophils/100 leukocytes 0 % 0-10 Blood neutrophils automated count (number/volume) 7.9 10*3 1.8-7.8 Blood lymphocytes automated count (number/volume) 1.2 10*3 1.0-4.0 Blood monocytes automated count (number/volume) 0. 8 10*3 0.0-1.0 Automated eosinophil count 0.1 10*3/uL 0 .0-0.3 Automated blood basophil count (count/volume) 0.0 10*3/uL 0.0-0.1 Whole blood basic metabolic panel - 03/14 07:15 Serum or plasma sodium measurement (moles/volume) 137 mmol/L 135-145 Serum or plasma potassium measurement (moles/volume) 3.4 mmol/L 3.6-5.0 Serum or plasma chloride measurement (moles/volume) 108 mmol/L 98-107 Carbon dioxide 18 mmol/L 21-32 Serum or plasma anion gap determination (moles/volume) 11 mmol/L 5-14 Serum or plasma urea nitrogen measurement (mass/volume ) 22 mg/dL 7-18 Serum or plasma creatinine measurement (mass/volume) 1.79 mg/dL 0.60-1.30 Serum or plasma urea nitrogen/creatinine mass ratio 12 NRG Serum or plasma creatinine measurement w ith calculation of estimated glomerular filtration rate 38 NRG Serum or plasma glucose measurement (mass/volume) 183 mg/dL 70-105 Serum or plasma calcium measurement (mass/volume) 8.1 mg/dL 8.5-10.1 Serum or plasma phosphate measurement (m ass/volume) - 11/01/18 07:15 Serum or plasma phosphate measurement (mass/volume) 2.1 mg/dL 2.3-4.7 Magnesium - 11/01/18 07:15 Magnesium 1.7 mg/dL 1.8-2.4 Capillary blood glucose measurement by g lucometer (mass/volume) - 11/01/18 11:10 Capillary blood glucose measurement by glucometer (mas s/volume) 189 mg/dL 70-110 Capillary blood glucose measurement by g lucometer (mass/volume) - 11/01/18 15:55 Capillary blood glucose measurement by glucometer (mas s/volume) 223 mg/dL 70-110 Capillary blood glucose measurement by g lucometer (mass/volume) - 11/01/18 20:34 Capillary blood glucose measurement by glucometer (mas s/volume) 206 mg/dL 70-110 Complete blood count (CBC) with automate d white blood cell (WBC) differential - 11/02/18 06:15 Blood leukocytes automated count (number/volume) 10.4 10*3/uL 4.3-11.0 Blood erythrocytes automated count (number/volume) 4.48 10*6/uL 4.35-5.85 Venous blood hemoglobin measurement (mass/volume) 12.6 g/dL 13.3-17.7 Blood hematocrit (volume fraction) 40 % 40-54 Automated erythrocyte mean corpuscular volume 89 [ foz_us] 80-99 Automated erythrocyte mean corpuscular h emoglobin (mass per erythrocyte) 28 pg 25-34 Automated erythrocyte mean corpuscular h emoglobin concentration measurement (mass/volume) 32 g/dL 32-36 Automated erythrocyte distribution width ratio 14. 9 % 10.0- 14.5 Automated blood platelet count (count/volume) 226 10*3/uL 130-400 Automated blood platelet mean volume measurement 9.7 [foz_us] 7.4-10.4 Automated blood neutrophils/100 leukocytes 78 % 42-75 Automated blood lymphocytes/100 leukocytes 14 % 12-44 Blood monocytes/100 leukocytes 8 % 0-12 Automated blood eosinophils/100 leukocytes 1 % 0-10 Automated blood basophils/100 leukocytes 0 % 0-10 Blood neutrophils automated count (number/volume) 8.1 10*3 1.8-7.8 Blood lymphocytes automated count (number/volume) 1.4 10*3 1.0-4.0 Blood monocytes automated count (number/volume) 0. 8 10*3 0.0-1.0 Automated eosinophil count 0.1 10*3/uL 0 .0-0.3 Automated blood basophil count (count/volume) 0.0 10*3/uL 0.0-0.1 Whole blood basic metabolic panel - 10/24 06:15 Serum or plasma sodium measurement (moles/volume) 141 mmol/L 135-145 Serum or plasma potassium measurement (moles/volume) 3.3 mmol/L 3.6-5.0 Serum or plasma chloride measurement (moles/volume) 112 mmol/L 98-107 Carbon dioxide 19 mmol/L 21-32 Serum or plasma anion gap determination (moles/volume) 10 mmol/L 5-14 Serum or plasma urea nitrogen measurement (mass/volume ) 17 mg/dL 7-18 Serum or plasma creatinine measurement (mass/volume) 1.61 mg/dL 0.60-1.30 Serum or plasma urea nitrogen/creatinine mass ratio 11 NRG Serum or plasma creatinine measurement w ith calculation of estimated glomerular filtration rate 43 NRG Serum or plasma glucose measurement (mass/volume) 178 mg/dL 70-105 Serum or plasma calcium measurement (mass/volume) 8.3 mg/dL 8.5-10.1 Serum or plasma phosphate measurement (m ass/volume) - 11/02/18 06:15 Serum or plasma phosphate measurement (mass/volume) 2.2 mg/dL 2.3-4.7 Magnesium - 11/02/18 06:15 Magnesium 1.6 mg/dL 1.8-2.4 Capillary blood glucose measurement by g lucometer (mass/volume) - 11/02/18 06:25 Capillary blood glucose measurement by glucometer (mas s/volume) 170 mg/dL 70-110 Capillary blood glucose measurement by g lucometer (mass/volume) - 11/02/18 11:10 Capillary blood glucose measurement by glucometer (mas s/volume) 206 mg/dL 70-110 Capillary blood glucose measurement by g lucometer (mass/volume) - 11/02/18 15:49 Capillary blood glucose measurement by glucometer (mas s/volume) 210 mg/dL 70-110 Capillary blood glucose measurement by g lucometer (mass/volume) - 11/02/18 20:04 Capillary blood glucose measurement by glucometer (mas s/volume) 135 mg/dL 70-110 Capillary blood glucose measurement by g lucometer (mass/volume) - 11/03/18 05:28 Capillary blood glucose measurement by glucometer (mas s/volume) 153 mg/dL 70-110 Complete blood count (CBC) with automate d white blood cell (WBC) differential - 11/03/18 05:50 Blood leukocytes automated count (number/volume) 11.2 10*3/uL 4.3-11.0 Blood erythrocytes automated count (number/volume) 4.51 10*6/uL 4.35-5.85 Venous blood hemoglobin measurement (mass/volume) 12.6 g/dL 13.3-17.7 Blood hematocrit (volume fraction) 40 % 40-54 Automated erythrocyte mean corpuscular volume 89 [ foz_us] 80-99 Automated erythrocyte mean corpuscular h emoglobin (mass per erythrocyte) 28 pg 25-34 Automated erythrocyte mean corpuscular h emoglobin concentration measurement (mass/volume) 31 g/dL 32-36 Automated erythrocyte distribution width ratio 15. 1 % 10.0- 14.5 Automated blood platelet count (count/volume) 231 10*3/uL 130-400 Automated blood platelet mean volume measurement 9.5 [foz_us] 7.4-10.4 Automated blood neutrophils/100 leukocytes 77 % 42-75 Automated blood lymphocytes/100 leukocytes 13 % 12-44 Blood monocytes/100 leukocytes 8 % 0-12 Automated blood eosinophils/100 leukocytes 1 % 0-10 Automated blood basophils/100 leukocytes 0 % 0-10 Blood neutrophils automated count (number/volume) 8.7 10*3 1.8-7.8 Blood lymphocytes automated count (number/volume) 1.5 10*3 1.0-4.0 Blood monocytes automated count (number/volume) 0. 9 10*3 0.0-1.0 Automated eosinophil count 0.2 10*3/uL 0 .0-0.3 Automated blood basophil count (count/volume) 0.0 10*3/uL 0.0-0.1 Whole blood basic metabolic panel - 10/24 07/14 05:50 Serum or plasma sodium measurement (moles/volume) 140 mmol/L 135-145 Serum or plasma potassium measurement (moles/volume) 3.6 mmol/L 3.6-5.0 Serum or plasma chloride measurement (moles/volume) 111 mmol/L 98-107 Carbon dioxide 19 mmol/L 21-32 Serum or plasma anion gap determination (moles/volume) 10 mmol/L 5-14 Serum or plasma urea nitrogen measurement (mass/volume ) 16 mg/dL 7-18 Serum or plasma creatinine measurement (mass/volume) 1.54 mg/dL 0.60-1.30 Serum or plasma urea nitrogen/creatinine mass ratio 10 NRG Serum or plasma creatinine measurement w ith calculation of estimated glomerular filtration rate 46 NRG Serum or plasma glucose measurement (mass/volume) 155 mg/dL 70-105 Serum or plasma calcium measurement (mass/volume) 8.2 mg/dL 8.5-10.1 Serum or plasma phosphate measurement (m ass/volume) - 11/03/18 05:50 Serum or plasma phosphate measurement (mass/volume) 2.2 mg/dL 2.3-4.7 Magnesium - 11/03/18 05:50 Magnesium 1.7 mg/dL 1.8-2.4 Capillary blood glucose measurement by g lucometer (mass/volume) - 11/03/18 07:40 Capillary blood glucose measurement by glucometer (mas s/volume) 154 mg/dL 70-110 Capillary blood glucose measurement by g lucometer (mass/volume) - 11/03/18 11:07 Capillary blood glucose measurement by glucometer (mas s/volume) 223 mg/dL 70-110 Capillary blood glucose measurement by g lucometer (mass/volume) - 11/03/18 15:49 Capillary blood glucose measurement by glucometer (mas s/volume) 199 mg/dL 70-110 Capillary blood glucose measurement by g lucometer (mass/volume) - 11/03/18 21:03 Capillary blood glucose measurement by glucometer (mas s/volume) 214 mg/dL 70-110 Complete blood count (CBC) with automate d white blood cell (WBC) differential - 11/04/18 05:17 Blood leukocytes automated count (number/volume) 10.3 10*3/uL 4.3-11.0 Blood erythrocytes automated count (number/volume) 4.55 10*6/uL 4.35-5.85 Venous blood hemoglobin measurement (mass/volume) 12.8 g/dL 13.3-17.7 Blood hematocrit (volume fraction) 41 % 40-54 Automated erythrocyte mean corpuscular volume 90 [ foz_us] 80-99 Automated erythrocyte mean corpuscular h emoglobin (mass per erythrocyte) 28 pg 25-34 Automated erythrocyte mean corpuscular h emoglobin concentration measurement (mass/volume) 31 g/dL 32-36 Automated erythrocyte distribution width ratio 15. 1 % 10.0- 14.5 Automated blood platelet count (count/volume) 226 10*3/uL 130-400 Automated blood platelet mean volume measurement 9.7 [foz_us] 7.4-10.4 Automated blood neutrophils/100 leukocytes 74 % 42-75 Automated blood lymphocytes/100 leukocytes 16 % 12-44 Blood monocytes/100 leukocytes 8 % 0-12 Automated blood eosinophils/100 leukocytes 1 % 0-10 Automated blood basophils/100 leukocytes 0 % 0-10 Blood neutrophils automated count (number/volume) 7.6 10*3 1.8-7.8 Blood lymphocytes automated count (number/volume) 1.7 10*3 1.0-4.0 Blood monocytes automated count (number/volume) 0. 8 10*3 0.0-1.0 Automated eosinophil count 0.1 10*3/uL 0 .0-0.3 Automated blood basophil count (count/volume) 0.0 10*3/uL 0.0-0.1 Whole blood basic metabolic panel - 10/24 08/14 05:17 Serum or plasma sodium measurement (moles/volume) 141 mmol/L 135-145 Serum or plasma potassium measurement (moles/volume) 3.8 mmol/L 3.6-5.0 Serum or plasma chloride measurement (moles/volume) 110 mmol/L 98-107 Carbon dioxide 20 mmol/L 21-32 Serum or plasma anion gap determination (moles/volume) 11 mmol/L 5-14 Serum or plasma urea nitrogen measurement (mass/volume ) 15 mg/dL 7-18 Serum or plasma creatinine measurement (mass/volume) 1.69 mg/dL 0.60-1.30 Serum or plasma urea nitrogen/creatinine mass ratio 9 NRG Serum or plasma creatinine measurement w ith calculation of estimated glomerular filtration rate 41 NRG Serum or plasma glucose measurement (mass/volume) 183 mg/dL 70-105 Serum or plasma calcium measurement (mass/volume) 8.6 mg/dL 8.5-10.1 Serum or plasma phosphate measurement (m ass/volume) - 11/04/18 05:17 Serum or plasma phosphate measurement (mass/volume) 2.7 mg/dL 2.3-4.7 Magnesium - 11/04/18 05:17 Magnesium 1.6 mg/dL 1.8-2.4 Capillary blood glucose measurement by g lucometer (mass/volume) - 11/04/18 11:44 Capillary blood glucose measurement by glucometer (mas s/volume) 214 mg/dL 70-110 Capillary blood glucose measurement by g lucometer (mass/volume) - 11/04/18 15:45 Capillary blood glucose measurement by glucometer (mas s/volume) 218 mg/dL 70-110 Capillary blood glucose measurement by g lucometer (mass/volume) - 11/04/18 19:52 Capillary blood glucose measurement by glucometer (mas s/volume) 244 mg/dL 70-110 Whole blood basic metabolic panel - 10/24 09/11 05:10 Serum or plasma sodium measurement (moles/volume) 140 mmol/L 135-145 Serum or plasma potassium measurement (moles/volume) 4.2 mmol/L 3.6-5.0 Serum or plasma chloride measurement (moles/volume) 110 mmol/L 98-107 Carbon dioxide 19 mmol/L 21-32 Serum or plasma anion gap determination (moles/volume) 11 mmol/L 5-14 Serum or plasma urea nitrogen measurement (mass/volume ) 18 mg/dL 7-18 Serum or plasma creatinine measurement (mass/volume) 1.72 mg/dL 0.60-1.30 Serum or plasma urea nitrogen/creatinine mass ratio 10 NRG Serum or plasma creatinine measurement w ith calculation of estimated glomerular filtration rate 40 NRG Serum or plasma glucose measurement (mass/volume) 189 mg/dL 70-105 Serum or plasma calcium measurement (mass/volume) 8.7 mg/dL 8.5-10.1 Arterial blood gas measurement - 9 23:37 Blood pCO2 40 mm[Hg] 35-45 Blood pO2 104 mm[Hg] 79-93 Arterial blood bicarbonate measurement (moles/volume) 21 mmol/L 23-27 Arterial blood base excess by calculation -3.0 mmo l/L -2.5-2.5 Arterial blood oxygen saturation measurement 78 % 94-100 * Inhaled oxygen flow rate 3L NRG Arterial blood pH measurement with patient temperature correction 7.36 7.37-7.43 Arterial blood carbon dioxide, total measurement (mole s/volume) 22.2 mmol/L 21.0-31.0 Body site LEFT RADIAL NRG Assessment of wrist artery patency prior to arterial p uncture YES-POS NRG Setting of ventilation mode NO NR G Measurement of body temperature 103.0 NRG Complete urinalysis with reflex to cultu re - 12/21/18 23:43 Urine color determination YELLOW NRG Urine clarity determination CLEAR NR G Urine pH measurement by test strip 5 5-9 Specific gravity of urine by test strip 1.020 1.016-1.022 Urine protein assay by test strip, semi-quantitative 2+ NEGATIVE Urine glucose detection by automated test strip NE GATIVE NEGATIVE Erythrocytes detection in urine sediment by light micr oscopy 2+ NEGATIVE Urine ketones detection by automated test strip 1+ NEGATIVE Urine nitrite detection by test strip NEGATIVE NEGATIVE Urine total bilirubin detection by test strip NEGA TIVE NEGATIVE Urine urobilinogen measurement by automated test strip (mass/volume) NORMAL NORMAL Urine leukocyte esterase detection by dipstick 1+ NEGATIVE Automated urine sediment erythrocyte cou nt by microscopy (number/high power field) NONE NRG Automated urine sediment leukocyte count by microscopy (number/high power field) RARE NRG Bacteria detection in urine sediment by light microsco py TRACE NRG Squamous epithelial cells detection in u rine sediment by light microscopy 2-5 NRG Crystals detection in urine sediment by light microsco py NONE NRG Casts detection in urine sediment by light microscopy NONE NRG Mucus detection in urine sediment by light microscopy SMALL NRG Complete urinalysis with reflex to culture CULTURE PENDING NRG Bacterial urine culture - 12/21/18 23:43 Bacterial urine culture NG NRG Complete blood count (CBC) with automate d white blood cell (WBC) differential - 12/22/18 00:05 Blood leukocytes automated count (number/volume) 15.0 10*3/uL 4.3-11.0 Blood erythrocytes automated count (number/volume) 4.45 10*6/uL 4.35-5.85 Venous blood hemoglobin measurement (mass/volume) 12.4 g/dL 13.3-17.7 Blood hematocrit (volume fraction) 39 % 40-54 Automated erythrocyte mean corpuscular volume 88 [ foz_us] 80-99 Automated erythrocyte mean corpuscular h emoglobin (mass per erythrocyte) 28 pg 25-34 Automated erythrocyte mean corpuscular h emoglobin concentration measurement (mass/volume) 32 g/dL 32-36 Automated erythrocyte distribution width ratio 14. 8 % 10.0- 14.5 Automated blood platelet count (count/volume) 236 10*3/uL 130-400 Automated blood platelet mean volume measurement 10.0 [foz_us] 7.4-10.4 Automated blood neutrophils/100 leukocytes 83 % 42-75 Automated blood lymphocytes/100 leukocytes 9 % 12-44 Blood monocytes/100 leukocytes 6 % 0-12 Automated blood eosinophils/100 leukocytes 2 % 0-10 Automated blood basophils/100 leukocytes 0 % 0-10 Blood neutrophils automated count (number/volume) 12.4 10*3 1.8-7.8 Blood lymphocytes automated count (number/volume) 1.4 10*3 1.0-4.0 Blood monocytes automated count (number/volume) 0. 9 10*3 0.0-1.0 Automated eosinophil count 0.2 10*3/uL 0 .0-0.3 Automated blood basophil count (count/volume) 0.0 10*3/uL 0.0-0.1 PT panel in platelet poor plasma by coag ulation assay - 12/22/18 00:05 Prothrombin time (PT) in platelet poor plasma by coagu lation assay 14.6 s 12.2-14.7 INR in platelet poor plasma or blood by coagulation as say 1.1 0.8-1.4 Activated partial thromboplastin time (a PTT) in platelet poor plasma bycoagulation assay - 12/22/18 00:05 Activated partial thromboplastin time (a PTT) in platelet poor plasma bycoagulation assay 32 s 24-35 Blood lactic acid measurement (moles/vol ume) - 12/22/18 00:05 Blood lactic acid measurement (moles/volume) 2.91 mmol/L 0.50-2.00 Comprehensive metabolic panel - 12/22/18 00:05 Serum or plasma sodium measurement (moles/volume) 135 mmol/L 135-145 Serum or plasma potassium measurement (moles/volume) 4.5 mmol/L 3.6-5.0 Serum or plasma chloride measurement (moles/volume) 103 mmol/L 98-107 Carbon dioxide 19 mmol/L 21-32 Serum or plasma anion gap determination (moles/volume) 13 mmol/L 5-14 Serum or plasma urea nitrogen measurement (mass/volume ) 26 mg/dL 7-18 Serum or plasma creatinine measurement (mass/volume) 1.19 mg/dL 0.60-1.30 Serum or plasma urea nitrogen/creatinine mass ratio 22 NRG Serum or plasma creatinine measurement w ith calculation of estimated glomerular filtration rate > NRG Serum or plasma glucose measurement (mass/volume) 216 mg/dL 70-105 Serum or plasma calcium measurement (mass/volume) 9.4 mg/dL 8.5-10.1 Serum or plasma total bilirubin measurement (mass/volu me) 1.0 mg/dL 0.1-1.0 Serum or plasma alkaline phosphatase oneal surement (enzymatic activity/volume) 200 U/L 40-136 Serum or plasma aspartate aminotransfera se measurement (enzymatic activity/volume) 22 U/L 5-34 Serum or plasma alanine aminotransferase measurement (enzymatic activity/volume) 21 U/L 0-55 Serum or plasma protein measurement (mass/volume) 8.1 g/dL 6.4-8.2 Serum or plasma albumin measurement (mass/volume) 3.9 g/dL 3.2-4.5 CALCIUM CORRECTED 9.5 mg/dL 8.5-10.1 Magnesium - 12/22/18 00:05 Magnesium 1.5 mg/dL 1.8-2.4 Serum or plasma troponin i.cardiac measu rement (mass/volume) - 12/22/18 00:05 Serum or plasma troponin i.cardiac measurement (mass/v olume) 0.060 ng/mL <0.028 Manual absolute plasma cell count - 11/25 03/14 00:05 Blood monocytes/100 leukocytes 4 % NRG Manual blood segmented neutrophils/100 leukocytes 85 % NRG Blood band neutrophils/100 leukocytes 3 % NRG Manual blood lymphocytes/100 leukocytes 6 % NRG Manual eosinophils/100 leukocytes in nose 2 % NRG Blood erythrocyte morphology finding identification NORMAL NRG Serum or plasma lithium measurement (mol es/volume) - 12/22/18 00:05 BNP PT 320.7 pg/mL <100.0 Bacterial blood culture - 12/22/18 00:05 Bacterial blood culture NG NRG Bacterial blood culture - 12/22/18 00:08 Bacterial blood culture NG NRG Serum or plasma lactate measurement (mol es/volume) - 12/22/18 02:10 Serum or plasma lactate measurement (moles/volume) 2.14 mmol/L 0.50-2.00 Capillary blood glucose measurement by g lucometer (mass/volume) - 12/22/18 04:14 Capillary blood glucose measurement by glucometer (mas s/volume) 298 mg/dL 70-110 Capillary blood glucose measurement by g lucometer (mass/volume) - 12/22/18 06:02 Capillary blood glucose measurement by glucometer (mas s/volume) 340 mg/dL 70-110 Complete blood count (CBC) with automate d white blood cell (WBC) differential - 12/22/18 06:25 Blood leukocytes automated count (number/volume) 18.4 10*3/uL 4.3-11.0 Blood erythrocytes automated count (number/volume) 4.18 10*6/uL 4.35-5.85 Venous blood hemoglobin measurement (mass/volume) 11.8 g/dL 13.3-17.7 Blood hematocrit (volume fraction) 37 % 40-54 Automated erythrocyte mean corpuscular volume 89 [ foz_us] 80-99 Automated erythrocyte mean corpuscular h emoglobin (mass per erythrocyte) 28 pg 25-34 Automated erythrocyte mean corpuscular h emoglobin concentration measurement (mass/volume) 32 g/dL 32-36 Automated erythrocyte distribution width ratio 14. 6 % 10.0- 14.5 Automated blood platelet count (count/volume) 199 10*3/uL 130-400 Automated blood platelet mean volume measurement 10.0 [foz_us] 7.4-10.4 Automated blood neutrophils/100 leukocytes 93 % 42-75 Automated blood lymphocytes/100 leukocytes 4 % 12-44 Blood monocytes/100 leukocytes 3 % 0-12 Automated blood eosinophils/100 leukocytes 0 % 0-10 Automated blood basophils/100 leukocytes 0 % 0-10 Blood neutrophils automated count (number/volume) 17.0 10*3 1.8-7.8 Blood lymphocytes automated count (number/volume) 0.7 10*3 1.0-4.0 Blood monocytes automated count (number/volume) 0. 6 10*3 0.0-1.0 Automated eosinophil count 0.0 10*3/uL 0 .0-0.3 Automated blood basophil count (count/volume) 0.0 10*3/uL 0.0-0.1 Comprehensive metabolic panel - 12/22/18 06:25 Serum or plasma sodium measurement (moles/volume) 135 mmol/L 135-145 Serum or plasma potassium measurement (moles/volume) 4.6 mmol/L 3.6-5.0 Serum or plasma chloride measurement (moles/volume) 103 mmol/L 98-107 Carbon dioxide 19 mmol/L 21-32 Serum or plasma anion gap determination (moles/volume) 13 mmol/L 5-14 Serum or plasma urea nitrogen measurement (mass/volume ) 27 mg/dL 7-18 Serum or plasma creatinine measurement (mass/volume) 1.31 mg/dL 0.60-1.30 Serum or plasma urea nitrogen/creatinine mass ratio 21 NRG Serum or plasma creatinine measurement w ith calculation of estimated glomerular filtration rate 55 NRG Serum or plasma glucose measurement (mass/volume) 359 mg/dL 70-105 Serum or plasma calcium measurement (mass/volume) 9.0 mg/dL 8.5-10.1 Serum or plasma total bilirubin measurement (mass/volu me) 1.1 mg/dL 0.1-1.0 Serum or plasma alkaline phosphatase oneal surement (enzymatic activity/volume) 195 U/L 40-136 Serum or plasma aspartate aminotransfera se measurement (enzymatic activity/volume) 24 U/L 5-34 Serum or plasma alanine aminotransferase measurement (enzymatic activity/volume) 23 U/L 0-55 Serum or plasma protein measurement (mass/volume) 7.5 g/dL 6.4-8.2 Serum or plasma albumin measurement (mass/volume) 3.5 g/dL 3.2-4.5 CALCIUM CORRECTED 9.4 mg/dL 8.5-10.1 Magnesium - 12/22/18 06:25 Magnesium 1.9 mg/dL 1.8-2.4 Serum or plasma troponin i.cardiac measu rement (mass/volume) - 12/22/18 06:25 Serum or plasma troponin i.cardiac measurement (mass/v olume) 0.034 ng/mL <0.028 Capillary blood glucose measurement by g lucometer (mass/volume) - 12/22/18 11:37 Capillary blood glucose measurement by glucometer (mas s/volume) 391 mg/dL 70-110 Capillary blood glucose measurement by g lucometer (mass/volume) - 12/22/18 16:07 Capillary blood glucose measurement by glucometer (mas s/volume) 479 mg/dL 70-110 Capillary blood glucose measurement by g lucometer (mass/volume) - 12/22/18 20:37 Capillary blood glucose measurement by glucometer (mas s/volume) 418 mg/dL 70-110 Capillary blood glucose measurement by g lucometer (mass/volume) - 12/23/18 04:42 Capillary blood glucose measurement by glucometer (mas s/volume) 323 mg/dL 70-110 Capillary blood glucose measurement by g lucometer (mass/volume) - 12/23/18 05:38 Capillary blood glucose measurement by glucometer (mas s/volume) 333 mg/dL 70-110 Capillary blood glucose measurement by g lucometer (mass/volume) - 12/23/18 10:38 Capillary blood glucose measurement by glucometer (mas s/volume) 367 mg/dL 70-110 Vancomycin trough - 12/23/18 10:40 Vancomycin trough 25.3 ug/mL 10.0-20.0 Capillary blood glucose measurement by g lucometer (mass/volume) - 12/23/18 16:00 Capillary blood glucose measurement by glucometer (mas s/volume) 193 mg/dL 70-110 Vancomycin trough - 12/23/18 19:55 Vancomycin trough 20.4 ug/mL 10.0-20.0 Capillary blood glucose measurement by g lucometer (mass/volume) - 12/23/18 20:57 Capillary blood glucose measurement by glucometer (mas s/volume) 176 mg/dL 70-110 Complete blood count (CBC) with automate d white blood cell (WBC) differential - 12/24/18 05:25 Blood leukocytes automated count (number/volume) 10.5 10*3/uL 4.3-11.0 Blood erythrocytes automated count (number/volume) 4.38 10*6/uL 4.35-5.85 Venous blood hemoglobin measurement (mass/volume) 12.1 g/dL 13.3-17.7 Blood hematocrit (volume fraction) 39 % 40-54 Automated erythrocyte mean corpuscular volume 90 [ foz_us] 80-99 Automated erythrocyte mean corpuscular h emoglobin (mass per erythrocyte) 28 pg 25-34 Automated erythrocyte mean corpuscular h emoglobin concentration measurement (mass/volume) 31 g/dL 32-36 Automated erythrocyte distribution width ratio 15. 4 % 10.0- 14.5 Automated blood platelet count (count/volume) 227 10*3/uL 130-400 Automated blood platelet mean volume measurement 10.1 [foz_us] 7.4-10.4 Automated blood neutrophils/100 leukocytes 65 % 42-75 Automated blood lymphocytes/100 leukocytes 26 % 12-44 Blood monocytes/100 leukocytes 8 % 0-12 Automated blood eosinophils/100 leukocytes 1 % 0-10 Automated blood basophils/100 leukocytes 0 % 0-10 Blood neutrophils automated count (number/volume) 6.8 10*3 1.8-7.8 Blood lymphocytes automated count (number/volume) 2.7 10*3 1.0-4.0 Blood monocytes automated count (number/volume) 0. 8 10*3 0.0-1.0 Automated eosinophil count 0.1 10*3/uL 0 .0-0.3 Automated blood basophil count (count/volume) 0.0 10*3/uL 0.0-0.1 Capillary blood glucose measurement by g lucometer (mass/volume) - 12/24/18 05:59 Capillary blood glucose measurement by glucometer (mas s/volume) 156 mg/dL 70-110 Capillary blood glucose measurement by g lucometer (mass/volume) - 12/24/18 10:44 Capillary blood glucose measurement by glucometer (mas s/volume) 152 mg/dL 70-110 Complete blood count (CBC) with automate d white blood cell (WBC) differential - 06/04/19 10:27 Blood leukocytes automated count (number/volume) 7.7 10*3/uL 4.3-11.0 Blood erythrocytes automated count (number/volume) 4.58 10*6/uL 4.35-5.85 Venous blood hemoglobin measurement (mass/volume) 12.4 g/dL 13.3-17.7 Blood hematocrit (volume fraction) 41 % 40-54 Automated erythrocyte mean corpuscular volume 88 [ foz_us] 80-99 Automated erythrocyte mean corpuscular h emoglobin (mass per erythrocyte) 27 pg 25-34 Automated erythrocyte mean corpuscular h emoglobin concentration measurement (mass/volume) 31 g/dL 32-36 Automated erythrocyte distribution width ratio 14. 7 % 10.0- 14.5 Automated blood platelet count (count/volume) 248 10*3/uL 130-400 Automated blood platelet mean volume measurement 10.3 [foz_us] 7.4-10.4 Automated blood neutrophils/100 leukocytes 67 % 42-75 Automated blood lymphocytes/100 leukocytes 20 % 12-44 Blood monocytes/100 leukocytes 9 % 0-12 Automated blood eosinophils/100 leukocytes 3 % 0-10 Automated blood basophils/100 leukocytes 0 % 0-10 Blood neutrophils automated count (number/volume) 5.2 10*3 1.8-7.8 Blood lymphocytes automated count (number/volume) 1.6 10*3 1.0-4.0 Blood monocytes automated count (number/volume) 0. 7 10*3 0.0-1.0 Automated eosinophil count 0.2 10*3/uL 0 .0-0.3 Automated blood basophil count (count/volume) 0.0 10*3/uL 0.0-0.1 Blood blood smear finding identification by light micr oscopy [facility] Comprehensive metabolic panel - 06/04/19 10:27 Serum or plasma sodium measurement (moles/volume) 136 mmol/L 135-145 Serum or plasma potassium measurement (moles/volume) 4.5 mmol/L 3.6-5.0 Serum or plasma chloride measurement (moles/volume) 98 mmol/L 98-107 Carbon dioxide 27 mmol/L 21-32 Serum or plasma anion gap determination (moles/volume) 11 mmol/L 5-14 Serum or plasma urea nitrogen measurement (mass/volume ) 32 mg/dL 7-18 Serum or plasma creatinine measurement (mass/volume) 1.42 mg/dL 0.60-1.30 Serum or plasma urea nitrogen/creatinine mass ratio 23 NRG Serum or plasma creatinine measurement w ith calculation of estimated glomerular filtration rate 50 NRG Serum or plasma glucose measurement (mass/volume) 166 mg/dL 70-105 Serum or plasma calcium measurement (mass/volume) 9.2 mg/dL 8.5-10.1 Serum or plasma total bilirubin measurement (mass/volu me) 0.7 mg/dL 0.1-1.0 Serum or plasma alkaline phosphatase oneal surement (enzymatic activity/volume) 190 U/L 40-136 Serum or plasma aspartate aminotransfera se measurement (enzymatic activity/volume) 29 U/L 5-34 Serum or plasma alanine aminotransferase measurement (enzymatic activity/volume) 19 U/L 0-55 Serum or plasma protein measurement (mass/volume) 7.6 g/dL 6.4-8.2 Serum or plasma albumin measurement (mass/volume) 3.6 g/dL 3.2-4.5 CALCIUM CORRECTED 9.5 mg/dL 8.5-10.1 Complete urinalysis with reflex to cultu re - 06/04/19 12:36 Urine color determination YELLOW NRG Urine clarity determination CLEAR NR G Urine pH measurement by test strip 5.5 5-9 Specific gravity of urine by test strip 1.025 1.016-1.022 Urine protein assay by test strip, semi-quantitative TRACE NEGATIVE Urine glucose detection by automated test strip NE GATIVE NEGATIVE Erythrocytes detection in urine sediment by light micr oscopy 1+ NEGATIVE Urine ketones detection by automated test strip NE GATIVE NEGATIVE Urine nitrite detection by test strip NEGATIVE NEGATIVE Urine total bilirubin detection by test strip NEGA TIVE NEGATIVE Urine urobilinogen measurement by automated test strip (mass/volume) 0.2 mg/dL < = 1.0 Urine leukocyte esterase detection by dipstick NEG ATIVE NEGATIVE Automated urine sediment erythrocyte cou nt by microscopy (number/high power field) [HPF] NRG Automated urine sediment leukocyte count by microscopy (number/high power field) NONE NRG Bacteria detection in urine sediment by light microsco py NEGATIVE NRG Squamous epithelial cells detection in u rine sediment by light microscopy RARE NRG Crystals detection in urine sediment by light microsco py NONE NRG Casts detection in urine sediment by light microscopy NONE NRG Mucus detection in urine sediment by light microscopy NEGATIVE NRG Complete urinalysis with reflex to culture NO NRG Complete blood count (CBC) with automate d white blood cell (WBC) differential - 08/08/19 12:50 Blood leukocytes automated count (number/volume) 7.0 10*3/uL 4.3-11.0 Blood erythrocytes automated count (number/volume) 4.58 10*6/uL 4.35-5.85 Venous blood hemoglobin measurement (mass/volume) 11.6 g/dL 13.3-17.7 Blood hematocrit (volume fraction) 40 % 40-54 Automated erythrocyte mean corpuscular volume 87 [ foz_us] 80-99 Automated erythrocyte mean corpuscular h emoglobin (mass per erythrocyte) 25 pg 25-34 Automated erythrocyte mean corpuscular h emoglobin concentration measurement (mass/volume) 29 g/dL 32-36 Automated erythrocyte distribution width ratio 15. 7 % 10.0- 14.5 Automated blood platelet count (count/volume) 308 10*3/uL 130-400 Automated blood platelet mean volume measurement 10.3 [foz_us] 7.4-10.4 Automated blood neutrophils/100 leukocytes 72 % 42-75 Automated blood lymphocytes/100 leukocytes 14 % 12-44 Blood monocytes/100 leukocytes 12 % 0-12 Automated blood eosinophils/100 leukocytes 2 % 0-10 Automated blood basophils/100 leukocytes 0 % 0-10 Blood neutrophils automated count (number/volume) 5.0 10*3 1.8-7.8 Blood lymphocytes automated count (number/volume) 1.0 10*3 1.0-4.0 Blood monocytes automated count (number/volume) 0. 9 10*3 0.0-1.0 Automated eosinophil count 0.1 10*3/uL 0 .0-0.3 Automated blood basophil count (count/volume) 0.0 10*3/uL 0.0-0.1 Comprehensive metabolic panel - 08/08/19 12:50 Serum or plasma sodium measurement (moles/volume) 134 mmol/L 135-145 Serum or plasma potassium measurement (moles/volume) 4.4 mmol/L 3.6-5.0 Serum or plasma chloride measurement (moles/volume) 98 mmol/L 98-107 Carbon dioxide 28 mmol/L 21-32 Serum or plasma anion gap determination (moles/volume) 8 mmol/L 5-14 Serum or plasma urea nitrogen measurement (mass/volume ) 47 mg/dL 7-18 Serum or plasma creatinine measurement (mass/volume) 2.44 mg/dL 0.60-1.30 Serum or plasma urea nitrogen/creatinine mass ratio 19 NRG Serum or plasma creatinine measurement w ith calculation of estimated glomerular filtration rate 27 NRG Serum or plasma glucose measurement (mass/volume) 177 mg/dL 70-105 Serum or plasma calcium measurement (mass/volume) 8.6 mg/dL 8.5-10.1 Serum or plasma total bilirubin measurement (mass/volu me) 1.0 mg/dL 0.1-1.0 Serum or plasma alkaline phosphatase oneal surement (enzymatic activity/volume) 553 U/L 40-136 Serum or plasma aspartate aminotransfera se measurement (enzymatic activity/volume) 26 U/L 5-34 Serum or plasma alanine aminotransferase measurement (enzymatic activity/volume) 20 U/L 0-55 Serum or plasma protein measurement (mass/volume) 7.5 g/dL 6.4-8.2 Serum or plasma albumin measurement (mass/volume) 3.1 g/dL 3.2-4.5 CALCIUM CORRECTED 9.3 mg/dL 8.5-10.1 Magnesium - 08/08/19 12:50 Magnesium 1.9 mg/dL 1.6-2.4 Serum or plasma lithium measurement (mol es/volume) - 08/08/19 12:50 BNP PT 435.3 pg/mL <100.0 THYROID STIMULATING HORMONE - 08/08/19 1 2:50 THYROID STIMULATING HORMONE 15.75 u[iU]/mL 0.35-4.94 Serum or plasma thyroxine (T4) free mariza urement (mass/volume) - 08/08/19 12:50 Serum or plasma thyroxine (T4) free measurement (mass/ volume) 0.86 ng/dL 0.70-1.48 PT panel in platelet poor plasma by coag ulation assay - 08/08/19 12:50 Prothrombin time (PT) in platelet poor plasma by coagu lation assay 16.1 s 12.2-14.7 INR in platelet poor plasma or blood by coagulation as say 1.2 0.8-1.4 Activated partial thromboplastin time (a PTT) in platelet poor plasma bycoagulation assay - 08/08/19 12:50 Activated partial thromboplastin time (a PTT) in platelet poor plasma bycoagulation assay 38 s 24-35 Complete urinalysis with reflex to cultu re - 08/08/19 13:10 Urine color determination YELLOW NRG Urine clarity determination CLEAR NR G Urine pH measurement by test strip 6.0 5-9 Specific gravity of urine by test strip 1.015 1.016-1.022 Urine protein assay by test strip, semi-quantitative 1+ NEGATIVE Urine glucose detection by automated test strip NE GATIVE NEGATIVE Erythrocytes detection in urine sediment by light micr oscopy NEGATIVE NEGATIVE Urine ketones detection by automated test strip NE GATIVE NEGATIVE Urine nitrite detection by test strip NEGATIVE NEGATIVE Urine total bilirubin detection by test strip NEGA TIVE NEGATIVE Urine urobilinogen measurement by automated test strip (mass/volume) 1.0 mg/dL < = 1.0 Urine leukocyte esterase detection by dipstick NEG ATIVE NEGATIVE Automated urine sediment erythrocyte cou nt by microscopy (number/high power field) NONE NRG Automated urine sediment leukocyte count by microscopy (number/high power field) RARE NRG Bacteria detection in urine sediment by light microsco py NEGATIVE NRG Squamous epithelial cells detection in u rine sediment by light microscopy NONE NRG Crystals detection in urine sediment by light microsco py NONE NRG Casts detection in urine sediment by light microscopy NONE NRG Mucus detection in urine sediment by light microscopy NEGATIVE NRG Complete urinalysis with reflex to culture NO NRG Capillary blood glucose measurement by g lucometer (mass/volume) - 08/08/19 20:33 Capillary blood glucose measurement by glucometer (mas s/volume) 141 mg/dL 70-110 Capillary blood glucose measurement by g lucometer (mass/volume) - 08/09/19 05:33 Capillary blood glucose measurement by glucometer (mas s/volume) 152 mg/dL 70-110 Automated blood complete blood count (he mogram) panel - 08/09/19 08:21 Blood leukocytes automated count (number/volume) 7.8 10*3/uL 4.3-11.0 Blood erythrocytes automated count (number/volume) 4.67 10*6/uL 4.35-5.85 Venous blood hemoglobin measurement (mass/volume) 11.9 g/dL 13.3-17.7 Blood hematocrit (volume fraction) 41 % 40-54 Automated erythrocyte mean corpuscular volume 88 [ foz_us] 80-99 Automated erythrocyte mean corpuscular h emoglobin (mass per erythrocyte) 25 pg 25-34 Automated erythrocyte mean corpuscular h emoglobin concentration measurement (mass/volume) 29 g/dL 32-36 Automated erythrocyte distribution width ratio 16. 1 % 10.0- 14.5 Automated blood platelet count (count/volume) 309 10*3/uL 130-400 Automated blood platelet mean volume measurement 10.1 [foz_us] 7.4-10.4 Whole blood basic metabolic panel - 07/27 10/13 08:21 Serum or plasma sodium measurement (moles/volume) 136 mmol/L 135-145 Serum or plasma potassium measurement (moles/volume) 4.7 mmol/L 3.6-5.0 Serum or plasma chloride measurement (moles/volume) 100 mmol/L 98-107 Carbon dioxide 25 mmol/L 21-32 Serum or plasma anion gap determination (moles/volume) 11 mmol/L 5-14 Serum or plasma urea nitrogen measurement (mass/volume ) 46 mg/dL 7-18 Serum or plasma creatinine measurement (mass/volume) 2.41 mg/dL 0.60-1.30 Serum or plasma urea nitrogen/creatinine mass ratio 19 NRG Serum or plasma creatinine measurement w ith calculation of estimated glomerular filtration rate 27 NRG Serum or plasma glucose measurement (mass/volume) 146 mg/dL 70-105 Serum or plasma calcium measurement (mass/volume) 9.0 mg/dL 8.5-10.1 Magnesium - 08/09/19 08:21 Magnesium 1.9 mg/dL 1.6-2.4 Capillary blood glucose measurement by g lucometer (mass/volume) - 08/09/19 10:43 Capillary blood glucose measurement by glucometer (mas s/volume) 166 mg/dL 70-110 Capillary blood glucose measurement by g lucometer (mass/volume) - 08/09/19 15:25 Capillary blood glucose measurement by glucometer (mas s/volume) 149 mg/dL 70-110 Capillary blood glucose measurement by g lucometer (mass/volume) - 08/09/19 20:05 Capillary blood glucose measurement by glucometer (mas s/volume) 146 mg/dL 70-110 Capillary blood glucose measurement by g lucometer (mass/volume) - 08/10/19 05:20 Capillary blood glucose measurement by glucometer (mas s/volume) 146 mg/dL 70-110 Automated blood complete blood count (he mogram) panel - 08/10/19 05:32 Blood leukocytes automated count (number/volume) 7.1 10*3/uL 4.3-11.0 Blood erythrocytes automated count (number/volume) 4.68 10*6/uL 4.35-5.85 Venous blood hemoglobin measurement (mass/volume) 11.8 g/dL 13.3-17.7 Blood hematocrit (volume fraction) 41 % 40-54 Automated erythrocyte mean corpuscular volume 88 [ foz_us] 80-99 Automated erythrocyte mean corpuscular h emoglobin (mass per erythrocyte) 25 pg 25-34 Automated erythrocyte mean corpuscular h emoglobin concentration measurement (mass/volume) 29 g/dL 32-36 Automated erythrocyte distribution width ratio 16. 0 % 10.0- 14.5 Automated blood platelet count (count/volume) 320 10*3/uL 130-400 Automated blood platelet mean volume measurement 9.8 [foz_us] 7.4-10.4 Whole blood basic metabolic panel - 07/27 11/12 05:32 Serum or plasma sodium measurement (moles/volume) 138 mmol/L 135-145 Serum or plasma potassium measurement (moles/volume) 4.5 mmol/L 3.6-5.0 Serum or plasma chloride measurement (moles/volume) 101 mmol/L 98-107 Carbon dioxide 25 mmol/L 21-32 Serum or plasma anion gap determination (moles/volume) 12 mmol/L 5-14 Serum or plasma urea nitrogen measurement (mass/volume ) 45 mg/dL 7-18 Serum or plasma creatinine measurement (mass/volume) 2.31 mg/dL 0.60-1.30 Serum or plasma urea nitrogen/creatinine mass ratio 19 NRG Serum or plasma creatinine measurement w ith calculation of estimated glomerular filtration rate 28 NRG Serum or plasma glucose measurement (mass/volume) 132 mg/dL 70-105 Serum or plasma calcium measurement (mass/volume) 8.9 mg/dL 8.5-10.1 Capillary blood glucose measurement by g lucometer (mass/volume) - 08/10/19 10:26 Capillary blood glucose measurement by glucometer (mas s/volume) 125 mg/dL 70-110 Capillary blood glucose measurement by g lucometer (mass/volume) - 08/10/19 14:47 Capillary blood glucose measurement by glucometer (mas s/volume) 121 mg/dL 70-110 Capillary blood glucose measurement by g lucometer (mass/volume) - 08/10/19 16:50 Capillary blood glucose measurement by glucometer (mas s/volume) 123 mg/dL 70-110 Capillary blood glucose measurement by g lucometer (mass/volume) - 08/10/19 19:19 Capillary blood glucose measurement by glucometer (mas s/volume) 131 mg/dL 70-110 Whole blood basic metabolic panel - 07/27 12/13 05:54 Serum or plasma sodium measurement (moles/volume) 140 mmol/L 135-145 Serum or plasma potassium measurement (moles/volume) 4.5 mmol/L 3.6-5.0 Serum or plasma chloride measurement (moles/volume) 108 mmol/L 98-107 Carbon dioxide 20 mmol/L 21-32 Serum or plasma anion gap determination (moles/volume) 12 mmol/L 5-14 Serum or plasma urea nitrogen measurement (mass/volume ) 18 mg/dL 7-18 Serum or plasma creatinine measurement (mass/volume) 0.91 mg/dL 0.60-1.30 Serum or plasma urea nitrogen/creatinine mass ratio 20 NRG Serum or plasma creatinine measurement w ith calculation of estimated glomerular filtration rate > NRG Serum or plasma glucose measurement (mass/volume) 94 mg/dL 70-105 Serum or plasma calcium measurement (mass/volume) 9.8 mg/dL 8.5-10.1 Capillary blood glucose measurement by g lucometer (mass/volume) - 08/11/19 06:11 Capillary blood glucose measurement by glucometer (mas s/volume) 88 mg/dL 70-110 Automated blood complete blood count (he mogram) panel - 08/11/19 06:41 Blood leukocytes automated count (number/volume) 6.0 10*3/uL 4.3-11.0 Blood erythrocytes automated count (number/volume) 4.59 10*6/uL 4.35-5.85 Venous blood hemoglobin measurement (mass/volume) 11.5 g/dL 13.3-17.7 Blood hematocrit (volume fraction) 41 % 40-54 Automated erythrocyte mean corpuscular volume 89 [ foz_us] 80-99 Automated erythrocyte mean corpuscular h emoglobin (mass per erythrocyte) 25 pg 25-34 Automated erythrocyte mean corpuscular h emoglobin concentration measurement (mass/volume) 28 g/dL 32-36 Automated erythrocyte distribution width ratio 15. 9 % 10.0- 14.5 Automated blood platelet count (count/volume) 368 10*3/uL 130-400 Automated blood platelet mean volume measurement 9.8 [foz_us] 7.4-10.4 Capillary blood glucose measurement by g lucometer (mass/volume) - 08/11/19 10:01 Capillary blood glucose measurement by glucometer (mas s/volume) 166 mg/dL 70-110 Capillary blood glucose measurement by g lucometer (mass/volume) - 08/11/19 14:56 Capillary blood glucose measurement by glucometer (mas s/volume) 144 mg/dL 70-110 Capillary blood glucose measurement by g lucometer (mass/volume) - 08/11/19 19:41 Capillary blood glucose measurement by glucometer (mas s/volume) 161 mg/dL 70-110 Automated blood complete blood count (he mogram) panel - 08/12/19 04:58 Blood leukocytes automated count (number/volume) 6.4 10*3/uL 4.3-11.0 Blood erythrocytes automated count (number/volume) 4.53 10*6/uL 4.35-5.85 Venous blood hemoglobin measurement (mass/volume) 11.4 g/dL 13.3-17.7 Blood hematocrit (volume fraction) 40 % 40-54 Automated erythrocyte mean corpuscular volume 89 [ foz_us] 80-99 Automated erythrocyte mean corpuscular h emoglobin (mass per erythrocyte) 25 pg 25-34 Automated erythrocyte mean corpuscular h emoglobin concentration measurement (mass/volume) 28 g/dL 32-36 Automated erythrocyte distribution width ratio 15. 8 % 10.0- 14.5 Automated blood platelet count (count/volume) 340 10*3/uL 130-400 Automated blood platelet mean volume measurement 10.0 [foz_us] 7.4-10.4 Whole blood basic metabolic panel - 07/27 01/12 04:58 Serum or plasma sodium measurement (moles/volume) 139 mmol/L 135-145 Serum or plasma potassium measurement (moles/volume) 4.1 mmol/L 3.6-5.0 Serum or plasma chloride measurement (moles/volume) 101 mmol/L 98-107 Carbon dioxide 25 mmol/L 21-32 Serum or plasma anion gap determination (moles/volume) 13 mmol/L 5-14 Serum or plasma urea nitrogen measurement (mass/volume ) 40 mg/dL 7-18 Serum or plasma creatinine measurement (mass/volume) 2.30 mg/dL 0.60-1.30 Serum or plasma urea nitrogen/creatinine mass ratio 17 NRG Serum or plasma creatinine measurement w ith calculation of estimated glomerular filtration rate 29 NRG Serum or plasma glucose measurement (mass/volume) 106 mg/dL 70-105 Serum or plasma calcium measurement (mass/volume) 8.7 mg/dL 8.5-10.1 Capillary blood glucose measurement by g lucometer (mass/volume) - 08/12/19 09:28 Capillary blood glucose measurement by glucometer (mas s/volume) 199 mg/dL 70-110 Complete blood count (CBC) with automate d white blood cell (WBC) differential - 08/26/19 20:24 Blood leukocytes automated count (number/volume) 7.2 10*3/uL 4.3-11.0 Blood erythrocytes automated count (number/volume) 4.82 10*6/uL 4.35-5.85 Venous blood hemoglobin measurement (mass/volume) 12.2 g/dL 13.3-17.7 Blood hematocrit (volume fraction) 41 % 40-54 Automated erythrocyte mean corpuscular volume 86 [ foz_us] 80-99 Automated erythrocyte mean corpuscular h emoglobin (mass per erythrocyte) 25 pg 25-34 Automated erythrocyte mean corpuscular h emoglobin concentration measurement (mass/volume) 30 g/dL 32-36 Automated erythrocyte distribution width ratio 16. 1 % 10.0- 14.5 Automated blood platelet count (count/volume) 313 10*3/uL 130-400 Automated blood platelet mean volume measurement 10.3 [foz_us] 7.4-10.4 Automated blood neutrophils/100 leukocytes 71 % 42-75 Automated blood lymphocytes/100 leukocytes 14 % 12-44 Blood monocytes/100 leukocytes 11 % 0-12 Automated blood eosinophils/100 leukocytes 3 % 0-10 Automated blood basophils/100 leukocytes 0 % 0-10 Blood neutrophils automated count (number/volume) 5.2 10*3 1.8-7.8 Blood lymphocytes automated count (number/volume) 1.0 10*3 1.0-4.0 Blood monocytes automated count (number/volume) 0. 8 10*3 0.0-1.0 Automated eosinophil count 0.2 10*3/uL 0 .0-0.3 Automated blood basophil count (count/volume) 0.0 10*3/uL 0.0-0.1 Blood lactic acid measurement (moles/vol ume) - 08/26/19 20:24 Blood lactic acid measurement (moles/volume) 2.38 mmol/L 0.50-2.00 Comprehensive metabolic panel - 08/26/19 20:24 Serum or plasma sodium measurement (moles/volume) 137 mmol/L 135-145 Serum or plasma potassium measurement (moles/volume) 4.1 mmol/L 3.6-5.0 Serum or plasma chloride measurement (moles/volume) 98 mmol/L 98-107 Carbon dioxide 25 mmol/L 21-32 Serum or plasma anion gap determination (moles/volume) 14 mmol/L 5-14 Serum or plasma urea nitrogen measurement (mass/volume ) 43 mg/dL 7-18 Serum or plasma creatinine measurement (mass/volume) 2.11 mg/dL 0.60-1.30 Serum or plasma urea nitrogen/creatinine mass ratio 20 NRG Serum or plasma creatinine measurement w ith calculation of estimated glomerular filtration rate 32 NRG Serum or plasma glucose measurement (mass/volume) 270 mg/dL 70-105 Serum or plasma calcium measurement (mass/volume) 9.2 mg/dL 8.5-10.1 Serum or plasma total bilirubin measurement (mass/volu me) 0.8 mg/dL 0.1-1.0 Serum or plasma alkaline phosphatase oneal surement (enzymatic activity/volume) 442 U/L 40-136 Serum or plasma aspartate aminotransfera se measurement (enzymatic activity/volume) 32 U/L 5-34 Serum or plasma alanine aminotransferase measurement (enzymatic activity/volume) 33 U/L 0-55 Serum or plasma protein measurement (mass/volume) 8.4 g/dL 6.4-8.2 Serum or plasma albumin measurement (mass/volume) 3.4 g/dL 3.2-4.5 CALCIUM CORRECTED 9.7 mg/dL 8.5-10.1 PT panel in platelet poor plasma by coag ulation assay - 08/26/19 20:24 Prothrombin time (PT) in platelet poor plasma by coagu lation assay 15.5 s 12.2-14.7 INR in platelet poor plasma or blood by coagulation as say 1.2 0.8-1.4 Activated partial thromboplastin time (a PTT) in platelet poor plasma bycoagulation assay - 08/26/19 20:24 Activated partial thromboplastin time (a PTT) in platelet poor plasma bycoagulation assay 41 s 24-35 Serum or plasma lithium measurement (mol es/volume) - 08/26/19 20:24 BNP PT 357.5 pg/mL <100.0 Bacterial blood culture - 08/26/19 20:24 Bacterial blood culture NG NRG Complete urinalysis with reflex to cultu re - 08/26/19 20:45 Urine color determination YELLOW NRG Urine clarity determination CLEAR NR G Urine pH measurement by test strip 5.5 5-9 Specific gravity of urine by test strip 1.015 1.016-1.022 Urine protein assay by test strip, semi-quantitative TRACE NEGATIVE Urine glucose detection by automated test strip NE GATIVE NEGATIVE Erythrocytes detection in urine sediment by light micr oscopy NEGATIVE NEGATIVE Urine ketones detection by automated test strip NE GATIVE NEGATIVE Urine nitrite detection by test strip NEGATIVE NEGATIVE Urine total bilirubin detection by test strip NEGA TIVE NEGATIVE Urine urobilinogen measurement by automated test strip (mass/volume) 0.2 mg/dL < = 1.0 Urine leukocyte esterase detection by dipstick NEG ATIVE NEGATIVE Automated urine sediment erythrocyte cou nt by microscopy (number/high power field) NONE NRG Automated urine sediment leukocyte count by microscopy (number/high power field) RARE NRG Bacteria detection in urine sediment by light microsco py TRACE NRG Squamous epithelial cells detection in u rine sediment by light microscopy RARE NRG Crystals detection in urine sediment by light microsco py PRESENT NRG Casts detection in urine sediment by light microscopy NONE NRG Mucus detection in urine sediment by light microscopy NEGATIVE NRG Complete urinalysis with reflex to culture CULTURE PENDING NRG Amorphous sediment detection in urine sediment by ligh t microscopy RARE LOY URATES NRG Bacterial urine culture - 08/26/19 20:45 Bacterial urine culture NG NRG Bacterial blood culture - 08/26/19 21:20 Bacterial blood culture NG NRG Encounters ACCT No. Visit Date/Time Discharge Status Pt. Type Provider Facility Loc./Unit Complaint [id number] 05/08/2019 11:20:00 05/08/2019 23:59: 59 CLS Outpatient [facility]IL[facility]G [facility] [id number] 08/26/2019 20:11:00 23:34:00 DIS Emergency HARI LAWS, BERKLEY Rondon [facility] ER INFECTION IN LEGS [id number] 08/08/2019 14:06:00 14:22:00 DIS Outpatient DEBI FLORES MD [facility] 4TH FLUID OVERLOAD,ARF,GREG LITY,CHF [id number] 06/04/2019 10:15:00 13:13:00 DIS Emergency MECCA DO, BREANN K [facility] ER HIVES IN THROAT/SOA [id number] 04/11/2019 11:39:00 23:59:59 CLS Outpatient REGINA LAWS FACC, LANCE BANDA CC DS [facility] LAB RORY [id number] 03/29/2019 11:55:00 23:59:59 CLS Outpatient REGINA LAWS FACC, LANCE BANDA CC DS [facility] CARD SOB,HTN,RORY [id number] 12/22/2018 01:35:00 14:50:00 DIS Inpatient DEBI FLORES MD [facility] 4TH BILAT. LEG CELLULITIS;C OPD W/HYPOXIA;ELEVATED [id number] 12/05/2018 13:11:00 23:59:59 CLS Outpatient AMARIS ENAMORADO MD [facility] WOUNDCARE [id number] 11/28/2018 11:44:00 23:59:59 CLS Outpatient LANCE TAPIA MD, FACC, FACP CC DS [facility] LAB I50.23 [id number] 10/27/2018 01:10:00 019 11:07:00 DIS Inpatient CHITRA LAWS, NIKOLE Coyle [facility] 4TH ABDOMINAL WALL CELLULITIS/PANNICULITIS;SEPSIS; [id number] 09/22/2018 11:59:00 019 15:41:00 DIS Emergency SALONI LAWS, TIMOTHY Angel [facility] ER BP 185/95, CP X 3 DAYS [id number] 08/28/2018 23:56:00 019 01:30:00 DIS Emergency BREANN WING DO [facility] ER HIGH BLOOD PRESSURE 195 /109 [id number] 03/05/2018 05:24:00 018 07:05:00 DIS Emergency BERKLEY NORIEGA MD [facility] ER SOA [id number] 10/20/2017 13:57:00 018 23:59:59 CLS Outpatient REGINA LAWS FACC, LANCE VALADEZP CC DS [facility] CARD R06.02 SOB [id number] 08/25/2017 11:00:00 018 23:59:59 CLS Outpatient REGINA LAWS FACC, ALI ALLYSONP CC DS [facility] RAD I42.0 DILAT ED CARDIOMYOPATHY [id number] 07/10/2017 12:17:00 018 16:16:00 DIS Emergency DAVID SALCEDO [employer]ACH[employer] FEEDER [facility] ER CP [id number] 02/12/2017 22:49:00 017 14:38:00 DIS Inpatient LONG PLASCENCIA MD [facility] 4TH ACS R/O, CHF EXACERBATI ON
== END 2019-08-26 23:34 | disposition short-term general hospital (02) ==
LOC: EDUNIT# 20:10 → ER 20:11
DX: A41.9 Sepsis, unspecified organism (principal); R65.20 Severe sepsis without septic shock; L03.115 Cellulitis of right lower limb; L03.116 Cellulitis of left lower limb; I13.0 Hypertensive heart and chronic kidney disease with heart failure and stage 1 through stage 4 chronic kidney disease, or unspecified chronic kidney disease; I50.9 Heart failure, unspecified; E11.22 Type 2 diabetes mellitus with diabetic chronic kidney disease; N18.3 Chronic kidney disease, stage 3 (moderate); J44.9 Chronic obstructive pulmonary disease, unspecified; G47.33 Obstructive sleep apnea (adult) (pediatric); E66.2 Morbid (severe) obesity with alveolar hypoventilation; I25.2 Old myocardial infarction; E78.00 Pure hypercholesterolemia, unspecified; I25.10 Atherosclerotic heart disease of native coronary artery without angina pectoris; E11.40 Type 2 diabetes mellitus with diabetic neuropathy, unspecified; K21.9 Gastro-esophageal reflux disease without esophagitis; E03.9 Hypothyroidism, unspecified; Z82.49 Family history of ischemic heart disease and other diseases of the circulatory system; Z86.73 Personal history of transient ischemic attack (TIA), and cerebral infarction without residual deficits; Z88.5 Allergy status to narcotic agent; Z91.041 Radiographic dye allergy status; Z79.82 Long term (current) use of aspirin; Z79.4 Long term (current) use of insulin; Z87.891 Personal history of nicotine dependence; Z99.89 Dependence on other enabling machines and devices; Z68.43 Body mass index [BMI] 50.0-59.9, adult
CPT/HCPCS: 36415; 51702; 71045; 80053; 81000; 83605; 83880; 85025; 85610; 85730; 87040; 87088

== ENCOUNTER 2020-06-05 00:43 | Inpatient (IN) | payer MEDICARE, OTHER ==
[~2020-06-05] VITALS: Ht 190.5 cm; Wt 221.0 kg
[2020-06-05] VITALS (7 sets, daily range): BP systolic 112–130; BP diastolic 53–94
[~2020-06-05 00:43] MED LIST changes: +ASPI-1238 PO; -ASPI-983 PO
[2020-06-05] MEDS ORDERED: CEFEPIME INJECTION 2,000 MG in WATER (STERILE) FOR INJECTION 20 ML IV ONE (01:15)
[2020-06-05] MEDS ORDERED: ACETAMINOPHEN 325 MG TABLET PO ONE (01:30)
[2020-06-05 01:51] LABS: BILIRUBIN,URINE NEGATIVE (NEGATIVE); CLARITY,URINE CLOUDY; COLOR,URINE YELLOW; GLUCOSE, URINE (UA) NEGATIVE (NEGATIVE); KETONES,URINE NEGATIVE (NEGATIVE); LEUKOCYTE ESTERASE ,URINE NEGATIVE (NEGATIVE); NITRITE,URINE NEGATIVE (NEGATIVE); PH,URINE 5.5 (5-9); PROTEIN,URINE 1+ (NEGATIVE)
[2020-06-05 02:02] LABS: BASOPHILS % (AUTO) 0 % (0-10); EOSINOPHILS # (AUTO) 0.1 10^3/uL (0.0-0.3); EOSINOPHILS % (AUTO) 1 % (0-10); HEMATOCRIT 37 % (40-54); HEMOGLOBIN 10.2 g/dL (13.3-17.7); LYMPHOCYTES # (AUTO) 0.8 10^3/uL (1.0-4.0); LYMPHOCYTES % (AUTO) 6 % (12-44); MEAN CORPUSCULAR HEMOGLOBIN 24 pg (25-34); MEAN CORPUSCULAR HGB CONC 28 g/dL (32-36); MEAN CORPUSCULAR VOLUME 89 fL (80-99); MEAN PLATELET VOLUME 10.5 fL (9.0-12.2); MONOCYTES % (AUTO) 7 % (0-12); NEUTROPHILS # (AUTO) 12.5 10^3/uL (1.8-7.8); NEUTROPHILS % (AUTO) 86 % (42-75); PLATELET COUNT 289 10^3/uL (130-400); WHITE BLOOD COUNT 14.5 10^3/uL (4.3-11.0)
[2020-06-05 02:08] LABS: AMORPHOUS SEDIMENT,UR FEW AMOR URATES /LPF; BACTERIA,URINE FEW /HPF; RBC,URINE 0-2 /HPF; SQUAMOUS EPITHELIAL CELL,UR RARE /HPF; WBC,URINE 0-2 /HPF
[2020-06-05 02:20] LABS: ALBUMIN 3.1 GM/DL (3.2-4.5); POTASSIUM 4.4 MMOL/L (3.6-5.0)
[2020-06-05 02:21] LABS: CALCIUM 8.4 MG/DL (8.5-10.1)
[2020-06-05 02:22] LABS: TOTAL PROTEIN 7.9 GM/DL (6.4-8.2)
[2020-06-05] MEDS ORDERED: morphine INJ 10 MG/ML 1ML (SYR OR VIAL) IVP STA (02:22)
[2020-06-05 02:23] LABS: INR 1.2 (0.8-1.4); PROTHROMBIN TIME PATIENT 15.8 SEC (12.2-14.7)
[2020-06-05 02:24] LABS: BILIRUBIN,TOTAL 0.9 MG/DL (0.1-1.0)
[2020-06-05 02:26] LABS: CREATININE SERUM 2.11 MG/DL (0.60-1.30)
[2020-06-05 03:46] LABS: BAND NEUTROPHILS 6 %; LYMPHOCYTES % (MANUAL) 4 %; MONOCYTES % (MANUAL) 7 %; NEUTROPHILS % (MANUAL) 83 %
[2020-06-05 03:47] LABS: MICROCYTOSIS MODERATE
--- NOTE | 2020-06-05 03:49 | ED General ---
General Chief Complaint: Respiratory Problems Stated Complaint: WEAKNESS,PUI Nursing Triage Note: ARRIVES VIA EMS ROOM 09, PT C/O WEAKNESS, SOB, AND FEVER FOR ONE WEEK. Nursing Sepsis Screen: Possible Sepsis Risk Source of Information: Patient, EMS Exam Limitations: No Limitations History of Present Illness Date Seen by Provider: Jun 05, 2020 Time Seen by Provider: 00:45 Initial Comments This 65 year old gentleman presents to the ER via EMS with fever, dyspnea, and weekness for about 1 week. He is now rather debilitated and has not been able to walk independently today. His reports he has not walked more than the short distance from his recliner to the bathroom in over a week. He has severe edema, erythema, weeping, and odor of the legs bilaterally. He has not received any wound care other than his 's care for his legs. He is diabetic and also an oxygen dependent COPD patient. He denies any recent cough or Covid exposures that he is aware of. His also reports he has been confused recently. Temperature has been up to 104. He complains of back pain. Allergies and Home Medications Allergies Coded Allergies: fentanyl (Verified Allergy, Severe, 08/08/19) meperidine (Verified Allergy, Unknown, 02/12/17) Uncoded Allergies: iv contrast (Adverse Reaction, Intermediate, 07/10/17) Home Medications Albuterol Sulfate 1 Puff Puff, 2 PUFF IH Q4H PRN for SHORTNESS OF BREATH, (Reported) 1 PUFF = 90 MCG Aspirin 81 Mg Tablet.dr, 81 MG PO HS, (Reported) Cyanocobalamin (Vitamin B-12) 1,000 Mcg Tablet, 1,000 MCG PO DAILY, (Reported) Cyclobenzaprine HCl 10 Mg Tablet, 10 MG PO BID PRN for MUSCLE SPASMS, (Reported) Furosemide 40 Mg Tablet, 80 MG PO DAILY, (Reported) TAKES 2 (40MG) TABLETS Gabapentin 100 Mg Capsule, 100 MG PO DAILY, (Reported) Gabapentin 100 Mg Capsule, 300 MG PO HS, (Reported) TAKES 3 (100MG) CAPSULES Hydrocodone Bit/Acetaminophen 1 Tab Tab, 1 TAB PO BID PRN for PAIN-MODERATE, (Reported) Insulin Aspart 300 Units/3 Ml Solution, 20 UNITS SQ 0800,1200, (Reported) Insulin Glargine,Hum.rec.anlog 100 Unit/1 Ml Vial, 70 UNIT SQ HS, (Reported) Levothyroxine Sodium 200 Mcg Tablet, 400 MCG PO DAILY, (Reported) TAKES 2 (200MCG) TABLETS Metformin HCl 500 Mg Tab.er.24, 1,000 MG PO BID, (Reported) TAKES 2 (500MG) TABLETS Metoprolol Succinate 100 Mg Tab.er.24h, 100-200 MG PO HS, (Reported) TAKES 1/2 TO 1 (200MG) TABLET DEPENDING ON BLOOD PRESSURE Metoprolol Succinate 200 Mg Tab.er.24h, 200 MG PO DAILY, (Reported) Omeprazole 20 Mg Capsule.dr, 20 MG PO DAILY, (Reported) Pravastatin Sodium 40 Mg Tablet, 20 MG PO HS, (Reported) TAKES 1/2 (40MG) TABLET Topiramate 50 Mg Tablet, 25-50 MG PO HS, (Reported) Patient Home Medication List Home Medication List Reviewed: Yes Review of Systems Review of Systems Constitutional: no symptoms reported EENTM: no symptoms reported Respiratory: see HPI Cardiovascular: no symptoms reported Gastrointestinal: no symptoms reported Genitourinary: no symptoms reported Musculoskeletal: see HPI Skin: see HPI Psychiatric/Neurological: No Symptoms Reported Hematologic/Lymphatic: No Symptoms Reported Immunological/Allergic: no symptoms reported Past Hgmwvmf-Ptjazy-Hjqama Hx Past Med/Social Hx: Reviewed Nursing Past Med/Soc Hx Patient Social History Alcohol Use: Denies Use Recreational Drug Use: No Type Used: Cigarettes Former Smoker, Quit: Feb 13, 1987 2nd Hand Smoke Exposure: No Recent Foreign Travel: No Contact w/Someone Who Travel: No Recent Infectious Disease Expo: No Recent Hopitalizations: No Physical Abuse: No Sexual Abuse: No Mistreated: No Fear: No Immunizations Up To Date Tetanus Booster (TDap): Unknown Date of Pneumonia Vaccine: Mar 29, 2017 Date of Influenza Vaccine: Mar 26, 2019 Seasonal Allergies Seasonal Allergies: No Past Medical History Surgeries: Yes (KNEE SURGERY, LEFT SHOULDER SURGERY, HERNIA REPAIR, ) Abdominal, Cardiac, Gallbladder, Orthopedic Respiratory: Yes (uses CPAP and oxygen at night.) Sleep Apnea, COPD Currently Using CPAP: Yes Currently Using BIPAP: No Cardiac: Yes (CHF) Cardiomyopathy, Chronic Edema/Swelling, Coronary Artery Disease, Heart Attack, High Cholesterol, Hypertension Neurological: Yes (TIA'S X 4; STROKE X 1) Neuropathy, Stroke, TIA Sexually Transmitted Disease: No HIV/AIDS: No Genitourinary: Yes Kidney Stones, Renal Failure Gastrointestinal: Yes Gastroesophageal Reflux Musculoskeletal: Yes (HIP FX; 2 TORN ROTATOR CUFFS; RIGHT HIP AND LOWER BACK P AIN ) Degenerate Disk Disease, Arthritis, Chronic Back Pain, Fractures Endocrine: Yes (MORBID OBESITY--WEIGHT 460#, PER PT ON 06/04/19) Hypothyroidsim, Diabetes, Non-Insulin dep HEENT: Yes Cataract Loss of Vision: Bilateral Hearing Impairment: Hard of Hearing, Bilateral Hearing Aide Cancer: No Psychosocial: No Integumentary: Yes (LEG CELLULITIS; ABDOMINAL WALL CELLULITIS/PANNICULITIS) Recent Skin Changes Blood Disorders: No Adverse Reaction/Blood Tranf: No Family Medical History Cardiovascular disease 19 FATHER 19 MOTHER Diabetes mellitus 19 FATHER 19 MOTHER Hypercholesterolemia 19 FATHER 19 MOTHER Hypertension 19 FATHER 19 MOTHER Myocardial infarction 19 FATHER 19 MOTHER Heart Disease, Diabetes, Hypertension Physical Exam-Suspected Sepsis Physical Exam Vital Signs Vital Signs - First Documented 06/05/20 06/05/20 00:43 05:02 Temp 37.9 Pulse 120 Resp 20 B/P (MAP) 111/62 (78) Pulse Ox 97 O2 Delivery Nasal Cannula O2 Flow Rate 4.00 Capillary Refill : Less Than 3 Seconds Blood Pressure Mean: 78 Height, Weight, BMI Height: 6'2.00" Weight: 371lbs. 1.0oz. 168.156429di; 55.00 BMI Method:Stated General Appearance: WD/WN, Mild Distress, Obese HEENT: PERRL/EOMI, Normal ENT Inspection Neck: Normal Inspection Respiratory: Lungs Clear, Normal Breath Sounds, No Accessory Muscle Use Cardiovascular: Regular Rate, Rhythm, No Murmur, Other (marked edema) Gastrointestinal: Non Tender, Soft Extremity: Pedal Edema, Swelling, Other (Legs are erythematous and hot to the touch bilaterally with weeping of purulent drainage. There is skin breakdown and foul odor. 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 He has made some remarks bordering on threatening with the nurses.) Skin: other (See extremity exam above) Focused Exam Lactate Level 06/05/20 01:25: Lactic Acid Level 1.67 Lactic Acid Level Progress/Results/Core Measures Suspected Sepsis Recent Fever Within 48 Hours: Yes Infection Criteria Present: Suspected New Infection New/Unexplained Altered Menta: No Sepsis Screen: Possible Sepsis Risk SIRS Temperature: Pulse: 120 Respiratory Rate: 20 Laboratory Tests 06/05/20 01:40: White Blood Count 14.5H 06/05/20 05:51: White Blood Count 15.6H Blood Pressure 111 /62 Mean: 78 06/05/20 01:25: Lactic Acid Level 1.67 Laboratory Tests 06/05/20 01:40: Creatinine 2.11H, INR Comment 1.2, Platelet Count 289, Total Bilirubin 0.9 06/05/20 05:51: Creatinine 2.15H, Platelet Count 346 Results/Orders Lab Results Laboratory Tests Test 06/05/20 01:03 06/05/20 01:25 06/05/20 01:30 06/05/20 01:40 Range/Units Coronavirus 2019 (GILMA) Negative Negative Lactic Acid Level 1.67 0.50-2.00 MMOL/L Urine Color YELLOW Urine Clarity CLOUDY Urine pH 5.5 5-9 Urine Specific [place] 1.020 1.016-1.022 Urine Protein 1+ H NEGATIVE Urine Glucose (UA) NEGATIVE NEGATIVE Urine Ketones NEGATIVE NEGATIVE Urine Nitrite NEGATIVE NEGATIVE Urine Bilirubin NEGATIVE NEGATIVE Urine Urobilinogen 0.2 < = 1.0 MG/DL Urine Leukocyte Esterase NEGATIVE NEGATIVE Urine RBC (Auto) TRACE-I NEGATIVE Urine RBC 0-2 /HPF Urine WBC 0-2 /HPF Urine Squamous Epithelial Cells RARE /HPF Urine Crystals NONE /LPF Urine Amorphous Sediment FEW LOY URATES H /LPF Urine Bacteria FEW H /HPF Urine Casts PRESENT /LPF Urine Granular Casts 2-5 H /LPF Urine Mucus NEGATIVE /LPF Urine Culture Indicated CULTURE PENDING White Blood Count 14.5 H 4.3-11.0 10^3/uL Red Blood Count 4.18 L 4.30-5.52 10^6/uL Hemoglobin 10.2 L 13.3-17.7 g/dL Hematocrit 37 L 40-54 % Mean Corpuscular Volume 89 80-99 fL Mean Corpuscular Hemoglobin 24 L 25-34 pg Mean Corpuscular Hemoglobin Concent 28 L 32-36 g/dL Red Cell Distribution Width 15.5 H 10.0-14.5 % Platelet Count 289 130-400 10^3/uL Mean Platelet Volume 10.5 9.0-12.2 fL Immature Granulocyte % (Auto) 1 % Neutrophils (%) (Auto) 86 H 42-75 % Lymphocytes (%) (Auto) 6 L 12-44 % Monocytes (%) (Auto) 7 0-12 % Eosinophils (%) (Auto) 1 0-10 % Basophils (%) (Auto) 0 0-10 % Neutrophils # (Auto) 12.5 H 1.8-7.8 10^3/uL Lymphocytes # (Auto) 0.8 L 1.0-4.0 10^3/uL Monocytes # (Auto) 1.0 0.0-1.0 10^3/uL Eosinophils # (Auto) 0.1 0.0-0.3 10^3/uL Basophils # (Auto) 0.0 0.0-0.1 10^3/uL Immature Granulocyte # (Auto) 0.1 0.0-0.1 10^3/uL Neutrophils % (Manual) 83 % Lymphocytes % (Manual) 4 % Monocytes % (Manual) 7 % Band Neutrophils 6 % Microcytosis MODERATE Prothrombin Time 15.8 H 12.2-14.7 SEC INR Comment 1.2 0.8-1.4 Activated Partial Thromboplast Time 38 H 24-35 SEC Sodium Level 135 135-145 MMOL/L Potassium Level 4.4 3.6-5.0 MMOL/L Chloride Level 99 98-107 MMOL/L Carbon Dioxide Level 24 21-32 MMOL/L Anion Gap 12 5-14 MMOL/L Blood Urea Nitrogen 41 H 7-18 MG/DL Creatinine 2.11 H 0.60-1.30 MG/DL Estimat Glomerular Filtration Rate 31 BUN/Creatinine Ratio 19 Glucose Level 196 H 70-105 MG/DL Calcium Level 8.4 L 8.5-10.1 MG/DL Corrected Calcium 9.1 8.5-10.1 MG/DL Total Bilirubin 0.9 0.1-1.0 MG/DL Aspartate Amino Transf (AST/SGOT) 20 5-34 U/L Alanine Aminotransferase (ALT/SGPT) 12 0-55 U/L Alkaline Phosphatase 265 H 40-136 U/L Lactate Dehydrogenase 155 125-220 U/L C-Reactive Protein High Sensitivity 12.26 H 0.00-0.50 MG/DL B-Type Natriuretic Peptide 260.5 H <100.0 PG/ML Total Protein 7.9 6.4-8.2 GM/DL Albumin 3.1 L 3.2-4.5 GM/DL Procalcitonin 0.51 H <0.10 NG/ML Test 06/05/20 03:05 06/05/20 05:51 Range/Units White Blood Count 15.6 H 4.3-11.0 10^3/uL Red Blood Count 4.29 L 4.30-5.52 10^6/uL Hemoglobin 10.6 L 13.3-17.7 g/dL Hematocrit 38 L 40-54 % Mean Corpuscular Volume 89 80-99 fL Mean Corpuscular Hemoglobin 25 25-34 pg Mean Corpuscular Hemoglobin Concent 28 L 32-36 g/dL Red Cell Distribution Width 15.6 H 10.0-14.5 % Platelet Count 346 130-400 10^3/uL Mean Platelet Volume 10.5 9.0-12.2 fL Immature Granulocyte % (Auto) 1 % Neutrophils (%) (Auto) 84 H 42-75 % Lymphocytes (%) (Auto) 7 L 12-44 % Monocytes (%) (Auto) 9 0-12 % Eosinophils (%) (Auto) 0 0-10 % Basophils (%) (Auto) 0 0-10 % Neutrophils # (Auto) 13.1 H 1.8-7.8 10^3/uL Lymphocytes # (Auto) 1.0 1.0-4.0 10^3/uL Monocytes # (Auto) 1.3 H 0.0-1.0 10^3/uL Eosinophils # (Auto) 0.1 0.0-0.3 10^3/uL Basophils # (Auto) 0.0 0.0-0.1 10^3/uL Immature Granulocyte # (Auto) 0.1 0.0-0.1 10^3/uL Sodium Level 134 L 135-145 MMOL/L Potassium Level 4.3 3.6-5.0 MMOL/L Chloride Level 102 98-107 MMOL/L Carbon Dioxide Level 21 21-32 MMOL/L Anion Gap 11 5-14 MMOL/L Blood Urea Nitrogen 42 H 7-18 MG/DL Creatinine 2.15 H 0.60-1.30 MG/DL Estimat Glomerular Filtration Rate 31 BUN/Creatinine Ratio 20 Glucose Level 193 H 70-105 MG/DL Calcium Level 8.4 L 8.5-10.1 MG/DL Micro Results Microbiology 06/05/20 Influenza Types A,B Antigen (ANGEL) - Final, Complete My Orders Orders - TIMOTHY GUALLPA MD Cbc With Automated Diff (06/05/20 01:08) Comprehensive Metabolic Panel (06/05/20 01:08) Blood Culture (06/05/20 01:08) Sputum Culture (06/05/20 01:08) Urinalysis (06/05/20 01:08) Urine Culture (06/05/20 01:08) Protime With Inr (06/05/20 01:08) Partial Thromboplastin Time (06/05/20 01:08) Chest 1 View, Ap/Pa Only (06/05/20 01:08) Ed Iv/Invasive Line Start (06/05/20 01:08) Ed Iv/Invasive Line Start (06/05/20 01:08) Vital Signs Adult Sepsis Patie Q15M (06/05/20 01:08) O2 (06/05/20 01:08) Remove Rings In Anticipation O (06/05/20 01:08) Lactic Acid Analyzer (06/05/20 01:08) Influenza A And B Antigens (06/05/20 01:08) Procalcitonin (Pct) (06/05/20 01:08) Hs C Reactive Protein (06/05/20 01:08) LDH (06/05/20 01:08) Covid 19 Inhouse Test (06/05/20 01:08) Cefepime Injection (Maxipime Injection) (06/05/20 01:15) BNP (06/05/20 01:11) Acetaminophen Tablet/Caplet (Tylenol T (06/05/20 01:30) Manual Differential (06/05/20 01:40) Morphine Injection (Morphine Injection (06/05/20 02:22) Coronavirus Sars-Cov-2 So 2018 (06/05/20 03:20) Medications Given in ED Current Medications Medications Dose Ordered Sig/Brittany Route Start Time Stop Time Status Last Admin Dose Admin Acetaminophen 650 mg ONCE ONCE PO 06/05/20 01:30 06/05/20 01:31 DC 06/05/20 01:43 650 MG Cefepime HCl 2000 mg/Sterile Water 20 ml @ 240 mls/hr ONCE ONCE IV 06/05/20:15 06/05/20 01:19 DC 06/05/20 01:42 240 MLS/HR Vital Signs/I&O 06/05/20 06/05/20 06/05/20 06/05/20 00:43 01:43 04:35 05:02 Temp 37.9 37.9 37.5 Pulse 120 116 123 Resp 20 20 24 B/P (MAP) 111/62 (78) 100/58 112/94 Pulse Ox 97 99 95 O2 Delivery Nasal Cannula O2 Flow Rate 4.00 4.00 3.50 06/05/20 06/05/20 06/05/20 06/05/20 05:17 07:43 07:58 10:15 Temp 37.5 Pulse 123 108 Resp 18 B/P (MAP) 113/53 (73) Pulse Ox 95 97 97 O2 Delivery Nasal Cannula Nasal Cannula Nasal Cannula O2 Flow Rate 4.00 3.00 4.00 Capillary Refill : Less Than 3 Seconds Blood Pressure Mean: 78 Progress Note : Progress Note Patient was seen and evaluated with septic work-up. Source of sepsis is likely cellulitis from the legs. Covid screening was negative. Patient's body habitus and weakness made his mobility and positioning very difficult. A hospital bed from the floor was brought to the ER to assist with this. Antibiotics and IV fluids were initiated in the ER. Diagnostic Imaging Diagonstic Imaging: Xray Plain Films/CT/US/NM/MRI: chest Comments Chest x-ray viewed by me and report reviewed. See report below: NAME: LONG YANEZ [facility] REC#: [id number] PT STATUS: ADM IN : 1955 PHYSICIAN: TIMOTHY GUALLPA MD ADMIT DATE: 06/05/20/4TH Signed Date of Exam:06/05/20 CHEST 1 VIEW, AP/PA ONLY EXAMINATION: Chest radiograph, portable AP view. DATE: 06/05/2020 3:13 AM INDICATION: 65-year-old male, sepsis. COMPARISON: August 26, 2019. FINDINGS: The patient is rotated. The heart is enlarged. There is no identified pneumothorax. There is no definite pleural effusion. There are technical limitations of the exam relating to patient body habitus and difficulties with exposure. There are potential bilateral interstitial and/or alveolar opacities. IMPRESSION: 1. Significantly technically limited exam. 2. Potential interstitial and/or alveolar opacities. Considerations would include interstitial edema and atypical infection. 3. Cardiomegaly. 4. Considering the limitations of the exam, further imaging should be considered. Dictated by: Dictated on workstation # [id number] Dict: 06/05/20 06 Trans: 06/05/20816 [facility] [id number] Interpreted by: MARY CORNELL MD Electronically signed by: MARY CORNELL MD 06/05/20816 Departure Communication (Admissions) Time/Spoke to Admitting Phy: 03:35 Dr. Lara Impression Primary Impression: Sepsis Qualified Codes: A41.9 - Sepsis, unspecified organism Additional Impressions: Cellulitis Qualified Codes: L03.119 - Cellulitis of unspecified part of limb Debility Disposition: ADMITTED INPATIENT Condition: Improved Admissions Decision to Admit Reason: Admit from ER (General) Decision to Admit/Date: Jun 05, 2020 Time/Decision to Admit Time: 00:55 Departure-Patient Inst. Referrals: NO,LOCAL PHYSICIAN (PCP) Primary Care Physician CARON MARTÍNEZ (Family) Primary Care Physician TIMOTHY GUALLPA MD Jun 05, 2020 03:49
[2020-06-05] MEDS ORDERED: LACTATED RINGERS 1,000 ML IV ONE (04:53)
[2020-06-05] MEDS ORDERED: ONDANSETRON 4 MG/2 ML (SDV) Z0FRAN IV PRN (05:15)
[2020-06-05] MEDS: LACTATED RINGERS 1,000 ML IV SCH ×2 (05:15→14:44)
[2020-06-05] MEDS ORDERED: ACETAMINOPHEN 500 MG TAB (TYLENOL) PO PRN (05:15)
--- NOTE | 2020-06-05 05:17 | NUR ---
OLNG YANEZ admitted to room 419-1, with an admitting diagnosis of sepsis, on 06/05/20 from ed via cart, accompanied by staff.LONG YANEZ introduced to surroundings, call light, bed controls, phone, TV, temperature control, lights, meal times, smoking policy, visitor policy, side rail policy, bathrooms and showers. Patient Rights given to patient in the handbook. LONG YANEZ verbalizes understanding that [facility] is not responsible for the loss or damage to any personal effects or valuables that are kept in the patients posession during their hospitalization. LONG YANEZ verbalizes understanding of Interdisciplinary Patient Education. Patient and/or family were informed about the Rapid Response Team and its purpose.
[2020-06-05 06:03] LABS: BASOPHILS % (AUTO) 0 % (0-10); EOSINOPHILS # (AUTO) 0.1 10^3/uL (0.0-0.3); EOSINOPHILS % (AUTO) 0 % (0-10); HEMATOCRIT 38 % (40-54); HEMOGLOBIN 10.6 g/dL (13.3-17.7); LYMPHOCYTES % (AUTO) 7 % (12-44); MEAN CORPUSCULAR HEMOGLOBIN 25 pg (25-34); MEAN CORPUSCULAR HGB CONC 28 g/dL (32-36); MEAN CORPUSCULAR VOLUME 89 fL (80-99); MEAN PLATELET VOLUME 10.5 fL (9.0-12.2); MONOCYTES # (AUTO) 1.3 10^3/uL (0.0-1.0); MONOCYTES % (AUTO) 9 % (0-12); NEUTROPHILS # (AUTO) 13.1 10^3/uL (1.8-7.8); NEUTROPHILS % (AUTO) 84 % (42-75); PLATELET COUNT 346 10^3/uL (130-400); WHITE BLOOD COUNT 15.6 10^3/uL (4.3-11.0)
[2020-06-05 06:20] LABS: POTASSIUM 4.3 MMOL/L (3.6-5.0)
[2020-06-05 06:21] LABS: CALCIUM 8.4 MG/DL (8.5-10.1)
[2020-06-05 06:26] LABS: CREATININE SERUM 2.15 MG/DL (0.60-1.30)
[2020-06-05] MEDS ORDERED: VANCOMYCIN INJECTION 2,000 MG in NS IV 500 ML 500 ML IV ONE (06:30)
[2020-06-05] MEDS: inSUlin ASPART (NovoLOG) 1 UNIT/0.01 ML (CHARGE PER UNIT) SC SCH ×4 (06:38→19:51)
--- NOTE | 2020-06-05 07:27 | Diagnostic Imaging Report ---
EXAMINATION: Chest radiograph, portable AP view. DATE: 06/05/2020 3:13 AM INDICATION: 65-year-old male, sepsis. COMPARISON: August 26, 2019. FINDINGS: The patient is rotated. The heart is enlarged. There is no identified pneumothorax. There is no definite pleural effusion. There are technical limitations of the exam relating to patient body habitus and difficulties with exposure. There are potential bilateral interstitial and/or alveolar opacities. IMPRESSION: 1. Significantly technically limited exam. 2. Potential interstitial and/or alveolar opacities. Considerations would include interstitial edema and atypical infection. 3. Cardiomegaly. 4. Considering the limitations of the exam, further imaging should be considered. Dictated by: Dictated on workstation # [id number]
[2020-06-05] MEDS: RT-ALBUTEROL INHALER HFA (VENTOLIN HFA) 18 GM IH SCH ×3 (08:34→20:48)
[2020-06-05] MEDS: CEFEPIME 1,000 MG/SWFI 10 ML IV PUSH IV SCH ×6 (08:59→19:52)
--- NOTE | 2020-06-05 09:35 | NUR ---
VANCOMYCIN DOSING SCR 2.15; ADJ BW 134 KG; CRCL ~ 63; BASED ON PREVIOUS DOSING WITH HIGH TROUGH LEVELS AND DATA FROM [facility] VANCOMYCIN CALCULATOR DOSE PATIENT WITH VANC 2 GM Q36H - WILL CHECK TROUGH LEVEL BEFORE 3RD DOSE 06/08 08:00 HOLD DOSE AND CONTACT PHARMACY IF LEVEL IS GREATER THAN 20 OR LESS THAN 10
[2020-06-05] MEDS: RT-ALBUTEROL INHALER HFA (VENTOLIN HFA) 18 GM IH PRN (10:15)
[2020-06-05] MEDS ORDERED: LEVO50CA4 PO (11:10)
[2020-06-05] MEDS ORDERED: TOPI25TA10 PO (11:10)
[2020-06-05] MEDS ORDERED: METO200T48 PO ×2 (11:10)
[2020-06-05] MEDS: morphine INJ 4 MG/ML 1 ML (VIAL/SYRINGE) IV PRN ×2 (12:39→15:27)
--- NOTE | 2020-06-05 14:25 | NUR ---
PT HAD MED BOTTLES WITH HIM- DUE TO ISOLATION ANTONIO GATHERED THE PTS BOTTLE AND SET THEM ON THE DESIGNED CART OUTSIDE HIS ROOM. I WENT THRU HIS BOTTLE AND CALLED HIS (MAREN) TO COMPLETE THE MED REC PT HAD MULTIPLE BOTTLES OF THE SAME MEDICATIONS WITH DIFFERENT FILL DATES, AND HE ALSO HAD EMPTY AND OLD BOTTLE. METFORMIN ER 500MG- PT DID NOT HAVE MED BOTTLE WITH HIM BUT [facility]-2020, HOWEVER ACCORDING TO MAREN THE PT IS NO LONGER TAKING. METOPROLOL ER 200MG- THE DIRECTIONS SHOW 1 TAB DAILY AND TAB HS, HOWEVER PT IS ONLY TAKING TAB DAILY PT HAS 2 FUROSEMIDE BOTTLES WITH HIM. ONE BOTTLE IS FUROSEMIDE 40MG , 2 TABS DAILY LAST FILLED 07-09-2019 #180/90DS THE OTHER IS FUROSEMIDE 40MG, 4 TABS DAILY LAST FILLED 03-05-2020 #120/30DS [facility] FUROSEMIDE HAS BEEN DISCONTINUED AND TORSEMIDE 100MG WAS DISPENSED ON 05-24-2020 #30/30DS. WHEN I SPOKE WITH MAREN ABOUT WHICH MEDICATION THE PT USED, SHE INFORMED ME THAT PT CAN NO LONGER FIND THE BOTTLE OF TORSEMIDE AND THEREFORE HAD SWITCHED BACK AND WAS TAKING FUROSEMIDE 40MG 1 TAB DAILY. TOPAMAX 25MG HAS DIRECTIONS OF 1 TAB BID PRN HOWEVER PT IS ONLY TAKING TAB HS PT USES NOVOLOG AND LANTUS BUT HE DID NOT BRING EITHER WITH HIM THE FOLLOWING ARE F[facility] DATES [facility]: 02-19-2020 VITAMIN B-12 #90 02-19-2020 CYCLOBENZAPRINE 10MG #60/30DS 02-24-2020 TOPIRAMATE 25MG #180 03-09-2020 LEVOTHYROXINE 50MCG #90/90DS 03-11-2020 OMEPRAZOLE 20MG #90/90DS- PT ALSO HAS A BOTTLE DATED 04-20-2019 #90 03-05-2020 GABAPENTIN 100MG #360/90DS 05-14-2020 METOPROLOL SUCC 200MG #135 05-28-2020 ASPIRIN 81MG #90/90DS 05-28-2020 PRAVASTATIN 40MG #45/90DS- PT ALSO HAS BOTTLES DATES 12-16-19 #45 AND 03-16-2020 #45. PT AND HIS ARE ADAMANT THAT HE TAKES TAB HS
--- NOTE | 2020-06-05 14:56 | History & Physical ---
HPI History of Present Illness: 65 yo male presented to ER due to worsening debility at home and worsening leg pain and swelling. He has been having trouble with his legs for quite some time and states he has seen the kidney doctor and another doctor but hasn't had any improvement. He has markedly swollen legs in spite of being prescribed high doses of diuretics and they are now red and weeping and he was unable to move at home for the last few days. He normally uses a scooter for the last year or so for mobility, but was still able to get from bed to bathroom, etc with a cane up until this. He denies fever at home. Source: patient Date seen by provider: Jun 05, 2020 Time Seen by Provider: 15:30 Attending Physician Thiago Lara MD PCP Jose Luis Huynh Consult Date of Admission Jun 05, 2020 at 03:44 Home Medications Home Medications Reviewed patient Home Medication Reconciliation performed by pharmacy medication reconciliations cardiovascular technician and/or nursing. Patients Allergies have been reviewed. Allergies Coded Allergies: fentanyl (Verified Allergy, Severe, 08/08/19) meperidine (Verified Allergy, Unknown, 02/12/17) Uncoded Allergies: iv contrast (Adverse Reaction, Intermediate, 07/10/17) [id number] Hx Patient Social History Alcohol Use: Denies Use Recreational Drug Use: No Type Used: Cigarettes 2nd Hand Smoke Exposure: No Recent Foreign Travel: No Contact w/other who traveled: No Recent Hopitalizations: No Recent Infectious Disease Expo: No Immunizations Up To Date Tetanus Booster (TDap): Unknown Date of Pneumonia Vaccine: Mar 29, 2017 Date of Influenza Vaccine: Feb 25, 2020 Past Medical History PMHx: CHF HTN DMII CKD COPD SurgHx: Shoulder surgery Family Medical History Significant Family History: Heart Disease, Diabetes, Hypertension Family History: Cardiovascular disease 19 FATHER 19 MOTHER Diabetes mellitus 19 FATHER 19 MOTHER Hypercholesterolemia 19 FATHER 19 MOTHER Hypertension 19 FATHER 19 MOTHER Myocardial infarction 19 FATHER 19 MOTHER Review of Systems ([facility]) Constitutional: No fever EENTM: No nose congestion, No throat pain Respiratory: No cough, No short of breath Cardiovascular: No chest pain Gastrointestinal: No abdominal pain, No constipation, No diarrhea, No nausea, No vomiting Genitourinary: No dysuria Musculoskeletal: back pain Skin: see HPI Psychiatric/Neurological: No Symptoms Reported Reviewed Test Results Reviewed Test Results Lab Laboratory Tests Test 06/05/20 01:03 06/05/20 01:25 06/05/20 01:30 06/05/20 01:40 Range/Units Coronavirus 2019 ([facility]) Negative Negative Lactic Acid Level 1.67 0.50-2.00 MMOL/L Urine Color YELLOW Urine Clarity CLOUDY Urine pH 5.5 5-9 Urine Specific [place] 1.020 1.016-1.022 Urine Protein 1+ H NEGATIVE Urine Glucose (UA) NEGATIVE NEGATIVE Urine Ketones NEGATIVE NEGATIVE Urine Nitrite NEGATIVE NEGATIVE Urine Bilirubin NEGATIVE NEGATIVE Urine Urobilinogen 0.2 < = 1.0 MG/DL Urine Leukocyte Esterase NEGATIVE NEGATIVE Urine RBC (Auto) TRACE-I NEGATIVE Urine RBC 0-2 /HPF Urine WBC 0-2 /HPF Urine Squamous Epithelial Cells RARE /HPF Urine Crystals NONE /LPF Urine Amorphous Sediment FEW LOY URATES H /LPF Urine Bacteria FEW H /HPF Urine Casts PRESENT /LPF Urine Granular Casts 2-5 H /LPF Urine Mucus NEGATIVE /LPF Urine Culture Indicated CULTURE PENDING White Blood Count 14.5 H 4.3-11.0 10^3/uL Red Blood Count 4.18 L 4.30-5.52 10^6/uL Hemoglobin 10.2 L 13.3-17.7 g/dL Hematocrit 37 L 40-54 % Mean Corpuscular Volume 89 80-99 fL Mean Corpuscular Hemoglobin 24 L 25-34 pg Mean Corpuscular Hemoglobin Concent 28 L 32-36 g/dL Red Cell Distribution Width 15.5 H 10.0-14.5 % Platelet Count 289 130-400 10^3/uL Mean Platelet Volume 10.5 9.0-12.2 fL Immature Granulocyte % (Auto) 1 % Neutrophils (%) (Auto) 86 H 42-75 % Lymphocytes (%) (Auto) 6 L 12-44 % Monocytes (%) (Auto) 7 0-12 % Eosinophils (%) (Auto) 1 0-10 % Basophils (%) (Auto) 0 0-10 % Neutrophils # (Auto) 12.5 H 1.8-7.8 10^3/uL Lymphocytes # (Auto) 0.8 L 1.0-4.0 10^3/uL Monocytes # (Auto) 1.0 0.0-1.0 10^3/uL Eosinophils # (Auto) 0.1 0.0-0.3 10^3/uL Basophils # (Auto) 0.0 0.0-0.1 10^3/uL Immature Granulocyte # (Auto) 0.1 0.0-0.1 10^3/uL Neutrophils % (Manual) 83 % Lymphocytes % (Manual) 4 % Monocytes % (Manual) 7 % Band Neutrophils 6 % Microcytosis MODERATE Prothrombin Time 15.8 H 12.2-14.7 SEC INR Comment 1.2 0.8-1.4 Activated Partial Thromboplast Time 38 H 24-35 SEC Sodium Level 135 135-145 MMOL/L Potassium Level 4.4 3.6-5.0 MMOL/L Chloride Level 99 98-107 MMOL/L Carbon Dioxide Level 24 21-32 MMOL/L Anion Gap 12 5-14 MMOL/L Blood Urea Nitrogen 41 H 7-18 MG/DL Creatinine 2.11 H 0.60-1.30 MG/DL Estimat Glomerular Filtration Rate 31 BUN/Creatinine Ratio 19 Glucose Level 196 H 70-105 MG/DL Calcium Level 8.4 L 8.5-10.1 MG/DL Corrected Calcium 9.1 8.5-10.1 MG/DL Total Bilirubin 0.9 0.1-1.0 MG/DL Aspartate Amino Transf (AST/SGOT) 20 5-34 U/L Alanine Aminotransferase (ALT/SGPT) 12 0-55 U/L Alkaline Phosphatase 265 H 40-136 U/L Lactate Dehydrogenase 155 125-220 U/L C-Reactive Protein High Sensitivity 12.26 H 0.00-0.50 MG/DL B-Type Natriuretic Peptide 260.5 H <100.0 PG/ML Total Protein 7.9 6.4-8.2 GM/DL Albumin 3.1 L 3.2-4.5 GM/DL Procalcitonin 0.51 H <0.10 NG/ML Test 06/05/20 03:05 06/05/20 05:51 06/05/20 10:37 06/05/20 15:01 Range/Units White Blood Count 15.6 H 4.3-11.0 10^3/uL Red Blood Count 4.29 L 4.30-5.52 10^6/uL Hemoglobin 10.6 L 13.3-17.7 g/dL Hematocrit 38 L 40-54 % Mean Corpuscular Volume 89 80-99 fL Mean Corpuscular Hemoglobin 25 25-34 pg Mean Corpuscular Hemoglobin Concent 28 L 32-36 g/dL Red Cell Distribution Width 15.6 H 10.0-14.5 % Platelet Count 346 130-400 10^3/uL Mean Platelet Volume 10.5 9.0-12.2 fL Immature Granulocyte % (Auto) 1 % Neutrophils (%) (Auto) 84 H 42-75 % Lymphocytes (%) (Auto) 7 L 12-44 % Monocytes (%) (Auto) 9 0-12 % Eosinophils (%) (Auto) 0 0-10 % Basophils (%) (Auto) 0 0-10 % Neutrophils # (Auto) 13.1 H 1.8-7.8 10^3/uL Lymphocytes # (Auto) 1.0 1.0-4.0 10^3/uL Monocytes # (Auto) 1.3 H 0.0-1.0 10^3/uL Eosinophils # (Auto) 0.1 0.0-0.3 10^3/uL Basophils # (Auto) 0.0 0.0-0.1 10^3/uL Immature Granulocyte # (Auto) 0.1 0.0-0.1 10^3/uL Sodium Level 134 L 135-145 MMOL/L Potassium Level 4.3 3.6-5.0 MMOL/L Chloride Level 102 98-107 MMOL/L Carbon Dioxide Level 21 21-32 MMOL/L Anion Gap 11 5-14 MMOL/L Blood Urea Nitrogen 42 H 7-18 MG/DL Creatinine 2.15 H 0.60-1.30 MG/DL Estimat Glomerular Filtration Rate 31 BUN/Creatinine Ratio 20 Glucose Level 193 H 70-105 MG/DL Calcium Level 8.4 L 8.5-10.1 MG/DL Glucometer 195 H 223 H 70-110 MG/DL Radiology CXR: IMPRESSION: 1. Significantly technically limited exam. 2. Potential interstitial and/or alveolar opacities. Considerations would include interstitial edema and atypical infection. 3. Cardiomegaly. 4. Considering the limitations of the exam, further imaging should be considered. Physical Exam-([facility]) Physical Exam Vital Signs VS - Last 72 Hours, by Label 06/05/20 06/05/20 06/05/20 06/05/20 00:43 01:43 04:35 05:02 Temp 37.9 37.9 37.5 Pulse 120 116 123 Resp 20 20 24 B/P (MAP) 111/62 (78) 100/58 112/94 Pulse Ox 97 99 95 O2 Delivery Nasal Cannula O2 Flow Rate 4.00 4.00 3.50 06/05/20 06/05/20 06/05/20 06/05/20 05:17 07:43 07:58 10:15 Temp 37.5 Pulse 123 108 Resp 18 B/P (MAP) 113/53 (73) Pulse Ox 95 97 97 O2 Delivery Nasal Cannula Nasal Cannula Nasal Cannula O2 Flow Rate 4.00 3.00 4.00 06/05/20 12:33 Temp 36.6 Pulse 106 Resp 20 B/P (MAP) 124/57 (79) Pulse Ox 98 O2 Delivery Nasal Cannula O2 Flow Rate 2.00 Capillary Refill : Less Than 3 Seconds General Appearance: mild distress, obese Respiratory: lungs clear, normal breath sounds Cardiovascular: regular rate, rhythm, no murmur Peripheral Pulses: 1+ Dorsalis Pedis (R), 1+ Left Dors-Pedis (L) Gastrointestinal: normal bowel sounds, non tender, soft Extremities: pedal edema (2+, weeping) Neurologic/Psychiatric: alert, normal mood/affect Skin: other (marked erythema and drainage of both lower legs, left worse than right) Assessment/Plan Assessment/Plan Admission Status: Inpatient Order (span 2 midnights) Reason for Inpatient Admission: Sepsis with multiple underlying comorbidities (1) Sepsis Status: Acute Assessment & Plan: Secondary to cellulitis. Started on cefepime and vancomycin. Qualifiers: Qualified Codes: A41.9 - Sepsis, unspecified organism (2) Chronic kidney disease (CKD) Status: Chronic Assessment & Plan: Creatinine possibly slightly above baseline at admit, appears baseline may be around 1.9-2. Renally dose medications and monitor. Qualifiers: Qualified Codes: N18.3 - Chronic kidney disease, stage 3 (moderate) (3) Diabetes mellitus Status: Chronic Assessment & Plan: On large doses of home insulin, will start partial doses and diabetic diet. Qualifiers: Qualified Codes: E11.65 - Type 2 diabetes mellitus with hyperglycemia; Z79.4 - [facility] (current) use of insulin (4) COPD (chronic obstructive pulmonary disease) Status: Chronic Assessment & Plan: On baseline 3 lpm supplemental oxygen, no apparent acute issues. Qualifiers: Qualified Codes: J43.1 - Panlobular emphysema (5) Supplemental oxygen dependent Status: Chronic (6) CHF (congestive heart failure) Status: Chronic Assessment & Plan: EF 30-35% in Jul. Has severe pedal edema but does not appear to be in acute failure. Qualifiers: Qualified Codes: I50.22 - Chronic systolic (congestive) heart failure (7) Cellulitis Status: Acute Qualifiers: Qualified Codes: L03.119 - Cellulitis of unspecified part of limb (8) Debility Status: Acute Assessment & Plan: PT/OT eval (9) DVT prophylaxis Status: Acute Assessment & Plan: Enoxaparin Clinical Quality Measures DVT/VTE Risk/Contraindication: Risk Factor Score Per Nursin RFS Level Per Nursing on Admit: 4+=Very High THIAGO LARA MD Jun 05, 2020 14:56
[2020-06-05] MEDS ORDERED: CYCLOBENZAPRINE 10 MG (FLEXERIL) TAB PO PRN (15:00)
[2020-06-05] MEDS: ENOXAPARIN 60 MG/0.6 ML (LOVENOX) SYR SC SCH (15:25)
[2020-06-05] MEDS: SIMvastatin 10 MG (ZOCOR) TAB PO SCH (19:52)
[2020-06-05] MEDS: GABAPENTIN 100 MG (NEURONTIN) CAP PO SCH (19:52)
[2020-06-05] MEDS: ASPIRIN E.C. 81 MG (ECOTRIN) TAB PO SCH (19:52)
[2020-06-06] MEDS: LACTATED RINGERS 1,000 ML IV SCH ×2 (01:41→12:17)
[2020-06-06] MEDS: LEVOTHYROXINE 50 MCG (LEVOTHROID) TAB PO SCH (01:45)
[2020-06-06] MEDS: CEFEPIME 1,000 MG/SWFI 10 ML IV PUSH IV SCH ×8 (01:45→20:18)
[2020-06-06 04:03] VITALS: BP 133/73
[2020-06-06] MEDS: ENOXAPARIN 60 MG/0.6 ML (LOVENOX) SYR SC SCH ×2 (04:04→17:51)
[2020-06-06] MEDS: inSUlin ASPART (NovoLOG) 1 UNIT/0.01 ML (CHARGE PER UNIT) SC SCH ×4 (05:56→20:19)
[2020-06-06 06:00] LABS: BASOPHILS % (AUTO) 0 % (0-10); EOSINOPHILS # (AUTO) 0.2 10^3/uL (0.0-0.3); EOSINOPHILS % (AUTO) 2 % (0-10); HEMATOCRIT 38 % (40-54); HEMOGLOBIN 10.2 g/dL (13.3-17.7); LYMPHOCYTES # (AUTO) 1.3 10^3/uL (1.0-4.0); LYMPHOCYTES % (AUTO) 12 % (12-44); MEAN CORPUSCULAR HEMOGLOBIN 24 pg (25-34); MEAN CORPUSCULAR HGB CONC 27 g/dL (32-36); MEAN CORPUSCULAR VOLUME 90 fL (80-99); MEAN PLATELET VOLUME 10.5 fL (9.0-12.2); MONOCYTES # (AUTO) 1.4 10^3/uL (0.0-1.0); MONOCYTES % (AUTO) 13 % (0-12); NEUTROPHILS # (AUTO) 7.3 10^3/uL (1.8-7.8); NEUTROPHILS % (AUTO) 71 % (42-75); PLATELET COUNT 301 10^3/uL (130-400); WHITE BLOOD COUNT 10.3 10^3/uL (4.3-11.0)
[2020-06-06 06:20] LABS: POTASSIUM 4.7 MMOL/L (3.6-5.0)
[2020-06-06 06:21] LABS: CALCIUM 8.6 MG/DL (8.5-10.1)
[2020-06-06 06:25] LABS: CREATININE SERUM 2.33 MG/DL (0.60-1.30)
[2020-06-06] MEDS: RT-ALBUTEROL INHALER HFA (VENTOLIN HFA) 18 GM IH SCH ×2 (07:51→21:41)
[2020-06-06 08:00] VITALS: BP 110/66
[2020-06-06] MEDS: PANTOPRAZOLE 20 MG TABLET (PROTONIX) PO SCH (08:36)
[2020-06-06] MEDS: GABAPENTIN 100 MG (NEURONTIN) CAP PO SCH ×2 (08:37→20:20)
[2020-06-06] MEDS: CYANOCOBALAMIN 1,000 MCG (VITAMIN B-12) TABLET PO SCH (08:37)
--- NOTE | 2020-06-06 11:38 | Physical Therapy Progress Note ---
Therapy Progress Note Orders received for therapy. Pt. adamantly refuses out of bed activity at this time stating he just walked to/from bathroom and isn't doing anything else right now. Pt. reports pain in (B) LE's and low back rated as 3/10. Pt. stated he did "just fine" getting to the bathroom using a FWW. Pt. again refuses to even sit at side of bed or get into chair. We will attempt PT evaluation on 06/08. 1, visit only [id number] ELIGIO SPEAR PT Jun 06, 2020 11:38
[2020-06-06] MEDS: morphine INJ 4 MG/ML 1 ML (VIAL/SYRINGE) IV PRN ×2 (11:56→21:21)
--- NOTE | 2020-06-06 13:20 | Progress Note ---
Subjective Subjective/Events-last exam Afebrile. Still having back pain, legs feel a little better. Focused Exam Lactate Level 06/05/20 01:25: Lactic Acid Level 1.67 Objective Exam Last Set of Vital Signs Vital Signs Date Time Temp Pulse Resp B/P (MAP) Pulse Ox O2 Delivery O2 Flow Rate FiO2 06/06/20 08:00 36.5 102 20 110/66 (81) 95 Nasal Cannula 3.00 Capillary Refill : Greater Than 3 Seconds I&O Intake and Output 06/06/20 00:00 Intake Total 3499 ml Output Total 900 ml Balance 2599 ml Intake Oral 1939 ml IV Total 1560 ml Output Urine Total 900 ml Daily Weight Change No No General: Alert, No Acute Distress Heart: Regular Rate, No Murmurs Skin: Other (marked edema and weeping of both lower legs with some places ulcerated and a few spots of blood) Neuro: Normal Speech Psych/Mental Status: Mood NL Results/Procedures Lab Laboratory Tests 06/05/20 15:01: Glucometer 223H 06/05/20 19:07: Glucometer 212H 06/06/20 05:35: White Blood Count 10.3, Red Blood Count 4.22L, Hemoglobin 10.2L, Hematocrit 38L, Mean Corpuscular Volume 90, Mean Corpuscular Hemoglobin 24L, Mean Corpuscular Hemoglobin Concent 27L, Red Cell Distribution Width 15.8H, Platelet Count 301, Mean Platelet Volume 10.5, Immature Granulocyte % (Auto) 1, Neutrophils (%) (Auto) 71, Lymphocytes (%) (Auto) 12, Monocytes (%) (Auto) 13H, Eosinophils (%) (Auto) 2, Basophils (%) (Auto) 0, Neutrophils # (Auto) 7.3, Lymphocytes # (Auto) 1.3, Monocytes # (Auto) 1.4H, Eosinophils # (Auto) 0.2, Basophils # (Auto) 0.0, Immature Granulocyte # (Auto) 0.1, Sodium Level 133L, Potassium Level 4.7, Chloride Level 99, Carbon Dioxide Level 23, Anion Gap 11, Blood Urea Nitrogen 46H, Creatinine 2.33H, Estimat Glomerular Filtration Rate 28, BUN/Creatinine Ratio 20, Glucose Level 216H, Calcium Level 8.6 06/06/20 05:49: Glucometer 207H 12/12/20 11:52: Glucometer 280H Microbiology 06/05/20 Urine Culture - Final, Complete NO GROWTH 06/05/20 Influenza Types A,B Antigen (ANGEL) - Final, Complete Radiology CXR: IMPRESSION: 1. Significantly technically limited exam. 2. Potential interstitial and/or alveolar opacities. Considerations would include interstitial edema and atypical infection. 3. Cardiomegaly. 4. Considering the limitations of the exam, further imaging should be considered. Assessment/Plan Assessment/Plan (1) Sepsis Status: Acute Assessment & Plan: Secondary to cellulitis. Started on cefepime and vancomycin. Qualifiers: Qualified Codes: A41.9 - Sepsis, unspecified organism (2) Chronic kidney disease (CKD) Status: Chronic Assessment & Plan: Creatinine possibly slightly above baseline at admit, appears baseline may be around 1.9-2. Renally dose medications and monitor. Trending up in spite of IV fluids, will hold to avoid fluid overload and monito r. Discussed with patient if electrolyte abnormalities occur, may need to transfer to facility with dialysis capabilities. Qualifiers: Qualified Codes: N18.3 - Chronic kidney disease, stage 3 (moderate) (3) Diabetes mellitus Status: Chronic Assessment & Plan: On large doses of home insulin, will start partial doses and diabetic diet. Qualifiers: Qualified Codes: E11.65 - Type 2 diabetes mellitus with hyperglycemia; Z79.4 - alf (current) use of insulin (4) COPD (chronic obstructive pulmonary disease) Status: Chronic Assessment & Plan: On baseline 3 lpm supplemental oxygen, no apparent acute issues. Qualifiers: Qualified Codes: J43.1 - Panlobular emphysema (5) Supplemental oxygen dependent Status: Chronic (6) CHF (congestive heart failure) Status: Chronic Assessment & Plan: EF 30-35% in Fe. Has severe pedal edema but does not appear to be in acute failure. Qualifiers: Qualified Codes: I50.22 - Chronic systolic (congestive) heart failure (7) Cellulitis Status: Acute Qualifiers: Qualified Codes: L03.119 - Cellulitis of unspecified part of limb (8) Debility Status: Acute Assessment & Plan: PT/OT eval (9) DVT prophylaxis Status: Acute Assessment & Plan: Enoxaparin Clinical Quality Measures DVT/VTE Risk/Contraindication: Risk Factor Score Per Nursin RFS Level Per Nursing on Admit: 4+=Very High THIAGO CAPONE MD Jun 06, 2020 13:20
[2020-06-06] MEDS ORDERED: FUROSEMIDE 40 MG (LASIX) TAB PO ONE (13:30)
[2020-06-06 16:13] VITALS: BP 66/66
--- NOTE | 2020-06-06 18:24 | NUR ---
Notified Dr Lara that patient urine was dominguez colored.
[2020-06-06] MEDS: SIMvastatin 10 MG (ZOCOR) TAB PO SCH (20:19)
[2020-06-06] MEDS: ASPIRIN E.C. 81 MG (ECOTRIN) TAB PO SCH (20:20)
[2020-06-06] MEDS ORDERED: VANCOMYCIN 2000 MG/NS 500 ML IVPB IV SCH ×2 (21:00)
[2020-06-07] VITALS: BP 132/72
[2020-06-07] MEDS: CEFEPIME 1,000 MG/SWFI 10 ML IV PUSH IV SCH ×8 (03:22→19:40)
[2020-06-07] MEDS: LEVOTHYROXINE 50 MCG (LEVOTHROID) TAB PO SCH (03:22)
[2020-06-07] MEDS: ENOXAPARIN 60 MG/0.6 ML (LOVENOX) SYR SC SCH ×2 (03:22→16:25)
[2020-06-07] MEDS: RT-ALBUTEROL INHALER HFA (VENTOLIN HFA) 18 GM IH SCH ×4 (03:23→19:30)
--- NOTE | 2020-06-07 06:50 | Progress Note ---
OPAL AMADOR MED STUDENT 06/07/20 0650: Subjective Subjective/Events-last exam HPI: Mr. Adam Sanders is a 65 yo M presented to ER on 06/05 due to worsening debility at home and worsening leg pain and swelling. He has been having trouble with his legs for quite some time and states he has seen the kidney doctor and another doctor but hasn't had any improvement. He has markedly swollen legs in spite of being prescribed high doses of diuretics and they are now red and weeping and he was unable to move at home for the last few days. He uses a scooter for the last year for mobility, but was still able to get from bed to bathroom, etc with a cane up until this. He denies fever at home. Subjective: He is doing well and has no major complaints today. He reports his pain is better today and denies any fever, chills, or lightheadedness. Review of Systems General: No Chills HEENT: No Head Aches Pulmonary: No Dyspnea, No Cough Cardiovascular: No: Chest Pain, Palpitations Gastrointestinal: Constipation; No: Abdominal Pain, Diarrhea Focused Exam Lactate Level 06/05/20 01:25: Lactic Acid Level 1.67 Objective Exam Last Set of Vital Signs Vital Signs Date Time Temp Pulse Resp B/P (MAP) Pulse Ox O2 Delivery O2 Flow Rate FiO2 06/07/20 00:00 36.2 110 21 132/72 (92) 95 Nasal Cannula 3.00 Capillary Refill : Greater Than 3 SecondsGreater Than 3 Seconds I&O Intake and Output 06/07/20 00:00 Intake Total 6300 ml Output Total 1275 ml Balance 5025 ml Intake Oral 1760 ml IV Total 4540 ml Output Urine Total 1275 ml General: Alert, Cooperative, No Acute Distress HEENT: Atraumatic, EOMI, Mucous Memb Moist/[place] Lungs: Clear to Auscultation, Normal Air Movement Heart: No Murmurs, Other (patient is tacycardic with normal rythm) Abdomen: Normal Bowel Sounds, No Tenderness, Other (obese ) Extremities: No Clubbing, No Cyanosis, Other (Legs are edematous with rubor and calor present to the knees. ) Skin: Other (Skin breakdown on lower legs circumfrentially due to swelling and infection with seaping nature to the wound.) Psych/Mental Status: Mental Status NL, Mood NL Results/Procedures Lab Laboratory Tests 06/06/20 11:52: Glucometer 280H 06/06/20 17:35: Glucometer 246H 06/06/20 20:01: Glucometer 260H 06/07/20 06:31: Glucometer 176H Microbiology 06/05/20 Blood Culture - Preliminary, Resulted No growth 06/05/20 Urine Culture - Final, Complete NO GROWTH 06/05/20 Influenza Types A,B Antigen (ANGEL) - Final, Complete Radiology CXR: IMPRESSION: 1. Significantly technically limited exam. 2. Potential interstitial and/or alveolar opacities. Considerations would include interstitial edema and atypical infection. 3. Cardiomegaly. 4. Considering the limitations of the exam, further imaging should be considered . Assessment/Plan Assessment/Plan Assessment & Plan Mr. Adam Sanders is a 65 yo M with a medical history of CHF, HTN, DM type 2 on insulin, CKD, and COPD who presented on 06/05 for cellulitis of his legs and meeting criteria for sepsis. (1) Sepsis Status: Acute Assessment & Plan: Secondary to cellulitis. Started on cefepime and vancomycin on admission. Cultures returned as negative Discontinue vancomycin due to negative cultures and impaired kidney function. Qualifiers: Qualified Codes: A41.9 - Sepsis, unspecified organism (2) Chronic kidney disease (CKD) Status: Chronic Assessment & Plan: Creatinine possibly slightly above baseline at admit, appears baseline may be around 1.9-2. Renally dose medications and monitor. Trending up in spite of IV fluids, will hold to avoid fluid overload and monitor. Discussed with patient if electrolyte abnormalities occur, may need to transfer to facility with dialysis capabilities. Qualifiers: Qualified Codes: N18.3 - Chronic kidney disease, stage 3 (moderate) (3) Diabetes mellitus Status: Chronic Assessment & Plan: On large doses of home insulin, on partial doses and diabetic diet in hospital. Start 40 units Detimir BID Increase to sliding scale C Qualifiers: Qualified Codes: E11.65 - Type 2 diabetes mellitus with hyperglycemia; Z79.4 - residential (current) use of insulin (4) COPD (chronic obstructive pulmonary disease) Status: Chronic Assessment & Plan: On baseline 3 lpm supplemental oxygen, no apparent acute issues. Qualifiers: Qualified Codes: J43.1 - Panlobular emphysema (5) Supplemental oxygen dependent Status: Chronic (6) CHF (congestive heart failure) Status: Chronic Assessment & Plan: EF 30-35% in Feb. Has severe pedal edema but does not appear to be in acute failure. Qualifiers: Qualified Codes: I50.22 - Chronic systolic (congestive) heart failure (7) Cellulitis Status: Acute Qualifiers: Qualified Codes: L03.119 - Cellulitis of unspecified part of limb (8) Debility Status: Acute Assessment & Plan: PT/OT eval (9) DVT prophylaxis Status: Acute Assessment & Plan: Enoxaparin Clinical Quality Measures DVT/VTE Risk/Contraindication: Risk Factor Score Per Nursin RFS Level Per Nursing on Admit: 4+=Very High THIAGO CAPONE MD 06/07/20 0807: Assessment/Plan Assessment/Plan (1) Sepsis Status: Acute Assessment & Plan: Secondary to cellulitis. Started on cefepime and vancomycin on admission. Cultures returned as negative Discontinue vancomycin due to negative cultures and impaired kidney function. Qualifiers: Qualified Codes: A41.9 - Sepsis, unspecified organism (2) Chronic kidney disease (CKD) Status: Chronic Assessment & Plan: Creatinine possibly slightly above baseline at admit, appears baseline may be around 1.9-2. Renally dose medications and monitor. Trending up in spite of IV fluids, will hold to avoid fluid overload and monitor. Discussed with patient if electrolyte abnormalities occur, may need to transfer to facility with dialysis capabilities. 06/07 creatinine stable, monitor. Qualifiers: Qualified Codes: N18.3 - Chronic kidney disease, stage 3 (moderate) (3) Diabetes mellitus Status: Chronic Assessment & Plan: On large doses of home insulin, on partial doses and diabetic diet in hospital. Start 40 units Detimir BID Increase to sliding scale C Qualifiers: Qualified Codes: E11.65 - Type 2 diabetes mellitus with hyperglycemia; Z79.4 - residential (current) use of insulin (4) COPD (chronic obstructive pulmonary disease) Status: Chronic Assessment & Plan: On baseline 3 lpm supplemental oxygen, no apparent acute issues. Qualifiers: Qualified Codes: J43.1 - Panlobular emphysema (5) Supplemental oxygen dependent Status: Chronic (6) CHF (congestive heart failure) Status: Chronic Assessment & Plan: EF 30-35% in Feb. Has severe pedal edema but does not appear to be in acute failure. Qualifiers: Qualified Codes: I50.22 - Chronic systolic (congestive) heart failure (7) Cellulitis Status: Acute Qualifiers: Qualified Codes: L03.119 - Cellulitis of unspecified part of limb (8) Debility Status: Acute Assessment & Plan: PT/OT eval (9) DVT prophylaxis Status: Acute Assessment & Plan: Enoxaparin Supervisory-Addendum Brief Verification & Attestation Participated in pt care: history, MDM Personally performed: exam, history, MDM Care discussed with: Medical Student Procedures: n/a I personally did my own history and exam today and my findings match those docum ented by the medical student. I directed the plan of care as documented by the medical student. OPAL AMADOR MED STUDENT Jun 07, 2020 06:50 THIAGO CAPONE MD Jun 07, 2020 08:07
[2020-06-07 07:30] VITALS: BP 131/68
[2020-06-07 07:44] LABS: BASOPHILS # (AUTO) 0.1 10^3/uL (0.0-0.1); BASOPHILS % (AUTO) 1 % (0-10); EOSINOPHILS # (AUTO) 0.2 10^3/uL (0.0-0.3); EOSINOPHILS % (AUTO) 2 % (0-10); HEMATOCRIT 38 % (40-54); HEMOGLOBIN 10.2 g/dL (13.3-17.7); LYMPHOCYTES # (AUTO) 1.2 10^3/uL (1.0-4.0); LYMPHOCYTES % (AUTO) 11 % (12-44); MEAN CORPUSCULAR HEMOGLOBIN 24 pg (25-34); MEAN CORPUSCULAR HGB CONC 27 g/dL (32-36); MEAN CORPUSCULAR VOLUME 89 fL (80-99); MEAN PLATELET VOLUME 10.4 fL (9.0-12.2); MONOCYTES % (AUTO) 9 % (0-12); NEUTROPHILS # (AUTO) 8.3 10^3/uL (1.8-7.8); NEUTROPHILS % (AUTO) 76 % (42-75); PLATELET COUNT 319 10^3/uL (130-400); WHITE BLOOD COUNT 10.9 10^3/uL (4.3-11.0)
[2020-06-07 07:57] LABS: POTASSIUM 4.3 MMOL/L (3.6-5.0)
[2020-06-07 07:58] LABS: CALCIUM 8.8 MG/DL (8.5-10.1)
[2020-06-07 08:02] LABS: CREATININE SERUM 2.33 MG/DL (0.60-1.30)
[2020-06-07] MEDS: CYANOCOBALAMIN 1,000 MCG (VITAMIN B-12) TABLET PO SCH (09:15)
[2020-06-07] MEDS: meTOprolol SUCCINATE 100 MG (TOPROL XL) TAB PO SCH (09:21)
[2020-06-07] MEDS: PANTOPRAZOLE 20 MG TABLET (PROTONIX) PO SCH (09:21)
[2020-06-07] MEDS: GABAPENTIN 100 MG (NEURONTIN) CAP PO SCH ×2 (09:21→19:40)
[2020-06-07] MEDS: FUROSEMIDE 40 MG (LASIX) TAB PO SCH (09:22)
[2020-06-07] MEDS: inSUlin ASPART (NovoLOG) 1 UNIT/0.01 ML (CHARGE PER UNIT) SC SCH ×3 (12:20→19:39)
[2020-06-07 15:54] VITALS: BP 125/66
[2020-06-07] MEDS: morphine INJ 4 MG/ML 1 ML (VIAL/SYRINGE) IV PRN ×2 (18:08→20:46)
[2020-06-07] MEDS: DOCUSATE SODIUM 100 MG (COLACE) CAP PO SCH (19:40)
[2020-06-07] MEDS: ASPIRIN E.C. 81 MG (ECOTRIN) TAB PO SCH (19:40)
[2020-06-07] MEDS: SIMvastatin 10 MG (ZOCOR) TAB PO SCH (19:49)
[2020-06-08 00:03] VITALS: BP 114/54
[2020-06-08] MEDS: LEVOTHYROXINE 50 MCG (LEVOTHROID) TAB PO SCH (01:55)
[2020-06-08] MEDS: CEFEPIME 1,000 MG/SWFI 10 ML IV PUSH IV SCH ×8 (01:55→20:48)
[2020-06-08] MEDS: RT-ALBUTEROL INHALER HFA (VENTOLIN HFA) 18 GM IH SCH ×4 (01:59→20:48)
[2020-06-08] MEDS: ENOXAPARIN 60 MG/0.6 ML (LOVENOX) SYR SC SCH ×2 (06:09→16:15)
[2020-06-08] MEDS: inSUlin ASPART (NovoLOG) 1 UNIT/0.01 ML (CHARGE PER UNIT) SC SCH ×4 (06:16→20:47)
[2020-06-08 07:54] LABS: BASOPHILS # (AUTO) 0.1 10^3/uL (0.0-0.1); BASOPHILS % (AUTO) 1 % (0-10); EOSINOPHILS # (AUTO) 0.3 10^3/uL (0.0-0.3); EOSINOPHILS % (AUTO) 3 % (0-10); HEMATOCRIT 43 % (40-54); HEMOGLOBIN 11.8 g/dL (13.3-17.7); LYMPHOCYTES % (AUTO) 10 % (12-44); MEAN CORPUSCULAR HEMOGLOBIN 24 pg (25-34); MEAN CORPUSCULAR HGB CONC 28 g/dL (32-36); MEAN CORPUSCULAR VOLUME 87 fL (80-99); MEAN PLATELET VOLUME 10.2 fL (9.0-12.2); MONOCYTES # (AUTO) 0.9 10^3/uL (0.0-1.0); MONOCYTES % (AUTO) 10 % (0-12); NEUTROPHILS # (AUTO) 6.9 10^3/uL (1.8-7.8); NEUTROPHILS % (AUTO) 75 % (42-75); PLATELET COUNT 214 10^3/uL (130-400); WHITE BLOOD COUNT 9.2 10^3/uL (4.3-11.0)
[2020-06-08 08:00] VITALS: BP 114/58
[2020-06-08] MEDS ORDERED: TROUGH ORDER-PHARMACY XX NR (08:00)
[2020-06-08 08:03] LABS: POTASSIUM 5.1 MMOL/L (3.6-5.0)
[2020-06-08 08:05] LABS: CALCIUM 8.9 MG/DL (8.5-10.1)
[2020-06-08 08:09] LABS: CREATININE SERUM 2.56 MG/DL (0.60-1.30)
[2020-06-08] MEDS: DOCUSATE SODIUM 100 MG (COLACE) CAP PO SCH ×2 (08:32→20:49)
[2020-06-08] MEDS: meTOprolol SUCCINATE 100 MG (TOPROL XL) TAB PO SCH (08:32)
[2020-06-08] MEDS: CYANOCOBALAMIN 1,000 MCG (VITAMIN B-12) TABLET PO SCH (08:32)
[2020-06-08] MEDS: FUROSEMIDE 40 MG (LASIX) TAB PO SCH (08:32)
[2020-06-08] MEDS: GABAPENTIN 100 MG (NEURONTIN) CAP PO SCH ×2 (08:32→20:47)
[2020-06-08] MEDS: PANTOPRAZOLE 20 MG TABLET (PROTONIX) PO SCH (08:32)
--- NOTE | 2020-06-08 09:09 | NUR ---
PATIENT GIVEN WARM PRUNE JUICE AND COFFEE FOR CONSTIPATION. DENIES NEEDS OR C/O AT THIS TIME. CONT TO MONITOR.
--- NOTE | 2020-06-08 10:13 | NUR ---
DR ENAMORADO NOTIFIED OF NEW CONSULTATION.
[2020-06-08] MEDS ORDERED: LACTULOSE SYRUP 10GM/15ML (ENULOSE) 30ML UDC PO NR (10:15)
[2020-06-08] MEDS ORDERED: polyethylene glycoL POWDER 17 GM (MIRALAX) PACK PO ONE (10:15)
[2020-06-08] MEDS ORDERED: polyethylene glycoL POWDER 17 GM (MIRALAX) PACK PO NR (10:15)
[2020-06-08] MEDS ORDERED: LACTULOSE SYRUP 10GM/15ML (ENULOSE) 30ML UDC ONE (10:19)
[2020-06-08] MEDS ORDERED: SENNOSIDES 8.6 MG (SENOKOT) TAB ONE (10:19)
[2020-06-08] MEDS ORDERED: polyethylene glycoL POWDER 17 GM (MIRALAX) PACK ONE (10:19)
--- NOTE | 2020-06-08 10:24 | Physical Therapy Progress Note ---
Therapy Progress Note Patient adamantly declined PT stating, "I don't feel like it. When I want to get up I will. I don't need you." Nursing notified. PT will attempt later today. 1 ref ([phone]) JOSE WALL PT Jun 08, 2020 10:24
--- NOTE | 2020-06-08 10:34 | Progress Note - Hospitalist ---
Subjective HPI/CC On Admission Date Seen by Provider: Jun 08, 2020 Time Seen by Provider: 10:00 Subjective/Events-last exam Wound care will be consulted Pain from legs in the evening and night Legs are weeping still Chronic debility Creatinine 2.5 Morbid obesity precludes anything but a poor prognosis Needs [place] [facility] Review of Systems General: Fatigue, Malaise Musculoskeletal: leg pain Neurological: Weakness Objective Exam Vital Signs Vital Signs Date Time Temp Pulse Resp B/P (MAP) Pulse Ox O2 Delivery O2 Flow Rate FiO2 06/08/20 23:22 36.0 86 20 114/56 (75) 96 Nasal Cannula 3.00 Capillary Refill : Greater Than 3 SecondsGreater Than 3 Seconds General Appearance: No Apparent Distress, WD/WN, Chronically ill, Obese Respiratory: Chest Non Tender, Lungs Clear, Normal Breath Sounds, No Accessory Muscle Use, No Respiratory Distress Cardiovascular: Regular Rate, Rhythm, No Edema, No Gallop, No JVD, No Murmur, Normal Peripheral Pulses Neurologic/Psychiatric: Alert, Oriented x3, No Motor/Sensory Deficits, Normal Mood/Affect Skin: Other (rash of legs with severe venous stasis dermatitis with erythema) Results/Procedures Lab Laboratory Tests 06/08/20 07:32 Patient resulted labs reviewed. Assessment/Plan Assessment and Plan Assess & Plan/Chief Complaint Assessment: Sepsis Lower extremities cellulitis Venous stasis dermatitis chronic CKD DM Obesity Plan: IV abx Monitor creatinine Wound care Diagnosis/Problems Diagnosis/Problems (1) Sepsis Status: Acute Qualifiers: Sepsis type: sepsis due to unspecified organism Sepsis acute organ dysfunct ion status: without acute organ dysfunction Qualified Codes: A41.9 - Sepsis, unspecified organism (2) Cellulitis Status: Acute Qualifiers: Site of cellulitis: extremity Site of cellulitis of extremity: lower extremity Laterality: unspecified laterality Qualified Codes: L03.119 - Cellulitis of unspecified part of limb (3) Debility Status: Acute (4) CHF (congestive heart failure) Status: Chronic Qualifiers: Heart failure type: systolic Heart failure chronicity: chronic Qualified Codes: I50.22 - Chronic systolic (congestive) heart failure (5) Supplemental oxygen dependent Status: Chronic (6) COPD (chronic obstructive pulmonary disease) Status: Chronic Qualifiers: COPD type: emphysema Emphysema type: panlobular Qualified Codes: J43.1 - Panlobular emphysema (7) Diabetes mellitus Status: Chronic Qualifiers: Diabetes mellitus type: type 2 Diabetes mellitus senior care insulin use: with superintendent container terminal use Diabetes mellitus complication status: with hyperglycemia Qualified Codes: E11.65 - Type 2 diabetes mellitus with hyperglycemia; Z79.4 - [facility] (current) use of insulin (8) Chronic kidney disease (CKD) Status: Chronic Qualifiers: Chronic kidney disease stage: stage 3 (moderate) Qualified Codes: N18.3 - Chronic kidney disease, stage 3 (moderate) (9) DVT prophylaxis Status: Acute Clinical Quality Measures DVT/VTE Risk/Contraindication: Risk Factor Score Per Nursin RFS Level Per Nursing on Admit: 4+=Very High SELENE BAILEY DO Jun 08, 2020 10:34
--- NOTE | 2020-06-08 14:01 | Physical Therapy Evaluation ---
PT Evaluation-General Medical Diagnosis Admission Date Jun 05, 2020 at 03:44 Medical Diagnosis: sepsis/cellulitis Onset Date: Jun 05, 2020 Therapy Diagnosis Therapy Diagnosis: debility Height/Weight Height (Feet): 6 Height (Inches): 2.00 Weight (Pounds): 371 Weight (Ounces): 1.0 Precautions Precautions/Isolations: Fall Prevention, Standard Precautions, Pressure Ulcer Weight Bear Status Right Lower Extremity: Right Weight Bearing/Tolerated Left Lower Extremity: Left Weight Bearing/Tolerated Referral Physician: Marco Reason for Referral: Evaluation/Treatment Medical History Pertinent Medical History: CAD, DM, Heart Failure, HTN, [place], Neuropathy, Renal Insufficiency Additional Medical History morbid obesity Current History presented to ER with worsening debility and cellulitis bilateral LE Reviewed History: Yes Social History Home: Single Level Current Living Status: Spouse Entry Into Home: Ramp Prior Prior Level of Function SCALE: Activities may be completed with or without assistive devices. 2-Hwbdnquhuo-frgsdhc completes the activity by him/herself with no assistance from a helper. 5-Set-up or Clean-up Assistance-helper sets up or cleans up; patient completes activity. [place] assists only prior to or following the activity. 4-Supervision or Touching Assistance-helper provides verbal cues and/or touching/steadying and/or contact guard assistance as patient completes activity. Assistance may be provided throughout the activity or intermittently. 3-Partial/Moderate Assistance-helper does LESS THAN HALF the effort. [place] lifts, holds or supports trunk or limbs, but provides less than half the effort. 2-Substantial/Maximal Assistance-helper does MORE THAN HALF the effort. [place] lifts or holds trunk or limbs and provides more than half the effort. 0-Lttrsfgqk-pikdxz does ALL the effort. Patient does none of the effort to complete the activity. Or, the assistance of 2 or more helpers is required for the patient to complete the activity. If activity was not attempted, code reason: 7-Patient Refused. 9-Not Applicable-not attempted and the patient did not perform the activity before the current illness, exacerbation or injury. 10-Not Attempted due to Environmental Limitations-(lack of equipment, weather restraints, etc.). 88-Not Attempted due to Medical Conditions or Safety Concerns. Bed Mobility: 5 Transfers (B,C,W/C): 5 Gait: 5 Stairs: 9 Wheelchair Mobility: 5 Indoor Mobility (Ambulation): Independent Stairs: Not Applicalbe Prior Devices Use: Motorized scooter, Walker PT Evaluation-Current Subjective Patient agrees to PT. Objective Patient Orientation: Normal For Age Attachments: Oxygen ROM/Strength ROM Lower Extremities bilateral LE WFL Strength Lower Extremities 4/5 grossly bilateral LE Integumentary/Posture Integumentary refer to nursing notes Bowel Incontinence: No Bladder Incontinence: No Posture WFL Neuromuscular (Tone, Coordination, Reflexes) noted tremors bilateral UE Sensory Vision: Functional Hearing: Functional Transfers Roll Left to Right (QC): 4 Sit to Lying (QC): 4 Lying to Sitting/Side of Bed(Q: 4 Sit to Stand (QC): 4 Chair/Vxa-zi-Ewxij Xfer(QC): 4 Toilet Transfer (QC): 4 Gait Does the Patient Walk?: Yes Mode of Locomotion: Both Anticipated Mode of Locomotion: Both Walk 10 feet (QC): 4 Walk 50 ft with 2 Turns(QC): 4 Walk 150 ft (QC): 88 Gait Assistive Device: FWW Comments/Gait Description WBOS/functional gait sequence Wheelchair Training Does the Pt Use a Wheelchair?: Yes Balance Sitting Static: Normal Sitting Dynamic: Normal Standing Static: Normal Standing Dynamic: Normal Assessment/Needs 65 y.o. male, will be seen short term by skilled PT to address functional mobili ty to ensure safe return to home with spouse at maximum LOF. Rehab Potential: Fair PT Embossing Machine Tender Goals Embossing Machine Tender Goals PT Half-Way Goals Time Frame: Jun 20, 2020 Roll Left & Right (QC): 5 Sit to Lying (QC): 5 Lying-Sitting on Side/Bed(QC): 5 Sit to Stand (QC): 5 Chair/Axs-ij-Ajpdt Xfer(QC): 5 Toilet Transfer (QC): 5 Does the Patient Walk: Yes Walk 10 feet (QC): 5 Walk 50ft with 2 Turns (QC): 5 PT Plan Problem List Problem List: Activity Tolerance, Transfer, Bed Mobility Treatment/Plan Treatment Plan: Continue Plan of Care Treatment Plan: Bed Mobility, Education, Functional Activity Jonathan, Functional Strength, Gait, Safety, Therapeutic Exercise, Transfers Treatment Duration: Jun 20, 2020 Frequency: 6 times per week Estimated Hrs Per Day: .25 hour per day Patient and/or Family Agrees t: Yes Discharge Recommendations Therapy Discharge Recommendati: Home & Family Time/GCodes Time In: 1306 Time Out: 1318 Total Billed Treatment Time: 12 Total Billed Treatment 1 visit EVModC 12 min JOSE WALL PT Jun 08, 2020 14:01
[2020-06-08] MEDS: morphine INJ 4 MG/ML 1 ML (VIAL/SYRINGE) IV PRN (15:12)
[2020-06-08 15:24] VITALS: BP 132/65
--- NOTE | 2020-06-08 15:42 | NUR ---
"RD ASSESSMENT PMHx: CHF; DM; HTN; CKD; COPD; PT INTERACTION: Pt was awake and pleasant during nutrition assessment. Pt states current appetite is good. Note avg PO intake 63% x3d, per chart review. Pt states following a regular diet at home, and has no issues with chewing/swallowing food. Pt states no recent issues with nausea, vomiting, constipation, or diarrhea, and that his last BM was 2d ago. Pt states no recent wt changes. Note recent 59# wt loss x10mon, per chart review. While this is a lot of wt lost, it is not considered significant as it is 12% wt loss x10mon (18% would be considered significant wt loss of malnutrition guidelines). Pt states current DM management is good. Note unable to determine recent HbA1c, per chart review. Note presence of multiple bilateral lower extremity wounds. ABNORMAL NUTRITION-RELATED LAB VALUES LOW: HIGH: K 5.1; BUN 53; cr 2.36; glu 238 Est. kcal needs: 9043-8357 kcal | 25-30 kcal/kg IBW, based on IBW of 89.1 kg (196#) Est. Pro needs: 107-134 g Pro | 1.2-1.5 g Pro/kg IBW PES STATEMENT: Inadequate oral intake (NI-2.1) related to loss of appetite and constipation, as evidenced by pt interview, and avg PO intake 63% x3d. Inadequate protein intake (NI-5.6.1) related to increased protein needs as evidenced by presence of wounds (multiple bilateral lower extremity). INTERVENTION: Continue with current diet order of CHO 75g/m 0snack diet. Pt may benefit from more aggressive CHO restriction, if blood glucose levels remain elevated. Add Ensure HP (vary) to meals TID. Provides 160 kcal and 16 g Pro per serving, for perceived benefit to wound healing. Offered diet education on DM management, but pt declined at this time. Will attempt to offer again prior to discharge. Will continue to follow and reassess as pt needs, intake, and status change. Ximena FONSECA, MS RD LD [phone] cell"
--- NOTE | 2020-06-08 18:27 | Wound Care Assessment ---
Wound Care Assessment Date Seen by Provider: Jun 08, 2020 Time Seen by Provider: 16:45 Chief Complaint L foot and bilateral lower leg ulcers. HPI The patient is a 65 year old male with a deep L 5th MTH diabetic foot ulcer, Santana Grade 2, and bilateral calf partial thickness venous insufficiency ulcers, in a setting of obesity, poorly controlled diabetes, and sedentary life- style. Silver alginate dressings to foot ulcer, leave calf ulcers ARASH with chucks, to allow for drainage. Can follow-up as out-patient. Past Medical History: Admits Diabetes Type II Obesity. Recreational Drug Use: No Alcohol Use: Denies Use Review of Systems Pulmonary: No Dyspnea Cardiovascular: No: Chest Pain Exam Vital Signs Date Time Temp Pulse Resp B/P (MAP) Pulse Ox O2 Delivery O2 Flow Rate FiO2 06/08/20 15:55 90 Nasal Cannula 3.00 06/08/20 15:24 36.2 96 22 132/65 (87) Capillary Refill : Greater Than 3 SecondsGreater Than 3 Seconds General Appearance: no apparent distress Respiratory: no respiratory distress Extremities: other (Extensive bilateral partial thickness venous ulcers in a gaiter distribution.) Skin: other (L 5th MTH ulcer -- 1.1 x 1.2 x 0.3 cm, base 100% slough, mod. s.s. drainage.) Results Laboratory Tests 06/07/20 19:28: Glucometer 258H 06/08/20 06:08: Glucometer 199H 06/08/20 07:32: White Blood Count 9.2, Red Blood Count 4.90, Hemoglobin 11.8L, Hematocrit 43, Mean Corpuscular Volume 87, Mean Corpuscular Hemoglobin 24L, Mean Corpuscular Hemoglobin Concent 28L, Red Cell Distribution Width 16.0H, Platelet Count 214, Mean Platelet Volume 10.2, Immature Granulocyte % (Auto) 1, Neutrophils (%) (Auto) 75, Lymphocytes (%) (Auto) 10L, Monocytes (%) (Auto) 10, Eosinophils (%) (Auto) 3, Basophils (%) (Auto) 1, Neutrophils # (Auto) 6.9, Lymphocytes # (Auto) 1.0, Monocytes # (Auto) 0.9, Eosinophils # (Auto) 0.3, Basophils # (Auto) 0.1, Immature Granulocyte # (Auto) 0.1, Sodium Level 136, Potassium Level 5.1H, Chloride Level 101, Carbon Dioxide Level 21, Anion Gap 14, Blood Urea Nitrogen 53H, Creatinine 2.56H, Estimat Glomerular Filtration Rate 25, BUN/Creatinine Ratio 21, Glucose Level 238H, Calcium Level 8.9, Vancomycin Level Trough 18.5 06/08/20 09:17: Glucometer 257H 06/08/20 14:36: Glucometer 254H Microbiology 06/05/20 Blood Culture - Preliminary, Resulted No growth 06/05/20 Urine Culture - Final, Complete NO GROWTH 06/05/20 Influenza Types A,B Antigen (ANGEL) - Final, Complete Assessment/Plan/Dx 1. Diabetic foot ulcer, L 5th MTH, Santana Grade 2. 2. Bilateral lower leg venous ulcers, partial thickness. 3. Poorly controlled diabetes. 4. Morbid obesity. 5. Limited mobility. Plan: Silver alginate dressings to L foot wound, open to air for calf wounds, elevate, urged to get better control of blood glucose levels. Can follow-up as out-patient after discharge. AMARIS ENAMORADO MD Jun 08, 2020 18:27
--- NOTE | 2020-06-08 18:39 | NUR ---
PATIENT'S CALLED FOR UPDATE, UPDATE GIVEN. NO FURTHER QUESTIONS. APPRECIATIVE OF CARE.
[2020-06-08] MEDS: ASPIRIN E.C. 81 MG (ECOTRIN) TAB PO SCH (20:46)
[2020-06-08] MEDS: SIMvastatin 10 MG (ZOCOR) TAB PO SCH (20:46)
[2020-06-08] MEDS: SENNA W/DOCUSATE (SENOKOT S) TABLET PO SCH (20:47)
[2020-06-08] MEDS: polyethylene glycoL POWDER 17 GM (MIRALAX) PACK PO SCH (20:54)
[2020-06-08] MEDS: LACTULOSE SYRUP 10GM/15ML (ENULOSE) 30ML UDC PO SCH (20:54)
[2020-06-08 23:22] VITALS: BP 114/56
[2020-06-09] MEDS: LEVOTHYROXINE 50 MCG (LEVOTHROID) TAB PO SCH (02:15)
[2020-06-09] MEDS: CEFEPIME 1,000 MG/SWFI 10 ML IV PUSH IV SCH ×8 (02:15→20:55)
[2020-06-09] MEDS: RT-ALBUTEROL INHALER HFA (VENTOLIN HFA) 18 GM IH SCH ×4 (02:16→19:20)
[2020-06-09] MEDS: ENOXAPARIN 60 MG/0.6 ML (LOVENOX) SYR SC SCH ×2 (03:32→14:27)
[2020-06-09 05:52] LABS: BASOPHILS # (AUTO) 0.1 10^3/uL (0.0-0.1); BASOPHILS % (AUTO) 1 % (0-10); EOSINOPHILS # (AUTO) 0.2 10^3/uL (0.0-0.3); EOSINOPHILS % (AUTO) 2 % (0-10); HEMATOCRIT 40 % (40-54); HEMOGLOBIN 10.9 g/dL (13.3-17.7); LYMPHOCYTES # (AUTO) 1.3 10^3/uL (1.0-4.0); LYMPHOCYTES % (AUTO) 14 % (12-44); MEAN CORPUSCULAR HEMOGLOBIN 24 pg (25-34); MEAN CORPUSCULAR HGB CONC 27 g/dL (32-36); MEAN CORPUSCULAR VOLUME 89 fL (80-99); MEAN PLATELET VOLUME 10.5 fL (9.0-12.2); MONOCYTES # (AUTO) 1.2 10^3/uL (0.0-1.0); MONOCYTES % (AUTO) 14 % (0-12); NEUTROPHILS # (AUTO) 6.3 10^3/uL (1.8-7.8); NEUTROPHILS % (AUTO) 68 % (42-75); PLATELET COUNT 344 10^3/uL (130-400); WHITE BLOOD COUNT 9.2 10^3/uL (4.3-11.0)
--- NOTE | 2020-06-09 05:56 | Progress Note - Hospitalist ---
Subjective HPI/CC On Admission Date Seen by Provider: Jun 09, 2020 Time Seen by Provider: 10:00 Subjective/Events-last exam Pt refusing Metoprolol and Lasix since his kidney doctor discontinue it Dr. Geronimo will be consulted since he sees Dr. Ayoub on a regular basis Not an inpatient rehab candidate since he is back to baseline and ambulating around in the room Will require IV antibiotics and wound care has already seen him Review of Systems Musculoskeletal: leg pain Objective Exam Vital Signs Vital Signs Date Time Temp Pulse Resp B/P (MAP) Pulse Ox O2 Delivery O2 Flow Rate FiO2 06/10/20 03:19 96 Nasal Cannula 3.00 06/10/20 00:00 36.2 97 19 134/77 (96) Capillary Refill : Greater Than 3 SecondsGreater Than 3 Seconds General Appearance: No Apparent Distress, WD/WN, Chronically ill, Obese Respiratory: Chest Non Tender, Lungs Clear, Normal Breath Sounds, No Accessory Muscle Use, No Respiratory Distress Cardiovascular: Regular Rate, Rhythm, No Edema, No Gallop, No JVD, No Murmur, Normal Peripheral Pulses Extremity: Other (rash on legs improved) Neurologic/Psychiatric: Alert, Oriented x3, No Motor/Sensory Deficits, Normal Mood/Affect Results/Procedures Lab Laboratory Tests 06/09/20 05:43 Patient resulted labs reviewed. Assessment/Plan Assessment and Plan Assess & Plan/Chief Complaint Assessment: Sepsis Lower extremities cellulitis Venous stasis dermatitis chronic CKD DM Obesity Plan: IV abx Monitor creatinine Wound care 06/09/20: IV anx Wound care Cardiology consultation Diagnosis/Problems Diagnosis/Problems (1) Sepsis Status: Acute Qualifiers: Sepsis type: sepsis due to unspecified organism Sepsis acute organ dysfunction status: without acute organ dysfunction Qualified Codes: A41.9 - Sepsis, unspecified organism (2) Cellulitis Status: Acute Qualifiers: Site of cellulitis: extremity Site of cellulitis of extremity: lower extremity Laterality: unspecified laterality Qualified Codes: L03.119 - Cellulitis of unspecified part of limb (3) Debility Status: Acute (4) CHF (congestive heart failure) Status: Chronic Qualifiers: Heart failure type: systolic Heart failure chronicity: chronic Qualified Codes: I50.22 - Chronic systolic (congestive) heart failure (5) Supplemental oxygen dependent Status: Chronic (6) COPD (chronic obstructive pulmonary disease) Status: Chronic Qualifiers: COPD type: emphysema Emphysema type: panlobular Qualified Codes: J43.1 - Panlobular emphysema (7) Diabetes mellitus Status: Chronic Qualifiers: Diabetes mellitus type: type 2 Diabetes mellitus prison insulin use: with prison use Diabetes mellitus complication status: with hyperglycemia Qualified Codes: E11.65 - Type 2 diabetes mellitus with hyperglycemia; 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
[2020-06-09 06:04] LABS: POTASSIUM 4.9 MMOL/L (3.6-5.0)
[2020-06-09 06:05] LABS: CALCIUM 8.8 MG/DL (8.5-10.1)
[2020-06-09 06:06] LABS: TOTAL PROTEIN 8.1 GM/DL (6.4-8.2)
[2020-06-09 06:08] LABS: BILIRUBIN,TOTAL 0.7 MG/DL (0.1-1.0)
[2020-06-09 06:10] LABS: CREATININE SERUM 2.79 MG/DL (0.60-1.30)
[2020-06-09] MEDS ORDERED: POTASSIUM CL 10MEQ/50ML IVPB 50 ML IV SCH (06:30)
[2020-06-09] MEDS: inSUlin ASPART (NovoLOG) 1 UNIT/0.01 ML (CHARGE PER UNIT) SC SCH ×4 (06:47→20:55)
[2020-06-09 08:00] VITALS: BP 116/63
[2020-06-09] MEDS: FUROSEMIDE 40 MG (LASIX) TAB PO SCH ×2 (09:38→09:42)
[2020-06-09] MEDS: PANTOPRAZOLE 20 MG TABLET (PROTONIX) PO SCH (09:39)
[2020-06-09] MEDS: GABAPENTIN 100 MG (NEURONTIN) CAP PO SCH ×2 (09:39→20:56)
[2020-06-09] MEDS: meTOprolol SUCCINATE 100 MG (TOPROL XL) TAB PO SCH (09:39)
[2020-06-09] MEDS: CYANOCOBALAMIN 1,000 MCG (VITAMIN B-12) TABLET PO SCH (09:40)
[2020-06-09] MEDS: LACTULOSE SYRUP 10GM/15ML (ENULOSE) 30ML UDC PO SCH ×2 (09:40→20:55)
[2020-06-09] MEDS: SENNA W/DOCUSATE (SENOKOT S) TABLET PO SCH ×2 (09:40→20:57)
[2020-06-09] MEDS: polyethylene glycoL POWDER 17 GM (MIRALAX) PACK PO SCH ×2 (09:40→20:56)
[2020-06-09] MEDS: DOCUSATE SODIUM 100 MG (COLACE) CAP PO SCH ×2 (09:40→20:56)
--- NOTE | 2020-06-09 10:00 | NUR ---
Put in cardiology consult for Dr. Geronimo per Dr. Lr request at this time. Dr. Geronimo notified.
--- NOTE | 2020-06-09 10:33 | Consultation-Cardiology ---
HPI-Cardiology Cardiology Consultation Date of Consultation 06/09/20 Date of Admission Time Seen by Provider: 10:18 HPI Cardiology consult for cardiac management of patient with complex medical history. Patient is a 65yo male with multiple comorbidities that include obesity, CHF, oxygen dependent COPD, insulin dependent T2DM, HTN, Hyperlipidemia, hypothyroidism and CKD who was admitted from the ED on 06/05/2020 for sepsis secondary to bilateral lower extremity cellulitis. Patient has been managed by Dr. Smith, Dr. Lara and Dr. Dorado thus far. Dr. Smith consulted cardiology after patient told her that he has recently seen nephrology who told him to stop talking his lasix and metopropolol because of his kidney function. Per my discussing with the patient he says that he may have been mistaken about being told to stop the metoprolol and thinks he was told to only stop the Lasix. Patient is a poor historian. Patient follow with Dr. Ayoub for cardiac care. Home Medications & Allergies Allergies: Coded Allergies: fentanyl (Verified Allergy, Severe, 08/08/19) meperidine (Verified Allergy, Unknown, 02/12/17) Uncoded Allergies: MSG (Allergy, Severe, Anaphylaxis, 06/08/20) MSG FROM FOOD PRESERVATIVE iv contrast (Adverse Reaction, Intermediate, 07/10/17) Home Medication List Reviewed: Yes IHP-Wgsnub-Ahozrh Hx Patient Social History Alcohol Use: Denies Use Recreational Drug Use: No Smoking Status: Former Smoker Type Used: Cigarettes 2nd Hand Smoke Exposure: No Recent Foreign Travel: No Recent Infectious Disease Expo: No Recent Hopitalizations: No Immunizations Up To Date Tetanus Booster (TDap): Unknown Date of Pneumonia Vaccine: Mar 29, 2017 Date of Influenza Vaccine: Feb 25, 2020 Past Medical History Discussed below Family Medical History Significant Family History: Heart Disease, COPD, Diabetes, Hypertension Family History: 19 FATHER Diabetes mellitus Cardiovascular disease Myocardial infarction Hypertension Hypercholesterolemia 19 MOTHER Diabetes mellitus Cardiovascular disease Myocardial infarction Hypertension Hypercholesterolemia Review of Systems-General Review of Systems Constitutional: see HPI; No chills, No fever EENTM: see HPI; No nose congestion, No throat pain Respiratory: see HPI, cough, dyspnea on exertion; No hemoptysis; orthopnea; No phlegm, No short of breath, No stridor, No wheezing, No other Cardiovascular: see HPI; No chest pain; edema (bilateral Lower extremities); No palpitations Gastrointestinal: no symptoms reported, see HPI; No abdominal pain, No constipation, No diarrhea, No nausea, No vomiting Genitourinary: no symptoms reported, see HPI; No dysuria Musculoskeletal: see HPI, back pain (chronic ) Skin: no symptoms reported, other (chronic venous stasis changes and ulceration on the feet) Psychiatric/Neurological: No Symptoms Reported, See HPI Reviewed Test Results Reviewed Test Results Lab Laboratory Tests Test 06/08/20 14:36 06/08/20 19:43 06/09/20 00:20 06/09/20 05:27 Range/Units Glucometer 254 H 265 H 230 H 209 H 70-110 MG/DL Test 06/09/20 05:43 06/09/20 09:19 Range/Units White Blood Count 9.2 4.3-11.0 10^3/uL Red Blood Count 4.47 4.30-5.52 10^6/uL Hemoglobin 10.9 L 13.3-17.7 g/dL Hematocrit 40 40-54 % Mean Corpuscular Volume 89 80-99 fL Mean Corpuscular Hemoglobin 24 L 25-34 pg Mean Corpuscular Hemoglobin Concent 27 L 32-36 g/dL Red Cell Distribution Width 16.1 H 10.0-14.5 % Platelet Count 344 130-400 10^3/uL Mean Platelet Volume 10.5 9.0-12.2 fL Immature Granulocyte % (Auto) 1 % Neutrophils (%) (Auto) 68 42-75 % Lymphocytes (%) (Auto) 14 12-44 % Monocytes (%) (Auto) 14 H 0-12 % Eosinophils (%) (Auto) 2 0-10 % Basophils (%) (Auto) 1 0-10 % Neutrophils # (Auto) 6.3 1.8-7.8 10^3/uL Lymphocytes # (Auto) 1.3 1.0-4.0 10^3/uL Monocytes # (Auto) 1.2 H 0.0-1.0 10^3/uL Eosinophils # (Auto) 0.2 0.0-0.3 10^3/uL Basophils # (Auto) 0.1 0.0-0.1 10^3/uL Immature Granulocyte # (Auto) 0.1 0.0-0.1 10^3/uL Sodium Level 132 L 135-145 MMOL/L Potassium Level 4.9 3.6-5.0 MMOL/L Chloride Level 100 98-107 MMOL/L Carbon Dioxide Level 23 21-32 MMOL/L Anion Gap 9 5-14 MMOL/L Blood Urea Nitrogen 59 H 7-18 MG/DL Creatinine 2.79 H 0.60-1.30 MG/DL Estimat Glomerular Filtration Rate 23 BUN/Creatinine Ratio 21 Glucose Level 218 H 70-105 MG/DL Calcium Level 8.8 8.5-10.1 MG/DL Corrected Calcium 9.6 8.5-10.1 MG/DL Total Bilirubin 0.7 0.1-1.0 MG/DL Aspartate Amino Transf (AST/SGOT) 16 5-34 U/L Alanine Aminotransferase (ALT/SGPT) 10 0-55 U/L Alkaline Phosphatase 263 H 40-136 U/L Total Protein 8.1 6.4-8.2 GM/DL Albumin 3.0 L 3.2-4.5 GM/DL Glucometer 230 H 70-110 MG/DL Radiology CXR: IMPRESSION: 1. Significantly technically limited exam. 2. Potential interstitial and/or alveolar opacities. Considerations would include interstitial edema and atypical infection. 3. Cardiomegaly. 4. Considering the limitations of the exam, further imaging should be considered. Physical Exam Physical Exam Vital Signs Vital Signs - First Documented 06/05/20 06/05/20 00:43 05:02 Temp 37.9 Pulse 120 Resp 20 B/P (MAP) 111/62 (78) Pulse Ox 97 O2 Delivery Nasal Cannula O2 Flow Rate 4.00 Capillary Refill : Greater Than 3 SecondsGreater Than 3 Seconds Height, Weight, BMI Height: 6'2.00" Weight: 371lbs. 1.0oz. 168.305518kv; 57.64 BMI Method:Stated General Appearance: No Apparent Distress, WD/WN, Chronically ill, Obese HEENT: PERRL/EOMI, Normal ENT Inspection Respiratory: Chest Non Tender, Lungs Clear, Normal Breath Sounds, No Accessory Muscle Use, No Respiratory Distress Cardiovascular: Regular Rate, Rhythm, No Gallop, No JVD, Other (Heart sound where distant due to patient's body habitus, making is difficult to ausculate any murmurs) Gastrointestinal: Soft Extremity: Pedal Edema, Swelling, Other (Legs are erythematous and hot to the touch bilaterally with weeping of purulent drainage. There is skin breakdown and foul odor. There is an ulceration on the lateral left foot.) Neurologic/Psychiatric: Alert, Oriented x3, No Motor/Sensory Deficits, Normal Mood/Affect Skin: Other (rash of legs with severe venous stasis dermatitis with erythema) A/P-Cardiology Admission Diagnosis sepsis Peripheral arterial disease Chronic venostasis changes Congestive heart failure Assessment/Plan Sepsis from bilateral LE cellulitis - managed by medicine team Chronic venous stasis ulcers on bilateral lower extremities with foot ulcer over L 5th metatarsal * Appreciate Dr. Dorado's inputs * Recommend wrapping legs to help improve peripheral edema * Patient needs to be scheduled for outpatient ROSANNA with PVR and Toe pressure , it can be done as an outpatient with Dr. Ayoub's office * Will continue to monitor * Acute on chronic systolic/diastolic, nonishchemic CHF exacerbation - continue ASA and metoprolol. continue with cautious diuresis and monitor renal function closely * Pre Dr. Ayoub's note from 08/08/2019 - Echo of 10/29/18: LVEF 30-35%, AoV scl w/o stenoses, PASP 25 mmHg. Most recent echo of Mar 29, 2019 showed LVEF 45-50% with grade 1 diastolic dysfunction - Not a suitable candidate for CYRUS/ARB d/t documented hyperkalemia on these agents - MPI on 02/14/17: LVEF 30%, mod cardiomegaly, no distinct evidence of ischemia or infarction CKD - worse today. BUN/Cr is 59/2.79 with a GFR of 23. monitor renal function closely while on gentle diuresis - sees Dr. 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 Hypothyroidism - management by PCP/medicine team., will continue to monitor * Check TSH today (06/09) Hypertension- currently normotension with current regiment, will continue to monitor. 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 Geronimo, I have seen and evaluated the patient with a medical student, reviewed the note and corrected to note. I perform physical examination and participate in the interview and discussed the management plan in detail prior to prescribing this note. Agree with the content of this note Clinical Quality Measures DVT/VTE Risk/Contraindication: Risk Factor Score Per Nursin RFS Level Per Nursing on Admit: 4+=Very High RONDA CALERO,MED STUDENT Jun 09, 2020 10:33 YVETTE GERONIMO MD Jun 09, 2020 13:21
--- NOTE | 2020-06-09 11:48 | Physical Therapy Daily Note ---
PT Daily Note-Current Subjective Patient agrees to PT. No c/o. Mental Status Patient Orientation: Normal For Age Attachments: Oxygen (3L) Transfers SCALE: Activities may be completed with or without assistive devices. 5-Bipoqlgyoq-fijeztc completes the activity by him/herself with no assistance from a helper. 5-Set-up or Clean-up Assistance-helper sets up or cleans up; patient completes activity. [place] assists only prior to or following the activity. 4-Supervision or Touching Assistance-helper provides verbal cues and/or touching/steadying and/or contact guard assistance as patient completes activity. Assistance may be provided throughout the activity or intermittently. 3-Partial/Moderate Assistance-helper does LESS THAN HALF the effort. [place] lif ts, holds or supports trunk or limbs, but provides less than half the effort. 2-Substantial/Maximal Assistance-helper does MORE THAN HALF the effort. [place] lifts or holds trunk or limbs and provides more than half the effort. 3-Kfbbnoqhv-taeyxl does ALL the effort. Patient does none of the effort to complete the activity. Or, the assistance of 2 or more helpers is required for the patient to complete the activity. If activity was not attempted, code reason: 7-Patient Refused. 9-Not Applicable-not attempted and the patient did not perform the activity before the current illness, exacerbation or injury. 10-Not Attempted due to Environmental Limitations-(lack of equipment, weather restraints, etc.). 88-Not Attempted due to Medical Conditions or Safety Concerns. Lying to Sitting/Side of Bed(Q: 5 Sit to Stand (QC): 4 Chair/Cig-rv-Jcsjc Xfer(QC): 4 Weight Bearing Right Lower Extremity: Right Weight Bearing/Tolerated Left Lower Extremity: Left Weight Bearing/Tolerated Gait Training Does the Patient Walk?: Yes Distance: 50' Walk 10 feet (QC): 4 Walk 50 ft with 2 Turns(QC): 4 Gait Assistive Device: FWW WBOS/functional gait sequence/fatigues with minimal activity. Exercises Seated Therapy Exercises: Ankle pumps, Long arc quads, Shoulder Abd Seated Reps: 15 Assessment Patient tolerated treatment well and is up in recliner with needs met. PT to increase activity as tolerated by patient. PT Fish House Worker Goals Fish House Worker Goals PT Fish House Worker Goals Time Frame: Jun 20, 2020 Roll Left & Right (QC): 5 Sit to Lying (QC): 5 Lying-Sitting on Side/Bed(QC): 5 Sit to Stand (QC): 5 Chair/Rxe-xa-Pwgsr Xfer(QC): 5 Toilet Transfer (QC): 5 Does the Patient Walk: Yes Walk 10 feet (QC): 5 Walk 50ft with 2 Turns (QC): 5 PT Plan Treatment/Plan Treatment Plan: Continue Plan of Care Treatment Plan: Bed Mobility, Education, Functional Activity Jonathan, Functional Strength, Gait, Safety, Therapeutic Exercise, Transfers Treatment Duration: Jun 20, 2020 Frequency: 6 times per week Estimated Hrs Per Day: .25 hour per day Patient and/or Family Agrees t: Yes Time/GCodes Time In: 1110 Time Out: 1120 Total Billed Treatment Time: 10 Total Billed Treatment 1 visit FA 10 min JOSE WALL PT Jun 09, 2020 11:48
[2020-06-09] MEDS: morphine INJ 4 MG/ML 1 ML (VIAL/SYRINGE) IV PRN ×2 (15:27→22:56)
[2020-06-09 16:00] VITALS: BP 128/72
[2020-06-09] MEDS: SIMvastatin 10 MG (ZOCOR) TAB PO SCH (20:56)
[2020-06-09] MEDS: ASPIRIN E.C. 81 MG (ECOTRIN) TAB PO SCH (20:56)
--- NOTE | 2020-06-09 21:10 | NUR ---
This nurse was exiting another residents room when alerted by a PCT that this pt had fallen, upon entering pt room, noted Tee, survey workers supervisor, along with MIN Balderrama, Bela, RN, Christy and Mikayla digital solutions architect in pt room surrounding pt noted to be on his back on the floor with body parallel to his bed, with feet even with head of bed. Spun pt to correct position, and then rolled onto rachel lift sheet and used rachel lift to get pt back into bed. Notified Dr. Smith of fall, she asked this nurse to contact Dr. Salgado who is on for trauma. Dr. Salgado ordered a stat pelvis and lower spine x ray as well as hourly neuro checks. proof technician helper was unable to obtain xrays due to pt bariatric size. Notified Dr. Salgado, he asked that I alert Dr. Smith for further orders. This nurse updated Dr. Smith and she stated "ok thanks."
[2020-06-09 21:35] VITALS: BP 138/77
[2020-06-10] VITALS (10 sets, daily range): BP systolic 110–144; BP diastolic 69–86
[2020-06-10] MEDS: morphine INJ 4 MG/ML 1 ML (VIAL/SYRINGE) IV PRN ×2 (01:00→05:27)
[2020-06-10] MEDS: LEVOTHYROXINE 50 MCG (LEVOTHROID) TAB PO SCH (02:29)
[2020-06-10] MEDS: CEFEPIME 1,000 MG/SWFI 10 ML IV PUSH IV SCH ×2 (02:30)
[2020-06-10] MEDS: RT-ALBUTEROL INHALER HFA (VENTOLIN HFA) 18 GM IH PRN (03:19)
[2020-06-10] MEDS: ENOXAPARIN 60 MG/0.6 ML (LOVENOX) SYR SC SCH ×2 (04:07→15:35)
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
[2020-06-10 06:13] LABS: BASOPHILS # (AUTO) 0.1 10^3/uL (0.0-0.1); BASOPHILS % (AUTO) 1 % (0-10); EOSINOPHILS # (AUTO) 0.2 10^3/uL (0.0-0.3); EOSINOPHILS % (AUTO) 1 % (0-10); HEMATOCRIT 40 % (40-54); HEMOGLOBIN 10.8 g/dL (13.3-17.7); LYMPHOCYTES # (AUTO) 1.1 10^3/uL (1.0-4.0); LYMPHOCYTES % (AUTO) 9 % (12-44); MEAN CORPUSCULAR HEMOGLOBIN 24 pg (25-34); MEAN CORPUSCULAR HGB CONC 27 g/dL (32-36); MEAN CORPUSCULAR VOLUME 88 fL (80-99); MEAN PLATELET VOLUME 10.5 fL (9.0-12.2); MONOCYTES # (AUTO) 1.2 10^3/uL (0.0-1.0); MONOCYTES % (AUTO) 10 % (0-12); NEUTROPHILS # (AUTO) 9.3 10^3/uL (1.8-7.8); NEUTROPHILS % (AUTO) 77 % (42-75); PLATELET COUNT 332 10^3/uL (130-400)
[2020-06-10 06:26] LABS: ALBUMIN 3.1 GM/DL (3.2-4.5); POTASSIUM 5.2 MMOL/L (3.6-5.0)
[2020-06-10 06:27] LABS: CALCIUM 8.9 MG/DL (8.5-10.1)
[2020-06-10 06:29] LABS: TOTAL PROTEIN 8.5 GM/DL (6.4-8.2)
[2020-06-10 06:31] LABS: BILIRUBIN,TOTAL 0.7 MG/DL (0.1-1.0)
[2020-06-10 06:32] LABS: CREATININE SERUM 2.72 MG/DL (0.60-1.30)
[2020-06-10] MEDS: inSUlin ASPART (NovoLOG) 1 UNIT/0.01 ML (CHARGE PER UNIT) SC SCH ×3 (07:37→18:17)
[2020-06-10] MEDS: PANTOPRAZOLE 20 MG TABLET (PROTONIX) PO SCH (08:17)
[2020-06-10] MEDS: SENNA W/DOCUSATE (SENOKOT S) TABLET PO SCH ×2 (08:17→20:28)
[2020-06-10] MEDS: GABAPENTIN 100 MG (NEURONTIN) CAP PO SCH ×2 (08:18→20:30)
[2020-06-10] MEDS: CYANOCOBALAMIN 1,000 MCG (VITAMIN B-12) TABLET PO SCH (08:18)
[2020-06-10] MEDS: DOCUSATE SODIUM 100 MG (COLACE) CAP PO SCH ×2 (08:18→20:28)
--- NOTE | 2020-06-10 08:30 | NUR ---
Notified Dr. Smith that the patient has a significant decrease in LOC and barely responsive. Dr. Smith requested a head CT and ABG
[2020-06-10] MEDS: LACTULOSE SYRUP 10GM/15ML (ENULOSE) 30ML UDC PO SCH ×2 (08:34→20:30)
[2020-06-10] MEDS: FUROSEMIDE 40 MG (LASIX) TAB PO SCH (08:35)
[2020-06-10] MEDS: polyethylene glycoL POWDER 17 GM (MIRALAX) PACK PO SCH ×2 (08:35→20:30)
[2020-06-10] MEDS: meTOprolol SUCCINATE 100 MG (TOPROL XL) TAB PO SCH (08:35)
[2020-06-10] MEDS: RT-ALBUTEROL INHALER HFA (VENTOLIN HFA) 18 GM IH SCH ×3 (08:49→19:38)
--- NOTE | 2020-06-10 09:14 | Progress Note - Hospitalist ---
Subjective HPI/CC On Admission Date Seen by Provider: Jun 10, 2020 Time Seen by Provider: 09:00 Subjective/Events-last exam Pt had an eventful night with a fall landing on his abdomen causing a consult for trauma surgery who ordered CT scan but due to the fact he is 475lbs, we are unable to perform that study No report of hitting his head He does have a hx of morbid obesity with obesity hypo ventilation syndrome assumed He has altered mental status today with hypercapnia and respiratory acidosis so he was moved to the ICU and Dr. Pang was updated He very well may need intubation but he was placed on BiPAP I did update his who was very tearful but understood the need for transferring up to the ICU Review of Systems Neurological: Confusion Focused Exam Lactate Level 06/10/20 14:14: Lactic Acid Level 1.10 Objective Exam Vital Signs Vital Signs Date Time Temp Pulse Resp B/P (MAP) Pulse Ox O2 Delivery O2 Flow Rate FiO2 06/11/20 05:00 94 25 136/83 (100) 95 Mechanical Ventilator 30.00 06/11/20 03:23 21 06/10/20 20:03 35.8 Capillary Refill : Greater Than 3 SecondsLess Than 3 Seconds General Appearance: No Apparent Distress, WD/WN, Chronically ill, Obese Respiratory: Lungs Clear Cardiovascular: Regular Rate, Rhythm Neurologic/Psychiatric: Disoriented Results/Procedures Lab Laboratory Tests 06/11/20 02:55 Patient resulted labs reviewed. Assessment/Plan Assessment and Plan Assess & Plan/Chief Complaint Assessment: Sepsis Lower extremities cellulitis Venous stasis dermatitis chronic CKD DM Obesity Plan: IV abx Monitor creatinine Wound care 06/09/20: IV anx Wound care Cardiology consultation 06/10/20: Tx to ICU APpreciate Dr Pang Patient weighs too much for CT scan table Diagnosis/Problems Diagnosis/Problems (1) Sepsis Status: Acute Qualifiers: Sepsis type: sepsis due to unspecified organism Sepsis acute organ dysfunction status: without acute organ dysfunction Qualified Codes: A41.9 - Sepsis, unspecified organism (2) Cellulitis Status: Acute Qualifiers: Site of cellulitis: extremity Site of cellulitis of extremity: lower extremity Laterality: unspecified laterality Qualified Codes: L03.119 - Cellulitis of unspecified part of limb (3) Debility Status: Acute (4) CHF (congestive heart failure) Status: Chronic Qualifiers: Heart failure type: systolic Heart failure chronicity: chronic Qualified Codes: I50.22 - Chronic systolic (congestive) heart failure (5) Supplemental oxygen dependent Status: Chronic (6) COPD (chronic obstructive pulmonary disease) Status: Chronic Qualifiers: COPD type: emphysema Emphysema type: panlobular Qualified Codes: J43.1 - Panlobular emphysema (7) Diabetes mellitus Status: Chronic Qualifiers: Diabetes mellitus type: type 2 Diabetes mellitus chcf insulin use: with chcf use Diabetes mellitus complication status: with hyperglycemia Qualified Codes: E11.65 - Type 2 diabetes mellitus with hyperglycemia; 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
[2020-06-10] MEDS ORDERED: HYDROmorphone 2 MG/ML VIAL (DILAUDID) IVP PRN (09:15)
--- NOTE | 2020-06-10 09:55 | NUR ---
Spoke with CT whom stated the are unable to perform a head CT on this patient because he is 10lbs over the weight limit for their machine.
--- NOTE | 2020-06-10 10:30 | NUR ---
Informed Dr. Smith that if we are unable to perform a CT here the patient may need to be transferred to a location that can be done considering the patient LOC at this time. Notified her of critical pH 7.20 at this time
[2020-06-10 10:40] LABS: ABG BASE EXCESS -2.5 MMOL/L (-2.5-2.5); ABG OXYGEN SATURATION 96 % (94-100); ABG PCO2 65 MMHG (35-45); ABG PO2 82 MMHG (79-93); ABG TCO2 26.9 MMOL/L (21.0-31.0)
[2020-06-10 10:41] LABS: ALLENS TEST YES-POS; INSPIRED O2 2 L; VENTILATOR NO
--- NOTE | 2020-06-10 11:42 | Cardiology Progress Note ---
Subjective Date Seen by Provider: Jun 10, 2020 Time Seen by Provider: 11:36 Subjective/Events-last exam Patient is 65yo M with a hx of morbid obesity, COPD, RORY, CHF, insulin dependent T2DM, chronic venous stasis of lower extremities here on hospital day 6 for treatment of bilateral venous stasis ulcers and ulcer along his L 5th metatarsal. Today, patient did not wake up when I went to visit him on 2 separate occations this morning. Talked with Dr. Smith who told me that she is morning patient to the ICU because AMS from hypercapnic retention and respiratory acidosis. No ROS was preformed Patient is on BiPAP, lethargic, opening his eyes, not following commands Review of Systems General: Other (unable to provide review of systems) Objective-Cardiology Exam Last Set of Vital Signs Vital Signs 06/10/20 06/10/20 06/10/20 08:00 08:49 10:53 Temp 35.7 Pulse 95 Resp 28 B/P (MAP) 110/78 (89) Pulse Ox 97 O2 Delivery Nasal Cannula O2 Flow Rate 40.00 Capillary Refill : Greater Than 3 SecondsLess Than 3 Seconds I&O Intake and Output 06/10/20 00:00 Intake Total 1800 ml Output Total 700 ml Balance 1100 ml Intake Oral 1800 ml Output Urine Total 700 ml # Voids 3 # Bowel Movements 1 General: Alert, Moderate Distress, Other (Somulent and did not wake up voice or touch. ) HEENT: Atraumatic, PERRLA Neck: Supple, No JVD Lungs: Other (bilateral rhonchi on BiPAP) Heart: Regular Rate, Normal S1, Normal S2, No Murmurs Abdomen: Other (obese ) Extremities: No Clubbing, No Cyanosis, Other (Legs are edematous with rubor and calor present to the knees. ) Skin: No Breakdown, Other (Skin breakdown on lower legs circumfrentially due to swelling and infection with seaping nature to the wound.) Neuro: Normal Speech (no gross go out for dinner) Psych/Mental Status: Mental Status NL ( UN your ), Mood NL, Other (Not appreciated because patient was somulent) Results Lab Laboratory Tests 06/10/20 05:20 A/P-Cardiology Admission Diagnosis sepsis Peripheral arterial disease Chronic venostasis changes Congestive heart failure Assessment/Plan Acute respiratory failure, Hypercapnic respiratory failure w/ AMS - managed by Dr. Smith and Dr. Pang * Per discussion with Dr. Smith, patient is being moved to the ICU and will be evaluated by Dr. Pang. Patient may require ventilatory support. Sepsis from bilateral LE cellulitis - managed by medicine team Hyperkalemia, electrolyte imbalance, being corrected. Continue to monitor Chronic venous stasis ulcers on bilateral lower extremities with foot ulcer over L 5th metatarsal * Appreciate Dr. Dorado's inputs * Recommend wrapping legs to help improve peripheral edema * Patient needs to be scheduled for outpatient ROSANNA with PVR and Toe pressure , it can be done as an outpatient with Dr. Ayoub's office * Will continue to monitor Acute on chronic systolic/diastolic, nonishchemic CHF exacerbation - continue ASA and metoprolol. continue with cautious diuresis and monitor renal function closely - Echo of 10/29/18: LVEF 30-35%, AoV scl w/o stenoses, PASP 25 mmHg. Most recent echo of Mar 29, 2019 showed LVEF 45-50% with grade 1 diastolic dysfunction - Not a suitable candidate for CYRUS/ARB d/t documented hyperkalemia on these agents - MPI on 02/14/17: LVEF 30%, mod cardiomegaly, no distinct evidence of ischemia or infarction Acute renal failure, history of CKD - worse today. BUN/Cr is 63/2.72 with a GFR of 23, continue to monitor - sees Dr. 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 with supplemental oxygen Former smoker but quit smoking in the 1980s Clinical Quality Measures DVT/VTE Risk/Contraindication: Risk Factor Score Per Nursin RFS Level Per Nursing on Admit: 4+=Very High Supervisory-Addendum Brief Supervisory Addendum Participated in pt care: history, MDM, physical Personally performed: exam, history, MDM Care discussed with: Medical Student Results interpretation: Verified all documentation Notes: Patient was seen and evaluated, somnolent, BiPAP Being transferred to intensive care unit for close monitoring and possible intubation Significant deterioration with hypercapnic respiratory failure Electrolyte imbalance with renal failure and chronic venous stasis ulcers Receiving antibiotics. Continue with diuretics and monitor tolerance and response Monitor H&H RONDA CALERO,MED STUDENT Jun 10, 2020 11:42 YVETTE DORADO MD Jun 10, 2020 13:34
[2020-06-10 12:37] LABS: ABG BASE EXCESS -1.6 MMOL/L (-2.5-2.5); ABG OXYGEN SATURATION 97 % (94-100); ABG PCO2 62 MMHG (35-45); ABG PO2 122 MMHG (79-93); ABG TCO2 27.2 MMOL/L (21.0-31.0)
[2020-06-10 12:39] LABS: ABG PH 7.23 (7.37-7.43); ALLENS TEST YES-POS; INSPIRED O2 40%; VENTILATOR YES
--- NOTE | 2020-06-10 13:00 | NUR ---
Upon entering room patient is uncooperative and anxious attempting to pull at BiPapl. Attempt to reorient. Oxygen saturation 65% upon assessment. Contacted RT whom instructed me to increase BiPap to 60% at this time. Oxygen saturation increases to 88%. Pulse drops t0 35 and back to 103. Notified Dr. Smith of patients status at this time. Waiting for ICU6 to be ready for patient transfer will continue to closely monitor.
--- NOTE | 2020-06-10 13:08 | Pulmonary Consultation ---
History of Present Illness History of Present Illness Date Seen by Provider: Jun 10, 2020 Time Seen by Provider: 12:59 Date of Admission History of Present Illness 65yo poor historian with morbid obesity, oxygen dependent COPD, CHF and CKD who was admitted from the ED on 06/05/2020 for sepsis secondary to bilateral lower extremity cellulitis. Dr. Smith is consulting me secondary to worsening respiratory failure. ABG shows acute respiratory failure. Pt is being transferred to ICU secondary to respiratory failure. Allergies and Home Medications Allergies Coded Allergies: fentanyl (Verified Allergy, Severe, 08/08/19) meperidine (Verified Allergy, Unknown, 02/12/17) Uncoded Allergies: MSG (Allergy, Severe, Anaphylaxis, 06/08/20) MSG FROM FOOD PRESERVATIVE iv contrast (Adverse Reaction, Intermediate, 07/10/17) Home Medications Albuterol Sulfate 1 Puff Puff, 2 PUFF IH Q4H PRN for SHORTNESS OF BREATH, (Reported) 1 PUFF = 90 MCG Aspirin 81 Mg Tablet.dr, 81 MG PO HS, (Reported) Cyanocobalamin (Vitamin B-12) 1,000 Mcg Tablet, 1,000 MCG PO DAILY, (Reported) Cyclobenzaprine HCl 10 Mg Tablet, 10 MG PO BID PRN for MUSCLE SPASMS, (Reported) Furosemide 40 Mg Tablet, 40 MG PO DAILY, (Reported) Gabapentin 100 Mg Capsule, 100 MG PO DAILY, (Reported) Gabapentin 100 Mg Capsule, 300 MG PO HS, (Reported) TAKES 3 (100MG) CAPSULES Insulin Aspart 300 Units/3 Ml Solution, 36 UNITS SQ TIDAC, (Reported) Insulin Glargine,Hum.rec.anlog 100 Unit/1 Ml Vial, 80 UNIT SQ HS, (Reported) Levothyroxine Sodium 50 Mcg Capsule, 50 MCG PO 0200, (Reported) Metoprolol Succinate 200 Mg Tab.er.24h, 100 MG PO DAILY, (Reported) TAKES OF A 200MG TAB Omeprazole 20 Mg Capsule.dr, 20 MG PO DAILY, (Reported) Pravastatin Sodium 40 Mg Tablet, 20 MG PO HS, (Reported) TAKES 1/2 (40MG) TABLET Topiramate 25 Mg Tablet, 12.5-25 MG PO HS, (Reported) Past Ewkcwwa-Psnoue-Nbfjto Hx Past Med/Social Hx: Reviewed Nursing Past Med/Soc Hx Patient Social History Alcohol Use: Denies Use Recreational Drug Use: No Smoking Status: Former Smoker Type Used: Cigarettes Former Smoker, Quit: Feb 13, 1987 2nd Hand Smoke Exposure: No Recent Foreign Travel: No Contact w/Someone Who Travel: No Recent Infectious Disease Expo: No Recent Hopitalizations: No Physical Abuse: No Sexual Abuse: No Mistreated: No Fear: No Immunizations Up To Date Tetanus Booster (TDap): Unknown Date of Pneumonia Vaccine: Mar 29, 2017 Date of Influenza Vaccine: Feb 25, 2020 Seasonal Allergies Seasonal Allergies: No Past Medical History Surgeries: Yes (KNEE SURGERY, LEFT SHOULDER SURGERY, HERNIA REPAIR, ) Abdominal, Cardiac, Gallbladder, Orthopedic Respiratory: Yes (uses CPAP and oxygen at night.) Sleep Apnea, COPD Currently Using CPAP: Yes Currently Using BIPAP: No Cardiac: Yes (CHF) Cardiomyopathy, Chronic Edema/Swelling, Coronary Artery Disease, Heart Attack, High Cholesterol, Hypertension Neurological: Yes (TIA'S X 4; STROKE X 1) Neuropathy, Stroke, TIA Sexually Transmitted Disease: No HIV/AIDS: No Genitourinary: Yes Kidney Stones, Renal Failure Gastrointestinal: Yes Gastroesophageal Reflux Musculoskeletal: Yes (HIP FX; 2 TORN ROTATOR CUFFS; RIGHT HIP AND LOWER BACK PAIN ) Degenerate Disk Disease, Arthritis, Chronic Back Pain, Fractures Endocrine: Yes (MORBID OBESITY--WEIGHT 460#, PER PT ON 06/04/19) Hypothyroidsim, Diabetes, Non-Insulin dep HEENT: Yes Cataract Loss of Vision: Bilateral Hearing Impairment: Hard of Hearing, Bilateral Hearing Aide Cancer: No Psychosocial: No Integumentary: Yes (LEG CELLULITIS; ABDOMINAL WALL CELLULITIS/PANNICULITIS) Recent Skin Changes Blood Disorders: No Adverse Reaction/Blood Tranf: No Family Medical History Cardiovascular disease 19 FATHER 19 MOTHER Diabetes mellitus 19 FATHER 19 MOTHER Hypercholesterolemia 19 FATHER 19 MOTHER Hypertension 19 FATHER 19 MOTHER Myocardial infarction 19 FATHER 19 MOTHER Heart Disease, COPD, Diabetes, Hypertension Review of Systems Time Seen by Provider: 13:08 Sepsis Event Evaluation Height, Weight, BMI Height: 6'2.00" Weight: 371lbs. 1.0oz. 168.066857ok; 57.64 BMI Method:Stated Exam Exam Vital Signs Date Time Temp Pulse Resp B/P (MAP) Pulse Ox O2 Delivery O2 Flow Rate FiO2 06/10/20 10:53 28 40.00 06/10/20 08:49 97 Nasal Cannula 3.00 06/10/20 08:00 35.7 95 18 110/78 (89) 98 Nasal Cannula 3.00 06/10/20 03:19 96 Nasal Cannula 3.00 06/10/20 00:00 36.2 97 19 134/77 (96) 95 Nasal Cannula 3.00 06/09/20 21:35 36.7 98 20 138/77 (97) 94 Nasal Cannula 3.00 06/09/20 20:45 97 Nasal Cannula 3.00 06/09/20 19:21 94 Nasal Cannula 3.00 06/09/20 16:00 35.5 106 16 128/72 (90) 93 Nasal Cannula 06/09/20 15:32 93 Nasal Cannula 3.00 l I & O 06/10/20 06:59 Intake Total 1750 ml Output Total 300 ml Balance 1450 ml Height & Weight Height: 6'2.00" Weight: 371lbs. 1.0oz. 168.612076dh; 57.64 BMI Method:Stated General Appearance: WD/WN, Anxious, Chronically ill, Moderate Distress, Obese, Other (currenlty on BiPAP) HEENT: PERRL/EOMI, Normal ENT Inspection Respiratory: Chest Non Tender, Accessory Muscle Use, Crackles, Decreased Breath Sounds, Respiratory Distress Cardiovascular: Regular Rate, Rhythm, No Murmur, Normal Peripheral Pulses Capillary Refill: Less Than 3 Seconds Peripheral Pulses: 1+ Dorsalis Pedis (R), 1+ Left Dors-Pedis (L) Gastrointestinal: normal bowel sounds, non tender, soft Extremity: Pedal Edema, Other (rash on legs improved) Neurologic/Psychiatric: Alert, Oriented x3, No Motor/Sensory Deficits, Normal Mood/Affect Skin: Warm/Dry, Erythema (bilateral LE ), Other (rash of legs with severe venous stasis dermatitis with erythema) Lymphatic: No Adenopathy Results Lab Laboratory Tests 06/09/20 05:43 06/10/20 05:20 Assessment/Plan Assessment/Plan Acute respiratory failure -Pt is failing BiPAP -Will proceed with intubation Sepsis with worsening leukocytosis -Arceo cultures -Start Zosyn and zyvox Morbid obesity with OHS Acute worsening renal failure -Change IVF to LR at 100ml/hr CHF hx Peripheral arterial disease Chronic venostasis changes Congestive heart failure MARIA LEENA GODINEZ DO Jun 10, 2020 13:08
[2020-06-10] MEDS ORDERED: SODIUM BICARB 8.4% 50 MEQ/50 ML VIAL IV NR (13:15)
[2020-06-10] MEDS ORDERED: LACTATED RINGERS 1,000 ML IV SCH (13:15)
[2020-06-10] MEDS ORDERED: PROPOFOL DRIP (ICU) 100 ML IV ONE (13:17)
[2020-06-10] MEDS ORDERED: proPOfol 200 MG/20 ML (DIPRIVAN) VIAL IV ONE (13:18)
[2020-06-10] MEDS ORDERED: fentaNYL DRIP PRE-MIX 250 ML IV ONE (13:41)
[2020-06-10] MEDS ORDERED: MIDAZOLAM DRIP PRE-MIX 100 ML IV ONE (13:44)
[2020-06-10] MEDS ORDERED: A & D OINT 113 GM TUBE TOP PRN (13:45)
--- NOTE | 2020-06-10 13:49 | Pulmonary Procedures ---
Pulmonary Procedures Date of Procedure Date of Service: Jun 10, 2020 Reason for Intubation: acute respiratory failure Time of Intubation: 13:49 Intubation Method: orotracheal Tube Size: 8 Medications: Propofol, Versed Positive End Tide CO2: Yes Breath Sounds after Intubation: bilateral-equal Intubation Complications: no complications Post Intubation Xray: Yes MARIA ELENA GODINEZ DO Jun 10, 2020 13:49
[2020-06-10] MEDS: MIDAZOLAM DRIP PRE-MIX 100 ML IV SCH (13:52)
[2020-06-10] MEDS: PROPOFOL DRIP (ICU) 100 ML IV SCH ×5 (13:52→23:31)
[2020-06-10] MEDS ORDERED: morphine INJ 4 MG/ML 1 ML (VIAL/SYRINGE) IVP PRN (14:00)
[2020-06-10] MEDS ORDERED: PIPERACILLIN/TAZO 4.5 GM/NS 100 ML IV NR ×2 (14:00)
--- NOTE | 2020-06-10 14:09 | NUR ---
Spoke with the patients Kathrin to ensure she had been updated.
--- NOTE | 2020-06-10 14:14 | NUR ---
Spoke with and updated the patients son at this time
--- NOTE | 2020-06-10 14:20 | NUR ---
Patient transferred to ICU6 at this time via bed on 10L NC. Placed on BiPap upon entering room. Patient alert to self. Report given to Candida at bedside.
--- NOTE | 2020-06-10 14:24 | NUR ---
1310 PT TO ROOM ICU 6 VIA BED ACCOMPANIED BY MED SURG STAFF. PT DROWSY IS UNABLE TO FOLLOW COMMANDS SA02 IN THE LOW 80'S UPON ARRIVAL, PT PLACED ON BIPAP, DR GODINEZ IN ROOM TO SEE PATIENT AND ORDERS TO INTUBATE GIVEN. THIS RN SPOKE TO PT'S AND CONSENT OBTAINED FOR INTUBATION AND PICC LINE PLACEMENT. TIMELINE OF EVENTS: 1338 VERSED GIVEN 1340 50MCQ OF PROPOFOL GIVEN 1341 BIPAP REMOVED [address] GODINEZ WITH + COLOR CHANGE AND B/L BREATH SOUNDS NOTED 1343 ET TUBE SECURE WITH SIZE 8.0 23 TEETH 1347 NG TUBE PLACED IN LEFT NARE 1348 VENT SETTING OF PEEP 10 FIO2 60, RR 26 TV 450 RESTRAINTS ON 1358 CXR COMPLETED
[2020-06-10] MEDS ORDERED: PROPOFOL DRIP (ICU) 100 ML IV SCH (14:30)
--- NOTE | 2020-06-10 14:52 | Diagnostic Imaging Report ---
Indication: Postintubation. Compared: 06/05/2020 Findings: ET tube projects over the midthoracic trachea. There is enlargement of the cardiac silhouette, body habitus limits radiographic detail. There is an OG catheter with its tip in the distal esophagus about 2 cm above the expected EG junction. Impression: ET tube in good alignment. The OG catheter tip is at the distal esophagus, it is roughly 7 to 8 cm from the expected mid gastric lumen level. Dictated by: Dictated on workstation # [id number]
--- NOTE | 2020-06-10 14:54 | Occ Therapy Progress Note ---
Therapy Progress Note OT orders received. Pt is currently intubated and sedated. OT will continue to monitor pt and initiate tx when pt is more medically stable and able to actively participate in skilled therapy. CJ LEVINE OT Jun 10, 2020 14:54
[2020-06-10] MEDS: LACTATED RINGERS 1,000 ML IV SCH (15:03)
[2020-06-10 16:13] LABS: ABG BASE EXCESS -1.3 MMOL/L (-2.5-2.5); ABG OXYGEN SATURATION 99 % (94-100); ABG PCO2 46 MMHG (35-45); ABG PO2 160 MMHG (79-93); ABG TCO2 25.5 MMOL/L (21.0-31.0)
[2020-06-10 16:18] LABS: ABG PH 7.33 (7.37-7.43)
[2020-06-10 16:19] LABS: ALLENS TEST POS; INSPIRED O2 60%; PATIENT TEMP 35.8; VENTILATOR YES
[2020-06-10 16:39] LABS: BILIRUBIN,URINE NEGATIVE (NEGATIVE); CLARITY,URINE CLEAR; COLOR,URINE YELLOW; GLUCOSE, URINE (UA) NEGATIVE (NEGATIVE); KETONES,URINE NEGATIVE (NEGATIVE); LEUKOCYTE ESTERASE ,URINE TRACE (NEGATIVE); NITRITE,URINE NEGATIVE (NEGATIVE); PROTEIN,URINE 2+ (NEGATIVE)
[2020-06-10 16:51] LABS: AMORPHOUS SEDIMENT,UR FEW AMOR URATES /LPF; BACTERIA,URINE FEW /HPF; RBC,URINE 25-50 /HPF; URINE OTHER 2-5 TRANS EPIS /HPF
[2020-06-10] MEDS ORDERED: PIPERACILLIN/TAZO 4.5 GM VIAL (ZOSYN) IV ONE (20:21)
[2020-06-10] MEDS ORDERED: NS (IVPB) 100 ML ONE (20:21)
[2020-06-10] MEDS ORDERED: fentaNYL INJECTION 100 MCG/2 ML AMP IV ONE (20:24)
[2020-06-10] MEDS ORDERED: MIDAZOLAM 5 MG/5 ML (VERSED) VIAL IJ ONE (20:24)
[2020-06-10] MEDS ORDERED: ROCURONIUM 10 MG/ML 5 ML SYRINGE IV ONE (20:24)
[2020-06-10] MEDS: PIPERACILLIN/TAZOBACTAM (BULK) 4.5 GM in NS (IVPB) 100 ML IV SCH (20:26)
[2020-06-10] MEDS: SIMvastatin 10 MG (ZOCOR) TAB PO SCH (20:28)
[2020-06-10] MEDS: ASPIRIN E.C. 81 MG (ECOTRIN) TAB PO SCH (20:30)
[2020-06-10] MEDS: LINEZOLID IVPB 300 ML IV SCH (20:31)
[2020-06-10] MEDS ORDERED: ATRACURIUM INJECTION 250 MG in NS (IVPB) 225 ML IV SCH (20:45)
[2020-06-11] VITALS (29 sets, daily range): BP systolic 130–156; BP diastolic 72–97
[2020-06-11] MEDS ORDERED: ARTIFICIAL TEARS OINT (LACRI-LUBE) 3.5 GM TUBE OU SCH
[2020-06-11] MEDS: inSUlin ASPART (NovoLOG) 1 UNIT/0.01 ML (CHARGE PER UNIT) SC SCH ×4 (00:46→17:44)
[2020-06-11] MEDS: LACTATED RINGERS 1,000 ML IV SCH ×3 (01:12→17:44)
[2020-06-11] MEDS: LEVOTHYROXINE 50 MCG (LEVOTHROID) TAB PO SCH ×2 (01:12→09:18)
[2020-06-11] MEDS: PROPOFOL DRIP (ICU) 100 ML IV SCH ×9 (02:03→23:05)
[2020-06-11 03:12] LABS: HEMOGLOBIN 9.9 g/dL (13.3-17.7); MEAN PLATELET VOLUME 10.2 fL (9.0-12.2); WHITE BLOOD COUNT 9.6 10^3/uL (4.3-11.0)
[2020-06-11 03:21] LABS: ABG BASE EXCESS -1.6 MMOL/L (-2.5-2.5); ABG OXYGEN SATURATION 94 % (94-100); ABG PCO2 38 MMHG (35-45); ABG PH 7.39 (7.37-7.43); ABG PO2 70 MMHG (79-93); ABG TCO2 24.2 MMOL/L (21.0-31.0)
[2020-06-11] MEDS: RT-ALBUTEROL INHALER HFA (VENTOLIN HFA) 18 GM IH SCH ×4 (03:21→18:17)
[2020-06-11 03:22] LABS: ALLENS TEST YES-POS; INSPIRED O2 30%; PATIENT TEMP 35.3; VENTILATOR YES
[2020-06-11 03:29] LABS: BUN/CREATININE RATIO 24; CALCIUM 8.3 MG/DL (8.5-10.1); CARBON DIOXIDE 21 MMOL/L (21-32); CHLORIDE 103 MMOL/L (98-107); CREATININE SERUM 2.71 MG/DL (0.60-1.30); GFR ESTIMATED 24; GLUCOSE 182 MG/DL (70-105); MAGNESIUM 2.6 MG/DL (1.6-2.4); PHOSPHORUS 3.7 MG/DL (2.3-4.7); POTASSIUM 4.1 MMOL/L (3.6-5.0); SODIUM 137 MMOL/L (135-145)
--- NOTE | 2020-06-11 03:36 | Pulmonary Progress Note ---
MICHELLE FUENTES,MED STUDENT 06/11/20 0336: Subjective Date Seen by a Provider: Jun 11, 2020 Time Seen by a Provider: 03:20 Subjective/Events-last exam Sedated on vent Sepsis Event Evaluation Height, Weight, BMI Height: 6'2.00" Weight: 371lbs. 1.0oz. 168.661210ge; 57.64 BMI Method:Stated Focused Exam Lactate Level 06/10/20 14:14: Lactic Acid Level 1.10 Exam Exam Vital Signs Date Time Temp Pulse Resp B/P (MAP) Pulse Ox O2 Delivery O2 Flow Rate FiO2 06/11/20 03:23 81 26 100 21 06/11/20 02:03 77 144/86 06/10/20 23:31 77 144/86 06/10/20 23:00 77 26 144/86 (105) 99 Mechanical Ventilator 30.00 06/10/20 22:51 88 26 100 30 06/10/20 22:00 78 26 129/70 (89) 100 Mechanical Ventilator 30.00 06/10/20 21:30 Mechanical Ventilator 30.00 06/10/20 21:00 78 25 132/72 (92) 100 Mechanical Ventilator 40.00 06/10/20 21:00 79 123/73 06/10/20 20:03 35.8 06/10/20 20:00 80 26 129/77 (94) 100 Mechanical Ventilator 40.00 06/10/20 20:00 97 Mechanical Ventilator 30.00 06/10/20 19:38 79 26 100 45 06/10/20 19:00 79 25 127/75 (92) 100 Mechanical Ventilator 40.00 06/10/20 19:00 79 06/10/20 18:20 77 123/73 06/10/20 18:00 35.7 77 25 122/69 (86) 100 Nasal Cannula 50.00 06/10/20 17:00 35.7 77 123/75 (91) 85 Nasal Cannula 50.00 06/10/20 16:45 Mechanical Ventilator 50.00 06/10/20 16:00 35.7 78 25 118/71 (87) 100 Nasal Cannula 3.00 06/10/20 15:56 80 119/80 06/10/20 15:10 80 26 100 100 06/10/20 15:00 35.7 79 26 100 Nasal Cannula 3.00 06/10/20 14:00 35.7 90 25 100 Nasal Cannula 3.00 06/10/20 13:53 95 28 110/78 06/10/20 13:52 95 28 110/78 06/10/20 13:52 95 110/78 06/10/20 13:31 95 06/10/20 13:30 100 Mechanical Ventilator 100.00 06/10/20 13:18 96 06/10/20 10:53 28 40.00 06/10/20 08:49 97 Nasal Cannula 3.00 06/10/20 08:00 Nasal Cannula 3.00 06/10/20 08:00 35.7 95 18 110/78 (89) 98 Nasal Cannula 3.00 I & O 06/11/20 06:59 Intake Total 130 ml Output Total 1625 ml Balance -1495 ml Height & Weight Height: 6'2.00" Weight: 371lbs. 1.0oz. 168.236462lm; 57.64 BMI Method:Stated General Appearance: WD/WN, Chronically ill, Obese, Other HEENT: PERRL/EOMI, Normal ENT Inspection Respiratory: Chest Non Tender, Crackles, Decreased Breath Sounds, Other (on vent) Cardiovascular: Regular Rate, Rhythm, No Murmur, Normal Peripheral Pulses Capillary Refill: Less Than 3 Seconds Peripheral Pulses: 1+ Dorsalis Pedis (R), 1+ Left Dors-Pedis (L) Gastrointestinal: normal bowel sounds, non tender, soft Extremity: Inflammation, Pedal Edema, Other Neurologic/Psychiatric: No Motor/Sensory Deficits, Other (sedated on vent) Skin: Warm/Dry, Erythema, Other Lymphatic: No Adenopathy Results Lab Laboratory Tests 06/09/20 05:43 06/10/20 05:20 06/11/20 02:55 Assessment/Plan Assessment/Plan Acute respiratory failure -sedated on vent -intubated 06/10 -21% FiO2, PEEP of 10 -attempt to decrease PEEP to 5 Sepsis with leukocytosis -improving -Arceo cultures pending -On Zosyn and zyvox -PCT elevated, repeat Morbid obesity with OHS Acute worsening renal failure -on LR at 100/hr CHF hx -EF 30-35% in July -Cardiology consulted Peripheral arterial disease Chronic venostasis changes MARIA ELENA GODINEZ DO 06/11/20 0543: Assessment/Plan Assessment/Plan Acute respiratory failure -sedated on vent -intubated 06/10 -21% FiO2, PEEP of 10 -- decrease PEEP to 5 Sepsis with leukocytosis -improving -Arceo cultures pending -On Zosyn and zyvox -PCT elevated, repeat Morbid obesity with OHS Acute worsening renal failure -on LR at 100/hr -Give a liter bolus of LR CHF hx -EF 30-35% in July -Cardiology consulted Peripheral arterial disease Chronic venostasis changes MICHELLE FUENTES,MED STUDENT Jun 11, 2020 03:36 MARIA ELENA GODINEZ DO Jun 11, 2020 05:43
[2020-06-11] MEDS: POTASSIUM CL 10MEQ/50ML IVPB 50 ML IV SCH (03:44)
[2020-06-11] MEDS: MAGNESIUM 1 GM/100 ML IVPB 100 ML IV SCH (03:45)
[2020-06-11] MEDS: KCL 20 MEQ TAB (K-DUR) PO SCH (03:45)
[2020-06-11] MEDS: ENOXAPARIN 60 MG/0.6 ML (LOVENOX) SYR SC SCH ×2 (04:39→17:43)
[2020-06-11] MEDS: PIPERACILLIN/TAZOBACTAM (BULK) 4.5 GM in NS (IVPB) 100 ML IV SCH ×3 (04:39→20:32)
[2020-06-11] MEDS ORDERED: LACTATED RINGERS 1,000 ML IV SCH (05:45)
--- NOTE | 2020-06-11 05:57 | Progress Note - Hospitalist ---
Subjective HPI/CC On Admission Date Seen by Provider: Jun 11, 2020 Time Seen by Provider: 11:00 Subjective/Events-last exam Intubated Reviewed labs and meds Tolerating vent settings Focused Exam Lactate Level 06/10/20 14:14: Lactic Acid Level 1.10 Objective Exam Vital Signs Vital Signs Date Time Temp Pulse Resp B/P (MAP) Pulse Ox O2 Delivery O2 Flow Rate FiO2 06/12/20 04:00 36.4 06/12/20 04:00 92 32 118/75 (89) 99 Mechanical Ventilator 40.00 06/11/20 18:17 30 Capillary Refill : Greater Than 3 SecondsLess Than 3 Seconds General Appearance: No Apparent Distress, WD/WN, Chronically ill, Obese Respiratory: Lungs Clear Cardiovascular: Regular Rate, Rhythm Results/Procedures Lab Laboratory Tests 06/12/20 02:30 Patient resulted labs reviewed. Assessment/Plan Assessment and Plan Assess & Plan/Chief Complaint Assessment: Sepsis Lower extremities cellulitis Venous stasis dermatitis chronic CKD DM Obesity Plan: IV abx Monitor creatinine Wound care 06/09/20: IV anx Wound care Cardiology consultation 06/10/20: Tx to ICU APpreciate Dr Pang Patient weighs too much for CT scan table 06/11/20: Vent Monitor creat Abx Diagnosis/Problems Diagnosis/Problems (1) Sepsis Status: Acute Qualifiers: Sepsis type: sepsis due to unspecified organism Sepsis acute organ dysfunction status: without acute organ dysfunction Qualified Codes: A41.9 - Sepsis, unspecified organism (2) Cellulitis Status: Acute Qualifiers: Site of cellulitis: extremity Site of cellulitis of extremity: lower extremity Laterality: unspecified laterality Qualified Codes: L03.119 - Cellulitis of unspecified part of limb (3) Debility Status: Acute (4) CHF (congestive heart failure) Status: Chronic Qualifiers: Heart failure type: systolic Heart failure chronicity: chronic Qualified Codes: I50.22 - Chronic systolic (congestive) heart failure (5) Supplemental oxygen dependent Status: Chronic (6) COPD (chronic obstructive pulmonary disease) Status: Chronic Qualifiers: COPD type: emphysema Emphysema type: panlobular Qualified Codes: J43.1 - Panlobular emphysema (7) Diabetes mellitus Status: Chronic Qualifiers: Diabetes mellitus type: type 2 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
[2020-06-11] MEDS ORDERED: polyethylene glycoL POWDER 17 GM (MIRALAX) PACK PO PRN (06:15)
[2020-06-11] MEDS ORDERED: SENNA W/DOCUSATE (SENOKOT S) TABLET PO PRN (06:15)
[2020-06-11] MEDS ORDERED: LACTULOSE SYRUP 10GM/15ML (ENULOSE) 30ML UDC PO PRN (06:15)
[2020-06-11] MEDS ORDERED: LEVOTHYROXINE 50 MCG (LEVOTHROID) TAB PO SCH (07:00)
--- NOTE | 2020-06-11 07:55 | Diagnostic Imaging Report ---
Indication: Respiratory failure Portable AP view of the chest is obtained. Comparison is made to study of one day earlier. There is continued cardiomegaly and pulmonary venous congestion. Endotracheal tube is in place with tip at the level of thoracic inlet and nasogastric tube is also present although the tip is not visualized. There is mild bilateral airspace disease. No pneumothorax is identified. IMPRESSION: Cardiomegaly and pulmonary venous congestion with probable mild diffuse pulmonary edema. No pneumothorax or focal consolidation is identified. There has been placement of right upper extremity PICC with catheter tip projecting over the lower superior vena cava. Dictated by: Dictated on workstation # [id number]
--- NOTE | 2020-06-11 08:16 | Physical Therapy Progress Note ---
Therapy Progress Note Patient transferred to ICU secondary to respiratory failure. PT will require new orders when patient is medically stable and able to actively participate with skilled therapy. JOSE WALL PT Jun 11, 2020 08:16
[2020-06-11] MEDS: DOCUSATE SODIUM 100 MG (COLACE) CAP PO SCH ×4 (08:34→22:27)
[2020-06-11] MEDS: PANTOPRAZOLE 20 MG TABLET (PROTONIX) PO SCH (08:34)
--- NOTE | 2020-06-11 08:45 | NUR ---
SPOKE WITH BIBIANA IN PHARMACY ABOUT PT MEDICATIONS THAT CAN BE CRUSHED, AND RECOMMENDATIONS FOR PATIENT MEDIATIONS WHILE ON VENT.
[2020-06-11] MEDS: GABAPENTIN 100 MG (NEURONTIN) CAP PO SCH ×2 (08:50→20:31)
[2020-06-11] MEDS: CYANOCOBALAMIN 1,000 MCG (VITAMIN B-12) TABLET PO SCH (08:50)
--- NOTE | 2020-06-11 08:50 | NUR ---
SPOKE WITH DR. GODINEZ ABOUT PT MEDICATIONS THAT CAN'T BE CRUSHED AND PLACED IN NGT. RECEIVED ORDER TO CHANGE METOPROLOL TO METOPROLOL TARTRATE WHILE PATIENT IS INTUBATED.
--- NOTE | 2020-06-11 08:56 | Cardiology Progress Note ---
Subjective Date Seen by Provider: Jun 11, 2020 Time Seen by Provider: 08:53 Subjective/Events-last exam patient is sedated and intubated Review of Systems General: Other (unable to provide review of systems) Focused Exam Lactate Level 06/10/20 14:14: Lactic Acid Level 1.10 Objective-Cardiology Exam Last Set of Vital Signs Vital Signs 06/11/20 06/11/20 06/11/20 07:16 07:49 08:00 Temp 36.6 Pulse 102 Resp 24 B/P (MAP) 147/88 (107) Pulse Ox 95 O2 Delivery Mechanical Ventilator O2 Flow Rate 30.00 FiO2 21 Capillary Refill : Greater Than 3 SecondsLess Than 3 Seconds I&O Intake and Output 06/11/20 00:00 Intake Total 180 ml Output Total 1325 ml Balance -1145 ml Intake Oral 50 ml IV Total 130 ml Output Urine Total 1325 ml # Voids 1 General: Other (sedated and intubated) HEENT: Atraumatic, PERRLA Neck: Supple Lungs: Other (bilateral rhonchi) Heart: Regular Rate, Normal S1, Normal S2, No Murmurs Abdomen: Other (obese ) Extremities: No Clubbing, No Cyanosis, Other (Legs are edematous with rubor and calor present to the knees. ) Skin: No Breakdown, Other (Skin breakdown on lower legs circumfrentially due to swelling and infection with seaping nature to the wound.) Neuro: Other (sedated and intubated) Psych/Mental Status: Other (sedated and intubated) Results Lab Laboratory Tests 06/11/20 02:55 A/P-Cardiology Admission Diagnosis sepsis Peripheral arterial disease Chronic venostasis changes Congestive heart failure Assessment/Plan Acute respiratory failure, Hypercapnic respiratory failure, intubated, ventilator dependent, appear to be acute exacerbation of COPD. Receiving IV fluid at this time, managed by Dr. Pang Sepsis from bilateral LE cellulitis - managed by medicine team Chronic venous stasis ulcers on bilateral lower extremities with foot ulcer over L 5th metatarsal, conservative management. Continue on antibiotics and monitor Acute on chronic systolic/diastolic, nonishchemic CHF exacerbation, I will repeat 2-D echocardiogram - Echo of 10/29/18: LVEF 30-35%, AoV scl w/o stenoses, PASP 25 mmHg. Most recent echo of Mar 29, 2019 showed LVEF 45-50% with grade 1 diastolic dysfunction - Not a suitable candidate for CYRUS/ARB d/t documented hyperkalemia on these agents - MPI on 02/14/17: LVEF 30%, mod cardiomegaly, no distinct evidence of ischemia or infarction Acute renal failure, history of CKD, started on IV fluid. Has been following with Dr. Suarez in [place]. 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 Oxygen dependent COPD, managed by primary care team Morbid obesity with obesity-hypoventilation and RORY syndrome, currently intubated Former smoker but quit smoking in the Clinical Quality Measures DVT/VTE Risk/Contraindication: Risk Factor Score Per Nursin RFS Level Per Nursing on Admit: 4+=Very High YVETTE DORADO MD Jun 11, 2020 08:56
[2020-06-11] MEDS: LINEZOLID IVPB 300 ML IV SCH ×2 (09:17→20:30)
[2020-06-11] MEDS: PANTOPRAZOLE 40 MG (PROTONIX) VIAL IV SCH (09:17)
[2020-06-11] MEDS: meTOprolol TARTRATE 50 MG (LOPRESSOR) TAB PO SCH ×2 (09:18→20:31)
--- NOTE | 2020-06-11 09:54 | NUR ---
SPOKE WITH FOR PATIENT UPDATE.
--- NOTE | 2020-06-11 14:12 | NUR ---
Received dietary consult for vent status. If pt is to remain on the vent for more than 3days, would recommend initiation of TF of Pulmocare via 60ml bolus feeds q4h with 30ml free water flushes before/after each bolus. Would recommend increases of TF by 30ml q8h as tolerated toward goal of 240ml bolus feeds q4h. Will continue to follow and reassess as pt needs, intake, and status change. Cliff Oliveira, MS RD LD [phone] cell
[2020-06-11] MEDS: ASPIRIN E.C. 81 MG (ECOTRIN) TAB PO SCH (20:31)
[2020-06-11] MEDS: SIMvastatin 10 MG (ZOCOR) TAB PO SCH (20:31)
[2020-06-12] VITALS (66 sets, daily range): BP systolic 91–141; BP diastolic 60–96
[2020-06-12] MEDS: inSUlin ASPART (NovoLOG) 1 UNIT/0.01 ML (CHARGE PER UNIT) SC SCH ×5 (00:06→23:27)
[2020-06-12] MEDS: PROPOFOL DRIP (ICU) 100 ML IV SCH ×7 (01:52→21:24)
[2020-06-12] MEDS ORDERED: LEVOTHYROXINE 50 MCG (LEVOTHROID) TAB PO SCH (02:00)
[2020-06-12 02:50] LABS: BASOPHILS # (AUTO) 0.1 10^3/uL (0.0-0.1); BASOPHILS % (AUTO) 1 % (0-10); EOSINOPHILS # (AUTO) 0.2 10^3/uL (0.0-0.3); EOSINOPHILS % (AUTO) 2 % (0-10); HEMATOCRIT 35 % (40-54); HEMOGLOBIN 10.1 g/dL (13.3-17.7); LYMPHOCYTES # (AUTO) 1.3 10^3/uL (1.0-4.0); LYMPHOCYTES % (AUTO) 11 % (12-44); MEAN CORPUSCULAR HEMOGLOBIN 24 pg (25-34); MEAN CORPUSCULAR HGB CONC 29 g/dL (32-36); MEAN CORPUSCULAR VOLUME 85 fL (80-99); MEAN PLATELET VOLUME 10.3 fL (9.0-12.2); MONOCYTES % (AUTO) 9 % (0-12); NEUTROPHILS # (AUTO) 8.3 10^3/uL (1.8-7.8); NEUTROPHILS % (AUTO) 74 % (42-75); PLATELET COUNT 319 10^3/uL (130-400); WHITE BLOOD COUNT 11.1 10^3/uL (4.3-11.0)
[2020-06-12 02:53] LABS: ABG BASE EXCESS -2.4 MMOL/L (-2.5-2.5); ABG OXYGEN SATURATION 92 % (94-100); ABG PCO2 44 MMHG (35-45); ABG PO2 71 MMHG (79-93); ABG TCO2 24.1 MMOL/L (21.0-31.0)
[2020-06-12 03:00] LABS: POTASSIUM 4.9 MMOL/L (3.6-5.0)
[2020-06-12 03:01] LABS: CALCIUM 8.2 MG/DL (8.5-10.1)
[2020-06-12 03:05] LABS: PHOSPHORUS 4.8 MG/DL (2.3-4.7)
[2020-06-12 03:06] LABS: CREATININE SERUM 3.07 MG/DL (0.60-1.30)
[2020-06-12 03:08] LABS: MAGNESIUM 2.2 MG/DL (1.6-2.4)
[2020-06-12 03:13] LABS: ABG PH 7.33 (7.37-7.43); ALLENS TEST YES-POS; INSPIRED O2 40%
[2020-06-12 03:14] LABS: PATIENT TEMP 36.4; VENTILATOR YES
[2020-06-12] MEDS: ENOXAPARIN 60 MG/0.6 ML (LOVENOX) SYR SC SCH ×2 (03:30→16:56)
[2020-06-12] MEDS: PIPERACILLIN/TAZOBACTAM (BULK) 4.5 GM in NS (IVPB) 100 ML IV SCH ×3 (03:30→20:10)
--- NOTE | 2020-06-12 03:43 | Pulmonary Progress Note ---
MICHELLE FUENTES,MED STUDENT 06/12/20 0343: Subjective Date Seen by a Provider: Jun 12, 2020 Time Seen by a Provider: 03:15 Subjective/Events-last exam Sedated on vent Sepsis Event Evaluation Height, Weight, BMI Height: 6'2.00" Weight: 371lbs. 1.0oz. 168.859675jg; 57.64 BMI Method:Stated Focused Exam Lactate Level 06/10/20 14:14: Lactic Acid Level 1.10 Exam Exam Vital Signs Date Time Temp Pulse Resp B/P (MAP) Pulse Ox O2 Delivery O2 Flow Rate FiO2 06/12/20 01:52 112 142/75 06/11/20 23:05 112 142/75 06/11/20 23:00 100 26 130/75 (93) 90 Mechanical Ventilator 40.00 06/11/20 22:00 112 26 139/72 (94) 93 Mechanical Ventilator 40.00 06/11/20 21:00 112 26 145/72 (96) 93 Mechanical Ventilator 40.00 06/11/20 20:29 142/75 06/11/20 20:28 112 26 142/75 (97) 92 Mechanical Ventilator 40.00 06/11/20 20:15 Mechanical Ventilator 45.00 06/11/20 20:00 112 16 142/75 (97) 92 Mechanical Ventilator 40.00 06/11/20 20:00 36.8 06/11/20 19:00 112 20 143/75 (97) 92 Mechanical Ventilator 40.00 06/11/20 19:00 113 06/11/20 18:17 111 24 89 30 06/11/20 18:00 109 32 138/75 (96) 89 Mechanical Ventilator 30.00 06/11/20 17:52 109 141/79 06/11/20 17:00 110 25 133/73 (93) 92 Mechanical Ventilator 30.00 06/11/20 16:00 108 33 142/80 (100) 92 Mechanical Ventilator 30.00 06/11/20 15:34 36.4 06/11/20 15:15 106 144/80 06/11/20 15:00 109 25 144/80 (101) 92 Mechanical Ventilator 30.00 06/11/20 14:36 108 26 92 30 06/11/20 14:00 107 25 142/85 (104) 92 Mechanical Ventilator 30.00 06/11/20 13:00 104 30 148/75 (99) 92 Mechanical Ventilator 30.00 06/11/20 13:00 99 06/11/20 12:26 102 141/80 06/11/20 12:00 102 25 143/83 (103) 92 Mechanical Ventilator 30.00 06/11/20 11:52 36.3 06/11/20 11:00 99 25 135/84 (101) 92 Mechanical Ventilator 30.00 06/11/20 10:39 101 26 93 30 06/11/20 10:00 100 29 143/83 (103) 92 Mechanical Ventilator 30.00 06/11/20 09:51 95 124/79 06/11/20 09:00 96 Mechanical Ventilator 30.00 06/11/20 09:00 98 26 146/86 (106) 95 Mechanical Ventilator 30.00 06/11/20 08:00 102 24 147/88 (107) 95 Mechanical Ventilator 30.00 06/11/20 07:49 36.6 06/11/20 07:16 101 26 91 21 06/11/20 07:00 99 25 156/97 (116) 94 Mechanical Ventilator 30.00 06/11/20 07:00 99 06/11/20 06:57 94 136/83 06/11/20 06:00 96 24 143/84 (103) 94 Mechanical Ventilator 30.00 06/11/20 05:00 36.3 06/11/20 05:00 94 25 136/83 (100) 95 Mechanical Ventilator 30.00 06/11/20 04:32 81 144/86 06/11/20 04:00 92 20 147/89 (108) 97 Mechanical Ventilator 30.00 I & O 06/12/20 07:00 Intake Total 920 ml Output Total 800 ml Balance 120 ml Height & Weight Height: 6'2.00" Weight: 371lbs. 1.0oz. 168.707734te; 57.64 BMI Method:Stated General Appearance: No Apparent Distress, WD/WN, Chronically ill, Obese HEENT: PERRL/EOMI, Normal ENT Inspection Respiratory: Lungs Clear Cardiovascular: Regular Rate, Rhythm Capillary Refill: Less Than 3 Seconds Peripheral Pulses: 1+ Dorsalis Pedis (R), 1+ Left Dors-Pedis (L) Gastrointestinal: normal bowel sounds, non tender, soft Extremity: Inflammation, Pedal Edema, Other Neurologic/Psychiatric: Disoriented Skin: Warm/Dry, Erythema, Other Lymphatic: No Adenopathy Results Lab Laboratory Tests 06/10/20 05:20 06/11/20 02:55 06/12/20 02:30 Assessment/Plan Assessment/Plan Acute respiratory failure -sedated on vent -intubated 06/10 -FiO2 40%, PEEP 5 Sepsis with leukocytosis -improving -On Zosyn and zyvox -PCT elevated Morbid obesity with OHS Acute worsening renal failure -on LR at 100/hr -Give a liter bolus of LR CHF hx -EF 30-35% in July -Cardiology consulted Peripheral arterial disease Chronic venostasis changes MARIA ELENA GODINEZ DO 06/12/20 0421: Subjective Time Seen by a Provider: 04:16 Assessment/Plan Assessment/Plan Acute respiratory failure -sedated on vent -intubated 06/10 -FiO2 40%, PEEP 5 Sepsis with leukocytosis -improving -On Zosyn and zyvox -PCT elevated Morbid obesity with OHS Acute worsening renal failure -Give a liter bolus of NS -on LR at 100/hr - Increase to 150 CHF hx -EF 30-35% in July -Cardiology consulted Peripheral arterial disease Chronic venostasis changes MICHELLE FUENTES,MED STUDENT Jun 12, 2020 03:43 MARIA ELENA GODINEZ DO Jun 12, 2020 04:21
[2020-06-12] MEDS: KCL 20 MEQ TAB (K-DUR) PO SCH (03:50)
[2020-06-12] MEDS: MAGNESIUM 1 GM/100 ML IVPB 100 ML IV SCH (03:50)
[2020-06-12] MEDS: POTASSIUM CL 10MEQ/50ML IVPB 50 ML IV SCH (03:50)
[2020-06-12] MEDS: LACTATED RINGERS 1,000 ML IV SCH ×3 (03:56→18:14)
[2020-06-12] MEDS ORDERED: NS IV 1000 ML 1,000 ML IV SCH (04:30)
--- NOTE | 2020-06-12 05:29 | Diagnostic Imaging Report ---
Indication: Respiratory failure Portable chest 2:19 AM ET tube projects over the trachea. NG tube enters the stomach. There is cardiomegaly. Lungs appear clear. There is no appreciable effusion or pneumothorax. IMPRESSION: Massive cardiomegaly. No change from previous day. Dictated by: Dictated on workstation # [id number]
[2020-06-12] MEDS: CYANOCOBALAMIN 1,000 MCG (VITAMIN B-12) TABLET PO SCH (07:09)
[2020-06-12] MEDS: PANTOPRAZOLE 20 MG TABLET (PROTONIX) PO SCH (07:09)
[2020-06-12] MEDS: DOCUSATE SODIUM 100 MG (COLACE) CAP PO SCH ×2 (07:09→19:20)
[2020-06-12] MEDS: GABAPENTIN 100 MG (NEURONTIN) CAP PO SCH ×2 (07:09→20:10)
[2020-06-12] MEDS: RT-ALBUTEROL INHALER HFA (VENTOLIN HFA) 18 GM IH SCH ×3 (07:12→18:29)
[2020-06-12] MEDS: LINEZOLID IVPB 300 ML IV SCH ×2 (07:38→20:09)
[2020-06-12] MEDS: PANTOPRAZOLE 40 MG (PROTONIX) VIAL IV SCH (07:38)
[2020-06-12] MEDS: LEVOTHYROXINE 50 MCG (LEVOTHROID) TAB PO SCH (07:38)
[2020-06-12] MEDS: meTOprolol TARTRATE 50 MG (LOPRESSOR) TAB PO SCH ×2 (07:48→20:10)
[2020-06-12] MEDS: CALCIUM ACETATE 667 MG CAP (PHOSLO) PO SCH ×3 (07:48→18:14)
[2020-06-12] MEDS: MIDAZOLAM DRIP PRE-MIX 100 ML IV SCH (08:39)
--- NOTE | 2020-06-12 09:27 | Physical Therapy Progress Note ---
Therapy Progress Note Patient remains intubated and sedated. PT will require new orders to resume therapies. JOSE WALL PT Jun 12, 2020 09:27
--- NOTE | 2020-06-12 10:44 | Progress Note - Hospitalist ---
Subjective HPI/CC On Admission Date Seen by Provider: Jun 12, 2020 Time Seen by Provider: 10:00 Subjective/Events-last exam Still intubated but FiO2 25% Conferred with Dr Pang No major issues Labs reviewed Focused Exam Lactate Level 06/10/20 14:14: Lactic Acid Level 1.10 Objective Exam Vital Signs Vital Signs Date Time Temp Pulse Resp B/P (MAP) Pulse Ox O2 Delivery O2 Flow Rate FiO2 06/13/20 05:00 90 25 120/78 (92) 94 Mechanical Ventilator 40.00 06/13/20 04:07 36.0 06/13/20 02:47 40 Capillary Refill : Greater Than 3 SecondsLess Than 3 Seconds General Appearance: No Apparent Distress, WD/WN, Chronically ill, Obese Respiratory: Lungs Clear Cardiovascular: Regular Rate, Rhythm Results/Procedures Lab Laboratory Tests 06/13/20 02:00 Patient resulted labs reviewed. Assessment/Plan Assessment and Plan Assess & Plan/Chief Complaint Assessment: Sepsis Lower extremities cellulitis Venous stasis dermatitis chronic CKD DM Obesity Plan: IV abx Monitor creatinine Wound care 06/09/20: IV anx Wound care Cardiology consultation 06/10/20: Tx to ICU APpreciate Dr Pang Patient weighs too much for CT scan table 06/11/20: Vent Monitor creat Abx 06/12/20: Vent Monitor closely Diagnosis/Problems Diagnosis/Problems (1) Sepsis Status: Acute Qualifiers: Sepsis type: sepsis due to unspecified organism Sepsis acute organ dysfunction status: without acute organ dysfunction Qualified Codes: A41.9 - Sepsis, unspecified organism (2) Cellulitis Status: Acute Qualifiers: Site of cellulitis: extremity Site of cellulitis of extremity: lower extremity Laterality: unspecified laterality Qualified Codes: L03.119 - Cellulitis of unspecified part of limb (3) Debility Status: Acute (4) CHF (congestive heart failure) Status: Chronic Qualifiers: Heart failure type: systolic Heart failure chronicity: chronic Qualified Codes: I50.22 - Chronic systolic (congestive) heart failure (5) Supplemental oxygen dependent Status: Chronic (6) COPD (chronic obstructive pulmonary disease) Status: Chronic Qualifiers: COPD type: emphysema Emphysema type: panlobular Qualified Codes: J43.1 - Panlobular emphysema (7) Diabetes mellitus Status: Chronic Qualifiers: Diabetes mellitus type: type 2 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
--- NOTE | 2020-06-12 13:04 | NUR ---
Spoke with family at this time.
--- NOTE | 2020-06-12 13:49 | NUR ---
Note pt is currently NPO x2d. Note plan of care is to potentially extubate the pt over the weekend. Would not recommend TF at this time. However, if pt fails extubation, would recommend initiation of TF of Pulmocare via 60ml bolus feeds q4h with 30ml free water flushes before/after each bolus. Will continue to follow and reassess as pt needs, intake, and status change. Cliff Oliveira, MS RD LD [phone] cell
--- NOTE | 2020-06-12 16:03 | Cardiology Progress Note ---
Cardiology SOAP Progress Note Subjective: no cardiac complaints Objective: Weight (Pounds): 371 Weight (Ounces): 1.0 Weight (Calculated Kilograms): 168.634117 Constitutional: AAO x 3 Respiratory: chest is bilaterally symmetric, lungs clear to auscultation Cardiovascular: regular rate-rhythm, S1 and S2 Gastrointestional: soft, audible bowel sounds Extremities: normal range of motion, non-tender, normal inspection, no lower extremity edema bilateral Neurologic/Psychiatric: no motor/sensory deficits, alert, normal mood/affect, oriented x 3 Skin: other (See extremity exam above) Results/Procedures: Labs Microbiology 06/10/20 Urine Culture - Final, Complete NO GROWTH 06/10/20 Blood Culture - Preliminary, Resulted No growth 06/10/20 Gram Stain - Final, Complete 06/10/20 Sputum Culture - Final, Complete Usual upper respiratory clinton YEAST A/P: Assessment/Dx: sepsis Peripheral arterial disease Chronic venostasis changes Congestive heart failure Plan: Acute respiratory failure, Hypercapnic respiratory failure, intubated, ventilator dependent, appear to be acute exacerbation of COPD. Receiving IV fluid at this time, managed by Dr. Pang Sepsis from bilateral LE cellulitis - managed by medicine team Chronic venous stasis ulcers on bilateral lower extremities with foot ulcer over L 5th metatarsal, conservative management. Continue on antibiotics and monitor Acute on chronic systolic/diastolic, nonishchemic CHF exacerbation, - Echo of 10/29/18: LVEF 30-35%, AoV scl w/o stenoses, PASP 25 mmHg. Most recent echo of Mar 29, 2019 showed LVEF 45-50% with grade 1 diastolic dysfunction - Not a suitable candidate for CYRUS/ARB d/t documented hyperkalemia on these agents - MPI on 02/14/17: LVEF 30%, mod cardiomegaly, no distinct evidence of ischemia or infarction Acute renal failure, history of CKD, started on IV fluid. Has been following w devonte Suarez in [place]. 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 Oxygen dependent COPD, managed by primary care team Morbid obesity with obesity-hypoventilation and RORY syndrome, currently intubated Former smoker but quit smoking in the 1980s Thank you for your consultation. Please call me if you have any questions. Trey Barron MD, FACP, FACC, FSCAI, FHRS, CCDS Interventional Cardiology Cardiac Electrophysiology Vascular Medicine and Endovascular Interventions Focused Exam Lactate Level 06/13/20 06:45: Lactic Acid Level 1.19 Leonides BARRON MD Jun 12, 2020 16:03
[2020-06-12] MEDS: ASPIRIN E.C. 81 MG (ECOTRIN) TAB PO SCH (19:19)
[2020-06-12] MEDS: SIMvastatin 10 MG (ZOCOR) TAB PO SCH (20:10)
[2020-06-13] VITALS (21 sets, daily range): BP systolic 102–131; BP diastolic 46–81
[2020-06-13] MEDS: PROPOFOL DRIP (ICU) 100 ML IV SCH ×3 (00:34→07:48)
[2020-06-13] MEDS: LACTATED RINGERS 1,000 ML IV SCH (01:59)
[2020-06-13 02:29] LABS: ABG BASE EXCESS -4.2 MMOL/L (-2.5-2.5); ABG OXYGEN SATURATION 95 % (94-100); ABG PCO2 42 MMHG (35-45); ABG PO2 84 MMHG (79-93); ABG TCO2 22.3 MMOL/L (21.0-31.0)
[2020-06-13 02:35] LABS: ABG PH 7.32 (7.37-7.43); ALLENS TEST YES-POS
[2020-06-13 02:36] LABS: INSPIRED O2 40%; PATIENT TEMP 36.6; VENTILATOR YES
[2020-06-13 02:47] LABS: BASOPHILS # (AUTO) 0.1 10^3/uL (0.0-0.1); BASOPHILS % (AUTO) 1 % (0-10); EOSINOPHILS # (AUTO) 0.2 10^3/uL (0.0-0.3); EOSINOPHILS % (AUTO) 2 % (0-10); HEMATOCRIT 37 % (40-54); HEMOGLOBIN 10.4 g/dL (13.3-17.7); LYMPHOCYTES # (AUTO) 1.5 10^3/uL (1.0-4.0); LYMPHOCYTES % (AUTO) 14 % (12-44); MEAN CORPUSCULAR HEMOGLOBIN 24 pg (25-34); MEAN CORPUSCULAR HGB CONC 28 g/dL (32-36); MEAN CORPUSCULAR VOLUME 86 fL (80-99); MEAN PLATELET VOLUME 10.4 fL (9.0-12.2); MONOCYTES # (AUTO) 1.2 10^3/uL (0.0-1.0); MONOCYTES % (AUTO) 11 % (0-12); NEUTROPHILS % (AUTO) 68 % (42-75); PLATELET COUNT 331 10^3/uL (130-400); WHITE BLOOD COUNT 10.3 10^3/uL (4.3-11.0)
[2020-06-13] MEDS: RT-ALBUTEROL INHALER HFA (VENTOLIN HFA) 18 GM IH SCH ×2 (02:47→07:13)
[2020-06-13 03:47] LABS: CALCIUM 8.2 MG/DL (8.5-10.1)
[2020-06-13 03:51] LABS: CREATININE SERUM 3.35 MG/DL (0.60-1.30)
[2020-06-13 03:54] LABS: MAGNESIUM 2.3 MG/DL (1.6-2.4)
[2020-06-13] MEDS: MAGNESIUM 1 GM/100 ML IVPB 100 ML IV SCH (03:54)
[2020-06-13] MEDS: POTASSIUM CL 10MEQ/50ML IVPB 50 ML IV SCH (03:54)
[2020-06-13] MEDS: KCL 20 MEQ TAB (K-DUR) PO SCH (03:55)
[2020-06-13] MEDS: ENOXAPARIN 60 MG/0.6 ML (LOVENOX) SYR SC SCH (04:02)
[2020-06-13] MEDS: PIPERACILLIN/TAZOBACTAM (BULK) 4.5 GM in NS (IVPB) 100 ML IV SCH (04:02)
[2020-06-13] MEDS ORDERED: SODIUM BICARBONATE 8.4% VIAL 100 MEQ in 1/2 NS IV SOLUTION 1,000 ML IV SCH (06:00)
--- NOTE | 2020-06-13 06:06 | Pulmonary Progress Note ---
Subjective Time Seen by a Provider: 06:01 Subjective/Events-last exam Pt is sedated on vent. Sepsis Event Evaluation Height, Weight, BMI Height: 6'2.00" Weight: 371lbs. 1.0oz. 168.392134yt; 57.64 BMI Method:Stated Focused Exam Lactate Level 06/10/20 14:14: Lactic Acid Level 1.10 Exam Exam Vital Signs Date Time Temp Pulse Resp B/P (MAP) Pulse Ox O2 Delivery O2 Flow Rate FiO2 06/13/20 05:00 90 25 120/78 (92) 94 Mechanical Ventilator 40.00 06/13/20 04:07 36.0 06/13/20 04:02 90 102/64 06/13/20 04:00 90 22 110/46 (67) 94 Mechanical Ventilator 40.00 06/13/20 03:00 90 25 106/66 (79) 93 Mechanical Ventilator 40.00 06/13/20 02:47 90 26 93 40 06/13/20 02:00 89 25 110/67 (81) 93 Mechanical Ventilator 40.00 06/13/20 02:00 36.2 06/13/20 01:00 89 06/13/20 01:00 90 25 119/67 (84) 96 Mechanical Ventilator 40.00 06/13/20 00:34 86 120/75 06/13/20 00:00 89 21 121/68 (85) 96 Mechanical Ventilator 40.00 06/12/20 23:27 35.5 06/12/20 23:00 86 25 120/75 (90) 96 Mechanical Ventilator 40.00 06/12/20 22:09 86 26 92 40 06/12/20 22:00 88 25 127/75 (92) 95 Mechanical Ventilator 40.00 06/12/20 21:24 86 06/12/20 21:00 90 25 126/82 (97) 94 Mechanical Ventilator 40.00 06/12/20 20:00 90 25 132/79 (96) 94 Mechanical Ventilator 40.00 06/12/20 20:00 Mechanical Ventilator 45.00 06/12/20 19:54 36.4 93 26 130/76 (94) 94 Mechanical Ventilator 40.00 06/12/20 19:00 90 06/12/20 19:00 90 25 128/75 (92) 94 Mechanical Ventilator 40.00 06/12/20 18:29 93 26 92 40 12/18/20 18:27 93 134/87 20 18:00 25 139/87 (103) 93 Mechanical Ventilator 40.00 1820 17:45 25 137/84 (103) 93 1820 17:30 21 137/87 (102) 93 1820 17:15 25 135/88 (107) 93 1820 17:00 25 140/89 (110) 94 Mechanical Ventilator 40.00 18 16:57 36.3 1820 16:45 24 135/91 (106) 93 06/12/20 16:30 22 136/92 (108) 93 06/12/20 16:29 35.4 18 16:15 25 138/87 (116) 92 06/12/20 16:00 25 141/87 (101) 92 Mechanical Ventilator 40.00 06/12/20 15:45 22 127/91 (103) 91 06/12/20 15:33 91 26 91 25 06/12/20 15:32 92 131/96 06/12/20 15:30 25 131/96 (108) 96 06/12/20 15:15 25 112/65 (82) 91 06/12/20 15:00 29 121/70 (86) 92 Mechanical Ventilator 40.00 06/12/20 14:45 21 110/66 (79) 89 06/12/20 14:30 23 107/68 (80) 91 06/12/20 14:15 25 115/67 (83) 90 06/12/20 14:00 23 112/67 (82) 90 Mechanical Ventilator 40.00 06/12/20 13:45 25 109/71 (85) 90 06/12/20 13:30 19 116/70 (84) 90 06/12/20 13:15 21 118/60 (81) 90 06/12/20 13:00 25 112/67 (83) 90 06/12/20 13:00 91 06/12/20 12:45 92 109/70 06/12/20 12:45 27 109/73 (86) 90 Mechanical Ventilator 40.00 18 12:31 36.2 06/12/20 12:30 33 109/70 (84) 90 06/12/20 12:20 91 26 90 25 20 12:15 25 115/69 (88) 90 06/12/20 12:00 35 118/67 (85) 90 Mechanical Ventilator 40.00 06/12/20 11:45 25 110/65 (81) 91 06/12/20 11:30 24 108/66 (81) 91 06/12/20 11:15 38 109/65 (83) 91 06/12/20 11:00 87 21 105/64 (77) 91 Mechanical Ventilator 40.00 06/12/20 10:45 86 26 113/81 (92) 92 06/12/20 10:30 87 25 118/79 (93) 92 06/12/20 10:15 86 26 119/76 (89) 91 06/12/20 10:07 86 122/75 06/12/20 10:00 86 32 122/75 (90) 91 Mechanical Ventilator 40.00 06/12/20 09:45 86 26 119/78 (92) 91 06/12/20 09:30 86 25 125/79 (94) 96 06/12/20 09:15 108 30 117/79 (92) 06/12/20 09:00 87 26 122/79 (94) 87 Mechanical Ventilator 40.00 06/12/20 08:45 87 25 121/77 (91) 92 06/12/20 08:39 88 125/79 06/12/20 08:30 89 26 125/79 (93) 87 06/12/20 08:15 90 25 127/77 (92) 90 06/12/20 08:11 35.9 06/12/20 08:00 92 26 126/80 (96) 94 Mechanical Ventilator 40.00 06/12/20 07:54 94 Mechanical Ventilator 30.00 06/12/20 07:45 92 25 128/82 (92) 91 06/12/20 07:30 122/78 (91) 06/12/20 07:28 89 91/76 06/12/20 07:15 31 91/76 (81) 97 06/12/20 07:12 86 26 98 30 06/12/20 07:00 89 06/12/20 07:00 25 110/71 (83) 98 Mechanical Ventilator 40.00 06/12/20 06:45 34 115/73 (88) 100 06/12/20 06:30 26 114/71 (86) 99 06/12/20 06:15 27 127/79 (92) 99 I & O 06/13/20 07:00 Intake Total 3040 ml Output Total 875 ml Balance 2165 ml Height & Weight Height: 6'2.00" Weight: 371lbs. 1.0oz. 168.186634ty; 57.64 BMI Method:Stated General Appearance: No Apparent Distress, WD/WN, Chronically ill, Obese HEENT: PERRL/EOMI, Normal ENT Inspection Respiratory: Lungs Clear Cardiovascular: Regular Rate, Rhythm Capillary Refill: Less Than 3 Seconds Peripheral Pulses: 1+ Dorsalis Pedis (R), 1+ Left Dors-Pedis (L) Gastrointestinal: normal bowel sounds, non tender, soft Extremity: Inflammation, Pedal Edema, Other Neurologic/Psychiatric: Disoriented Skin: Warm/Dry, Erythema, Other Lymphatic: No Adenopathy Results Lab Laboratory Tests 06/12/20 02:30 06/13/20 02:00 Assessment/Plan Assessment/Plan Acute respiratory failure -sedated on vent -intubated 06/10 -FiO2 40%, PEEP 5 -ABG reviewed. -Will not wean vent since pt needs to be transferred. Sepsis with leukocytosis -improving -On Zosyn and zyvox -PCT elevated Morbid obesity with OHS Acute worsening renal failure with metabolic acidosis, hyperphos, and hyperkalemia -Will transfer for HD and nephrology support. -Will start Bicarb gtt. CHF hx -EF 30-35% in July -Cardiology consulted Peripheral arterial disease Chronic venostasis changes I called and discussed with and she is ok with transferring pt for nephrology support. I will start with [facility] then branch out from there. [facility] will proceed with transfer. Critical Care: Critically Ill Patient Time spent with patient (mins): 60 MARIA ELENA GODINEZ DO Jun 13, 2020 06:06
--- NOTE | 2020-06-13 06:06 | Diagnostic Imaging Report ---
EXAMINATION: Portable semierect AP chest at 2:33 AM INDICATION: Respiratory distress The marked cardiomegaly noted on the prior exam of 06/12/2020 is again evident and no different. The lung bases are not well penetrated and consequently difficult to assess. The lungs, where visualized, remain relatively clear. The mediastinum is prominent but no different than on the prior exam. The osseous structures are intact. The supportive tubes and lines seem similar in position. The distal portion of the NG line is difficult to assess, however. IMPRESSION: Stable chest. There has been no adverse change since the prior exam. Dictated by: Dictated on workstation # [id number]
[2020-06-13] MEDS ORDERED: FLUCONAZOLE 200 MG/100 ML 100 ML IV ONE (06:15)
[2020-06-13] MEDS ORDERED: SODIUM BICARB 8.4% 50 MEQ/50 ML VIAL ONE (06:21)
[2020-06-13] MEDS: inSUlin ASPART (NovoLOG) 1 UNIT/0.01 ML (CHARGE PER UNIT) SC SCH (06:45)
[2020-06-13] MEDS: LEVOTHYROXINE 50 MCG (LEVOTHROID) TAB PO SCH (06:56)
--- NOTE | 2020-06-13 07:13 | NUR ---
THIS RN NOTIFIED [facility] CAPTAIN, MIGUEL, OF NEED FOR TRANSFER TO [facility] FOR NEPHROLOGY AND DIALYSIS.
[2020-06-13] MEDS: CYANOCOBALAMIN 1,000 MCG (VITAMIN B-12) TABLET PO SCH (08:37)
[2020-06-13] MEDS: LINEZOLID IVPB 300 ML IV SCH (08:37)
[2020-06-13] MEDS: meTOprolol TARTRATE 50 MG (LOPRESSOR) TAB PO SCH (08:38)
[2020-06-13] MEDS: GABAPENTIN 100 MG (NEURONTIN) CAP PO SCH (08:38)
[2020-06-13] MEDS: CALCIUM ACETATE 667 MG CAP (PHOSLO) PO SCH (08:38)
[2020-06-13] MEDS: DOCUSATE SODIUM 100 MG (COLACE) CAP PO SCH (08:38)
[2020-06-13] MEDS: PANTOPRAZOLE 20 MG TABLET (PROTONIX) PO SCH (08:39)
[2020-06-13] MEDS: PANTOPRAZOLE 40 MG (PROTONIX) VIAL IV SCH (08:43)
--- NOTE | 2020-06-13 14:19 | Discharge Summary ---
Discharge Summary Hospital Course Was the Problem List Reviewed?: Yes Problems/Dx: (1) Sepsis Status: Acute Qualifiers: Qualified Codes: A41.9 - Sepsis, unspecified organism (2) Cellulitis Status: Acute Qualifiers: Qualified Codes: L03.119 - Cellulitis of unspecified part of limb (3) Debility Status: Acute (4) CHF (congestive heart failure) Status: Chronic Qualifiers: Qualified Codes: I50.22 - Chronic systolic (congestive) heart failure (5) Supplemental oxygen dependent Status: Chronic (6) COPD (chronic obstructive pulmonary disease) Status: Chronic Qualifiers: Qualified Codes: J43.1 - Panlobular emphysema (7) Diabetes mellitus Status: Chronic Qualifiers: Qualified Codes: E11.65 - Type 2 diabetes mellitus with hyperglycemia; Z79.4 - manager intermediate (current) use of insulin (8) Chronic kidney disease (CKD) Status: Chronic Qualifiers: Qualified Codes: N18.3 - Chronic kidney disease, stage 3 (moderate) (9) DVT prophylaxis Status: Acute Hospital Course Date of Admission: Jun 05, 2020 at 03:44 Admission Diagnosis : Family Physician/Provider: Jose Luis Huynh Date of Discharge: 06/13/20 Discharge Diagnosis: Renal failure, VDRF, OHS, HTN, morbid obesity Hospital Course: Long course after admitted for severe venous stasis dermatitis he suffered a decompensation episode requiring transfer to ICU and ultimately intubated due to CO2 narcosis. Renal failure on chronic basis was monitored closely and ultimately worsened to the point of transfer to [facility] for Nephrology and possible HD. Morbid obesity precluded CT scans due to over weight requirements of the table. Labs and Pending Lab Test: Laboratory Tests 06/12/20 17:22: Glucometer 242H 06/12/20 23:10: Glucometer 234H 06/13/20 02:00: White Blood Count 10.3, Red Blood Count 4.36, Hemoglobin 10.4L, Hematocrit 37L, Mean Corpuscular Volume 86, Mean Corpuscular Hemoglobin 24L, Mean Corpuscular Hemoglobin Concent 28L, Red Cell Distribution Width 16.4H, Platelet Count 331, Mean Platelet Volume 10.4, Immature Granulocyte % (Auto) 4, Neutrophils (%) (Auto) 68, Lymphocytes (%) (Auto) 14, Monocytes (%) (Auto) 11, Eosinophils (%) (Auto) 2, Basophils (%) (Auto) 1, Neutrophils # (Auto) 7.0, Lymphocytes # (Auto) 1.5, Monocytes # (Auto) 1.2H, Eosinophils # (Auto) 0.2, Basophils # (Auto) 0.1, Immature Granulocyte # (Auto) 0.4H, Sodium Level 133L, Potassium Level 5.0, Chloride Level 100, Carbon Dioxide Level 18L, Anion Gap 15H, Blood Urea Nitrogen 73H, Creatinine 3.35H, Estimat Glomerular Filtration Rate 18, BUN/Creatinine Ratio 22, Glucose Level 239H, Calcium Level 8.2L, Phosphorus Level 6.0H, Magnesium Level 2.3 06/13/20 02:03: Blood Gas Puncture Site LEFT RADIAL, Blood Gas Patient Temperature 36.6, Arterial Blood pH 7.32*L, Arterial Blood Partial Pressure CO2 42, Arterial Blood Partial Pressure O2 84, Arterial Blood HCO3 21L, Arterial Blood Total CO2 22.3, Arterial Blood Oxygen Saturation 95, Arterial Blood Base Excess -4.2L, Gene Test YES-POS, Blood Gas Ventilator Setting YES, Blood Gas Inspired Oxygen 40% 06/13/20 06:33: Glucometer 202H 06/13/20 06:45: Lactic Acid Level 1.19 Microbiology 06/10/20 Urine Culture - Final, Complete NO GROWTH 06/10/20 Blood Culture - Preliminary, Resulted No growth 06/10/20 Gram Stain - Final, Complete 06/10/20 Sputum Culture - Final, Complete Usual upper respiratory clinton YEAST Home Meds Active Reported Metoprolol Succinate 200 Mg Tab.er.24h 100 Mg PO DAILY TAKES OF A 200MG TAB Levothyroxine (Levothyroxine Sodium) 50 Mcg Capsule 50 Mcg PO 0200 Topiramate 25 Mg Tablet 12.5-25 Mg PO HS Furosemide 40 Mg Tablet 40 Mg PO DAILY Proair Hfa (Albuterol Sulfate) 1 Puff Puff 2 Puff IH Q4H PRN 1 PUFF = 90 MCG Novolog Flexpen (Insulin Aspart) 300 Units/3 Ml Solution 36 Units SQ TIDAC Lantus (Insulin Glargine,Hum.rec.anlog) 100 Unit/1 Ml Vial 80 Unit SQ HS Cyclobenzaprine HCl 10 Mg Tablet 10 Mg PO BID PRN Gabapentin 100 Mg Capsule 300 Mg PO HS TAKES 3 (100MG) CAPSULES Gabapentin 100 Mg Capsule 100 Mg PO DAILY Aspirin EC (Aspirin) 81 Mg Tablet.dr 81 Mg PO HS Omeprazole 20 Mg Capsule.dr 20 Mg PO DAILY B-12 (Cyanocobalamin (Vitamin B-12)) 1,000 Mcg Tablet 1,000 Mcg PO DAILY Pravastatin Sodium 40 Mg Tablet 20 Mg PO HS TAKES 1/2 (40MG) TABLET Assessment/Pt Instructions transfer Discharge Planning: <30 minutes discharge planning Discharge Physical Examination Vital Signs Vital Signs Date Time Temp Pulse Resp B/P (MAP) Pulse Ox O2 Delivery O2 Flow Rate FiO2 06/13/20 09:00 93 25 124/72 (88) 94 Mechanical Ventilator 40.00 06/13/20 07:33 36.8 06/13/20 07:14 40 General Appearance: No Apparent Distress, WD/WN, Chronically ill, Obese, Other (intubated) Allergies: Coded Allergies: fentanyl (Verified Allergy, Severe, 08/08/19) meperidine (Verified Allergy, Unknown, 02/12/17) Uncoded Allergies: MSG (Allergy, Severe, Anaphylaxis, 06/08/20) MSG FROM FOOD PRESERVATIVE iv contrast (Adverse Reaction, Intermediate, 07/10/17) Discharge Summary Date of Admission Jun 05, 2020 at 03:44 Date of Discharge Jun 13, 2020 at 09:30 Discharge Diagnosis Assessment: Sepsis Lower extremities cellulitis Venous stasis dermatitis chronic CKD DM Obesity Plan: IV abx Monitor creatinine Wound care 06/09/20: IV anx Wound care Cardiology consultation 06/10/20: Tx to ICU APpreciate Dr Pang Patient weighs too much for CT scan table 06/11/20: Vent Monitor creat Abx 06/12/20: Vent Monitor closely (1) Sepsis Status: Acute Qualifiers: Qualified Codes: A41.9 - Sepsis, unspecified organism (2) Cellulitis Status: Acute Qualifiers: Qualified Codes: L03.119 - Cellulitis of unspecified part of limb (3) Debility Status: Acute (4) CHF (congestive heart failure) Status: Chronic Qualifiers: Qualified Codes: I50.22 - Chronic systolic (congestive) heart failure (5) Supplemental oxygen dependent Status: Chronic (6) COPD (chronic obstructive pulmonary disease) Status: Chronic Qualifiers: Qualified Codes: J43.1 - Panlobular emphysema (7) Diabetes mellitus Status: Chronic Qualifiers: Qualified Codes: E11.65 - Type 2 diabetes mellitus with hyperglycemia; Z79.4 - manager intermediate (current) use of insulin (8) Chronic kidney disease (CKD) Status: Chronic Qualifiers: Qualified Codes: N18.3 - Chronic kidney disease, stage 3 (moderate) (9) DVT prophylaxis Status: Acute Clinical Quality Measures DVT/VTE Risk/Contraindication: Risk Factor Score Per Nursin RFS Level Per Nursing on Admit: 4+=Very High SELENE BAILEY DO Jun 13, 2020 14:19
[2020-06-14] MEDS ORDERED: FLUCONAZOLE 100 MG/50 ML IVPB IV SCH (09:00)
[2020-06-14] MEDS ORDERED: FLUCONAZOLE 200 MG/100 ML 50 ML, EMPTY IV BAG (PVC) 1 EA IV SCH ×2 (09:00)
== END 2020-06-13 09:30 | disposition designated cancer center or children's hospital (05) | DRG 871 ==
LOC: EDUNIT# 00:43 → ER 00:45 → 4TH 03:44 → ICU 06-10 13:12
PROVIDERS: ADMIT Family Medicine; ATTEND Internal Medicine
PROC: 5A1945Z Respiratory Ventilation, 24-96 Consecutive Hours (ICD-10-PCS; principal; 2020-06-10)
PROC: 0BH17EZ Insertion of Endotracheal Airway into Trachea, Via Natural or Artificial Opening (ICD-10-PCS; 2020-06-10)
DX: A41.9 Sepsis, unspecified organism (principal); J96.01 Acute respiratory failure with hypoxia; J96.02 Acute respiratory failure with hypercapnia; I50.43 Acute on chronic combined systolic (congestive) and diastolic (congestive) heart failure; L03.119 Cellulitis of unspecified part of limb; I13.0 Hypertensive heart and chronic kidney disease with heart failure and stage 1 through stage 4 chronic kidney disease, or unspecified chronic kidney disease; E66.2 Morbid (severe) obesity with alveolar hypoventilation; I42.9 Cardiomyopathy, unspecified; N17.9 Acute kidney failure, unspecified; Z68.44 Body mass index [BMI] 60.0-69.9, adult; J43.1 Panlobular emphysema; E11.65 Type 2 diabetes mellitus with hyperglycemia; N18.30 Chronic kidney disease, stage 3 unspecified; I87.8 Other specified disorders of veins; I25.10 Atherosclerotic heart disease of native coronary artery without angina pectoris; E78.00 Pure hypercholesterolemia, unspecified; Z20.828 Contact with and (suspected) exposure to other viral communicable diseases; E11.42 Type 2 diabetes mellitus with diabetic polyneuropathy; M19.90 Unspecified osteoarthritis, unspecified site; G89.29 Other chronic pain; E03.9 Hypothyroidism, unspecified; E11.22 Type 2 diabetes mellitus with diabetic chronic kidney disease; E11.51 Type 2 diabetes mellitus with diabetic peripheral angiopathy without gangrene; E11.21 Type 2 diabetes mellitus with diabetic nephropathy; M54.9 Dorsalgia, unspecified; I25.2 Old myocardial infarction; Z99.81 Dependence on supplemental oxygen; Z79.4 Long term (current) use of insulin; Z79.82 Long term (current) use of aspirin; Z87.891 Personal history of nicotine dependence
CPT/HCPCS: 36415; 36569; 36600; 71045; 76937; 80048; 80053; 80202; 81000; 82805; 82962; 83605; 83615; 83735; 83880; 84100; 84145; 84443; 84478; 84484; 85007; 85025; 85027; 85610; 85730; 86141; 87040; 87070; 87088; 87205; 87635; 87804; 93306; 94002; 94003; 94640; 94760; 94799; 96374; 96375